=== PATIENT | female | born 1950 | race Caucasian/White ===

== ENCOUNTER 2020-05-15 13:24 | Outpatient (REF) | payer MEDICARE, BC, OTHER, SELFPAY ==
[2020-05-15 16:34] LABS: MANUAL DIFF FLAG NO
[2020-05-15 16:36] LABS: Basophils Percent Auto 0.5 % (0-2); Eosinophils Absolute Auto 0.1 X10*3/uL (0.0-0.4); Eosinophils Percent Auto 0.8 % (0-4); Hematocrit 42.1 % (37-47); Hemoglobin 13.6 g/dl (12.0-16.0); Imm Gran Abs Auto 0.03 X10*3/uL (0.00-0.03); Imm Gran Pct Auto 0.4 % (0.0-0.4); Lymphocytes Absolute Auto 1.6 X10*3/uL (1.2-4.9); Lymphocytes Percent Auto 18.3 % (20-40); Mean Corpuscular HGB Conc 32.3 g/dl (31.0-35.0); Mean Corpuscular Hemoglobin 30.3 pg (27.0-33.0); Mean Corpuscular Volume 93.8 fL (80-98); Mean Platelet Volume 9.3 fL (9.4-12.3); Monocytes Absolute Auto 0.9 X10*3/uL (0.1-1.2); Monocytes Percent Auto 10.7 % (2-11); Neutrophils Absolute Auto 5.9 X10*3/uL (2.0-8.3); Neutrophils Percent Auto 69.3 % (45-73); Platelet Count 247 X10*3/uL (160-400); Red Blood Count 4.49 X10*6/uL (4.20-5.50); Red Cell Distribution Width 15.4 % (11.0-16.0); White Blood Count 8.5 X10*3/uL (4.8-10.8)
[2020-05-15 17:17] LABS: Alanine Aminotransferase 16 U/L (0-31); Albumin Level 3.6 g/dL (3.5-5.0); Alkaline Phosphatase 119 U/L (39-117); Anion Gap 14 (12-20); Aspartate Amino Transferase 27 U/L (5-31); Bilirubin Total 0.9 mg/dL (0.0-1.0); Blood Urea Nitrogen 33 mg/dL (9-16); Calcium 8.9 mg/dL (8.4-10.2); Carbon Dioxide 36 mmol/L (22-29); Chloride 90 mmol/L (96-108); Estimated Glomerular Filt Rate 29; Magnesium 2.6 mg/dL (1.6-2.6); Phosphorus 4.4 mg/dL (2.7-4.5); Potassium 3.2 mmol/l (3.3-5.1); Sodium 137 mmol/L (135-145); Uric Acid 12.5 mg/dL (2.4-5.7)
[2020-05-15 17:19] LABS: Renal w Reflex Lab Use Only Order verified
[2020-05-15 17:24] LABS: B Type Natriuretic Peptide 603 pg/mL (<100)
[2020-05-15 17:39] LABS: Vitamin D 25-OH Total 35.5 ng/mL (>30)
[2020-05-15 18:01] LABS: Creatinine Urine 31.22 mg/dL; Sodium Urine Random < 20.0 mmol/L; Total Protein Urine Random < 7 mg/dL (<12)
[2020-05-15 18:02] LABS: Uric Acid Urine Random 18.6 mg/dL
[2020-05-17 16:37] LABS: Calcium (PTHI) 9.2 mg/dL (8.6-10.4); PTHI 122 pg/mL (14-64)
== END 2020-05-15 13:25 | disposition home or self-care (01) ==
LOC: HO.HMGCLDS 13:24
PROVIDERS: PCP Internal Medicine; Visit Provider Internal Medicine Nephrology
DX: E11.22 Type 2 diabetes mellitus with diabetic chronic kidney disease (principal); E11.21 Type 2 diabetes mellitus with diabetic nephropathy; I13.0 Hypertensive heart and chronic kidney disease with heart failure and stage 1 through stage 4 chronic kidney disease, or unspecified chronic kidney disease; N18.4 Chronic kidney disease, stage 4 (severe); I50.22 Chronic systolic (congestive) heart failure; E66.01 Morbid (severe) obesity due to excess calories; N28.9 Disorder of kidney and ureter, unspecified; E87.6 Hypokalemia; R31.9 Hematuria, unspecified; E55.9 Vitamin D deficiency, unspecified; N25.81 Secondary hyperparathyroidism of renal origin; R80.8 Other proteinuria
CPT/HCPCS: 36415; 80051; 82040; 82247; 82306; 82310; 82565; 83735; 83880; 83970; 84075; 84100; 84156; 84300; 84450; 84460; 84520; 84550; 84560; 85025

== ENCOUNTER → 2020-06-02 09:40 | Outpatient (BNVA) | payer MEDICARE, OTHER, SELFPAY | PROVIDERS: PCP Internal Medicine; Referring Provider Internal Medicine; Visit Provider Internal Medicine Pulmonary Disease | DX: J44.9 Chronic obstructive pulmonary disease, unspecified (principal); G47.33 Obstructive sleep apnea (adult) (pediatric); Z99.81 Dependence on supplemental oxygen | CPT/HCPCS: 99212 ==

== ENCOUNTER 2020-06-05 12:51 | Outpatient (REF) | payer MEDICARE, OTHER, SELFPAY ==
[2020-06-05 14:40] LABS: Anion Gap 11 (12-20); Blood Urea Nitrogen 34 mg/dL (9-16); Calcium 9.1 mg/dL (8.4-10.2); Carbon Dioxide 33 mmol/L (22-29); Chloride 96 mmol/L (96-108); Estimated Glomerular Filt Rate 36; Glucose Random 132 mg/dL (60-115); Potassium 3.8 mmol/l (3.3-5.1); Sodium 136 mmol/L (135-145)
[2020-06-05 14:57] LABS: B Type Natriuretic Peptide 736 pg/mL (<100)
== END 2020-06-05 12:52 | disposition home or self-care (01) ==
LOC: HO.HMGCLDS 12:51
PROVIDERS: PCP Internal Medicine; Visit Provider Nurse Practitioner Family
DX: I50.30 Unspecified diastolic (congestive) heart failure (principal)
CPT/HCPCS: 80048; 83880

== ENCOUNTER → 2020-06-13 09:26 | Outpatient (BNVA) | payer MEDICARE, OTHER, SELFPAY | PROVIDERS: PCP Internal Medicine; Referring Provider Internal Medicine; Visit Provider Internal Medicine Cardiovascular Disease | DX: I50.814 Right heart failure due to left heart failure (principal); I50.30 Unspecified diastolic (congestive) heart failure; I48.19 Other persistent atrial fibrillation; I27.20 Pulmonary hypertension, unspecified; G47.33 Obstructive sleep apnea (adult) (pediatric); J44.9 Chronic obstructive pulmonary disease, unspecified; Z79.01 Long term (current) use of anticoagulants; Z79.899 Other long term (current) drug therapy; Z99.81 Dependence on supplemental oxygen | CPT/HCPCS: Q3014 ==

== ENCOUNTER 2020-07-11 10:23 | Outpatient (REF) | payer MEDICARE, OTHER, SELFPAY ==
--- NOTE | 2020-07-11 | MM_ITS ---
EXAMINATION: MM SCREENING DIGITAL BREAST TOMOSYNTHESIS, BILATERAL CLINICAL INFORMATION: Screening. Asymptomatic. The lifetime risk of breast cancer based on the Tyrer-Cuzick Model is 3%. COMPARISON: Mammography: 07/06/2019, 06/30/2018, 05/03/2017 TECHNIQUE: Digital breast tomosynthesis is performed in both the craniocaudal and mediolateral oblique views along with computer-aided detection (CAD). Synthesized 2D images are generated from the tomosynthesis. Additional left exaggerated CC and left MLO views are provided. Technologist notes technically challenging exam, tailored to patient capabilities. FINDINGS: There are scattered areas of fibroglandular density (ACR BI-RADS breast composition Category b). Parenchymal pattern is similar to prior studies. There is no developing density or interval mass or architectural abnormality. Again, there are multiple mildly prominent draining veins, more numerous on right. Scattered bilateral round and vascular calcifications are present. The axilla are unremarkable. No significant changes. MM/MM tomosynthesis screening BI IMPRESSION: No significant changes from prior studies. ASSESSMENT: BI-RADS 2: Benign RECOMMENDATION: Routine annual mammography screening. This patient's information was entered into a reminder system with a target due date for their next mammogram.
== END 2020-07-11 10:24 | disposition home or self-care (01) ==
LOC: HO.MAMMO 10:23
PROVIDERS: PCP Internal Medicine; Visit Provider Internal Medicine
DX: Z12.31 Encounter for screening mammogram for malignant neoplasm of breast (principal)
CPT/HCPCS: 77063; 77067

== ENCOUNTER → 2020-07-24 10:09 | Outpatient (BNVA) | payer MEDICARE, OTHER, SELFPAY | PROVIDERS: PCP Internal Medicine; Referring Provider Internal Medicine; Visit Provider Internal Medicine Cardiovascular Disease | DX: I50.814 Right heart failure due to left heart failure (principal); I50.30 Unspecified diastolic (congestive) heart failure; I48.19 Other persistent atrial fibrillation | CPT/HCPCS: Q3014 ==

== ENCOUNTER → 2020-07-31 09:03 | Outpatient (BNVA) | payer MEDICARE, OTHER, SELFPAY | PROVIDERS: PCP Internal Medicine; Referring Provider Internal Medicine; Visit Provider Internal Medicine | DX: Z13.89 Encounter for screening for other disorder (principal) | CPT/HCPCS: Q3014 ==

== ENCOUNTER 2020-08-16 14:44 | Outpatient (REF) | payer MEDICARE, OTHER, SELFPAY ==
[2020-08-16 17:03] LABS: Alanine Aminotransferase 16 U/L (0-31); Albumin Level 3.9 g/dL (3.5-5.0); Alkaline Phosphatase 130 U/L (39-117); Anion Gap 16 (12-20); Aspartate Amino Transferase 25 U/L (5-31); Bilirubin Total 0.8 mg/dL (0.0-1.0); Blood Urea Nitrogen 50 mg/dL (9-16); Calcium 9.1 mg/dL (8.4-10.2); Carbon Dioxide 33 mmol/L (22-29); Chloride 91 mmol/L (96-108); Cholesterol 125 mg/dL; Estimated Glomerular Filt Rate 29; Glucose Random 185 mg/dL (60-115); HDL Cholesterol 46 mg/dL; LDL Cholesterol Calculated 62 mg/dl; Potassium 4.3 mmol/l (3.3-5.1); Sodium 136 mmol/L (135-145); Total Protein 7.3 g/dL (6.5-8.0); Triglycerides 89 mg/dL
[2020-08-16 17:07] LABS: B Type Natriuretic Peptide 549 pg/mL (<100)
[2020-08-16 17:11] LABS: Creatinine Urine 39.88 mg/dL; Microalbumin Urine < 5.0 mg/L
[2020-08-18 09:26] LABS: LDL Cholesterol Direct 65 mg/dL (<100)
[2020-08-19 21:12] LABS: Glutamic acid decarboxylase Ab <5 IU/mL (<5)
[2020-08-23 14:17] LABS: Insulinoma associated 2 aatb <5.4 U/mL (<5.4)
[2020-08-27 02:17] LABS: Islet Cell Antibody Screen NEGATIVE (NEGATIVE)
== END 2020-08-16 14:45 | disposition home or self-care (01) ==
LOC: HO.HMGCLDS 14:44
PROVIDERS: Absent Provider Internal Medicine; PCP Internal Medicine; Visit Provider Internal Medicine Cardiovascular Disease
DX: I13.0 Hypertensive heart and chronic kidney disease with heart failure and stage 1 through stage 4 chronic kidney disease, or unspecified chronic kidney disease (principal); E11.22 Type 2 diabetes mellitus with diabetic chronic kidney disease; I50.30 Unspecified diastolic (congestive) heart failure; I50.814 Right heart failure due to left heart failure; N18.9 Chronic kidney disease, unspecified
CPT/HCPCS: 36415; 80053; 80061; 82043; 83721; 83880; 86255; 86341

== ENCOUNTER → 2020-08-28 09:52 | Outpatient (BNVA) | payer MEDICARE, BC, OTHER, SELFPAY | PROVIDERS: PCP Internal Medicine; Visit Provider Internal Medicine | DX: Z13.89 Encounter for screening for other disorder (principal) | CPT/HCPCS: Q3014 ==

== ENCOUNTER → 2020-09-14 09:50 | Outpatient (BNVA) | payer MEDICARE, OTHER, SELFPAY | PROVIDERS: PCP Internal Medicine; Visit Provider Internal Medicine Cardiovascular Disease | DX: Z13.89 Encounter for screening for other disorder (principal) | CPT/HCPCS: Q3014 ==

== ENCOUNTER 2020-09-21 06:19 | Outpatient (REF) | payer MEDICARE, OTHER, SELFPAY ==
[2020-09-21 11:40] LABS: Hematocrit 41.2 % (37-47); Hemoglobin 14.2 g/dl (12.0-16.0); Mean Corpuscular HGB Conc 34.5 g/dl (31.0-35.0); Mean Corpuscular Hemoglobin 32.4 pg (27.0-33.0); Mean Corpuscular Volume 94.1 fL (80-98); Mean Platelet Volume 9.2 fL (9.4-12.3); Platelet Count 248 X10*3/uL (160-400); Red Blood Count 4.38 X10*6/uL (4.20-5.50); Red Cell Distribution Width 13.6 % (11.0-16.0); White Blood Count 10.2 X10*3/uL (4.8-10.8)
[2020-09-21 12:09] LABS: Anion Gap 14 (12-20); Blood Urea Nitrogen 40 mg/dL (9-16); Calcium 9.5 mg/dL (8.4-10.2); Carbon Dioxide 36 mmol/L (22-29); Chloride 86 mmol/L (96-108); Estimated Glomerular Filt Rate 30; Glucose Random 297 mg/dL (60-115); Potassium 3.3 mmol/L (3.3-5.1); Sodium 133 mmol/L (135-145)
[2020-09-21 12:12] LABS: B Type Natriuretic Peptide 267 pg/mL (<100)
== END 2020-09-21 06:20 | disposition home or self-care (01) ==
LOC: HO.LHD 06:19
PROVIDERS: Visit Provider Internal Medicine Cardiovascular Disease
DX: I50.30 Unspecified diastolic (congestive) heart failure (principal); J44.9 Chronic obstructive pulmonary disease, unspecified
CPT/HCPCS: 36415; 80048; 83880; 85027

== ENCOUNTER → 2020-09-28 09:07 | Outpatient (BNVA) | payer MEDICARE, BC, SELFPAY | PROVIDERS: PCP Internal Medicine; Visit Provider Internal Medicine Pulmonary Disease | DX: J44.9 Chronic obstructive pulmonary disease, unspecified (principal); G47.33 Obstructive sleep apnea (adult) (pediatric); Z99.81 Dependence on supplemental oxygen | CPT/HCPCS: 99212 ==

== ENCOUNTER → 2020-10-02 07:55 | Outpatient (BNVA) | payer MEDICARE, BC, SELFPAY | PROVIDERS: PCP Internal Medicine; Visit Provider Internal Medicine | DX: Z13.89 Encounter for screening for other disorder (principal) | CPT/HCPCS: Q3014 ==

== ENCOUNTER → 2020-10-23 09:10 | Outpatient (BNVA) | payer MEDICARE, BC, SELFPAY | PROVIDERS: PCP Internal Medicine; Visit Provider Internal Medicine | DX: Z13.89 Encounter for screening for other disorder (principal) | CPT/HCPCS: Q3014 ==

== ENCOUNTER → 2020-11-14 09:29 | Outpatient (BNVA) | payer MEDICARE, BC, SELFPAY | PROVIDERS: PCP Internal Medicine; Visit Provider Nurse Practitioner Family | DX: I50.30 Unspecified diastolic (congestive) heart failure (principal); I48.19 Other persistent atrial fibrillation; I10 Essential (primary) hypertension; E11.9 Type 2 diabetes mellitus without complications; G47.33 Obstructive sleep apnea (adult) (pediatric) | CPT/HCPCS: Q3014 ==

== ENCOUNTER → 2020-12-14 09:57 | Outpatient (BNVA) | payer MEDICARE, BC, SELFPAY | PROVIDERS: PCP Internal Medicine; Visit Provider Internal Medicine | DX: E11.22 Type 2 diabetes mellitus with diabetic chronic kidney disease (principal); I12.9 Hypertensive chronic kidney disease with stage 1 through stage 4 chronic kidney disease, or unspecified chronic kidney disease; N18.9 Chronic kidney disease, unspecified; E78.5 Hyperlipidemia, unspecified | CPT/HCPCS: 82947; 99212 ==

== ENCOUNTER 2021-01-01 01:03 | Outpatient (REF) | payer MEDICARE, BC, SELFPAY | END 2021-01-01 01:04 | disposition home or self-care (01) | LOC: HO.LHD 01:03 | PROVIDERS: Visit Provider Internal Medicine | DX: Z13.89 Encounter for screening for other disorder (principal) ==

== ENCOUNTER 2021-01-09 06:08 | Outpatient (REF) | payer MEDICARE, BC, SELFPAY ==
[2021-01-09 11:28] LABS: Alanine Aminotransferase 13 U/L (0-31); Albumin Level 3.8 g/dL (3.5-5.0); Alkaline Phosphatase 126 U/L (39-117); Anion Gap 16 (12-20); Aspartate Amino Transferase 28 U/L (5-31); Bilirubin Total 1.2 mg/dL (0.0-1.0); Blood Urea Nitrogen 34 mg/dL (9-16); Calcium 9.2 mg/dL (8.4-10.2); Carbon Dioxide 31 mmol/L (22-29); Chloride 94 mmol/L (96-108); Cholesterol 118 mg/dL; Estimated Glomerular Filt Rate 37; Glucose Random 78 mg/dL (60-115); HDL Cholesterol 45 mg/dL; LDL Cholesterol Calculated 62 mg/dl; Potassium 3.8 mmol/L (3.3-5.1); Sodium 137 mmol/L (135-145); Total Protein 7.1 g/dL (6.5-8.0); Triglycerides 55 mg/dL
[2021-01-09 12:18] LABS: Creatinine Urine 14.62 mg/dL; Microalbumin Urine < 5.0 mg/L
[2021-01-09 12:22] LABS: Vitamin B12 615 pg/mL (200-900)
[2021-01-10 19:11] LABS: LDL Cholesterol Direct 63 mg/dL (<100)
== END 2021-01-09 06:09 | disposition home or self-care (01) ==
LOC: HO.LHD 06:08
PROVIDERS: Visit Provider Internal Medicine
DX: E11.9 Type 2 diabetes mellitus without complications (principal); E55.9 Vitamin D deficiency, unspecified
CPT/HCPCS: 36415; 80053; 80061; 82043; 82306; 82607; 83721

== ENCOUNTER → 2021-01-30 09:06 | Outpatient (BNVA) | payer MEDICARE, BC, SELFPAY | PROVIDERS: PCP Internal Medicine; Visit Provider Internal Medicine Pulmonary Disease | CPT/HCPCS: Q3014 ==

== ENCOUNTER → 2021-02-08 09:01 | Outpatient (BNVA) | payer MEDICARE, BC, SELFPAY | PROVIDERS: PCP Internal Medicine; Visit Provider Internal Medicine Cardiovascular Disease | DX: Z13.89 Encounter for screening for other disorder (principal) | CPT/HCPCS: Q3014 ==

== ENCOUNTER 2021-02-08 14:06 | Inpatient (IN) | payer MEDICARE, BC, SELFPAY ==
--- NOTE | ~2021-02-08 | XR_ITS ---
EXAMINATION: XR CHEST CLINICAL INFORMATION: Lower extremity edema. COMPARISON: Chest 08/05/2019 TECHNIQUE: Frontal view of the chest was obtained. FINDINGS: The lungs are fairly well-expanded and clear of acute pneumonic process. Heart size is mildly enlarged with prominent pulmonary vascularity questioned mild congestion.. No gross bony abnormality seen except for mild degenerative changes bilateral AC joints and glenohumeral joints. XR/XR chest 1V IMPRESSION: Cardiomegaly with mild pulmonary vascular congestion.
[2021-02-08 14:21] VITALS: BP 108/66; BP 112/78; PULSE 80; PULSE 96; RESP 16; TEMP 36.9; O2SAT 94; O2SAT 96; BMI 38.1
--- NOTE | 2021-02-08 15:32 | ECG_ITS ---
Test Reason : SHORT OF BREATH Blood Pressure : / mmHG Vent. Rate : 092 BPM Atrial Rate : 096 BPM P-R Int : 000 ms QRS Dur : 098 ms QT Int : 404 ms P-R-T Axes : 000 010 -18 degrees QTc Int : 499 ms Atrial fibrillation with premature ventricular or aberrantly conducted complexes Low voltage QRS Incomplete right bundle branch block Abnormal ECG When compared with ECG of 29-JAN-2020 13:27, Vent. rate has decreased BY 55 BPM Referred By: Montse Alexandra Electronically Signed By:Dave Lau
[2021-02-08 16:18] LABS: MANUAL DIFF FLAG NO
[2021-02-08 16:19] LABS: Basophils Percent Auto 0.2 % (0-2); Eosinophils Absolute Auto 0.1 X10*3/uL (0.0-0.4); Eosinophils Percent Auto 1.4 % (0-4); Hematocrit 35.3 % (37-47); Hemoglobin 11.5 g/dl (12.0-16.0); Imm Gran Abs Auto 0.05 X10*3/uL (0.00-0.03); Imm Gran Pct Auto 0.5 % (0.0-0.4); Lymphocytes Absolute Auto 1.2 X10*3/uL (1.2-4.9); Lymphocytes Percent Auto 12.5 % (20-40); Mean Corpuscular HGB Conc 32.6 g/dl (31.0-35.0); Mean Corpuscular Hemoglobin 31.4 pg (27.0-33.0); Mean Corpuscular Volume 96.4 fL (80-98); Monocytes Absolute Auto 1.2 X10*3/uL (0.1-1.2); Monocytes Percent Auto 12.2 % (2-11); Neutrophils Absolute Auto 7.1 X10*3/uL (2.0-8.3); Neutrophils Percent Auto 73.2 % (45-73); Platelet Count 226 X10*3/uL (160-400); Red Blood Count 3.66 X10*6/uL (4.20-5.50); Red Cell Distribution Width 14.9 % (11.0-16.0); White Blood Count 9.7 X10*3/uL (4.8-10.8)
[2021-02-08 16:25] LABS: INTERNATIONAL NORM RATIO 1.5 (0.9-1.1); Prothrombin Time 17.1 SEC (9.9-13.0)
[2021-02-08 16:28] LABS: Partial Thromboplastin Time 38.3 SEC (24.1-38.0)
[2021-02-08] MEDS: Acetaminophen 325 MG TABLET 650 MG PO (16:42)
[2021-02-08] MEDS: Cyclobenzaprine HCl 5 MG TABLET PO (16:42)
[2021-02-08] MEDS: traMADoL HCL 50 MG TABLET PO (16:42)
[2021-02-08] MEDS: Lidocaine 4 % Patch ADH..PATCH 1 PATCH TRANSDERMA (16:43)
[2021-02-08 16:49] LABS: Alanine Aminotransferase 15 U/L (0-31); Albumin Level 3.4 g/dL (3.5-5.0); Alkaline Phosphatase 119 U/L (39-117); Anion Gap 13 (12-20); Aspartate Amino Transferase 30 U/L (5-31); Bilirubin Direct 0.5 mg/dL (0.0-0.5); Bilirubin Total 0.9 mg/dL (0.0-1.0); Blood Urea Nitrogen 40 mg/dL (9-16); Calcium 8.6 mg/dL (8.4-10.2); Carbon Dioxide 29 mmol/L (22-29); Chloride 101 mmol/L (96-108); Creatinine Clr Calc Pharmacy 39.5; Estimated Glomerular Filt Rate 33; Glucose Random 128 mg/dL (60-115); Magnesium 2.6 mg/dL (1.6-2.6); Sodium 139 mmol/L (135-145); Total Protein 6.4 g/dL (6.5-8.0)
--- NOTE | 2021-02-08 16:49 | ED_ITS ---
HPI - General Adult General Chief complaint: General Medical Stated complaint: BRIGIDO LL EDEMA X'S 2 WEEKS,LLE PAIN HX SCIATICA Time Seen by Provider: 02/08/21 15:15 Source: patient Mode of arrival: ambulatory History of Present Illness HPI narrative: 70-year-old female with a past medical history of heart failure with preserved EF, CKD, DM, HLD, HTN, obesity, AFib on Xarelto, tricuspid regurg, pulmonary hypertension, on chronic O2 2L NC, presenting to the ED complaining of bilateral lower extremity edema x1 week with 30 lb weight gain. Reports left-sided buttock/sciatic pain worsening over the past week radiating down left lower extremity which has been prevented her from getting up to use the bathroom this patient has been non compliant with her diuretics. Also reports exertional dyspnea. Denies CP, fever, chills, nausea/vomiting, urinary incontinence/retention, abdominal pain Related Data Home Medications Medication Instructions Recorded Confirmed cholecalciferol (vitamin D3) 25 25 mcg PO DAILY 04/24/20 02/08/21 mcg (1,000 unit) capsule potassium chloride 20 mEq 20 meq PO BID tab 04/24/20 02/08/21 tablet,extended release(part/cryst) vitamin B complex 1 tab PO DAILY 04/24/20 02/08/21 zinc acetate 50 mg (zinc) capsule 50 mg PO DAILY 04/24/20 02/08/21 docusate sodium 100 mg capsule 100 mg PO DAILY 06/13/20 02/08/21 multivitamin 1 tab PO DAILY 06/13/20 02/08/21 blood sugar diagnostic #10 ea 07/31/20 02/08/21 ferrous sulfate 325 mg (65 mg 325 mg PO DAILY 09/14/20 02/08/21 iron) tablet empagliflozin 25 mg tablet 25 mg PO DAILY 11/14/20 02/08/21 spironolactone 25 mg tablet 12.5 mg PO DAILY tab 12/22/20 02/08/21 bumetanide 6 mg PO DAILY 02/08/21 02/08/21 dulaglutide [Trulicity] 1.5 mg SUBCUT TH 02/08/21 02/08/21 insulin aspart U-100 [Novolog 18 unit SUBCUT TIDAC 02/08/21 02/08/21 Flexpen U-100 Insulin] Previous Rx's Medication Instructions Recorded blood sugar diagnostic #100 ea 08/16/20 pravastatin 20 mg tablet 20 mg PO BEDTIME #90 tab 10/02/20 pen needle, diabetic 32 gauge x 1 ea MISCELLANEOUS QID #100 ea 10/25/2012/10 metoprolol succinate 25 mg 25 mg PO BID 90 Days #180 tab 11/07/20 tablet,extended release 24 hr tiotropium bromide 18 mcg capsule 1 cap INHALATION DAILY #90 cap 11/20/20 with inhalation device gabapentin 300 mg capsule 300 mg PO TID 90 Days #270 cap 12/22/20 rivaroxaban 20 mg tablet 20 mg PO BEDTIME #90 tab 12/22/20 lancets 33 gauge #100 ea 01/01/21 insulin glargine 100 unit/mL (3 40 unit SUBCUT DAILY 90 Days #36 ml 01/28/21 mL) subcutaneous pen fluticasone 500 mcg-salmeterol 50 1 inh PO BID #180 g 01/31/21 mcg/dose blistr powdr for inhalation Allergies Allergy/AdvReac Type Severity Reaction Status Date / Time oxycodone [Percocet] Allergy Unknown nausea and Verified 01/30/21 09:07 vomiting Review of Systems Review of Systems: Constitutional: No Fever, No Chills, No Fatigue, No Malaise, +weight gain Cardiovascular: No Chest Pain, No SOB, + Dyspnea on Exertion, No Orthopnea, + Edema Respiratory: No Cough, No Dyspnea Gastrointestinal: No Nausea, No Vomiting, No Abdominal pain Genitourinary: No Dysuria, No Urinary Frequency, No Hematuria, No Urinary Incontinence/retention Musculoskeletal: + joint pain, No Myalgias, No Joint Swelling Skin: No Skin Lesions, No rash Neuro: No Weakness, No Numbness, No Headache Yes all other systems are reviewed and are negative Neurologic: Denies Sensory deficit (Neuro) [facility] Past Medical History Attestation statement: The following information was validated with the patient. Medical History (HFpEF) heart failure with preserved ejection fraction CKD (chronic kidney disease) Diabetes mellitus HLD (hyperlipidemia) HTN (hypertension) senior living (current) use of insulin Morbid obesity Paroxysmal atrial fibrillation Persistent atrial fibrillation Phlebitis of left leg Pulmonary hypertension Right heart failure (secondary to left heart failure) T2DM (type 2 diabetes mellitus) Tricuspid regurgitation Vitamin D deficiency Surgical History History of colectomy (~1983) History of colonoscopy History of hernia repair (~07/2011) History of hysteroscopy (~2007) History of left breast biopsy (~04/09/11) History of left inguinal hernia repair (~01/28/20) Family History Family History Father No problems noted. Mother No problems noted. Brother No problems noted. Son No problems noted. Social History Social History Alcohol intake: never Patient Tobacco Use Status: Former Tobacco user Advance Directives: Yes Advance Directives Information Provided: Yes Advance Directives on File: No Physical Exam Vital Signs: Vital Signs: Last Vital Signs Temp 98.6 F 02/08/21 16:56 Pulse 97 02/08/21 16:56 Resp 20 02/08/21 16:56 BP 111/86 02/08/21 16:56 Pulse Ox 98 02/08/21 16:56 Oxygen Flow Rate 3 02/08/21 14:21 Body Mass Index 38.1 Const: General: cooperative, healthy appearing and no acute distress Orientation/consciousness: patient oriented x3 Limitations: no limitations HENMT: Head: Yes normal to inspection Ears: hearing grossly normal bilaterally General nose exam: Normal external nose present Face and sinus: Yes normal facial exam Eyes: General: appearance normal, both eyes and all related structures EOM: EOMs intact bilaterally Neck: Neck: Yes normal visual inspection Resp: Effort & Inspection: normal respiratory effort Auscultation: clear to auscultation bilaterally and no wheezes Cardio: Rate: regular rate Heart sounds: S1 normal heart sound present and S2 normal heart sound present GI: Inspection: Yes normal to inspection Palpation (GI): Soft to palpation, nontender, no guarding and not rigid Back/Spine/Pelvis: Other: No midline thoracic/lumbar spinous tenderness. + left lower lumbar/left buttock MSK tenderness to palpation Skin: Rashes: no rashes Wounds: no wounds Neuro: Other: No saddle anesthesia General: patient oriented x3, tone normal and moves all extremities Sensory Exam: No Sensory deficit (Neuro) Extrem: Other: 4+ bilateral lower extremity pitting edema General: Yes normal to inspection Course Course Course Narrative: -no leukocytosis, H&H lower than baseline (has been low in the past), renal function at patient's baseline, BNP elevated at 637 -troponin 12.1 > will obtain 3 hour repeat XR chest 1V IMPRESSION: Cardiomegaly with mild pulmonary vascular congestion. >> plan to admit for CHF exacerbation -1730--Patient admitted to hospitalist service for further management. Hospitalist recommended 2mg of IV Bumex and 5 of p.o. Metolazone Medical Decision Making MDM Narrative Medical decision making narrative: 70-year-old female with a past medical history of heart failure with preserved EF, CKD, DM, HLD, HTN, obesity, AFib on Xarelto, tricuspid regurg, pulmonary hypertension, on chronic O2 2L NC, presenting to the ED complaining of bilateral lower extremity edema x1 week with 30 lb weight gain. Also reports exertional dyspnea. On exam VSS, NAD, brigido ateral lower extremity pitting edema noted. No midline spinous tenderness throughout or red flag symptoms. Concern for CHF/fluid overload and sciatic back pain. Low concern for DVT/ACS/PE or cauda equina/cord compression Plan: EKG, labs, UA, CXR. admission Lab Data Result diagrams: 02/08/21 16:13 02/08/21 16:13 Labs: Lab Results 02/08/21 02/08/21 02/08/21 Range/Units 16:13 16:13 16:13 WBC 9.7 (4.8-10.8) X10*3/uL RBC 3.66 L (4.20-5.50) X10*6/uL Hgb 11.5 L (12.0-16.0) g/dl Hct 35.3 L (37-47) % MCV 96.4 (80-98) fL MCH 31.4 (27.0-33.0) pg MCHC 32.6 (31.0-35.0) g/dl RDW 14.9 (11.0-16.0) % Plt Count 226 (160-400) X10*3/uL MPV 8.0 L (9.4-12.3) fL Immature Gran % (Auto) 0.5 H (0.0-0.4) % Neut % (Auto) 73.2 H (45-73) % Lymph % (Auto) 12.5 L (20-40) % [place] % (Auto) 12.2 H (2-11) % Eos % (Auto) 1.4 (0-4) % Baso % (Auto) 0.2 (0-2) % Lymph # (Auto) 1.2 (1.2-4.9) X10*3/uL [place] # (Auto) 1.2 (0.1-1.2) X10*3/uL Eos # (Auto) 0.1 (0.0-0.4) X10*3/uL Baso # (Auto) 0.0 (0.0-0.2) X10*3/uL Abs Immat Gran (auto) 0.05 H (0.00-0.03) X10*3/uL Absolute Neuts (auto) 7.1 (2.0-8.3) X10*3/uL Absolute Nucleated RBC 0.000 (0.0-0.012) X10*3/uL Nucleated RBC % (auto) 0.0 (0.0-0.2) /100WBC PT 17.1 H (9.9-13.0) SEC INR 1.5 H (0.9-1.1) APTT 38.3 H (24.1-38.0) SEC Sodium 139 (135-145) mmol/L Potassium 4.0 (3.3-5.1) mmol/L Chloride 101 (96-108) mmol/L Carbon Dioxide 29 (22-29) mmol/L Anion Gap 13 (12-20) BUN 40 H (9-16) mg/dL Creatinine 1.56 H (0.5-1.4) mg/dL Estim Creat Clear Calc 39.5 Estimated GFR 33 Random Glucose 128 H D (60-115) mg/dL Calcium 8.6 D (8.4-10.2) mg/dL Magnesium 2.6 (1.6-2.6) mg/dL Total Bilirubin 0.9 (0.0-1.0) mg/dL Direct Bilirubin 0.5 (0.0-0.5) mg/dL AST 30 (5-31) U/L ALT 15 (0-31) U/L Alkaline Phosphatase 119 H (39-117) U/L Troponin I High Sens (<3.5-17.0) ng/L B-Natriuretic Peptide (<100) pg/mL Total Protein 6.4 L (6.5-8.0) g/dL Albumin 3.4 L (3.5-5.0) g/dL Urine Color Urine Appearance Urine pH (5.0-8.0) Ur Specific [place] (1.005-1.025) Urine Protein (NEG-TRACE) MG/DL Urine Glucose (UA) (NEG) MG/DL Urine Ketones (NEG) MG/DL Urine Blood (NEG) Urine Nitrite (NEG) Ur Leukocyte Esterase (NEG) 02/08/21 02/08/21 Range/Units 16:13 16:55 WBC (4.8-10.8) X10*3/uL RBC (4.20-5.50) X10*6/uL Hgb (12.0-16.0) g/dl Hct (37-47) % MCV (80-98) fL MCH (27.0-33.0) pg MCHC (31.0-35.0) g/dl RDW (11.0-16.0) % Plt Count (160-400) X10*3/uL MPV (9.4-12.3) fL Immature Gran % (Auto) (0.0-0.4) % Neut % (Auto) (45-73) % Lymph % (Auto) (20-40) % [place] % (Auto) (2-11) % Eos % (Auto) (0-4) % Baso % (Auto) (0-2) % Lymph # (Auto) (1.2-4.9) X10*3/uL [place] # (Auto) (0.1-1.2) X10*3/uL Eos # (Auto) (0.0-0.4) X10*3/uL Baso # (Auto) (0.0-0.2) X10*3/uL Abs Immat Gran (auto) (0.00-0.03) X10*3/uL Absolute Neuts (auto) (2.0-8.3) X10*3/uL Absolute Nucleated RBC (0.0-0.012) X10*3/uL Nucleated RBC % (auto) (0.0-0.2) /100WBC PT (9.9-13.0) SEC INR (0.9-1.1) APTT (24.1-38.0) SEC Sodium (135-145) mmol/L Potassium (3.3-5.1) mmol/L Chloride (96-108) mmol/L Carbon Dioxide (22-29) mmol/L Anion Gap (12-20) BUN (9-16) mg/dL Creatinine (0.5-1.4) mg/dL Estim Creat Clear Calc Estimated GFR Random Glucose (60-115) mg/dL Calcium (8.4-10.2) mg/dL Magnesium (1.6-2.6) mg/dL Total Bilirubin (0.0-1.0) mg/dL Direct Bilirubin (0.0-0.5) mg/dL AST (5-31) U/L ALT (0-31) U/L Alkaline Phosphatase (39-117) U/L Troponin I High Sens 12.1 (<3.5-17.0) ng/L B-Natriuretic Peptide 637 H (<100) pg/mL Total Protein (6.5-8.0) g/dL Albumin (3.5-5.0) g/dL Urine Color YELLOW Urine Appearance CLEAR Urine pH 5.5 (5.0-8.0) Ur Specific [place] 1.010 (1.005-1.025) Urine Protein NEG (NEG-TRACE) MG/DL Urine Glucose (UA) >=1000 H (NEG) MG/DL Urine Ketones NEG (NEG) MG/DL Urine Blood NEG (NEG) Urine Nitrite NEG (NEG) Ur Leukocyte Esterase NEG (NEG) Discharge Plan Discharge Clinical Impression: Congestive heart failure (CHF) Patient Disposition: Admitted As Inpatient
[2021-02-08 16:52] LABS: COVID-19 Test Negative (Negative)
[2021-02-08 16:54] LABS: B Type Natriuretic Peptide 637 pg/mL (<100); Troponin-I High Sensitivity 12.1 ng/L (<3.5-17.0)
[2021-02-08 16:56] VITALS: BP 111/86; PULSE 97; RESP 20; TEMP 37; O2SAT 98
[2021-02-08 17:15] LABS: Glucose Urine UA >=1000 MG/DL (NEG); Leukocyte Esterase Urine NEG (NEG); Nitrite Urine NEG (NEG); PH 5.5 (5.0-8.0); Urine Blood NEG (NEG); Urine Ketones NEG (NEG); Urine Protein NEG (NEG-TRACE)
[2021-02-08 17:21] LABS: Appearance Urine CLEAR; Color Urine YELLOW
--- NOTE | 2021-02-08 17:57 | PM.IMHP ---
History of Present Illness Date of Service: 02/08/21 Chief Complaint: Edema, weight gain, dyspnea A 70 years old lady with PMH with CHF diastolic, diabetes, CKD, HTN, AFib on Xarelto, on home oxygen 2 L among others who presented to the hospital with worsening bilateral lower extremities edema and weight gain over the last few weeks. The patient reports she started to have sciatica pain more than week ago and was unable to run back and forth to the bathroom so she stopped taking the metolazone and noticed that she has been gaining more weight. 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 The patient denies any chest pain but reports having dyspnea on exertion and increased edema in lower extremities, abdomen. In the emergency she was found to have elevated BNP with picture of CHF exacerbation. Admitted further evaluation and treatment. Review of Systems Review of Systems: No fever, chills or weakness No chest pain, but reported edema in lower extremities Dyspnea on exertion with no reported coughing No abdominal pain, nausea or vomiting, increased abdominal cares No urinary symptoms No any rash or wounds [facility] Medical History (HFpEF) heart failure with preserved ejection fraction CKD (chronic kidney disease) Diabetes mellitus HLD (hyperlipidemia) HTN (hypertension) skilled nursing (current) use of insulin Morbid obesity Paroxysmal atrial fibrillation Persistent atrial fibrillation Phlebitis of left leg Pulmonary hypertension Right heart failure (secondary to left heart failure) T2DM (type 2 diabetes mellitus) Tricuspid regurgitation Vitamin D deficiency Family History Father No problems noted. Mother No problems noted. Brother No problems noted. Son No problems noted. Surgical History History of colectomy (~1983) History of colonoscopy History of hernia repair (~07/2011) History of hysteroscopy (~2007) History of left breast biopsy (~04/09/11) History of left inguinal hernia repair (~01/28/20) Social History Alcohol intake: never Patient Tobacco Use Status: Former Tobacco user Advance Directives: Yes Advance Directives Information Provided: Yes Advance Directives on File: No Meds Allergies Allergy/AdvReac Type Severity Reaction Status Date / Time oxycodone [Percocet] Allergy Unknown nausea and Verified 01/30/21 09:07 vomiting Active Medications: Current Medications Generic Name Dose Route Start Last Admin Trade Name Freryan PRN Reason Stop Dose Admin Pharmacy Consult 1 each 02/08/21 15:32 Consult Rx Perform Med Rec MISCELLANE ONCE PRN Consult order Home Medications Medication Instructions Recorded Confirmed Last Taken Type cholecalciferol (vitamin D3) 25 25 mcg PO DAILY 04/24/20 02/08/21 02/07/21 History mcg (1,000 unit) capsule potassium chloride 20 mEq 20 meq PO BID tab 04/24/20 02/08/21 02/07/21 History tablet,extended release(part/cryst) vitamin B complex 1 tab PO DAILY 04/24/20 02/08/21 02/07/21 History zinc acetate 50 mg (zinc) capsule 50 mg PO DAILY 04/24/20 02/08/21 02/07/21 History docusate sodium 100 mg capsule 100 mg PO DAILY 06/13/20 02/08/21 02/07/21 History multivitamin 1 tab PO DAILY 06/13/20 02/08/21 02/07/21 History blood sugar diagnostic #10 ea 07/31/20 02/08/21 Unknown History ferrous sulfate 325 mg (65 mg 325 mg PO DAILY 09/14/20 02/08/21 02/07/21 History iron) tablet empagliflozin 25 mg tablet 25 mg PO DAILY 11/14/20 02/08/21 02/07/21 History spironolactone 25 mg tablet 12.5 mg PO DAILY tab 12/22/20 02/08/21 02/08/21 History bumetanide 6 mg PO DAILY 02/08/21 02/08/21 02/08/21 History dulaglutide [Trulicity] 1.5 mg SUBCUT TH 02/08/21 02/08/21 02/08/21 History insulin aspart U-100 [Novolog 18 unit SUBCUT TIDAC 02/08/21 02/08/21 02/08/21 History Flexpen U-100 Insulin] Physical Exam Vital Signs and Narrative: Vital Signs: Last Vital Signs Temp 98.6 F 02/08/21 16:56 Pulse 97 02/08/21 16:56 Resp 20 02/08/21 16:56 BP 111/86 02/08/21 16:56 Pulse Ox 98 02/08/21 16:56 Oxygen Flow Rate 3 02/08/21 14:21 Body Mass Index 38.1 Const: Other: Constitutional : Alert, oriented, not in distress Neck : Normal inspection, Supple Cardiovascular : RRR, S1 S2, bilateral +3 pitting lower extremity edema Respiratory : Decrease bilateral air entry, bases bilateral crackles, wheezes or rhonchi Gastrointestinal: soft, lax, Normal bowel sounds, Non tender Skin : Warm/Dry, evidence of stasis dermatitis Neurological : Alert & oriented x3, No focal deficit S she is the from head patient Results Labs CBC and Chem 7: 02/08/21 16:13 02/08/21 16:13 Labs: Laboratory Results - last 24 hr 02/08/21 02/08/21 02/08/21 16:13 16:13 16:13 MCV 96.4 MCH 31.4 MCHC 32.6 RDW 14.9 Plt Count 226 MPV 8.0 L Immature Gran % (Auto) 0.5 H Neut % (Auto) 73.2 H Lymph % (Auto) 12.5 L [place] % (Auto) 12.2 H Eos % (Auto) 1.4 Baso % (Auto) 0.2 Lymph # (Auto) 1.2 [place] # (Auto) 1.2 Eos # (Auto) 0.1 Baso # (Auto) 0.0 Abs Immat Gran (auto) 0.05 H Absolute Neuts (auto) 7.1 Absolute Nucleated RBC 0.000 Nucleated RBC % (auto) 0.0 PT 17.1 H INR 1.5 H APTT 38.3 H Anion Gap 13 Estim Creat Clear Calc 39.5 Estimated GFR 33 Random Glucose 128 H D Calcium 8.6 D Magnesium 2.6 Total Bilirubin 0.9 Direct Bilirubin 0.5 AST 30 ALT 15 Alkaline Phosphatase 119 H Troponin I High Sens B-Natriuretic Peptide Total Protein 6.4 L Albumin 3.4 L Urine Color Urine Appearance Urine pH Ur Specific [place] Urine Protein Urine Glucose (UA) Urine Ketones Urine Blood Urine Nitrite Ur Leukocyte Esterase 02/08/21 02/08/21 16:13 16:55 MCV MCH MCHC RDW Plt Count MPV Immature Gran % (Auto) Neut % (Auto) Lymph % (Auto) [place] % (Auto) Eos % (Auto) Baso % (Auto) Lymph # (Auto) [place] # (Auto) Eos # (Auto) Baso # (Auto) Abs Immat Gran (auto) Absolute Neuts (auto) Absolute Nucleated RBC Nucleated RBC % (auto) PT INR APTT Anion Gap Estim Creat Clear Calc Estimated GFR Random Glucose Calcium Magnesium Total Bilirubin Direct Bilirubin AST ALT Alkaline Phosphatase Troponin I High Sens 12.1 B-Natriuretic Peptide 637 H Total Protein Albumin Urine Color YELLOW Urine Appearance CLEAR Urine pH 5.5 Ur Specific [place] 1.010 Urine Protein NEG Urine Glucose (UA) >=1000 H Urine Ketones NEG Urine Blood NEG Urine Nitrite NEG Ur Leukocyte Esterase NEG Imaging Radiologist's Impressions: Impressions Chest X-Ray 02/08/21 15:33 IMPRESSION: Cardiomegaly with mild pulmonary vascular congestion. Assessment and Plan (1) (HFpEF) heart failure with preserved ejection fraction: Status: Acute (2) Persistent atrial fibrillation: Status: Acute A 70 years old lady with PMH with CHF diastolic, diabetes, CKD, HTN, AFib on Xarelto, on home oxygen 2 L among others who presented to the hospital with worsening bilateral lower extremities edema and weight gain over the last few weeks. Congestive heart failure Elevated BNP with CXR suggestive of fluid overload Place Perez catheter Check an echo Start metolazone Start Bumex 2 mg IV b.i.d. Monitor intake and output Get cardiology evaluation in the morning Weight gain Lower extremity edema Secondary to CHF Treatment with diuresis Diabetes type 2 Start Lantus 30 units SSI next [place] diabetic diet Atrial fibrillation Continue metoprolol and Xarelto DVT PPX Xarelto Quality Stroke Does the patient have a stroke diagnosis?: No VTE Prior VTE?: No VTE Risk Level:: Medical - low VTE Device Contraindication: Treatment Not Indicated VTE Drug Contraindication: N/A - Med Ordered
[2021-02-08 18:18] LABS: RBC Urine 0 /HPF (0); Squamous Epithelial Cell Urine 2+ /LPF
--- NOTE | 2021-02-08 19:51 | PC.NURSE ---
Called [facility] to give RN to RN report, but [facility] RN is unavailable at this time. Awaiting call back.
[2021-02-08 20:13] VITALS: BP 100/61; PULSE 83; RESP 20; TEMP 36.8; O2SAT 94
[2021-02-08 20:13] LABS: Troponin-I High Sensitivity 13.9 ng/L (<3.5-17.0)
[2021-02-08] MEDS: Bumetanide 1 MG/4 ML VIAL 2 MG IVPUSH (20:21)
[2021-02-08] MEDS: metOLazone 5 MG TABLET PO (20:21)
--- NOTE | 2021-02-08 20:56 | MHC.CM.PN ---
Addendum entered by Chyna Hayes 02/08/21 21:06: No referrals placed Original Note: CM met with patient. A&Ox3. SOB with minimal exertion. IMM reviewed and signed per protocol 02/08/21@[id number]. HCP/son Tino Little ([phone]). HCP is on file. PCP is Dr. Teri Max. Pt uses O2@2L at home. Pt lives alone. Uses a walker and has diabetic supplies. Pt has DM supplies. Pt has been suffering from sciatica the past several weeks and has not been compliant with meds. 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 Pt evaluation has been ordered. D/C plan is home with VNA vs STR. Pt would rather have VNA services at home and has used [facility] in the past. Transportation home by son. CM to follow for d/c needs.
[2021-02-08 22:19] VITALS: BP 117/62; PULSE 69; RESP 18; TEMP 36.8; O2SAT 92
[2021-02-08 22:31] LABS: Glucose, Whole Blood 48 mg/dL (60-115)
[2021-02-08 23:02] LABS: Glucose, Whole Blood 78 mg/dL (60-115)
[2021-02-08] MEDS: Rivaroxaban 20 MG TABLET PO (23:43)
[2021-02-08] MEDS: Potassium Chloride ER 20 MEQ TAB.ER.PRT PO (23:43)
[2021-02-08 23:44] VITALS: BP 117/62; PULSE 69
[2021-02-08] MEDS: Pravastatin Sodium 20 MG TABLET PO (23:44)
[2021-02-08] MEDS: Gabapentin 300 MG CAPSULE PO (23:44)
[2021-02-08] MEDS: Metoprolol Succinate ER 25 MG TAB.ER.24H PO (23:44)
[2021-02-09] VITALS (10 sets, daily range): BP systolic 100–131; BP diastolic 54–78; PULSE 84–103; RESP 18–20; TEMP 36.7–36.8; O2SAT 94–97; BMI 39.4
[2021-02-09] MEDS: Acetaminophen 325 MG TABLET 650 MG PO ×3 (02:54→20:17)
[2021-02-09 06:28] LABS: Hematocrit 34.8 % (37-47); Hemoglobin 11.4 g/dl (12.0-16.0); Mean Corpuscular HGB Conc 32.8 g/dl (31.0-35.0); Mean Corpuscular Hemoglobin 32.1 pg (27.0-33.0); Mean Platelet Volume 8.5 fL (9.4-12.3); Platelet Count 243 X10*3/uL (160-400); Red Blood Count 3.55 X10*6/uL (4.20-5.50); Red Cell Distribution Width 14.9 % (11.0-16.0); White Blood Count 7.9 X10*3/uL (4.8-10.8)
[2021-02-09] MEDS: metOLazone 2.5 MG TABLET PO (06:40)
[2021-02-09 06:55] LABS: Anion Gap 14 (12-20); Blood Urea Nitrogen 36 mg/dL (9-16); Calcium 8.7 mg/dL (8.4-10.2); Carbon Dioxide 33 mmol/L (22-29); Chloride 100 mmol/L (96-108); Creatinine Clr Calc Pharmacy 43.7; Estimated Glomerular Filt Rate 36; Glucose Random 99 mg/dL (60-115); Potassium 4.1 mmol/L (3.3-5.1); Sodium 143 mmol/L (135-145)
[2021-02-09 06:59] LABS: B Type Natriuretic Peptide 845 pg/mL (<100)
[2021-02-09 07:27] LABS: Glucose, Whole Blood 78 mg/dL (60-115)
--- NOTE | 2021-02-09 07:30 | CA_ITS ---
Transthoracic Echocardiogram Patient (Last, First, Middle): Ragini Little, Gender: Female Date of : 1950 Age: 70 Procedure Date: 02/09/2021 Procedure Type: Transthoracic Echocardiogram Location: [facility] [place] Height: 165.1 cm Weight: 107.5 kg BSA: 2.13 m2 Heart Rate: bpm BP: 100 / 54 mmHg Coil Tier: PRICE Referring MD: Codey Haines MD Symptoms: CHF evaluation Study Quality: Technically Difficult Conclusions: - Normal left ventricular size and systolic function. - There is a flattened septum in diastole ( D shaped left ventricle) consistent with right ventricular volume overload. Diastolic function is indeterminate on the basis of available data. - Mildly increased right ventricular cavity size. There is normal right ventricular systolic function. - Severe biatrial enlargement. - There is moderate to severe tricuspid valve regurgitation. Significantly elevated right atrial pressure. Moderate pulmonary hypertension is present. - The inferior vena cava is severely dilated and does not collapse with inspiration. Findings Procedure Information Contrast agent, definity, is being given per protocol without apparent complications. Left Ventricle Normal left ventricular size and systolic function. There is mildly increased left ventricular wall thickness. The visually estimated ejection fraction is between 55-60%. There is no evidence of regional wall motion abnormalities. There is a flattened septum in diastole ( D shaped left ventricle) consistent with right ventricular volume overload. Diastolic function is indeterminate on the basis of available data. Right Ventricle Mildly increased right ventricular cavity size. There is normal right ventricular systolic function. Atria Severe biatrial enlargement. Aortic Valve There is a normal trileaflet aortic valve. There is mild calcification of the aortic valve. There is mild thickening of the aortic valve. There is no aortic valve stenosis. There is no aortic valve regurgitation. Mitral Valve Normal mitral valve structure and function. There is trace mitral valve regurgitation. There is no mitral valve stenosis. Pulmonic Valve Normal pulmonic valve structure and function. There is trace pulmonic valve regurgitation. Tricuspid Valve The tricuspid valve was not well visualized. There is moderate to severe tricuspid valve regurgitation. Significantly elevated right atrial pressure. Moderate pulmonary hypertension is present. Great Vessels There is mild dilatation of the ascending aorta measuring 3.50 cm. The visualized portions of the pulmonary artery and branches are normal. Venous The inferior vena cava is severely dilated and does not collapse with inspiration. Pericardium/Pleural There is no evidence of pericardial effusion. Prior Study Comparison No significant change compared to prior study dated: 01/09/2019. Measurements 2D Linear Measurements IVSd: 0.93 0.6-0.9/0.6-1.0 cm LVIDd: 5.13 3.9-5.3/4.2-5.9 cm LVIDd Index: 2.41 2.4-3.2/2.2-3.1 cm/m2 LVIDs: 3.53 2.0-3.6 cm LVPWd: 1.05 0.7-1.1 cm Ao Root: 3.70 2.1-3.5 cm LA Diam: 4.20 2.7-3.8/3.0-4.0 cm LAIDs Index: 1.97 1.5-2.3 cm/m2 LV Mass: 233.55 67-162/88-224 g LV Mass Index: 109.65 43-95/49-115 g/m2 LVOT Diam: 2.20 3.0+(-)1.3 cm Aortic Valve AoV Pk Felix: 1.06 AoV Mn Felix: 0.78 AoV VTI: 0.21 AoV Pk Grad: 4.00 Aov Mn Grad: 3.00 DAVID Cont.VTI: 3.09 LVOT LVOT Pk Felix: 0.75 LVOT Mn Felix: 0.51 LVOT VTI: 0.17 LVOT Pk Grad: 2.00 LVOT Mn Grad: 1.00 LVOT Diam: 2.20 LVOT Area: 3.80 Tricuspid Valve TR Pk Felix: 3.14 TR Pk Grad: 39.00 RA Press: 15.00 RVSP: 54.00 Great Vessels Aorta Ao Root-2D: 3.70 2.0-3.7 cm Ao Asc: 3.50 2.1-3.4 cm Ao Arch: 2.40 Updated in Other Vendor System with Status of Final Dave Lau MD electronically signed on 02/09/2021 10:55:49 PM with status of Final
[2021-02-09] MEDS: Potassium Chloride ER 20 MEQ TAB.ER.PRT PO ×2 (08:28→20:13)
[2021-02-09] MEDS: Metoprolol Succinate ER 25 MG TAB.ER.24H PO ×2 (08:28→20:14)
[2021-02-09] MEDS: Docusate Sodium 100 MG CAPSULE PO (08:28)
[2021-02-09] MEDS: Insulin Glargine,Hum.rec.anlog 100 UNIT/ML 10 ML VIAL 30 UNIT SUBCUT (08:29)
[2021-02-09] MEDS: Spironolactone 25 MG TABLET 12.5 MG PO (08:29)
[2021-02-09] MEDS: Bumetanide 1 MG/4 ML VIAL 2 MG IVPUSH ×2 (08:29→16:10)
[2021-02-09] MEDS: Gabapentin 300 MG CAPSULE PO ×3 (08:29→20:15)
[2021-02-09] MEDS: 0.9 % Sodium Chloride Flush 3 ML SYRINGE IVFLUSH ×4 (08:33→20:19)
--- NOTE | 2021-02-09 09:49 | P.CDIC_ITS ---
CDI Concurrent Query Service Date: 02/09/21 Documentation Clarification: Please clarify if you are treating a proba ble/suspected/likely or confirmed: CKD, please specify stage 1 - 5 Provider Response: CKD Stage 3 PLEASE DO NOT DELETE/MODIFY EXISTING CONTENT Additional information is needed in order to code to the highest accuracy and appropriate Severity of Illness (SOI). Please clarify the information noted below in your progress notes and discharge summary. Risk Factors/Clinical Indicators/Treatments PMH: CKD BUN 40 Creatinine 1.56 CDS: Luna Vázquez RN Contact Number: [phone] Please Review the information above and exercise your independent professional judgment in responding to the query. If you concur, pleas document in the PROGRESS NOTES and DISCHARGE SUMMARY. If you do not agree with the query, please document in the query above. THIS QUERY IS PART OF THE PERMANENT MEDICAL RECORD
--- NOTE | 2021-02-09 11:11 | P.CONCA_ITS ---
History of Present Illness History of Present Illness Date of Service: 02/09/21 Requesting physician: Codey Haines Chief complaint: Weight gain, Edema Narrative: 70-year-old female with background history of heart failure with preserved ejection fraction, right heart failure, diabetes and persistent atrial fibrillation who is here for congestive heart failure. She unfortunately had sciatica and was unable to walk and stopped using her metolazone because she had to urinate frequently. She has been taking Bumex 3 mg twice a day and was doing well with that and up to twice a week metolazone. Due to back issues she stopped using metolazone and started noticing edema in her legs and some shortness of breath. With these symptoms she called our office and was advised to go to the emergency department. She was admitted for IV diuretics. She is currently getting 2 mg IV b.i.d. Bumex and is improving. Clinically she is volume overloaded. Denies any other issues right now. 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 Mother No problems noted. Brother No problems noted. Son No problems noted. Surgical History Surgical History History of colectomy (~1983) History of colonoscopy History of hernia repair (~07/2011) History of hysteroscopy (~2007) History of left breast biopsy (~04/09/11) History of left inguinal hernia repair (~01/28/20) Social History Social History Household Members: None Housing: Apartment Do you presently have visiting nurse or other home services: No Alcohol intake: never Patient Tobacco Use Status: Former Tobacco user Use of substances other than those prescribed or required for medical reasons: No Currently Displaying Signs/Symptoms of Drug Intoxication Withdrawal: No Have you been hit, kicked, punched, or otherwise hurt by someone within the past year? If so, by whom?: No Do you feel safe in your current relationship?: No Current Relationship Is there a partner from a previous relationship who is making you feel unsafe now?: No Are you made to feel afraid or neglected: No Advance Directives: Yes Advance Directives Information Provided: Yes Advance Directives on File: No Advance Directives Date on File: 02/09/21 Do you have thoughts of harming others: None Do you have a plan to hurt others: No Plan Recently lost weight without trying: No Nutrition Risks: No Nutritional Risk Patient : No : No Poor oral hygiene: No service: No Current occupational status: retired [email or web address] Allergies Allergy/AdvReac Type Severity Reaction Status Date / Time oxycodone [Percocet] Allergy Unknown nausea and Verified 01/30/21 09:07 vomiting Active Medications: Current Medications Generic Name Dose Route Start Last Admin Trade Name Freq PRN Reason Stop Dose Admin Acetaminophen 650 mg 02/08/21 17:49 02/09/21 02:54 Acetaminophen 325 Mg Tablet PO 650 mg Q6H PRN Administration Pain, Mild (Pain Scale 1-3) Bumetanide 2 mg 02/09/21 08:00 02/09/21 08:29 Bumetanide 1 Mg/4 Ml Vial IVPUSH 2 mg BID@0800,1700 [facility] Administration Protocol Docusate Sodium 100 mg 02/09/21 09:00 02/09/21 08:28 Docusate Sodium 100 Mg Capsule PO 100 mg DAILY [facility] Administration Fluticasone/Vilanterol 1 puff 02/09/21 08:00 02/09/21 09:30 Fluticasone/Vilanterol 200/25 Blst.W.Dev INHALE Not Given RDAILY [facility] Gabapentin 300 mg 02/08/21 21:00 02/09/21 08:29 Gabapentin 300 Mg Capsule PO 300 mg TID [facility] Administration Insulin Glargine 30 unit 02/09/21 09:00 02/09/21 08:29 Insulin Glargine,Hum.Rec.Anlog 100 Unit/Ml 10 Ml Vial SUBCUT 30 unit DAILY [facility] Administration Insulin Human Lispro 0 unit 02/08/21 21:00 02/09/21 07:45 Insulin Lispro 100 Unit/Ml 3 Ml Vial SUBCUT Not Given QIDACHS [facility] Protocol Metolazone 2.5 mg 02/09/21 06:30 02/09/21 06:40 Metolazone 2.5 Mg Tablet PO 2.5 mg DAILY@0630 SHILPA Administration Metoprolol Succinate 25 mg 02/08/21 21:00 02/09/21 08:28 Metoprolol Succinate Er 25 Mg Tab.Er.24h PO 25 mg BID SHILPA Administration Protocol Ondansetron HCl 4 mg 02/08/21 17:49 Ondansetron Hcl 4 Mg/2 Ml Vial IVPUSH Q8H PRN Nausea and Vomiting Pharmacy Consult 1 each 02/08/21 15:32 Consult Rx Perform Med Rec MISCELLANE ONCE PRN Consult order Potassium Chloride 20 meq 02/08/21 21:00 02/09/21 08:28 Potassium Chloride Er 20 Meq Tab.Er.Prt PO 20 meq BID SHILPA Administration Pravastatin Sodium 20 mg 02/08/21 21:00 02/08/21 23:44 Pravastatin Sodium 20 Mg Tablet PO 20 mg BEDTIME SHILPA Administration Rivaroxaban 20 mg 02/08/21 21:00 02/08/21 23:43 Rivaroxaban 20 Mg Tablet PO 20 mg BEDTIME SHILPA Administration Sodium Chloride 3 ml 02/09/21 00:00 02/09/21 08:33 0.9 % Sodium Chloride Flush 3 Ml Syringe IVFLUSH 3 ml QSHIFT [facility] Administration Spironolactone 12.5 mg 02/09/21 09:00 02/09/21 08:29 Spironolactone 25 Mg Tablet PO 12.5 mg DAILY [facility] Administration Protocol Tiotropium [place] 1 puff 02/09/21 08:00 02/09/21 09:23 Tiotropium [place] 18 Mcg Cap.W.Dev INHALE 1 puff RDAILY [facility] Administration Home Medications Medication Instructions Recorded Confirmed Last Taken Type cholecalciferol (vitamin D3) 25 25 mcg PO DAILY 04/24/20 02/08/21 02/07/21 History mcg (1,000 unit) capsule potassium chloride 20 mEq 20 meq PO BID tab 04/24/20 02/08/21 02/07/21 History tablet,extended release(part/cryst) vitamin B complex 1 tab PO DAILY 04/24/20 02/08/21 02/07/21 History zinc acetate 50 mg (zinc) capsule 50 mg PO DAILY 04/24/20 02/08/21 02/07/21 History docusate sodium 100 mg capsule 100 mg PO DAILY 06/13/20 02/08/21 02/07/21 History multivitamin 1 tab PO DAILY 06/13/20 02/08/21 02/07/21 History blood sugar diagnostic #10 ea 07/31/20 02/08/21 Unknown History ferrous sulfate 325 mg (65 mg 325 mg PO DAILY 09/14/20 02/08/21 02/07/21 History iron) tablet empagliflozin 25 mg tablet 25 mg PO DAILY 11/14/20 02/08/21 02/07/21 History spironolactone 25 mg tablet 12.5 mg PO DAILY tab 12/22/20 02/08/21 02/08/21 History bumetanide 6 mg PO DAILY 02/08/21 02/08/21 02/08/21 History dulaglutide [Trulicity] 1.5 mg SUBCUT TH 02/08/21 02/08/21 02/08/21 History insulin aspart U-100 [Novolog 18 unit SUBCUT TIDAC 02/08/21 02/08/21 02/08/21 History Flexpen U-100 Insulin] Physical Exam Vital Signs: Vital Signs: Last Vital Signs Temp 98.2 F 02/09/21 07:46 Pulse 89 02/09/21 09:32 Resp 20 02/09/21 07:46 BP 100/54 L 02/09/21 08:29 Pulse Ox 94 02/09/21 07:47 Oxygen Flow Rate 3 02/08/21 14:21 Body Mass Index 39.4 GENERAL APPEARANCE: in no acute distress, pleasant. NECK: no carotid bruit, + jugular venous distention. SKIN: no suspicious lesions, warm and dry. HEART: no murmurs, irregular rate and rhythm. LUNGS: Few crackles at bases. ABDOMEN: soft, nontender. EXTREMITIES: 1-2+ edema PERIPHERAL PULSES: equal. NEUROLOGIC: No gross deficits, AAO X 3 Results Labs and Meds Result diagrams: 02/09/21 05:34 02/09/21 05:42 Lab results: Laboratory Results - last 24 hr 02/08/21 02/08/21 02/08/21 16:13 16:13 16:13 WBC 9.7 RBC 3.66 L Hgb 11.5 L Hct 35.3 L MCV 96.4 MCH 31.4 MCHC 32.6 RDW 14.9 Plt Count 226 MPV 8.0 L Immature Gran % (Auto) 0.5 H Neut % (Auto) 73.2 H Lymph % (Auto) 12.5 L Fountain % (Auto) 12.2 H Eos % (Auto) 1.4 Baso % (Auto) 0.2 Lymph # (Auto) 1.2 F[place] # (Auto) 1.2 Eos # (Auto) 0.1 Baso # (Auto) 0.0 Abs Immat Gran (auto) 0.05 H Absolute Neuts (auto) 7.1 Absolute Nucleated RBC 0.000 Nucleated RBC % (auto) 0.0 PT 17.1 H INR 1.5 H APTT 38.3 H Sodium 139 Potassium 4.0 Chloride 101 Carbon Dioxide 29 Anion Gap 13 BUN 40 H Creatinine 1.56 H Estim Creat Clear Calc 39.5 Estimated GFR 33 POC Glucose Random Glucose 128 H D Calcium 8.6 D Magnesium 2.6 Total Bilirubin 0.9 Direct Bilirubin 0.5 AST 30 ALT 15 Alkaline Phosphatase 119 H Troponin I High Sens B-Natriuretic Peptide Total Protein 6.4 L Albumin 3.4 L Urine Color Urine Appearance Urine pH Ur Specific [place] Urine Protein Urine Glucose (UA) Urine Ketones Urine Blood Urine Nitrite Ur Leukocyte Esterase Urine RBC Urine WBC Ur Squamous Epith Cells Urine Bacteria Urine Yeast COVID-19 ([facility]) COVID-19 Clin Com 02/08/21 02/08/21 02/08/21 16:13 16:13 16:55 WBC RBC Hgb Hct MCV MCH MCHC RDW Plt Count MPV Immature Gran % (Auto) Neut % (Auto) Lymph % (Auto) [place] % (Auto) Eos % (Auto) Baso % (Auto) Lymph # (Auto) [place] # (Auto) Eos # (Auto) Baso # (Auto) Abs Immat Gran (auto) Absolute Neuts (auto) Absolute Nucleated RBC Nucleated RBC % (auto) PT INR APTT Sodium Potassium Chloride Carbon Dioxide Anion Gap BUN Creatinine Estim Creat Clear Calc Estimated GFR POC Glucose Random Glucose Calcium Magnesium Total Bilirubin Direct Bilirubin AST ALT Alkaline Phosphatase Troponin I High Sens 12.1 B-Natriuretic Peptide 637 H Total Protein Albumin Urine Color YELLOW Urine Appearance CLEAR Urine pH 5.5 Ur Specific [place] 1.010 Urine Protein NEG Urine Glucose (UA) >=1000 H Urine Ketones NEG Urine Blood NEG Urine Nitrite NEG Ur Leukocyte Esterase NEG Urine RBC 0 Urine WBC 1-4 Ur Squamous Epith Cells 2+ Urine Bacteria NONE Urine Yeast TRACE COVID-19 ([facility]) Negative COVID-19 Clin Com See Note 02/08/21 02/08/21 02/08/21 19:31 22:24 22:54 WBC RBC Hgb Hct MCV MCH MCHC RDW Plt Count MPV Immature Gran % (Auto) Neut % (Auto) Lymph % (Auto) [place] % (Auto) Eos % (Auto) Baso % (Auto) Lymph # (Auto) [place] # (Auto) Eos # (Auto) Baso # (Auto) Abs Immat Gran (auto) Absolute Neuts (auto) Absolute Nucleated RBC Nucleated RBC % (auto) PT INR APTT Sodium Potassium Chloride Carbon Dioxide Anion Gap BUN Creatinine Estim Creat Clear Calc Estimated GFR POC Glucose 48 L* 78 Random Glucose Calcium Magnesium Total Bilirubin Direct Bilirubin AST ALT Alkaline Phosphatase Troponin I High Sens 13.9 B-Natriuretic Peptide Total Protein Albumin Urine Color Urine Appearance Urine pH Ur Specific [place] Urine Protein Urine Glucose (UA) Urine Ketones Urine Blood Urine Nitrite Ur Leukocyte Esterase Urine RBC Urine WBC Ur Squamous Epith Cells Urine Bacteria Urine Yeast COVID-19 ([facility]) COVID-19 Clin Com 02/09/21 02/09/21 02/09/21 05:34 05:34 05:42 WBC 7.9 RBC 3.55 L Hgb 11.4 L Hct 34.8 L MCV 98.0 MCH 32.1 MCHC 32.8 RDW 14.9 Plt Count 243 MPV 8.5 L Immature Gran % (Auto) Neut % (Auto) Lymph % (Auto) [place] % (Auto) Eos % (Auto) Baso % (Auto) Lymph # (Auto) [place] # (Auto) Eos # (Auto) Baso # (Auto) Abs Immat Gran (auto) Absolute Neuts (auto) Absolute Nucleated RBC 0.000 Nucleated RBC % (auto) 0.0 PT INR APTT Sodium 143 Potassium 4.1 Chloride 100 Carbon Dioxide 33 H Anion Gap 14 BUN 36 H Creatinine 1.44 H Estim Creat Clear Calc 43.7 Estimated GFR 36 POC Glucose Random Glucose 99 Calcium 8.7 Magnesium Total Bilirubin Direct Bilirubin AST ALT Alkaline Phosphatase Troponin I High Sens B-Natriuretic Peptide 845 H Total Protein Albumin Urine Color Urine Appearance Urine pH Ur Specific [place] Urine Protein Urine Glucose (UA) Urine Ketones Urine Blood Urine Nitrite Ur Leukocyte Esterase Urine RBC Urine WBC Ur Squamous Epith Cells Urine Bacteria Urine Yeast COVID-19 ([facility]) COVID-19 Clin Com 02/09/21 07:23 WBC RBC Hgb Hct MCV MCH MCHC RDW Plt Count MPV Immature Gran % (Auto) Neut % (Auto) Lymph % (Auto) [place] % (Auto) Eos % (Auto) Baso % (Auto) Lymph # (Auto) [place] # (Auto) Eos # (Auto) Baso # (Auto) Abs Immat Gran (auto) Absolute Neuts (auto) Absolute Nucleated RBC Nucleated RBC % (auto) PT INR APTT Sodium Potassium Chloride Carbon Dioxide Anion Gap BUN Creatinine Estim Creat Clear Calc Estimated GFR POC Glucose 78 Random Glucose Calcium Magnesium Total Bilirubin Direct Bilirubin AST ALT Alkaline Phosphatase Troponin I High Sens B-Natriuretic Peptide Total Protein Albumin Urine Color Urine Appearance Urine pH Ur Specific [place] Urine Protein Urine Glucose (UA) Urine Ketones Urine Blood Urine Nitrite Ur Leukocyte Esterase Urine RBC Urine WBC Ur Squamous Epith Cells Urine Bacteria Urine Yeast COVID-19 ([facility]) COVID-19 Clin Com Imaging Radiologist's impression: Impressions Chest X-Ray 02/08/21 15:33 IMPRESSION: Cardiomegaly with mild pulmonary vascular congestion. Assessment and Plan (1) Congestive heart failure (CHF): Status: Acute Pleasant 70-year-old female who is presenting for acute on chronic congestive heart failure. This is due to stopping the metolazone because she h ad sciatica and could not move and did not want to urinate frequently. Clinically she looks volume overloaded but compared to her previous admission she does not have significant volume overload. Agree with Bumex IV right now. I think we can reassess her tomorrow and potentially change her to p.o. Bumex if she is stable. I think we continue the same regimen as before with as needed metolazone for weight gain along with her Bumex. Continue beta-levi as before. Continue Xarelto for her atrial fibrillation. Thank you for allowing me to participate in the care of your patient. Please feel free to contact me if you have any questions. Procedures Date of Service Date of Service: 02/09/21
[2021-02-09 11:55] LABS: Glucose, Whole Blood 198 mg/dL (60-115)
[2021-02-09] MEDS: Insulin Lispro 100 UNIT/ML 3 ML VIAL SUBCUT ×2 (12:24→21:14)
--- NOTE | 2021-02-09 12:50 | HO.PM.IMPN ---
Subjective Subjective Date of Service: 02/09/21 Interval History: the patient was seen and evaluated this morning Laying in bed, feels little better today as she is -3 L overnight Lower extremity edema improving Denies any fever, chills or chest pain No reported other overnight events. Systemic review: No fever, chills or weakness No chest pain, palpitation but still have significant lower extremity edema No shortness of breath or coughing but dyspnea on exertion No abdominal pain, nausea or vomiting No urinary symptoms, Perez catheter in No any rash or wounds Physical Exam Vital Signs: Vital Signs: Last Vital Signs Temp 98.2 F 02/09/21 07:46 Pulse 89 02/09/21 09:32 Resp 20 02/09/21 07:46 BP 100/54 L 02/09/21 08:29 Pulse Ox 94 02/09/21 07:47 Oxygen Flow Rate 3 02/08/21 14:21 Body Mass Index 39.4 Const: Other: Constitutional : Alert, oriented, not in distress Neck : Normal inspection, Supple Cardiovascular : RRR, S1 S2, bilateral +3 pitting lower extremity edema Respiratory : Decrease bilateral air entry, bases bilateral crackles, wheezes or rhonchi Gastrointestinal: soft, lax, Normal bowel sounds, Non tender Skin : Warm/Dry, evidence of stasis dermatitis Neurological : Alert & oriented x3, No focal deficit Objective Data Current Medications Generic Name Dose Route Start Last Admin Trade Name Freq PRN Reason Stop Dose Admin Acetaminophen 650 mg 02/08/21 17:49 02/09/21 11:38 Acetaminophen 325 Mg Tablet PO 650 mg Q6H PRN Administration Pain, Mild (Pain Scale 1-3) Bumetanide 2 mg 02/09/21 08:00 02/09/21 08:29 Bumetanide 1 Mg/4 Ml Vial IVPUSH 2 mg BID@0800,1700 [facility] Administration Protocol Docusate Sodium 100 mg 02/09/21 09:00 02/09/21 08:28 Docusate Sodium 100 Mg Capsule PO 100 mg DAILY [facility] Administration Fluticasone/Vilanterol 1 puff 02/09/21 08:00 02/09/21 09:30 Fluticasone/Vilanterol 200/25 Blst.W.Dev INHALE Not Given RDAILY [facility] Gabapentin 300 mg 02/08/21 21:00 02/09/21 08:29 Gabapentin 300 Mg Capsule PO 300 mg TID [facility] Administration Insulin Glargine 30 unit 02/09/21 09:00 02/09/21 08:29 Insulin Glargine,Hum.Rec.Anlog 100 Unit/Ml 10 Ml Vial SUBCUT 30 unit DAILY [facility] Administration Insulin Human Lispro 0 unit 02/08/21 21:00 02/09/21 12:24 Insulin Lispro 100 Unit/Ml 3 Ml Vial SUBCUT 2 unit QIDACHS [facility] Administration Protocol Metolazone 2.5 mg 02/09/21 06:30 02/09/21 06:40 Metolazone 2.5 Mg Tablet PO 2.5 mg DAILY@0630 [facility] Administration Metoprolol Succinate 25 mg 02/08/21 21:00 02/09/21 08:28 Metoprolol Succinate Er 25 Mg Tab.Er.24h PO 25 mg BID [facility] Administration Protocol Ondansetron HCl 4 mg 02/08/21 17:49 Ondansetron Hcl 4 Mg/2 Ml Vial IVPUSH Q8H PRN Nausea and Vomiting Pharmacy Consult 1 each 02/08/21 15:32 Consult Rx Perform Med Rec MISCELLANE ONCE PRN Consult order Potassium Chloride 20 meq 02/08/21 21:00 02/09/21 08:28 Potassium Chloride Er 20 Meq Tab.Er.Prt PO 20 meq BID [facility] Administration Pravastatin Sodium 20 mg 02/08/21 21:00 02/08/21 23:44 Pravastatin Sodium 20 Mg Tablet PO 20 mg BEDTIME [facility] Administration Rivaroxaban 20 mg 02/08/21 21:00 02/08/21 23:43 Rivaroxaban 20 Mg Tablet PO 20 mg BEDTIME [facility] Administration Sodium Chloride 3 ml 02/09/21 00:00 02/09/21 08:33 0.9 % Sodium Chloride Flush 3 Ml Syringe IVFLUSH 3 ml QSHIFT [facility] Administration Spironolactone 12.5 mg 02/09/21 09:00 02/09/21 08:29 Spironolactone 25 Mg Tablet PO 12.5 mg DAILY [facility] Administration Protocol Tiotropium [place] 1 puff 02/09/21 08:00 02/09/21 09:23 Tiotropium [place] 18 Mcg Cap.W.Dev INHALE 1 puff RDAILY [facility] Administration Labs CBC & Chem 7: 02/09/21 05:34 02/09/21 05:42 Labs: Laboratory Results - last 24 hr 02/08/21 02/08/21 02/08/21 16:13 16:13 16:13 WBC 9.7 RBC 3.66 L Hgb 11.5 L Hct 35.3 L MCV 96.4 MCH 31.4 MCHC 32.6 RDW 14.9 Plt Count 226 MPV 8.0 L Immature Gran % (Auto) 0.5 H Neut % (Auto) 73.2 H Lymph % (Auto) 12.5 L [place] % (Auto) 12.2 H Eos % (Auto) 1.4 Baso % (Auto) 0.2 Lymph # (Auto) 1.2 [place] # (Auto) 1.2 Eos # (Auto) 0.1 Baso # (Auto) 0.0 Abs Immat Gran (auto) 0.05 H Absolute Neuts (auto) 7.1 Absolute Nucleated RBC 0.000 Nucleated RBC % (auto) 0.0 PT 17.1 H INR 1.5 H APTT 38.3 H Sodium 139 Potassium 4.0 Chloride 101 Carbon Dioxide 29 Anion Gap 13 BUN 40 H Creatinine 1.56 H Estim Creat Clear Calc 39.5 Estimated GFR 33 POC Glucose Random Glucose 128 H D Calcium 8.6 D Magnesium 2.6 Total Bilirubin 0.9 Direct Bilirubin 0.5 AST 30 ALT 15 Alkaline Phosphatase 119 H Troponin I High Sens B-Natriuretic Peptide Total Protein 6.4 L Albumin 3.4 L Urine Color Urine Appearance Urine pH Ur Specific [employer] Urine Protein Urine Glucose (UA) Urine Ketones Urine Blood Urine Nitrite Ur Leukocyte Esterase Urine RBC Urine WBC Ur Squamous Epith Cells Urine Bacteria Urine Yeast COVID-19 ([facility]) COVID-19 Clin Com 02/08/21 02/08/21 02/08/21 16:13 16:13 16:55 WBC RBC Hgb Hct MCV MCH MCHC RDW Plt Count MPV Immature Gran % (Auto) Neut % (Auto) Lymph % (Auto) [place] % (Auto) Eos % (Auto) Baso % (Auto) Lymph # (Auto) [place] # (Auto) Eos # (Auto) Baso # (Auto) Abs Immat Gran (auto) Absolute Neuts (auto) Absolute Nucleated RBC Nucleated RBC % (auto) PT INR APTT Sodium Potassium Chloride Carbon Dioxide Anion Gap BUN Creatinine Estim Creat Clear Calc Estimated GFR POC Glucose Random Glucose Calcium Magnesium Total Bilirubin Direct Bilirubin AST ALT Alkaline Phosphatase Troponin I High Sens 12.1 B-Natriuretic Peptide 637 H Total Protein Albumin Urine Color YELLOW Urine Appearance CLEAR Urine pH 5.5 Ur Specific [employer] 1.010 Urine Protein NEG Urine Glucose (UA) >=1000 H Urine Ketones NEG Urine Blood NEG Urine Nitrite NEG Ur Leukocyte Esterase NEG Urine RBC 0 Urine WBC 1-4 Ur Squamous Epith Cells 2+ Urine Bacteria NONE Urine Yeast TRACE COVID-19 ([facility]) Negative COVID-19 Clin Com See Note 02/08/21 02/08/21 02/08/21 19:31 22:24 22:54 WBC RBC Hgb Hct MCV MCH MCHC RDW Plt Count MPV Immature Gran % (Auto) Neut % (Auto) Lymph % (Auto) [place] % (Auto) Eos % (Auto) Baso % (Auto) Lymph # (Auto) [place] # (Auto) Eos # (Auto) Baso # (Auto) Abs Immat Gran (auto) Absolute Neuts (auto) Absolute Nucleated RBC Nucleated RBC % (auto) PT INR APTT Sodium Potassium Chloride Carbon Dioxide Anion Gap BUN Creatinine Estim Creat Clear Calc Estimated GFR POC Glucose 48 L* 78 Random Glucose Calcium Magnesium Total Bilirubin Direct Bilirubin AST ALT Alkaline Phosphatase Troponin I High Sens 13.9 B-Natriuretic Peptide Total Protein Albumin Urine Color Urine Appearance Urine pH Ur Specific [employer] Urine Protein Urine Glucose (UA) Urine Ketones Urine Blood Urine Nitrite Ur Leukocyte Esterase Urine RBC Urine WBC Ur Squamous Epith Cells Urine Bacteria Urine Yeast COVID-19 ([facility]) COVID-19 Clin Com 02/09/21 02/09/21 02/09/21 05:34 05:34 05:42 WBC 7.9 RBC 3.55 L Hgb 11.4 L Hct 34.8 L MCV 98.0 MCH 32.1 MCHC 32.8 RDW 14.9 Plt Count 243 MPV 8.5 L Immature Gran % (Auto) Neut % (Auto) Lymph % (Auto) [place] % (Auto) Eos % (Auto) Baso % (Auto) Lymph # (Auto) [place] # (Auto) Eos # (Auto) Baso # (Auto) Abs Immat Gran (auto) Absolute Neuts (auto) Absolute Nucleated RBC 0.000 Nucleated RBC % (auto) 0.0 PT INR APTT Sodium 143 Potassium 4.1 Chloride 100 Carbon Dioxide 33 H Anion Gap 14 BUN 36 H Creatinine 1.44 H Estim Creat Clear Calc 43.7 Estimated GFR 36 POC Glucose Random Glucose 99 Calcium 8.7 Magnesium Total Bilirubin Direct Bilirubin AST ALT Alkaline Phosphatase Troponin I High Sens B-Natriuretic Peptide 845 H Total Protein Albumin Urine Color Urine Appearance Urine pH Ur Specific [employer] Urine Protein Urine Glucose (UA) Urine Ketones Urine Blood Urine Nitrite Ur Leukocyte Esterase Urine RBC Urine WBC Ur Squamous Epith Cells Urine Bacteria Urine Yeast COVID-19 ([facility]) COVID-19 Buzz Referrals Com 02/09/21 02/09/21 07:23 10:57 WBC RBC Hgb Hct MCV MCH MCHC RDW Plt Count MPV Immature Gran % (Auto) Neut % (Auto) Lymph % (Auto) [place] % (Auto) Eos % (Auto) Baso % (Auto) Lymph # (Auto) [place] # (Auto) Eos # (Auto) Baso # (Auto) Abs Immat Gran (auto) Absolute Neuts (auto) Absolute Nucleated RBC Nucleated RBC % (auto) PT INR APTT Sodium Potassium Chloride Carbon Dioxide Anion Gap BUN Creatinine Estim Creat Clear Calc Estimated GFR POC Glucose 78 198 H Random Glucose Calcium Magnesium Total Bilirubin Direct Bilirubin AST ALT Alkaline Phosphatase Troponin I High Sens B-Natriuretic Peptide Total Protein Albumin Urine Color Urine Appearance Urine pH Ur Specific [employer] Urine Protein Urine Glucose (UA) Urine Ketones Urine Blood Urine Nitrite Ur Leukocyte Esterase Urine RBC Urine WBC Ur Squamous Epith Cells Urine Bacteria Urine Yeast COVID-19 ([facility]) COVID-19 Clin Com Quality Stroke Does the patient have a stroke diagnosis?: No VTE Prior VTE?: No VTE Risk Level:: Medical - low VTE Device Contraindication: Treatment Not Indicated VTE Drug Contraindication: N/A - Med Ordered Assessment and Plan (1) (HFpEF) heart failure with preserved ejection fraction: Status: Acute (2) Persistent atrial fibrillation: Status: Acute Assessment and Plan: A 70 years old lady with PMH with CHF diastolic, diabetes, CKD, HTN, AFib on Xarelto, on home oxygen 2 L among others who presented to the hospital with worsening bilateral lower extremities edema and weight gain over the last few weeks. Congestive heart failure BNP above 800 today CXR suggestive of fluid overload Keep Perez catheter for today Pending echo Continue daily metolazone Continue Bumex 2 mg IV b.i.d. Monitor intake and output, -3 L overnight Free water restriction Get cardiology evaluation in the morning Weight gain Lower extremity edema Secondary to CHF Treatment with diuresis Hypoglycemia 2/2 Diabetes type 2 Happened before she received her 1st dose of Lantus, from not eating in the emergency and receiving Lantus dose at home To give lower dose of Lantus 30 units SSI diabetic diet POC CKD stage 4 Creatinine stable around 1.4 Atrial fibrillation Continue metoprolol and Xarelto DVT PPX Xarelto
[2021-02-09 16:07] LABS: Glucose, Whole Blood 132 mg/dL (60-115)
[2021-02-09] MEDS: Cyclobenzaprine HCl 5 MG TABLET PO (16:10)
[2021-02-09] MEDS: Rivaroxaban 20 MG TABLET PO (20:14)
[2021-02-09] MEDS: Pravastatin Sodium 20 MG TABLET PO (20:15)
[2021-02-09 20:31] LABS: Glucose, Whole Blood 163 mg/dL (60-115)
[2021-02-09] MEDS: oxyCODONE HCl Immed Release 5 MG TABLET PO (23:02)
[2021-02-10] VITALS (7 sets, daily range): BP systolic 93–123; BP diastolic 59–69; PULSE 59–108; RESP 18; TEMP 36.3–37.1; O2SAT 93–96; BMI 37.8
[2021-02-10 05:08] LABS: Hemoglobin 11.9 g/dl (12.0-16.0); Mean Corpuscular HGB Conc 32.2 g/dl (31.0-35.0); Mean Corpuscular Hemoglobin 31.1 pg (27.0-33.0); Mean Corpuscular Volume 96.6 fL (80-98); Mean Platelet Volume 8.8 fL (9.4-12.3); Platelet Count 270 X10*3/uL (160-400); Red Blood Count 3.83 X10*6/uL (4.20-5.50); White Blood Count 8.7 X10*3/uL (4.8-10.8)
[2021-02-10 05:37] LABS: Anion Gap 13 (12-20); B Type Natriuretic Peptide 430 pg/mL (<100); Blood Urea Nitrogen 43 mg/dL (9-16); Calcium 9.3 mg/dL (8.4-10.2); Carbon Dioxide 39 mmol/L (22-29); Chloride 92 mmol/L (96-108); Creatinine Clr Calc Pharmacy 43.1; Estimated Glomerular Filt Rate 35; Glucose Random 118 mg/dL (60-115); Potassium 3.2 mmol/L (3.3-5.1); Sodium 141 mmol/L (135-145)
[2021-02-10] MEDS: metOLazone 2.5 MG TABLET PO (06:26)
[2021-02-10 07:33] LABS: Glucose, Whole Blood 107 mg/dL (60-115)
[2021-02-10] MEDS: Lidocaine 4 % Patch ADH..PATCH 1 PATCH TRANSDERMA (07:46)
[2021-02-10] MEDS: Acetaminophen 325 MG TABLET 650 MG PO ×2 (07:49→16:02)
[2021-02-10] MEDS: Docusate Sodium 100 MG CAPSULE PO (07:49)
[2021-02-10] MEDS: Potassium Chloride ER 20 MEQ TAB.ER.PRT PO ×2 (07:49→20:40)
[2021-02-10] MEDS: Metoprolol Succinate ER 25 MG TAB.ER.24H PO ×2 (07:49→20:41)
[2021-02-10] MEDS: Spironolactone 25 MG TABLET 12.5 MG PO (07:50)
[2021-02-10] MEDS: Cyclobenzaprine HCl 5 MG TABLET PO ×2 (07:50→16:02)
[2021-02-10] MEDS: Gabapentin 300 MG CAPSULE PO ×3 (07:51→20:41)
[2021-02-10] MEDS: Bumetanide 1 MG/4 ML VIAL 2 MG IVPUSH (07:51)
[2021-02-10] MEDS: 0.9 % Sodium Chloride Flush 3 ML SYRINGE IVFLUSH ×2 (07:54→15:59)
--- NOTE | 2021-02-10 08:55 | PM.PNCARD ---
Subjective Subjective Date of Service: 02/10/21 Interval history: Complaining that she is thirsty and wants to drink more. Review of Systems Review of Systems Edema is improving. No shortness of breath. Yes all other systems are reviewed and are negative Physical Exam Vital Signs: Last Vital Signs Temp 97.9 F 02/10/21 07:17 Pulse 108 H 02/10/21 07:37 Resp 18 02/10/21 07:17 BP 123/69 02/10/21 04:00 Pulse Ox 96 02/10/21 07:17 Oxygen Flow Rate 3 02/08/21 14:21 Body Mass Index 37.8 GENERAL APPEARANCE: in no acute distress, pleasant. NECK: no carotid bruit, no significant JVD. SKIN: no suspicious lesions, warm and dry. HEART: no murmurs, irregular rate and rhythm. LUNGS: Few crackles at bases. ABDOMEN: soft, nontender. EXTREMITIES: 1+ edema PERIPHERAL PULSES: equal. NEUROLOGIC: No gross deficits, AAO X 3 Results Labs and Meds Result diagrams: 02/10/21 04:01 02/10/21 04:01 Lab results: Laboratory Results - last 24 hr 02/09/21 02/09/21 02/09/21 10:57 16:01 20:27 WBC RBC Hgb Hct MCV MCH MCHC RDW Plt Count MPV Absolute Nucleated RBC Nucleated RBC % (auto) Sodium Potassium Chloride Carbon Dioxide Anion Gap BUN Creatinine Estim Creat Clear Calc Estimated GFR POC Glucose 198 H 132 H 163 H Random Glucose Calcium B-Natriuretic Peptide 02/10/21 02/10/21 02/10/21 04:01 04:01 04:01 WBC 8.7 RBC 3.83 L Hgb 11.9 L Hct 37.0 MCV 96.6 MCH 31.1 MCHC 32.2 RDW 15.0 Plt Count 270 MPV 8.8 L Absolute Nucleated RBC 0.000 Nucleated RBC % (auto) 0.0 Sodium 141 Potassium 3.2 L D Chloride 92 L Carbon Dioxide 39 H Anion Gap 13 BUN 43 H Creatinine 1.46 H Estim Creat Clear Calc 43.1 Estimated GFR 35 POC Glucose Random Glucose 118 H Calcium 9.3 D B-Natriuretic Peptide 430 H 02/10/21 07:25 WBC RBC Hgb Hct MCV MCH MCHC RDW Plt Count MPV Absolute Nucleated RBC Nucleated RBC % (auto) Sodium Potassium Chloride Carbon Dioxide Anion Gap BUN Creatinine Estim Creat Clear Calc Estimated GFR POC Glucose 107 Random Glucose Calcium B-Natriuretic Peptide Progress Note: A&P Assessment and plan (1) (HFpEF) heart failure with preserved ejection fraction: Status: Acute (2) Right heart failure (secondary to left heart failure): Status: Acute (3) Persistent atrial fibrillation: Status: Acute Assessment and Plan: 70-year-old female with acute on chronic congestive heart failure. Clinically she looks euvolemic. She can resume back to 3 mg twice a day of Bumex which is her home dose. I think she should be on twice a week metolazone along with this. Monitor electrolytes closely. Thank you for allowing me to participate in the care of your patient. Please feel free to contact me if you have any questions. Fall Risk Details Current Medications: Current Medications Generic Name Dose Route Start Last Admin Trade Name Freq PRN Reason Stop Dose Admin Acetaminophen 650 mg 02/08/21 17:49 02/10/21 07:49 Acetaminophen 325 Mg Tablet PO 650 mg Q6H PRN Administration Pain, Mild (Pain Scale 1-3) Bumetanide 6 mg 02/10/21 09:00 Bumetanide 1 Mg Tablet PO DAILY [facility] Protocol Cyclobenzaprine HCl 5 mg 02/09/21 15:28 02/10/21 07:50 Cyclobenzaprine Hcl 5 Mg Tablet PO 5 mg TID PRN Administration Muscle Spasm Docusate Sodium 100 mg 02/09/21 09:00 02/10/21 07:49 Docusate Sodium 100 Mg Capsule PO 100 mg DAILY [facility] Administration Fluticasone/Vilanterol 1 puff 02/09/21 08:00 02/10/21 07:37 Fluticasone/Vilanterol 200/25 Blst.W.Dev INHALE Not Given RDAILY [facility] Gabapentin 300 mg 02/08/21 21:00 02/10/21 07:51 Gabapentin 300 Mg Capsule PO 300 mg TID [facility] Administration Insulin Glargine 30 unit 02/09/21 09:00 02/09/21 08:29 Insulin Glargine,Hum.Rec.Anlog 100 Unit/Ml 10 Ml Vial SUBCUT 30 unit DAILY [facility] Administration Insulin Human Lispro 0 unit 02/08/21 21:00 02/10/21 07:38 Insulin Lispro 100 Unit/Ml 3 Ml Vial SUBCUT Not Given QIDACHS [facility] Protocol Lidocaine 1 patch 02/10/21 09:00 02/10/21 07:46 Lidocaine 4 % Patch Adh..Patch TRANSDERMA 1 patch DAILY [facility] Administration Protocol Metoprolol Succinate 25 mg 02/08/21 21:00 02/10/21 07:49 Metoprolol Succinate Er 25 Mg Tab.Er.24h PO 25 mg BID [facility] Administration Protocol Ondansetron HCl 4 mg 02/08/21 17:49 Ondansetron Hcl 4 Mg/2 Ml Vial IVPUSH Q8H PRN Nausea and Vomiting Pharmacy Consult 1 each 02/08/21 15:32 Consult Rx Perform Med Rec MISCELLANE ONCE PRN Consult order Potassium Chloride 20 meq 02/08/21 21:00 02/10/21 07:49 Potassium Chloride Er 20 Meq Tab.Er.Prt PO 20 meq BID [facility] Administration Potassium Chloride 40 meq 02/10/21 08:15 Potassium Chloride Packet 20 Meq Packet PO 02/10/21 12:16 Q4H [facility] Pravastatin Sodium 20 mg 02/08/21 21:00 02/09/21 20:15 Pravastatin Sodium 20 Mg Tablet PO 20 mg BEDTIME [facility] Administration Psyllium Hydrophilic Mucilloid 3.4 gm 02/09/21 15:30 02/09/21 16:08 Psyllium Seed 3.4 Gm Powd.Pack PO Not Given DAILY [facility] Rivaroxaban 20 mg 02/08/21 21:00 02/09/21 20:14 Rivaroxaban 20 Mg Tablet PO 20 mg BEDTIME [facility] Administration Sodium Chloride 3 ml 02/09/21 00:00 02/10/21 07:54 0.9 % Sodium Chloride Flush 3 Ml Syringe IVFLUSH 3 ml QSHIFT [facility] Administration Spironolactone 12.5 mg 02/09/21 09:00 02/10/21 07:50 Spironolactone 25 Mg Tablet PO 12.5 mg DAILY [facility] Administration Protocol Tiotropium [place] 1 puff 02/09/21 08:00 02/10/21 07:36 Tiotropium [place] 18 Mcg Cap.W.Dev INHALE 1 puff RDAILY [facility] Administration Time Spent With Patient Time: Total time spent is greater than 50% in coordination of care (as documented) at patient's floor/unit and/or counseling patient: Time with patient: 15 - 24 minutes Progress Note: Quality Stroke Does the patient have a stroke diagnosis?: No Procedures Date of Service Date of Service: 02/10/21
[2021-02-10] MEDS: Potassium Chloride Packet 20 MEQ PACKET 40 MEQ PO ×2 (09:17→11:41)
[2021-02-10] MEDS: Insulin Glargine,Hum.rec.anlog 100 UNIT/ML 10 ML VIAL 30 UNIT SUBCUT (09:20)
[2021-02-10] MEDS: Insulin Lispro 100 UNIT/ML 3 ML VIAL SUBCUT ×3 (11:37→20:49)
[2021-02-10 11:38] LABS: Glucose, Whole Blood 230 mg/dL (60-115)
--- NOTE | 2021-02-10 14:26 | HO.PM.IMPN ---
Subjective Subjective Date of Service: 02/10/21 Interval History: the patient was seen and evaluated this morning Laying in bed, feels better today as she is -5 L overnight Lower extremity edema improved significantly Denies any fever, chills or chest pain No reported other overnight events. Systemic review: No fever, chills or weakness No chest pain, palpitation but still have significant lower extremity edema No shortness of breath or coughing but she is finding difficulties moving around because of sciatica No abdominal pain, nausea or vomiting No urinary symptoms, Perez catheter in No any rash or wounds Physical Exam Vital Signs: Vital Signs: Last Vital Signs Temp 97.6 F 02/10/21 10:52 Pulse 59 02/10/21 10:52 Resp 18 02/10/21 10:52 BP 108/68 02/10/21 10:52 Pulse Ox 95 02/10/21 10:52 Oxygen Flow Rate 3 02/08/21 14:21 Body Mass Index 37.8 Const: Other: Constitutional : Alert, oriented, not in distress Neck : Normal inspection, Supple Cardiovascular : RRR, S1 S2, bilateral +1 pitting lower extremity edema Respiratory : Decrease bilateral air entry, no crackles, wheezes or rhonchi Gastrointestinal: soft, lax, Normal bowel sounds, Non tender Skin : Warm/Dry Neurological : Alert & oriented x3, No focal deficit Objective Data Current Medications Generic Name Dose Route Start Last Admin Trade Name Freq PRN Reason Stop Dose Admin Acetaminophen 650 mg 02/08/21 17:49 02/10/21 07:49 Acetaminophen 325 Mg Tablet PO 650 mg Q6H PRN Administration Pain, Mild (Pain Scale 1-3) Bumetanide 3 mg 02/10/21 17:00 Bumetanide 1 Mg Tablet PO BID@0800,1700 [facility] Protocol Cyclobenzaprine HCl 5 mg 02/09/21 15:28 02/10/21 07:50 Cyclobenzaprine Hcl 5 Mg Tablet PO 5 mg TID PRN Administration Muscle Spasm Docusate Sodium 100 mg 02/09/21 09:00 02/10/21 07:49 Docusate Sodium 100 Mg Capsule PO 100 mg DAILY [facility] Administration Fluticasone/Vilanterol 1 puff 02/09/21 08:00 02/10/21 07:37 Fluticasone/Vilanterol 200/25 Blst.W.Dev INHALE Not Given RDAILY [facility] Gabapentin 300 mg 02/08/21 21:00 02/10/21 07:51 Gabapentin 300 Mg Capsule PO 300 mg TID [facility] Administration Insulin Glargine 30 unit 02/09/21 09:00 02/10/21 09:20 Insulin Glargine,Hum.Rec.Anlog 100 Unit/Ml 10 Ml Vial SUBCUT 30 unit DAILY [facility] Administration Insulin Human Lispro 0 unit 02/08/21 21:00 02/10/21 11:37 Insulin Lispro 100 Unit/Ml 3 Ml Vial SUBCUT 4 unit QIDACHS [facility] Administration Protocol Lidocaine 1 patch 02/10/21 09:00 02/10/21 07:46 Lidocaine 4 % Patch Adh..Patch TRANSDERMA 1 patch DAILY [facility] Administration Protocol Metoprolol Succinate 25 mg 02/08/21 21:00 02/10/21 07:49 Metoprolol Succinate Er 25 Mg Tab.Er.24h PO 25 mg BID [facility] Administration Protocol Ondansetron HCl 4 mg 02/08/21 17:49 Ondansetron Hcl 4 Mg/2 Ml Vial IVPUSH Q8H PRN Nausea and Vomiting Pharmacy Consult 1 each 02/08/21 15:32 Consult Rx Perform Med Rec MISCELLANE ONCE PRN Consult order Potassium Chloride 20 meq 02/08/21 21:00 02/10/21 07:49 Potassium Chloride Er 20 Meq Tab.Er.Prt PO 20 meq BID [facility] Administration Pravastatin Sodium 20 mg 02/08/21 21:00 02/09/21 20:15 Pravastatin Sodium 20 Mg Tablet PO 20 mg BEDTIME [facility] Administration Psyllium Hydrophilic Mucilloid 3.4 gm 02/09/21 15:30 02/10/21 10:44 Psyllium Seed 3.4 Gm Powd.Pack PO 3.4 gm DAILY [facility] Administration Rivaroxaban 20 mg 02/08/21 21:00 02/09/21 20:14 Rivaroxaban 20 Mg Tablet PO 20 mg BEDTIME [facility] Administration Sodium Chloride 3 ml 02/09/21 00:00 02/10/21 07:54 0.9 % Sodium Chloride Flush 3 Ml Syringe IVFLUSH 3 ml QSHIFT [facility] Administration Spironolactone 12.5 mg 02/09/21 09:00 02/10/21 07:50 Spironolactone 25 Mg Tablet PO 12.5 mg DAILY [facility] Administration Protocol Tiotropium [place] 1 puff 02/09/21 08:00 02/10/21 07:36 Tiotropium [place] 18 Mcg Cap.W.Dev INHALE 1 puff RDAILY [facility] Administration Labs CBC & Chem 7: 02/10/21 04:01 02/10/21 04:01 Labs: Laboratory Results - last 24 hr 02/09/21 02/09/21 02/10/21 16:01 20:27 04:01 WBC 8.7 RBC 3.83 L Hgb 11.9 L Hct 37.0 MCV 96.6 MCH 31.1 MCHC 32.2 RDW 15.0 Plt Count 270 MPV 8.8 L Absolute Nucleated RBC 0.000 Nucleated RBC % (auto) 0.0 Sodium Potassium Chloride Carbon Dioxide Anion Gap BUN Creatinine Estim Creat Clear Calc Estimated GFR POC Glucose 132 H 163 H Random Glucose Calcium B-Natriuretic Peptide 02/10/21 02/10/21 02/10/21 04:01 04:01 07:25 WBC RBC Hgb Hct MCV MCH MCHC RDW Plt Count MPV Absolute Nucleated RBC Nucleated RBC % (auto) Sodium 141 Potassium 3.2 L D Chloride 92 L Carbon Dioxide 39 H Anion Gap 13 BUN 43 H Creatinine 1.46 H Estim Creat Clear Calc 43.1 Estimated GFR 35 POC Glucose 107 Random Glucose 118 H Calcium 9.3 D B-Natriuretic Peptide 430 H 02/10/21 11:28 WBC RBC Hgb Hct MCV MCH MCHC RDW Plt Count MPV Absolute Nucleated RBC Nucleated RBC % (auto) Sodium Potassium Chloride Carbon Dioxide Anion Gap BUN Creatinine Estim Creat Clear Calc Estimated GFR POC Glucose 230 H Random Glucose Calcium B-Natriuretic Peptide Quality Stroke Does the patient have a stroke diagnosis?: No VTE Prior VTE?: No VTE Risk Level:: Medical - low VTE Device Contraindication: Treatment Not Indicated VTE Drug Contraindication: N/A - Med Ordered Assessment and Plan (1) (HFpEF) heart failure with preserved ejection fraction: Status: Acute (2) Persistent atrial fibrillation: Status: Acute Assessment and Plan: A 70 years old lady with PMH with CHF diastolic, diabetes, CKD, HTN, AFib on Xarelto, on home oxygen 2 L among others who presented to the hospital with worsening bilateral lower extremities edema and weight gain over the last few weeks. Congestive heart failure BNP above 800 today CXR suggestive of fluid overload Keep Perez catheter for today and discontinue tomorrow morning Echo showed normal systolic function with bilateral atrial enlargement and CV tricuspid regurgitation with moderate pulmonary hypertension Twice weekly metolazone Change Bumex to 3 mg p.o. b.i.d. Monitor intake and output, -5 L overnight Free water restriction Cardiology input appreciated Hypokalemia Potassium 3.2 To give supplement and monitor BMP Diabetes type 2 Lantus 30 units SSI diabetic diet CKD stage 4 Creatinine stable around 1.4 Atrial fibrillation Continue metoprolol and Xarelto DVT PPX Xarelto
[2021-02-10] MEDS: Bumetanide 1 MG TABLET 3 MG PO (15:59)
[2021-02-10 16:13] LABS: Glucose, Whole Blood 206 mg/dL (60-115)
[2021-02-10 18:37] LABS: Glucose, Whole Blood 201 mg/dL (60-115)
[2021-02-10 20:11] LABS: Glucose, Whole Blood 201 mg/dL (60-115)
[2021-02-10] MEDS: Pravastatin Sodium 20 MG TABLET PO (20:40)
[2021-02-10] MEDS: Rivaroxaban 20 MG TABLET PO (20:40)
[2021-02-11] VITALS (9 sets, daily range): BP systolic 93–108; BP diastolic 55–70; PULSE 87–121; RESP 18–20; TEMP 36.6–37.2; O2SAT 92–97; BMI 35.0
[2021-02-11] MEDS: Cyclobenzaprine HCl 5 MG TABLET PO ×2 (00:22→15:29)
[2021-02-11] MEDS: 0.9 % Sodium Chloride Flush 3 ML SYRINGE IVFLUSH ×3 (00:23→23:59)
[2021-02-11 05:46] LABS: B Type Natriuretic Peptide 396 pg/mL (<100)
[2021-02-11 06:00] LABS: Anion Gap 14 (12-20); Blood Urea Nitrogen 49 mg/dL (9-16); Calcium 9.3 mg/dL (8.4-10.2); Carbon Dioxide 41 mmol/L (22-29); Chloride 92 mmol/L (96-108); Creatinine Clr Calc Pharmacy 39.9; Estimated Glomerular Filt Rate 33; Glucose Random 124 mg/dL (60-115); Potassium 2.7 mmol/L (3.3-5.1); Sodium 144 mmol/L (135-145)
[2021-02-11 07:29] LABS: Glucose, Whole Blood 126 mg/dL (60-115)
[2021-02-11] MEDS: Bumetanide 1 MG TABLET 3 MG PO ×2 (08:40→16:19)
[2021-02-11] MEDS: Potassium Chloride Packet 20 MEQ PACKET 40 MEQ PO ×3 (08:48→15:16)
[2021-02-11] MEDS: Gabapentin 300 MG CAPSULE PO ×3 (08:49→20:18)
[2021-02-11] MEDS: Docusate Sodium 100 MG CAPSULE PO (08:49)
[2021-02-11] MEDS: Potassium Chloride ER 20 MEQ TAB.ER.PRT PO ×2 (08:49→20:18)
[2021-02-11] MEDS: Insulin Glargine,Hum.rec.anlog 100 UNIT/ML 10 ML VIAL 30 UNIT SUBCUT (08:50)
[2021-02-11] MEDS: Lidocaine 4 % Patch ADH..PATCH 1 PATCH TRANSDERMA (08:50)
[2021-02-11] MEDS: Spironolactone 25 MG TABLET 12.5 MG PO (08:51)
[2021-02-11] MEDS: Metoprolol Succinate ER 25 MG TAB.ER.24H PO ×2 (08:52→20:18)
[2021-02-11 11:29] LABS: Glucose, Whole Blood 214 mg/dL (60-115)
[2021-02-11] MEDS: Insulin Lispro 100 UNIT/ML 3 ML VIAL SUBCUT ×3 (11:46→20:25)
--- NOTE | 2021-02-11 12:32 | PM.PNCARD ---
Subjective Subjective Date of Service: 02/11/21 Interval history: Feeling better. Still has some back issues ongoing. Clinically volume it. On oral diuretics. Physical Exam Vital Signs: Last Vital Signs Temp 98 F 02/11/21 11:25 Pulse 87 02/11/21 11:25 Resp 19 02/11/21 11:25 BP 102/64 02/11/21 11:25 Pulse Ox 96 02/11/21 11:25 Oxygen Flow Rate 3 02/08/21 14:21 Body Mass Index 35.0 GENERAL APPEARANCE: in no acute distress, pleasant. NECK: no carotid bruit, no significant JVD. SKIN: no suspicious lesions, warm and dry. HEART: no murmurs, irregular rate and rhythm. LUNGS: Few crackles at bases. ABDOMEN: soft, nontender. EXTREMITIES: Mild edema. PERIPHERAL PULSES: equal. NEUROLOGIC: No gross deficits, AAO X 3 Results Labs and Meds Result diagrams: 02/10/21 04:01 02/11/21 04:11 Lab results: Laboratory Results - last 24 hr 02/10/21 02/10/21 02/10/21 16:05 18:21 19:58 Sodium Potassium Chloride Carbon Dioxide Anion Gap BUN Creatinine Estim Creat Clear Calc Estimated GFR POC Glucose 206 H 201 H 201 H Random Glucose Calcium B-Natriuretic Peptide 02/11/21 02/11/21 02/11/21 04:11 04:11 07:25 Sodium 144 Potassium 2.7 L Chloride 92 L Carbon Dioxide 41 H* Anion Gap 14 BUN 49 H Creatinine 1.54 H Estim Creat Clear Calc 39.9 Estimated GFR 33 POC Glucose 126 H Random Glucose 124 H Calcium 9.3 B-Natriuretic Peptide 396 H 02/11/21 11:25 Sodium Potassium Chloride Carbon Dioxide Anion Gap BUN Creatinine Estim Creat Clear Calc Estimated GFR POC Glucose 214 H Random Glucose Calcium B-Natriuretic Peptide Progress Note: A&P Assessment and plan (1) (HFpEF) heart failure with preserved ejection fraction: Status: Acute (2) Right heart failure (secondary to left heart failure): Status: Acute (3) Persistent atrial fibrillation: Status: Acute Assessment and Plan: 70-year-old female with heart failure preserved ejection fraction and right-sided failure more than left-sided failure. Has been diuresed with IV Bumex and is on home dose of Bumex 3 mg twice a day. Has hypokalemia and elevated bicarb levels and has been started on acetazolamide by medicine team. I think she should get potassium chloride because that will improve her potassium and bicarb levels. Overall she looks much better. Her main issues now are sciatica. I think she can get Bumex and up to twice a week metolazone. Thank you for allowing me to participate in the care of your patient. Please feel free to contact me if you have any questions. Fall Risk Details Current Medications: Current Medications Generic Name Dose Route Start Last Admin Trade Name Freq PRN Reason Stop Dose Admin Acetaminophen 650 mg 02/08/21 17:49 02/10/21 16:02 Acetaminophen 325 Mg Tablet PO 650 mg Q6H PRN Administration Pain, Mild (Pain Scale 1-3) Acetazolamide 500 mg 02/11/21 09:00 02/11/21 10:23 Acetazolamide 250 Mg Tablet PO Not Given BID SHILPA Bumetanide 3 mg 02/10/21 17:00 02/11/21 08:40 Bumetanide 1 Mg Tablet PO 3 mg BID@0800,1700 [facility] Administration Protocol Cyclobenzaprine HCl 5 mg 02/09/21 15:28 02/11/21 00:22 Cyclobenzaprine Hcl 5 Mg Tablet PO 5 mg TID PRN Administration Muscle Spasm Docusate Sodium 100 mg 02/09/21 09:00 02/11/21 08:49 Docusate Sodium 100 Mg Capsule PO 100 mg DAILY SHILPA Administration Gabapentin 300 mg 02/08/21 21:00 02/11/21 08:49 Gabapentin 300 Mg Capsule PO 300 mg TID SHILPA Administration Insulin Glargine 30 unit 02/09/21 09:00 02/11/21 08:50 Insulin Glargine,Hum.Rec.Anlog 100 Unit/Ml 10 Ml Vial SUBCUT 30 unit DAILY SHILPA Administration Insulin Human Lispro 0 unit 02/08/21 21:00 02/11/21 11:46 Insulin Lispro 100 Unit/Ml 3 Ml Vial SUBCUT 4 unit QIDACHS [facility] Administration Protocol Lidocaine 1 patch 02/10/21 09:00 02/11/21 08:50 Lidocaine 4 % Patch Adh..Patch TRANSDERMA 1 patch DAILY SHILPA Administration Protocol Metoprolol Succinate 25 mg 02/08/21 21:00 02/11/21 08:52 Metoprolol Succinate Er 25 Mg Tab.Er.24h PO 25 mg BID SHILPA Administration Protocol Ondansetron HCl 4 mg 02/08/21 17:49 Ondansetron Hcl 4 Mg/2 Ml Vial IVPUSH Q8H PRN Nausea and Vomiting Pharmacy Consult 1 each 02/08/21 15:32 Consult Rx Perform Med Rec MISCELLANE ONCE PRN Consult order Potassium Chloride 20 meq 02/08/21 21:00 02/11/21 08:49 Potassium Chloride Er 20 Meq Tab.Er.Prt PO 20 meq BID SHILPA Administration Potassium Chloride 40 meq 02/11/21 07:00 02/11/21 11:47 Potassium Chloride Packet 20 Meq Packet PO 02/11/21 15:01 40 meq Q4H SHILPA Administration Pravastatin Sodium 20 mg 02/08/21 21:00 02/10/21 20:40 Pravastatin Sodium 20 Mg Tablet PO 20 mg BEDTIME SHILPA Administration Psyllium Hydrophilic Mucilloid 3.4 gm 02/09/21 15:30 02/11/21 10:13 Psyllium Seed 3.4 Gm Powd.Pack PO 3.4 gm DAILY SHILPA Administration Rivaroxaban 20 mg 02/08/21 21:00 02/10/21 20:40 Rivaroxaban 20 Mg Tablet PO 20 mg BEDTIME SHILPA Administration Sodium Chloride 3 ml 02/09/21 00:00 02/11/21 08:47 0.9 % Sodium Chloride Flush 3 Ml Syringe IVFLUSH 3 ml QSHIFT SHILPA Administration Spironolactone 12.5 mg 02/09/21 09:00 02/11/21 08:51 Spironolactone 25 Mg Tablet PO 12.5 mg DAILY SHILPA Administration Protocol Tiotropium [place] 1 puff 02/09/21 08:00 02/11/21 07:48 Tiotropium [place] 18 Mcg Cap.W.Dev INHALE 1 puff RDAILY SHILPA Administration Time Spent With Patient Time: Total time spent is greater than 50% in coordination of care (as documented) at patient's floor/unit and/or counseling patient: Time with patient: 15 - 24 minutes Progress Note: Quality Stroke Does the patient have a stroke diagnosis?: No Procedures Date of Service Date of Service: 02/11/21
--- NOTE | 2021-02-11 13:17 | P.PNIM_ITS ---
Subjective Subjective Date of Service: 02/11/21 Interval History: the patient was seen and evaluated this morning Laying in bed, feels better today as she is -4 L overnight Lower extremity edema improved significantly Denies any fever, chills or chest pain No reported other overnight events. Systemic review: No fever, chills or weakness No chest pain, palpitation but still have significant lower extremity edema No shortness of breath or coughing she is finding difficulties moving around because of sciatica No abdominal pain, nausea or vomiting No urinary symptoms, Perez catheter in No any rash or wounds Physical Exam Vital Signs: Vital Signs: Last Vital Signs Temp 98 F 02/11/21 11:25 Pulse 87 02/11/21 11:25 Resp 19 02/11/21 11:25 BP 102/64 02/11/21 11:25 Pulse Ox 96 02/11/21 11:25 Oxygen Flow Rate 3 02/08/21 14:21 Body Mass Index 35.0 Const: Other: Constitutional : Alert, oriented, not in distress Neck : Normal inspection, Supple Cardiovascular : RRR, S1 S2, bilateral trace pitting lower extremity edema Respiratory : Decrease bilateral air entry, no crackles, wheezes or rhonchi Gastrointestinal: soft, lax, Normal bowel sounds, Non tender Skin : Warm/Dry Neurological : Alert & oriented x3, No focal deficit Objective Data Current Medications Generic Name Dose Route Start Last Admin Trade Name Eyadq PRN Reason Stop Dose Admin Acetaminophen 650 mg 02/08/21 17:49 02/10/21 16:02 Acetaminophen 325 Mg Tablet PO 650 mg Q6H PRN Administration Pain, Mild (Pain Scale 1-3) Acetazolamide 500 mg 02/11/21 09:00 02/11/21 10:23 Acetazolamide 250 Mg Tablet PO Not Given BID SHILPA Bumetanide 3 mg 02/10/21 17:00 02/11/21 08:40 Bumetanide 1 Mg Tablet PO 3 mg BID@0800,1700 SHILPA Administration Protocol Cyclobenzaprine HCl 5 mg 02/09/21 15:28 02/11/21 00:22 Cyclobenzaprine Hcl 5 Mg Tablet PO 5 mg TID PRN Administration Muscle Spasm Docusate Sodium 100 mg 02/09/21 09:00 02/11/21 08:49 Docusate Sodium 100 Mg Capsule PO 100 mg DAILY SHILPA Administration Gabapentin 300 mg 02/08/21 21:00 02/11/21 08:49 Gabapentin 300 Mg Capsule PO 300 mg TID SHILPA Administration Insulin Glargine 30 unit 02/09/21 09:00 02/11/21 08:50 Insulin Glargine,Hum.Rec.Anlog 100 Unit/Ml 10 Ml Vial SUBCUT 30 unit DAILY SHILPA Administration Insulin Human Lispro 0 unit 02/08/21 21:00 02/11/21 11:46 Insulin Lispro 100 Unit/Ml 3 Ml Vial SUBCUT 4 unit QIDACHS SHILPA Administration Protocol Lidocaine 1 patch 02/10/21 09:00 02/11/21 08:50 Lidocaine 4 % Patch Adh..Patch TRANSDERMA 1 patch DAILY SHILPA Administration Protocol Metoprolol Succinate 25 mg 02/08/21 21:00 02/11/21 08:52 Metoprolol Succinate Er 25 Mg Tab.Er.24h PO 25 mg BID SHILPA Administration Protocol Ondansetron HCl 4 mg 02/08/21 17:49 Ondansetron Hcl 4 Mg/2 Ml Vial IVPUSH Q8H PRN Nausea and Vomiting Pharmacy Consult 1 each 02/08/21 15:32 Consult Rx Perform Med Rec MISCELLANE ONCE PRN Consult order Potassium Chloride 20 meq 02/08/21 21:00 02/11/21 08:49 Potassium Chloride Er 20 Meq Tab.Er.Prt PO 20 meq BID SHILPA Administration Potassium Chloride 40 meq 02/11/21 07:00 02/11/21 11:47 Potassium Chloride Packet 20 Meq Packet PO 02/11/21 15:01 40 meq Q4H SHILPA Administration Pravastatin Sodium 20 mg 02/08/21 21:00 02/10/21 20:40 Pravastatin Sodium 20 Mg Tablet PO 20 mg BEDTIME SHILPA Administration Psyllium Hydrophilic Mucilloid 3.4 gm 02/09/21 15:30 02/11/21 10:13 Psyllium Seed 3.4 Gm Powd.Pack PO 3.4 gm DAILY SHILPA Administration Rivaroxaban 20 mg 02/08/21 21:00 02/10/21 20:40 Rivaroxaban 20 Mg Tablet PO 20 mg BEDTIME SHILPA Administration Sodium Chloride 3 ml 02/09/21 00:00 02/11/21 08:47 0.9 % Sodium Chloride Flush 3 Ml Syringe IVFLUSH 3 ml QSHIFT SHILPA Administration Spironolactone 12.5 mg 02/09/21 09:00 02/11/21 08:51 Spironolactone 25 Mg Tablet PO 12.5 mg DAILY [facility] Administration Protocol Tiotropium [place] 1 puff 02/09/21 08:00 02/11/21 07:48 Tiotropium [place] 18 Mcg Cap.W.Dev INHALE 1 puff RDAILY [facility] Administration Labs CBC & Chem 7: 02/10/21 04:01 02/11/21 04:11 Labs: Laboratory Results - last 24 hr 02/10/21 02/10/21 02/10/21 16:05 18:21 19:58 Sodium Potassium Chloride Carbon Dioxide Anion Gap BUN Creatinine Estim Creat Clear Calc Estimated GFR POC Glucose 206 H 201 H 201 H Random Glucose Calcium B-Natriuretic Peptide 02/11/21 02/11/21 02/11/21 04:11 04:11 07:25 Sodium 144 Potassium 2.7 L Chloride 92 L Carbon Dioxide 41 H* Anion Gap 14 BUN 49 H Creatinine 1.54 H Estim Creat Clear Calc 39.9 Estimated GFR 33 POC Glucose 126 H Random Glucose 124 H Calcium 9.3 B-Natriuretic Peptide 396 H 02/11/21 11:25 Sodium Potassium Chloride Carbon Dioxide Anion Gap BUN Creatinine Estim Creat Clear Calc Estimated GFR POC Glucose 214 H Random Glucose Calcium B-Natriuretic Peptide Quality Stroke Does the patient have a stroke diagnosis?: No VTE Prior VTE?: No VTE Risk Level:: Medical - low VTE Device Contraindication: Treatment Not Indicated VTE Drug Contraindication: N/A - Med Ordered Assessment and Plan (1) (HFpEF) heart failure with preserved ejection fraction: Status: Acute (2) Persistent atrial fibrillation: Status: Acute Assessment and Plan: A 70 years old lady with PMH with CHF diastolic, diabetes, CKD, HTN, AFib on Xarelto, on home oxygen 2 L among others who presented to the hospital with worsening bilateral lower extremities edema and weight gain over the last few weeks. Congestive heart failure BNP around 400 today To discontinue Perez catheter, patient resistant to the idea Echo showed normal systolic function with bilateral atrial enlargement and CV tricuspid regurgitation with moderate pulmonary hypertension Twice weekly metolazone Continue Bumex to 3 mg p.o. b.i.d. Monitor intake and output, -4 L overnight Free water restriction Cardiology input appreciated Hypokalemia Potassium 2.7 To give supplement and monitor BMP Diabetes type 2 Lantus 30 units SSI diabetic diet CKD stage 4 Creatinine stable around 1.4 Atrial fibrillation Continue metoprolol and Xarelto DVT PPX Xarelto
[2021-02-11] MEDS: Potassium Chloride/H20 10 MEQ/100 ML PIGGYBACK 100 MEQ IV ×2 (14:07→15:15)
[2021-02-11 16:14] LABS: Glucose, Whole Blood 224 mg/dL (60-115)
[2021-02-11] MEDS: Acetaminophen 325 MG TABLET 650 MG PO (19:00)
[2021-02-11 20:12] LABS: Glucose, Whole Blood 216 mg/dL (60-115)
[2021-02-11] MEDS: acetaZOLAMIDE 250 MG TABLET 500 MG PO (20:18)
[2021-02-11] MEDS: Rivaroxaban 20 MG TABLET PO (20:18)
[2021-02-11] MEDS: Pravastatin Sodium 20 MG TABLET PO (20:18)
[2021-02-12] VITALS: BP 98/61; PULSE 85; RESP 20; TEMP 36.3; O2SAT 95
[2021-02-12 04:00] VITALS: BP 91/51; PULSE 81; RESP 20; TEMP 36.4; O2SAT 94
[2021-02-12 06:00] VITALS: BMI 34.6
[2021-02-12] MEDS: Cyclobenzaprine HCl 5 MG TABLET PO ×2 (06:43→15:13)
[2021-02-12 07:20] LABS: Glucose, Whole Blood 135 mg/dL (60-115)
[2021-02-12 07:42] LABS: Blood Urea Nitrogen 56 mg/dL (9-16); Calcium 9.2 mg/dL (8.4-10.2); Creatinine Clr Calc Pharmacy 35.4; Estimated Glomerular Filt Rate 31; Glucose Random 137 mg/dL (60-115)
[2021-02-12 07:52] VITALS: BP 99/64; PULSE 85; RESP 18; TEMP 36.6; O2SAT 96
[2021-02-12] MEDS: Docusate Sodium 100 MG CAPSULE PO (08:14)
[2021-02-12] MEDS: acetaZOLAMIDE 250 MG TABLET 500 MG PO (08:14)
[2021-02-12] MEDS: Gabapentin 300 MG CAPSULE PO ×2 (08:15→15:10)
[2021-02-12 08:16] LABS: Anion Gap 12 (12-20); Carbon Dioxide 41 mmol/L (22-29); Chloride 90 mmol/L (96-108); Potassium 3.1 mmol/L (3.3-5.1); Sodium 140 mmol/L (135-145)
[2021-02-12] MEDS: Lidocaine 4 % Patch ADH..PATCH 1 PATCH TRANSDERMA (08:17)
[2021-02-12] MEDS: Insulin Glargine,Hum.rec.anlog 100 UNIT/ML 10 ML VIAL 30 UNIT SUBCUT (08:18)
[2021-02-12] MEDS: 0.9 % Sodium Chloride Flush 3 ML SYRINGE IVFLUSH (08:19)
[2021-02-12 09:10] VITALS: BP 99/64; PULSE 85; O2SAT 96
[2021-02-12] MEDS: Potassium Chloride Packet 20 MEQ PACKET 40 MEQ PO (09:31)
[2021-02-12] MEDS: Metoprolol Succinate ER 25 MG TAB.ER.24H PO (09:32)
[2021-02-12 11:20] LABS: Glucose, Whole Blood 266 mg/dL (60-115)
[2021-02-12 11:34] VITALS: BP 100/49; PULSE 89; RESP 18; TEMP 36.4; O2SAT 95
[2021-02-12] MEDS: Insulin Lispro 100 UNIT/ML 3 ML VIAL SUBCUT (11:50)
--- NOTE | 2021-02-12 12:34 | PM.DS ---
DS: Providers Provider Date of Service: 02/12/21 Date of admission: 02/08/21 17:50 Primary care physician: Teri Max MD Consults: 02/09/21 08:17 Consult to Cardiology Routine Consulting Provider: Dave Lau Reason for consultation: Referred by dr Duran for CHF exacerbation. DS: Diagnosis Discharge Diagnosis (1) (HFpEF) heart failure with preserved ejection fraction: Status: Acute (2) Persistent atrial fibrillation: Status: Acute (3) Congestive heart failure (CHF): Status: Acute (4) Hypokalemia: Status: Acute DS: Medications Discharge Medications Home Medications: Home Medications Medication Instructions Recorded Confirmed cholecalciferol (vitamin D3) 25 25 mcg PO DAILY 04/24/20 02/08/21 mcg (1,000 unit) capsule potassium chloride 20 mEq 20 meq PO BID tab 04/24/20 02/08/21 tablet,extended release(part/cryst) vitamin B complex 1 tab PO DAILY 04/24/20 02/08/21 zinc acetate 50 mg (zinc) capsule 50 mg PO DAILY 04/24/20 02/08/21 docusate sodium 100 mg capsule 100 mg PO DAILY 06/13/20 02/08/21 multivitamin 1 tab PO DAILY 06/13/20 02/08/21 blood sugar diagnostic #10 ea 07/31/20 02/08/21 ferrous sulfate 325 mg (65 mg 325 mg PO DAILY 09/14/20 02/08/21 iron) tablet empagliflozin 25 mg tablet 25 mg PO DAILY 11/14/20 02/08/21 spironolactone 25 mg tablet 12.5 mg PO DAILY tab 12/22/20 02/08/21 Trulicity 1.5 mg SUBCUT TH 02/08/21 02/08/21 bumetanide 3 mg PO BID 02/08/21 02/10/21 insulin aspart U-100 [Novolog 18 unit SUBCUT TIDAC 02/08/21 02/08/21 Flexpen U-100 Insulin] Previous Rx's Medication Instructions Recorded blood sugar diagnostic #100 ea 08/16/20 pravastatin 20 mg tablet 20 mg PO BEDTIME #90 tab 10/02/20 pen needle, diabetic 32 gauge x 1 ea MISCELLANEOUS QID #100 ea 10/25/2012/10 metoprolol succinate 25 mg 25 mg PO BID 90 Days #180 tab 11/07/20 tablet,extended release 24 hr tiotropium bromide 18 mcg capsule 1 cap INHALATION DAILY #90 cap 11/20/20 with inhalation device gabapentin 300 mg capsule 300 mg PO TID 90 Days #270 cap 12/22/20 rivaroxaban 20 mg tablet 20 mg PO BEDTIME #90 tab 12/22/20 lancets 33 gauge #100 ea 01/01/21 insulin glargine 100 unit/mL (3 40 unit SUBCUT DAILY 90 Days #36 ml 01/28/21 mL) subcutaneous pen fluticasone 500 mcg-salmeterol 50 1 inh PO BID #180 g 01/31/21 mcg/dose blistr powdr for inhalation cyclobenzaprine 5 mg PO TID PRN 14 Days tab 02/12/21 metolazone See Rx Instructions .ROUTE 02/12/21 .COMPLEX 30 Days tab DS: Summary Hospital Course Hospital Course: Admission note HPI A 70 years old lady with PMH with CHF diastolic, diabetes, CKD, HTN, AFib on Xarelto, on home oxygen 2 L among others who presented to the hospital with worsening bilateral lower extremities edema and weight gain over the last few weeks. The patient reports she started to have sciatica pain more than week ago and was unable to run back and forth to the bathroom so she stopped taking the metolazone and noticed that she has been gaining more weight. She spoke with her title specialist who suggested to her to come to the hospital for further evaluation and treatment. The patient denies any chest pain but reports having dyspnea on exertion and increased edema in lower extremities, abdomen. In the emergency she was found to have elevated BNP with picture of CHF exacerbation. Admitted further evaluation and treatment. Hospital course Patient was admitted to the hospital with significant lower extremity edema and congestion her chest x-ray showing signs of acute congestive heart failure. Treated with IV Bumex and metolazone with good response as she made over 15 L of negative balance over the hospital stay. Evaluated by Cardiology team who suggested using metolazone twice weekly as outpatient and to continue her current home dose of Bumex. Noted to have hypokalemia which is likely result of diuresis. Received replacement with good response. To be discharged on oral potassium replacement. Time Spent with Patient Time attestation: Total time spent providing and/or coordinating discharge services: Discharge coordination time: Greater than 30 minutes Quality: Stroke Does the patient have a stroke diagnosis?: No Physical Exam Vital Signs: Vital Signs: Last Vital Signs Temp 97.5 F 02/12/21 11:34 Pulse 89 02/12/21 11:34 Resp 18 02/12/21 11:34 BP 100/49 L 02/12/21 11:34 Pulse Ox 95 02/12/21 11:34 Oxygen Flow Rate 3 02/08/21 14:21 Body Mass Index 34.6 Const: Other: Constitutional : Alert, oriented, not in distress Neck : Normal inspection, Supple Cardiovascular : RRR, S1 S2, bilateral trace pitting lower extremity edema Respiratory : Decrease bilateral air entry, no crackles, wheezes or rhonchi Gastrointestinal: soft, lax, Normal bowel sounds, Non tender Skin : Warm/Dry Neurological : Alert & oriented x3, No focal deficit DS: Data Data Completed and Pending Labs on day of discharge: Laboratory Results - last 24 hr 02/11/21 02/11/21 02/12/21 16:08 20:06 05:27 Sodium 140 Potassium 3.1 L Chloride 90 L Carbon Dioxide 41 H* Anion Gap 12 BUN 56 H Creatinine 1.65 H Estim Creat Clear Calc 35.4 Estimated GFR 31 POC Glucose 224 H 216 H Random Glucose 137 H Calcium 9.2 02/12/21 02/12/21 07:09 11:16 Sodium Potassium Chloride Carbon Dioxide Anion Gap BUN Creatinine Estim Creat Clear Calc Estimated GFR POC Glucose 135 H 266 H Random Glucose Calcium Discharge Plan Discharge Patient Disposition: er SNF Discharge Diagnosis: CHF exacerbation Referrals: Teri Max MD [Primary Care Provider] - 1 Week Discharge Medications: New cyclobenzaprine 5 mg Tablet 5 mg PO TID PRN (Reason: Muscle Spasm) 14 Days RF: 0 metolazone 2.5 mg tablet See Rx Instructions .ROUTE .COMPLEX 30 Days RF: 0 Continued (DME) OneTouch Ultra Blue Test Strip Strip See Rx Instructions .ROUTE .MEDSUPPLY Qty: 100 RF: 11 pravastatin 20 mg tablet 20 mg PO BEDTIME Qty: 90 RF: 0 Insupen 32 gauge x 5/16 needle 1 ea miscellaneous QID Qty: 100 RF: 11 metoprolol succinate 25 mg tablet extended release 24 hr 25 mg PO BID 90 Days Qty: 180 RF: 1 tiotropium bromide [Spiriva with HandiHaler] 18 mcg capsule, w/inhalation device 1 cap inhalation DAILY Qty: 90 RF: 3 rivaroxaban [Xarelto] 20 mg tablet 20 mg PO BEDTIME Qty: 90 RF: 3 (DME) lancets [OneTouch Delica Plus Lancet] 33 gauge misc See Rx Instructions .ROUTE .MEDSUPPLY Qty: 100 RF: 11 insulin glargine 100 unit/mL (3 mL) insulin pen 40 unit subcut DAILY 90 Days Qty: 36 RF: 11 fluticasone propion-salmeterol [Advair Diskus] 500-50 mcg/dose blister with device 1 inh PO BID Qty: 180 RF: 1 bumetanide 1 mg tablet 3 mg PO BID RF: 0 insulin aspart U-100 [Novolog Flexpen U-100 Insulin] 100 unit/mL (3 mL) insulin pen 18 unit subcut TIDAC RF: 0 Trulicity 1.5 mg/0.5 mL pen injector 1.5 mg subcut TH RF: 0 spironolactone 25 mg tablet 12.5 mg PO DAILY RF: 0 gabapentin 300 mg capsule 300 mg PO TID 90 Days Qty: 270 RF: 1 docusate sodium 100 mg capsule 100 mg PO DAILY RF: 0 multivitamin Tablet 1 tab PO DAILY RF: 0 (DME) blood sugar diagnostic Strip See Rx Instructions ea Not Applicable DAILY Qty: 10 RF: 0 potassium chloride 20 mEq tablet,ER particles/crystals 20 meq PO BID RF: 0 cholecalciferol (vitamin D3) 25 mcg (1,000 unit) capsule 25 mcg PO DAILY RF: 0 zinc acetate 50 mg (zinc) capsule 50 mg PO DAILY RF: 0 vitamin B complex Tablet 1 tab PO DAILY RF: 0 ferrous sulfate [Feosol] 325 mg (65 mg iron) tablet 325 mg PO DAILY RF: 0 Jardiance 25 mg tablet 25 mg PO DAILY RF: 0 Discharge Orders: Discharge Order (Routine); Ordered 02/12/21 Ordered By: Codey Haines Diet: advance to usual diet Activity on Discharge: As tolerated Stand Alone Forms: Patient Portal Discharge page Care Plan Goals: Read below Health Concerns: Read below Plan of Treatment: You were admitted to the hospital for treatment of lower extremity swelling and difficulty breathing. Found to be on heart failure exacerbation treated with diuretics with good response as you were evaluated by Cardiology team. Assessment: Continue Bumex 3 mg twice Daily To use metolazone 2.5 mg 2 times a week continue to monitor your weight To do physical therapy at nursing facility
--- NOTE | 2021-02-12 12:52 | MHC.CM.PN ---
pt to be [facility]red [facility] today at 3:00 with a request that pt to transferred [facility] when bed is avialiable
--- NOTE | 2021-02-12 13:05 | MHC.CM.PN ---
message left for pts son simone jimenez mo [phone]
[2021-02-12 13:24] LABS: COVID-19 Test Negative (Negative); IDNOW Serial# 08D9AD1C
== END 2021-02-12 15:21 | disposition skilled nursing facility (03) | DRG 291 ==
LOC: HO.ED 17:32 → HO.EDOVER 18:24 → HO.IMC 19:39
PROVIDERS: Physician Assistant; Admitting Provider Student in an Organized Health Care Education/Training Program; Emergency Provider Emergency Medicine; PCP Internal Medicine; Visit Provider Student in an Organized Health Care Education/Training Program
DX: I13.0 Hypertensive heart and chronic kidney disease with heart failure and stage 1 through stage 4 chronic kidney disease, or unspecified chronic kidney disease (principal); I50.33 Acute on chronic diastolic (congestive) heart failure; N17.9 Acute kidney failure, unspecified; I48.19 Other persistent atrial fibrillation; N18.4 Chronic kidney disease, stage 4 (severe); E11.22 Type 2 diabetes mellitus with diabetic chronic kidney disease; E78.5 Hyperlipidemia, unspecified; Z20.822 Contact with and (suspected) exposure to COVID-19; E11.649 Type 2 diabetes mellitus with hypoglycemia without coma; T50.2X6A Underdosing of carbonic-anhydrase inhibitors, benzothiadiazides and other diuretics, initial encounter; Z91.128 Patient's intentional underdosing of medication regimen for other reason; I50.810 Right heart failure, unspecified; Y92.9 Unspecified place or not applicable; M54.30 Sciatica, unspecified side; E87.6 Hypokalemia; Z99.81 Dependence on supplemental oxygen; Z87.891 Personal history of nicotine dependence; Z79.4 Long term (current) use of insulin; Z79.01 Long term (current) use of anticoagulants; Z79.52 Long term (current) use of systemic steroids; Z79.899 Other long term (current) drug therapy
CPT/HCPCS: 36415; 71045; 80048; 80076; 81001; 81003; 82947; 83735; 83880; 84484; 85025; 85027; 85610; 85730; 87635; 93005; 93306; 94640; 97110; 97116; 97162; 99285; C1758; Q3014; Q9957

== ENCOUNTER 2021-02-13 12:10 | Emergency (ER) | payer MEDICARE, BC, SELFPAY ==
--- NOTE | ~2021-02-13 | XR_ITS ---
EXAMINATION: XR CHEST CLINICAL INFORMATION: Elevated white count, SOB. COMPARISON: None TECHNIQUE: 2 views of the chest were obtained. FINDINGS: The lungs are well-expanded and clear of acute process. The heart size and pulmonary vascularity is normal. No gross bony abnormality seen. XR/XR chest 2V IMPRESSION: Mild cardiomegaly. No acute process seen.
--- NOTE | 2021-02-13 12:21 | ECG_ITS ---
Test Reason : ABNORMAL LABS Blood Pressure : / mmHG Vent. Rate : 107 BPM Atrial Rate : 104 BPM P-R Int : 000 ms QRS Dur : 104 ms QT Int : 368 ms P-R-T Axes : 000 -11 004 degrees QTc Int : 491 ms Atrial fibrillation with rapid ventricular response Low voltage QRS Incomplete right bundle branch block Nonspecific ST abnormality Abnormal ECG When compared with ECG of 08-FEB-2021 16:55, Criteria for Septal infarct are no longer Present Referred By: Yenifer Cartagena Electronically Signed By:DEISI ROBINS MD
[2021-02-13 12:24] VITALS: BP 112/67; PULSE 97; RESP 16; TEMP 36.6; O2SAT 98; BMI 38.9
--- NOTE | 2021-02-13 12:28 | ED_ITS ---
HPI - Recheck/Abnormal Lab/Rx General Chief Complaint: Recheck/Abnormal Lab/Rx Stated Complaint: abnormal labs Time Seen by Provider: 02/13/21 12:11 Source: patient and EMS Mode of arrival: EMS Limitations: no limitations History of Present Illness HPI narrative: 70-year-old female with a past medical history of heart failure with preserved EF, CKD, DM, HLD, HTN, obesity, AFib on Xarelto, tricuspid regurg, pulmonary hypertension, on chronic O2 2L NC here with complaints of abnormal labs. Patient is currently residing at [facility]. She had labs done today which showed a potassium of 3.1. The patient tells me that she does take supplements 40 mg daily. She was sent into the emergency department for evaluation of this hypokalemia. She does have shortness of breath which is chronic and unchanged. She denies any weakness or dizziness. She tells me this morning she was able to walk around with no issues. She is on multiple diuretics. No vomiting or diarrhea. Related Data Home Medications Medication Instructions Recorded Confirmed cholecalciferol (vitamin D3) 25 25 mcg PO DAILY 04/24/20 02/08/21 mcg (1,000 unit) capsule potassium chloride 20 mEq 20 meq PO BID tab 04/24/20 02/08/21 tablet,extended release(part/cryst) vitamin B complex 1 tab PO DAILY 04/24/20 02/08/21 zinc acetate 50 mg (zinc) capsule 50 mg PO DAILY 04/24/20 02/08/21 docusate sodium 100 mg capsule 100 mg PO DAILY 06/13/20 02/08/21 multivitamin 1 tab PO DAILY 06/13/20 02/08/21 blood sugar diagnostic #10 ea 07/31/20 02/08/21 ferrous sulfate 325 mg (65 mg 325 mg PO DAILY 09/14/20 02/08/21 iron) tablet empagliflozin 25 mg tablet 25 mg PO DAILY 11/14/20 02/08/21 spironolactone 25 mg tablet 12.5 mg PO DAILY tab 12/22/20 02/08/21 Trulicity 1.5 mg SUBCUT TH 02/08/21 02/08/21 bumetanide 3 mg PO BID 02/08/21 02/10/21 insulin aspart U-100 [Novolog 18 unit SUBCUT TIDAC 02/08/21 02/08/21 Flexpen U-100 Insulin] Previous Rx's Medication Instructions Recorded blood sugar diagnostic #100 ea 08/16/20 pravastatin 20 mg tablet 20 mg PO BEDTIME #90 tab 10/02/20 pen needle, diabetic 32 gauge x 1 ea MISCELLANEOUS QID #100 ea 10/25/20 5/ metoprolol succinate 25 mg 25 mg PO BID 90 Days #180 tab 11/07/20 tablet,extended release 24 hr tiotropium bromide 18 mcg capsule 1 cap INHALATION DAILY #90 cap 11/20/20 with inhalation device gabapentin 300 mg capsule 300 mg PO TID 90 Days #270 cap 12/22/20 rivaroxaban 20 mg tablet 20 mg PO BEDTIME #90 tab 12/22/20 lancets 33 gauge #100 ea 01/01/21 insulin glargine 100 unit/mL (3 40 unit SUBCUT DAILY 90 Days #36 ml 01/28/21 mL) subcutaneous pen fluticasone 500 mcg-salmeterol 50 1 inh PO BID #180 g 01/31/21 mcg/dose blistr powdr for inhalation cyclobenzaprine 5 mg PO TID PRN 14 Days tab 02/12/21 metolazone See Rx Instructions .ROUTE 02/12/21 .COMPLEX 30 Days tab Allergies Allergy/AdvReac Type Severity Reaction Status Date / Time oxycodone [Percocet] Allergy Unknown nausea and Verified 01/30/21 09:07 vomiting Review of Systems Review of Systems: Yes all other systems are reviewed and are negative Constitutional: Constitutional: Reports no additional constitutional c omplaints, Denies body ache(s), Denies chills, Denies fever(s), Denies headache(s) and Denies weakness Eyes: Eyes: Reports no additional eye complaints and Denies change in vision ENT: Reports system reviewed and no additional complaints, except as documented, Denies dizziness, Denies headache(s), Denies nasal congestion, Denies nasal discharge and Denies neck pain Cardiovascular: Cardiovascular: Reports no additional cardiovascular complaints, Denies chest pain, Denies leg edema and Reports dyspnea (Chronic) Respiratory: Respiratory: Reports no additional respiratory complaints, Denies cough and Reports dyspnea (Chronic) Gastrointestinal: Gastrointestinal: Reports no additional gastrointestinal complaints, Denies abdominal pain, Denies diarrhea, Denies nausea and Denies vomiting Genitourinary: Genitourinary: Reports no additional female genitourinary complaints and Denies urinary incontinence Musculoskeletal: Musculoskeletal: Reports no additional musculoskeletal complaints, Denies back pain, Denies arthralgias, Denies joint swelling, Denies neck pain, Denies numbness and Denies tingling Integumentary/Breasts: Skin/Breast: Reports system reviewed and no additional complaints, except as docu and Denies rash Neurologic: Reports system reviewed and no additional complaints, except as documented, Denies Abnormal speech present, Denies dizziness, Denies headache(s), Denies numbness, Denies tingling and Denies weakness [facility] Past Medical History Attestation statement: The following information was validated with the patient. 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 Mother No problems noted. Brother No problems noted. Son No problems noted. Social History Social History Household Members: None Housing: Apartment Do you presently have visiting nurse or other home services: No Alcohol intake: never Patient Tobacco Use Status: Former Tobacco user Advance Directives: Yes Advance Directives on File: Yes Advance Directives Date on File: 02/09/21 service: No Current occupational status: retired Physical Exam Vital Signs: Vital Signs: Last Vital Signs Temp 97.8 F 07/20/21 13:01 Pulse 97 02/13/21 12:24 Resp 16 02/13/21 12:24 BP 96/61 02/13/21 13:01 Pulse Ox 92 02/13/21 13:01 Body Mass Index 38.9 Const: General: cooperative, healthy appearing, comfortable and no acute distress Orientation/consciousness: patient oriented x3 Limitations: no limitations HENMT: Head: Yes normal to inspection Ears: hearing grossly normal bilaterally General nose exam: Normal external nose present Face and sinus: Yes normal facial exam Mouth: Normal oral and palatal mucosa present Throat: Yes posterior oropharynx normal Eyes: General: appearance normal, both eyes and all related structures Pupils: Equal, round and reactive pupils present Neck: Neck: Yes normal visual inspection Chest: Chest palpation & inspection: normal inspection of the chest Resp: Effort & Inspection: normal respiratory effort Auscultation: clear to auscultation bilaterally Cardio: Rate: tachycardic (Rate 107. Irregularly irregular) Peripheral pulses: Peripheral pulses 2+ throughout GI: Inspection: Yes normal to inspection Palpation (GI): Soft to palpation and nontender Auscultation: normal bowel sounds Back/Spine/Pelvis: Thoracic/Lumbar Spine: thoracic and lumbar spine normal to inspection Skin: General skin exam: no rashes or lesions noted Neuro: General: patient oriented x3, no focal motor deficits and normal sensation to monofilament Cranial nerves: Yes Equal, round and reactive pupils present Cognition (Neuro): normal cognition Speech: No Abnormal speech present Gait exam (Neuro): Normal gait present Motor exam (neuro): 5/5 motor strength present throughout Extrem: Other: Mild bilateral edema. Nonpitting. General: Yes normal to inspection Course Course Course Narrative: 70-year-old female here from a short-term rehab with reports of low potassium. On review of the chart the patient has a potassium of 3.1 which was drawn today. She denies any complaints from her baseline. She does have congestive heart failure and is on multiple diuretics. She is taking potassium replacement 40 mg daily. Denies GI losses. Will recheck labs, check EKG 1300-patient has a leukocytosis which is new from previous. Will check urine and chest x-ray to rule out underlying infection. Potassium is actually 3.3 today. No need for further replacement. Renal function at baseline. Mild hypochloremia unchanged from previous. 1415-x-ray and urine show no signs of infection. Likely reactive. Patient will be discharged back to her SNF MDM - Recheck/Abnormal Lab/Rx Medical Records Attestation: I reviewed the patient's medical records. Lab Data Attestation: I reviewed the patient's lab results. Result diagrams: 02/13/21 12:37 02/13/21 12:37 Labs: Lab Results 02/13/21 02/13/21 02/13/21 Range/Units 12:37 12:37 13:18 WBC 13.1 H (4.8-10.8) X10*3/uL RBC 4.72 D (4.20-5.50) X10*6/uL Hgb 14.7 D (12.0-16.0) g/dl Hct 44.9 D (37-47) % MCV 95.1 (80-98) fL MCH 31.1 (27.0-33.0) pg MCHC 32.7 (31.0-35.0) g/dl RDW 14.4 (11.0-16.0) % Plt Count 276 (160-400) X10*3/uL MPV 8.6 L (9.4-12.3) fL Immature Gran % (Auto) 0.6 H (0.0-0.4) % Neut % (Auto) 80.8 H (45-73) % Lymph % (Auto) 8.8 L (20-40) % [place] % (Auto) 9.0 (2-11) % Eos % (Auto) 0.6 (0-4) % Baso % (Auto) 0.2 (0-2) % Lymph # (Auto) 1.2 (1.2-4.9) X10*3/uL [place] # (Auto) 1.2 (0.1-1.2) X10*3/uL Eos # (Auto) 0.1 (0.0-0.4) X10*3/uL Baso # (Auto) 0.0 (0.0-0.2) X10*3/uL Abs Immat Gran (auto) 0.08 H (0.00-0.03) X10*3/uL Absolute Neuts (auto) 10.6 H (2.0-8.3) X10*3/uL Absolute Nucleated RBC 0.000 (0.0-0.012) X10*3/uL Nucleated RBC % (auto) 0.0 (0.0-0.2) /100WBC Sodium 136 (135-145) mmol/L Potassium 3.3 (3.3-5.1) mmol/L Chloride 89 L (96-108) mmol/L Carbon Dioxide 33 H (22-29) mmol/L Anion Gap 17 (12-20) BUN 54 H (9-16) mg/dL Creatinine 1.68 H (0.5-1.4) mg/dL Estim Creat Clear Calc 34.6 Estimated GFR 30 Random Glucose 235 H D (60-115) mg/dL Calcium 10.0 D (8.4-10.2) mg/dL Magnesium 2.7 H (1.6-2.6) mg/dL Urine Color YELLOW Urine Appearance CLEAR Urine pH 6.0 (5.0-8.0) Ur Specific [place] <= 1.005 (1.005-1.025) Urine Protein NEG (NEG-TRACE) MG/DL Urine Glucose (UA) 500 H (NEG) MG/DL Urine Ketones NEG (NEG) MG/DL Urine Blood TRACE (NEG) Urine Nitrite NEG (NEG) Ur Leukocyte Esterase NEG (NEG) Urine RBC 0-2 (0) /HPF Urine WBC 0-2 (0-4) /HPF Ur Squamous Epith Cells TRACE /LPF Urine Bacteria NONE /LPF Urine Yeast TRACE /HPF Imaging Data Chest x-ray: Attestation: I personally reviewed and interpreted this imaging study as follows: Radiologist's impression: [address] [id number] ReportSigned Patient: Anahy LittleR#: [id number]: 9Acct:[id number]/Sex: 70 / FADM Date: 02/13/21Loc: Jerica Sauceda: Ordering Physician: PAULINA ESPINOZA NP Date of Service: 02/13/21 Procedure(s): XR chest 2V Accession Number(s): [id number] cc: PAULINA ESPINOZA NP~ EXAMINATION: XR CHEST CLINICAL INFORMATION: Elevated white count, SOB. COMPARISON: None TECHNIQUE: 2 views of the chest were obtained. FINDINGS: The lungs are well-expanded and clear of acute process. The heart size and pulmonary vascularity is normal. No gross bony abnormality seen. XR/XR chest 2V IMPRESSION: Mild cardiomegaly. No acute process seen. ECG Data Attestation: I personally reviewed and interpreted this ECG as follows: ECG interpretation date: 02/13/21 ECG interpretation time: 12:27 Interpretation: AFib with RVR with rate of 107, normal QRS, normal QT Discharge Plan Discharge Clinical Impression: H/O hypokalemia, CKD (chronic kidney disease), Leukocytosis Patient Disposition: [facility] Transfer Details: [facility] Instructions: Chronic Kidney Disease (ED), Hypokalemia (ED), Leukocytosis (ED) Additional Instructions: Potassium was 3.3 The patient had elevated white blood cell count very mildly. Her x-ray and urine show no signs of infection Prescriptions: No Action (DME) OneTouch Ultra Blue Test Strip Strip See Rx Instructions .ROUTE .MEDSUPPLY Qty: 100 RF: 11 pravastatin 20 mg tablet 20 mg PO BEDTIME Qty: 90 RF: 0 Insupen 32 gauge x 5/16 needle 1 ea miscellaneous QID Qty: 100 RF: 11 metoprolol succinate 25 mg tablet extended release 24 hr 25 mg PO BID 90 Days Qty: 180 RF: 1 tiotropium bromide [Spiriva with HandiHaler] 18 mcg capsule, w/inhalation device 1 cap inhalation DAILY Qty: 90 RF: 3 rivaroxaban [Xarelto] 20 mg tablet 20 mg PO BEDTIME Qty: 90 RF: 3 (DME) lancets [OneTouch Delica Plus Lancet] 33 gauge misc See Rx Instructions .ROUTE .MEDSUPPLY Qty: 100 RF: 11 insulin glargine 100 unit/mL (3 mL) insulin pen 40 unit subcut DAILY 90 Days Qty: 36 RF: 11 fluticasone propion-salmeterol [Advair Diskus] 500-50 mcg/dose blister with device 1 inh PO BID Qty: 180 RF: 1 bumetanide 1 mg tablet 3 mg PO BID RF: 0 insulin aspart U-100 [Novolog Flexpen U-100 Insulin] 100 unit/mL (3 mL) insulin pen 18 unit subcut TIDAC RF: 0 Trulicity 1.5 mg/0.5 mL pen injector 1.5 mg subcut TH RF: 0 cyclobenzaprine 5 mg Tablet 5 mg PO TID PRN (Reason: Muscle Spasm) 14 Days RF: 0 metolazone 2.5 mg tablet See Rx Instructions .ROUTE .COMPLEX 30 Days RF: 0 spironolactone 25 mg tablet 12.5 mg PO DAILY RF: 0 gabapentin 300 mg capsule 300 mg PO TID 90 Days Qty: 270 RF: 1 docusate sodium 100 mg capsule 100 mg PO DAILY RF: 0 multivitamin Tablet 1 tab PO DAILY RF: 0 (DME) blood sugar diagnostic Strip See Rx Instructions ea Not Applicable DAILY Qty: 10 RF: 0 potassium chloride 20 mEq tablet,ER particles/crystals 20 meq PO BID RF: 0 cholecalciferol (vitamin D3) 25 mcg (1,000 unit) capsule 25 mcg PO DAILY RF: 0 zinc acetate 50 mg (zinc) capsule 50 mg PO DAILY RF: 0 vitamin B complex Tablet 1 tab PO DAILY RF: 0 ferrous sulfate [Feosol] 325 mg (65 mg iron) tablet 325 mg PO DAILY RF: 0 Jardiance 25 mg tablet 25 mg PO DAILY RF: 0 Interventions: ED Discharge Assessment Last Done: 02/13/21 15:34 Discharge Date/Time: 02/13/21 15:34
[2021-02-13 12:41] LABS: MANUAL DIFF FLAG NO
[2021-02-13 12:44] LABS: Basophils Percent Auto 0.2 % (0-2); Eosinophils Absolute Auto 0.1 X10*3/uL (0.0-0.4); Eosinophils Percent Auto 0.6 % (0-4); Hematocrit 44.9 % (37-47); Hemoglobin 14.7 g/dl (12.0-16.0); Imm Gran Abs Auto 0.08 X10*3/uL (0.00-0.03); Imm Gran Pct Auto 0.6 % (0.0-0.4); Lymphocytes Absolute Auto 1.2 X10*3/uL (1.2-4.9); Lymphocytes Percent Auto 8.8 % (20-40); Mean Corpuscular HGB Conc 32.7 g/dl (31.0-35.0); Mean Corpuscular Hemoglobin 31.1 pg (27.0-33.0); Mean Corpuscular Volume 95.1 fL (80-98); Mean Platelet Volume 8.6 fL (9.4-12.3); Monocytes Absolute Auto 1.2 X10*3/uL (0.1-1.2); Neutrophils Absolute Auto 10.6 X10*3/uL (2.0-8.3); Neutrophils Percent Auto 80.8 % (45-73); Platelet Count 276 X10*3/uL (160-400); Red Blood Count 4.72 X10*6/uL (4.20-5.50); Red Cell Distribution Width 14.4 % (11.0-16.0); White Blood Count 13.1 X10*3/uL (4.8-10.8)
[2021-02-13 13:01] VITALS: BP 96/61; TEMP 36.6; O2SAT 92
[2021-02-13 13:04] LABS: Anion Gap 17 (12-20); Blood Urea Nitrogen 54 mg/dL (9-16); Carbon Dioxide 33 mmol/L (22-29); Chloride 89 mmol/L (96-108); Creatinine Clr Calc Pharmacy 34.6; Estimated Glomerular Filt Rate 30; Glucose Random 235 mg/dL (60-115); Magnesium 2.7 mg/dL (1.6-2.6); Potassium 3.3 mmol/L (3.3-5.1); Sodium 136 mmol/L (135-145)
--- NOTE | 2021-02-13 13:23 | PC.NURSE ---
pts incontinence brief completely saturated in urine. this RN disposed of pts brief and put pt on a bed reveles to collect urine sample. pt voided appx 200ml clear yellow urine into bed reveles. Pt then placed on purewick connected to wall suction. pt sts she is comfortable. Will continue to monitor.
--- NOTE | 2021-02-13 13:26 | PC.NURSE ---
yasemin ordered for pt
[2021-02-13 13:53] LABS: Glucose Urine UA 500 MG/DL (NEG); Leukocyte Esterase Urine NEG (NEG); Nitrite Urine NEG (NEG); Specific Gravity - Urine <= 1.005 (1.005-1.025); Urine Blood TRACE (NEG); Urine Ketones NEG (NEG); Urine Protein NEG (NEG-TRACE)
[2021-02-13 13:59] LABS: Appearance Urine CLEAR; Color Urine YELLOW
[2021-02-13 14:13] LABS: RBC Urine 0-2 /HPF (0); Squamous Epithelial Cell Urine TRACE /LPF; WBC Urine 0-2 /HPF (0-4)
== END 2021-02-13 15:34 | disposition skilled nursing facility (03) ==
PROVIDERS: Nurse Practitioner Family; Emergency Provider Emergency Medicine; PCP Internal Medicine
DX: E87.6 Hypokalemia (principal); D72.829 Elevated white blood cell count, unspecified; E11.22 Type 2 diabetes mellitus with diabetic chronic kidney disease; I12.9 Hypertensive chronic kidney disease with stage 1 through stage 4 chronic kidney disease, or unspecified chronic kidney disease; N18.9 Chronic kidney disease, unspecified; J44.9 Chronic obstructive pulmonary disease, unspecified; Z99.81 Dependence on supplemental oxygen; Z79.4 Long term (current) use of insulin; Z79.899 Other long term (current) drug therapy
CPT/HCPCS: 36415; 71046; 80048; 81001; 83735; 85025; 93005; 99284

== ENCOUNTER 2021-03-23 10:16 | Outpatient (REF) | payer MEDICARE, BC, SELFPAY ==
[2021-03-23 12:22] LABS: Anion Gap 15 (12-20); Blood Urea Nitrogen 42 mg/dL (9-16); Carbon Dioxide 33 mmol/L (22-29); Chloride 92 mmol/L (96-108); Estimated Glomerular Filt Rate 31; Sodium 136 mmol/L (135-145)
== END 2021-03-23 10:17 | disposition home or self-care (01) ==
LOC: HO.HMGCLDS 10:16
PROVIDERS: PCP Internal Medicine; Visit Provider Internal Medicine
DX: E11.9 Type 2 diabetes mellitus without complications (principal); E87.6 Hypokalemia; I10 Essential (primary) hypertension; Z79.4 Long term (current) use of insulin
CPT/HCPCS: 36415; 80051; 82565; 84520

== ENCOUNTER → 2021-05-31 11:01 | Outpatient (BNVA) | payer MEDICARE, BC, SELFPAY | PROVIDERS: PCP Internal Medicine; Visit Provider Internal Medicine Pulmonary Disease | DX: J44.9 Chronic obstructive pulmonary disease, unspecified (principal); G47.33 Obstructive sleep apnea (adult) (pediatric); Z99.81 Dependence on supplemental oxygen | CPT/HCPCS: Q3014 ==

== ENCOUNTER → 2021-06-12 14:12 | Outpatient (BNVA) | payer MEDICARE, BC, SELFPAY | PROVIDERS: PCP Internal Medicine; Referring Provider Internal Medicine; Visit Provider Internal Medicine Cardiovascular Disease | DX: I50.30 Unspecified diastolic (congestive) heart failure (principal); I48.19 Other persistent atrial fibrillation; M10.9 Gout, unspecified | CPT/HCPCS: Q3014 ==

== ENCOUNTER 2021-07-19 12:34 | Outpatient (REF) | payer MEDICARE, BC, SELFPAY ==
--- NOTE | ~2021-07-19 | MM_ITS ---
EXAMINATION: MM SCREENING DIGITAL BREAST TOMOSYNTHESIS, BILATERAL CLINICAL INFORMATION: Screening. Asymptomatic. The lifetime risk of breast cancer based on the Tyrer-Cuzick Model is 2%. COMPARISON: Mammography: 07/11/2020, 07/06/2019, 06/30/2018 TECHNIQUE: Digital breast tomosynthesis is performed in both the craniocaudal and mediolateral oblique views along with computer-aided detection (CAD). Synthesized 2D images are generated from the tomosynthesis. FINDINGS: There are scattered areas of fibroglandular density (ACR BI-RADS breast composition Category b). Parenchymal pattern is similar to prior studies. Again, there is some asymmetry of the breasts, right slightly larger. There is no developing density or interval mass or architectural abnormality. Some prominent draining veins are again noted. There are bilateral vascular calcifications as well as some round and ductal secretory calcifications. The axilla are unremarkable. No significant changes from prior studies. MM/MM tomosynthesis screening BI IMPRESSION: No mammographic evidence of malignancy. ASSESSMENT: BI-RADS 2: Benign RECOMMENDATION: Routine annual mammography screening. This patient's information was entered into a reminder system with a target due date for their next mammogram.
== END 2021-07-19 12:35 | disposition home or self-care (01) ==
LOC: HO.MAMMO 12:34
PROVIDERS: Visit Provider Internal Medicine
DX: Z12.31 Encounter for screening mammogram for malignant neoplasm of breast (principal)
CPT/HCPCS: 77063; 77067

== ENCOUNTER → 2021-09-24 09:57 | Outpatient (BNVA) | payer MEDICARE, BC, SELFPAY | PROVIDERS: PCP Internal Medicine; Referring Provider Internal Medicine; Visit Provider Internal Medicine Cardiovascular Disease | DX: I50.30 Unspecified diastolic (congestive) heart failure (principal); I48.19 Other persistent atrial fibrillation | CPT/HCPCS: 99212 ==

== ENCOUNTER 2021-10-19 10:35 | Outpatient (REF) | payer MEDICARE, BC, SELFPAY ==
[2021-10-19 13:40] LABS: Hematocrit 37.3 % (37.0-47.0); Hemoglobin 12.3 g/dl (12.0-16.0); Mean Corpuscular Hemoglobin 31.1 pg (27.0-33.0); Mean Corpuscular Volume 94.4 fL (80.0-98.0); Mean Platelet Volume 9.2 fL (9.4-12.3); Platelet Count 296 X10*3/uL (160-400); Red Blood Count 3.95 X10*6/uL (4.20-5.50); Red Cell Distribution Width 14.4 % (11.0-16.0); White Blood Count 11.7 X10*3/uL (4.8-10.8)
[2021-10-19 14:11] LABS: Anion Gap 13 (12-20); Blood Urea Nitrogen 29 mg/dL (9-16); Calcium 9.4 mg/dL (8.4-10.2); Carbon Dioxide 36 mmol/L (22-29); Chloride 87 mmol/L (96-108); Estimated Glomerular Filt Rate 44; Glucose Random 230 mg/dL (60-115); Potassium 2.7 mmol/L (3.3-5.1); Sodium 133 mmol/L (135-145)
[2021-10-19 14:12] LABS: B Type Natriuretic Peptide 337 pg/mL (<100)
== END 2021-10-19 10:36 | disposition home or self-care (01) ==
LOC: HO.HMGCLDS 10:35
PROVIDERS: Visit Provider Internal Medicine Cardiovascular Disease
DX: I50.30 Unspecified diastolic (congestive) heart failure (principal)
CPT/HCPCS: 36415; 80048; 83880; 85027

== ENCOUNTER 2021-10-26 10:32 | Outpatient (REF) | payer MEDICARE, BC, SELFPAY ==
[2021-10-26 12:26] LABS: Anion Gap 14 (12-20); Blood Urea Nitrogen 36 mg/dL (9-16); Calcium 9.7 mg/dL (8.4-10.2); Carbon Dioxide 35 mmol/L (22-29); Chloride 89 mmol/L (96-108); Estimated Glomerular Filt Rate 43; Glucose Random 204 mg/dL (60-115); Potassium 3.5 mmol/L (3.3-5.1); Sodium 134 mmol/L (135-145)
== END 2021-10-26 10:33 | disposition home or self-care (01) ==
LOC: HO.LAB 10:32
PROVIDERS: Internal Medicine Cardiovascular Disease; PCP Internal Medicine; Visit Provider Internal Medicine Pulmonary Disease
DX: J44.9 Chronic obstructive pulmonary disease, unspecified (principal); G47.33 Obstructive sleep apnea (adult) (pediatric); I50.30 Unspecified diastolic (congestive) heart failure; Z99.81 Dependence on supplemental oxygen
CPT/HCPCS: 36415; 80048; 99212

== ENCOUNTER → 2021-11-27 15:06 | Outpatient (BNVA) | payer MEDICARE, BC, SELFPAY | PROVIDERS: PCP Internal Medicine; Visit Provider Registered Nurse Diabetes Educator | DX: E11.9 Type 2 diabetes mellitus without complications (principal) | CPT/HCPCS: 98968; 99211 ==

== ENCOUNTER → 2021-12-10 07:43 | Outpatient (BNVA) | payer MEDICARE, BC, SELFPAY | PROVIDERS: PCP Internal Medicine; Visit Provider Internal Medicine | DX: E11.22 Type 2 diabetes mellitus with diabetic chronic kidney disease (principal); I12.9 Hypertensive chronic kidney disease with stage 1 through stage 4 chronic kidney disease, or unspecified chronic kidney disease; N18.9 Chronic kidney disease, unspecified; E78.5 Hyperlipidemia, unspecified | CPT/HCPCS: Q3014 ==

== ENCOUNTER 2021-12-14 12:12 | Outpatient (REF) | payer MEDICARE, BC, SELFPAY ==
[2021-12-14 14:14] LABS: Estimated Average Glucose 220 mg/dL; Hemoglobin A1c % 9.3 %
[2021-12-14 14:22] LABS: Creatinine Urine 42.86 mg/dL; Microalbum/Creatinine Ratio Ur 11.6 ug/mg cr
[2021-12-14 14:23] LABS: Alanine Aminotransferase 16 U/L (0-31); Albumin Level 3.5 g/dL (3.5-5.0); Alkaline Phosphatase 128 U/L (39-117); Anion Gap 14 (12-20); Aspartate Amino Transferase 25 U/L (5-31); Bilirubin Total 1.2 mg/dL (0.0-1.0); Blood Urea Nitrogen 38 mg/dL (9-16); Calcium 9.3 mg/dL (8.4-10.2); Carbon Dioxide 36 mmol/L (22-29); Chloride 90 mmol/L (96-108); Cholesterol 113 mg/dL; Estimated Glomerular Filt Rate 36; Glucose Random 325 mg/dL (60-115); HDL Cholesterol 41 mg/dL; LDL Cholesterol Calculated 58 mg/dl; Sodium 136 mmol/L (135-145); Total Protein 6.9 g/dL (6.5-8.0); Triglycerides 72 mg/dL
[2021-12-15 12:11] LABS: LDL Cholesterol Direct 55 mg/dL (<100)
== END 2021-12-14 12:13 | disposition home or self-care (01) ==
LOC: HO.HMGCLDS 12:12
PROVIDERS: PCP Internal Medicine; Visit Provider Internal Medicine
DX: E11.9 Type 2 diabetes mellitus without complications (principal)
CPT/HCPCS: 36415; 80053; 80061; 82043; 83036; 83721

== ENCOUNTER → 2021-12-27 12:13 | Outpatient (BNVA) | payer MEDICARE, BC, SELFPAY | PROVIDERS: Visit Provider Registered Nurse Diabetes Educator | DX: E11.9 Type 2 diabetes mellitus without complications (principal) | CPT/HCPCS: 99211 ==

== ENCOUNTER 2022-01-29 14:33 | Inpatient (IN) | payer MEDICARE, BC, SELFPAY ==
--- NOTE | ~2022-01-29 | XR_ITS ---
EXAMINATION: XR CHEST CLINICAL INFORMATION: Dyspnea COMPARISON: 02/13/2021 TECHNIQUE: Frontal view of the chest was obtained. FINDINGS: Moderate cardiomegaly with mild distention of the pulmonary vessels. Lungs grossly clear. XR/XR chest 1V IMPRESSION: Mild congestive change.
--- NOTE | 2022-01-29 14:40 | ECG_ITS ---
Test Reason : SOB Blood Pressure : / mmHG Vent. Rate : 117 BPM Atrial Rate : 000 BPM P-R Int : 000 ms QRS Dur : 096 ms QT Int : 360 ms P-R-T Axes : 000 010 053 degrees QTc Int : 502 ms Atrial fibrillation with rapid ventricular response with premature ventricular or aberrantly conducted complexes Low voltage QRS Septal infarct , age undetermined Abnormal ECG When compared with ECG of 13-FEB-2021 12:27, Septal infarct is now Present Referred By: Darline Wesley Electronically Signed By:Dave Lau
--- NOTE | 2022-01-29 14:41 | ED.SOB ---
HPI - SOB/Dyspnea General Chief Complaint: Dyspnea Stated Complaint: SHORTNESS OF BREATH Time Seen by Provider: 01/29/22 14:41 Source: patient Mode of arrival: EMS Limitations: no limitations History of Present Illness HPI Narrative: 71 yo female with hx of PAF on xarelto, CHF, COPD on home O2, HLD, DM, obesity, HTN, MELANIE has had increased dyspnea x 5 days with 5lb weight gain. EMS states the patient was 93% on 2L NC but pursed lip breathing put on CPAP. Patient denies fevers or chest pain no sputum production. She reports compliance with all medications. MD elicited complaint: shortness of breath Pertinent past history: COPD and congestive heart failure Onset (ago): day(s) (5) Timing: progressively worsening Severity: moderate Exacerbating factors: exertion Relieving factors: oxygen and rest Known history of: COPD and congestive heart failure Associated symptoms: other (weight gain, LE edema) Treatment prior to arrival: oxygen and NIPPV Related Data Home oxygen amount: 2 liters Home Medications Medication Instructions Recorded Confirmed cholecalciferol (vitamin D3) 25 25 mcg PO DAILY 04/24/20 01/29/22 mcg (1,000 unit) capsule vitamin B complex 1 tab PO DAILY 04/24/20 01/29/22 zinc acetate 50 mg (zinc) capsule 50 mg PO DAILY 04/24/20 01/29/22 multivitamin 1 tab PO DAILY 06/13/20 01/29/22 ferrous sulfate 325 mg (65 mg 325 mg PO DAILY 09/14/20 01/29/22 iron) tablet (Feosol) potassium chloride 20 mEq 20 meq PO TID 03/23/21 01/29/22 tablet,extended release(part/cryst) docusate sodium 100 mg capsule 100 mg PO DAILY 05/31/21 01/29/22 (Colace) allopurinol 100 mg tablet 100 mg PO DAILY 09/24/21 01/29/22 insulin glargine 100 unit/mL (3 30 unit subcut DAILY 12/10/21 01/29/22 mL) subcutaneous pen insulin aspart U-100 100 unit/mL 20 unit subcut TID 01/29/22 01/29/22 (3 mL) subcutaneous pen (Novolog Flexpen U-100 Insulin aspart) Previous Rx's Medication Instructions Recorded blood sugar diagnostic ([employer] #100 ea 08/16/20 Ultra Blue Test Strip) lancets 33 gauge (OneTouch Delica #100 ea 01/01/21 Plus Lancet) flash glucose sensor (FreeStyle #2 ea 06/11/21 [place] 14 Day Sensor) rivaroxaban 15 mg tablet (Xarelto) 15 mg PO DAILY #90 tabs 06/12/21 tiotropium bromide 18 mcg capsule 1 cap inhalation DAILY 90 days #90 10/26/21 with inhalation device (Spiriva caps with HandiHaler) metolazone 5 mg tablet 5 mg PO DAILY #20 tabs 10/31/21 bumetanide 1 mg tablet 3 mg PO BID 90 days #540 tabs 11/05/21 gabapentin 300 mg capsule 300 mg PO TID 90 days #270 caps 11/15/21 spironolactone 25 mg tablet 25 mg PO DAILY 90 days #90 tabs 11/21/21 albuterol sulfate 90 mcg/actuation 2 puff inhalation Q6H PRN 12/17/21 aerosol inhaler shortness of breath or wheezing #1 ea pravastatin 20 mg tablet 20 mg PO BEDTIME #90 tabs 12/25/21 fluticasone 500 mcg-salmeterol 50 1 inh PO BID #180 grams 12/26/21 mcg/dose blistr powdr for inhalation (Advair Diskus) pen needle, diabetic 32 gauge x 1 ea miscellaneous QID #400 ea 12/27/2112/10 (Insupen) dulaglutide 4.5 mg/0.5 mL 4.5 mg (0.5 mL) subcut QWEEK 30 01/02/22 subcutaneous pen injector days #2.5 mL (Trulicity) Allergies Allergy/AdvReac Type Severity Reaction Status Date / Time oxycodone [Percocet] Allergy Unknown nausea and Verified 12/10/21 07:59 vomiting Review of Systems Review of Systems: Constitutional : No Fever, No Chills ENT/Mouth : No sore throat, No Rhinorrhea, No Swallowing Difficulty Eyes: No Eye Pain, No Swelling, No Redness Cardiovascular : No Chest Pain, positive SOB, pos Orthopnea, positive Edema Respiratory : No Cough, No Sputum, pos Wheezing, positive dyspnea Gastrointestinal : No Nausea, No Vomiting, No Diarrhea, No abdominal Pain, No Hematochezia, No Melena Genitourinary : No Dysuria, No Urinary Frequency, No Hematuria Musculoskeletal : No joint pain, No Myalgias Skin : No Skin Lesions, No rash Neuro : No Weakness, No Numbness, No Dizziness, No Headache Psych : No Anxiety/Panic, No Depression Heme/Lymph: No Bruising, No Lymphadenopathy Endocrine : No Polyuria, No Polydipsia All other systems reviewed and are negative [facility] Past Medical History Medical History (HFpEF) heart failure with preserved ejection fraction CKD (chronic kidney disease) Congestive heart failure (CHF) Diabetes mellitus HLD (hyperlipidemia) HTN (hypertension) custodial (current) use of insulin Morbid obesity Paroxysmal atrial fibrillation Persistent atrial fibrillation Phlebitis of left leg Pulmonary hypertension Right heart failure (secondary to left heart failure) T2DM (type 2 diabetes mellitus) Tricuspid regurgitation Vitamin D deficiency Surgical History History of colectomy (~1983) History of colonoscopy History of hernia repair (~07/2011) History of hysteroscopy (~2007) History of left breast biopsy (~04/09/11) History of left inguinal hernia repair (~01/28/20) Family History Family History Father No problems noted. Mother No problems noted. Brother No problems noted. Son No problems noted. Other Substance use disorder Social History Social History Household Members: None Housing: Apartment Do you presently have visiting nurse or other home services: No Alcohol intake: never Patient Tobacco Use Status: Former Tobacco user Use of substances other than those prescribed or required for medical reasons: No Advance Directives: Yes Advance Directives Information Provided: No Advance Directives on File: No Advance Directives Date on File: 02/09/21 service: No Current occupational status: retired Physical Exam Vital Signs: Vital Signs: Last Vital Signs Temp 98.2 F 01/29/22 15:24 Pulse 110 H 01/29/22 15:24 Resp 22 H 01/29/22 15:24 BP 122/65 01/29/22 15:24 Pulse Ox 90 L 01/29/22 15:24 O2 Del Method 01/29/22 15:24 O2 Flow Rate 4 07/05/22 15:24 Oxygen Flow Rate 4 01/29/22 15:18 BMI result Body Mass Index 47.2 Appearance: Alert. Oriented X3. No acute distress. Eyes: Pupils equal, round and reactive to light. ENT: Pharynx normal. Neck: Normal inspection. Neck supple. CVS: Normal heart rate and rhythm. Pulses normal. Respiratory: No respiratory distress. Breath sounds very diminished throughout patient on CPAP Abdomen: Soft and nontender. Obese Skin: Skin warm and dry. Normal skin color. Normal skin turgor. Extremities: pitting 2+ lower extremity edema. No calf ttp skin is shiny and erythematous Neuro: Oriented X 3. No motor deficit. No sensory deficit. Course Course Course Narrative: diuresing 93% on NC has not been on NIPPV during her ED stay empiric ceftriaxone for possible COPD MDM - SOB/Dyspnea MDM Narrative Medical decision making narrative: 71 yo female with hx of PAF on xarelto, CHF, COPD on home O2, HLD, DM, obesity, HTN, MELANIE increased dyspnea x 5 days with signs of fluid overload and reported 5lb weight gain at this time labs, EKG, IV lasix, given hx of COPD will also give duo neb, IV steroids. Taken off CPAP on arrival. Dispo per results and findings Lab Data Result diagrams: 01/29/22 15:30 01/29/22 15:30 Labs: Lab Results 01/29/22 01/29/22 01/29/22 Range/Units 15:30 15:30 15:30 WBC 10.9 H (4.8-10.8) X10*3/uL RBC 3.57 L (4.20-5.50) X10*6/uL Hgb 11.2 L (12.0-16.0) g/dl Hct 34.4 L (37.0-47.0) % MCV 96.4 (80.0-98.0) fL MCH 31.4 (27.0-33.0) pg MCHC 32.6 (31.0-35.0) g/dl RDW 15.9 (11.0-16.0) % Plt Count 208 D (160-400) X10*3/uL MPV 9.0 L (9.4-12.3) fL Immature Gran % (Auto) 1.3 H (0.0-0.4) % Neut % (Auto) 76.2 H (45-73) % Lymph % (Auto) 11.7 L (20-40) % [place] % (Auto) 9.5 (2-11) % Eos % (Auto) 0.9 (0-4) % Baso % (Auto) 0.4 (0-2) % Lymph # (Auto) 1.3 (1.2-4.9) X10*3/uL [place] # (Auto) 1.0 (0.1-1.2) X10*3/uL Eos # (Auto) 0.1 (0.0-0.4) X10*3/uL Baso # (Auto) 0.0 (0.0-0.2) X10*3/uL Abs Immat Gran (auto) 0.14 H (0.00-0.03) X10*3/uL Absolute Neuts (auto) 8.3 (2.0-8.3) x10*3/uL Absolute Nucleated RBC 0.000 (0.0-0.012) X10*3/uL Nucleated RBC % (auto) 0.0 (0.0-0.2) /100WBC APTT 34.5 (24.1-38.0) SEC VBG pH (7.32-7.43) VBG pCO2 mmHg VBG pO2 mmHg VBG HCO3 (22-26) mmol/L VBG O2 Saturation % VBG Base Excess mmol/L Sodium 136 (135-145) mmol/L Potassium 3.0 L D (3.3-5.1) mmol/L Chloride 94 L (96-108) mmol/L Carbon Dioxide 30 H (22-29) mmol/L Anion Gap 15 (12-20) BUN 44 H (9-16) mg/dL Creatinine 1.35 (0.5-1.4) mg/dL Estim Creat Clear Calc 49.1 Estimated GFR 39 Random Glucose 159 H (60-115) mg/dL Lactic Acid (0.5-2.0) mmol/L Calcium 8.6 D (8.4-10.2) mg/dL Magnesium 2.2 (1.6-2.6) mg/dL Total Bilirubin 0.9 (0.0-1.0) mg/dL Direct Bilirubin 0.5 (0.0-0.5) mg/dL AST 31 (5-31) U/L ALT 17 (0-31) U/L Alkaline Phosphatase 133 H (39-117) U/L Troponin I High Sens (<3.5-17.0) ng/L B-Natriuretic Peptide (<100) pg/mL Total Protein 6.9 (6.5-8.0) g/dL Albumin 3.5 (3.5-5.0) g/dL Procalcitonin ng/mL COVID-19 ([facility]) (Negative) COVID-19 Clin Com 01/29/22 01/29/22 01/29/22 Range/Units 15:30 15:30 15:34 WBC (4.8-10.8) X10*3/uL RBC (4.20-5.50) X10*6/uL Hgb (12.0-16.0) g/dl Hct (37.0-47.0) % MCV (80.0-98.0) fL MCH (27.0-33.0) pg MCHC (31.0-35.0) g/dl RDW (11.0-16.0) % Plt Count (160-400) X10*3/uL MPV (9.4-12.3) fL Immature Gran % (Auto) (0.0-0.4) % Neut % (Auto) (45-73) % Lymph % (Auto) (20-40) % [place] % (Auto) (2-11) % Eos % (Auto) (0-4) % Baso % (Auto) (0-2) % Lymph # (Auto) (1.2-4.9) X10*3/uL [place] # (Auto) (0.1-1.2) X10*3/uL Eos # (Auto) (0.0-0.4) X10*3/uL Baso # (Auto) (0.0-0.2) X10*3/uL Abs Immat Gran (auto) (0.00-0.03) X10*3/uL Absolute Neuts (auto) (2.0-8.3) x10*3/uL Absolute Nucleated RBC (0.0-0.012) X10*3/uL Nucleated RBC % (auto) (0.0-0.2) /100WBC APTT (24.1-38.0) SEC VBG pH 7.50 H (7.32-7.43) VBG pCO2 46 mmHg VBG pO2 62 mmHg VBG HCO3 36 H (22-26) mmol/L VBG O2 Saturation 89.0 % VBG Base Excess 11.8 mmol/L Sodium (135-145) mmol/L Potassium (3.3-5.1) mmol/L Chloride (96-108) mmol/L Carbon Dioxide (22-29) mmol/L Anion Gap (12-20) BUN (9-16) mg/dL Creatinine (0.5-1.4) mg/dL Estim Creat Clear Calc Estimated GFR Random Glucose (60-115) mg/dL Lactic Acid (0.5-2.0) mmol/L Calcium (8.4-10.2) mg/dL Magnesium (1.6-2.6) mg/dL Total Bilirubin (0.0-1.0) mg/dL Direct Bilirubin (0.0-0.5) mg/dL AST (5-31) U/L ALT (0-31) U/L Alkaline Phosphatase (39-117) U/L Troponin I High Sens 27.8 H (<3.5-17.0) ng/L B-Natriuretic Peptide 432 H (<100) pg/mL Total Protein (6.5-8.0) g/dL Albumin (3.5-5.0) g/dL Procalcitonin 0.13 ng/mL COVID-19 ([facility]) (Negative) COVID-19 Clin Com 01/29/22 01/29/22 Range/Units 15:43 15:43 WBC (4.8-10.8) X10*3/uL RBC (4.20-5.50) X10*6/uL Hgb (12.0-16.0) g/dl Hct (37.0-47.0) % MCV (80.0-98.0) fL MCH (27.0-33.0) pg MCHC (31.0-35.0) g/dl RDW (11.0-16.0) % Plt Count (160-400) X10*3/uL MPV (9.4-12.3) fL Immature Gran % (Auto) (0.0-0.4) % Neut % (Auto) (45-73) % Lymph % (Auto) (20-40) % [place] % (Auto) (2-11) % Eos % (Auto) (0-4) % Baso % (Auto) (0-2) % Lymph # (Auto) (1.2-4.9) X10*3/uL [place] # (Auto) (0.1-1.2) X10*3/uL Eos # (Auto) (0.0-0.4) X10*3/uL Baso # (Auto) (0.0-0.2) X10*3/uL Abs Immat Gran (auto) (0.00-0.03) X10*3/uL Absolute Neuts (auto) (2.0-8.3) x10*3/uL Absolute Nucleated RBC (0.0-0.012) X10*3/uL Nucleated RBC % (auto) (0.0-0.2) /100WBC APTT (24.1-38.0) SEC VBG pH (7.32-7.43) VBG pCO2 mmHg VBG pO2 mmHg VBG HCO3 (22-26) mmol/L VBG O2 Saturation % VBG Base Excess mmol/L Sodium (135-145) mmol/L Potassium (3.3-5.1) mmol/L Chloride (96-108) mmol/L Carbon Dioxide (22-29) mmol/L Anion Gap (12-20) BUN (9-16) mg/dL Creatinine (0.5-1.4) mg/dL Estim Creat Clear Calc Estimated GFR Random Glucose (60-115) mg/dL Lactic Acid 1.6 (0.5-2.0) mmol/L Calcium (8.4-10.2) mg/dL Magnesium (1.6-2.6) mg/dL Total Bilirubin (0.0-1.0) mg/dL Direct Bilirubin (0.0-0.5) mg/dL AST (5-31) U/L ALT (0-31) U/L Alkaline Phosphatase (39-117) U/L Troponin I High Sens (<3.5-17.0) ng/L B-Natriuretic Peptide (<100) pg/mL Total Protein (6.5-8.0) g/dL Albumin (3.5-5.0) g/dL Procalcitonin ng/mL COVID-19 ([facility]) Negative (Negative) COVID-19 Clin Com See Note ECG Data Attestation: I personally reviewed and interpreted this ECG as follows: ECG interpretation date: 01/29/22 ECG interpretation time: 15:24 Interpretation: Rate: 117 Rhythm: afib with RVR [place]: normal decreased QRS ST T wave : no ABBIE nonspecific qTC: normal prior studies: no acute ischemia The study has been interpreted contemporaneously by me. . Discharge Plan Discharge Clinical Impression: Acute hypokalemia COPD (chronic obstructive pulmonary disease) Qualifiers: COPD type: COPD with acute exacerbation Qualified Code(s): J44.1 - Chronic obstructive pulmonary disease with (acute) exacerbation Congestive heart failure Qualifiers: Heart failure type: unspecified Heart failure chronicity: acute on chronic Qualified Code(s): I50.9 - Heart failure, unspecified Patient Disposition: Admitted As Inpatient
[2022-01-29] MEDS: Albuterol Sulfate (0.083%) 2.5 MG/3 ML VIAL.NEB INHALE (14:52)
[2022-01-29] MEDS: Albuterol/Iprat 2.5/0.5MG 3 ML AMPUL.NEB INHALE (14:52)
[2022-01-29 14:53] VITALS: PULSE 119; RESP 16; O2SAT 88
[2022-01-29 15:18] VITALS: BP 133/80; BP 138/78; PULSE 108; PULSE 115; RESP 20; TEMP 37; O2SAT 93; O2SAT 97; BMI 47.2
[2022-01-29 15:24] VITALS: BP 122/65; PULSE 110; RESP 22; TEMP 36.8; O2SAT 90
[2022-01-29] MEDS: methylPREDNISolone Sod Succ 125 MG/2 ML VIAL IVPUSH (15:32)
[2022-01-29] MEDS: Furosemide 40 MG/4 ML VIAL IVPUSH (15:32)
[2022-01-29 15:34] LABS: MANUAL DIFF FLAG NO
[2022-01-29 15:37] LABS: Basophils Percent Auto 0.4 % (0-2); Eosinophils Absolute Auto 0.1 X10*3/uL (0.0-0.4); Eosinophils Percent Auto 0.9 % (0-4); Hematocrit 34.4 % (37.0-47.0); Hemoglobin 11.2 g/dl (12.0-16.0); Imm Gran Abs Auto 0.14 X10*3/uL (0.00-0.03); Imm Gran Pct Auto 1.3 % (0.0-0.4); Lymphocytes Absolute Auto 1.3 X10*3/uL (1.2-4.9); Lymphocytes Percent Auto 11.7 % (20-40); Mean Corpuscular HGB Conc 32.6 g/dl (31.0-35.0); Mean Corpuscular Hemoglobin 31.4 pg (27.0-33.0); Mean Corpuscular Volume 96.4 fL (80.0-98.0); Monocytes Percent Auto 9.5 % (2-11); Neutrophils Absolute Auto 8.3 x10*3/uL (2.0-8.3); Neutrophils Percent Auto 76.2 % (45-73); Platelet Count 208 X10*3/uL (160-400); Red Blood Count 3.57 X10*6/uL (4.20-5.50); Red Cell Distribution Width 15.9 % (11.0-16.0); White Blood Count 10.9 X10*3/uL (4.8-10.8)
[2022-01-29 15:39] LABS: Venous Blood Gas Refer to POC result
[2022-01-29 15:41] LABS: VBG Base Excess 11.8 mmol/L; VBG HCO3 36 mmol/L (22-26); VBG pCO2 46 mmHg; VBG pO2 62 mmHg
[2022-01-29 15:49] LABS: Partial Thromboplastin Time 34.5 SEC (24.1-38.0)
[2022-01-29 15:52] LABS: Alanine Aminotransferase 17 U/L (0-31); Albumin Level 3.5 g/dL (3.5-5.0); Alkaline Phosphatase 133 U/L (39-117); Anion Gap 15 (12-20); Aspartate Amino Transferase 31 U/L (5-31); Bilirubin Direct 0.5 mg/dL (0.0-0.5); Bilirubin Total 0.9 mg/dL (0.0-1.0); Blood Urea Nitrogen 44 mg/dL (9-16); Calcium 8.6 mg/dL (8.4-10.2); Carbon Dioxide 30 mmol/L (22-29); Chloride 94 mmol/L (96-108); Creatinine Clr Calc Pharmacy 49.1; Estimated Glomerular Filt Rate 39; Glucose Random 159 mg/dL (60-115); Magnesium 2.2 mg/dL (1.6-2.6); Sodium 136 mmol/L (135-145); Total Protein 6.9 g/dL (6.5-8.0)
[2022-01-29] MEDS: cefTRIAXone sodium 1 GM in 0.9 % Sodium Chloride 50 ML IV (15:52)
[2022-01-29 15:58] LABS: B Type Natriuretic Peptide 432 pg/mL (<100); Troponin-I High Sensitivity 27.8 ng/L (<3.5-17.0)
[2022-01-29 16:02] LABS: Lactic Acid 1.6 mmol/L (0.5-2.0)
--- NOTE | 2022-01-29 16:04 | PHA.MEDREC ---
Pharmacy Consult ? Medication Reconciliation Pharmacy has completed the medication reconciliation. Patient had a list with her of all her current medications. Patient said she took all her morning pills this morning but could not confirm which medications, but she did admit to not taking her insulin today. Patient has recently discontinued Jardiance.
[2022-01-29 16:05] LABS: COVID-19 Test Negative (Negative); IDNOW Serial# 16C4AD1C
[2022-01-29 16:10] LABS: Procalcitonin 0.13 ng/mL
[2022-01-29] MEDS: Potassium Chloride ER 20 MEQ TAB.ER.PRT 40 MEQ PO (16:35)
[2022-01-29] MEDS: Potassium Chloride/H20 10 MEQ/100 ML PIGGYBACK 100 MEQ IV (16:38)
--- NOTE | 2022-01-29 16:53 | PM.IMHP ---
History of Present Illness Date of Service: 01/29/22 Chief Complaint: Shortness of breath, lower extremities edema A 71 years old lady with PMH of CHF, AFib, diabetes, morbid obesity, chronic hypoxic failure on 2 L, COPD, MELANIE on CPAP who presents to the hospital with a complaint of worsening shortness of breath and lower extremity edema for the last 5 days. The patient reports that she has been noticing increase in her weight and worsening edema in her lower extremities for the last few weeks. She reports taking her medications as prescribed and making good amount of urine but notices that her movement became more difficult as she is feeling dyspneic and having difficulties standing up. Denies any chest pain, palpitation, nausea, vomiting, change in bowel habit or urinary symptoms. No fever or chills reported. In the emergency she was noted to have hypoxia requiring oxygen supplement to be increased 4 L. CXR showing evidence of fluid overload. Lobes potassium level of 3. Will be admitted for further evaluation and treatment. 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 Mother No problems noted. Brother No problems noted. Son No problems noted. Other Substance use disorder Surgical History History of colectomy (~1983) History of colonoscopy History of hernia repair (~07/2011) History of hysteroscopy (~2007) History of left breast biopsy (~04/09/11) History of left inguinal hernia repair (~01/28/20) Social History Household Members: None Housing: Apartment Do you presently have visiting nurse or other home services: No Alcohol intake: never Patient Tobacco Use Status: Former Tobacco user Use of substances other than those prescribed or required for medical reasons: No Advance Directives: Yes Advance Directives Information Provided: No Advance Directives on File: No Advance Directives Date on File: 02/09/21 service: No Current occupational status: retired Meds Allergies Allergy/AdvReac Type Severity Reaction Status Date / Time oxycodone [Percocet] Allergy Unknown nausea and Verified 12/10/21 07:59 vomiting Active Medications: Current Medications Insulin Human Lispro (Insulin Lispro 100 Unit/Ml 3 Ml Vial) [facility] Protocol Metolazone (Metolazone 5 Mg Tablet) 5 mg PO ONCE ONE Stop: 01/29/22 16:48 Pharmacy Consult (Consult Rx Perform Med Rec) 1 each MISCELLANE ONCE PRN PRN Reason: Consult order Home Medications Medication Instructions Recorded Confirmed Last Taken Type cholecalciferol (vitamin D3) 25 25 mcg PO DAILY 04/24/20 01/29/22 02/07/21 History mcg (1,000 unit) capsule vitamin B complex 1 tab PO DAILY 04/24/20 01/29/22 02/07/21 History zinc acetate 50 mg (zinc) capsule 50 mg PO DAILY 04/24/20 01/29/22 02/07/21 History multivitamin 1 tab PO DAILY 06/13/20 01/29/22 02/07/21 History ferrous sulfate 325 mg (65 mg 325 mg PO DAILY 09/14/20 01/29/22 02/07/21 History iron) tablet (Feosol) potassium chloride 20 mEq 20 meq PO TID 03/23/21 01/29/22 Unknown History tablet,extended release(part/cryst) docusate sodium 100 mg capsule 100 mg PO DAILY 05/31/21 01/29/22 Unknown History (Colace) allopurinol 100 mg tablet 100 mg PO DAILY 09/24/21 01/29/22 Unknown History insulin glargine 100 unit/mL (3 30 unit subcut DAILY 12/10/21 01/29/22 Unknown History mL) subcutaneous pen insulin aspart U-100 100 unit/mL 20 unit subcut TID 01/29/22 01/29/22 Unknown History (3 mL) subcutaneous pen (Novolog Flexpen U-100 Insulin aspart) Physical Exam Vital Signs and Narrative: Vital Signs: Last Vital Signs Temp 98.2 F 01/29/22 15:24 Pulse 110 H 01/29/22 15:24 Resp 22 H 01/29/22 15:24 BP 122/65 01/29/22 15:24 Pulse Ox 90 L 01/29/22 15:24 O2 Del Method 01/29/22 15:24 O2 Flow Rate 4 01/29/22 15:24 Oxygen Flow Rate 4 01/29/22 15:18 BMI result Body Mass Index 47.2 Const: Other: Constitutional : Alert, oriented, not in distress Neck : Normal inspection, Supple Cardiovascular : RRR, no JVP, +2 bilateral lower extremity edema Respiratory : fair bilateral air entry, no crackles, wheezes or rhonchi Gastrointestinal: soft, lax, Normal bowel sounds, Non tender Skin : Warm, Dry, lower extremities erythema with no warmth, small macules Neurological : Alert & oriented x3, No focal deficit , CN 2-12 within normal Results Labs CBC and Chem 7: 01/29/22 15:30 01/29/22 15:30 Labs: Laboratory Results - last 24 hr 01/29/22 01/29/22 01/29/22 15:30 15:30 15:30 MCV 96.4 MCH 31.4 MCHC 32.6 RDW 15.9 Plt Count 208 D MPV 9.0 L Immature Gran % (Auto) 1.3 H Neut % (Auto) 76.2 H Lymph % (Auto) 11.7 L [place] % (Auto) 9.5 Eos % (Auto) 0.9 Baso % (Auto) 0.4 Lymph # (Auto) 1.3 [place] # (Auto) 1.0 Eos # (Auto) 0.1 Baso # (Auto) 0.0 Abs Immat Gran (auto) 0.14 H Absolute Neuts (auto) 8.3 Absolute Nucleated RBC 0.000 Nucleated RBC % (auto) 0.0 APTT 34.5 VBG pH VBG pCO2 VBG pO2 VBG HCO3 VBG O2 Saturation VBG Base Excess Anion Gap 15 Estim Creat Clear Calc 49.1 Estimated GFR 39 Random Glucose 159 H Lactic Acid Calcium 8.6 D Magnesium 2.2 Total Bilirubin 0.9 Direct Bilirubin 0.5 AST 31 ALT 17 Alkaline Phosphatase 133 H Troponin I High Sens B-Natriuretic Peptide Total Protein 6.9 Albumin 3.5 Procalcitonin COVID-19 ([facility]) COVID-19 [employer] Com 01/29/22 01/29/22 01/29/22 15:30 15:30 15:34 MCV MCH MCHC RDW Plt Count MPV Immature Gran % (Auto) Neut % (Auto) Lymph % (Auto) [place] % (Auto) Eos % (Auto) Baso % (Auto) Lymph # (Auto) [place] # (Auto) Eos # (Auto) Baso # (Auto) Abs Immat Gran (auto) Absolute Neuts (auto) Absolute Nucleated RBC Nucleated RBC % (auto) APTT VBG pH 7.50 H VBG pCO2 46 VBG pO2 62 VBG HCO3 36 H VBG O2 Saturation 89.0 VBG Base Excess 11.8 Anion Gap Estim Creat Clear Calc Estimated GFR Random Glucose Lactic Acid Calcium Magnesium Total Bilirubin Direct Bilirubin AST ALT Alkaline Phosphatase Troponin I High Sens 27.8 H B-Natriuretic Peptide 432 H Total Protein Albumin Procalcitonin 0.13 COVID-19 ([facility]) COVID-19 [place] 01/29/22 01/29/22 15:43 15:43 MCV MCH MCHC RDW Plt Count MPV Immature Gran % (Auto) Neut % (Auto) Lymph % (Auto) [place] % (Auto) Eos % (Auto) Baso % (Auto) Lymph # (Auto) [place] # (Auto) Eos # (Auto) Baso # (Auto) Abs Immat Gran (auto) Absolute Neuts (auto) Absolute Nucleated RBC Nucleated RBC % (auto) APTT VBG pH VBG pCO2 VBG pO2 VBG HCO3 VBG O2 Saturation VBG Base Excess Anion Gap Estim Creat Clear Calc Estimated GFR Random Glucose Lactic Acid 1.6 Calcium Magnesium Total Bilirubin Direct Bilirubin AST ALT Alkaline Phosphatase Troponin I High Sens B-Natriuretic Peptide Total Protein Albumin Procalcitonin COVID-19 ([facility]) Negative COVID-19 [place] See Note Imaging Radiologist's Impressions: Impressions Chest X-Ray 01/29/22 15:53 IMPRESSION: Mild congestive change. Assessment and Plan (1) Congestive heart failure: Qualifiers: Heart failure chronicity: acute on chronic Heart failure type: unspecified Qualified Code(s): I50.9 - Heart failure, unspecified Status: Acute (2) Acute hypokalemia: Status: Acute (3) Persistent atrial fibrillation: Status: Acute Plan A 71 years old lady with PMH of CHF, AFib, diabetes, morbid obesity, chronic hypoxic failure on 2 L, COPD, MELANIE on CPAP who presents to the hospital with a complaint of worsening shortness of breath and lower extremity edema for the last 5 days. Acute on chronic hypoxic respiratory failure Secondary to diastolic CHF exacerbation Elevated BNP CXR showing fluid overload Start Bumex drip Metolazone Monitor intake and output next [place] get cardiology evaluation Atrial fibrillation with RVR Likely secondary to CHF exacerbation Not on any rate control medications Heart rate in 110s to 120s Avoid pb blockers with acute CHF Continue Xarelto To get cardiology evaluation Hypokalemia Potassium of 3 patient on daily potassium replacement to give extra doses was on Bumex drip Type 2 diabetes next [place] diabetic diet SSI, continue home dose Lantus DVT PPX Xarelto The patient will need to overnight hospital stay for evaluation and treatment of acute hypoxic failure, CHF exacerbation and AFib with RVR to prevent possible decompensation. Quality Stroke Does the patient have a stroke diagnosis?: No VTE Prior VTE?: No VTE Risk Level:: Medical - moderate - high VTE Device Contraindication: Treatment Not Indicated VTE Drug Contraindication: N/A - Med Ordered
[2022-01-29] MEDS: Potassium Chloride Packet 20 MEQ PACKET 40 MEQ PO ×2 (18:11→22:03)
[2022-01-29] MEDS: metOLazone 5 MG TABLET PO (18:21)
[2022-01-29 18:45] LABS: Glucose, Whole Blood 135 mg/dL (60-115)
[2022-01-29 21:32] LABS: Glucose, Whole Blood 481 mg/dL (60-115)
[2022-01-29] MEDS: Potassium Chloride ER 20 MEQ TAB.ER.PRT PO (22:01)
[2022-01-29] MEDS: Pravastatin Sodium 20 MG TABLET PO (22:01)
[2022-01-29] MEDS: Gabapentin 300 MG CAPSULE PO (22:01)
[2022-01-29] MEDS: Insulin Lispro 100 UNIT/ML 3 ML VIAL SUBCUT (22:03)
[2022-01-29 22:34] VITALS: BP 127/68; PULSE 103; RESP 22; TEMP 36.8; O2SAT 91
[2022-01-30] VITALS (10 sets, daily range): BP systolic 100–138; BP diastolic 51–83; PULSE 81–110; RESP 16–20; TEMP 36.6–37.2; O2SAT 87–96; BMI 31.1
--- NOTE | 2022-01-30 00:53 | PC.NURSE ---
I assumed nursing care of Ragini at 1900. She is being admitted to the hospital for SOB/LE edema. She has been alert, oriented x 3, calm and cooperative, makes eye contact with staff and is able to adequately verbalize her needs. Ragini has remaiend on 2L nasal cannula with sat's 88-91%, RR 22-26, noticeably short of breath when talking a lot. Patient was moved from ER stretcher to hospital bed, PM meds were given and pt was transported upstairs to inpatient bed assignment.
[2022-01-30] MEDS: 0.9 % Sodium Chloride Flush 3 ML SYRINGE IVFLUSH ×3 (01:07→22:52)
[2022-01-30 05:57] LABS: Hematocrit 34.4 % (37.0-47.0); Hemoglobin 11.2 g/dl (12.0-16.0); Mean Corpuscular HGB Conc 32.6 g/dl (31.0-35.0); Mean Corpuscular Volume 95.3 fL (80.0-98.0); Mean Platelet Volume 9.1 fL (9.4-12.3); Platelet Count 193 X10*3/uL (160-400); Red Blood Count 3.61 X10*6/uL (4.20-5.50); Red Cell Distribution Width 15.9 % (11.0-16.0); White Blood Count 8.2 X10*3/uL (4.8-10.8)
[2022-01-30 06:18] LABS: Anion Gap 12 (12-20); Blood Urea Nitrogen 45 mg/dL (9-16); Calcium 8.6 mg/dL (8.4-10.2); Carbon Dioxide 33 mmol/L (22-29); Chloride 94 mmol/L (96-108); Creatinine Clr Calc Pharmacy 37.7; Estimated Glomerular Filt Rate 37; Potassium 3.8 mmol/L (3.3-5.1); Sodium 135 mmol/L (135-145)
[2022-01-30 06:20] LABS: B Type Natriuretic Peptide 725 pg/mL (<100)
[2022-01-30 06:35] LABS: Glucose Random 416 mg/dL (60-115)
[2022-01-30] MEDS: Insulin Lispro 100 UNIT/ML 3 ML VIAL SUBCUT ×4 (06:48→22:51)
[2022-01-30 07:25] LABS: Glucose, Whole Blood 344 mg/dL (60-115)
--- NOTE | 2022-01-30 08:38 | MHC.CM.PN ---
CM met with Patient at bedside and addressed IMM with her, providing her with the original and placing a copy on the chart. 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 Home/resume said services is the plan and CM HAS INITIATED AND will follow for dc planning.Patient received [facility]/COVID VAX & [address] BOOSTER [address] Herber Lara.
[2022-01-30] MEDS: Gabapentin 300 MG CAPSULE PO ×3 (09:04→22:51)
[2022-01-30] MEDS: Docusate Sodium 100 MG CAPSULE PO (09:04)
[2022-01-30] MEDS: Cholecalciferol (Vitamin D3) 25 MCG TABLET PO (09:04)
[2022-01-30] MEDS: metOLazone 5 MG TABLET PO (09:04)
[2022-01-30] MEDS: allopurinoL 100 MG TABLET PO (09:04)
[2022-01-30] MEDS: Rivaroxaban 15 MG TABLET PO (09:04)
[2022-01-30] MEDS: Insulin Glargine,Hum.rec.anlog 100 UNIT/ML 10 ML VIAL 35 UNIT SUBCUT (09:04)
[2022-01-30] MEDS: Potassium Chloride ER 20 MEQ TAB.ER.PRT PO ×3 (09:04→22:51)
[2022-01-30] MEDS: Multivitamin TABLET 1 TAB PO (09:04)
[2022-01-30] MEDS: Bumetanide 25 MG in Container,Empty 0 ML IVCONT (11:12)
[2022-01-30 11:18] LABS: Glucose, Whole Blood 348 mg/dL (60-115)
--- NOTE | 2022-01-30 14:34 | P.PNIM_ITS ---
Subjective Subjective Date of Service: 01/30/22 Interval History: feels mild improvement since admission Still having significant lower extremities edema No reported other overnight events Review of Systems No fever, chills but reports generalized weakness No chest pain, palpitation , having lower extremities edema Increased dyspnea on exertion, PNDs No abdominal pain, nausea or vomiting No urinary symptoms Lower extremities erythema Physical Exam Vital Signs: Vital Signs: Last Vital Signs Temp 97.8 F 01/30/22 11:39 Pulse 103 H 01/30/22 11:39 Resp 19 01/30/22 11:39 BP 110/66 01/30/22 11:39 Pulse Ox 90 L 01/30/22 11:39 O2 Del Method 01/30/22 11:39 O2 Flow Rate 3 01/30/22 11:39 Oxygen Flow Rate 4 01/29/22 15:18 BMI result Body Mass Index 31.1 Const: Other: Constitutional : Alert, oriented, not in distress Neck : Normal inspection, Supple Cardiovascular : RRR, no JVP, +2 bilateral lower extremity edema Respiratory : fair bilateral air entry, no crackles, wheezes or rhonchi Gastrointestinal: soft, lax, Normal bowel sounds, Non tender Skin : Warm, Dry, lower extremities erythema with no warmth, small macules Neurological : Alert & oriented x3, No focal deficit , CN 2-12 within normal Objective Data Active Medications Acetaminophen (Acetaminophen 325 Mg Tablet) 650 mg PO Q6H PRN PRN Reason: Pain, Mild (Pain Scale 1-3) Albuterol Sulfate (Albuterol Sulfate 90 Mcg 8 Gm Inhaler) 2 puff INHALE Q6H PRN PRN Reason: shortness of breath or wheezing Allopurinol (Allopurinol 100 Mg Tablet) 100 mg PO DAILY [facility] Last Admin: 01/30/22 09:04 Dose: 100 mg Documented By: KATELYN Docusate Sodium (Docusate Sodium 100 Mg Capsule) 100 mg PO DAILY [facility] Last Admin: 01/30/22 09:04 Dose: 100 mg Documented By: KATELYN Gabapentin (Gabapentin 300 Mg Capsule) 300 mg PO TID [facility] Last Admin: 01/30/22 09:04 Dose: 300 mg Documented By: KATELYN Bumetanide 25 mg/ IV (Miscellaneous Supplies) 100 mls @ 1 mls/hr IVCONT .Q24H [facility] Last Admin: 01/30/22 11:12 Dose: 0.25 mg/hr, 1 mls/hr Documented By: KATELYN Insulin Glargine (Insulin Glargine,Hum.Rec.Anlog 100 Unit/Ml 10 Ml Vial) 35 unit SUBCUT DAILY [facility] Last Admin: 01/30/22 09:04 Dose: 35 unit Documented By: KATELYN Insulin Human Lispro (Insulin Lispro 100 Unit/Ml 3 Ml Vial) 0 unit SUBCUT QIDACHS [facility]; Protocol Last Admin: 01/30/22 11:18 Dose: 8 unit Documented By: KATELYN Metolazone (Metolazone 5 Mg Tablet) 5 mg PO DAILY [facility] Last Admin: 01/30/22 09:04 Dose: 5 mg Documented By: KATELYN Multivitamins/Vitamin C (Multivitamin Tablet) 1 tab PO DAILY [facility] Last Admin: 01/30/22 09:04 Dose: 1 tab Documented By: KATELYN Ondansetron HCl (Ondansetron Hcl 4 Mg/2 Ml Vial) 4 mg IVPUSH Q8H PRN PRN Reason: Nausea and Vomiting Pharmacy Consult (Consult Rx Perform Med Rec) 1 each MISCELLANE ONCE PRN PRN Reason: Consult order Potassium Chloride (Potassium Chloride Er 20 Meq Tab.Er.Prt) 20 meq PO TID [facility] Last Admin: 01/30/22 09:04 Dose: 20 meq Documented By: KATELYN Pravastatin Sodium (Pravastatin Sodium 20 Mg Tablet) 20 mg PO BEDTIME [facility] Last Admin: 01/29/22 22:01 Dose: 20 mg Documented By: TANA Psyllium Hydrophilic Mucilloid (Psyllium Seed 3.4 Gm Powd.Pack) 3.4 gm PO DAILY [facility] Last Admin: 01/30/22 12:28 Dose: 3.4 gm Documented By: NGENOAL Rivaroxaban (Rivaroxaban 15 Mg Tablet) 15 mg PO DAILY [facility] Last Admin: 01/30/22 09:04 Dose: 15 mg Documented By: KATELYN Sodium Chloride (0.9 % Sodium Chloride Flush 3 Ml Syringe) [facility] Last Admin: 01/30/22 09:05 Dose: 3 ml Documented By: KATELYN Spironolactone (Spironolactone 25 Mg Tablet) 25 mg PO DAILY [facility]; Protocol Last Admin: 01/30/22 09:05 Dose: Not Given Documented By: KATELYN Non-Admin Reason: Physician Held Med Tiotropium [place] (Tiotropium [place] 18 Mcg Cap.W.Dev) 1 puff INHALE RDAILY [facility] Last Admin: 01/30/22 11:40 Dose: 1 puff Documented By: NAHID Vitamin D (Cholecalciferol (Vitamin D3) 25 Mcg Tablet) 25 mcg PO DAILY [facility] Last Admin: 01/30/22 09:04 Dose: 25 mcg Documented By: KATELYN Labs CBC & Chem 7: 01/30/22 05:38 01/30/22 05:38 Labs: Laboratory Results - last 24 hr 01/29/22 01/29/22 01/29/22 15:30 15:30 15:30 MCV 96.4 MCH 31.4 MCHC 32.6 RDW 15.9 Plt Count 208 D MPV 9.0 L Immature Gran % (Auto) 1.3 H Neut % (Auto) 76.2 H Lymph % (Auto) 11.7 L [place] % (Auto) 9.5 Eos % (Auto) 0.9 Baso % (Auto) 0.4 Lymph # (Auto) 1.3 [place] # (Auto) 1.0 Eos # (Auto) 0.1 Baso # (Auto) 0.0 Abs Immat Gran (auto) 0.14 H Absolute Neuts (auto) 8.3 Absolute Nucleated RBC 0.000 Nucleated RBC % (auto) 0.0 APTT 34.5 VBG pH VBG pCO2 VBG pO2 VBG HCO3 VBG O2 Saturation VBG Base Excess Anion Gap 15 Estim Creat Clear Calc 49.1 Estimated GFR 39 POC Glucose Random Glucose 159 H Lactic Acid Calcium 8.6 D Magnesium 2.2 Total Bilirubin 0.9 Direct Bilirubin 0.5 AST 31 ALT 17 Alkaline Phosphatase 133 H Troponin I High Sens B-Natriuretic Peptide Total Protein 6.9 Albumin 3.5 Procalcitonin COVID-19 ([facility]) COVID-19 Clin Com 01/29/22 01/29/22 01/29/22 15:30 15:30 15:34 MCV MCH MCHC RDW Plt Count MPV Immature Gran % (Auto) Neut % (Auto) Lymph % (Auto) [place] % (Auto) Eos % (Auto) Baso % (Auto) Lymph # (Auto) [place] # (Auto) Eos # (Auto) Baso # (Auto) Abs Immat Gran (auto) Absolute Neuts (auto) Absolute Nucleated RBC Nucleated RBC % (auto) APTT VBG pH 7.50 H VBG pCO2 46 VBG pO2 62 VBG HCO3 36 H VBG O2 Saturation 89.0 VBG Base Excess 11.8 Anion Gap Estim Creat Clear Calc Estimated GFR POC Glucose Random Glucose Lactic Acid Calcium Magnesium Total Bilirubin Direct Bilirubin AST ALT Alkaline Phosphatase Troponin I High Sens 27.8 H B-Natriuretic Peptide 432 H Total Protein Albumin Procalcitonin 0.13 COVID-19 ([facility]) COVID-19 Clin Com 01/29/22 01/29/22 01/29/22 15:43 15:43 18:28 MCV MCH MCHC RDW Plt Count MPV Immature Gran % (Auto) Neut % (Auto) Lymph % (Auto) [place] % (Auto) Eos % (Auto) Baso % (Auto) Lymph # (Auto) [place] # (Auto) Eos # (Auto) Baso # (Auto) Abs Immat Gran (auto) Absolute Neuts (auto) Absolute Nucleated RBC Nucleated RBC % (auto) APTT VBG pH VBG pCO2 VBG pO2 VBG HCO3 VBG O2 Saturation VBG Base Excess Anion Gap Estim Creat Clear Calc Estimated GFR POC Glucose 135 H Random Glucose Lactic Acid 1.6 Calcium Magnesium Total Bilirubin Direct Bilirubin AST ALT Alkaline Phosphatase Troponin I High Sens B-Natriuretic Peptide Total Protein Albumin Procalcitonin COVID-19 ([facility]) Negative COVID-19 [facility] Com See Note 01/29/22 01/30/22 01/30/22 21:28 05:38 05:38 MCV 95.3 MCH 31.0 MCHC 32.6 RDW 15.9 Plt Count 193 MPV 9.1 L Immature Gran % (Auto) Neut % (Auto) Lymph % (Auto) [place] % (Auto) Eos % (Auto) Baso % (Auto) Lymph # (Auto) [place] # (Auto) Eos # (Auto) Baso # (Auto) Abs Immat Gran (auto) Absolute Neuts (auto) Absolute Nucleated RBC 0.000 Nucleated RBC % (auto) 0.0 APTT VBG pH VBG pCO2 VBG pO2 VBG HCO3 VBG O2 Saturation VBG Base Excess Anion Gap Estim Creat Clear Calc Estimated GFR POC Glucose 481 H* Random Glucose Lactic Acid Calcium Magnesium Total Bilirubin Direct Bilirubin AST ALT Alkaline Phosphatase Troponin I High Sens B-Natriuretic Peptide 725 H Total Protein Albumin Procalcitonin COVID-19 ([facility]) COVID-19 [employer] 01/30/22 01/30/22 01/30/22 05:38 07:21 11:14 MCV MCH MCHC RDW Plt Count MPV Immature Gran % (Auto) Neut % (Auto) Lymph % (Auto) [place] % (Auto) Eos % (Auto) Baso % (Auto) Lymph # (Auto) [place] # (Auto) Eos # (Auto) Baso # (Auto) Abs Immat Gran (auto) Absolute Neuts (auto) Absolute Nucleated RBC Nucleated RBC % (auto) APTT VBG pH VBG pCO2 VBG pO2 VBG HCO3 VBG O2 Saturation VBG Base Excess Anion Gap 12 Estim Creat Clear Calc 37.7 Estimated GFR 37 POC Glucose 344 H 348 H Random Glucose 416 H* Lactic Acid Calcium 8.6 Magnesium Total Bilirubin Direct Bilirubin AST ALT Alkaline Phosphatase Troponin I High Sens B-Natriuretic Peptide Total Protein Albumin Procalcitonin COVID-19 ([facility]) COVID-19 [employer] Assessment and Plan (1) Congestive heart failure: Status: Acute (2) Acute hypokalemia: Status: Acute (3) Supplemental oxygen dependent: Status: Acute Plan A 71 years old lady with PMH of CHF, AFib, diabetes, morbid obesity, chronic hypoxic failure on 2 L, COPD, MELANIE on CPAP who presents to the hospital with a complaint of worsening shortness of breath and lower extremity edema for the last 5 days. Acute on chronic hypoxic respiratory failure Secondary to diastolic CHF exacerbation Elevated BNP CXR showing fluid overload continue Bumex drip Metolazone 5 mg daily Monitor intake and output Atrial fibrillation with RVR Likely secondary to CHF exacerbation Not on any rate control medications Heart rate in 100s to 120s Avoid pb blockers with acute CHF Continue Xarelto pending cardiology evaluation Hypokalemia Potassium of 3 patient on daily potassium replacement to give extra doses was on Bumex drip Type 2 diabetes with hyperglycemia diabetic diet SSI, Increase home dose Lantus DVT PPX Xarelto The patient will need to overnight hospital stay for evaluation and treatment of acute hypoxic failure, CHF exacerbation and AFib with RVR to prevent possible decompensation. Quality Stroke Does the patient have a stroke diagnosis?: No VTE Prior VTE?: No VTE Risk Level:: Medical - moderate - high VTE Device Contraindication: Treatment Not Indicated VTE Drug Contraindication: N/A - Med Ordered
[2022-01-30 15:50] LABS: Glucose, Whole Blood 289 mg/dL (60-115)
--- NOTE | 2022-01-30 15:59 | PM.CNCAR ---
History of Present Illness History of Present Illness Date of Service: 01/30/22 Requesting physician: Codey Haines Chief complaint: SOB, edema Narrative: 71-year-old female who has known history of diastolic heart failure previously presenting with right more than left-sided heart failure, atrial fibrillation, diabetes, morbid obesity, chronic hypoxic respiratory failure with 2 L nasal cannula oxygen supplementation, COPD and obstructive sleep apnea on CPAP. She is presenting with lower extremity edema and shortness of breath progressive over many weeks to months. She said she continued to gain weight and decided to come to the emergency department. Reports that she was taking her medications and was taking extra doses but there was no urine output. Short of breath and quite distressed. No chest discomfort. In AFib with RVR. Has been started on Bumex drip. 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 Mother No problems noted. Brother No problems noted. Son No problems noted. Other Substance use disorder Surgical History Surgical History History of colectomy (~1983) History of colonoscopy History of hernia repair (~07/2011) History of hysteroscopy (~2007) History of left breast biopsy (~04/09/11) History of left inguinal hernia repair (~01/28/20) Social History Social History Household Members: None Housing: Apartment Do you presently have visiting nurse or other home services: Yes ([facility] - showers X2 weekly. Someone else does laundry and shopping.) Alcohol intake: never Patient Tobacco Use Status: Former Tobacco user Advance Directives Date on File: 02/09/21 service: No Current occupational status: retired Meds Allergies Allergy/AdvReac Type Severity Reaction Status Date / Time oxycodone [Percocet] Allergy Unknown nausea and Verified 12/10/21 07:59 vomiting Active Medications: Current Medications Acetaminophen (Acetaminophen 325 Mg Tablet) 650 mg PO Q6H PRN PRN Reason: Pain, Mild (Pain Scale 1-3) Albuterol Sulfate (Albuterol Sulfate 90 Mcg 8 Gm Inhaler) 2 puff INHALE Q6H PRN PRN Reason: shortness of breath or wheezing Allopurinol (Allopurinol 100 Mg Tablet) 100 mg PO DAILY [facility] Last Admin: 01/30/22 09:04 Dose: 100 mg Docusate Sodium (Docusate Sodium 100 Mg Capsule) 100 mg PO DAILY [facility] Last Admin: 01/30/22 09:04 Dose: 100 mg Gabapentin (Gabapentin 300 Mg Capsule) 300 mg PO TID [facility] Last Admin: 01/30/22 09:04 Dose: 300 mg Bumetanide 25 mg/ IV (Miscellaneous Supplies) 100 mls @ 1 mls/hr IVCONT .Q24H [facility] Last Admin: 01/30/22 11:12 Dose: 0.25 mg/hr, 1 mls/hr Insulin Glargine (Insulin Glargine,Hum.Rec.Anlog 100 Unit/Ml 10 Ml Vial) 35 unit SUBCUT DAILY [facility] Last Admin: 01/30/22 09:04 Dose: 35 unit Insulin Human Lispro (Insulin Lispro 100 Unit/Ml 3 Ml Vial) 0 unit SUBCUT QIDACHS [facility]; Protocol Last Admin: 01/30/22 11:18 Dose: 8 unit Metolazone (Metolazone 5 Mg Tablet) 5 mg PO DAILY [facility] Last Admin: 01/30/22 09:04 Dose: 5 mg Multivitamins/Vitamin C (Multivitamin Tablet) 1 tab PO DAILY [facility] Last Admin: 01/30/22 09:04 Dose: 1 tab Ondansetron HCl (Ondansetron Hcl 4 Mg/2 Ml Vial) 4 mg IVPUSH Q8H PRN PRN Reason: Nausea and Vomiting Pharmacy Consult (Consult Rx Perform Med Rec) 1 each MISCELLANE ONCE PRN PRN Reason: Consult order Potassium Chloride (Potassium Chloride Er 20 Meq Tab.Er.Prt) 20 meq PO TID [facility] Last Admin: 01/30/22 09:04 Dose: 20 meq Pravastatin Sodium (Pravastatin Sodium 20 Mg Tablet) 20 mg PO BEDTIME [facility] Last Admin: 01/29/22 22:01 Dose: 20 mg Psyllium Hydrophilic Mucilloid (Psyllium Seed 3.4 Gm Powd.Pack) 3.4 gm PO DAILY [facility] Last Admin: 01/30/22 12:28 Dose: 3.4 gm Rivaroxaban (Rivaroxaban 15 Mg Tablet) 15 mg PO DAILY [facility] Last Admin: 01/30/22 09:04 Dose: 15 mg Sodium Chloride (0.9 % Sodium Chloride Flush 3 Ml Syringe) 3 ml IVFLUSH QSHIFT [facility] Last Admin: 01/30/22 09:05 Dose: 3 ml Spironolactone (Spironolactone 25 Mg Tablet) 25 mg PO DAILY [facility]; Protocol Last Admin: 01/30/22 09:05 Dose: Not Given Tiotropium [place] (Tiotropium [place] 18 Mcg Cap.W.Dev) 1 puff INHALE RDAILY [facility] Last Admin: 01/30/22 11:40 Dose: 1 puff Vitamin D (Cholecalciferol (Vitamin D3) 25 Mcg Tablet) 25 mcg PO DAILY [facility] Last Admin: 01/30/22 09:04 Dose: 25 mcg Home Medications Medication Instructions Recorded Confirmed Last Taken Type cholecalciferol (vitamin D3) 25 25 mcg PO DAILY 04/24/20 01/29/22 02/07/21 History mcg (1,000 unit) capsule vitamin B complex 1 tab PO DAILY 04/24/20 01/29/22 02/07/21 History zinc acetate 50 mg (zinc) capsule 50 mg PO DAILY 04/24/20 01/29/22 02/07/21 History multivitamin 1 tab PO DAILY 06/13/20 01/29/22 02/07/21 History ferrous sulfate 325 mg (65 mg 325 mg PO DAILY 09/14/20 01/29/22 02/07/21 History iron) tablet (Feosol) potassium chloride 20 mEq 20 meq PO TID 03/23/21 01/29/22 Unknown History tablet,extended release(part/cryst) docusate sodium 100 mg capsule 100 mg PO DAILY 05/31/21 01/29/22 Unknown History (Colace) allopurinol 100 mg tablet 100 mg PO DAILY 09/24/21 01/29/22 Unknown History insulin glargine 100 unit/mL (3 30 unit subcut DAILY 12/10/21 01/29/22 Unknown History mL) subcutaneous pen insulin aspart U-100 100 unit/mL 20 unit subcut TID 01/29/22 01/29/22 Unknown History (3 mL) subcutaneous pen (Novolog Flexpen U-100 Insulin aspart) Physical Exam Vital Signs: Vital Signs: Last Vital Signs Temp 97.8 F 01/30/22 11:39 Pulse 103 H 01/30/22 11:39 Resp 19 01/30/22 11:39 BP 110/66 01/30/22 11:39 Pulse Ox 90 L 01/30/22 11:39 O2 Del Method 01/30/22 11:39 O2 Flow Rate 3 01/30/22 11:39 Oxygen Flow Rate 4 01/29/22 15:18 BMI result Body Mass Index 31.1 GENERAL APPEARANCE: Short of breath, on nasal cannula. NECK: no carotid bruit, elevated JVD. SKIN: no suspicious lesions, warm and dry. HEART: no murmurs, irregularly irregular rhythm. Tachycardic. LUNGS: Crackles at bases bilaterally. ABDOMEN: soft, nontender. EXTREMITIES: 1 to 2+ edema lower extremities. Currently legs also wrapped. PERIPHERAL PULSES: equal. NEUROLOGIC: No gross deficits, AAO X 3 Objective Labs and Meds Result diagrams: 01/30/22 05:38 01/30/22 05:38 Lab results: Laboratory Results - last 24 hr 01/29/22 01/29/22 01/29/22 15:30 15:43 15:43 WBC RBC Hgb Hct MCV MCH MCHC RDW Plt Count MPV Absolute Nucleated RBC Nucleated RBC % (auto) Sodium Potassium Chloride Carbon Dioxide Anion Gap BUN Creatinine Estim Creat Clear Calc Estimated GFR POC Glucose Random Glucose Lactic Acid 1.6 Calcium B-Natriuretic Peptide Procalcitonin 0.13 COVID-19 ([facility]) Negative COVID-19 Clin Com See Note 01/29/22 01/29/22 01/30/22 18:28 21:28 05:38 WBC RBC Hgb Hct MCV MCH MCHC RDW Plt Count MPV Absolute Nucleated RBC Nucleated RBC % (auto) Sodium Potassium Chloride Carbon Dioxide Anion Gap BUN Creatinine Estim Creat Clear Calc Estimated GFR POC Glucose 135 H 481 H* Random Glucose Lactic Acid Calcium B-Natriuretic Peptide 725 H Procalcitonin COVID-19 ([facility]) COVID-19 [facility] 01/30/22 01/30/22 01/30/22 05:38 05:38 07:21 WBC 8.2 RBC 3.61 L Hgb 11.2 L Hct 34.4 L MCV 95.3 MCH 31.0 MCHC 32.6 RDW 15.9 Plt Count 193 MPV 9.1 L Absolute Nucleated RBC 0.000 Nucleated RBC % (auto) 0.0 Sodium 135 Potassium 3.8 D Chloride 94 L Carbon Dioxide 33 H Anion Gap 12 BUN 45 H Creatinine 1.40 Estim Creat Clear Calc 37.7 Estimated GFR 37 POC Glucose 344 H Random Glucose 416 H* Lactic Acid Calcium 8.6 B-Natriuretic Peptide Procalcitonin COVID-19 ([facility]) COVID-19 Penneo 01/30/22 01/30/22 11:14 15:46 WBC RBC Hgb Hct MCV MCH MCHC RDW Plt Count MPV Absolute Nucleated RBC Nucleated RBC % (auto) Sodium Potassium Chloride Carbon Dioxide Anion Gap BUN Creatinine Estim Creat Clear Calc Estimated GFR POC Glucose 348 H 289 H Random Glucose Lactic Acid Calcium B-Natriuretic Peptide Procalcitonin COVID-19 ([facility]) COVID-19 Penneo Imaging Radiologist's impression: Impressions Chest X-Ray 01/29/22 15:53 IMPRESSION: Mild congestive change. Assessment and Plan (1) Congestive heart failure: Qualifiers: Heart failure chronicity: acute on chronic Heart failure type: unspecified Qualified Code(s): I50.9 - Heart failure, unspecified Status: Acute Plan 71-year-old female with complex cardiovascular issues presenting for acute on chronic diastolic heart failure. Clinically she is volume overloaded. She has chronic atrial fibrillation. She has AFib with RVR currently. I would not give her beta levi or Cardizem to try to slow her heart rates. If required will try digoxin. Currently I think our aim should be to diurese her. Agree with Bumex 0.25 milligram/hour. If she she does not respond well to this then give her a 2 mg IV bolus and increase the drip 2.5 milligram/hour. Monitor electrolytes closely. Continue spironolactone as before. Quite volume overloaded and as before may need few days of IV diuretics aggressively to improve her filling pressures and volume status. Thank you for allowing me to participate in the care of your patient. Please feel free to contact me if you have any questions. Procedures Date of Service Date of Service: 01/30/22
[2022-01-30 20:45] LABS: Glucose, Whole Blood 278 mg/dL (60-115)
[2022-01-30] MEDS: Pravastatin Sodium 20 MG TABLET PO (22:51)
[2022-01-31 03:03] VITALS: BP 119/77; PULSE 80; RESP 20; TEMP 36.4; O2SAT 99
[2022-01-31 07:09] LABS: B Type Natriuretic Peptide 771 pg/mL (<100)
[2022-01-31 07:16] VITALS: BP 115/73; PULSE 95; RESP 19; TEMP 36.5; O2SAT 99
[2022-01-31 07:16] LABS: Anion Gap 10 (12-20); Blood Urea Nitrogen 45 mg/dL (9-16); Calcium 9.4 mg/dL (8.4-10.2); Chloride 92 mmol/L (96-108); Creatinine Clr Calc Pharmacy 42.6; Estimated Glomerular Filt Rate 43; Glucose Random 195 mg/dL (60-115); Potassium 2.7 mmol/L (3.3-5.1); Sodium 141 mmol/L (135-145)
[2022-01-31 07:46] LABS: Carbon Dioxide 42 mmol/L (22-29)
[2022-01-31 07:56] LABS: Glucose, Whole Blood 173 mg/dL (60-115)
[2022-01-31] MEDS: Insulin Glargine,Hum.rec.anlog 100 UNIT/ML 10 ML VIAL 35 UNIT SUBCUT (08:07)
[2022-01-31] MEDS: Multivitamin TABLET 1 TAB PO (08:07)
[2022-01-31] MEDS: Cholecalciferol (Vitamin D3) 25 MCG TABLET PO (08:07)
[2022-01-31] MEDS: Potassium Chloride ER 20 MEQ TAB.ER.PRT PO ×4 (08:08→22:12)
[2022-01-31] MEDS: Docusate Sodium 100 MG CAPSULE PO (08:08)
[2022-01-31] MEDS: Spironolactone 25 MG TABLET PO ×2 (08:08→18:28)
[2022-01-31] MEDS: allopurinoL 100 MG TABLET PO (08:08)
[2022-01-31] MEDS: metOLazone 5 MG TABLET PO (08:08)
[2022-01-31] MEDS: Insulin Lispro 100 UNIT/ML 3 ML VIAL SUBCUT ×3 (08:08→22:12)
[2022-01-31] MEDS: Gabapentin 300 MG CAPSULE PO ×3 (08:08→22:12)
[2022-01-31 09:43] VITALS: BP 115/73; PULSE 95; O2SAT 99
[2022-01-31] MEDS: Potassium Chloride/H20 10 MEQ/100 ML PIGGYBACK 100 MEQ IV ×2 (10:03→10:17)
[2022-01-31] MEDS: Bumetanide 25 MG in Container,Empty 0 ML IVCONT (10:09)
[2022-01-31] MEDS: Rivaroxaban 15 MG TABLET PO (10:10)
[2022-01-31 10:52] VITALS: BP 104/77; PULSE 98; RESP 20; TEMP 36.7; O2SAT 92
[2022-01-31 11:00] LABS: Glucose, Whole Blood 265 mg/dL (60-115)
--- NOTE | 2022-01-31 13:53 | HO.PM.IMPN ---
Subjective Subjective Date of Service: 01/31/22 Interval History: Seen and examined this Follow-up for CHF Continues on Bumex drip Still with dyspnea on exertion and lower extremity edema Review of Systems Review of Systems: Yes all other systems are reviewed and are negative Constitutional Constitutional: Denies chills and Denies fever(s) Cardiovascular Cardiovascular: Denies chest pain and Denies palpitations Respiratory Respiratory: Denies cough Gastrointestinal Gastrointestinal: Denies abdominal pain, Denies nausea and Denies vomiting Endocrine Endocrine: Denies palpitations Physical Exam Vital Signs: Vital Signs: Last Vital Signs Temp 98.0 F 01/31/22 10:52 Pulse 98 01/31/22 10:52 Resp 20 01/31/22 10:52 BP 104/77 01/31/22 10:52 Pulse Ox 92 01/31/22 10:52 O2 Del Method 01/31/22 10:52 O2 Flow Rate 3.5 01/31/22 10:52 Oxygen Flow Rate 4 01/29/22 15:18 BMI result Body Mass Index 31.1 Const: General: cooperative, comfortable, alert and awake Nutritional Appearance: overweight Orientation/consciousness: patient oriented x3 Resp: Effort & Inspection: normal respiratory effort and able to speak in complete sentences Auscultation: diminished lung sounds Cardio: Rate: regular rate Heart sounds: S1 normal heart sound present and S2 normal heart sound present GI: Inspection: No distended Palpation (GI): Soft to palpation and nontender Neuro: General: patient oriented x3 Extrem: Other: Bilateral leg edema Objective Data Active Medications Acetaminophen (Acetaminophen 325 Mg Tablet) 650 mg PO Q6H PRN PRN Reason: Pain, Mild (Pain Scale 1-3) Albuterol Sulfate (Albuterol Sulfate 90 Mcg 8 Gm Inhaler) 2 puff INHALE Q6H PRN PRN Reason: shortness of breath or wheezing Allopurinol (Allopurinol 100 Mg Tablet) 100 mg PO DAILY [facility] Last Admin: 01/31/22 08:08 Dose: 100 mg Documented By: MAAME Docusate Sodium (Docusate Sodium 100 Mg Capsule) 100 mg PO DAILY [facility] Last Admin: 01/31/22 08:08 Dose: 100 mg Documented By: MAAME Gabapentin (Gabapentin 300 Mg Capsule) 300 mg PO TID [facility] Last Admin: 01/31/22 08:08 Dose: 300 mg Documented By: MAAME Bumetanide 25 mg/ IV (Miscellaneous Supplies) 100 mls @ 1 mls/hr IVCONT .Q24H [facility] Last Admin: 01/31/22 10:09 Dose: 0.25 mg/hr, 1 mls/hr Documented By: MAAME Insulin Glargine (Insulin Glargine,Hum.Rec.Anlog 100 Unit/Ml 10 Ml Vial) 35 unit SUBCUT DAILY [facility] Last Admin: 01/31/22 08:07 Dose: 35 unit Documented By: MAAME Insulin Human Lispro (Insulin Lispro 100 Unit/Ml 3 Ml Vial) 0 unit SUBCUT QIDACHS [facility]; Protocol Last Admin: 01/31/22 12:26 Dose: 6 unit Documented By: MAAME Metolazone (Metolazone 5 Mg Tablet) 5 mg PO DAILY [facility] Last Admin: 01/31/22 08:08 Dose: 5 mg Documented By: MAAME Multivitamins/Vitamin C (Multivitamin Tablet) 1 tab PO DAILY [facility] Last Admin: 01/31/22 08:07 Dose: 1 tab Documented By: MAAME Ondansetron HCl (Ondansetron Hcl 4 Mg/2 Ml Vial) 4 mg IVPUSH Q8H PRN PRN Reason: Nausea and Vomiting Pharmacy Consult (Consult Rx Perform Med Rec) 1 each MISCELLANE ONCE PRN PRN Reason: Consult order Potassium Chloride (Potassium Chloride Er 20 Meq Tab.Er.Prt) 20 meq PO TID [facility] Last Admin: 01/31/22 08:08 Dose: 20 meq Documented By: MAAME Pravastatin Sodium (Pravastatin Sodium 20 Mg Tablet) 20 mg PO BEDTIME [facility] Last Admin: 01/30/22 22:51 Dose: 20 mg Documented By: FELECIA Psyllium Hydrophilic Mucilloid (Psyllium Seed 3.4 Gm Powd.Pack) 3.4 gm PO DAILY [facility] Last Admin: 01/31/22 08:07 Dose: 3.4 gm Documented By: MAAME Rivaroxaban (Rivaroxaban 15 Mg Tablet) 15 mg PO DAILY [facility] Last Admin: 01/31/22 10:10 Dose: 15 mg Documented By: MAAME Sodium Chloride (0.9 % Sodium Chloride Flush 3 Ml Syringe) 3 ml IVFLUSH QSHIFT [facility] Last Admin: 01/31/22 08:11 Dose: Not Given Documented By: MAAME Non-Admin Reason: IV Running Spironolactone (Spironolactone 25 Mg Tablet) 25 mg PO BID@0900,1800 [facility]; Protocol Tiotropium [place] (Tiotropium [place] 18 Mcg Cap.W.Dev) 1 puff INHALE RDAILY [facility] Last Admin: 01/30/22 11:40 Dose: 1 puff Documented By: NAHID Vitamin D (Cholecalciferol (Vitamin D3) 25 Mcg Tablet) 25 mcg PO DAILY [facility] Last Admin: 01/31/22 08:07 Dose: 25 mcg Documented By: MAAME Labs CBC & Chem 7: 01/30/22 05:38 01/31/22 05:51 Labs: Laboratory Results - last 24 hr 01/30/22 01/30/22 01/31/22 15:46 20:39 05:51 Anion Gap 10 L Estim Creat Clear Calc 42.6 Estimated GFR 43 POC Glucose 289 H 278 H Random Glucose 195 H Calcium 9.4 D Magnesium 2.0 B-Natriuretic Peptide 01/31/22 01/31/22 01/31/22 05:51 07:52 10:56 Anion Gap Estim Creat Clear Calc Estimated GFR POC Glucose 173 H 265 H Random Glucose Calcium Magnesium B-Natriuretic Peptide 771 H Microbiology Microbiology Results: Microbiology 01/29/22 15:44 Blood Culture - Preliminary Blood - Venous No growth after 24 hours. 01/29/22 15:43 Blood Culture - Preliminary Blood - Venous No growth after 24 hours. Assessment and Plan (1) Congestive heart failure: Status: Acute (2) Acute hypokalemia: Status: Acute (3) Persistent atrial fibrillation: Status: Acute Plan A 71 years old lady with PMH of CHF, AFib, diabetes, morbid obesity, chronic hypoxic failure on 2 L, COPD, MELANIE on CPAP who presents to the hospital with a complaint of worsening shortness of breath and lower extremity edema for the last 5 days. Acute on chronic hypoxic respiratory failure Secondary to diastolic CHF exacerbation Uses 2L oxygen at baseline Acute on chronic diastolic CHF continue Bumex drip neg over 5 L thus far Metolazone 5 mg daily Monitor intake and output cardiology following Will add Diamox due to bicarb trending up, contraction alkalosis Atrial fibrillation with RVR Likely secondary to CHF exacerbation Not on any rate control medications HR better controlled Avoid pb blockers with acute CHF Continue Xarelto cardiology following Hypokalemia Potassium level trending down Mag within normal limits -will replace IV and continue home dose p.o. replacement -follow BMP closely Type 2 diabetes with hyperglycemia diabetic diet SSI, Increase home dose Lantus MELANIE continue cpap DVT PPX-Xarelto Attending-Dr. Ulloa The patient needs ongoing hospital stay for evaluation and treatment of acute hypoxic failure, CHF exacerbation and AFib with RVR to prevent possible decompensation. Quality Stroke Does the patient have a stroke diagnosis?: No VTE Prior VTE?: No VTE Risk Level:: Medical - moderate - high VTE Device Contraindication: Treatment Not Indicated VTE Drug Contraindication: N/A - Med Ordered
--- NOTE | 2022-01-31 14:18 | PM.PNCARD ---
Subjective Subjective Date of Service: 01/31/22 Interval history: Patient seen and examined at bedside. She is on Bumex drip. Feeling little better but still quite short of breath. Physical Exam Vital Signs: Last Vital Signs Temp 98.0 F 01/31/22 10:52 Pulse 98 01/31/22 10:52 Resp 20 01/31/22 10:52 BP 104/77 01/31/22 10:52 Pulse Ox 92 01/31/22 10:52 O2 Del Method 01/31/22 10:52 O2 Flow Rate 3.5 01/31/22 10:52 Oxygen Flow Rate 4 01/29/22 15:18 BMI result Body Mass Index 31.1 GENERAL APPEARANCE: Short of breath, on nasal cannula. NECK: no carotid bruit, elevated JVD. SKIN: no suspicious lesions, warm and dry. HEART: no murmurs, irregularly irregular rhythm. Tachycardic. LUNGS: Crackles at bases bilaterally. ABDOMEN: soft, nontender. EXTREMITIES: 1 to 2+ edema lower extremities. Currently legs also wrapped. PERIPHERAL PULSES: equal. NEUROLOGIC: No gross deficits, AAO X 3 Objective Labs and Meds Result diagrams: 01/30/22 05:38 01/31/22 05:51 Lab results: Laboratory Results - last 24 hr 01/30/22 01/30/22 01/31/22 15:46 20:39 05:51 Sodium 141 Potassium 2.7 L D Chloride 92 L Carbon Dioxide 42 H* D Anion Gap 10 L BUN 45 H Creatinine 1.24 Estim Creat Clear Calc 42.6 Estimated GFR 43 POC Glucose 289 H 278 H Random Glucose 195 H Calcium 9.4 D Magnesium 2.0 B-Natriuretic Peptide 01/31/22 01/31/22 01/31/22 05:51 07:52 10:56 Sodium Potassium Chloride Carbon Dioxide Anion Gap BUN Creatinine Estim Creat Clear Calc Estimated GFR POC Glucose 173 H 265 H Random Glucose Calcium Magnesium B-Natriuretic Peptide 771 H Progress Note: A&P Assessment and plan (1) (HFpEF) heart failure with preserved ejection fraction: Status: Acute (2) Right heart failure (secondary to left heart failure): Status: Resolved (3) Persistent atrial fibrillation: Status: Acute Plan 71-year-old female with chronic diastolic right heart failure with right more than left side heart failure. She is presenting with significant volume overload. She is on Bumex drip. Tolerating Bumex and proving. I think she will require Bumex for at least couple of days. Electrolytes are quite abnormal and she is hypokalemic. She also has low chloride levels and elevated bicarb. I think she will benefit from KCL. Increasing the spironolactone to 25 mg twice a day. We will follow along with you. Thank you for allowing me to participate in the care of your patient. Please feel free to contact me if you have any questions. Time Spent With Patient Time: Total time spent is greater than 50% in coordination of care (as documented) at patient's floor/unit and/or counseling patient: Progress Note: Quality Stroke Does the patient have a stroke diagnosis?: No Procedures Date of Service Date of Service: 01/31/22
[2022-01-31] MEDS: acetaZOLAMIDE 250 MG TABLET PO ×2 (15:11→22:12)
[2022-01-31 15:19] VITALS: BP 122/67; PULSE 76; RESP 19; TEMP 37.1; O2SAT 96
[2022-01-31 15:47] LABS: Glucose, Whole Blood 341 mg/dL (60-115)
--- NOTE | 2022-01-31 18:57 | PC.NURSE ---
Pt alert and oriented x3. Denies pain biut C/O discomfort to BLE. Pt has anasarca edema throughout hence the Bumex drip. 121.2kg with a standing scale. Pt continues on Bumex drip running at 1ml/hr. New bagt hang this am. Blood sugars in the 100s and 200s.
[2022-01-31 19:42] VITALS: PULSE 114; RESP 19; TEMP 37.1; O2SAT 97
[2022-01-31 20:29] LABS: Glucose, Whole Blood 434 mg/dL (60-115)
[2022-01-31] MEDS: Pravastatin Sodium 20 MG TABLET PO (22:12)
[2022-01-31] MEDS: 0.9 % Sodium Chloride Flush 3 ML SYRINGE IVFLUSH (22:13)
[2022-02-01] VITALS (10 sets, daily range): BP systolic 90–114; BP diastolic 59–75; PULSE 68–101; RESP 15–20; TEMP 36.1–37.2; O2SAT 91–98
--- NOTE | 2022-02-01 07:00 | CA_ITS ---
Transthoracic Echocardiogram Patient (Last, First, Middle): Ragini Little, Gender: Female Date of : 1950 Age: 71 Procedure Date: 02/01/2022 Procedure Type: Transthoracic Echocardiogram Location[place] [facility] [place] Height: 162.56 cm Weight: 82.1 kg BSA: 1.87 m2 Heart Rate: 109 bpm BP: 115 / 73 mmHg Wash Crew Person: SB Referring MD: Dave Lau MD Symptoms: CHF Study Quality: Technically Difficult/BSA/Contrast ECG Rhythm: Atrial Fibrillation Conclusions: - Normal left ventricular size and systolic function. There is mildly increased left ventricular wall thickness. The visually estimated ejection fraction is between 65-70%. - E/E prime ratio is >15, consistent with elevated filling pressures. - Moderately increased right ventricular cavity size. There is moderately decreased right ventricular systolic function. - The left atrium is moderately dilated. - There is mild dilatation of the sinuses of Valsalva measuring 3.40 cm and mild dilatation of the ascending aorta measuring 4.00 cm. Findings Procedure Information Contrast agent, definity, is being given per protocol without apparent complications. Left Ventricle Normal left ventricular size and systolic function. There is mildly increased left ventricular wall thickness. The visually estimated ejection fraction is between 65-70%. There is no evidence of regional wall motion abnormalities. Abnormal diastolic function is noted. Spectral Doppler is indicative of a pseudonormal filling pattern. E/E prime ratio is >15, consistent with elevated filling pressures. Right Ventricle Moderately increased right ventricular cavity size. There is moderately decreased right ventricular systolic function. Atria The left atrium is moderately dilated. Aortic Valve There is a normal trileaflet aortic valve. There is no aortic valve stenosis. There is no aortic valve regurgitation. Mitral Valve Normal mitral valve structure and function. There is trace mitral valve regurgitation. There is no mitral valve stenosis. Pulmonic Valve Normal pulmonic valve structure and function. There is trace pulmonic valve regurgitation. Tricuspid Valve Normal tricuspid valve structure and function. There is trace tricuspid valve regurgitation. Significantly elevated right atrial pressure. There is no evidence of pulmonary hypertension. Great Vessels There is mild dilatation of the sinuses of Valsalva measuring 3.40 cm and mild dilatation of the ascending aorta measuring 4.00 cm. The visualized portions of the pulmonary artery and branches are normal. Venous The inferior vena cava is dilated and does not collapse with inspiration. Pericardium/Pleural There is no evidence of pericardial effusion. Measurements 2D Linear Measurements IVSd: 0.96 0.6-0.9/0.6-1.0 cm LVIDd: 4.62 3.9-5.3/4.2-5.9 cm LVIDd Index: 2.47 2.4-3.2/2.2-3.1 cm/m2 LVIDs: 3.08 2.0-3.6 cm LVPWd: 0.91 0.7-1.1 cm LA Diam: 4.60 2.7-3.8/3.0-4.0 cm LAIDs Index: 2.46 1.5-2.3 cm/m2 LV Mass: 181.34 67-162/88-224 g LV Mass Index: 96.98 43-95/49-115 g/m2 LVOT Diam: 2.30 3.0+(-)1.3 cm 2D Systolic Function EF 4C: 53.20 >55% Aortic Valve AoV Pk Felix: 1.29 AoV Mn Felix: 0.88 AoV VTI: 0.19 AoV Pk Grad: 7.00 Aov Mn Grad: 4.00 DAVID Cont.VTI: 2.83 LVOT LVOT Pk Felix: 0.92 LVOT Mn Felix: 0.60 LVOT VTI: 0.13 LVOT Pk Grad: 3.00 LVOT Mn Grad: 2.00 LVOT Diam: 2.30 LVOT Area: 4.15 Right Ventricle TVS' Felix: 9.50 Tricuspid Valve TR Pk Felix: 2.22 TR Pk Grad: 20.00 RA Press: 15.00 RVSP: 35.00 Great Vessels Aorta Sinus of Valsalva: 3.40 2.0-3.5 cm Ao Asc: 4.00 2.1-3.4 cm Ao Arch: 3.10 Pulmonary Valve PV Pk Felix: 1.06 Peak PV Grad: 4.00 Updated in Other Vendor System with Status of Final Dave Lau MD electronically signed on 02/02/2022 1:35:58 AM with status of Final
[2022-02-01 08:00] LABS: Anion Gap 12 (12-20); Blood Urea Nitrogen 49 mg/dL (9-16); Carbon Dioxide 45 mmol/L (22-29); Chloride 86 mmol/L (96-108); Creatinine Clr Calc Pharmacy 37.4; Estimated Glomerular Filt Rate 37; Glucose Random 179 mg/dL (60-115); Magnesium 1.9 mg/dL (1.6-2.6); Potassium 3.1 mmol/L (3.3-5.1); Sodium 140 mmol/L (135-145)
[2022-02-01 08:27] LABS: Glucose, Whole Blood 180 mg/dL (60-115)
[2022-02-01] MEDS: acetaZOLAMIDE 250 MG TABLET PO ×2 (09:23→21:03)
[2022-02-01] MEDS: metOLazone 5 MG TABLET PO (09:23)
[2022-02-01] MEDS: Multivitamin TABLET 1 TAB PO (09:24)
[2022-02-01] MEDS: Docusate Sodium 100 MG CAPSULE PO (09:24)
[2022-02-01] MEDS: Cholecalciferol (Vitamin D3) 25 MCG TABLET PO (09:24)
[2022-02-01] MEDS: Gabapentin 300 MG CAPSULE PO ×3 (09:24→21:03)
[2022-02-01] MEDS: Potassium Chloride ER 20 MEQ TAB.ER.PRT PO ×3 (09:24→21:03)
[2022-02-01] MEDS: Spironolactone 25 MG TABLET PO (09:24)
[2022-02-01] MEDS: allopurinoL 100 MG TABLET PO (09:24)
[2022-02-01] MEDS: 0.9 % Sodium Chloride Flush 3 ML SYRINGE IVFLUSH ×3 (09:25→21:04)
[2022-02-01] MEDS: Insulin Lispro 100 UNIT/ML 3 ML VIAL SUBCUT ×4 (09:27→21:04)
[2022-02-01] MEDS: Insulin Glargine,Hum.rec.anlog 100 UNIT/ML 10 ML VIAL 35 UNIT SUBCUT (09:27)
[2022-02-01] MEDS: Bumetanide 25 MG in Container,Empty 0 ML IVCONT (09:28)
[2022-02-01] MEDS: Potassium Chloride ER 20 MEQ TAB.ER.PRT 40 MEQ PO ×2 (10:56→15:50)
[2022-02-01] MEDS: Rivaroxaban 15 MG TABLET PO (10:57)
--- NOTE | 2022-02-01 11:06 | MHC.CM.PN ---
Per ROUNDS discussion, Patient remains on IV Bumex and is not yet medically cleared for dc. PT is recommending STR but Patient is more interested in returning home at this point. CM will follow.
--- NOTE | 2022-02-01 11:24 | HO.PM.IMPN ---
Subjective Subjective Date of Service: 02/01/22 Interval History: Seen and examined this morning Follow-up for CHF Continues on Bumex drip, still with dyspnea on exertion Leg edema appears to be improving Review of Systems Review of Systems: Yes all other systems are reviewed and are negative Constitutional Constitutional: Denies chills and Denies fever(s) Cardiovascular Cardiovascular: Denies chest pain, Denies palpitations, Reports dyspnea and Reports dyspnea on exertion Respiratory Respiratory: Denies cough, Reports dyspnea and Reports dyspnea on exertion Gastrointestinal Gastrointestinal: Denies abdominal pain Endocrine Endocrine: Denies palpitations Physical Exam Vital Signs: Vital Signs: Last Vital Signs Temp 97.7 F 02/01/22 08:00 Pulse 90 02/01/22 10:50 Resp 19 02/01/22 08:00 BP 114/60 02/01/22 10:50 Pulse Ox 92 02/01/22 10:50 O2 Del Method 02/01/22 08:00 O2 Flow Rate 3.5 02/01/22 08:00 Oxygen Flow Rate 4 01/29/22 15:18 BMI result Body Mass Index 31.1 Const: General: cooperative, comfortable, alert and awake Nutritional Appearance: overweight Orientation/consciousness: patient oriented x3 Resp: Effort & Inspection: normal respiratory effort and able to speak in complete sentences Auscultation: diminished lung sounds Cardio: Rate: regular rate Heart sounds: S1 normal heart sound present and S2 normal heart sound present GI: Inspection: No distended Palpation (GI): Soft to palpation and nontender Neuro: General: patient oriented x3 Extrem: Other: Bilateral leg edema, improving b/l venous stasis changes Objective Data Active Medications Acetaminophen (Acetaminophen 325 Mg Tablet) 650 mg PO Q6H PRN PRN Reason: Pain, Mild (Pain Scale 1-3) Acetazolamide (Acetazolamide 250 Mg Tablet) 250 mg PO BID [facility] Stop: 02/02/22 21:01 Last Admin: 02/01/22 09:23 Dose: 250 mg Documented By: BHUMIKA Albuterol Sulfate (Albuterol Sulfate 90 Mcg 8 Gm Inhaler) 2 puff INHALE Q6H PRN PRN Reason: shortness of breath or wheezing Allopurinol (Allopurinol 100 Mg Tablet) 100 mg PO DAILY [facility] Last Admin: 02/01/22 09:24 Dose: 100 mg Documented By: BHUMIKA Docusate Sodium (Docusate Sodium 100 Mg Capsule) 100 mg PO DAILY [facility] Last Admin: 02/01/22 09:24 Dose: 100 mg Documented By: BHUMIKA Gabapentin (Gabapentin 300 Mg Capsule) 300 mg PO TID [facility] Last Admin: 02/01/22 09:24 Dose: 300 mg Documented By: BHUMIKA Bumetanide 25 mg/ IV (Miscellaneous Supplies) 100 mls @ 1 mls/hr IVCONT .Q24H [facility] Last Admin: 02/01/22 09:28 Dose: 0.25 mg/hr, 1 mls/hr Documented By: BHUMIKA Insulin Glargine (Insulin Glargine,Hum.Rec.Anlog 100 Unit/Ml 10 Ml Vial) 35 unit SUBCUT DAILY [facility] Last Admin: 02/01/22 09:27 Dose: 35 unit Documented By: BHUMIKA Insulin Human Lispro (Insulin Lispro 100 Unit/Ml 3 Ml Vial) 0 unit SUBCUT QIDACHS [facility]; Protocol Last Admin: 02/01/22 09:27 Dose: 2 unit Documented By: BHUMIKA Metolazone (Metolazone 5 Mg Tablet) 5 mg PO DAILY [facility] Last Admin: 02/01/22 09:23 Dose: 5 mg Documented By: BHUMIKA Multivitamins/Vitamin C (Multivitamin Tablet) 1 tab PO DAILY [facility] Last Admin: 02/01/22 09:24 Dose: 1 tab Documented By: BHUMIKA Ondansetron HCl (Ondansetron Hcl 4 Mg/2 Ml Vial) 4 mg IVPUSH Q8H PRN PRN Reason: Nausea and Vomiting Pharmacy Consult (Consult Rx Perform Med Rec) 1 each MISCELLANE ONCE PRN PRN Reason: Consult order Potassium Chloride (Potassium Chloride Er 20 Meq Tab.Er.Prt) 20 meq PO TID [facility] Last Admin: 02/01/22 09:24 Dose: 20 meq Documented By: BHUMIKA Pravastatin Sodium (Pravastatin Sodium 20 Mg Tablet) 20 mg PO BEDTIME [facility] Last Admin: 01/31/22 22:12 Dose: 20 mg Documented By: FELECIA Psyllium Hydrophilic Mucilloid (Psyllium Seed 3.4 Gm Powd.Pack) 3.4 gm PO DAILY [facility] Last Admin: 02/01/22 09:43 Dose: 3.4 gm Documented By: BHUMIKA Rivaroxaban (Rivaroxaban 15 Mg Tablet) 15 mg PO DAILY [facility] Last Admin: 02/01/22 10:57 Dose: 15 mg Documented By: BHUMIKA Sodium Chloride (0.9 % Sodium Chloride Flush 3 Ml Syringe) 3 ml IVFLUSH QSHIFT [facility] Last Admin: 02/01/22 09:25 Dose: 3 ml Documented By: BHUMIKA Spironolactone (Spironolactone 25 Mg Tablet) 25 mg PO BID@0900,1800 [facility]; Protocol Last Admin: 02/01/22 09:24 Dose: 25 mg Documented By: BHUMIKA Tiotropium [place] (Tiotropium [place] 18 Mcg Cap.W.Dev) 1 puff INHALE RDAILY [facility] Last Admin: 02/01/22 07:21 Dose: 1 puff Documented By: LALO Vitamin D (Cholecalciferol (Vitamin D3) 25 Mcg Tablet) 25 mcg PO DAILY [facility] Last Admin: 02/01/22 09:24 Dose: 25 mcg Documented By: BHUMIKA Labs CBC & Chem 7: 01/30/22 05:38 02/01/22 06:20 Labs: Laboratory Results - last 24 hr 01/31/22 01/31/22 02/01/22 15:18 19:39 06:20 Anion Gap 12 Estim Creat Clear Calc 37.4 Estimated GFR 37 POC Glucose 341 H 434 H* Random Glucose 179 H Calcium 10.0 D Magnesium 1.9 02/01/22 08:22 Anion Gap Estim Creat Clear Calc Estimated GFR POC Glucose 180 H Random Glucose Calcium Magnesium Microbiology Microbiology Results: Microbiology 01/29/22 15:44 Blood Culture - Preliminary Blood - Venous No growth after 48 hours. 01/29/22 15:43 Blood Culture - Preliminary Blood - Venous No growth after 48 hours. Assessment and Plan (1) Congestive heart failure: Status: Acute (2) Acute hypokalemia: Status: Acute (3) Persistent atrial fibrillation: Status: Acute Plan A 71 years old lady with PMH of CHF, AFib, diabetes, morbid obesity, chronic hypoxic failure on 2 L, COPD, MELANIE on CPAP who presents to the hospital with a complaint of worsening shortness of breath and lower extremity edema for the last 5 days. Acute on chronic hypoxic respiratory failure Secondary to diastolic CHF exacerbation Uses 2L oxygen at baseline Acute on chronic diastolic CHF still with leg edema neg nearly 8 L thus far. bicarb and creatinine starting to trend up Will DC Bumex drip - consider resuming IV bolus dosing in a.m. Continue Metolazone 5 mg daily Monitor intake and output cardiology following continue Diamox due to bicarb trending up, contraction alkalosis Atrial fibrillation with RVR Likely secondary to CHF exacerbation Not on any rate control medications HR better controlled Avoid pb blockers with acute CHF Continue Xarelto cardiology following Hypokalemia K 3.1, mag 1.9 -continue replacement -follow BMP closely CKD3 creatinine trending up slightly monitor renal function closely while diuresing Type 2 diabetes with hyperglycemia diabetic diet SSI, Increase home dose Lantus MELANIE continue cpap DVT PPX-Xabhavin Attending-Dr. Ulloa The patient needs ongoing hospital stay for evaluation and treatment of acute hypoxic failure, CHF exacerbation and AFib with RVR to prevent possible decompensation. Quality Stroke Does the patient have a stroke diagnosis?: No VTE Prior VTE?: No VTE Risk Level:: Medical - moderate - high VTE Device Contraindication: Treatment Not Indicated VTE Drug Contraindication: N/A - Med Ordered
--- NOTE | 2022-02-01 11:35 | PM.PNCARD ---
Subjective Subjective Date of Service: 02/01/22 Interval history: Saying breathing is little better. Creatinine is rising. She continues to volume overloaded. Physical Exam Vital Signs: Last Vital Signs Temp 97.7 F 02/01/22 08:00 Pulse 90 02/01/22 10:50 Resp 19 02/01/22 08:00 BP 114/60 02/01/22 10:50 Pulse Ox 92 02/01/22 10:50 O2 Del Method 02/01/22 08:00 O2 Flow Rate 3.5 02/01/22 08:00 Oxygen Flow Rate 4 01/29/22 15:18 BMI result Body Mass Index 31.1 GENERAL APPEARANCE: Short of breath, on nasal cannula. NECK: no carotid bruit, elevated JVD. SKIN: no suspicious lesions, warm and dry. HEART: no murmurs, irregularly irregular rhythm. LUNGS: Crackles at bases bilaterally. ABDOMEN: soft, nontender. EXTREMITIES: 1+ edema PERIPHERAL PULSES: equal. NEUROLOGIC: No gross deficits, AAO X 3 Objective Labs and Meds Result diagrams: 01/30/22 05:38 02/01/22 14:37 Lab results: Laboratory Results - last 24 hr 01/31/22 01/31/22 01/31/22 15:04 15:18 19:39 Sodium Potassium 3.0 L Chloride Carbon Dioxide Anion Gap BUN Creatinine Estim Creat Clear Calc Estimated GFR POC Glucose 341 H 434 H* Random Glucose Calcium Magnesium 02/01/22 02/01/22 06:20 08:22 Sodium 140 Potassium 3.1 L Chloride 86 L Carbon Dioxide 45 H* Anion Gap 12 BUN 49 H Creatinine 1.41 H Estim Creat Clear Calc 37.4 Estimated GFR 37 POC Glucose 180 H Random Glucose 179 H Calcium 10.0 D Magnesium 1.9 Progress Note: A&P Assessment and plan (1) Congestive heart failure: Status: Acute (2) Persistent atrial fibrillation: Status: Acute Plan 71-year-old female with acute on chronic congestive heart failure. Was significantly volume overloaded and was on Bumex drip. Creatinine has been worsening. We have repeated the creatinine in the afternoon and it is on the rise further. Stop the Bumex drip. Reassess creatinine tomorrow and start her on torsemide 40 mg twice a day p.o.. Continue rest of medications as before. Will review echocardiogram as it happens. Thank you for allowing me to participate in the care of your patient. Please feel free to contact me if you have any questions. Time Spent With Patient Time: Total time spent is greater than 50% in coordination of care (as documented) at patient's floor/unit and/or counseling patient: Progress Note: Quality Stroke Does the patient have a stroke diagnosis?: No Procedures Date of Service Date of Service: 02/01/22
[2022-02-01 11:55] LABS: Glucose, Whole Blood 346 mg/dL (60-115)
[2022-02-01 15:32] LABS: Anion Gap 15 (12-20); Blood Urea Nitrogen 52 mg/dL (9-16); Calcium 10.4 mg/dL (8.4-10.2); Carbon Dioxide 43 mmol/L (22-29); Chloride 85 mmol/L (96-108); Creatinine Clr Calc Pharmacy 34.3; Estimated Glomerular Filt Rate 33; Glucose Random 260 mg/dL (60-115); Sodium 140 mmol/L (135-145)
[2022-02-01 16:01] LABS: Glucose, Whole Blood 253 mg/dL (60-115)
--- NOTE | 2022-02-01 18:25 | PC.NURSE ---
BP was 90/70 manual, pt mention feeling lightheaded, Md notified. Spironolactone hold per MD order
[2022-02-01 20:00] LABS: Glucose, Whole Blood 236 mg/dL (60-115)
[2022-02-01] MEDS: Pravastatin Sodium 20 MG TABLET PO (21:03)
[2022-02-02] VITALS (10 sets, daily range): BP systolic 93–130; BP diastolic 52–78; PULSE 82–113; RESP 17–20; TEMP 36.1–36.6; O2SAT 94–99; BMI 42.7
[2022-02-02 06:42] LABS: Hematocrit 37.2 % (37.0-47.0); Hemoglobin 11.9 g/dl (12.0-16.0); Mean Corpuscular Hemoglobin 30.8 pg (27.0-33.0); Mean Corpuscular Volume 96.4 fL (80.0-98.0); Mean Platelet Volume 9.1 fL (9.4-12.3); Platelet Count 210 X10*3/uL (160-400); Red Blood Count 3.86 X10*6/uL (4.20-5.50); Red Cell Distribution Width 15.4 % (11.0-16.0); White Blood Count 9.4 X10*3/uL (4.8-10.8)
[2022-02-02 07:03] LABS: Anion Gap 12 (12-20); Blood Urea Nitrogen 51 mg/dL (9-16); Calcium 9.6 mg/dL (8.4-10.2); Chloride 89 mmol/L (96-108); Creatinine Clr Calc Pharmacy 37.1; Estimated Glomerular Filt Rate 36; Glucose Random 190 mg/dL (60-115); Potassium 3.4 mmol/L (3.3-5.1); Sodium 140 mmol/L (135-145)
[2022-02-02 07:17] LABS: Carbon Dioxide 42 mmol/L (22-29)
[2022-02-02] MEDS: Insulin Lispro 100 UNIT/ML 3 ML VIAL SUBCUT ×4 (07:30→22:09)
[2022-02-02 07:40] LABS: Glucose, Whole Blood 179 mg/dL (60-115)
[2022-02-02] MEDS: Insulin Glargine,Hum.rec.anlog 100 UNIT/ML 10 ML VIAL 35 UNIT SUBCUT (08:51)
[2022-02-02] MEDS: Docusate Sodium 100 MG CAPSULE PO (08:51)
[2022-02-02] MEDS: Potassium Chloride ER 20 MEQ TAB.ER.PRT PO ×3 (08:51→22:08)
[2022-02-02] MEDS: 0.9 % Sodium Chloride Flush 3 ML SYRINGE IVFLUSH ×3 (08:51→22:09)
[2022-02-02] MEDS: Rivaroxaban 15 MG TABLET PO (08:52)
[2022-02-02] MEDS: acetaZOLAMIDE 250 MG TABLET PO ×2 (08:52→22:09)
[2022-02-02] MEDS: metOLazone 5 MG TABLET PO (08:52)
[2022-02-02] MEDS: Cholecalciferol (Vitamin D3) 25 MCG TABLET PO (08:52)
[2022-02-02] MEDS: Multivitamin TABLET 1 TAB PO (08:52)
[2022-02-02] MEDS: Gabapentin 300 MG CAPSULE PO ×3 (08:52→22:09)
[2022-02-02] MEDS: allopurinoL 100 MG TABLET PO (08:52)
[2022-02-02] MEDS: Spironolactone 25 MG TABLET PO ×2 (08:52→17:29)
--- NOTE | 2022-02-02 09:53 | HO.PM.IMPN ---
Subjective Subjective Date of Service: 02/02/22 Review of Systems Follow up CHF Feeling better, less swollen denies chest pain, sob Physical Exam Vital Signs: Vital Signs: Last Vital Signs Temp 97.4 F 02/02/22 07:20 Pulse 98 02/02/22 07:32 Resp 20 02/02/22 07:32 BP 101/68 02/02/22 07:20 Pulse Ox 95 02/02/22 07:20 O2 Del Method 02/02/22 07:20 O2 Flow Rate 3 02/02/22 07:20 Oxygen Flow Rate 4 01/29/22 15:18 BMI result Body Mass Index 42.7 Appearing in no acute distress lung sounds are clear to auscultation heart regular rate rhythm, clear S1, S2, +1-2 LE edema positive bowel sounds, abdomen is soft, nontender neuro patient is alert x3, no focal deficits Objective Data Active Medications Acetaminophen (Acetaminophen 325 Mg Tablet) 650 mg PO Q6H PRN PRN Reason: Pain, Mild (Pain Scale 1-3) Acetazolamide (Acetazolamide 250 Mg Tablet) 250 mg PO BID [facility] [place] Stop: 02/02/22 21:01 Last Admin: 02/02/22 08:52 Dose: 250 mg Documented By: SANJUANITA Albuterol Sulfate (Albuterol Sulfate 90 Mcg 8 Gm Inhaler) 2 puff INHALE Q6H PRN PRN Reason: shortness of breath or wheezing Allopurinol (Allopurinol 100 Mg Tablet) 100 mg PO DAILY [facility] [place] Last Admin: 02/02/22 08:52 Dose: 100 mg Documented By: SANJUANITA Docusate Sodium (Docusate Sodium 100 Mg Capsule) 100 mg PO DAILY [facility] [place] Last Admin: 02/02/22 08:51 Dose: 100 mg Documented By: SANJUANITA Gabapentin (Gabapentin 300 Mg Capsule) 300 mg PO TID [facility] [place] Last Admin: 02/02/22 08:52 Dose: 300 mg Documented By: SANJUANITA Insulin Glargine (Insulin Glargine,Hum.Rec.Anlog 100 Unit/Ml 10 Ml Vial) 35 unit SUBCUT DAILY [facility] [place] Last Admin: 02/02/22 08:51 Dose: 35 unit Documented By: SANJUANITA Insulin Human Lispro (Insulin Lispro 100 Unit/Ml 3 Ml Vial) 0 unit SUBCUT QIDACHS [facility] [place]; Protocol Last Admin: 02/02/22 07:30 Dose: 2 unit Documented By: SANJUANITA Metolazone (Metolazone 5 Mg Tablet) 5 mg PO DAILY [facility] [place] Last Admin: 02/02/22 08:52 Dose: 5 mg Documented By: SANJUANITA Multivitamins/Vitamin C (Multivitamin Tablet) 1 tab PO DAILY [facility] [place] Last Admin: 02/02/22 08:52 Dose: 1 tab Documented By: SANJUANITA Ondansetron HCl (Ondansetron Hcl 4 Mg/2 Ml Vial) 4 mg IVPUSH Q8H PRN PRN Reason: Nausea and Vomiting Pharmacy Consult (Consult Rx Perform Med Rec) 1 each MISCELLANE ONCE PRN PRN Reason: Consult order Potassium Chloride (Potassium Chloride Er 20 Meq Tab.Er.Prt) 20 meq PO TID [facility] [place] Last Admin: 02/02/22 08:51 Dose: 20 meq Documented By: SANJUANITA Pravastatin Sodium (Pravastatin Sodium 20 Mg Tablet) 20 mg PO BEDTIME [facility] [place] Last Admin: 02/01/22 21:03 Dose: 20 mg Documented By: ADRIANA Psyllium Hydrophilic Mucilloid (Psyllium Seed 3.4 Gm Powd.Pack) 3.4 gm PO DAILY [facility] [place] Last Admin: 02/02/22 08:52 Dose: 3.4 gm Documented By: SANJUANITA Rivaroxaban (Rivaroxaban 15 Mg Tablet) 15 mg PO DAILY [facility] [place] Last Admin: 02/02/22 08:52 Dose: 15 mg Documented By: SANJUANITA Sodium Chloride (0.9 % Sodium Chloride Flush 3 Ml Syringe) 3 ml IVFLUSH QSHIFT [facility] [place] Last Admin: 02/02/22 08:51 Dose: 3 ml Documented By: SANJUANITA Spironolactone (Spironolactone 25 Mg Tablet) 25 mg PO BID@0900,1800 [facility] [place]; Protocol Last Admin: 02/02/22 08:52 Dose: 25 mg Documented By: SANJUANITA Tiotropium Roland (Tiotropium Roland 18 Mcg Cap.W.Dev) 1 puff INHALE RDAILY [facility] [place] Last Admin: 02/02/22 07:29 Dose: 1 puff Documented By: LALO Vitamin D (Cholecalciferol (Vitamin D3) 25 Mcg Tablet) 25 mcg PO DAILY [facility] [place] Last Admin: 02/02/22 08:52 Dose: 25 mcg Documented By: SANJUANITA Labs CBC & Chem 7: 02/02/22 05:51 02/02/22 05:51 Labs: Laboratory Results - last 24 hr 02/01/22 02/01/22 02/01/22 11:52 14:37 15:24 MCV MCH MCHC RDW Plt Count MPV Absolute Nucleated RBC Nucleated RBC % (auto) Anion Gap 15 Estim Creat Clear Calc 34.3 Estimated GFR 33 POC Glucose 346 H 253 H Random Glucose 260 H Calcium 10.4 H Magnesium 02/01/22 02/02/22 02/02/22 19:55 05:51 05:51 MCV 96.4 MCH 30.8 MCHC 32.0 RDW 15.4 Plt Count 210 MPV 9.1 L Absolute Nucleated RBC 0.000 Nucleated RBC % (auto) 0.0 Anion Gap 12 Estim Creat Clear Calc 37.1 Estimated GFR 36 POC Glucose 236 H Random Glucose 190 H Calcium 9.6 D Magnesium 2.0 02/02/22 07:23 MCV MCH MCHC RDW Plt Count MPV Absolute Nucleated RBC Nucleated RBC % (auto) Anion Gap Estim Creat Clear Calc Estimated GFR POC Glucose 179 H Random Glucose Calcium Magnesium Assessment and Plan (1) Congestive heart failure: Status: Acute (2) Acute hypokalemia: Status: Acute (3) Persistent atrial fibrillation: Status: Acute Plan A 71 years old lady with PMH of CHF, AFib, diabetes, morbid obesity, chronic hypoxic failure on 2 L, COPD, MELANIE on CPAP who presents to the hospital with a complaint of worsening shortness of breath and lower extremity edema for the last 5 days. Acute on chronic hypoxic respiratory failure Secondary to diastolic CHF exacerbation Uses 2L oxygen at baseline, continue Acute on chronic diastolic CHF neg nearly 12 L thus far. bicarb and creatinine starting to trend up Bumex drip stopped Continue Metolazone 5 mg daily, add torsemide 40mg BID Monitor intake and output cardiology following Contraction alkalosis over diuresis continue Diamox due to bicarb trending up Atrial fibrillation with RVR, HR better controled Likely secondary to CHF exacerbation Not on any rate control medications Avoid pb blockers with acute CHF Continue Xarelto cardiology following Hypokalemia. Resolved continue replacement follow BMP closely CKD3 likely secondary to contraction alkalosis creatinine trending up slightly monitor renal function closely Type 2 diabetes with hyperglycemia diabetic diet SSI, Increase home dose Lantus MELANIE continue cpap DVT PPX-Xarelto Attending-Dr. Walsh The patient needs ongoing hospital stay for evaluation and treatment of acute hypoxic failure, CHF exacerbation and AFib with RVR to prevent possible decompensation. Quality Stroke Does the patient have a stroke diagnosis?: No VTE Prior VTE?: No VTE Risk Level:: Medical - moderate - high VTE Device Contraindication: Treatment Not Indicated VTE Drug Contraindication: N/A - Med Ordered
--- NOTE | 2022-02-02 11:05 | PM.PNCARD ---
Subjective Subjective Date of Service: 02/02/22 Interval history: Feeling better. Creatinine went up to 1.5 and came down to 1.4 this morning. She was still significantly negative despite holding the Bumex drip yesterday. Physical Exam Vital Signs: Last Vital Signs Temp 97.4 F 02/02/22 07:20 Pulse 98 02/02/22 07:32 Resp 20 02/02/22 07:32 BP 101/68 02/02/22 07:20 Pulse Ox 95 02/02/22 07:20 O2 Del Method 02/02/22 07:20 O2 Flow Rate 3 02/02/22 07:20 Oxygen Flow Rate 4 01/29/22 15:18 BMI result Body Mass Index 42.7 GENERAL APPEARANCE: Short of breath, on nasal cannula. NECK: no carotid bruit, elevated JVD. SKIN: no suspicious lesions, warm and dry. HEART: no murmurs, irregularly irregular rhythm. LUNGS: Crackles at bases bilaterally. ABDOMEN: soft, nontender. EXTREMITIES: 1+ edema PERIPHERAL PULSES: equal. NEUROLOGIC: No gross deficits, AAO X 3 Objective Labs and Meds Result diagrams: 02/02/22 05:51 02/02/22 05:51 Lab results: Laboratory Results - last 24 hr 02/01/22 02/01/22 02/01/22 11:52 14:37 15:24 WBC RBC Hgb Hct MCV MCH MCHC RDW Plt Count MPV Absolute Nucleated RBC Nucleated RBC % (auto) Sodium 140 Potassium 3.0 L Chloride 85 L Carbon Dioxide 43 H* Anion Gap 15 BUN 52 H Creatinine 1.54 H Estim Creat Clear Calc 34.3 Estimated GFR 33 POC Glucose 346 H 253 H Random Glucose 260 H Calcium 10.4 H Magnesium 02/01/22 02/02/22 02/02/22 19:55 05:51 05:51 WBC 9.4 RBC 3.86 L Hgb 11.9 L Hct 37.2 MCV 96.4 MCH 30.8 MCHC 32.0 RDW 15.4 Plt Count 210 MPV 9.1 L Absolute Nucleated RBC 0.000 Nucleated RBC % (auto) 0.0 Sodium 140 Potassium 3.4 Chloride 89 L Carbon Dioxide 42 H* Anion Gap 12 BUN 51 H Creatinine 1.42 H Estim Creat Clear Calc 37.1 Estimated GFR 36 POC Glucose 236 H Random Glucose 190 H Calcium 9.6 D Magnesium 2.0 02/02/22 07:23 WBC RBC Hgb Hct MCV MCH MCHC RDW Plt Count MPV Absolute Nucleated RBC Nucleated RBC % (auto) Sodium Potassium Chloride Carbon Dioxide Anion Gap BUN Creatinine Estim Creat Clear Calc Estimated GFR POC Glucose 179 H Random Glucose Calcium Magnesium Progress Note: A&P Assessment and plan (1) Congestive heart failure: Status: Acute (2) Persistent atrial fibrillation: Status: Acute Plan 71-year-old female with diastolic heart failure presenting with significant volume overload. Echo showing moderately increased right ventricular cavity size with moderately decreased right ventricular function. Still volume overloaded. Her creatinine was fluctuating yesterday and we decided to hold the Bumex drip. Her creatinine has improved despite being significant negative balance. I think she needs IV diuretics going forward and I am starting her on bolus doses of Bumex 2 mg IV b.i.d.. Continue the metolazone as before. Will eventually change her to torsemide 40 mg twice a day. Chronic atrial fibrillation. Would avoid beta-levi and Cardizem currently. If her rates are difficult to control then we will consider digoxin. Thank you for allowing me to participate in the care of your patient. Please feel free to contact me if you have any questions. Time Spent With Patient Time: Total time spent is greater than 50% in coordination of care (as documented) at patient's floor/unit and/or counseling patient: Progress Note: Quality Stroke Does the patient have a stroke diagnosis?: No Procedures Date of Service Date of Service: 02/02/22
[2022-02-02 11:29] LABS: Glucose, Whole Blood 237 mg/dL (60-115)
[2022-02-02] MEDS: Bumetanide 1 MG/4 ML VIAL 2 MG IVPUSH ×2 (11:43→15:55)
[2022-02-02 16:29] LABS: Glucose, Whole Blood 215 mg/dL (60-115)
[2022-02-02 20:41] LABS: Glucose, Whole Blood 238 mg/dL (60-115)
[2022-02-02] MEDS: Pravastatin Sodium 20 MG TABLET PO (22:09)
[2022-02-03] VITALS (7 sets, daily range): BP systolic 95–124; BP diastolic 56–75; PULSE 84–98; RESP 14–20; TEMP 35.9–36.4; O2SAT 90–97
[2022-02-03 07:28] LABS: Glucose, Whole Blood 191 mg/dL (60-115)
[2022-02-03 07:32] LABS: Anion Gap 13 (12-20); Blood Urea Nitrogen 53 mg/dL (9-16); Calcium 9.6 mg/dL (8.4-10.2); Carbon Dioxide 41 mmol/L (22-29); Chloride 84 mmol/L (96-108); Creatinine Clr Calc Pharmacy 42.8; Estimated Glomerular Filt Rate 35; Glucose Random 250 mg/dL (60-115); Potassium 3.1 mmol/L (3.3-5.1); Sodium 135 mmol/L (135-145)
[2022-02-03 08:20] LABS: Magnesium 2.1 mg/dL (1.6-2.6)
[2022-02-03] MEDS: Insulin Glargine,Hum.rec.anlog 100 UNIT/ML 10 ML VIAL 35 UNIT SUBCUT (08:57)
[2022-02-03] MEDS: Insulin Lispro 100 UNIT/ML 3 ML VIAL SUBCUT ×4 (08:58→23:04)
[2022-02-03] MEDS: metOLazone 5 MG TABLET PO (09:00)
[2022-02-03] MEDS: Potassium Chloride ER 20 MEQ TAB.ER.PRT 40 MEQ PO (09:00)
[2022-02-03] MEDS: allopurinoL 100 MG TABLET PO (09:00)
[2022-02-03] MEDS: Cholecalciferol (Vitamin D3) 25 MCG TABLET PO (09:01)
[2022-02-03] MEDS: Docusate Sodium 100 MG CAPSULE PO (09:01)
[2022-02-03] MEDS: Gabapentin 300 MG CAPSULE PO ×3 (09:01→23:04)
[2022-02-03] MEDS: Rivaroxaban 15 MG TABLET PO (09:02)
[2022-02-03] MEDS: Multivitamin TABLET 1 TAB PO (09:02)
[2022-02-03] MEDS: 0.9 % Sodium Chloride Flush 3 ML SYRINGE IVFLUSH ×3 (09:03→23:04)
--- NOTE | 2022-02-03 11:03 | P.PNCA_ITS ---
Subjective Subjective Date of Service: 02/03/22 Interval history: Feeling better, Still volume overloaded. Physical Exam Vital Signs: Last Vital Signs Temp 97.5 F 02/03/22 10:57 Pulse 98 02/03/22 10:57 Resp 18 02/03/22 10:57 BP 109/63 02/03/22 10:57 Pulse Ox 95 02/03/22 10:57 O2 Del Method 02/03/22 10:57 O2 Flow Rate 2 02/03/22 10:57 Oxygen Flow Rate 4 01/29/22 15:18 BMI result Body Mass Index 42.7 GENERAL APPEARANCE: Short of breath, on nasal cannula. NECK: no carotid bruit, elevated JVD. SKIN: no suspicious lesions, warm and dry. HEART: no murmurs, irregularly irregular rhythm. LUNGS: CTABL. ABDOMEN: soft, nontender. EXTREMITIES: 1+ edema PERIPHERAL PULSES: equal. NEUROLOGIC: No gross deficits, AAO X 3 Objective Labs and Meds Result diagrams: 02/02/22 05:51 02/03/22 05:51 Lab results: Laboratory Results - last 24 hr 02/02/22 02/02/22 02/02/22 11:14 16:24 20:37 Sodium Potassium Chloride Carbon Dioxide Anion Gap BUN Creatinine Estim Creat Clear Calc Estimated GFR POC Glucose 237 H 215 H 238 H Random Glucose Calcium Magnesium 02/03/22 02/03/22 05:51 07:07 Sodium 135 Potassium 3.1 L Chloride 84 L Carbon Dioxide 41 H* Anion Gap 13 BUN 53 H Creatinine 1.46 H Estim Creat Clear Calc 42.8 Estimated GFR 35 POC Glucose 191 H Random Glucose 250 H Calcium 9.6 Magnesium 2.1 Progress Note: A&P Assessment and plan (1) (HFpEF) heart failure with preserved ejection fraction: Status: Acute (2) Congestive heart failure: Status: Acute Plan 71-year-old female with diastolic heart failure presenting with significant volume overload. Echo showing moderately increased right ventricular cavity size with moderately decreased right ventricular function. Still volume o verloaded. Was on Bumex drip and now on bolus doses of Bumex 2 mg IV b.i.d.. Diuresing well. Continue the metolazone as before. Will eventually change her to torsemide 40 mg twice a day. Chronic atrial fibrillation. Would avoid beta-levi and Cardizem currently. She is hypokalemic. Potassium should be replaced and monitored closely. Once her electrolytes are stable she is on oral regimen then 0.125 mcg of digoxin Friday can reconsider if she has fast heart rates. Currently I would not favor starting it because of low potassium levels. Thank you for allowing me to participate in the care of your patient. Please feel free to contact me if you have any questions. Time Spent With Patient Time: Total time spent is greater than 50% in coordination of care (as documented) at patient's floor/unit and/or counseling patient: Progress Note: Quality Stroke Does the patient have a stroke diagnosis?: No Procedures Date of Service Date of Service: 02/03/22
--- NOTE | 2022-02-03 11:28 | HO.PM.IMPN ---
Subjective Subjective Date of Service: 02/03/22 Review of Systems Follow up CHF Feeling better, less swollen denies chest pain, sob Physical Exam Vital Signs: Vital Signs: Last Vital Signs Temp 97.5 F 02/03/22 10:57 Pulse 98 02/03/22 10:57 Resp 18 02/03/22 10:57 BP 109/63 02/03/22 10:57 Pulse Ox 95 02/03/22 10:57 O2 Del Method 02/03/22 10:57 O2 Flow Rate 2 02/03/22 10:57 Oxygen Flow Rate 4 01/29/22 15:18 BMI result Body Mass Index 42.7 Appearing in no acute distress lung sounds are clear to auscultation heart regular rate rhythm, clear S1, S2, +1 LE edema positive bowel sounds, abdomen is soft, nontender, obese neuro patient is alert x3, no focal deficits Objective Data Active Medications Acetaminophen (Acetaminophen 325 Mg Tablet) 650 mg PO Q6H PRN PRN Reason: Pain, Mild (Pain Scale 1-3) Albuterol Sulfate (Albuterol Sulfate 90 Mcg 8 Gm Inhaler) 2 puff INHALE Q6H PRN PRN Reason: shortness of breath or wheezing Allopurinol (Allopurinol 100 Mg Tablet) 100 mg PO DAILY [facility] [place] Last Admin: 02/03/22 09:00 Dose: 100 mg Documented By: GUMARO Bumetanide (Bumetanide 1 Mg/4 Ml Vial) 2 mg IVPUSH BID@0900,1700 [facility] [place]; Protocol Last Admin: 02/03/22 09:20 Dose: Not Given Documented By: GUMARO Non-Admin Reason: Physician Held Med Docusate Sodium (Docusate Sodium 100 Mg Capsule) 100 mg PO DAILY [facility] [place] Last Admin: 02/03/22 09:01 Dose: 100 mg Documented By: GUMARO Gabapentin (Gabapentin 300 Mg Capsule) 300 mg PO TID [facility] [place] Last Admin: 02/03/22 09:01 Dose: 300 mg Documented By: GUMARO Insulin Glargine (Insulin Glargine,Hum.Rec.Anlog 100 Unit/Ml 10 Ml Vial) 35 unit SUBCUT DAILY [facility] [place] Last Admin: 02/03/22 08:57 Dose: 35 unit Documented By: GUMARO Insulin Human Lispro (Insulin Lispro 100 Unit/Ml 3 Ml Vial) 0 unit SUBCUT QIDACHS [facility] [place]; Protocol Last Admin: 02/03/22 08:58 Dose: 2 unit Documented By: GUMARO Metolazone (Metolazone 5 Mg Tablet) 5 mg PO DAILY [facility] [place] Last Admin: 02/03/22 09:00 Dose: 5 mg Documented By: GUMARO Multivitamins/Vitamin C (Multivitamin Tablet) 1 tab PO DAILY [facility] [place] Last Admin: 02/03/22 09:02 Dose: 1 tab Documented By: GUMARO Ondansetron HCl (Ondansetron Hcl 4 Mg/2 Ml Vial) 4 mg IVPUSH Q8H PRN PRN Reason: Nausea and Vomiting Pharmacy Consult (Consult Rx Perform Med Rec) 1 each MISCELLANE ONCE PRN PRN Reason: Consult order Potassium Chloride (Potassium Chloride Er 20 Meq Tab.Er.Prt) 40 meq PO DAILY [facility] [place] Last Admin: 02/03/22 09:00 Dose: 40 meq Documented By: GUMARO Pravastatin Sodium (Pravastatin Sodium 20 Mg Tablet) 20 mg PO BEDTIME [facility] [place] Last Admin: 02/02/22 22:09 Dose: 20 mg Documented By: ADRIANA Psyllium Hydrophilic Mucilloid (Psyllium Seed 3.4 Gm Powd.Pack) 3.4 gm PO DAILY [facility] [place] Last Admin: 02/03/22 09:02 Dose: 3.4 gm Documented By: GUMARO Rivaroxaban (Rivaroxaban 15 Mg Tablet) 15 mg PO DAILY [facility] [place] Last Admin: 02/03/22 09:02 Dose: 15 mg Documented By: GUMARO Sodium Chloride (0.9 % Sodium Chloride Flush 3 Ml Syringe) 3 ml IVFLUSH QSHIFT [facility] [place] Last Admin: 02/03/22 09:03 Dose: 3 ml Documented By: GUMARO Spironolactone (Spironolactone 25 Mg Tablet) 25 mg PO BID@0900,1800 [facility] [place]; Protocol Last Admin: 02/03/22 09:20 Dose: Not Given Documented By: GUMARO Non-Admin Reason: Physician Held Med Tiotropium Sebastian (Tiotropium Sebastian 18 Mcg Cap.W.Dev) 1 puff INHALE RDAILY [facility] [place] Last Admin: 02/03/22 07:34 Dose: 1 puff Documented By: LALO Vitamin D (Cholecalciferol (Vitamin D3) 25 Mcg Tablet) 25 mcg PO DAILY [facility] Last Admin: 02/03/22 09:01 Dose: 25 mcg Documented By: GUMARO Labs CBC & Chem 7: 02/02/22 05:51 02/03/22 05:51 Labs: Laboratory Results - last 24 hr 02/02/22 02/02/22 02/02/22 11:14 16:24 20:37 Anion Gap Estim Creat Clear Calc Estimated GFR POC Glucose 237 H 215 H 238 H Random Glucose Calcium Magnesium 02/03/22 02/03/22 05:51 07:07 Anion Gap 13 Estim Creat Clear Calc 42.8 Estimated GFR 35 POC Glucose 191 H Random Glucose 250 H Calcium 9.6 Magnesium 2.1 Assessment and Plan (1) Congestive heart failure: Status: Acute (2) Acute hypokalemia: Status: Acute (3) Persistent atrial fibrillation: Status: Acute Plan A 71 years old lady with PMH of CHF, AFib, diabetes, morbid obesity, chronic hypoxic failure on 2 L, COPD, MELANIE on CPAP who presents to the hospital with a complaint of worsening shortness of breath and lower extremity edema for the last 5 days. Acute on chronic hypoxic respiratory failure, Secondary to diastolic CHF exacerbation Uses 2L oxygen at baseline, continue neg nearly 12 L thus far. bicarb and creatinine starting to trend up Bumex drip stopped, IV bumex BID 2mg Continue Metolazone 5 mg daily, aldactone 25mg BID Monitor intake and output cardiology following Hypokalemia. 3.1 continue replacement follow BMP closely Contraction alkalosis over diuresis Diamox due to bicarb trending up, completed Atrial fibrillation with RVR, HR better controlled Likely secondary to CHF exacerbation Not on any rate control medications Avoid pb blockers with acute CHF Continue Xarelto cardiology following CKD3 likely secondary to contraction alkalosis creatinine trending up slightly monitor renal function closely Type 2 diabetes with hyperglycemia diabetic diet SSI, Increase home dose Lantus MELANIE continue cpap DVT PPX-Xarelto Attending-Dr. Walsh The patient needs ongoing hospital stay for evaluation and treatment of acute hypoxic failure, CHF exacerbation and AFib with RVR to prevent possible decompensation. Quality Stroke Does the patient have a stroke diagnosis?: No VTE Prior VTE?: No VTE Risk Level:: Medical - moderate - high VTE Device Contraindication: Treatment Not Indicated VTE Drug Contraindication: N/A - Med Ordered
[2022-02-03 11:32] LABS: Glucose, Whole Blood 247 mg/dL (60-115)
[2022-02-03 16:37] LABS: Glucose, Whole Blood 227 mg/dL (60-115)
[2022-02-03 20:49] LABS: Glucose, Whole Blood 300 mg/dL (60-115)
[2022-02-03] MEDS: Pravastatin Sodium 20 MG TABLET PO (23:04)
[2022-02-04] VITALS (8 sets, daily range): BP systolic 105–145; BP diastolic 57–82; PULSE 85–102; RESP 16–20; TEMP 36.4–37.1; O2SAT 94–95
[2022-02-04 06:40] LABS: Anion Gap 10 (12-20); Blood Urea Nitrogen 42 mg/dL (9-16); Calcium 9.1 mg/dL (8.4-10.2); Carbon Dioxide 38 mmol/L (22-29); Chloride 88 mmol/L (96-108); Estimated Glomerular Filt Rate 46; Glucose Random 235 mg/dL (60-115); Potassium 2.9 mmol/L (3.3-5.1); Sodium 133 mmol/L (135-145)
[2022-02-04 07:17] LABS: Glucose, Whole Blood 193 mg/dL (60-115)
[2022-02-04] MEDS: Insulin Glargine,Hum.rec.anlog 100 UNIT/ML 10 ML VIAL 35 UNIT SUBCUT (07:45)
[2022-02-04] MEDS: Insulin Lispro 100 UNIT/ML 3 ML VIAL SUBCUT ×4 (07:46→21:12)
[2022-02-04] MEDS: Potassium Chloride ER 20 MEQ TAB.ER.PRT PO (07:47)
[2022-02-04] MEDS: Potassium Chloride ER 20 MEQ TAB.ER.PRT 40 MEQ PO (07:47)
[2022-02-04] MEDS: Docusate Sodium 100 MG CAPSULE PO (07:47)
[2022-02-04] MEDS: Spironolactone 25 MG TABLET PO ×2 (07:48→17:47)
[2022-02-04] MEDS: Gabapentin 300 MG CAPSULE PO ×3 (07:49→21:11)
[2022-02-04] MEDS: metOLazone 5 MG TABLET PO (07:49)
[2022-02-04] MEDS: Rivaroxaban 15 MG TABLET PO (07:49)
[2022-02-04] MEDS: Multivitamin TABLET 1 TAB PO (07:49)
[2022-02-04] MEDS: Cholecalciferol (Vitamin D3) 25 MCG TABLET PO (07:49)
[2022-02-04] MEDS: allopurinoL 100 MG TABLET PO (07:49)
[2022-02-04] MEDS: 0.9 % Sodium Chloride Flush 3 ML SYRINGE IVFLUSH ×3 (08:00→21:12)
[2022-02-04] MEDS: Bumetanide 1 MG/4 ML VIAL 2 MG IVPUSH ×2 (08:12→17:47)
--- NOTE | 2022-02-04 09:18 | P.PNIM_ITS ---
Subjective Subjective Date of Service: 02/04/22 Review of Systems Follow up CHF Feeling better, less swollen denies chest pain, sob Physical Exam Vital Signs: Vital Signs: Last Vital Signs Temp 97.6 F 02/04/22 07:36 Pulse 95 02/04/22 08:00 Resp 20 02/04/22 08:00 BP 145/57 H 02/04/22 07:36 Pulse Ox 94 02/04/22 07:36 O2 Del Method 02/04/22 07:36 O2 Flow Rate 2 02/04/22 07:36 Oxygen Flow Rate 4 01/29/22 15:18 BMI result Body Mass Index 42.7 Appearing in no acute distress lung sounds are clear to auscultation heart regular rate rhythm, clear S1, S2 positive bowel sounds, abdomen is soft, nontender neuro patient is alert x3, no focal deficits LE edema, improving chronic skin changes from edema Objective Data Active Medications Acetaminophen (Acetaminophen 325 Mg Tablet) 650 mg PO Q6H PRN PRN Reason: Pain, Mild (Pain Scale 1-3) Albuterol Sulfate (Albuterol Sulfate 90 Mcg 8 Gm Inhaler) 2 puff INHALE Q6H PRN PRN Reason: shortness of breath or wheezing Allopurinol (Allopurinol 100 Mg Tablet) 100 mg PO DAILY [facility] Last Admin: 02/04/22 07:49 Dose: 100 mg Documented By: EARLE Bumetanide (Bumetanide 1 Mg/4 Ml Vial) 2 mg IVPUSH BID@0900,1700 [facility]; Protocol Last Admin: 02/04/22 08:12 Dose: 2 mg Documented By: EARLE Docusate Sodium (Docusate Sodium 100 Mg Capsule) 100 mg PO DAILY [facility] Last Admin: 02/04/22 07:47 Dose: 100 mg Documented By: EARLE Gabapentin (Gabapentin 300 Mg Capsule) 300 mg PO TID [facility] Last Admin: 02/04/22 07:49 Dose: 300 mg Documented By: EARLE Insulin Glargine (Insulin Glargine,Hum.Rec.Anlog 100 Unit/Ml 10 Ml Vial) 35 unit SUBCUT DAILY [facility] Last Admin: 02/04/22 07:45 Dose: 35 unit Documented By: EARLE Insulin Human Lispro (Insulin Lispro 100 Unit/Ml 3 Ml Vial) 0 unit SUBCUT QIDACHS [facility]; Protocol Last Admin: 02/04/22 07:46 Dose: 2 unit Documented By: EARLE Metolazone (Metolazone 5 Mg Tablet) 5 mg PO DAILY [facility] Last Admin: 02/04/22 07:49 Dose: 5 mg Documented By: EARLE Multivitamins/Vitamin C (Multivitamin Tablet) 1 tab PO DAILY [facility] Last Admin: 02/04/22 07:49 Dose: 1 tab Documented By: EARLE Ondansetron HCl (Ondansetron Hcl 4 Mg/2 Ml Vial) 4 mg IVPUSH Q8H PRN PRN Reason: Nausea and Vomiting Pharmacy Consult (Consult Rx Perform Med Rec) 1 each MISCELLANE ONCE PRN PRN Reason: Consult order Potassium Chloride (Potassium Chloride Er 20 Meq Tab.Er.Prt) 40 meq PO DAILY [facility] Last Admin: 02/04/22 07:47 Dose: 40 meq Documented By: EARLE Pravastatin Sodium (Pravastatin Sodium 20 Mg Tablet) 20 mg PO BEDTIME [facility] Last Admin: 02/03/22 23:04 Dose: 20 mg Documented By: CONCEPCIÓN Psyllium Hydrophilic Mucilloid (Psyllium Seed 3.4 Gm Powd.Pack) 3.4 gm PO DAILY [facility] Last Admin: 02/04/22 07:46 Dose: 3.4 gm Documented By: EARLE Rivaroxaban (Rivaroxaban 15 Mg Tablet) 15 mg PO DAILY [facility] Last Admin: 02/04/22 07:49 Dose: 15 mg Documented By: EARLE Sodium Chloride (0.9 % Sodium Chloride Flush 3 Ml Syringe) 3 ml IVFLUSH QSHIFT [facility] Last Admin: 02/04/22 08:00 Dose: 3 ml Documented By: EARLE Spironolactone (Spironolactone 25 Mg Tablet) 25 mg PO BID@0900,1800 [facility]; Protocol Last Admin: 02/04/22 07:48 Dose: 25 mg Documented By: EARLE Tiotropium [place] (Tiotropium [place] 18 Mcg Cap.W.Dev) 1 puff INHALE RDAILY [facility] Last Admin: 02/04/22 07:58 Dose: 1 puff Documented By: LALO Vitamin D (Cholecalciferol (Vitamin D3) 25 Mcg Tablet) 25 mcg PO DAILY [facility] Last Admin: 02/04/22 07:49 Dose: 25 mcg Documented By: EARLE Labs CBC & Chem 7: 02/02/22 05:51 02/04/22 05:36 Labs: Laboratory Results - last 24 hr 02/03/22 02/03/22 02/03/22 11:02 15:58 20:24 Anion Gap Estim Creat Clear Calc Estimated GFR POC Glucose 247 H 227 H 300 H Random Glucose Calcium 02/04/22 02/04/22 05:36 07:08 Anion Gap 10 L Estim Creat Clear Calc 54.0 Estimated GFR 46 POC Glucose 193 H Random Glucose 235 H Calcium 9.1 Microbiology Microbiology Results: Microbiology 01/29/22 15:44 Blood Culture - Final Blood - Venous No growth after 5 days. 01/29/22 15:43 Blood Culture - Final Blood - Venous No growth after 5 days. Assessment and Plan (1) Congestive heart failure: Status: Acute (2) Acute hypokalemia: Status: Acute (3) Persistent atrial fibrillation: Status: Acute Plan A 71 years old lady with PMH of CHF, AFib, diabetes, morbid obesity, chronic hypoxic failure on 2 L, COPD, MELANIE on CPAP who presents to the hospital with a complaint of worsening shortness of breath and lower extremity edema for the last 5 days. Acute on chronic hypoxic respiratory failure, Secondary to diastolic CHF exacerbation. Resolved Uses 2L oxygen at baseline, continue neg nearly 15 L thus far. bicarb and creatinine starting to trend up Bumex drip stopped, IV bumex BID 2mg Continue Metolazone 5 mg daily, aldactone 25mg BID Monitor intake and output cardiology following Hypokalemia. 2.9 continue replacement follow BMP closely Contraction alkalosis over diuresis Diamox due to bicarb trending up, completed Atrial fibrillation with RVR, HR better controlled Likely secondary to CHF exacerbation Not on any rate control medications Avoid pb blockers with acute CHF Continue Xarelto cardiology following CKD3. Trending down likely secondary to contraction alkalosis monitor renal function closely Type 2 diabetes with hyperglycemia diabetic diet SSI, Increase home dose Lantus MELANIE continue cpap DVT PPX-Xarelto Attending-Dr. Walsh The patient needs ongoing hospital stay for evaluation and treatment of acute hypoxic failure, CHF exacerbation and AFib with RVR to prevent possible decompensation. Still requiring IV diuresis Quality Stroke Does the patient have a stroke diagnosis?: No VTE Prior VTE?: No VTE Risk Level:: Medical - moderate - high VTE Device Contraindication: Treatment Not Indicated VTE Drug Contraindication: N/A - Med Ordered
--- NOTE | 2022-02-04 09:33 | PM.PNCARD ---
Subjective Subjective Date of Service: 02/04/22 Principal diagnosis: Congestive heart failure, atrial fibrillation Interval history: Ragini says that she has been doing well. She has overall negative balance of 16 L since admission. Noted to still have marked hypokalemia. However she says that she is breathing a lot better in the leg swelling is much improved. No lightheadedness, chest pain, palpitations. Atrial fibrillation rate has been adequately controlled. Review of Systems Constitutional: Reports lethargy and Reports weakness Cardiovascular: Denies chest pain, Reports leg edema, Denies lightheadedness, Denies Loss of Consciousness, Denies palpitations and Reports dyspnea on exertion Respiratory: Reports dyspnea on exertion Gastrointestinal: Reports no additional gastrointestinal complaints Genitourinary: Reports no additional female genitourinary complaints Musculoskeletal: Reports no additional musculoskeletal complaints Skin/Breast: Reports system reviewed and no additional complaints, except as docu Reports system reviewed and no additional complaints, except as documented and Reports weakness Psychiatric: Reports no additional psychiatric complaints Endocrine: Reports no additional endocrine complaints and Denies palpitations Hematologic/Lymphatic: Reports no additional hematologic/lymphatic complaints Allergic/Immunologic: Reports no additional allergic/immunologic complaints Physical Exam Vital Signs: Last Vital Signs Temp 97.6 F 02/04/22 07:36 Pulse 95 02/04/22 08:00 Resp 20 02/04/22 08:00 BP 145/57 H 02/04/22 07:36 Pulse Ox 94 02/04/22 07:36 O2 Del Method 02/04/22 07:36 O2 Flow Rate 2 02/04/22 07:36 Oxygen Flow Rate 4 01/29/22 15:18 BMI result Body Mass Index 42.7 GENERAL APPEARANCE: Short of breath, on nasal cannula. NECK: no carotid bruit, elevated JVD. SKIN: no suspicious lesions, warm and dry. HEART: no murmurs, irregularly irregular rhythm. LUNGS: CTABL. ABDOMEN: soft, nontender. EXTREMITIES: 1+ edema PERIPHERAL PULSES: equal. NEUROLOGIC: No gross deficits, AAO X 3 Const General: cooperative, alert, awake and in distress mild and respiratory Nutritional Appearance: obese morbidly obese Orientation/consciousness: patient oriented x3 Limitations: ambulation with walker Neck Neck: Yes JVD Resp Auscultation: clear to auscultation bilaterally and diminished lung sounds Cardio Rhythm: abnormal rhythm irregularly irregular Heart sounds: S1 normal heart sound present and S2 normal heart sound present Skin General skin exam: no rashes or lesions noted and ecchymosis Neuro General: patient oriented x3 and no focal motor deficits Extrem General: No clubbing, No cyanosis and Yes edema Objective Labs and Meds Result diagrams: 02/02/22 05:51 02/04/22 05:36 Lab results: Laboratory Results - last 24 hr 02/03/22 02/03/22 02/03/22 11:02 15:58 20:24 Sodium Potassium Chloride Carbon Dioxide Anion Gap BUN Creatinine Estim Creat Clear Calc Estimated GFR POC Glucose 247 H 227 H 300 H Random Glucose Calcium 02/04/22 02/04/22 05:36 07:08 Sodium 133 L Potassium 2.9 L Chloride 88 L Carbon Dioxide 38 H Anion Gap 10 L BUN 42 H Creatinine 1.16 Estim Creat Clear Calc 54.0 Estimated GFR 46 POC Glucose 193 H Random Glucose 235 H Calcium 9.1 Progress Note: A&P Assessment and plan (1) CHF exacerbation: Status: Acute Assessment and Plan: Advancing difficult to treat congestive heart failure as outpatient with predominant right heart failure related to advanced diastolic dysfunction chronic atrial fibrillation, cor pulmonale as well as sleep apnea and morbid obesity. Has done well since hospitalization has a negative balance of 16 L with still appears to be mildly fluid overloaded. Continue IV diuresis for 1 more day. Continue spironolactone therapy. Blood pressure is elevated this can be further increased to 50 mg. Also add Jardiance 10 mg to her regimen. Continue CPAP therapy. Continue oxygen supplementation. Overall prognosis is guarded. Heart failure management was discussed with her in details and advised to take p.r.n. metolazone at home when she develops weight gain and early signs of heart failure. She shows understanding. Low-salt diet was recommended as well. Aggressively replace potassium with IV potassium dosing and repeat potassium later today. Check BMP and BNP today. Increase activity and is currently undergoing physical therapy. (2) Persistent atrial fibrillation: Status: Acute Assessment and Plan: Persistent atrial fibrillation, currently rate controlled. Continue rate control strategy. Has failed rhythm control approach in the past. Continue monitor full disclosure cardiac telemetry. Continue oral anticoagulation with Xarelto but can be switched to 20 mg given that her GFR is improving. Will follow up with you. Time Spent With Patient Time: Total time spent is greater than 50% in coordination of care (as documented) at patient's floor/unit and/or counseling patient: Progress Note: Quality Stroke Does the patient have a stroke diagnosis?: No Procedures Date of Service Date of Service: 02/04/22
[2022-02-04 11:03] LABS: Glucose, Whole Blood 303 mg/dL (60-115)
[2022-02-04] MEDS: Empagliflozin 10 MG TABLET PO (11:46)
--- NOTE | 2022-02-04 13:27 | MHC.CM.NN ---
PER ROUNDS TODAY PT MAY BE READY FOR DC TOMORROW TO STR IF PT AGREEABLE
[2022-02-04 15:26] LABS: Glucose, Whole Blood 223 mg/dL (60-115)
[2022-02-04 19:26] LABS: Glucose, Whole Blood 284 mg/dL (60-115)
[2022-02-04] MEDS: Pravastatin Sodium 20 MG TABLET PO (21:11)
[2022-02-04] MEDS: Acetaminophen 325 MG TABLET 650 MG PO (21:21)
[2022-02-05] VITALS (8 sets, daily range): BP systolic 99–119; BP diastolic 53–69; PULSE 87–104; RESP 16–20; TEMP 36.4–36.6; O2SAT 93–98; BMI 40.3
[2022-02-05 07:05] LABS: B Type Natriuretic Peptide 332 pg/mL (<100)
[2022-02-05 07:19] LABS: Glucose, Whole Blood 230 mg/dL (60-115)
[2022-02-05 07:23] LABS: Anion Gap 13 (12-20); Blood Urea Nitrogen 46 mg/dL (9-16); Calcium 9.6 mg/dL (8.4-10.2); Carbon Dioxide 43 mmol/L (22-29); Chloride 84 mmol/L (96-108); Creatinine Clr Calc Pharmacy 45.1; Estimated Glomerular Filt Rate 37; Glucose Random 210 mg/dL (60-115); Potassium 2.8 mmol/L (3.3-5.1); Sodium 137 mmol/L (135-145)
[2022-02-05] MEDS: Empagliflozin 10 MG TABLET PO (08:06)
[2022-02-05] MEDS: Gabapentin 300 MG CAPSULE PO ×3 (08:06→20:48)
[2022-02-05] MEDS: metOLazone 5 MG TABLET PO (08:06)
[2022-02-05] MEDS: Cholecalciferol (Vitamin D3) 25 MCG TABLET PO (08:06)
[2022-02-05] MEDS: Bumetanide 1 MG/4 ML VIAL 2 MG IVPUSH (08:07)
[2022-02-05] MEDS: Insulin Glargine,Hum.rec.anlog 100 UNIT/ML 10 ML VIAL 35 UNIT SUBCUT (08:07)
[2022-02-05] MEDS: Insulin Lispro 100 UNIT/ML 3 ML VIAL SUBCUT ×5 (08:07→20:49)
[2022-02-05] MEDS: Potassium Chloride ER 20 MEQ TAB.ER.PRT 60 MEQ PO (08:07)
[2022-02-05] MEDS: Docusate Sodium 100 MG CAPSULE PO (08:07)
[2022-02-05] MEDS: Multivitamin TABLET 1 TAB PO (08:07)
[2022-02-05] MEDS: allopurinoL 100 MG TABLET PO (08:07)
[2022-02-05] MEDS: Spironolactone 25 MG TABLET PO ×2 (08:07→18:37)
--- NOTE | 2022-02-05 09:41 | P.PNCA_ITS ---
Subjective Subjective Date of Service: 02/05/22 Principal diagnosis: Congestive heart failure, atrial fibrillation Interval history: Patient has diuresed further. Overall diuresis about 20 L. creatinine is started rising today. Potassium is still significantly low. Remains in atrial fibrillation with controlled rate. Her shortness of breath has significantly improved. Review of Systems Review of Systems Yes all other systems are reviewed and are negative Physical Exam Vital Signs: Last Vital Signs Temp 97.8 F 02/05/22 07:01 Pulse 92 02/05/22 08:59 Resp 20 02/05/22 08:59 BP 119/67 02/05/22 07:01 Pulse Ox 95 02/05/22 07:01 O2 Del Method 02/05/22 07:01 O2 Flow Rate 2 02/05/22 07:01 Oxygen Flow Rate 4 01/29/22 15:18 BMI result Body Mass Index 60.6 GENERAL APPEARANCE: Short of breath, on nasal cannula. NECK: no carotid bruit, elevated JVD. SKIN: no suspicious lesions, warm and dry. HEART: no murmurs, irregularly irregular rhythm. LUNGS: CTABL. ABDOMEN: soft, nontender. EXTREMITIES: 1+ edema PERIPHERAL PULSES: equal. NEUROLOGIC: No gross deficits, AAO X 3 Const General: cooperative, alert, awake and in distress mild and respiratory Nutritional Appearance: obese morbidly obese Orientation/consciousness: patient oriented x3 Limitations: ambulation with walker Neck Neck: Yes no JVD Resp Auscultation: clear to auscultation bilaterally and diminished lung sounds Cardio Jugular venous distension: no JVD Rhythm: abnormal rhythm irregularly irregular Heart sounds: S1 normal heart sound present and S2 normal heart sound present Skin General skin exam: no rashes or lesions noted and ecchymosis Neuro General: patient oriented x3 and no focal motor deficits Extrem General: No clubbing, No cyanosis and Yes edema Objective Labs and Meds Result diagrams: 02/02/22 05:51 02/05/22 05:41 Lab results: Laboratory Results - last 24 hr 02/04/22 02/04/22 02/04/22 05:36 10:57 15:19 Sodium Potassium Chloride Carbon Dioxide Anion Gap BUN Creatinine Estim Creat Clear Calc Estimated GFR POC Glucose 303 H 223 H Random Glucose Calcium Magnesium 2.0 B-Natriuretic Peptide 02/04/22 02/05/22 02/05/22 19:21 05:41 05:41 Sodium 137 Potassium 2.8 L Chloride 84 L Carbon Dioxide 43 H* Anion Gap 13 BUN 46 H Creatinine 1.39 Estim Creat Clear Calc 45.1 Estimated GFR 37 POC Glucose 284 H Random Glucose 210 H Calcium 9.6 Magnesium B-Natriuretic Peptide 332 H 02/05/22 06:56 Sodium Potassium Chloride Carbon Dioxide Anion Gap BUN Creatinine Estim Creat Clear Calc Estimated GFR POC Glucose 230 H Random Glucose Calcium Magnesium B-Natriuretic Peptide Progress Note: A&P Assessment and plan (1) CHF exacerbation: Status: Acute Assessment and Plan: CHF exacerbation gradual increase in her volume status at home. This is difficult to manage. Clinically currently appears to be euvolemic and a creatinine is rising suggestive intravascular volume depletion. Will switch her to overall Bumex 2 mg b.i.d.. May need metolazone p.r.n. as needed. Heart failure management was discussed again. Daily weight monitoring at home is extremely important and take metolazone as soon as possible once she starts getting fluid. May consider CardioMEMS device for her which will help with man agement of her volume status. Continue Jardiance and Aldactone. Continue CPAP therapy. Continue oxygen supplementation. She remains significantly hypokalemic and requires aggressive repletion of potassium to prevent cardiac arrhythmias prior to discharge. Consider IV supplementation. (2) Persistent atrial fibrillation: Status: Acute Assessment and Plan: Persistent atrial fibrillation with adequate rate control. Continue rate control strategy. Has failed rhythm control approach. GFR is lower again. Reduce Xarelto to 15 mg. Will continue to follow Time Spent With Patient Time: Total time spent is greater than 50% in coordination of care (as documented) at patient's floor/unit and/or counseling patient: Progress Note: Quality Stroke Does the patient have a stroke diagnosis?: No Procedures Date of Service Date of Service: 02/05/22
--- NOTE | 2022-02-05 10:35 | HO.PM.IMPN ---
Subjective Subjective Date of Service: 02/05/22 Review of Systems Follow up CHF Feeling better, less swollen denies chest pain, sob Physical Exam Vital Signs: Vital Signs: Last Vital Signs Temp 97.8 F 02/05/22 07:01 Pulse 92 02/05/22 08:59 Resp 20 02/05/22 08:59 BP 119/67 02/05/22 07:01 Pulse Ox 95 02/05/22 07:01 O2 Del Method 02/05/22 07:01 O2 Flow Rate 2 02/05/22 07:01 Oxygen Flow Rate 4 01/29/22 15:18 BMI result Body Mass Index 60.6 Appearing in no acute distress lung sounds are clear to auscultation heart regular rate rhythm, clear S1, S2 positive bowel sounds, abdomen is soft, nontender neuro patient is alert x3, no focal deficits chronic LE edema Objective Data Active Medications Acetaminophen (Acetaminophen 325 Mg Tablet) 650 mg PO Q6H PRN PRN Reason: Pain, Mild (Pain Scale 1-3) Last Admin: 02/04/22 21:21 Dose: 650 mg Documented By: CONCEPCIÓN Albuterol Sulfate (Albuterol Sulfate 90 Mcg 8 Gm Inhaler) 2 puff INHALE Q6H PRN PRN Reason: shortness of breath or wheezing Allopurinol (Allopurinol 100 Mg Tablet) 100 mg PO DAILY [facility] Last Admin: 02/05/22 08:07 Dose: 100 mg Documented By: LAINEY-ALVARADO Bumetanide (Bumetanide 1 Mg/4 Ml Vial) 2 mg IVPUSH BID@0900,1700 [facility]; Protocol Last Admin: 02/05/22 08:07 Dose: 2 mg Documented By: LAINEY-ALVARADO Docusate Sodium (Docusate Sodium 100 Mg Capsule) 100 mg PO DAILY [facility] Last Admin: 02/05/22 08:07 Dose: 100 mg Documented By: LAINEY-ALVARADO Empagliflozin (Empagliflozin 10 Mg Tablet) 10 mg PO DAILY [facility] Last Admin: 02/05/22 08:06 Dose: 10 mg Documented By: LIANEY-ALVARADO Gabapentin (Gabapentin 300 Mg Capsule) 300 mg PO TID [facility] Last Admin: 02/05/22 08:06 Dose: 300 mg Documented By: LAINEY-ALVARADO Insulin Glargine (Insulin Glargine,Hum.Rec.Anlog 100 Unit/Ml 10 Ml Vial) 35 unit SUBCUT DAILY [facility] Last Admin: 02/05/22 08:07 Dose: 35 unit Documented By: JULIO Insulin Human Lispro (Insulin Lispro 100 Unit/Ml 3 Ml Vial) 0 unit SUBCUT QIDACHS [facility]; Protocol Last Admin: 02/05/22 08:07 Dose: 4 unit Documented By: JULIO Metolazone (Metolazone 5 Mg Tablet) 5 mg PO DAILY [facility] Last Admin: 02/05/22 08:06 Dose: 5 mg Documented By: JULIO Multivitamins/Vitamin C (Multivitamin Tablet) 1 tab PO DAILY [facility] Last Admin: 02/05/22 08:07 Dose: 1 tab Documented By: JULIO Ondansetron HCl (Ondansetron Hcl 4 Mg/2 Ml Vial) 4 mg IVPUSH Q8H PRN PRN Reason: Nausea and Vomiting Pharmacy Consult (Consult Rx Perform Med Rec) 1 each MISCELLANE ONCE PRN PRN Reason: Consult order Potassium Chloride (Potassium Chloride Er 20 Meq Tab.Er.Prt) 60 meq PO DAILY [facility] Last Admin: 02/05/22 08:07 Dose: 60 meq Documented By: JULIO Pravastatin Sodium (Pravastatin Sodium 20 Mg Tablet) 20 mg PO BEDTIME [facility] Last Admin: 02/04/22 21:11 Dose: 20 mg Documented By: CONCEPCIÓN Psyllium Hydrophilic Mucilloid (Psyllium Seed 3.4 Gm Powd.Pack) 3.4 gm PO DAILY [facility] Last Admin: 02/05/22 08:06 Dose: 3.4 gm Documented By: JULIO Rivaroxaban (Rivaroxaban 20 Mg Tablet) 20 mg PO DAILY@1700 [facility] Sodium Chloride (0.9 % Sodium Chloride Flush 3 Ml Syringe) 3 ml IVFLUSH QSHIFT [facility] Last Admin: 02/05/22 07:24 Dose: Not Given Documented By: JULIO Non-Admin Reason: assessed Spironolactone (Spironolactone 25 Mg Tablet) 25 mg PO BID@0900,1800 [facility]; Protocol Last Admin: 02/05/22 08:07 Dose: 25 mg Documented By: JULIO Tiotropium [place] (Tiotropium [place] 18 Mcg Cap.W.Dev) 1 puff INHALE RDAILY [facility] Last Admin: 02/05/22 08:59 Dose: 1 puff Documented By: DESMOND Vitamin D (Cholecalciferol (Vitamin D3) 25 Mcg Tablet) 25 mcg PO DAILY [facility] Last Admin: 02/05/22 08:06 Dose: 25 mcg Documented By: JULIO Labs CBC & Chem 7: 02/02/22 05:51 02/05/22 05:41 Labs: Laboratory Results - last 24 hr 02/04/22 02/04/22 02/04/22 10:57 15:19 19:21 Anion Gap Estim Creat Clear Calc Estimated GFR POC Glucose 303 H 223 H 284 H Random Glucose Calcium B-Natriuretic Peptide 02/05/22 02/05/22 02/05/22 05:41 05:41 06:56 Anion Gap 13 Estim Creat Clear Calc 45.1 Estimated GFR 37 POC Glucose 230 H Random Glucose 210 H Calcium 9.6 B-Natriuretic Peptide 332 H Assessment and Plan (1) Congestive heart failure: Status: Acute (2) Acute hypokalemia: Status: Acute (3) Persistent atrial fibrillation: Status: Acute Plan A 71 years old lady with PMH of CHF, AFib, diabetes, morbid obesity, chronic hypoxic failure on 2 L, COPD, MELANIE on CPAP who presents to the hospital with a complaint of worsening shortness of breath and lower extremity edema for the last 5 days. Acute on chronic hypoxic respiratory failure, Secondary to diastolic CHF exacerbation. Resolved Uses 2L oxygen at baseline, continue neg nearly 15 L thus far. bicarb and creatinine starting to trend up Bumex drip stopped, IV bumex completed will change to oral bumex 2mg BID Continue Metolazone 5 mg daily, aldactone 25mg BID Monitor intake and output cardiology following Hypokalemia. 2.9 needs more aggressive replacement, will give IV and po follow BMP closely Contraction alkalosis over diuresis Diamox due to bicarb trending up, completed Atrial fibrillation with RVR, HR better controlled Likely secondary to CHF exacerbation Not on any rate control medications Avoid pb blockers with acute CHF Continue Xarelto cardiology following CKD3. Trending down likely secondary to contraction alkalosis monitor renal function closely Type 2 diabetes with hyperglycemia diabetic diet SSI, Increase home dose Lantus MELANIE continue cpap DVT PPX-Xarelto Attending-Dr. Walsh The patient needs ongoing hospital stay for evaluation and treatment of acute hypoxic failure, CHF exacerbation and AFib with RVR to prevent possible decompensation. Now requiring aggressive potassium replacement Quality Stroke Does the patient have a stroke diagnosis?: No VTE Prior VTE?: No VTE Risk Level:: Medical - moderate - high VTE Device Contraindication: Treatment Not Indicated VTE Drug Contraindication: N/A - Med Ordered
--- NOTE | 2022-02-05 10:58 | HO.PM.IMPN ---
Subjective Subjective Date of Service: 02/05/22 Review of Systems Follow up CHF Feeling better, less swollen denies chest pain, sob Physical Exam Vital Signs: Vital Signs: Last Vital Signs Temp 97.8 F 02/05/22 07:01 Pulse 92 02/05/22 08:59 Resp 20 02/05/22 08:59 BP 119/67 02/05/22 07:01 Pulse Ox 95 02/05/22 07:01 O2 Del Method 02/05/22 07:01 O2 Flow Rate 2 02/05/22 07:01 Oxygen Flow Rate 4 01/29/22 15:18 BMI result Body Mass Index 60.6 Appearing in no acute distress lung sounds are clear to auscultation heart regular rate rhythm, clear S1, S2, chronic LE edema, some dry skin noted positive bowel sounds, abdomen is soft, nontender neuro patient is alert x3, no focal deficits Objective Data Active Medications Acetaminophen (Acetaminophen 325 Mg Tablet) 650 mg PO Q6H PRN PRN Reason: Pain, Mild (Pain Scale 1-3) Last Admin: 02/04/22 21:21 Dose: 650 mg Documented By: CONCEPCIÓN Albuterol Sulfate (Albuterol Sulfate 90 Mcg 8 Gm Inhaler) 2 puff INHALE Q6H PRN PRN Reason: shortness of breath or wheezing Allopurinol (Allopurinol 100 Mg Tablet) 100 mg PO DAILY [facility] Last Admin: 02/05/22 08:07 Dose: 100 mg Documented By: LAINEY-SOFFA Bumetanide (Bumetanide 1 Mg Tablet) 2 mg PO BID@0800,1700 [facility]; Protocol Docusate Sodium (Docusate Sodium 100 Mg Capsule) 100 mg PO DAILY [facility] Last Admin: 02/05/22 08:07 Dose: 100 mg Documented By: LAINEY-SOFFA Empagliflozin (Empagliflozin 10 Mg Tablet) 10 mg PO DAILY [facility] Last Admin: 02/05/22 08:06 Dose: 10 mg Documented By: LAINEY-SOFFA Gabapentin (Gabapentin 300 Mg Capsule) 300 mg PO TID [facility] Last Admin: 02/05/22 08:06 Dose: 300 mg Documented By: LAINEY-SOFFA Potassium Chloride () 10 meq in 100 mls @ 100 mls/hr IV Q1H [facility] Stop: 02/05/22 14:59 Insulin Glargine (Insulin Glargine,Hum.Rec.Anlog 100 Unit/Ml 10 Ml Vial) 35 unit SUBCUT DAILY [facility] Last Admin: 02/05/22 08:07 Dose: 35 unit Documented By: JULIO Insulin Human Lispro (Insulin Lispro 100 Unit/Ml 3 Ml Vial) 0 unit SUBCUT QIDACHS [facility]; Protocol Last Admin: 02/05/22 08:07 Dose: 4 unit Documented By: JULIO Metolazone (Metolazone 5 Mg Tablet) 5 mg PO DAILY [facility] Last Admin: 02/05/22 08:06 Dose: 5 mg Documented By: JULIO Multivitamins/Vitamin C (Multivitamin Tablet) 1 tab PO DAILY [facility] Last Admin: 02/05/22 08:07 Dose: 1 tab Documented By: JULIO Ondansetron HCl (Ondansetron Hcl 4 Mg/2 Ml Vial) 4 mg IVPUSH Q8H PRN PRN Reason: Nausea and Vomiting Pharmacy Consult (Consult Rx Perform Med Rec) 1 each MISCELLANE ONCE PRN PRN Reason: Consult order Potassium Chloride (Potassium Chloride Er 20 Meq Tab.Er.Prt) 60 meq PO DAILY [facility] Last Admin: 02/05/22 08:07 Dose: 60 meq Documented By: JULIO Pravastatin Sodium (Pravastatin Sodium 20 Mg Tablet) 20 mg PO BEDTIME [facility] Last Admin: 02/04/22 21:11 Dose: 20 mg Documented By: CONCEPCIÓN Psyllium Hydrophilic Mucilloid (Psyllium Seed 3.4 Gm Powd.Pack) 3.4 gm PO DAILY [facility] Last Admin: 02/05/22 08:06 Dose: 3.4 gm Documented By: JULIO Rivaroxaban (Rivaroxaban 20 Mg Tablet) 20 mg PO DAILY@1700 [facility] Sodium Chloride (0.9 % Sodium Chloride Flush 3 Ml Syringe) 3 ml IVFLUSH QSHIFT [facility] Last Admin: 02/05/22 07:24 Dose: Not Given Documented By: JULIO Non-Admin Reason: assessed Spironolactone (Spironolactone 25 Mg Tablet) 25 mg PO BID@0900,1800 [facility]; Protocol Last Admin: 02/05/22 08:07 Dose: 25 mg Documented By: JULIO Tiotropium [place] (Tiotropium [place] 18 Mcg Cap.W.Dev) 1 puff INHALE RDAILY [facility] Last Admin: 02/05/22 08:59 Dose: 1 puff Documented By: DESMOND Vitamin D (Cholecalciferol (Vitamin D3) 25 Mcg Tablet) 25 mcg PO DAILY [facility] Last Admin: 02/05/22 08:06 Dose: 25 mcg Documented By: JULIO Labs CBC & Chem 7: 02/02/22 05:51 02/05/22 05:41 Labs: Laboratory Results - last 24 hr 02/04/22 02/04/22 02/04/22 10:57 15:19 19:21 Anion Gap Estim Creat Clear Calc Estimated GFR POC Glucose 303 H 223 H 284 H Random Glucose Calcium B-Natriuretic Peptide 02/05/22 02/05/22 02/05/22 05:41 05:41 06:56 Anion Gap 13 Estim Creat Clear Calc 45.1 Estimated GFR 37 POC Glucose 230 H Random Glucose 210 H Calcium 9.6 B-Natriuretic Peptide 332 H Assessment and Plan (1) Congestive heart failure: Status: Acute (2) Acute hypokalemia: Status: Acute (3) Persistent atrial fibrillation: Status: Acute Plan A 71 years old lady with PMH of CHF, AFib, diabetes, morbid obesity, chronic hypoxic failure on 2 L, COPD, MELANIE on CPAP who presents to the hospital with a complaint of worsening shortness of breath and lower extremity edema for the last 5 days. Acute on chronic hypoxic respiratory failure, Secondary to diastolic CHF exacerbation. Resolved Uses 2L oxygen at baseline, continue neg nearly 15 L thus far. bicarb and creatinine starting to trend up Bumex drip stopped, IV bumex completed will change to oral bumex 2mg BID Continue Metolazone 5 mg daily, aldactone 25mg BID Monitor intake and output cardiology following Hypokalemia. 2.9 needs more aggressive replacement, will give IV and po follow BMP closely Contraction alkalosis over diuresis Diamox due to bicarb trending up, completed Atrial fibrillation with RVR, HR better controlled Likely secondary to CHF exacerbation Not on any rate control medications Avoid pb blockers with acute CHF Continue Xarelto cardiology following CKD3. Trending down likely secondary to contraction alkalosis monitor renal function closely Type 2 diabetes with hyperglycemia diabetic diet SSI, Increase home dose Lantus MELANIE continue cpap DVT PPX-Xarelto Attending-Dr. Walsh The patient needs ongoing hospital stay for evaluation and treatment of acute hypoxic failure, CHF exacerbation and AFib with RVR to prevent possible decompensation. Now requiring aggressive potassium replacement Quality Stroke Does the patient have a stroke diagnosis?: No VTE Prior VTE?: No VTE Risk Level:: Medical - moderate - high VTE Device Contraindication: Treatment Not Indicated VTE Drug Contraindication: N/A - Med Ordered
[2022-02-05 11:10] LABS: Glucose, Whole Blood 284 mg/dL (60-115)
[2022-02-05] MEDS: Potassium Chloride/H20 10 MEQ/100 ML PIGGYBACK 100 MEQ IV ×4 (12:10→12:11)
--- NOTE | 2022-02-05 14:22 | PC.NURSE ---
Addendum entered by Joce Jennings RN 02/05/22 18:44: pt bathed this shift Original Note: pt refused 3/4 bags of IV K replacement. informed. pt only received 1 bag of IV K. safety and fall precautions in place. call prince within reach.
[2022-02-05 15:36] LABS: Glucose, Whole Blood 235 mg/dL (60-115)
[2022-02-05] MEDS: Bumetanide 1 MG TABLET 2 MG PO (15:57)
[2022-02-05] MEDS: Rivaroxaban 20 MG TABLET PO (15:58)
[2022-02-05 17:14] LABS: Anion Gap 16 (12-20); Blood Urea Nitrogen 50 mg/dL (9-16); Calcium 10.2 mg/dL (8.4-10.2); Carbon Dioxide 38 mmol/L (22-29); Chloride 84 mmol/L (96-108); Creatinine Clr Calc Pharmacy 51.2; Estimated Glomerular Filt Rate 34; Glucose Random 238 mg/dL (60-115); Potassium 3.8 mmol/L (3.3-5.1); Sodium 134 mmol/L (135-145)
[2022-02-05 19:27] LABS: Glucose, Whole Blood 392 mg/dL (60-115)
[2022-02-05] MEDS: Potassium Chloride ER 20 MEQ TAB.ER.PRT 40 MEQ PO (20:47)
[2022-02-05] MEDS: Pravastatin Sodium 20 MG TABLET PO (20:48)
[2022-02-05] MEDS: 0.9 % Sodium Chloride Flush 3 ML SYRINGE IVFLUSH (20:50)
[2022-02-06 03:41] VITALS: BP 116/64; PULSE 81; RESP 18; TEMP 36.1; O2SAT 95
[2022-02-06 06:00] VITALS: BMI 40.4
[2022-02-06 07:20] LABS: Glucose, Whole Blood 233 mg/dL (60-115)
[2022-02-06 07:23] VITALS: PULSE 91; RESP 20; O2SAT 95
[2022-02-06 08:00] VITALS: BP 102/58; PULSE 95; RESP 20; TEMP 36.5; O2SAT 92
--- NOTE | 2022-02-06 08:00 | PM.DS ---
DS: Providers Provider Date of Service: 02/06/22 Date of admission: 01/29/22 16:51 Primary care physician: Teri Max MD Consults: 01/29/22 16:47 Consult to Cardiology Routine Consulting Provider: Dave Lau Reason for consultation: CHF exacerbation, Afib w RvR Attending physician on discharge: Ananth Ulloa Discharging clinician: Haley Izaguirre DS: Diagnosis Discharge Diagnosis (1) Congestive heart failure: Status: Acute (2) Acute hypokalemia: Status: Acute (3) Persistent atrial fibrillation: Status: Acute DS: Summary Hospital Course Hospital Course: HP as per admitting provider 71 years old lady with PMH of CHF, AFib, diabetes, morbid obesity, chronic hypoxic failure on 2 L, COPD, MELANIE on CPAP who presents to the hospital with a complaint of worsening shortness of breath and lower extremity edema for the last 5 days.? The patient reports that she has been noticing increase in her weight and worsening edema in her lower extremities for the last few weeks.? She reports taking her medications as prescribed and making good amount of urine but notices that her movement became more difficult as she is feeling dyspneic and having difficulties standing up.? Denies any chest pain, palpitation, nausea, vomiting, change in bowel habit or urinary symptoms.? No fever or chills reported.? In the emergency she was noted to have hypoxia requiring oxygen supplement to be increased 4 L. CXR showing evidence of fluid overload.? Lobes potassium level of 3.?Will be admitted for further evaluation and treatment . Acute on chronic hypoxic respiratory failure, Secondary to diastolic CHF exacerbation. Resolved Uses 2L oxygen at baseline, continue neg nearly 15+ L thus far. Bumex drip stopped, IV bumex completed changed to oral bumex 2mg BID Continue Metolazone 5 mg daily, aldactone 25mg BID Hypokalemia. 3.8 continue daily potassium dosing check BMP in 2 days Contraction alkalosis over diuresis Diamox due to bicarb trending up, completed Atrial fibrillation with RVR, HR better controlled Likely secondary to CHF exacerbation Not on any rate control medications Avoid pb blockers with acute CHF Continue Xarelto at 20mg daily cardiology following outpatient CKD3. Trending down likely secondary to contraction alkalosis Type 2 diabetes with hyperglycemia diabetic diet continue home medications MELANIE continue cpap Time Spent with Patient Time attestation: Total time spent providing and/or coordinating discharge services: Discharge coordination time: Greater than 30 minutes Quality: Safe Use of Opioids Does Pt have an Active Cancer Diagnosis on the Problem List?: No Quality: Stroke Does the patient have a stroke diagnosis?: No Physical Exam Vital Signs: Vital Signs: Last Vital Signs Temp 96.9 F 02/06/22 03:41 Pulse 91 02/06/22 07:23 Resp 20 02/06/22 07:23 BP 116/64 02/06/22 03:41 Pulse Ox 95 02/06/22 03:41 O2 Del Method 02/06/22 03:41 O2 Flow Rate 2 02/05/22 19:27 Oxygen Flow Rate 4 01/29/22 15:18 BMI result Body Mass Index 40.4 Appearing in no acute distress head is normocephalic atraumatic eyes pupils are PERRLA sclera is anicteric mouth throat mucous membranes are intact and moist neck is supple no lymphadenopathy, no JVD noted lung sounds are clear to auscultation heart regular rate rhythm, clear S1, S2 positive bowel sounds, abdomen is soft, nontender, obese neuro patient is alert x3, no focal deficits Chronic skin changes to LE due to edema DS: Data Data Completed and Pending Labs on day of discharge: Laboratory Results - last 24 hr 02/05/22 02/05/22 02/05/22 11:02 15:32 16:23 Sodium 134 L Potassium 3.8 D Chloride 84 L Carbon Dioxide 38 H Anion Gap 16 BUN 50 H Creatinine 1.52 H Estim Creat Clear Calc 51.2 Estimated GFR 34 POC Glucose 284 H 235 H Random Glucose 238 H Calcium 10.2 D 02/05/22 02/06/22 19:20 07:16 Sodium Potassium Chloride Carbon Dioxide Anion Gap BUN Creatinine Estim Creat Clear Calc Estimated GFR POC Glucose 392 H* 233 H Random Glucose Calcium Discharge Plan Discharge Anticipated Discharge Date/Time: 02/06/22 07:54 Patient Disposition: Home Health Service Discharge Diagnosis: Acute on chronic hypoxic respiratory failure secondary to diastolic CHF exacerbation Hypokalemia Contraction alkalosis Atrial fibrillation with rapid ventricular response CKD 3 Referrals: Teri Max MD [Primary Care Provider] - 1 Week Discharge Medications: New Xarelto 20 mg Tablet 20 mg PO DAILY@1700 Qty: 30 0RF bumetanide 1 mg Tablet 2 mg PO BID@0800,1700 Qty: 120 0RF Protocol: Hold for SBP< HOLD for SBP < : 90 Jardiance 10 mg Tablet 10 mg PO DAILY Qty: 30 0RF Continued (DME) OneTouch Ultra Blue Test Strip Strip See Rx Instructions .ROUTE .MEDSUPPLY Qty: 100 11RF Rx Instructions: 4x daily (DME) lancets [OneTouch Delica Plus Lancet] 33 gauge misc See Rx Instructions .ROUTE .MEDSUPPLY Qty: 100 11RF Rx Instructions: 4x daily (DME) FreeStyle [place] 14 Day Sensor Kit See Rx Instructions .Route Qty: 2 11RF Rx Instructions: As directed metolazone 5 mg tablet 5 mg PO DAILY Qty: 20 5RF gabapentin 300 mg capsule 300 mg PO TID 90 Days Qty: 270 1RF spironolactone 25 mg tablet 25 mg PO DAILY 90 Days Qty: 90 1RF albuterol sulfate 90 mcg/actuation HFA aerosol inhaler 2 puff inhalation Q6H PRN (Reason: shortness of breath or wheezing) Qty: 1 0RF pravastatin 20 mg tablet 20 mg PO BEDTIME Qty: 90 0RF fluticasone propion-salmeterol [Advair Diskus] 500-50 mcg/dose blister with device 1 inh PO BID Qty: 180 1RF Insupen 32 gauge x 5/16 needle 1 ea miscellaneous QID Qty: 400 3RF insulin aspart U-100 [Novolog Flexpen U-100 Insulin] 100 unit/mL (3 mL) insulin pen 20 unit subcut TID Label Comments: 15 minutes before a meal potassium chloride 20 mEq tablet,ER particles/crystals 20 meq PO TID multivitamin Tablet 1 tab PO DAILY docusate sodium [Colace] 100 mg capsule 100 mg PO DAILY cholecalciferol (vitamin D3) 25 mcg (1,000 unit) capsule 25 mcg PO DAILY zinc acetate 50 mg (zinc) capsule 50 mg PO DAILY Rx Instructions: swallow whole; do not chew/break/dissolve/open vitamin B complex Tablet 1 tab PO DAILY ferrous sulfate [Feosol] 325 mg (65 mg iron) tablet 325 mg PO DAILY insulin glargine 100 unit/mL (3 mL) insulin pen 30 unit subcut DAILY Spiriva with HandiHaler 18 mcg capsule, w/inhalation device 1 cap inhalation DAILY 90 Days Qty: 90 3RF allopurinol 100 mg tablet 100 mg PO DAILY Trulicity 4.5 mg/0.5 mL pen injector 4.5 mg subcut QWEEK 30 Days Qty: 2.5 11RF Discontinued bumetanide 1 mg tablet 3 mg PO BID 90 Days Qty: 540 0RF Xarelto 15 mg tablet 15 mg PO DAILY Qty: 90 3RF Rx Instructions: must administer with evening meal Discharge Orders: Discharge Order (Routine); Ordered 02/06/22 Ordered By: Haley Izaguirre Diet: Advance to usual diet Activity on Discharge: As tolerated Stand Alone Forms: Patient Portal Discharge page Other Ambulatory Orders: Basic Metabolic Panel (Routine) Timeframe: 2 Days Facility: [facility] - Location: Laboratory Ordered By: Haley Izaguirre Care Plan Goals: Daily weights Take all medications as prescribed Health Concerns: Acute on chronic hypoxic respiratory failure secondary to diastolic CHF exacerbation Hypokalemia Contraction alkalosis Atrial fibrillation with rapid ventricular response CKD 3 Plan of Treatment: Follow-up via primary care provider as needed Follow-up with your radiology scheduler as needed Take all medications as prescribed Check your labs listed Assessment: See discharge summary
[2022-02-06] MEDS: Insulin Lispro 100 UNIT/ML 3 ML VIAL SUBCUT ×2 (08:08→11:54)
[2022-02-06] MEDS: 0.9 % Sodium Chloride Flush 3 ML SYRINGE IVFLUSH (08:09)
[2022-02-06] MEDS: Spironolactone 25 MG TABLET PO (08:09)
[2022-02-06] MEDS: Cholecalciferol (Vitamin D3) 25 MCG TABLET PO (08:10)
[2022-02-06] MEDS: Bumetanide 1 MG TABLET 2 MG PO (08:10)
[2022-02-06] MEDS: Potassium Chloride ER 20 MEQ TAB.ER.PRT 60 MEQ PO (08:10)
[2022-02-06] MEDS: metOLazone 5 MG TABLET PO (08:10)
[2022-02-06] MEDS: Gabapentin 300 MG CAPSULE PO ×2 (08:10→13:57)
[2022-02-06] MEDS: Empagliflozin 10 MG TABLET PO (08:11)
[2022-02-06] MEDS: allopurinoL 100 MG TABLET PO (08:11)
[2022-02-06] MEDS: Multivitamin TABLET 1 TAB PO (08:11)
[2022-02-06] MEDS: Docusate Sodium 100 MG CAPSULE PO (08:11)
--- NOTE | 2022-02-06 08:40 | MHC.CM.PN ---
pt dcd today home with care tenders son to transport
[2022-02-06 10:22] VITALS: BP 102/58; PULSE 95; O2SAT 92
[2022-02-06 11:01] LABS: Glucose, Whole Blood 345 mg/dL (60-115)
[2022-02-06 11:36] VITALS: BP 116/74; PULSE 84; RESP 20; TEMP 36.6; O2SAT 97
[2022-02-06] MEDS: Insulin Glargine,Hum.rec.anlog 100 UNIT/ML 10 ML VIAL 35 UNIT SUBCUT (11:53)
--- NOTE | 2022-02-06 12:07 | PM.PNCARD ---
Subjective Subjective Date of Service: 02/06/22 Principal diagnosis: Congestive heart failure, atrial fibrillation Interval history: Patient feeling well. No shortness of breath. Says feels a lot better. Overall negative balance since admission of 22 L. potassium has improved Review of Systems Review of Systems Yes all other systems are reviewed and are negative Physical Exam Vital Signs: Last Vital Signs Temp 97.8 F 02/06/22 11:36 Pulse 84 02/06/22 11:36 Resp 20 02/06/22 11:36 BP 116/74 02/06/22 11:36 Pulse Ox 97 02/06/22 11:36 O2 Del Method 02/06/22 11:36 O2 Flow Rate 2 02/06/22 11:36 Oxygen Flow Rate 4 01/29/22 15:18 BMI result Body Mass Index 40.4 Const General: cooperative, alert, awake and in distress mild and respiratory Nutritional Appearance: obese morbidly obese Orientation/consciousness: patient oriented x3 Limitations: ambulation with walker Neck Neck: Yes no JVD Resp Auscultation: clear to auscultation bilaterally and diminished lung sounds Cardio Jugular venous distension: no JVD Rhythm: abnormal rhythm irregularly irregular Heart sounds: S1 normal heart sound present and S2 normal heart sound present Skin General skin exam: no rashes or lesions noted and ecchymosis Neuro General: patient oriented x3 and no focal motor deficits Extrem General: No clubbing, No cyanosis and Yes edema Objective Labs and Meds Result diagrams: 02/02/22 05:51 02/05/22 16:23 Lab results: Laboratory Results - last 24 hr 02/05/22 02/05/22 02/05/22 15:32 16:23 19:20 Sodium 134 L Potassium 3.8 D Chloride 84 L Carbon Dioxide 38 H Anion Gap 16 BUN 50 H Creatinine 1.52 H Estim Creat Clear Calc 51.2 Estimated GFR 34 POC Glucose 235 H 392 H* Random Glucose 238 H Calcium 10.2 D 02/06/22 02/06/22 07:16 10:57 Sodium Potassium Chloride Carbon Dioxide Anion Gap BUN Creatinine Estim Creat Clear Calc Estimated GFR POC Glucose 233 H 345 H Random Glucose Calcium Progress Note: A&P Assessment and plan (1) CHF exacerbation: Status: Acute Assessment and Plan: Recurrent hospitalization related to heart failure in a patient with advanced diastolic heart failure as well as cor pulmonale with significant fluid overload, difficult to assess and manage clinically as outpatient. Will benefit with CardioMEMS device. Discussed with the patient. She is agreeable. Will schedule for this as outpatient in the near future. Continue oral diuretics with Bumex 2 mg b.i.d. and metolazone 5 mg at least 3 times a week and more as needed. Continue spironolactone therapy. Continue Jardiance 10 mg. Heart failure management was discussed with her in details. She shows understanding. She understands management as well. Continue CPAP therapy. Continue chronic oxygen therapy. Overall prognosis is guarded (2) Persistent atrial fibrillation: Status: Acute Assessment and Plan: Persistent atrial fibrillation, currently rate controlled. Continue current rate control. Continue full oral anticoagulation, switch to Xarelto 15 mg on discharge. Time Spent With Patient Time: Total time spent is greater than 50% in coordination of care (as documented) at patient's floor/unit and/or counseling patient: Progress Note: Quality Stroke Does the patient have a stroke diagnosis?: No Procedures Date of Service Date of Service: 02/06/22
== END 2022-02-06 16:00 | disposition home health service (06) | DRG 291 ==
LOC: HO.ED 16:31 → HO.EDOVER 16:57 → HO.IMC 21:15
PROVIDERS: Physician Assistant Medical; Admitting Provider Student in an Organized Health Care Education/Training Program; Emergency Provider Emergency Medicine; PCP Internal Medicine; Visit Provider Nurse Practitioner Acute Care
DX: I13.0 Hypertensive heart and chronic kidney disease with heart failure and stage 1 through stage 4 chronic kidney disease, or unspecified chronic kidney disease (principal); I50.33 Acute on chronic diastolic (congestive) heart failure; J96.21 Acute and chronic respiratory failure with hypoxia; J44.1 Chronic obstructive pulmonary disease with (acute) exacerbation; I48.19 Other persistent atrial fibrillation; Z68.42 Body mass index [BMI] 45.0-49.9, adult; E87.3 Alkalosis; E87.6 Hypokalemia; E66.01 Morbid (severe) obesity due to excess calories; E11.65 Type 2 diabetes mellitus with hyperglycemia; N18.30 Chronic kidney disease, stage 3 unspecified; G47.33 Obstructive sleep apnea (adult) (pediatric); E11.22 Type 2 diabetes mellitus with diabetic chronic kidney disease; I50.814 Right heart failure due to left heart failure; E78.5 Hyperlipidemia, unspecified; Z99.81 Dependence on supplemental oxygen; Z20.822 Contact with and (suspected) exposure to COVID-19; Z87.891 Personal history of nicotine dependence; Z79.4 Long term (current) use of insulin; Z79.01 Long term (current) use of anticoagulants; Z79.51 Long term (current) use of inhaled steroids; Z79.899 Other long term (current) drug therapy
CPT/HCPCS: 36415; 71045; 80048; 80076; 82803; 82947; 83605; 83735; 83880; 84132; 84145; 84484; 85025; 85027; 85730; 87040; 87635; 93005; 93306; 94640; 94660; 94664; 96365; 96375; 97116; 97162; 99285; J0696; J1940; J2930; Q9957

== ENCOUNTER 2022-02-19 09:04 | Outpatient (REF) | payer MEDICARE, BC, SELFPAY ==
[2022-02-19 12:38] LABS: Anion Gap 21 (12-20); Blood Urea Nitrogen 69 mg/dL (9-16); Carbon Dioxide 35 mmol/L (22-29); Chloride 78 mmol/L (96-108); Estimated Glomerular Filt Rate 31; Glucose Random 367 mg/dL (60-115); Potassium 3.5 mmol/L (3.3-5.1); Sodium 130 mmol/L (135-145)
== END 2022-02-19 09:05 | disposition home or self-care (01) ==
LOC: HO.HMGCLNP 09:04
PROVIDERS: Visit Provider Nurse Practitioner Acute Care
DX: E87.6 Hypokalemia (principal)
CPT/HCPCS: 80048

== ENCOUNTER → 2022-03-11 07:48 | Outpatient (BNVA) | payer MEDICARE, BC, SELFPAY | PROVIDERS: PCP Internal Medicine; Visit Provider Internal Medicine | DX: E11.9 Type 2 diabetes mellitus without complications (principal); I10 Essential (primary) hypertension; E78.5 Hyperlipidemia, unspecified; N18.9 Chronic kidney disease, unspecified | CPT/HCPCS: Q3014 ==

== ENCOUNTER 2022-03-19 09:03 | Outpatient (REF) | payer MEDICARE, BC, SELFPAY ==
[2022-03-19 11:48] LABS: Estimated Average Glucose 249 mg/dL; Hemoglobin A1c % 10.3 %
[2022-03-19 12:03] LABS: Alanine Aminotransferase 17 U/L (0-31); Albumin Level 3.4 g/dL (3.5-5.0); Alkaline Phosphatase 125 U/L (39-117); Anion Gap 17 (12-20); Aspartate Amino Transferase 30 U/L (5-31); Bilirubin Total 1.2 mg/dL (0.0-1.0); Blood Urea Nitrogen 63 mg/dL (9-16); Calcium 8.8 mg/dL (8.4-10.2); Carbon Dioxide 34 mmol/L (22-29); Chloride 82 mmol/L (96-108); Estimated Glomerular Filt Rate 32; Glucose Random 130 mg/dL (60-115); Potassium 2.6 mmol/L (3.3-5.1); Sodium 130 mmol/L (135-145); Total Protein 6.4 g/dL (6.5-8.0)
== END 2022-03-19 09:04 | disposition home or self-care (01) ==
LOC: HO.HMGCLNP 09:03
PROVIDERS: Visit Provider Internal Medicine
DX: E11.9 Type 2 diabetes mellitus without complications (principal)
CPT/HCPCS: 80053; 83036

== ENCOUNTER → 2022-03-22 10:28 | Outpatient (BNVA) | payer MEDICARE, BC, SELFPAY | PROVIDERS: PCP Internal Medicine; Visit Provider Internal Medicine Pulmonary Disease | DX: J44.1 Chronic obstructive pulmonary disease with (acute) exacerbation (principal); G47.33 Obstructive sleep apnea (adult) (pediatric); Z99.81 Dependence on supplemental oxygen | CPT/HCPCS: 99212 ==

== ENCOUNTER 2022-03-28 09:08 | Outpatient (REF) | payer MEDICARE, BC, SELFPAY ==
[2022-03-28 12:02] LABS: Anion Gap 18 (12-20); Blood Urea Nitrogen 57 mg/dL (9-16); Calcium 8.7 mg/dL (8.4-10.2); Carbon Dioxide 30 mmol/L (22-29); Chloride 87 mmol/L (96-108); Estimated Glomerular Filt Rate 32; Glucose Random 194 mg/dL (60-115); Magnesium 2.3 mg/dL (1.6-2.6); Potassium 3.2 mmol/L (3.3-5.1); Sodium 132 mmol/L (135-145)
== END 2022-03-28 09:09 | disposition home or self-care (01) ==
LOC: HO.HMGCLNP 09:08
PROVIDERS: Visit Provider Internal Medicine Cardiovascular Disease
DX: E87.6 Hypokalemia (principal); I50.9 Heart failure, unspecified; E16.2 Hypoglycemia, unspecified
CPT/HCPCS: 80048; 83735

== ENCOUNTER → 2022-04-04 07:02 | Day surgery (SDC) | payer MEDICARE, BC, SELFPAY ==
--- NOTE | 2022-04-03 12:32 | HO.ANESPROP2 ---
HPI - Anesthesia Eval Consult details Narrative: Rescheduled d/t pt admit with CHF exac 72yo F for CARDIOMEMS 01/2022 C admit with acute CHF. Diuresed 22 liters during admission. Xarelto for afib O2 @ 2L Bipap QHS PMFSH Active Problems Active Problems: All Active Problems (Updated 03/22/22 @ 10:56 by Gwyn Tran MD) Supplemental oxygen dependent (Acute) COPD (chronic obstructive pulmonary disease) (Acute) Lumbar pain (Acute) Hospital discharge follow-up (Acute) Hypokalemia (Acute) Hip pain, right (Acute) Diabetic neuropathy (Acute) Vitamin D deficiency (Acute) HLD (hyperlipidemia) (Acute) T2DM (type 2 diabetes mellitus) (Acute) correction (current) use of insulin (Acute) Phlebitis of left leg (Acute) Pulmonary hypertension (Acute) Tricuspid regurgitation (Acute) HTN (hypertension) (Acute) Diabetes mellitus (Acute) Morbid obesity (Acute) CKD (chronic kidney disease) (Acute) MELANIE (obstructive sleep apnea) (Acute) Past Medical History Medical History (HFpEF) heart failure with preserved ejection fraction CHF exacerbation CKD (chronic kidney disease) Congestive heart failure Congestive heart failure (CHF) COPD (chronic obstructive pulmonary disease) Diabetes mellitus HLD (hyperlipidemia) HTN (hypertension) 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 Mother No problems noted. Brother No problems noted. Son No problems noted. Other Substance use disorder Surgical History Surgical History History of colectomy (~1983) History of colonoscopy History of hernia repair (~07/2011) History of hysteroscopy (~2007) History of left breast biopsy (~04/09/11) History of left inguinal hernia repair (~01/28/20) Social History Social History Household Members: None Housing: House Do you presently have visiting nurse or other home services: Yes Unable to assess alcohol history related to: Unknown Alcohol intake: former Patient Tobacco Use Status: Former Tobacco user Advance Directives Date on File: 02/09/21 service: No Current occupational status: retired Meds Allergies Allergy/AdvReac Type Severity Reaction Status Date / Time oxycodone [Percocet] Allergy Unknown nausea and Verified 04/04/22 10:27 vomiting Home Medications Medication Instructions Recorded Confirmed Last Taken Type cholecalciferol (vitamin D3) 25 25 mcg PO DAILY 04/24/20 04/04/22 04/03/22 History mcg (1,000 unit) capsule vitamin B complex 1 tab PO DAILY 04/24/20 04/04/22 04/03/22 History zinc acetate 50 mg (zinc) capsule 50 mg PO DAILY 04/24/20 04/04/22 04/03/22 History multivitamin 1 tab PO DAILY 06/13/20 04/04/22 04/03/22 History ferrous sulfate 325 mg (65 mg 325 mg PO DAILY 09/14/20 04/04/22 04/03/22 History iron) tablet (Feosol) docusate sodium 100 mg capsule 100 mg PO DAILY 05/31/21 04/04/22 04/03/22 History (Colace) allopurinol 100 mg tablet 100 mg PO DAILY 09/24/21 04/04/22 04/03/22 History bumetanide 1 mg tablet 4 mg PO BID@0800,1700 04/04/22 04/04/22 04/03/22 History dulaglutide 4.5 mg/0.5 mL 4.5 mg subcut TH@0900 04/04/22 04/04/22 04/03/22 History subcutaneous pen injector (Trulicity) fluticasone 500 mcg-salmeterol 50 1 inh inhalation BID 04/04/22 04/04/22 04/04/22 History mcg/dose blistr powdr for inhalation (Advair Diskus) insulin aspart U-100 100 unit/mL 25 unit subcut TIDAC 04/04/22 04/04/22 04/03/22 History (3 mL) subcutaneous pen (Novolog Flexpen U-100 Insulin aspart) insulin glargine 100 unit/mL (3 10 unit subcut DAILY@1200 04/04/22 04/04/22 04/03/22 History mL) subcutaneous pen (Basaglar KwikPen U-100 Insulin) insulin glargine 100 unit/mL (3 35 unit subcut DAILY@0700 04/04/22 04/04/22 04/03/22 History mL) subcutaneous pen (Basaglar KwikPen U-100 Insulin) rivaroxaban 20 mg tablet (Xarelto) 20 mg PO DAILY@1500 04/04/22 04/04/22 04/03/22 History Exam Exam Date and Time: April 03, 2022 1232 Pertinent Lab Results Pertinent Lab Results: Laboratory Tests 02/02/22 03/28/22 05:51 08:40 WBC 9.4 Hgb 11.9 L Hct 37.2 Plt Count 210 Sodium 132 L Potassium 3.2 L D Chloride 87 L Carbon Dioxide 30 H BUN 57 H Creatinine 1.57 H Narrative Narrative: ECHO 01/2022 Conclusions: - Normal left ventricular size and systolic function. There is ? mildly increased left ventricular wall thickness.? The visually? estimated ejection fraction is between 65-70%. ? - E/E prime ratio is >15, consistent with elevated filling ? ? ? pressures. ? - Moderately increased right ventricular cavity size.? There is? moderately decreased right ventricular systolic function.? - The left atrium is moderately dilated. ? - There is mild dilatation of the sinuses of Valsalva measuring? 3.40 cm and mild dilatation of the ascending aorta measuring 4.00 cm.? ? EKG 01/2022 Vent. Rate : 117 BPM ? ? Atrial Rate : 000 BPM ?? P-R Int : 000 ms? QRS Dur : 096 ms ? ? QT Int : 360 ms ? ? ? P-R-T Axes : 000 010 053 degrees ?? QTc Int : 502 ms ? Atrial fibrillation with rapid ventricular response with premature ventricular or aberrantly conducted complexes Low voltage QRS Septal infarct , age undetermined Abnormal ECG When compared with ECG of 13-FEB-2021 12:27, Septal infarct is now Present Assessment and Plan Assessment Anesthesia Assessment: Chart Reviewed
[2022-04-04] MEDS: Lactated Ringers 1,000 ML 0.01 ML IVCONT (07:48)
[2022-04-04 08:15] VITALS: BP 119/69; PULSE 100; RESP 20; TEMP 36.6; O2SAT 96
--- NOTE | 2022-04-04 08:15 | PC.NURSE ---
IV is hep locked only. LR fluids hanging for anesthesia when needed.
[2022-04-04 08:16] VITALS: BMI 42.2
[2022-04-04 08:31] LABS: Glucose, Whole Blood 150 mg/dL (60-115)
--- NOTE | 2022-04-04 09:37 | PC.NURSE ---
Patient procedure was cancelled. Dr. Galeana evaluated bilateral lower leg edema, redness and leg blisters. patient sob at baseline. 96% on @L via NC. pt unable to lie flat for a period of time per doctor. pt stated to doctor not author that she has recently gained [address] pounds[address] Galeana spoke with ER physician for patient to be brought to the ER and admitted to floor to remove fluids. author gave report to ame ritter in ER. at this time. Patient's friend, Christen, updated that patient would not be going home today.
--- NOTE | 2022-04-12 11:06 | P.CONAN_ITS ---
HPI - Anesthesia Eval Consult details Narrative: 72yo F for CARDIOMEMS Reschedule from 04/04/22 d/t CHF exac. Presented to [facility] for [facility] with SOB, 10lb weight gain. Procedure canceled and pt to ED. Was admitted, diruesed 10L. [place] [facility] [place]. Diuresed 22 liters during admission. Xarelto for afib O2 @ 2L Bipap QHS PMFSH Active Problems Active Problems: All Active Problems (Updated 04/09/22 @ 12:29 by Isabel Adames, BUDGET CONSULTANT-C) Hypotension (Acute) Chronic atrial fibrillation (Acute) Acute exacerbation of congestive heart failure (Acute) CHF exacerbation (Acute) Supplemental oxygen dependent (Acute) COPD (chronic obstructive pulmonary disease) (Acute) Lumbar pain (Acute) Hospital discharge follow-up (Acute) Hypokalemia (Acute) Hip pain, right (Acute) Diabetic neuropathy (Acute) Vitamin D deficiency (Acute) HLD (hyperlipidemia) (Acute) T2DM (type 2 diabetes mellitus) (Acute) long-term (current) use of insulin (Acute) Phlebitis of left leg (Acute) Pulmonary hypertension (Acute) Tricuspid regurgitation (Acute) HTN (hypertension) (Acute) Diabetes mellitus (Acute) Morbid obesity (Acute) CKD (chronic kidney disease) (Acute) MELANIE (obstructive sleep apnea) (Acute) Past Medical History Medical History (HFpEF) heart failure with preserved ejection fraction CHF exacerbation CKD (chronic kidney disease) Congestive heart failure Congestive heart failure (CHF) COPD (chronic obstructive pulmonary disease) Diabetes mellitus HLD (hyperlipidemia) HTN (hypertension) 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 Mother No problems noted. Brother No problems noted. Son No problems noted. Other Substance use disorder Surgical History Surgical History History of colectomy (~1983) History of colonoscopy History of hernia repair (~07/2011) History of hysteroscopy (~2007) History of left breast biopsy (~04/09/11) History of left inguinal hernia repair (~01/28/20) Social History Social History Household Members: None Housing: House Do you presently have visiting nurse or other home services: Yes Unable to assess alcohol history related to: Unknown Alcohol intake: former Patient Tobacco Use Status: Former Tobacco user Advance Directives Date on File: 02/09/21 service: No Current occupational status: retired Meds Allergies Allergy/AdvReac Type Severity Reaction Status Date / Time oxycodone [Percocet] Allergy Unknown nausea and Verified 04/04/22 10:27 vomiting Active Medications: Current Medications Sodium Chloride (0.9 % Sodium Chloride Flush 3 Ml Syringe) [facility] Medication Instructions Recorded Confirmed Last Taken Type cholecalciferol (vitamin D3) 25 25 mcg PO DAILY 04/24/20 04/04/22 04/03/22 History mcg (1,000 unit) capsule vitamin B complex 1 tab PO DAILY 04/24/20 04/04/22 04/03/22 History zinc acetate 50 mg (zinc) capsule 50 mg PO DAILY 04/24/20 04/04/22 04/03/22 History multivitamin 1 tab PO DAILY 06/13/20 04/04/22 04/03/22 History ferrous sulfate 325 mg (65 mg 325 mg PO DAILY 09/14/20 04/04/22 04/03/22 History iron) tablet (Feosol) docusate sodium 100 mg capsule 100 mg PO DAILY 05/31/21 04/04/22 04/03/22 History (Colace) allopurinol 100 mg tablet 100 mg PO DAILY 09/24/21 04/04/22 04/03/22 History bumetanide 1 mg tablet 4 mg PO BID@0800,1700 04/04/22 04/04/22 04/03/22 History dulaglutide 4.5 mg/0.5 mL 4.5 mg subcut TH@0900 04/04/22 04/04/22 04/03/22 History subcutaneous pen injector (Trulicity) fluticasone 500 mcg-salmeterol 50 1 inh inhalation BID 04/04/22 04/04/2222 History mcg/dose blistr powdr for inhalation (Advair Diskus) insulin aspart U-100 100 unit/mL 25 unit subcut TIDAC 04/04/22 04/04/22 04/03/22 History (3 mL) subcutaneous pen (Novolog Flexpen U-100 Insulin aspart) insulin glargine 100 unit/mL (3 10 unit subcut DAILY@1200 04/04/22 04/04/22 04/03/22 History mL) subcutaneous pen (Basaglar KwikPen U-100 Insulin) insulin glargine 100 unit/mL (3 35 unit subcut DAILY@0700 04/04/22 04/04/22 04/03/22 History mL) subcutaneous pen (Basaglar KwikPen U-100 Insulin) rivaroxaban 20 mg tablet (Xarelto) 20 mg PO DAILY@1500 04/04/22 04/04/22 04/03/22 History Exam Exam Date and Time: April 12, 2022 1106 Height,Weight and Vital Signs: Height 5 ft 4 in Weight 111.584 kg Last Vital Signs Temp 97.9 F 04/04/22 08:15 Pulse 100 04/04/22 08:15 Resp 20 04/04/22 08:15 BP 119/69 04/04/22 08:15 Pulse Ox 96 04/04/22 08:15 O2 Del Method 04/04/22 08:15 O2 Flow Rate 2 04/04/22 08:15 Pertinent Lab Results Pertinent Lab Results: Laboratory Tests 04/10/22 10:09 B-Natriuretic Peptide 399 H Laboratory Tests 04/07/22 04/11/22 05:48 06:05 WBC 10.9 H Hgb 12.5 Hct 38.0 Plt Count 272 Sodium 136 Potassium 3.6 Chloride 94 L Carbon Dioxide 30 H BUN 47 H Creatinine 1.22 Narrative Narrative: ECHO 01/2022 Conclusions: - Normal left ventricular size and systolic function. There is ? mildly increased left ventricular wall thickness.? The visually? estimated ejection fraction is between 65-70%. ? - E/E prime ratio is >15, consistent with elevated filling ? ? ? pressures. ? - Moderately increased right ventricular cavity size.? There is? moderately decreased right ventricular systolic function.? - The left atrium is moderately dilated. ? - There is mild dilatation of the sinuses of Valsalva measuring? 3.40 cm and mild dilatation of the ascending aorta measuring 4.00 cm.? ? EKG 03/2022 Vent. Rate : 102 BPM ? ? Atrial Rate : 000 BPM ?? P-R Int : 000 ms? QRS Dur : 092 ms ? ? QT Int : 370 ms ? ? ? P-R-T Axes : 000 006 012 degrees ?? QTc Int : 482 ms ? Atrial fibrillation with rapid ventricular response with premature ventricular or aberrantly conducted complexes Low voltage QRS Abnormal ECG When compared with ECG of 04-APR-2022 10:29, QRS duration has increased Criteria for Septal infarct are no longer Present Nonspecific T wave abnormality no longer evident in Anterolateral leads XR chest 2V 04/04/22 IMPRESSION: No acute cardiopulmonary process. Assessment and Plan Assessment Anesthesia Assessment: Chart Reviewed
== END ==
PROVIDERS: PCP Internal Medicine; Visit Provider Internal Medicine Cardiovascular Disease
DX: I50.30 Unspecified diastolic (congestive) heart failure (principal); Z53.09 Procedure and treatment not carried out because of other contraindication; R60.0 Localized edema; E11.9 Type 2 diabetes mellitus without complications
CPT/HCPCS: 82947; Q9967

== ENCOUNTER 2022-04-04 09:27 | Inpatient (IN) | payer MEDICARE, BC, SELFPAY ==
[2022-04-04] VITALS (8 sets, daily range): BP systolic 90–112; BP diastolic 49–78; PULSE 76–95; RESP 18–22; TEMP 36.4–37.4; O2SAT 94–100; BMI 40.9
--- NOTE | ~2022-04-04 | XR_ITS ---
EXAMINATION: XR CHEST CLINICAL INFORMATION: Shortness of breath. COMPARISON: 01/29/2022 chest radiograph. TECHNIQUE: 2 views of the chest were obtained. FINDINGS: No significant abnormality is noted involving the heart, lungs, mediastinum, bony thorax or soft tissues. XR/XR chest 2V IMPRESSION: No acute cardiopulmonary process.
--- NOTE | 2022-04-04 09:51 | ED_ITS ---
HPI - General Adult General Chief complaint: General Medical Stated complaint: Sent from short stay Time Seen by Provider: 04/04/22 09:41 Source: patient Mode of arrival: wheelchair Limitations: no limitations History of Present Illness HPI narrative: Patient is a 72 year old female presenting to the emergency department today with weight gain and worsening lower leg edema. Patient states that she was supposed to have a cardiomems device placed today but when she was seen by those doctors, they recommended she come down to the ER. Spoke to Dr. Lau who recommended the patient be diuresed and admitted. Patient denies any dizziness, lightheadedness, abdominal pain, nausea, vomiting, fever, chills, blurry vision, double vision, loss of vision, chest pain, back pain, night sweats, pain with urination, increased urinary frequency, increased urinary urgency, blood in her urine or stool, syncope or a near syncopal episode, recent trauma or falls, bowel incontinence, bladder incontinence, bowel retention, bladder retention, or any other complaints at this time. Patient states that she is compliant with all of her medications, including her xarelto. Onset (ago): day(s) Severity: moderate Severity scale (1-10): 4 Relieving factors: none Exacerbating factors: none Associated symptoms: shortness of breath Treatments prior to arrival: none Related Data Home Medications Medication Instructions Recorded Confirmed cholecalciferol (vitamin D3) 25 25 mcg PO DAILY 04/24/20 04/04/22 mcg (1,000 unit) capsule vitamin B complex 1 tab PO DAILY 04/24/20 04/04/22 zinc acetate 50 mg (zinc) capsule 50 mg PO DAILY 04/24/20 04/04/22 multivitamin 1 tab PO DAILY 06/13/20 04/04/22 ferrous sulfate 325 mg (65 mg 325 mg PO DAILY 09/14/20 04/04/22 iron) tablet (Feosol) docusate sodium 100 mg capsule 100 mg PO DAILY 05/31/21 04/04/22 (Colace) allopurinol 100 mg tablet 100 mg PO DAILY 09/24/21 04/04/22 bumetanide 1 mg tablet 4 mg PO BID@0800,1700 04/04/22 04/04/22 dulaglutide 4.5 mg/0.5 mL 4.5 mg subcut TH@0900 04/04/22 04/04/22 subcutaneous pen injector (Trulicity) fluticasone 500 mcg-salmeterol 50 1 inh inhalation BID 04/04/22 04/04/22 mcg/dose blistr powdr for inhalation (Advair Diskus) insulin aspart U-100 100 unit/mL 25 unit subcut TIDAC 04/04/22 04/04/22 (3 mL) subcutaneous pen (Novolog Flexpen U-100 Insulin aspart) insulin glargine 100 unit/mL (3 10 unit subcut DAILY@1200 04/04/22 04/04/22 mL) subcutaneous pen (Basaglar KwikPen U-100 Insulin) insulin glargine 100 unit/mL (3 35 unit subcut DAILY@0700 04/04/22 04/04/22 mL) subcutaneous pen (Basaglar KwikPen U-100 Insulin) metolazone 5 mg tablet 5 mg PO DAILY 04/04/22 04/04/22 rivaroxaban 20 mg tablet (Xarelto) 20 mg PO DAILY@1500 04/04/22 04/04/22 Previous Rx's Medication Instructions Recorded blood sugar diagnostic (OneTouch #100 ea 08/16/20 Ultra Blue Test Strip) lancets 33 gauge (OneTouch Delica #100 ea 01/01/21 Plus Lancet) flash glucose sensor (FreeStyle #2 ea 06/11/21 Santiago 14 Day Sensor kit) tiotropium bromide 18 mcg capsule 1 cap inhalation DAILY 90 days #90 10/26/21 with inhalation device (Spiriva caps with HandiHaler) gabapentin 300 mg capsule 300 mg PO TID 90 days #270 caps 11/15/21 spironolactone 25 mg tablet 25 mg PO DAILY 90 days #90 tabs 11/21/21 albuterol sulfate 90 mcg/actuation 2 puff inhalation Q6H PRN 12/17/21 aerosol inhaler shortness of breath or wheezing #1 ea pravastatin 20 mg tablet 20 mg PO BEDTIME #90 tabs 12/25/21 pen needle, diabetic 32 gauge x 1 ea miscellaneous QID #400 ea 12/27/21 5/16 (Insupen) empagliflozin 10 mg tablet 10 mg PO DAILY #90 tabs 02/22/22 (Jardiance) potassium chloride 20 mEq 80 meq PO BID 30 days #240 tabs 04/02/22 tablet,extended release(part/cryst) Allergies Allergy/AdvReac Type Severity Reaction Status Date / Time oxycodone [Percocet] Allergy Unknown nausea and Verified 04/04/22 10:27 vomiting Review of Systems Constitutional: Constitutional: Reports no additional constitutional complaints, Denies chills, Denies fever(s), Denies night sweats and Reports weight gain Eyes: Eyes: Reports no additional eye complaints, Denies blurry vision, Denies change in vision, Denies diplopia, Denies eye discharge, Denies loss of vision and Denies eye pain ENT: Denies dizziness Cardiovascular: Cardiovascular: Reports no additional cardiovascular complaints, Denies chest pain, Reports leg edema, Denies lightheadedness, Denies Loss of Consciousness and Reports dyspnea Respiratory: Respiratory: Reports no additional respiratory complaints and Reports dyspnea Gastrointestinal: Gastrointestinal: Reports no additional gastrointestinal complaints, Denies abdominal pain, Denies melena, Denies hematochezia, Denies change in bowel habits and Denies change in stool character Genitourinary: Genitourinary: Denies hematuria, Denies urinary frequency, Denies dysuria, Denies urinary incontinence, Denies urinary hesitancy and Denies urinary urgency Musculoskeletal: Musculoskeletal: Reports no additional musculoskeletal complaints, Denies numbness and Denies tingling Neurologic: Denies dizziness, Denies loss of vision, Denies numbness and Denies tingling Psychiatric: Psychiatric: Reports no additional psychiatric complaints Endocrine: Endocrine: Reports no additional endocrine complaints Hematologic/Lymphatic: Hematologic/Lymphatic: Reports no additional hematologic/lymphatic complaints Allergic/Immunologic: Allergic/Immunologic: Reports no additional allergic/immunologic complaints [facility] Past Medical History Attestation statement: The following information was validated with the patient. Source: old records reviewed Medical History (HFpEF) heart failure with preserved ejection fraction CHF exacerbation CKD (chronic kidney disease) Congestive heart failure Congestive heart failure (CHF) COPD (chronic obstructive pulmonary disease) Diabetes mellitus HLD (hyperlipidemia) HTN (hypertension) jail (current) use of insulin Morbid obesity Paroxysmal atrial fibrillation Persistent atrial fibrillation Phlebitis of left leg Pulmonary hypertension Right heart failure (secondary to left heart failure) Supplemental oxygen dependent T2DM (type 2 diabetes mellitus) Tricuspid regurgitation Vitamin D deficiency Surgical History History of colectomy (~1983) History of colonoscopy History of hernia repair (~07/2011) History of hysteroscopy (~2007) History of left breast biopsy (~04/09/11) History of left inguinal hernia repair (~01/28/20) Family History Family History Father No problems noted. Mother No problems noted. Brother No problems noted. Son No problems noted. Other Substance use disorder Social History Social History Household Members: None Housing: Apartment Do you presently have visiting nurse or other home services: Yes ([employer] - showers X2 weekly. Someone else does laundry and shopping.) Alcohol intake: former Patient Tobacco Use Status: Former Tobacco user Use of substances other than those prescribed or required for medical reasons: No Advance Directives: Yes Advance Directives on File: Yes Advance Directives Date on File: 02/09/21 service: No Current occupational status: retired Physical Exam ED Vital Signs: Vital Signs - 24 hr 04/04/22 09:31 04/04/22 10:33 04/04/22 11:37 Temperature 97.6 F 99.3 F Pulse Rate 84 94 76 Respiratory Rate 22 H 20 20 Blood Pressure 104/78 103/67 102/58 L Pulse Oximetry 96 95 100 Oxygen Delivery Method Nasal Cannula Nasal Cannula Nasal Cannula Oxygen Flow Rate 2 2 04/04/22 12:29 Temperature Pulse Rate 90 Respiratory Rate 20 Blood Pressure 104/49 L Pulse Oximetry 94 Oxygen Delivery Method Nasal Cannula Oxygen Flow Rate 2 BMI result Body Mass Index 40.9 Const General: cooperative, no acute distress, alert and awake Nutritional Appearance: well nourished and obese Orientation/consciousness: patient oriented x3 Limitations: no limitations HENMT Head: Yes normal to inspection and Yes atraumatic Ears: hearing grossly normal bilaterally and external ears normal General nose exam: Normal external nose present, no nasal discharge noted and no epistaxis Face and sinus: Yes normal facial exam, No abrasion and No laceration Mouth: Normal oral and palatal mucosa present, no drooling and no muffled voice Eyes General: appearance normal, both eyes and all related structures Periorbital: periorbital findings normal Eyelids: Yes eyelids normal Conjunctivae: conjunctivae normal Pupils: Equal, round and reactive pupils present EOM: EOMs intact bilaterally Neck Neck: Yes normal visual inspection, Yes full ROM and Yes no lymphadenopathy Chest Chest palpation & inspection: normal inspection of the chest Resp Effort & Inspection: able to speak in complete sentences and labored Cardio Rate: regular rate Rhythm: regular rhythm Peripheral pulses: Peripheral pulses 2+ throughout GI Inspection: Yes normal to inspection Neuro General: patient oriented x3 and moves all extremities Cranial nerves: Yes Equal, round and reactive pupils present Cognition (Neuro): normal cognition Motor exam (neuro): 5/5 motor strength present throughout Sensory Exam: Normal double simultaneous stimulation for sensation Coordination: [id number] test normal Extrem General: Yes normal to inspection, Yes full ROM and Yes capillary refill normal Right lower extremity: edema Left lower extremity: edema Psych Appearance: grossly normal Mental Status: mental status grossly normal Affect: normal affect Attitude: cooperative Thought process: Normal thought process present Thought content: Normal thought content present Insight: Good insight present (Psych) Medical Decision Making [facility] Narrative Medical decision making narrative: Patient is a 72 year old female presenting to the emergency department today with a CHF exacerbation. Patient's physical exam showed bilateral lower leg edema with minimal erythema and no warmth. Patient's breathing was some what labored. Patient's blood work showed a decreased potassium of 2.8, BUN of 45, CR of 1.44, BNP of 402, initial troponin of 23.9 and a repeat of 22.9. Patient's EKG was unremarkable. Patient's chest x-ray showed no acute process. I explained my physical exam findings as well as all test results to the patient. I answered all questions asked by the patient. Patient was given IV and PO Potassium. I spoke to Dr. Landers, who agreed to admission. Patient verbalized agreement and understanding with this treatment plan and admission. Differential Diagnosis Differential Diagnosis: CHF exacerbation Medical Records Medical records reviewed: Yes I reviewed the patient's medical records. Lab Data Lab results reviewed: Yes I reviewed the patient's lab results. Result diagrams: 04/04/22 12:06 04/04/22 12:06 Labs: Lab Results 04/04/22 04/04/22 04/04/22 Range/Units 10:34 12:06 12:06 WBC 10.6 (4.8-10.8) X10*3/uL RBC 3.99 L (4.20-5.50) X10*6/uL Hgb 12.7 (12.0-16.0) g/dl Hct 38.5 (37.0-47.0) % MCV 96.5 (80.0-98.0) fL MCH 31.8 (27.0-33.0) pg MCHC 33.0 (31.0-35.0) g/dl RDW 17.3 H (11.0-16.0) % Plt Count 252 (160-400) X10*3/uL MPV 9.2 L (9.4-12.3) fL Immature Gran % (Auto) 0.7 H (0.0-0.4) % Neut % (Auto) 79.0 H (45-73) % Lymph % (Auto) 10.7 L (20-40) % Stephenson % (Auto) 8.5 (2-11) % Eos % (Auto) 0.6 (0-4) % Baso % (Auto) 0.5 (0-2) % Lymph # (Auto) 1.1 L (1.2-4.9) X10*3/uL Stephenson # (Auto) 0.9 (0.1-1.2) X10*3/uL Eos # (Auto) 0.1 (0.0-0.4) X10*3/uL Baso # (Auto) 0.1 (0.0-0.2) X10*3/uL Abs Immat Gran (auto) 0.07 H (0.00-0.03) X10*3/uL Absolute Neuts (auto) 8.4 H (2.0-8.3) x10*3/uL Absolute Nucleated RBC 0.000 (0.0-0.012) X10*3/uL Nucleated RBC % (auto) 0.0 (0.0-0.2) /100WBC Smear Tech's Comments VERIFIED O2 Saturation 96.0 % ABG pH at Pt Temp 7.52 H (7.35-7.45) ABG pCO2 at Pt Temp 32 (32-45) mmHg ABG pO2 at Pt Temp 94 (83-108) mmHg ABG HCO3 26 (22-26) mmol/L ABG Base Excess (Actual) 4.3 mmol/L Sodium 139 (135-145) mmol/L Potassium 2.8 L (3.3-5.1) mmol/L Chloride 89 L (96-108) mmol/L Carbon Dioxide 31 H (22-29) mmol/L Anion Gap 22 H (12-20) BUN 45 H (9-16) mg/dL Creatinine 1.44 H (0.5-1.4) mg/dL Estim Creat Clear Calc 43.3 Estimated GFR 36 Random Glucose 162 H (60-115) mg/dL Calcium 9.2 (8.4-10.2) mg/dL Magnesium 2.2 (1.6-2.6) mg/dL Total Bilirubin 1.5 H (0.0-1.0) mg/dL AST 26 (5-31) U/L ALT 15 (0-31) U/L Alkaline Phosphatase 111 (39-117) U/L Troponin I High Sens (<3.5-17.0) ng/L B-Natriuretic Peptide (<100) pg/mL Total Protein 6.7 (6.5-8.0) g/dL Albumin 3.5 (3.5-5.0) g/dL COVID-19 ([facility]) (Negative) COVID-19 Clin Com 04/04/22 04/04/22 Range/Units 12:13 12:13 WBC (4.8-10.8) X10*3/uL RBC (4.20-5.50) X10*6/uL Hgb (12.0-16.0) g/dl Hct (37.0-47.0) % MCV (80.0-98.0) fL MCH (27.0-33.0) pg MCHC (31.0-35.0) g/dl RDW (11.0-16.0) % Plt Count (160-400) X10*3/uL MPV (9.4-12.3) fL Immature Gran % (Auto) (0.0-0.4) % Neut % (Auto) (45-73) % Lymph % (Auto) (20-40) % Stephenson % (Auto) (2-11) % Eos % (Auto) (0-4) % Baso % (Auto) (0-2) % Lymph # (Auto) (1.2-4.9) X10*3/uL Stephenson # (Auto) (0.1-1.2) X10*3/uL Eos # (Auto) (0.0-0.4) X10*3/uL Baso # (Auto) (0.0-0.2) X10*3/uL Abs Immat Gran (auto) (0.00-0.03) X10*3/uL Absolute Neuts (auto) (2.0-8.3) x10*3/uL Absolute Nucleated RBC (0.0-0.012) X10*3/uL Nucleated RBC % (auto) (0.0-0.2) /100WBC Smear Tech's Comments O2 Saturation % ABG pH at Pt Temp (7.35-7.45) ABG pCO2 at Pt Temp (32-45) mmHg ABG pO2 at Pt Temp (83-108) mmHg ABG HCO3 (22-26) mmol/L ABG Base Excess (Actual) mmol/L Sodium (135-145) mmol/L Potassium (3.3-5.1) mmol/L Chloride (96-108) mmol/L Carbon Dioxide (22-29) mmol/L Anion Gap (12-20) BUN (9-16) mg/dL Creatinine (0.5-1.4) mg/dL Estim Creat Clear Calc Estimated GFR Random Glucose (60-115) mg/dL Calcium (8.4-10.2) mg/dL Magnesium (1.6-2.6) mg/dL Total Bilirubin (0.0-1.0) mg/dL AST (5-31) U/L ALT (0-31) U/L Alkaline Phosphatase (39-117) U/L Troponin I High Sens 23.9 H (<3.5-17.0) ng/L B-Natriuretic Peptide 402 H (<100) pg/mL Total Protein (6.5-8.0) g/dL Albumin (3.5-5.0) g/dL COVID-19 ([facility]) Negative (Negative) COVID-19 Clin Com See Note Imaging Data Chest x-ray: Attestation: I personally reviewed and interpreted this imaging study as follows: My impression: No acute process. Radiologist's impression: EXAMINATION: XR CHEST CLINICAL INFORMATION: Shortness of breath. COMPARISON: 01/29/2022 chest radiograph. TECHNIQUE: 2 views of the chest were obtained. FINDINGS: No significant abnormality is noted involving the heart, lungs, mediastinum, bony thorax or soft tissues. XR/XR chest 2V IMPRESSION: No acute cardiopulmonary process. Dictated By: Steve Rehman MD Signed By: Electronically signed by Steve Rehman MD 04/04/22 1316 ECG Data Attestation: I personally reviewed and interpreted this ECG as follows: Prior ECG tracings: available for review Interpretation: Vent. Rate: 095 BPM ? ? Atrial Rate: 000 BPM P-R Int: 000 ms? QRS Dur: 070 ms QT Int: 414 ms ? ? ? P-R-T Axes: 000 006 -36 degrees QTc Int: 520 ms ? Atrial fibrillation with premature ventricular or aberrantly conducted complexes Low voltage QRS Septal infarct (cited on or before 29-JAN-2022) Abnormal ECG When compared with ECG of 29-JAN-2022 15:21, Questionable change in QRS duration Heart rate has decreased ? ? Electronically Signed By:HARSHAD PALMER DOFACP Dictated By: Harshad Palmer DO Signed By: Electronically signed by Harshad Palmer DO 04/04/22 1137 Critical Care Time Critical Care Time Critical Care Time: Yes Total Critical Care Time: 30 Attestation: I spent 30 minutes of Critical Care Time with this patient. This does not include time spent on separately reported billable procedures. Discharge Plan Discharge Clinical Impression: Acute exacerbation of congestive heart failure Patient Disposition: Admitted As Inpatient
--- NOTE | 2022-04-04 09:55 | ECG_ITS ---
Test Reason : sob Blood Pressure : / mmHG Vent. Rate : 095 BPM Atrial Rate : 000 BPM P-R Int : 000 ms QRS Dur : 070 ms QT Int : 414 ms P-R-T Axes : 000 006 -36 degrees QTc Int : 520 ms Atrial fibrillation with premature ventricular or aberrantly conducted complexes Low voltage QRS Septal infarct (cited on or before 29-JAN-2022) Abnormal ECG When compared with ECG of 29-JAN-2022 15:21, Questionable change in QRS duration Heart rate has decreased Referred By: Shelia Benitez Electronically Signed By:HARSHAD BARNETT
[2022-04-04 10:39] LABS: ABG Base Excess 4.3 mmol/L; ABG HCO3 26 mmol/L (22-26); ABG pCO2 32 mmHg (32-45); ABG pH 7.52 (7.35-7.45); ABG pO2 94 mmHg (83-108)
[2022-04-04] MEDS: Bumetanide 1 MG/4 ML VIAL 2 MG IVPUSH ×2 (10:42→19:17)
--- NOTE | 2022-04-04 10:42 | PM.CNCAR ---
History of Present Illness History of Present Illness Date of Service: 04/04/22 Requesting physician: Chinmay Robertson Chief complaint: CHF Narrative: 72-year-old female with known history of diastolic heart failure, COPD, morbid obesity, diabetic neuropathy, hypertension, hyperlipidemia, tricuspid regurgitation, kidney disease and pulmonary hypertension. She was referred for CardioMEMS device and came for the procedure today. She was short of breath even with talking and reported approximately 10-12 lb weight gain. She has significant peripheral edema with significant erythema on both lower extremities. We decided to cancel the procedure and admit her for diuretic therapy. She has been taking medications regularly. She was off Xarelto since Friday. She is saying her weight has been fluctuating up and down and it is hard for her to keep track of that. [facility] Past Medical History Medical History (Updated 04/04/22 @ 15:18 by Dave Lau MD) (HFpEF) heart failure with preserved ejection fraction CHF exacerbation CKD (chronic kidney disease) Congestive heart failure Congestive heart failure (CHF) COPD (chronic obstructive pulmonary disease) Diabetes mellitus HLD (hyperlipidemia) HTN (hypertension) [facility] (current) use of insulin Morbid obesity Paroxysmal atrial fibrillation Persistent atrial fibrillation Phlebitis of left leg Pulmonary hypertension Right heart failure (secondary to left heart failure) Supplemental oxygen dependent T2DM (type 2 diabetes mellitus) Tricuspid regurgitation Vitamin D deficiency Family History Family History Father No problems noted. Mother No problems noted. Brother No problems noted. Son No problems noted. Other Substance use disorder Surgical History Surgical History History of colectomy (~1983) History of colonoscopy History of hernia repair (~07/2011) History of hysteroscopy (~2007) History of left breast biopsy (~04/09/11) History of left inguinal hernia repair (~01/28/20) Social History Social History Household Members: None Housing: Apartment Do you presently have visiting nurse or other home services: Yes ([employer] - showers X2 weekly. Someone else does laundry and shopping.) Alcohol intake: former Patient Tobacco Use Status: Former Tobacco user Use of substances other than those prescribed or required for medical reasons: No Advance Directives: Yes Advance Directives on File: Yes Advance Directives Date on File: 02/09/21 service: No Current occupational status: retired Meds Allergies Allergy/AdvReac Type Severity Reaction Status Date / Time oxycodone [Percocet] Allergy Unknown nausea and Verified 04/04/22 10:27 vomiting Active Medications: Current Medications Pharmacy Consult (Consult Rx Perform Med Rec) 1 each MISCELLANE ONCE PRN PRN Reason: Consult order Home Medications Medication Instructions Recorded Confirmed Last Taken Type cholecalciferol (vitamin D3) 25 25 mcg PO DAILY 04/24/20 04/04/22 04/03/22 History mcg (1,000 unit) capsule vitamin B complex 1 tab PO DAILY 04/24/20 04/04/22 04/03/22 History zinc acetate 50 mg (zinc) capsule 50 mg PO DAILY 04/24/20 04/04/22 04/03/22 History multivitamin 1 tab PO DAILY 06/13/20 04/04/22 04/03/22 History ferrous sulfate 325 mg (65 mg 325 mg PO DAILY 09/14/20 04/04/22 04/03/22 History iron) tablet (Feosol) docusate sodium 100 mg capsule 100 mg PO DAILY 05/31/21 04/04/22 04/03/22 History (Colace) allopurinol 100 mg tablet 100 mg PO DAILY 09/24/21 04/04/22 04/03/22 History bumetanide 1 mg tablet 4 mg PO BID@0800,1700 04/04/22 04/04/22 04/03/22 History dulaglutide 4.5 mg/0.5 mL 4.5 mg subcut TH@0900 04/04/22 04/04/22 04/03/22 History subcutaneous pen injector (Trulicity) fluticasone 500 mcg-salmeterol 50 1 inh inhalation BID 04/04/22 04/04/22 04/04/22 History mcg/dose blistr powdr for inhalation (Advair Diskus) insulin aspart U-100 100 unit/mL 25 unit subcut TIDAC 04/04/22 04/04/22 04/03/22 History (3 mL) subcutaneous pen (Novolog Flexpen U-100 Insulin aspart) insulin glargine 100 unit/mL (3 10 unit subcut DAILY@1200 04/04/22 04/04/22 04/03/22 History mL) subcutaneous pen (Basaglar KwikPen U-100 Insulin) insulin glargine 100 unit/mL (3 35 unit subcut DAILY@0700 04/04/22 04/04/22 04/03/22 History mL) subcutaneous pen (Basaglar KwikPen U-100 Insulin) metolazone 5 mg tablet 5 mg PO DAILY 04/04/22 04/04/22 04/03/22 History rivaroxaban 20 mg tablet (Xarelto) 20 mg PO DAILY@1500 04/04/22 04/04/22 04/03/22 History Physical Exam Vital Signs: Vital Signs: Last Vital Signs Temp 99.3 F 04/04/22 10:33 Pulse 94 04/04/22 10:33 Resp 20 04/04/22 10:33 BP 103/67 04/04/22 10:33 Pulse Ox 95 04/04/22 10:33 O2 Del Method 04/04/22 10:33 O2 Flow Rate 2 04/04/22 10:33 BMI result Body Mass Index 40.9 GENERAL APPEARANCE: Short of breath, on nasal cannula. NECK: no carotid bruit, elevated JVD. SKIN: no suspicious lesions, warm and dry. HEART: no murmurs, irregularly irregular rhythm. LUNGS: CTABL. ABDOMEN: soft, nontender. EXTREMITIES: 2+ edema. Significant erythema. PERIPHERAL PULSES: equal. NEUROLOGIC: No gross deficits, AAO X 3 Objective Labs and Meds Result diagrams: 04/04/22 12:06 04/04/22 12:06 Lab results: Laboratory Results - last 24 hr 04/04/22 10:34 O2 Saturation 96.0 ABG pH at Pt Temp 7.52 H ABG pCO2 at Pt Temp 32 ABG pO2 at Pt Temp 94 ABG HCO3 26 ABG Base Excess (Actual) 4.3 Assessment and Plan (1) CHF exacerbation: Status: Acute Plan 72-year-old female who has background of diastolic heart failure, pulmonary hypertension tricuspid valve regurgitation who presented for CardioMEMS device implantation today but was noted to be volume overloaded. We decided to cancel the procedure and admit her for IV diuretics. She has been noted to have significant hypokalemia on her blood workup. Please replete potassium. Increase the spironolactone to 25 mg twice a day. Start IV diuretics with Bumex 2 mg IV b.i.d.. Monitor electrolytes and I's and O's closely. I will start diuretics after repeating potassium potassium. We will plan for her to have CardioMEMS placed soon after current discharge. Thank you for allowing me to participate in the care of your patient. Please feel free to contact me if you have any questions. Procedures Date of Service Date of Service: 04/04/22
--- NOTE | 2022-04-04 11:50 | PC.NURSE ---
perwick in place and darning about 500ml of yellow urine
[2022-04-04 12:25] LABS: Basophils Absolute Auto 0.1 X10*3/uL (0.0-0.2); Basophils Percent Auto 0.5 % (0-2); Eosinophils Absolute Auto 0.1 X10*3/uL (0.0-0.4); Eosinophils Percent Auto 0.6 % (0-4); Hematocrit 38.5 % (37.0-47.0); Hemoglobin 12.7 g/dl (12.0-16.0); Imm Gran Abs Auto 0.07 X10*3/uL (0.00-0.03); Imm Gran Pct Auto 0.7 % (0.0-0.4); Lymphocytes Absolute Auto 1.1 X10*3/uL (1.2-4.9); Lymphocytes Percent Auto 10.7 % (20-40); MANUAL DIFF FLAG SCAN; Mean Corpuscular Hemoglobin 31.8 pg (27.0-33.0); Mean Corpuscular Volume 96.5 fL (80.0-98.0); Mean Platelet Volume 9.2 fL (9.4-12.3); Monocytes Absolute Auto 0.9 X10*3/uL (0.1-1.2); Monocytes Percent Auto 8.5 % (2-11); Neutrophils Absolute Auto 8.4 x10*3/uL (2.0-8.3); PLT CLUMP 1; Red Blood Count 3.99 X10*6/uL (4.20-5.50); Red Cell Distribution Width 17.3 % (11.0-16.0); SCAN SMEAR FLAG 1
[2022-04-04 12:38] LABS: COVID-19 Test Negative (Negative)
[2022-04-04 12:43] LABS: B Type Natriuretic Peptide 402 pg/mL (<100); Troponin-I High Sensitivity 23.9 ng/L (<3.5-17.0)
--- NOTE | 2022-04-04 12:49 | PHA.MEDREC ---
Addendum entered by Roxann Campos [facility] 04/04/22 13:01: patient states potassium chloride increased to 80 meq bid, bumex increased to 4 mg bid, xarelto changed to 20 mg daily, metolazone increased to 1 tab per day. Original Note: Pharmacy Consult ? Medication Reconciliation Pharmacy has completed the medication reconciliation.Spoke with patient in the ED who had a list of medications and knew all medications and doses.
[2022-04-04 12:50] LABS: Alanine Aminotransferase 15 U/L (0-31); Albumin Level 3.5 g/dL (3.5-5.0); Alkaline Phosphatase 111 U/L (39-117); Aspartate Amino Transferase 26 U/L (5-31); Bilirubin Total 1.5 mg/dL (0.0-1.0); Blood Urea Nitrogen 45 mg/dL (9-16); Calcium 9.2 mg/dL (8.4-10.2); Creatinine Clr Calc Pharmacy 43.3; Estimated Glomerular Filt Rate 36; Glucose Random 162 mg/dL (60-115); Magnesium 2.2 mg/dL (1.6-2.6); Total Protein 6.7 g/dL (6.5-8.0)
[2022-04-04 13:24] LABS: Anion Gap 22 (12-20); Carbon Dioxide 31 mmol/L (22-29); Chloride 89 mmol/L (96-108); Potassium 2.8 mmol/L (3.3-5.1); Sodium 139 mmol/L (135-145)
[2022-04-04] MEDS: Potassium Chloride ER 20 MEQ TAB.ER.PRT 40 MEQ PO (14:13)
[2022-04-04 14:20] LABS: ABG Refer to POC result
[2022-04-04 14:26] LABS: Platelet Count 252 X10*3/uL (160-400); SLIDE REVIEW VERIFIED; White Blood Count 10.6 X10*3/uL (4.8-10.8)
[2022-04-04 14:54] LABS: Glucose, Whole Blood 146 mg/dL (60-115)
[2022-04-04] MEDS: Gabapentin 300 MG CAPSULE PO ×2 (15:13→21:38)
[2022-04-04] MEDS: Rivaroxaban 20 MG TABLET PO (15:13)
--- NOTE | 2022-04-04 15:23 | P.HPHOSP_ITS ---
History of Present Illness Date of Service: 04/04/22 Chief Complaint: leg swelling 72-year-old female with known history of diastolic heart failure, COPD, morbid obesity, diabetic neuropathy, hypertension, hyperlipidemia, tricuspid regurgitation, kidney disease and pulmonary hypertension.? She was referred for CardioMEMS device and came for the procedure today.? She was short of breath even with talking and reported approximately 10-12 lb weight gain.? She has significant peripheral edema with significant erythema on both lower extremities.She will be admitted for aggressive diuresis Review of Systems Review of Systems: ?Patient denies any dizziness, lightheadedness, abdominal pain, nausea, vomiting, fever, chills, blurry vision, double vision, loss of vision, chest pain, back pain, night sweats, pain with urination, increased urinary frequency, increased urinary urgency, blood in her urine or stool, syncope or a near syncopal episode, recent trauma or falls, bowel incontinence, bladder incontinence, bowel retention, bladder retention, or any other complaints at this time. Patient states that she is compliant with all of her medications, including her xarelto. 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 Mother No problems noted. Brother No problems noted. Son No problems noted. Other Substance use disorder Surgical History History of colectomy (~1983) History of colonoscopy History of hernia repair (~07/2011) History of hysteroscopy (~2007) History of left breast biopsy (~04/09/11) History of left inguinal hernia repair (~01/28/20) Social History Household Members: None Housing: Apartment Do you presently have visiting nurse or other home services: Yes ([facility] - showers X2 weekly. Someone else does laundry and shopping.) Alcohol intake: former Patient Tobacco Use Status: Former Tobacco user Use of substances other than those prescribed or required for medical reasons: No Advance Directives: Yes Advance Directives on File: Yes Advance Directives Date on File: 02/09/21 service: No Current occupational status: retired Meds Allergies Allergy/AdvReac Type Severity Reaction Status Date / Time oxycodone [Percocet] Allergy Unknown nausea and Verified 04/04/22 10:27 vomiting Active Medications: Current Medications Albuterol Sulfate (Albuterol Sulfate 90 Mcg 8 Gm Inhaler) 2 puff INHALE Q6H PRN PRN Reason: shortness of breath or wheezing Allopurinol (Allopurinol 100 Mg Tablet) 100 mg PO DAILY [facility] Bumetanide (Bumetanide 1 Mg/4 Ml Vial) 2 mg IVPUSH BID@0900,1700 [facility]; Protocol Docusate Sodium (Docusate Sodium 100 Mg Capsule) 100 mg PO DAILY [facility] Empagliflozin (Empagliflozin 10 Mg Tablet) 10 mg PO DAILY [facility] Ferrous Sulfate (Ferrous Sulfate 324 Mg Tablet.Dr) 324 mg PO DAILY [facility] Fluticasone/Vilanterol (Fluticasone/Vilanterol 200/25 Blst.W.Dev) 1 puff INHALE RDAILY [facility] Gabapentin (Gabapentin 300 Mg Capsule) 300 mg PO TID [facility] Last Admin: 04/04/22 15:13 Dose: 300 mg Piperacillin Sod/Tazobactam (Sod 2.25 gm/ Sodium Chloride) 50 mls @ 100 mls/hr IV Q6H [facility] Insulin Glargine (Insulin Glargine,Hum.Rec.Anlog 100 Unit/Ml 10 Ml Vial) 35 unit SUBCUT DAILY@0700 [facility] Insulin Human Lispro (Insulin Lispro 100 Unit/Ml 3 Ml Vial) 0 unit SUBCUT QIDACHS [facility]; Protocol Multivitamins/Vitamin C (Multivitamin Tablet) 1 tab PO DAILY [facility] Pharmacy Consult (Consult Rx Perform Med Rec) 1 each MISCELLANE ONCE PRN PRN Reason: Consult order Potassium Chloride (Potassium Chloride Packet 20 Meq Packet) 40 meq PO BID [facility] Pravastatin Sodium (Pravastatin Sodium 20 Mg Tablet) 20 mg PO BEDTIME [facility] Rivaroxaban (Rivaroxaban 20 Mg Tablet) 20 mg PO DAILY@1500 [facility] Last Admin: 04/04/22 15:13 Dose: 20 mg Sodium Chloride (0.9 % Sodium Chloride Flush 3 Ml Syringe) 3 ml IVFLUSH QSHIFT [facility] Spironolactone (Spironolactone 25 Mg Tablet) 25 mg PO DAILY [facility]; Protocol Tiotropium [place] (Tiotropium [place] 18 Mcg Cap.W.Dev) 1 puff INHALE RDAILY [facility] Vitamin D (Cholecalciferol (Vitamin D3) 25 Mcg Tablet) 25 mcg PO DAILY [facility] Zinc Sulfate (Zinc Sulfate 220 Mg Capsule) 220 mg PO DAILY [facility] Home Medications Medication Instructions Recorded Confirmed Last Taken Type cholecalciferol (vitamin D3) 25 25 mcg PO DAILY 04/24/20 04/04/22 04/03/22 History mcg (1,000 unit) capsule vitamin B complex 1 tab PO DAILY 04/24/20 04/04/22 04/03/22 History zinc acetate 50 mg (zinc) capsule 50 mg PO DAILY 04/24/20 04/04/22 04/03/22 History multivitamin 1 tab PO DAILY 06/13/20 04/04/22 04/03/22 History ferrous sulfate 325 mg (65 mg 325 mg PO DAILY 09/14/20 04/04/22 04/03/22 History iron) tablet (Feosol) docusate sodium 100 mg capsule 100 mg PO DAILY 05/31/21 04/04/22 04/03/22 History (Colace) allopurinol 100 mg tablet 100 mg PO DAILY 09/24/21 04/04/22 04/03/22 History bumetanide 1 mg tablet 4 mg PO BID@0800,1700 04/04/22 04/04/22 04/03/22 History dulaglutide 4.5 mg/0.5 mL 4.5 mg subcut TH@0900 04/04/22 04/04/22 04/03/22 History subcutaneous pen injector (Trulicity) fluticasone 500 mcg-salmeterol 50 1 inh inhalation BID 04/04/22 04/04/22 04/04/22 History mcg/dose blistr powdr for inhalation (Advair Diskus) insulin aspart U-100 100 unit/mL 25 unit subcut TIDAC 04/04/22 04/04/22 04/03/22 History (3 mL) subcutaneous pen (Novolog Flexpen U-100 Insulin aspart) insulin glargine 100 unit/mL (3 10 unit subcut DAILY@1200 04/04/22 04/04/22 04/03/22 History mL) subcutaneous pen (Basaglar KwikPen U-100 Insulin) insulin glargine 100 unit/mL (3 35 unit subcut DAILY@0700 04/04/22 04/04/22 04/03/22 History mL) subcutaneous pen (Basaglar KwikPen U-100 Insulin) metolazone 5 mg tablet 5 mg PO DAILY 04/04/22 04/04/22 04/03/22 History rivaroxaban 20 mg tablet (Xarelto) 20 mg PO DAILY@1500 04/04/22 04/04/22 04/03/22 History Physical Exam Vital Signs and Narrative: Vital Signs: Last Vital Signs Temp 99.3 F 04/04/22 10:33 Pulse 93 04/04/22 15:17 Resp 18 04/04/22 15:17 BP 105/62 04/04/22 15:17 Pulse Ox 98 04/04/22 15:17 O2 Del Method 04/04/22 15:17 O2 Flow Rate 2 04/04/22 15:17 BMI result Body Mass Index 40.9 Const: Other: Resting quietly in bed no respiratory distress Resp: Other: Clear to auscultation bilaterally no rales rhonchi or wheezes Cardio: Other: No S4; positive S1-S2; no S3 murmurs rubs gallops GI: Other: Soft nontender nondistended with normoactive bowel sounds Extrem: Other: A 2+ edema bilaterally Results Labs CBC and Chem 7: 04/04/22 12:06 04/04/22 12:06 Labs: Laboratory Results - last 24 hr 04/04/22 04/04/22 04/04/22 10:34 12:06 12:06 MCV 96.5 MCH 31.8 MCHC 33.0 RDW 17.3 H Plt Count 252 MPV 9.2 L Immature Gran % (Auto) 0.7 H Neut % (Auto) 79.0 H Lymph % (Auto) 10.7 L [place] % (Auto) 8.5 Eos % (Auto) 0.6 Baso % (Auto) 0.5 Lymph # (Auto) 1.1 L [place] # (Auto) 0.9 Eos # (Auto) 0.1 Baso # (Auto) 0.1 Abs Immat Gran (auto) 0.07 H Absolute Neuts (auto) 8.4 H Absolute Nucleated RBC 0.000 Nucleated RBC % (auto) 0.0 Smear Tech's Comments VERIFIED O2 Saturation 96.0 ABG pH at Pt Temp 7.52 H ABG pCO2 at Pt Temp 32 ABG pO2 at Pt Temp 94 ABG HCO3 26 ABG Base Excess (Actual) 4.3 Anion Gap 22 H Estim Creat Clear Calc 43.3 Estimated GFR 36 POC Glucose Random Glucose 162 H Calcium 9.2 Magnesium 2.2 Total Bilirubin 1.5 H AST 26 ALT 15 Alkaline Phosphatase 111 B-Natriuretic Peptide Total Protein 6.7 Albumin 3.5 COVID-19 ([facility]) COVID-Unified Office 04/04/22 04/04/22 04/04/22 12:13 12:13 14:49 MCV MCH MCHC RDW Plt Count MPV Immature Gran % (Auto) Neut % (Auto) Lymph % (Auto) [place] % (Auto) Eos % (Auto) Baso % (Auto) Lymph # (Auto) [place] # (Auto) Eos # (Auto) Baso # (Auto) Abs Immat Gran (auto) Absolute Neuts (auto) Absolute Nucleated RBC Nucleated RBC % (auto) Smear Tech's Comments O2 Saturation ABG pH at Pt Temp ABG pCO2 at Pt Temp ABG pO2 at Pt Temp ABG HCO3 ABG Base Excess (Actual) Anion Gap Estim Creat Clear Calc Estimated GFR POC Glucose 146 H Random Glucose Calcium Magnesium Total Bilirubin AST ALT Alkaline Phosphatase B-Natriuretic Peptide 402 H Total Protein Albumin COVID-19 ([facility]) Negative COVID-19 Clin [facility] See Note Imaging Radiologist's Impressions: Impressions Chest X-Ray 04/04/22 11:50 IMPRESSION: No acute cardiopulmonary process. Assessment and Plan (1) CHF exacerbation: Status: Acute (2) T2DM (type 2 diabetes mellitus): Status: Acute (3) CKD (chronic kidney disease): Status: Acute (4) HTN (hypertension): Status: Acute Plan 72-year-old female who has background of diastolic heart failure, pulmonary hypertension tricuspid valve regurgitation who presented for CardioMEMS device implantation today but was noted to be volume overloaded. 1. Systolic CHF exacerbation -will switch Bumex to IV -aggressive potassium repletion -cardiology consult -titrate O2 to maintain sats greater than or equal to 90% 2.DMII -acceptable control currently on outpatient therapies -add lispro sliding scale -adjust as indicated 3. CKD 3 -at baseline -follow renals/divalents 4.HTN -acceptable control on current therapies -adjust as indicated Full code Xarelto Will require at least 2 nights going forward for IV diuresis related to exacerbation of systolic CHF. This cannot be achieved in a lesser acute setting Quality Stroke Does the patient have a stroke diagnosis?: No VTE Prior VTE?: No VTE Risk Level:: Medical - moderate - high VTE Device Contraindication: Treatment Not Indicated VTE Drug Contraindication: N/A - Med Ordered
[2022-04-04 15:30] LABS: Troponin-I High Sensitivity 22.9 ng/L (<3.5-17.0)
[2022-04-04] MEDS: Piperacillin Sodium/Tazobactam 3.375 GM in 0.9 % Sodium Chloride 50 ML IV ×2 (15:45→21:37)
[2022-04-04] MEDS: 0.9 % Sodium Chloride Flush 3 ML SYRINGE IVFLUSH (15:49)
[2022-04-04] MEDS: Insulin Lispro 100 UNIT/ML 3 ML VIAL SUBCUT ×2 (19:31→21:37)
[2022-04-04 19:32] LABS: Glucose, Whole Blood 179 mg/dL (60-115)
--- NOTE | 2022-04-04 19:36 | PC.NURSE ---
report received from hoda RN - pt eating dinner. vital signs updated. 2 units insulin lispro given per [facility] orders for BS of 179. resting comfortably. purewick in place, 1300 ml urine emptied, cannister replaced. no apparent distress. will continue to monitor
[2022-04-04 21:35] LABS: Glucose, Whole Blood 258 mg/dL (60-115)
[2022-04-04] MEDS: Potassium Chloride Packet 20 MEQ PACKET 40 MEQ PO (21:38)
[2022-04-04] MEDS: Pravastatin Sodium 20 MG TABLET PO (21:38)
--- NOTE | 2022-04-04 23:05 | PC.NURSE ---
pt cleaned up, sheets changed, and repositioned in bed - on electronic device monitor. call prince within reach. wearing 2L O2 via nasal cannula. no apparent distress.
[2022-04-05] VITALS (7 sets, daily range): BP systolic 98–113; BP diastolic 55–78; PULSE 68–106; RESP 16–22; TEMP 36.3–36.6; O2SAT 94–98
[2022-04-05] MEDS: Piperacillin Sodium/Tazobactam 3.375 GM in 0.9 % Sodium Chloride 50 ML IV ×4 (04:35→22:01)
[2022-04-05 07:01] LABS: MANUAL DIFF FLAG NO
[2022-04-05 07:06] LABS: Basophils Absolute Auto 0.1 X10*3/uL (0.0-0.2); Basophils Percent Auto 0.5 % (0-2); Eosinophils Absolute Auto 0.1 X10*3/uL (0.0-0.4); Eosinophils Percent Auto 1.3 % (0-4); Hematocrit 36.1 % (37.0-47.0); Hemoglobin 11.8 g/dl (12.0-16.0); Imm Gran Abs Auto 0.07 X10*3/uL (0.00-0.03); Imm Gran Pct Auto 0.7 % (0.0-0.4); Lymphocytes Absolute Auto 1.1 X10*3/uL (1.2-4.9); Lymphocytes Percent Auto 11.7 % (20-40); Mean Corpuscular HGB Conc 32.7 g/dl (31.0-35.0); Mean Corpuscular Hemoglobin 31.4 pg (27.0-33.0); Mean Platelet Volume 8.7 fL (9.4-12.3); Monocytes Absolute Auto 0.9 X10*3/uL (0.1-1.2); Monocytes Percent Auto 8.9 % (2-11); Neutrophils Absolute Auto 7.4 x10*3/uL (2.0-8.3); Neutrophils Percent Auto 76.9 % (45-73); Platelet Count 263 X10*3/uL (160-400); Red Blood Count 3.76 X10*6/uL (4.20-5.50); Red Cell Distribution Width 17.2 % (11.0-16.0); White Blood Count 9.6 X10*3/uL (4.8-10.8)
[2022-04-05 07:18] LABS: Glucose, Whole Blood 167 mg/dL (60-115)
[2022-04-05 07:44] LABS: Alanine Aminotransferase 14 U/L (0-31); Albumin Level 3.2 g/dL (3.5-5.0); Alkaline Phosphatase 95 U/L (39-117); Anion Gap 16 (12-20); Aspartate Amino Transferase 21 U/L (5-31); Blood Urea Nitrogen 43 mg/dL (9-16); Calcium 9.1 mg/dL (8.4-10.2); Carbon Dioxide 38 mmol/L (22-29); Chloride 91 mmol/L (96-108); Creatinine Clr Calc Pharmacy 33.2; Estimated Glomerular Filt Rate 26; Glucose Fasting 177 mg/dL (60-99); Magnesium 1.9 mg/dL (1.6-2.6); Potassium 2.6 mmol/L (3.3-5.1); Sodium 142 mmol/L (135-145); Total Protein 6.1 g/dL (6.5-8.0)
[2022-04-05] MEDS: Albuterol Sulfate 90 MCG 8 GM INHALER 2 PUFF INHALE (08:13)
[2022-04-05] MEDS: Zinc Sulfate 220 MG CAPSULE PO (08:35)
[2022-04-05] MEDS: allopurinoL 100 MG TABLET PO (08:36)
[2022-04-05] MEDS: Gabapentin 300 MG CAPSULE PO ×3 (08:36→22:01)
[2022-04-05] MEDS: Cholecalciferol (Vitamin D3) 25 MCG TABLET PO (08:36)
[2022-04-05] MEDS: Ferrous Sulfate 324 MG TABLET.DR PO (08:36)
[2022-04-05] MEDS: Docusate Sodium 100 MG CAPSULE PO (08:36)
[2022-04-05] MEDS: Multivitamin TABLET 1 TAB PO (08:36)
[2022-04-05] MEDS: Spironolactone 25 MG TABLET PO ×2 (08:36→18:44)
[2022-04-05] MEDS: Bumetanide 1 MG/4 ML VIAL 2 MG IVPUSH ×2 (08:37→18:44)
[2022-04-05] MEDS: Potassium Chloride Packet 20 MEQ PACKET 40 MEQ PO ×2 (08:37→09:53)
[2022-04-05] MEDS: Insulin Glargine,Hum.rec.anlog 100 UNIT/ML 10 ML VIAL 35 UNIT SUBCUT (08:39)
[2022-04-05] MEDS: Insulin Lispro 100 UNIT/ML 3 ML VIAL SUBCUT ×4 (08:39→22:01)
[2022-04-05] MEDS: 0.9 % Sodium Chloride Flush 3 ML SYRINGE IVFLUSH ×3 (08:54→22:01)
--- NOTE | 2022-04-05 09:43 | PC.NURSE ---
pt friend taking keys home from belongings bag
[2022-04-05] MEDS: Empagliflozin 10 MG TABLET PO (09:53)
[2022-04-05] MEDS: Magnesium Sulfate/D5W 1 GM/100 ML PIGGYBACK IV (10:51)
--- NOTE | 2022-04-05 11:58 | PC.NURSE ---
Pt refused Potassium IV stating it hannon too much . notified.
[2022-04-05 12:21] LABS: Glucose, Whole Blood 196 mg/dL (60-115)
--- NOTE | 2022-04-05 12:49 | MHC.CM.PN ---
Met with patient in regards to discharge planning. Patient lives alone, ambulates with a walker, has VNA through [facility] and oxygen through [facility] [place]. PCP verified. Copy of HCP verified to be on file. Patient received 2 [employer] Covid vaccines. IMM explained and signed. Patient's friend Leyda will transport patient home when medically stable. Continue to monitor for d/c needs.
--- NOTE | 2022-04-05 14:40 | HO.PM.IMPN ---
Subjective Subjective Date of Service: 04/05/22 Interval History: No acute issues overnight. Tolerating diuresis. Notes improvement overall Review of Systems ?Patient denies any dizziness, lightheadedness, abdominal pain, nausea, vomiting, fever, chills, blurry vision, double vision, loss of vision, chest pain, back pain, night sweats, pain with urination, increased urinary frequency, increased urinary urgency, blood in her urine or stool, syncope or a near syncopal episode, recent trauma or falls, bowel incontinence, bladder incontinence, bowel retention, bladder retention, or any other complaints at this time. Patient states that she is compliant with all of her medications, including her xarelto. Physical Exam Vital Signs: Vital Signs: Last Vital Signs Temp 97.6 F 04/05/22 08:29 Pulse 102 H 04/05/22 09:19 Resp 22 H 04/05/22 09:19 BP 108/63 04/05/22 08:29 Pulse Ox 95 04/05/22 08:29 O2 Del Method 04/05/22 08:29 O2 Flow Rate 2 04/05/22 08:29 BMI result Body Mass Index 40.9 Const: Other: Resting quietly in bed no respiratory distress Resp: Other: Clear to auscultation bilaterally no rales rhonchi or wheezes Cardio: Other: No S4; positive S1-S2; no S3 murmurs rubs gallops GI: Other: Soft nontender nondistended with normoactive bowel sounds Extrem: Other: A 2+ edema bilaterally Objective Data Active Medications Albuterol Sulfate (Albuterol Sulfate 90 Mcg 8 Gm Inhaler) 2 puff INHALE Q6H PRN PRN Reason: shortness of breath or wheezing Last Admin: 04/05/22 08:13 Dose: 2 puff Documented By: CHELITA Allopurinol (Allopurinol 100 Mg Tablet) 100 mg PO DAILY [facility] Last Admin: 04/05/22 08:36 Dose: 100 mg Documented By: ROSALIE Bumetanide (Bumetanide 1 Mg/4 Ml Vial) 2 mg IVPUSH BID@0900,1700 [facility]; Protocol Last Admin: 04/05/22 08:37 Dose: 2 mg Documented By: ROSALIE Docusate Sodium (Docusate Sodium 100 Mg Capsule) 100 mg PO DAILY [facility] Last Admin: 04/05/22 08:36 Dose: 100 mg Documented By: ROSALIE Empagliflozin (Empagliflozin 10 Mg Tablet) 10 mg PO DAILY [facility] Last Admin: 04/05/22 09:53 Dose: 10 mg Documented By: ROSALIE Ferrous Sulfate (Ferrous Sulfate 324 Mg Tablet.) 324 mg PO DAILY [facility] Last Admin: 04/05/22 08:36 Dose: 324 mg Documented By: ROSALIE Gabapentin (Gabapentin 300 Mg Capsule) 300 mg PO TID [facility] Last Admin: 04/05/22 08:36 Dose: 300 mg Documented By: ROSALIE Piperacillin Sod/Tazobactam (Sod 3.375 gm/ Sodium Chloride) 50 mls @ 100 mls/hr IV Q6H [facility] Last Infusion: 04/05/22 10:26 Dose: 0 mls/hr Documented By: THOR Insulin Glargine (Insulin Glargine,Hum.Rec.Anlog 100 Unit/Ml 10 Ml Vial) 35 unit SUBCUT DAILY@0700 [facility] Last Admin: 04/05/22 08:39 Dose: 35 unit Documented By: ROSALIE Insulin Human Lispro (Insulin Lispro 100 Unit/Ml 3 Ml Vial) 0 unit SUBCUT QIDACHS [facility]; Protocol Last Admin: 04/05/22 12:39 Dose: 2 unit Documented By: ROSALIE Multivitamins/Vitamin C (Multivitamin Tablet) 1 tab PO DAILY [facility] Last Admin: 04/05/22 08:36 Dose: 1 tab Documented By: ROSALIE Pharmacy Consult (Consult Rx Perform Med Rec) 1 each MISCELLANE ONCE PRN PRN Reason: Consult order Pravastatin Sodium (Pravastatin Sodium 20 Mg Tablet) 20 mg PO BEDTIME [facility] Last Admin: 04/04/22 21:38 Dose: 20 mg Documented By: GEOVANY Rivaroxaban (Rivaroxaban 20 Mg Tablet) 20 mg PO DAILY@1500 [facility] Last Admin: 04/04/22 15:13 Dose: 20 mg Documented By: STEVE Sodium Chloride (0.9 % Sodium Chloride Flush 3 Ml Syringe) 3 ml IVFLUSH QSHIFT [facility] Last Admin: 04/05/22 08:54 Dose: 3 ml Documented By: ROSALIE Spironolactone (Spironolactone 25 Mg Tablet) 25 mg PO BID@0900,1800 [facility]; Protocol Last Admin: 04/05/22 08:36 Dose: 25 mg Documented By: ROSALIE Tiotropium [place] (Tiotropium [place] 18 Mcg Cap.W.Dev) 1 puff INHALE RDAILY [facility] Last Admin: 04/05/22 08:12 Dose: 1 puff Documented By: CHELITA Vitamin D (Cholecalciferol (Vitamin D3) 25 Mcg Tablet) 25 mcg PO DAILY [facility] Last Admin: 04/05/22 08:36 Dose: 25 mcg Documented By: ROSALIE Zinc Sulfate (Zinc Sulfate 220 Mg Capsule) 220 mg PO DAILY [facility] Last Admin: 04/05/22 08:35 Dose: 220 mg Documented By: ROSALIE Labs CBC & Chem 7: 04/05/22 06:29 04/05/22 06:29 Labs: Laboratory Results - last 24 hr 04/04/22 04/04/22 04/04/22 14:49 19:20 21:31 MCV MCH MCHC RDW Plt Count MPV Immature Gran % (Auto) Neut % (Auto) Lymph % (Auto) [place] % (Auto) Eos % (Auto) Baso % (Auto) Lymph # (Auto) [place] # (Auto) Eos # (Auto) Baso # (Auto) Abs Immat Gran (auto) Absolute Neuts (auto) Absolute Nucleated RBC Nucleated RBC % (auto) Anion Gap Estim Creat Clear Calc Estimated GFR POC Glucose 146 H 179 H 258 H Fasting Glucose Calcium Magnesium Total Bilirubin AST ALT Alkaline Phosphatase Total Protein Albumin 04/05/22 04/05/22 04/05/22 06:29 06:29 07:09 MCV 96.0 MCH 31.4 MCHC 32.7 RDW 17.2 H Plt Count 263 MPV 8.7 L Immature Gran % (Auto) 0.7 H Neut % (Auto) 76.9 H Lymph % (Auto) 11.7 L [place] % (Auto) 8.9 Eos % (Auto) 1.3 Baso % (Auto) 0.5 Lymph # (Auto) 1.1 L [place] # (Auto) 0.9 Eos # (Auto) 0.1 Baso # (Auto) 0.1 Abs Immat Gran (auto) 0.07 H Absolute Neuts (auto) 7.4 Absolute Nucleated RBC 0.000 Nucleated RBC % (auto) 0.0 Anion Gap 16 Estim Creat Clear Calc 33.2 Estimated GFR 26 POC Glucose 167 H Fasting Glucose 177 H Calcium 9.1 Magnesium 1.9 Total Bilirubin 1.0 AST 21 ALT 14 Alkaline Phosphatase 95 Total Protein 6.1 L Albumin 3.2 L 04/05/22 12:14 MCV MCH MCHC RDW Plt Count MPV Immature Gran % (Auto) Neut % (Auto) Lymph % (Auto) [place] % (Auto) Eos % (Auto) Baso % (Auto) Lymph # (Auto) [place] # (Auto) Eos # (Auto) Baso # (Auto) Abs Immat Gran (auto) Absolute Neuts (auto) Absolute Nucleated RBC Nucleated RBC % (auto) Anion Gap Estim Creat Clear Calc Estimated GFR POC Glucose 196 H Fasting Glucose Calcium Magnesium Total Bilirubin AST ALT Alkaline Phosphatase Total Protein Albumin Microbiology Microbiology Results: Microbiology 04/04/22 12:06 Blood Culture - Preliminary Blood - Venous No growth after 24 hours. 04/04/22 12:13 Blood Culture - Preliminary Blood - Venous No growth after 24 hours. Assessment and Plan (1) Acute exacerbation of congestive heart failure: Status: Acute (2) T2DM (type 2 diabetes mellitus): Status: Acute (3) CKD (chronic kidney disease): Status: Acute (4) HTN (hypertension): Status: Acute Plan 72-year-old female who has background of diastolic heart failure, pulmonary hypertension tricuspid valve regurgitation who presented for CardioMEMS device implantation today but was noted to be volume overloaded. 1. Systolic CHF exacerbation -good response to diuresis -aggressive potassium repletion -titrate O2 to maintain sats greater than or equal to 90% 2.DMII -acceptable control currently on outpatient therapies -add lispro sliding scale -adjust as indicated 3. CKD 3 -at baseline -follow renals/divalents 4.HTN -acceptable control on current therapies -adjust as indicated Full code Xarelto Will require at least 2 nights going forward for IV diuresis related to exacerbation of systolic CHF. This cannot be achieved in a lesser acute setting Quality Stroke Does the patient have a stroke diagnosis?: No VTE Prior VTE?: No VTE Risk Level:: Medical - moderate - high VTE Device Contraindication: Treatment Not Indicated VTE Drug Contraindication: N/A - Med Ordered
[2022-04-05] MEDS: Rivaroxaban 20 MG TABLET PO (15:46)
[2022-04-05 16:29] LABS: Glucose, Whole Blood 303 mg/dL (60-115)
--- NOTE | 2022-04-05 20:07 | PM.PNCARD ---
Subjective Subjective Date of Service: 04/05/22 Interval history: See examined at bedside. Feeling better. Negative balance of 2.5 L. Significantly hypokalemic. Leg redness is improving with antibiotics. Physical Exam Vital Signs: Last Vital Signs Temp 97.6 F 04/05/22 08:29 Pulse 102 H 04/05/22 09:19 Resp 22 H 04/05/22 09:19 BP 108/63 04/05/22 08:29 Pulse Ox 95 04/05/22 08:29 O2 Del Method 04/05/22 08:29 O2 Flow Rate 2 04/05/22 08:29 BMI result Body Mass Index 40.9 GENERAL APPEARANCE: Short of breath, on nasal cannula. NECK: no carotid bruit, elevated JVD. SKIN: no suspicious lesions, warm and dry. HEART: no murmurs, irregularly irregular rhythm. LUNGS: CTABL. ABDOMEN: soft, nontender. EXTREMITIES: 1-2+ edema. Leg erythema improving PERIPHERAL PULSES: equal. NEUROLOGIC: No gross deficits, AAO X 3 Objective Labs and Meds Result diagrams: 04/05/22 06:29 04/05/22 06:29 Lab results: Laboratory Results - last 24 hr 04/04/22 04/05/22 04/05/22 21:31 06:29 06:29 WBC 9.6 RBC 3.76 L Hgb 11.8 L Hct 36.1 L MCV 96.0 MCH 31.4 MCHC 32.7 RDW 17.2 H Plt Count 263 MPV 8.7 L Immature Gran % (Auto) 0.7 H Neut % (Auto) 76.9 H Lymph % (Auto) 11.7 L [place] % (Auto) 8.9 Eos % (Auto) 1.3 Baso % (Auto) 0.5 Lymph # (Auto) 1.1 L [place] # (Auto) 0.9 Eos # (Auto) 0.1 Baso # (Auto) 0.1 Abs Immat Gran (auto) 0.07 H Absolute Neuts (auto) 7.4 Absolute Nucleated RBC 0.000 Nucleated RBC % (auto) 0.0 Sodium 142 Potassium 2.6 L Chloride 91 L Carbon Dioxide 38 H Anion Gap 16 BUN 43 H Creatinine 1.88 H Estim Creat Clear Calc 33.2 Estimated GFR 26 POC Glucose 258 H Fasting Glucose 177 H Calcium 9.1 Magnesium 1.9 Total Bilirubin 1.0 AST 21 ALT 14 Alkaline Phosphatase 95 Total Protein 6.1 L Albumin 3.2 L 04/05/22 04/05/22 04/05/22 07:09 12:14 16:20 WBC RBC Hgb Hct MCV MCH MCHC RDW Plt Count MPV Immature Gran % (Auto) Neut % (Auto) Lymph % (Auto) [place] % (Auto) Eos % (Auto) Baso % (Auto) Lymph # (Auto) [place] # (Auto) Eos # (Auto) Baso # (Auto) Abs Immat Gran (auto) Absolute Neuts (auto) Absolute Nucleated RBC Nucleated RBC % (auto) Sodium Potassium Chloride Carbon Dioxide Anion Gap BUN Creatinine Estim Creat Clear Calc Estimated GFR POC Glucose 167 H 196 H 303 H Fasting Glucose Calcium Magnesium Total Bilirubin AST ALT Alkaline Phosphatase Total Protein Albumin Progress Note: A&P Assessment and plan (1) Acute exacerbation of congestive heart failure: Status: Acute Plan Pleasant 72 year female with right more than left-sided heart failure and tricuspid regurgitation presenting volume overload and congestive heart failure. She was originally brought in for short-stay surgery and placement of CardioMEMS was noted to be significantly volume overloaded and admitted. Continue IV diuretics. I will not start metolazone given her significant hypokalemia. Increasing the spironolactone to 50 mg as. Continue to replete and monitor potassium closely. Monitor magnesium closely. Thank you for allowing me to participate in the care of your patient. Please feel free to contact me if you have any questions. Time Spent With Patient Time: Total time spent is greater than 50% in coordination of care (as documented) at patient's floor/unit and/or counseling patient: Progress Note: Quality Stroke Does the patient have a stroke diagnosis?: No Procedures Date of Service Date of Service: 04/05/22
[2022-04-05 21:51] LABS: Glucose, Whole Blood 244 mg/dL (60-115)
[2022-04-05] MEDS: Spironolactone 25 MG TABLET 50 MG PO (22:00)
[2022-04-06] VITALS (7 sets, daily range): BP systolic 104–124; BP diastolic 52–77; PULSE 80–116; RESP 16–26; TEMP 37–37.1; O2SAT 91–97; BMI 38.3
[2022-04-06] MEDS: Piperacillin Sodium/Tazobactam 3.375 GM in 0.9 % Sodium Chloride 50 ML IV ×2 (04:21→11:14)
[2022-04-06 07:10] LABS: MANUAL DIFF FLAG NO
[2022-04-06 07:20] LABS: Basophils Absolute Auto 0.1 X10*3/uL (0.0-0.2); Basophils Percent Auto 0.5 % (0-2); Eosinophils Absolute Auto 0.2 X10*3/uL (0.0-0.4); Eosinophils Percent Auto 1.6 % (0-4); Hematocrit 38.2 % (37.0-47.0); Hemoglobin 12.5 g/dl (12.0-16.0); Imm Gran Abs Auto 0.08 X10*3/uL (0.00-0.03); Imm Gran Pct Auto 0.8 % (0.0-0.4); Lymphocytes Absolute Auto 1.2 X10*3/uL (1.2-4.9); Lymphocytes Percent Auto 11.5 % (20-40); Mean Corpuscular HGB Conc 32.7 g/dl (31.0-35.0); Mean Corpuscular Hemoglobin 31.4 pg (27.0-33.0); Mean Platelet Volume 8.6 fL (9.4-12.3); Monocytes Percent Auto 10.1 % (2-11); Neutrophils Absolute Auto 7.7 x10*3/uL (2.0-8.3); Neutrophils Percent Auto 75.5 % (45-73); Platelet Count 257 X10*3/uL (160-400); Red Blood Count 3.98 X10*6/uL (4.20-5.50); Red Cell Distribution Width 17.2 % (11.0-16.0); White Blood Count 10.2 X10*3/uL (4.8-10.8)
[2022-04-06 07:27] LABS: Glucose, Whole Blood 161 mg/dL (60-115)
[2022-04-06 07:54] LABS: Alanine Aminotransferase 16 U/L (0-31); Albumin Level 3.2 g/dL (3.5-5.0); Alkaline Phosphatase 97 U/L (39-117); Anion Gap 19 (12-20); Aspartate Amino Transferase 29 U/L (5-31); Bilirubin Total 1.2 mg/dL (0.0-1.0); Blood Urea Nitrogen 40 mg/dL (9-16); Calcium 9.6 mg/dL (8.4-10.2); Carbon Dioxide 38 mmol/L (22-29); Chloride 87 mmol/L (96-108); Creatinine Clr Calc Pharmacy 42.4; Estimated Glomerular Filt Rate 35; Glucose Fasting 161 mg/dL (60-99); Magnesium 1.8 mg/dL (1.6-2.6); Potassium 3.3 mmol/L (3.3-5.1); Sodium 141 mmol/L (135-145); Total Protein 6.3 g/dL (6.5-8.0)
[2022-04-06] MEDS: Insulin Lispro 100 UNIT/ML 3 ML VIAL SUBCUT ×4 (08:03→20:56)
[2022-04-06] MEDS: Docusate Sodium 100 MG CAPSULE PO (08:03)
[2022-04-06] MEDS: Insulin Glargine,Hum.rec.anlog 100 UNIT/ML 10 ML VIAL 35 UNIT SUBCUT (08:03)
[2022-04-06] MEDS: Spironolactone 25 MG TABLET 50 MG PO ×2 (08:04→18:00)
[2022-04-06] MEDS: Zinc Sulfate 220 MG CAPSULE PO (08:05)
[2022-04-06] MEDS: Cholecalciferol (Vitamin D3) 25 MCG TABLET PO (08:05)
[2022-04-06] MEDS: Gabapentin 300 MG CAPSULE PO ×3 (08:05→20:57)
[2022-04-06] MEDS: Ferrous Sulfate 324 MG TABLET.DR PO (08:05)
[2022-04-06] MEDS: Multivitamin TABLET 1 TAB PO (08:05)
[2022-04-06] MEDS: allopurinoL 100 MG TABLET PO (08:05)
[2022-04-06] MEDS: Empagliflozin 10 MG TABLET PO (08:45)
[2022-04-06] MEDS: Bumetanide 1 MG/4 ML VIAL 2 MG IVPUSH ×2 (08:46→16:49)
--- NOTE | 2022-04-06 11:11 | HO.PM.IMPN ---
Subjective Subjective Date of Service: 04/06/22 Interval History: dyspnea improved though still has it with any exertion edema improved negative 2.7L cumulatively Review of Systems Review of Systems: Yes all other systems are reviewed and are negative Physical Exam Vital Signs: Vital Signs: Last Vital Signs Temp 97.9 F 04/05/22 21:49 Pulse 93 04/06/22 09:38 Resp 16 04/06/22 09:38 BP 104/52 L 04/06/22 08:20 Pulse Ox 96 04/06/22 08:20 O2 Del Method 04/06/22 08:20 O2 Flow Rate 3 04/06/22 08:20 BMI result Body Mass Index 40.9 Gen: in no acute distress HEENT: sclera anicteric, moist mucus membranes Neck: supple Lungs: clear to auscultation bilaterally Heart: irregularly irregular Abd: soft, non-tender, non-distended Ext: 1+ BLE edema Skin: warm/well-perfused Neuro: alert and oriented x3, no focal findings Psych: appropriate affect Objective Data Active Medications Albuterol Sulfate (Albuterol Sulfate 90 Mcg 8 Gm Inhaler) 2 puff INHALE Q6H PRN PRN Reason: shortness of breath or wheezing Last Admin: 04/05/22 08:13 Dose: 2 puff Documented By: CHELITA Allopurinol (Allopurinol 100 Mg Tablet) 100 mg PO DAILY [facility] Last Admin: 04/06/22 08:05 Dose: 100 mg Documented By: JAY JAY Bumetanide (Bumetanide 1 Mg/4 Ml Vial) 2 mg IVPUSH BID@0900,1700 [facility]; Protocol Last Admin: 04/06/22 08:46 Dose: 2 mg Documented By: JAY JAY Docusate Sodium (Docusate Sodium 100 Mg Capsule) 100 mg PO DAILY [facility] Last Admin: 04/06/22 08:03 Dose: 100 mg Documented By: JAY JAY Empagliflozin (Empagliflozin 10 Mg Tablet) 10 mg PO DAILY [facility] Last Admin: 04/06/22 08:45 Dose: 10 mg Documented By: JAY JAY Ferrous Sulfate (Ferrous Sulfate 324 Mg Tablet.) 324 mg PO DAILY [facility] Last Admin: 04/06/22 08:05 Dose: 324 mg Documented By: JAY JAY Gabapentin (Gabapentin 300 Mg Capsule) 300 mg PO TID [facility] Last Admin: 04/06/22 08:05 Dose: 300 mg Documented By: JAY JAY Piperacillin Sod/Tazobactam (Sod 3.375 gm/ Sodium Chloride) 50 mls @ 100 mls/hr IV Q6H [facility] Last Infusion: 04/06/22 04:51 Dose: 0 mls/hr Documented By: DONNA Insulin Glargine (Insulin Glargine,Hum.Rec.Anlog 100 Unit/Ml 10 Ml Vial) 35 unit SUBCUT DAILY@0700 [facility] Last Admin: 04/06/22 08:03 Dose: 35 unit Documented By: JAY JAY Insulin Human Lispro (Insulin Lispro 100 Unit/Ml 3 Ml Vial) 0 unit SUBCUT QIDACHS [facility]; Protocol Last Admin: 04/06/22 08:03 Dose: 2 unit Documented By: JAY JAY Multivitamins/Vitamin C (Multivitamin Tablet) 1 tab PO DAILY [facility] Last Admin: 04/06/22 08:05 Dose: 1 tab Documented By: JAY JAY Pharmacy Consult (Consult Rx Perform Med Rec) 1 each MISCELLANE ONCE PRN PRN Reason: Consult order Pravastatin Sodium (Pravastatin Sodium 20 Mg Tablet) 20 mg PO BEDTIME [facility] Last Admin: 04/05/22 22:01 Dose: Not Given Documented By: DONNA Non-Admin Reason: Med Not Available Rivaroxaban (Rivaroxaban 20 Mg Tablet) 20 mg PO DAILY@1500 [facility] Last Admin: 04/05/22 15:46 Dose: 20 mg Documented By: ROSALIE Sodium Chloride (0.9 % Sodium Chloride Flush 3 Ml Syringe) 3 ml IVFLUSH QSHIFT [facility] Last Admin: 04/06/22 08:54 Dose: Not Given Documented By: JAY JAY Non-Admin Reason: IV Running Spironolactone (Spironolactone 25 Mg Tablet) 50 mg PO BID@0900,1800 [facility]; Protocol Last Admin: 04/06/22 08:04 Dose: 50 mg Documented By: JAY JAY Tiotropium [place] (Tiotropium [place] 18 Mcg Cap.W.Dev) 1 puff INHALE RDAILY [facility] Last Admin: 04/06/22 09:35 Dose: 1 puff Documented By: NAHID Vitamin D (Cholecalciferol (Vitamin D3) 25 Mcg Tablet) 25 mcg PO DAILY [facility] Last Admin: 04/06/22 08:05 Dose: 25 mcg Documented By: JAY JAY Zinc Sulfate (Zinc Sulfate 220 Mg Capsule) 220 mg PO DAILY [facility] Last Admin: 04/06/22 08:05 Dose: 220 mg Documented By: JAY JAY Labs CBC & Chem 7: 04/06/22 06:01 04/06/22 06:01 Labs: Laboratory Results - last 24 hr 04/05/22 04/05/22 04/05/22 12:14 16:20 21:48 MCV MCH MCHC RDW Plt Count MPV Immature Gran % (Auto) Neut % (Auto) Lymph % (Auto) [place] % (Auto) Eos % (Auto) Baso % (Auto) Lymph # (Auto) [place] # (Auto) Eos # (Auto) Baso # (Auto) Abs Immat Gran (auto) Absolute Neuts (auto) Absolute Nucleated RBC Nucleated RBC % (auto) Anion Gap Estim Creat Clear Calc Estimated GFR POC Glucose 196 H 303 H 244 H Fasting Glucose Calcium Magnesium Total Bilirubin AST ALT Alkaline Phosphatase Total Protein Albumin 04/06/22 04/06/22 04/06/22 06:01 06:01 07:04 MCV 96.0 MCH 31.4 MCHC 32.7 RDW 17.2 H Plt Count 257 MPV 8.6 L Immature Gran % (Auto) 0.8 H Neut % (Auto) 75.5 H Lymph % (Auto) 11.5 L [place] % (Auto) 10.1 Eos % (Auto) 1.6 Baso % (Auto) 0.5 Lymph # (Auto) 1.2 [place] # (Auto) 1.0 Eos # (Auto) 0.2 Baso # (Auto) 0.1 Abs Immat Gran (auto) 0.08 H Absolute Neuts (auto) 7.7 Absolute Nucleated RBC 0.000 Nucleated RBC % (auto) 0.0 Anion Gap 19 Estim Creat Clear Calc 42.4 Estimated GFR 35 POC Glucose 161 H Fasting Glucose 161 H Calcium 9.6 Magnesium 1.8 Total Bilirubin 1.2 H AST 29 ALT 16 Alkaline Phosphatase 97 Total Protein 6.3 L Albumin 3.2 L Microbiology Microbiology Results: Microbiology 04/04/22 12:06 Blood Culture - Preliminary Blood - Venous No growth after 24 hours. 04/04/22 12:13 Blood Culture - Preliminary Blood - Venous No growth after 24 hours. Assessment and Plan (1) Acute exacerbation of congestive heart failure: Status: Acute (2) T2DM (type 2 diabetes mellitus): Status: Acute (3) CKD (chronic kidney disease): Status: Acute (4) HTN (hypertension): Status: Acute Plan hospital d#3 72yo F wtih R-sided HF, diastolic HF, pHTN presented for implantation of CardioMEMS but admitted for volume overload # CHF exacerbation - continue IV bumetanide and spironolactone + empagliflozin - monitor electrolytes, I+O - reschedcule CardioMEMS # AF, persistent - continue rivaroxaban # chronic hypoxic resp failure - on home O2, 2L via NC # CKD3 - SCr at baseline; avoid nephrotoxins # COPD, not acute exac - continue tiotropium, prn albuterol # DM2 - continue empagliflozin, Lantus, Humalog # VTE ppx: rivaroxaban In my clinical judgment, the patient requires continued hospitalization for the following reasons: IV diuresis Quality Stroke Does the patient have a stroke diagnosis?: No VTE Prior VTE?: No VTE Risk Level:: Medical - moderate - high VTE Device Contraindication: Treatment Not Indicated VTE Drug Contraindication: N/A - Med Ordered
[2022-04-06 12:21] LABS: Glucose, Whole Blood 273 mg/dL (60-115)
--- NOTE | 2022-04-06 12:27 | PC.NURSE ---
Addendum entered by Jennie Peres RN 04/06/22 14:40: Afib, NSR w/ PVC's on tele monitor. Original Note: Pt alert and oriented to self, time, place, and situation. Denies pain, some breathy or winded sounds when speaking, otherwise is not SOB at rest. On 02 2LMP via NC. lung sounds dim throught, clear upper lobes, slight crackle noted to bilateral bases. Periodically has slightly productive cough. ON purewick to suction. As of this note, output via canister for urine is 1500 ML. Per pt report, bilateral lower extremity edema much better , trace noted on assessment. Skin appears to be intact, slight rednes noted to lower shins.
--- NOTE | 2022-04-06 14:19 | PM.PNCARD ---
Subjective Subjective Date of Service: 04/06/22 Interval history: Seen examined at bedside. Cellulitis improving. Feeling better. Potassium improving also with increasing the dose of spironolactone Physical Exam Vital Signs: Last Vital Signs Temp 97.9 F 04/05/22 21:49 Pulse 97 04/06/22 12:20 Resp 22 H 04/06/22 12:20 BP 119/76 04/06/22 12:20 Pulse Ox 94 04/06/22 12:20 O2 Del Method 04/06/22 12:20 O2 Flow Rate 3 04/06/22 12:20 BMI result Body Mass Index 40.9 GENERAL APPEARANCE: In no acute distress. SKIN: no suspicious lesions, warm and dry. HEART: no murmurs, irregularly irregular rhythm. Prominent V-waves on JVD. Overall improving volume status. LUNGS: CTABL. ABDOMEN: soft, nontender. EXTREMITIES: 1 + edema. Leg erythema improving PERIPHERAL PULSES: equal. NEUROLOGIC: No gross deficits, AAO X 3 Objective Labs and Meds Result diagrams: 04/06/22 06:01 04/06/22 06:01 Lab results: Laboratory Results - last 24 hr 04/05/22 04/05/22 04/06/22 16:20 21:48 06:01 WBC 10.2 RBC 3.98 L Hgb 12.5 Hct 38.2 MCV 96.0 MCH 31.4 MCHC 32.7 RDW 17.2 H Plt Count 257 MPV 8.6 L Immature Gran % (Auto) 0.8 H Neut % (Auto) 75.5 H Lymph % (Auto) 11.5 L [place] % (Auto) 10.1 Eos % (Auto) 1.6 Baso % (Auto) 0.5 Lymph # (Auto) 1.2 [place] # (Auto) 1.0 Eos # (Auto) 0.2 Baso # (Auto) 0.1 Abs Immat Gran (auto) 0.08 H Absolute Neuts (auto) 7.7 Absolute Nucleated RBC 0.000 Nucleated RBC % (auto) 0.0 Sodium Potassium Chloride Carbon Dioxide Anion Gap BUN Creatinine Estim Creat Clear Calc Estimated GFR POC Glucose 303 H 244 H Fasting Glucose Calcium Magnesium Total Bilirubin AST ALT Alkaline Phosphatase Total Protein Albumin 04/06/22 04/06/22 04/06/22 06:01 07:04 12:02 WBC RBC Hgb Hct MCV MCH MCHC RDW Plt Count MPV Immature Gran % (Auto) Neut % (Auto) Lymph % (Auto) [place] % (Auto) Eos % (Auto) Baso % (Auto) Lymph # (Auto) [place] # (Auto) Eos # (Auto) Baso # (Auto) Abs Immat Gran (auto) Absolute Neuts (auto) Absolute Nucleated RBC Nucleated RBC % (auto) Sodium 141 Potassium 3.3 D Chloride 87 L Carbon Dioxide 38 H Anion Gap 19 BUN 40 H Creatinine 1.47 H Estim Creat Clear Calc 42.4 Estimated GFR 35 POC Glucose 161 H 273 H Fasting Glucose 161 H Calcium 9.6 Magnesium 1.8 Total Bilirubin 1.2 H AST 29 ALT 16 Alkaline Phosphatase 97 Total Protein 6.3 L Albumin 3.2 L Progress Note: A&P Assessment and plan (1) Acute exacerbation of congestive heart failure: Status: Acute Plan 72-year-old female with diastolic heart failure and tricuspid valve regurgitation. Clinically improving. Continue diuretics at the same dose. Monitor electrolytes closely and replete potassium. Spironolactone dose was increased to 50 mg twice a day. Overall she is feeling better. The leg erythema has improved with antibiotics and I think there was some cellulitis present. Would favor changing her to torsemide on discharge. Start her on torsemide 60 mg twice a day. Will continue to hold metolazone for now. She has significant electrolyte issues and they were present on admission and are due to her home med regimen. Doing better tomorrow then can be changed to torsemide and potentially can go home. Thank you for allowing me to participate in the care of your patient. Please feel free to contact me if you have any questions. Time Spent With Patient Time: Total time spent is greater than 50% in coordination of care (as documented) at patient's floor/unit and/or counseling patient: Progress Note: Quality Stroke Does the patient have a stroke diagnosis?: No Procedures Date of Service Date of Service: 04/06/22
[2022-04-06] MEDS: Rivaroxaban 20 MG TABLET PO (15:53)
[2022-04-06 16:45] LABS: Glucose, Whole Blood 333 mg/dL (60-115)
[2022-04-06] MEDS: 0.9 % Sodium Chloride Flush 3 ML SYRINGE IVFLUSH ×2 (16:49→20:58)
[2022-04-06 20:05] LABS: Glucose, Whole Blood 300 mg/dL (60-115)
[2022-04-06] MEDS: Pravastatin Sodium 20 MG TABLET PO (20:57)
[2022-04-07 04:00] VITALS: BP 116/60; PULSE 96; RESP 20; TEMP 36.9; O2SAT 93
[2022-04-07 06:22] LABS: MANUAL DIFF FLAG NO
[2022-04-07 06:28] LABS: Basophils Percent Auto 0.3 % (0-2); Eosinophils Absolute Auto 0.2 X10*3/uL (0.0-0.4); Eosinophils Percent Auto 1.7 % (0-4); Hemoglobin 12.5 g/dl (12.0-16.0); Imm Gran Abs Auto 0.08 X10*3/uL (0.00-0.03); Imm Gran Pct Auto 0.7 % (0.0-0.4); Lymphocytes Absolute Auto 1.1 X10*3/uL (1.2-4.9); Lymphocytes Percent Auto 10.5 % (20-40); Mean Corpuscular HGB Conc 32.9 g/dl (31.0-35.0); Mean Corpuscular Hemoglobin 31.3 pg (27.0-33.0); Mean Platelet Volume 8.8 fL (9.4-12.3); Monocytes Absolute Auto 1.1 X10*3/uL (0.1-1.2); Neutrophils Absolute Auto 8.3 x10*3/uL (2.0-8.3); Neutrophils Percent Auto 76.8 % (45-73); Platelet Count 272 X10*3/uL (160-400); Red Cell Distribution Width 16.8 % (11.0-16.0); White Blood Count 10.9 X10*3/uL (4.8-10.8)
[2022-04-07 07:02] LABS: B Type Natriuretic Peptide 411 pg/mL (<100)
[2022-04-07 07:11] LABS: Alanine Aminotransferase 15 U/L (0-31); Albumin Level 3.2 g/dL (3.5-5.0); Alkaline Phosphatase 93 U/L (39-117); Aspartate Amino Transferase 19 U/L (5-31); Bilirubin Total 1.2 mg/dL (0.0-1.0); Blood Urea Nitrogen 48 mg/dL (9-16); Calcium 9.5 mg/dL (8.4-10.2); Creatinine Clr Calc Pharmacy 40.5; Estimated Glomerular Filt Rate 35; Glucose Fasting 256 mg/dL (60-99); Magnesium 1.9 mg/dL (1.6-2.6); Total Protein 6.2 g/dL (6.5-8.0)
[2022-04-07 07:41] LABS: Anion Gap 17 (12-20); Carbon Dioxide 41 mmol/L (22-29); Chloride 83 mmol/L (96-108); Potassium 3.2 mmol/L (3.3-5.1); Sodium 138 mmol/L (135-145)
[2022-04-07 08:00] VITALS: BP 152/76; PULSE 122; RESP 20; TEMP 36.6; O2SAT 92
[2022-04-07 08:02] VITALS: PULSE 94; RESP 18; O2SAT 95
[2022-04-07] MEDS: Insulin Glargine,Hum.rec.anlog 100 UNIT/ML 10 ML VIAL 35 UNIT SUBCUT (08:02)
[2022-04-07] MEDS: Bumetanide 1 MG/4 ML VIAL 2 MG IVPUSH (08:02)
[2022-04-07] MEDS: 0.9 % Sodium Chloride Flush 3 ML SYRINGE IVFLUSH ×3 (08:03→20:13)
[2022-04-07] MEDS: Spironolactone 25 MG TABLET 50 MG PO ×2 (08:19→16:36)
[2022-04-07] MEDS: Docusate Sodium 100 MG CAPSULE PO (08:19)
[2022-04-07] MEDS: allopurinoL 100 MG TABLET PO (08:20)
[2022-04-07] MEDS: Gabapentin 300 MG CAPSULE PO ×3 (08:21→20:13)
[2022-04-07] MEDS: Cholecalciferol (Vitamin D3) 25 MCG TABLET PO (08:21)
[2022-04-07] MEDS: Multivitamin TABLET 1 TAB PO (08:21)
[2022-04-07] MEDS: Ferrous Sulfate 324 MG TABLET.DR PO (08:21)
[2022-04-07] MEDS: Zinc Sulfate 220 MG CAPSULE PO (08:22)
[2022-04-07] MEDS: Empagliflozin 10 MG TABLET PO (08:22)
[2022-04-07 08:46] LABS: Glucose, Whole Blood 214 mg/dL (60-115)
[2022-04-07] MEDS: Insulin Lispro 100 UNIT/ML 3 ML VIAL SUBCUT ×4 (08:58→20:13)
[2022-04-07] MEDS: Torsemide 20 MG TABLET 60 MG PO ×2 (08:59→16:36)
[2022-04-07] MEDS: Potassium Chloride ER 20 MEQ TAB.ER.PRT PO (08:59)
[2022-04-07 09:25] LABS: C Reactive Protein 5.84 mg/dL (< or = 0.50)
[2022-04-07 11:05] VITALS: BP 148/69; PULSE 119; RESP 20; TEMP 36.8
--- NOTE | 2022-04-07 11:20 | PM.PNCARD ---
Subjective Subjective Date of Service: 04/07/22 Interval history: Seen and examined at bedside. feeling better. Hypokalemic. Physical Exam Vital Signs: Last Vital Signs Temp 98.2 F 04/07/22 11:05 Pulse 119 H 04/07/22 11:05 Resp 20 04/07/22 11:05 BP 148/69 H 04/07/22 11:05 Pulse Ox 92 04/07/22 08:00 O2 Del Method 04/07/22 08:00 O2 Flow Rate 2 04/07/22 08:00 BMI result Body Mass Index 38.3 Objective Labs and Meds Result diagrams: 04/07/22 05:48 04/07/22 05:49 Lab results: Laboratory Results - last 24 hr 04/06/22 04/06/22 04/06/22 12:02 16:42 19:33 WBC RBC Hgb Hct MCV MCH MCHC RDW Plt Count MPV Immature Gran % (Auto) Neut % (Auto) Lymph % (Auto) [place] % (Auto) Eos % (Auto) Baso % (Auto) Lymph # (Auto) [place] # (Auto) Eos # (Auto) Baso # (Auto) Abs Immat Gran (auto) Absolute Neuts (auto) Absolute Nucleated RBC Nucleated RBC % (auto) Sodium Potassium Chloride Carbon Dioxide Anion Gap BUN Creatinine Estim Creat Clear Calc Estimated GFR POC Glucose 273 H 333 H 300 H Random Glucose Fasting Glucose Calcium Magnesium Total Bilirubin AST ALT Alkaline Phosphatase C-Reactive Protein B-Natriuretic Peptide Total Protein Albumin 04/07/22 04/07/22 04/07/22 05:48 05:49 05:49 WBC 10.9 H RBC 4.00 L Hgb 12.5 Hct 38.0 MCV 95.0 MCH 31.3 MCHC 32.9 RDW 16.8 H Plt Count 272 MPV 8.8 L Immature Gran % (Auto) 0.7 H Neut % (Auto) 76.8 H Lymph % (Auto) 10.5 L [place] % (Auto) 10.0 Eos % (Auto) 1.7 Baso % (Auto) 0.3 Lymph # (Auto) 1.1 L [place] # (Auto) 1.1 Eos # (Auto) 0.2 Baso # (Auto) 0.0 Abs Immat Gran (auto) 0.08 H Absolute Neuts (auto) 8.3 Absolute Nucleated RBC 0.000 Nucleated RBC % (auto) 0.0 Sodium 138 Potassium 3.2 L Chloride 83 L Carbon Dioxide 41 H* Anion Gap 17 BUN 48 H Creatinine 1.48 H Estim Creat Clear Calc 40.5 Estimated GFR 35 POC Glucose Random Glucose TNP Fasting Glucose 256 H Calcium 9.5 Magnesium 1.9 Total Bilirubin 1.2 H AST 19 ALT 15 Alkaline Phosphatase 93 C-Reactive Protein 5.84 H B-Natriuretic Peptide 411 H Total Protein 6.2 L Albumin 3.2 L 04/07/22 08:43 WBC RBC Hgb Hct MCV MCH MCHC RDW Plt Count MPV Immature Gran % (Auto) Neut % (Auto) Lymph % (Auto) [place] % (Auto) Eos % (Auto) Baso % (Auto) Lymph # (Auto) [place] # (Auto) Eos # (Auto) Baso # (Auto) Abs Immat Gran (auto) Absolute Neuts (auto) Absolute Nucleated RBC Nucleated RBC % (auto) Sodium Potassium Chloride Carbon Dioxide Anion Gap BUN Creatinine Estim Creat Clear Calc Estimated GFR POC Glucose 214 H Random Glucose Fasting Glucose Calcium Magnesium Total Bilirubin AST ALT Alkaline Phosphatase C-Reactive Protein B-Natriuretic Peptide Total Protein Albumin Progress Note: A&P Assessment and plan (1) Acute exacerbation of congestive heart failure: Status: Acute Plan 72-year-old female with diastolic heart failure and tricuspid valve regurgitation. Clinically improving. Monitor electrolytes closely and replete potassium. Spironolactone dose was increased to 50 mg twice a day. Overall she is feeling better. The leg erythema has improved with antibiotics and I think there was some cellulitis present. On torsemide 60 mg twice a day. Will continue to hold metolazone for now. She has significant electrolyte issues and they were present on admission and are due to her home med regimen. Thank you for allowing me to participate in the care of your patient. Please feel free to contact me if you have any questions. Time Spent With Patient Time: Total time spent is greater than 50% in coordination of care (as documented) at patient's floor/unit and/or counseling patient: Progress Note: Quality Stroke Does the patient have a stroke diagnosis?: No Procedures Date of Service Date of Service: 04/07/22
[2022-04-07 11:34] LABS: Glucose, Whole Blood 301 mg/dL (60-115)
--- NOTE | 2022-04-07 11:40 | P.PNIM_ITS ---
Subjective Subjective Date of Service: 04/07/22 Interval History: Negative 4.7L as of now Legs are much less swollen Dyspnea improved Review of Systems Review of Systems: Yes all other systems are reviewed and are negative Physical Exam Vital Signs: Vital Signs: Last Vital Signs Temp 98.2 F 04/07/22 11:05 Pulse 119 H 04/07/22 11:05 Resp 20 04/07/22 11:05 BP 148/69 H 04/07/22 11:05 Pulse Ox 92 04/07/22 08:00 O2 Del Method 04/07/22 08:00 O2 Flow Rate 2 04/07/22 08:00 BMI result Body Mass Index 38.3 Gen: in no acute distress HEENT: sclera anicteric, moist mucus membranes Neck: supple Lungs: clear to auscultation bilaterally Heart: irregularly irregular Abd: soft, non-tender, non-distended Ext: no LE edema Skin: warm/well-perfused Neuro: alert and oriented x3, no focal findings Psych: appropriate affect ? Objective Data Active Medications Albuterol Sulfate (Albuterol Sulfate 90 Mcg 8 Gm Inhaler) 2 puff INHALE Q6H PRN PRN Reason: shortness of breath or wheezing Last Admin: 04/05/22 08:13 Dose: 2 puff Documented By: CHELITA Allopurinol (Allopurinol 100 Mg Tablet) 100 mg PO DAILY [facility] Last Admin: 04/07/22 08:20 Dose: 100 mg Documented By: SANJUANITA Docusate Sodium (Docusate Sodium 100 Mg Capsule) 100 mg PO DAILY [facility] Last Admin: 04/07/22 08:19 Dose: 100 mg Documented By: SANJUANITA Empagliflozin (Empagliflozin 10 Mg Tablet) 10 mg PO DAILY [facility] Last Admin: 04/07/22 08:22 Dose: 10 mg Documented By: SANJUANITA Ferrous Sulfate (Ferrous Sulfate 324 Mg Tablet.) 324 mg PO DAILY [facility] Last Admin: 04/07/22 08:21 Dose: 324 mg Documented By: SANJUANITA Gabapentin (Gabapentin 300 Mg Capsule) 300 mg PO TID [facility] Last Admin: 04/07/22 08:21 Dose: 300 mg Documented By: SANJUANITA Insulin Glargine (Insulin Glargine,Hum.Rec.Anlog 100 Unit/Ml 10 Ml Vial) 35 unit SUBCUT DAILY@0700 [facility] Last Admin: 04/07/22 08:02 Dose: 35 unit Documented By: SANJUANITA Insulin Human Lispro (Insulin Lispro 100 Unit/Ml 3 Ml Vial) [address] [facility]; Protocol Last Admin: 04/07/22 08:58 Dose: 4 unit Documented By: SANJUANITA Multivitamins/Vitamin C (Multivitamin Tablet) 1 tab PO DAILY [facility] Last Admin: 04/07/22 08:21 Dose: 1 tab Documented By: SANJUANITA Pharmacy Consult (Consult Rx Perform Med Rec) 1 each MISCELLANE ONCE PRN PRN Reason: Consult order Pravastatin Sodium (Pravastatin Sodium 20 Mg Tablet) 20 mg PO BEDTIME [facility] Last Admin: 04/06/22 20:57 Dose: 20 mg Documented By: KALINA Psyllium Hydrophilic Mucilloid (Psyllium Seed 3.4 Gm Powd.Pack) 3.4 gm PO DAILY [facility] Last Admin: 04/07/22 08:03 Dose: 3.4 gm Documented By: SANJUANITA Rivaroxaban (Rivaroxaban 20 Mg Tablet) 20 mg PO DAILY@1500 [facility] Last Admin: 04/06/22 15:53 Dose: 20 mg Documented By: JAY JAY Senna/Docusate Sodium (Sennosides/Docusate Sodium Tablet) 2 tab PO BID PRN PRN Reason: constipation Sodium Chloride (0.9 % Sodium Chloride Flush 3 Ml Syringe) 3 ml IVFLUSH QSHIFT [facility] Last Admin: 04/07/22 08:03 Dose: 3 ml Documented By: SANJUANITA Spironolactone (Spironolactone 25 Mg Tablet) 50 mg PO BID@0900,1800 [facility]; Protocol Last Admin: 04/07/22 08:19 Dose: 50 mg Documented By: SANJUANITA Tiotropium [place] (Tiotropium [place] 18 Mcg Cap.W.Dev) 1 puff INHALE RDAILY [facility] Last Admin: 04/07/22 08:01 Dose: 1 puff Documented By: DESMOND Torsemide (Torsemide 20 Mg Tablet) 60 mg PO BID@0800,1700 [facility]; Protocol Last Admin: 04/07/22 08:59 Dose: 60 mg Documented By: SANJUANITA Vitamin D (Cholecalciferol (Vitamin D3) 25 Mcg Tablet) 25 mcg PO DAILY [facility] Last Admin: 04/07/22 08:21 Dose: 25 mcg Documented By: SANJUANITA Zinc Sulfate (Zinc Sulfate 220 Mg Capsule) 220 mg PO DAILY [facility] Last Admin: 04/07/22 08:22 Dose: 220 mg Documented By: SANJUANITA Labs CBC & Chem 7: 04/07/22 05:48 04/07/22 05:49 Labs: Laboratory Results - last 24 hr 04/06/22 04/06/22 04/06/22 12:02 16:42 19:33 MCV MCH MCHC RDW Plt Count MPV Immature Gran % (Auto) Neut % (Auto) Lymph % (Auto) [place] % (Auto) Eos % (Auto) Baso % (Auto) Lymph # (Auto) [place] # (Auto) Eos # (Auto) Baso # (Auto) Abs Immat Gran (auto) Absolute Neuts (auto) Absolute Nucleated RBC Nucleated RBC % (auto) Anion Gap Estim Creat Clear Calc Estimated GFR POC Glucose 273 H 333 H 300 H Random Glucose Fasting Glucose Calcium Magnesium Total Bilirubin AST ALT Alkaline Phosphatase C-Reactive Protein B-Natriuretic Peptide Total Protein Albumin 04/07/22 04/07/22 04/07/22 05:48 05:49 05:49 MCV 95.0 MCH 31.3 MCHC 32.9 RDW 16.8 H Plt Count 272 MPV 8.8 L Immature Gran % (Auto) 0.7 H Neut % (Auto) 76.8 H Lymph % (Auto) 10.5 L [place] % (Auto) 10.0 Eos % (Auto) 1.7 Baso % (Auto) 0.3 Lymph # (Auto) 1.1 L [place] # (Auto) 1.1 Eos # (Auto) 0.2 Baso # (Auto) 0.0 Abs Immat Gran (auto) 0.08 H Absolute Neuts (auto) 8.3 Absolute Nucleated RBC 0.000 Nucleated RBC % (auto) 0.0 Anion Gap 17 Estim Creat Clear Calc 40.5 Estimated GFR 35 POC Glucose Random Glucose TNP Fasting Glucose 256 H Calcium 9.5 Magnesium 1.9 Total Bilirubin 1.2 H AST 19 ALT 15 Alkaline Phosphatase 93 C-Reactive Protein 5.84 H B-Natriuretic Peptide 411 H Total Protein 6.2 L Albumin 3.2 L 04/07/22 04/07/22 08:43 11:07 MCV MCH MCHC RDW Plt Count MPV Immature Gran % (Auto) Neut % (Auto) Lymph % (Auto) [place] % (Auto) Eos % (Auto) Baso % (Auto) Lymph # (Auto) [place] # (Auto) Eos # (Auto) Baso # (Auto) Abs Immat Gran (auto) Absolute Neuts (auto) Absolute Nucleated RBC Nucleated RBC % (auto) Anion Gap Estim Creat Clear Calc Estimated GFR POC Glucose 214 H 301 H Random Glucose Fasting Glucose Calcium Magnesium Total Bilirubin AST ALT Alkaline Phosphatase C-Reactive Protein B-Natriuretic Peptide Total Protein Albumin Microbiology Microbiology Results: Microbiology 04/04/22 12:06 Blood Culture - Preliminary Blood - Venous No growth after 48 hours. 04/04/22 12:13 Blood Culture - Preliminary Blood - Venous No growth after 48 hours. Assessment and Plan (1) Acute exacerbation of congestive heart failure: Status: Acute (2) T2DM (type 2 diabetes mellitus): Status: Acute (3) CKD (chronic kidney disease): Status: Acute (4) HTN (hypertension): Status: Acute Plan hospital d#4 72yo F wtih R-sided HF, diastolic HF, pHTN presented for implantation of CardioMEMS but admitted for volume overload + cellulitis # CHF exacerbation - change IV bumetanide to PO torsemide, continue spironolactone + empagliflozin - monitor electrolytes, I+O - reschedule CardioMEMS # hypoK - replete # contraction alkalosis - stop IV diuresis as above # cellulitis - stopped IV pip/roseann, change to PO amox/clav # AF, persistent - continue rivaroxaban # chronic hypoxic resp failure - on home O2, 2L via [place] # CKD3 - SCr at baseline; avoid nephrotoxins # COPD, not acute exac - continue tiotropium, prn albuterol # DM2 - continue empagliflozin, Lantus, Humalog # VTE ppx: rivaroxaban In my clinical judgment, the patient requires continued hospitalization for the following reasons: electrolyte monitoring Quality Stroke Does the patient have a stroke diagnosis?: No VTE Prior VTE?: No VTE Risk Level:: Medical - moderate - high VTE Device Contraindication: Treatment Not Indicated VTE Drug Contraindication: N/A - Med Ordered
[2022-04-07] MEDS: Amoxicillin/Potassium Clav 875 MG TABLET PO ×2 (12:02→23:31)
[2022-04-07 15:04] VITALS: BP 91/62; PULSE 78; RESP 18; TEMP 36.2; O2SAT 98
[2022-04-07] MEDS: Rivaroxaban 20 MG TABLET PO (15:56)
[2022-04-07 16:29] LABS: Glucose, Whole Blood 320 mg/dL (60-115)
[2022-04-07 19:21] VITALS: BP 114/56; PULSE 119; RESP 18; TEMP 36.9; O2SAT 92
[2022-04-07 19:59] LABS: Glucose, Whole Blood 294 mg/dL (60-115)
[2022-04-07] MEDS: Pravastatin Sodium 20 MG TABLET PO (20:13)
[2022-04-08] VITALS (9 sets, daily range): BP systolic 69–134; BP diastolic 50–59; PULSE 84–99; RESP 16–19; TEMP 36.2–36.8; O2SAT 92–96
--- NOTE | 2022-04-08 | ECG_ITS ---
Test Reason : CHF Blood Pressure : / mmHG Vent. Rate : 102 BPM Atrial Rate : 000 BPM P-R Int : 000 ms QRS Dur : 092 ms QT Int : 370 ms P-R-T Axes : 000 006 012 degrees QTc Int : 482 ms Atrial fibrillation with rapid ventricular response with premature ventricular or aberrantly conducted complexes Low voltage QRS Abnormal ECG When compared with ECG of 04-APR-2022 10:29, QRS duration has increased Criteria for Septal infarct are no longer Present Nonspecific T wave abnormality no longer evident in Anterolateral leads Referred By: Tina Colin Electronically Signed By:HARSHAD BARNETT
[2022-04-08 06:42] LABS: VBG Base Excess 25.8 mmol/L; VBG HCO3 53 mmol/L (22-26); VBG pCO2 66 mmHg; VBG pH 7.51 (7.32-7.43); VBG pO2 39 mmHg
[2022-04-08 06:43] LABS: Venous Blood Gas Refer to POC result
[2022-04-08 07:41] LABS: Anion Gap 16 (12-20); Blood Urea Nitrogen 51 mg/dL (9-16); Calcium 9.1 mg/dL (8.4-10.2); Carbon Dioxide 42 mmol/L (22-29); Chloride 83 mmol/L (96-108); Creatinine Clr Calc Pharmacy 41.1; Estimated Glomerular Filt Rate 35; Glucose Random 218 mg/dL (60-115); Magnesium 1.8 mg/dL (1.6-2.6); Potassium 3.3 mmol/L (3.3-5.1); Sodium 138 mmol/L (135-145)
[2022-04-08 08:38] LABS: Glucose, Whole Blood 194 mg/dL (60-115)
[2022-04-08] MEDS: Insulin Lispro 100 UNIT/ML 3 ML VIAL SUBCUT ×4 (09:19→21:22)
[2022-04-08] MEDS: Insulin Glargine,Hum.rec.anlog 100 UNIT/ML 10 ML VIAL 35 UNIT SUBCUT (09:19)
[2022-04-08] MEDS: Gabapentin 300 MG CAPSULE PO ×3 (09:20→21:18)
[2022-04-08] MEDS: Docusate Sodium 100 MG CAPSULE PO (09:20)
[2022-04-08] MEDS: 0.9 % Sodium Chloride Flush 3 ML SYRINGE IVFLUSH ×3 (09:20→21:24)
[2022-04-08] MEDS: Zinc Sulfate 220 MG CAPSULE PO (09:20)
[2022-04-08] MEDS: Ferrous Sulfate 324 MG TABLET.DR PO (09:20)
[2022-04-08] MEDS: Empagliflozin 10 MG TABLET PO (09:20)
[2022-04-08] MEDS: Multivitamin TABLET 1 TAB PO (09:20)
[2022-04-08] MEDS: allopurinoL 100 MG TABLET PO (09:21)
[2022-04-08] MEDS: Cholecalciferol (Vitamin D3) 25 MCG TABLET PO (09:21)
--- NOTE | 2022-04-08 09:25 | P.CDIC_ITS ---
CDI Concurrent Query Documentation Clarification: PHYSICIAN'S DOCUMENTATION REQUEST Date of Query: 04/08/22925 Patient Name: Ragini Little Admit Date: 04/04/22 Dear Doctor, A review of the medical record indicates additional documentation may be needed. Please review below and update the documentation accordingly. Clinical Indicators: Is there a diagnosis that correlates with the findings below: Risk Factors/Clinical Indicators/Treatments POCs: 04/07 320 04/08 Based on the above, could you clarify in the Progress Notes the appropriate diagnosis, if significant, that supports the above abnormalities and additional evaluation, monitoring, and/or treatment rendered: * Hyperglycemia * Other (please specify) * Unable to determine Use of terms such as suspected, likely, concern for, or probable (associated with a specific diagnosis that is being evaluated, monitored, or treated as if it exists) are acceptable and can be coded in the inpatient setting, when documented at the time of discharge. Thank you, Teodora Shah MS, RN, CCRN Extension: [phone] Please use your independent medical judgment in providing your response. THIS QUERY IS PART OF THE PERMANENT MEDICAL RECORD Provider Response: Other Other Diagnosis: DM hyperglycem
--- NOTE | 2022-04-08 09:31 | P.CDIC_ITS ---
CDI Concurrent Query Documentation Clarification: PHYSICIAN'S DOCUMENTATION REQUEST Date of Query: 04/08/22 0933 Patient Name: Ragini Little Admit Date: 04/04/22 Dear Doctor, A review of the medical record indicates additional documentation may be needed. Please review below and update the documentation accordingly. Clinical Indicators: Documentation includes the diagnosis of cellulitis on 04/08/22. Additional clinical indicators from the record include: Risk Factors/Clinical Indicators/Treatments Per provider note on 04/08: +Cellulitis - stopped IV pip/roseann, change to PO amox/clav Based on the above, could you clarify in the Progress Notes the appropriate diagnosis, if significant, that supports the above abnormalities and additional evaluation, monitoring, and/or treatment rendered: * Cellulitis of (please specify location) * Other (please specify) * Unable to determine Use of terms such as suspected, likely, concern for, or probable (associated with a specific diagnosis that is being evaluated, monitored, or treated as if it exists) are acceptable and can be coded in the inpatient setting, when documented at the time of discharge. Thank you, Teodora Shah MS, RN, CCRN Extension: [phone] Please use your independent medical judgment in providing your response. THIS QUERY IS PART OF THE PERMANENT MEDICAL RECORD Provider Response: Other Other Diagnosis: cellulitis of legs
[2022-04-08] MEDS: acetaZOLAMIDE 250 MG TABLET PO ×2 (09:39→21:18)
--- NOTE | 2022-04-08 10:09 | PM.PNCARD ---
Subjective Subjective Date of Service: 04/08/22 Principal diagnosis: decompensated heart failure Interval history: patient noted to have low blood pressures today. Complains of some lightheadedness. No significant shortness of breath. Has diuresed about 7.2 L since admission. Her home diuretic regimen was changed her bumetanide to torsemide which is fine. Diamox is added. She is on Jardiance. Her spironolactone was rapidly increased to 50 mg b.i.d.. She denies any palpitations. Noted her atrial fibrillation rate to be slightly elevated. Her creatinine has improved marginally Review of Systems Constitutional: Reports no additional constitutional complaints Cardiovascular: Denies chest pain, Denies leg edema, Reports lightheadedness, Denies Loss of Consciousness, Denies palpitations and Reports dyspnea on exertion Respiratory: Reports dyspnea on exertion Gastrointestinal: Reports no additional gastrointestinal complaints Musculoskeletal: Reports no additional musculoskeletal complaints Reports system reviewed and no additional complaints, except as documented Endocrine: Denies palpitations Physical Exam Vital Signs: Last Vital Signs Temp 98.2 F 04/08/22 08:00 Pulse 93 04/08/22 08:00 Resp 16 04/08/22 08:00 BP 88/50 L 04/08/22 08:00 Pulse Ox 94 04/08/22 08:00 O2 Del Method 04/08/22 08:00 O2 Flow Rate 2 04/08/22 08:00 BMI result Body Mass Index 38.3 Const General: cooperative, comfortable, no acute distress, alert and awake Nutritional Appearance: obese morbidly obese Orientation/consciousness: patient oriented x3 Neck Neck: Yes trachea midline, Yes supple and Yes no JVD Resp Effort & Inspection: normal respiratory effort Auscultation: clear to auscultation bilaterally and diminished lung sounds Cardio Rate: tachycardic Rhythm: abnormal rhythm irregularly irregular Heart sounds: S1 normal heart sound present, S2 normal heart sound present, no click, no gallops, no murmurs and no rubs GI Inspection: Yes obesity Auscultation: normal bowel sounds Neuro General: patient oriented x3 and no focal motor deficits Extrem General: No clubbing, No cyanosis and Yes edema Objective Labs and Meds Result diagrams: 04/07/22 05:48 04/08/22 06:32 Lab results: Laboratory Results - last 24 hr 04/07/22 04/07/22 04/07/22 11:07 16:24 19:42 VBG pH VBG pCO2 VBG pO2 VBG HCO3 VBG O2 Saturation VBG Base Excess Sodium Potassium Chloride Carbon Dioxide Anion Gap BUN Creatinine Estim Creat Clear Calc Estimated GFR POC Glucose 301 H 320 H 294 H Random Glucose Calcium Magnesium 04/08/22 04/08/22 04/08/22 06:32 06:37 08:32 VBG pH 7.51 H VBG pCO2 66 VBG pO2 39 VBG HCO3 53 H VBG O2 Saturation 57.0 VBG Base Excess 25.8 Sodium 138 Potassium 3.3 Chloride 83 L Carbon Dioxide 42 H* Anion Gap 16 BUN 51 H Creatinine 1.46 H Estim Creat Clear Calc 41.1 Estimated GFR 35 POC Glucose 194 H Random Glucose 218 H Calcium 9.1 Magnesium 1.8 Progress Note: A&P Assessment and plan (1) CHF exacerbation: Status: Acute Assessment and Plan: patient admitted with CHF exacerbation. Despite multiple discussion hospitalization the past she still does not understand management of fluid overload at home. I am okay with her currently being switched from bumetanide to torsemide as an alternative diuretic for better hopefully GI absorption. However he still will need p.r.n. metolazone at home if she has sudden weight gain on current torsemide dose. This was discussed with her. Agree with acetazolamide therapy as well. Continue Jardiance. I think a low blood pressures most likely due to rapid up titration of spironolactone. Will reduce spironolactone to 25 mg b.i.d.. Continue p.o. torsemide and hold morning spironolactone and switch to 25 mg b.i.d. starting tonight. Her overall prognosis is guarded. She was scheduled for CardioMEMS device his, but ended up being hospitalized due to fluid overload. This should be schedule as soon as possible as outpatient To help with management of heart failure and avoid hospitalization. She understands and is agreeable for the same. Continue monitor renal function and electrolytes closely. She should get standing dose of potassium chloride 40 meq b.i.d.. (2) Chronic atrial fibrillation: Status: Acute Assessment and Plan: chronic atrial fibrillation with elevated heart rate most likely due to lower blood pressure. Will continue to monitor by cardiac telemetry. Hold off on any rate lowering medication, may require digoxin therapy given her low blood pressure. Will monitor. Continue full oral anticoagulation with Xarelto. This should be renally dosed directed. Will continue to follow with you Time Spent With Patient Time: Total time spent is greater than 50% in coordination of care (as documented) at patient's floor/unit and/or counseling patient: Progress Note: Quality Stroke Does the patient have a stroke diagnosis?: No Procedures Date of Service Date of Service: 04/08/22
[2022-04-08] MEDS: Torsemide 20 MG TABLET 60 MG PO ×2 (10:28→17:19)
[2022-04-08] MEDS: Potassium Chloride Packet 20 MEQ PACKET 40 MEQ PO ×2 (10:29→21:18)
--- NOTE | 2022-04-08 11:14 | P.PNIM_ITS ---
Subjective Subjective Date of Service: 04/08/22 Interval History: Chronic dyspnea from COPD. On home BiPAP. AF 120s->100s this AM. Edema improved. Review of Systems Review of Systems: Yes all other systems are reviewed and are negative Physical Exam Vital Signs: Vital Signs: Last Vital Signs Temp 98.2 F 04/08/22 08:00 Pulse 93 04/08/22 08:00 Resp 16 04/08/22 08:00 BP 88/50 L 04/08/22 08:00 Pulse Ox 94 04/08/22 08:00 O2 Del Method 04/08/22 08:00 O2 Flow Rate 2 04/08/22 08:00 BMI result Body Mass Index 38.3 Gen: in no acute distress HEENT: sclera anicteric, moist mucus membranes Neck: supple Lungs: clear to auscultation bilaterally Heart: irregularly irregular Abd: soft, non-tender, non-distended Ext: no LE edema Skin: warm/well-perfused Neuro: alert and oriented x3, no focal findings Psych: appropriate affect ? Objective Data Active Medications Acetazolamide (Acetazolamide 250 Mg Tablet) 250 mg PO BID [facility] Stop: 04/08/22 21:01 Last Admin: 04/08/22 09:39 Dose: 250 mg Documented By: LATIA Albuterol Sulfate (Albuterol Sulfate 90 Mcg 8 Gm Inhaler) 2 puff INHALE Q6H PRN PRN Reason: shortness of breath or wheezing Last Admin: 04/05/22 08:13 Dose: 2 puff Documented By: CHELITA Allopurinol (Allopurinol 100 Mg Tablet) 100 mg PO DAILY [facility] Last Admin: 04/08/22 09:21 Dose: 100 mg Documented By: LATIA Amoxicillin/Clavulanate Potassium (Amoxicillin/Potassium Clav 875 Mg Tablet) 875 mg PO Q12H [facility] Last Admin: 04/07/22 23:31 Dose: 875 mg Documented By: LON Docusate Sodium (Docusate Sodium 100 Mg Capsule) 100 mg PO DAILY [facility] Last Admin: 04/08/22 09:20 Dose: 100 mg Documented By: LATIA Empagliflozin (Empagliflozin 10 Mg Tablet) 10 mg PO DAILY [facility] Last Admin: 04/08/22 09:20 Dose: 10 mg Documented By: LATIA Ferrous Sulfate (Ferrous Sulfate 324 Mg Tablet.) 324 mg PO DAILY [facility] Last Admin: 04/08/22 09:20 Dose: 324 mg Documented By: LATIA Gabapentin (Gabapentin 300 Mg Capsule) 300 mg PO TID [facility] Last Admin: 04/08/22 09:20 Dose: 300 mg Documented By: LATIA Insulin Glargine (Insulin Glargine,Hum.Rec.Anlog 100 Unit/Ml 10 Ml Vial) 35 unit SUBCUT DAILY@0700 [facility] Last Admin: 04/08/22 09:19 Dose: 35 unit Documented By: LATIA Insulin Human Lispro (Insulin Lispro 100 Unit/Ml 3 Ml Vial) 0 unit SUBCUT QIDACHS [facility]; Protocol Last Admin: 04/08/22 09:19 Dose: 2 unit Documented By: LATIA Multivitamins/Vitamin C (Multivitamin Tablet) 1 tab PO DAILY [facility] Last Admin: 04/08/22 09:20 Dose: 1 tab Documented By: LATIA Pharmacy Consult (Consult Rx Perform Med Rec) 1 each MISCELLANE ONCE PRN PRN Reason: Consult order Potassium Chloride (Potassium Chloride Packet 20 Meq Packet) 40 meq PO BID [facility] Last Admin: 04/08/22 10:29 Dose: 40 meq Documented By: LATIA Pravastatin Sodium (Pravastatin Sodium 20 Mg Tablet) 20 mg PO BEDTIME [facility] Last Admin: 04/07/22 20:13 Dose: 20 mg Documented By: LON Psyllium Hydrophilic Mucilloid (Psyllium Seed 3.4 Gm Powd.Pack) 3.4 gm PO DAILY [facility] Last Admin: 04/08/22 09:31 Dose: 3.4 gm Documented By: LATIA Rivaroxaban (Rivaroxaban 20 Mg Tablet) 20 mg PO DAILY@1500 [facility] Last Admin: 04/07/22 15:56 Dose: 20 mg Documented By: SANJUANITA Senna/Docusate Sodium (Sennosides/Docusate Sodium Tablet) 2 tab PO BID PRN PRN Reason: constipation Sodium Chloride (0.9 % Sodium Chloride Flush 3 Ml Syringe) 3 ml IVFLUSH QSHIFT [facility] Last Admin: 04/08/22 09:20 Dose: 3 ml Documented By: LATIA Spironolactone (Spironolactone 25 Mg Tablet) 25 mg PO BID@0900,1800 [facility]; Protocol Tiotropium Mcdowell (Tiotropium Mcdowell 18 Mcg Cap.W.Dev) 1 puff INHALE RDAILY [facility] Last Admin: 04/08/22 07:54 Dose: Not Given Documented By: KAYLAH Non-Admin Reason: med not avail Torsemide (Torsemide 20 Mg Tablet) 60 mg PO BID@0800,1700 [facility]; Protocol Last Admin: 04/08/22 10:28 Dose: 60 mg Documented By: LATIA Vitamin D (Cholecalciferol (Vitamin D3) 25 Mcg Tablet) 25 mcg PO DAILY [facility] Last Admin: 04/08/22 09:21 Dose: 25 mcg Documented By: LATIA Zinc Sulfate (Zinc Sulfate 220 Mg Capsule) 220 mg PO DAILY [facility] Last Admin: 04/08/22 09:20 Dose: 220 mg Documented By: LATIA Labs CBC & Chem 7: 04/07/22 05:48 04/08/22 06:32 Labs: Laboratory Results - last 24 hr 04/07/22 04/07/22 04/07/22 11:07 16:24 19:42 VBG pH VBG pCO2 VBG pO2 VBG HCO3 VBG O2 Saturation VBG Base Excess Anion Gap Estim Creat Clear Calc Estimated GFR POC Glucose 301 H 320 H 294 H Random Glucose Calcium Magnesium 04/08/22 04/08/22 04/08/22 06:32 06:37 08:32 VBG pH 7.51 H VBG pCO2 66 VBG pO2 39 VBG HCO3 53 H VBG O2 Saturation 57.0 VBG Base Excess 25.8 Anion Gap 16 Estim Creat Clear Calc 41.1 Estimated GFR 35 POC Glucose 194 H Random Glucose 218 H Calcium 9.1 Magnesium 1.8 Assessment and Plan (1) Acute exacerbation of congestive heart failure: Status: Acute (2) T2DM (type 2 diabetes mellitus): Status: Acute (3) CKD (chronic kidney disease): Status: Acute (4) HTN (hypertension): Status: Acute Plan hospital d#4 72yo F wtih R-sided HF, diastolic HF, pHTN presented for implantation of CardioM EMS but admitted for volume overload + cellulitis # CHF exacerbation - changed IV bumetanide to PO torsemide, continue spironolactone (reduce dose from 50 to 25 mg bid)+ empagliflozin; 5 mg metolazone prn at home for weight gain - monitor electrolytes, I+O - reschedule CardioMEMS # hypoK - repleted; start maintenance therapy # metabolic alkalosis - stop IV diuresis as above, give 2 doses acetazolamide, place back on BiPAP during day # cellulitis of legs - stopped IV pip/roseann, changed to PO amox/clav # AF, persistent - continue rivaroxaban- renally dose (15 mg daily) - may require digoxin for rate control # chronic hypoxic resp failure - on home O2, 2L via NC # CKD3 - SCr at baseline; avoid nephrotoxins # COPD, not acute exac - continue tiotropium, prn albuterol # DM2 with hyperglycemia - continue empagliflozin, Lantus, Humalog # VTE ppx: rivaroxaban In my clinical judgment, the patient requires continued hospitalization for the following reasons: electrolyte monitoring Quality Stroke Does the patient have a stroke diagnosis?: No VTE Prior VTE?: No VTE Risk Level:: Medical - moderate - high VTE Device Contraindication: Treatment Not Indicated VTE Drug Contraindication: N/A - Med Ordered
[2022-04-08 11:33] LABS: Glucose, Whole Blood 330 mg/dL (60-115)
[2022-04-08] MEDS: Amoxicillin/Potassium Clav 875 MG TABLET PO ×2 (12:28→23:38)
[2022-04-08] MEDS: Rivaroxaban 15 MG TABLET PO (14:51)
[2022-04-08 16:26] LABS: Glucose, Whole Blood 253 mg/dL (60-115)
[2022-04-08] MEDS: Spironolactone 25 MG TABLET PO (17:19)
[2022-04-08] MEDS: Pravastatin Sodium 20 MG TABLET PO (21:17)
[2022-04-08 21:21] LABS: Glucose, Whole Blood 290 mg/dL (60-115)
[2022-04-09] VITALS (10 sets, daily range): BP systolic 85–130; BP diastolic 47–72; PULSE 84–109; RESP 16–20; TEMP 36.3–37; O2SAT 92–97
[2022-04-09 06:33] LABS: VBG Base Excess 13.4 mmol/L; VBG HCO3 38 mmol/L (22-26); VBG pCO2 47 mmHg; VBG pH 7.51 (7.32-7.43); VBG pO2 61 mmHg
[2022-04-09 06:33] LABS: Venous Blood Gas Refer to POC result
[2022-04-09 06:48] LABS: Anion Gap 17 (12-20); Blood Urea Nitrogen 55 mg/dL (9-16); Carbon Dioxide 35 mmol/L (22-29); Chloride 83 mmol/L (96-108); Creatinine Clr Calc Pharmacy 41.4; Estimated Glomerular Filt Rate 35; Glucose Random 248 mg/dL (60-115); Potassium 3.8 mmol/L (3.3-5.1); Sodium 131 mmol/L (135-145)
[2022-04-09 07:16] LABS: Glucose, Whole Blood 207 mg/dL (60-115)
--- NOTE | 2022-04-09 07:26 | MHC.PIE ---
LOW BP - while reviewing vital signs at approx 0255, this RN noted low BP 69/56 from midnight vitals (not reported to this RN by [employer]IC). Had been in with patient after midnight to assess patient & assess bipap tolerance, patient was asymptomatic during that time. This RN immediately went to assess patient at 3am, took vitals. Initially BP 85 systolic. Mental status still at baseline.?Dr Pepe made aware of issue with BP & patient mental status. Hadn't received any BP meds during the evening med pass. Dr Pepe ordered to take BP while supine, which was done & BP improved to 99/55. Patient Tolerated bipap from approx midnight to almost 6am. MD ordered to hold any morning BP meds and ask for the day shift RN to question any further medications that would effect the patient's BP. Reported BP med request to Ruth ANDRADE.
[2022-04-09] MEDS: Insulin Lispro 100 UNIT/ML 3 ML VIAL SUBCUT ×4 (08:30→22:34)
[2022-04-09] MEDS: Insulin Glargine,Hum.rec.anlog 100 UNIT/ML 10 ML VIAL 35 UNIT SUBCUT (08:31)
[2022-04-09] MEDS: Cholecalciferol (Vitamin D3) 25 MCG TABLET PO (08:32)
[2022-04-09] MEDS: Zinc Sulfate 220 MG CAPSULE PO (08:32)
[2022-04-09] MEDS: Multivitamin TABLET 1 TAB PO (08:32)
[2022-04-09] MEDS: Potassium Chloride Packet 20 MEQ PACKET 40 MEQ PO ×2 (08:32→22:36)
[2022-04-09] MEDS: Gabapentin 300 MG CAPSULE PO ×3 (08:32→22:34)
[2022-04-09] MEDS: Docusate Sodium 100 MG CAPSULE PO (08:32)
[2022-04-09] MEDS: Empagliflozin 10 MG TABLET PO (08:33)
[2022-04-09] MEDS: allopurinoL 100 MG TABLET PO (08:33)
[2022-04-09] MEDS: Ferrous Sulfate 324 MG TABLET.DR PO (08:33)
[2022-04-09] MEDS: 0.9 % Sodium Chloride Flush 3 ML SYRINGE IVFLUSH (08:39)
--- NOTE | 2022-04-09 10:58 | HO.PM.IMPN ---
Subjective Subjective Date of Service: 04/09/22 Interval History: BP low overnight, dropped to 69/56 a little lightheaded used BiPAP overnight no leg edema chronic dyspnea Review of Systems Review of Systems: Yes all other systems are reviewed and are negative Physical Exam Vital Signs: Vital Signs: Last Vital Signs Temp 98.6 F 04/09/22 07:08 Pulse 93 04/09/22 08:06 Resp 18 04/09/22 08:06 BP 90/57 L 04/09/22 07:08 Pulse Ox 96 04/09/22 07:08 O2 Del Method 04/09/22 07:08 O2 Flow Rate 2 04/09/22 07:08 FiO2 28 04/09/22 03:35 BMI result Body Mass Index 38.3 Gen: in no acute distress HEENT: sclera anicteric, moist mucus membranes Neck: supple Lungs: clear to auscultation bilaterally Heart: irregularly irregular Abd: soft, non-tender, non-distended Ext: no LE edema Skin: warm/well-perfused Neuro: alert and oriented x3, no focal findings Psych: appropriate affect Objective Data Active Medications Albuterol Sulfate (Albuterol Sulfate 90 Mcg 8 Gm Inhaler) 2 puff INHALE Q6H PRN PRN Reason: shortness of breath or wheezing Last Admin: 04/05/22 08:13 Dose: 2 puff Documented By: CHELITA Allopurinol (Allopurinol 100 Mg Tablet) 100 mg PO DAILY [facility] Last Admin: 04/09/22 08:33 Dose: 100 mg Documented By: LATIA Amoxicillin/Clavulanate Potassium (Amoxicillin/Potassium Clav 875 Mg Tablet) 875 mg PO Q12H [facility] Last Admin: 04/08/22 23:38 Dose: 875 mg Documented By: JAKUB Docusate Sodium (Docusate Sodium 100 Mg Capsule) 100 mg PO DAILY [facility] Last Admin: 04/09/22 08:32 Dose: 100 mg Documented By: LATIA Empagliflozin (Empagliflozin 10 Mg Tablet) 10 mg PO DAILY [facility] Last Admin: 04/09/22 08:33 Dose: 10 mg Documented By: LATIA Ferrous Sulfate (Ferrous Sulfate 324 Mg Tablet.) 324 mg PO DAILY [facility] Last Admin: 04/09/22 08:33 Dose: 324 mg Documented By: LATIA Gabapentin (Gabapentin 300 Mg Capsule) 300 mg PO TID [facility] Last Admin: 04/09/22 08:32 Dose: 300 mg Documented By: LATIA Sodium Chloride (Ns) 500 mls @ 50 mls/hr IVCONT .Q10H [facility] Insulin Glargine (Insulin Glargine,Hum.Rec.Anlog 100 Unit/Ml 10 Ml Vial) 35 unit SUBCUT DAILY@0700 [facility] Last Admin: 04/09/22 08:31 Dose: 35 unit Documented By: LATIA Insulin Human Lispro (Insulin Lispro 100 Unit/Ml 3 Ml Vial) 0 unit SUBCUT QIDACHS [facility]; Protocol Last Admin: 04/09/22 08:30 Dose: 4 unit Documented By: LATIA Multivitamins/Vitamin C (Multivitamin Tablet) 1 tab PO DAILY [facility] Last Admin: 04/09/22 08:32 Dose: 1 tab Documented By: LATIA Pharmacy Consult (Consult Rx Perform Med Rec) 1 each MISCELLANE ONCE PRN PRN Reason: Consult order Potassium Chloride (Potassium Chloride Packet 20 Meq Packet) 40 meq PO BID [facility] Last Admin: 04/09/22 08:32 Dose: 40 meq Documented By: LATIA Pravastatin Sodium (Pravastatin Sodium 20 Mg Tablet) 20 mg PO BEDTIME [facility] Last Admin: 04/08/22 21:17 Dose: 20 mg Documented By: JAKUB Psyllium Hydrophilic Mucilloid (Psyllium Seed 3.4 Gm Powd.Pack) 3.4 gm PO DAILY [facility] Last Admin: 04/09/22 08:32 Dose: 3.4 gm Documented By: LATIA Rivaroxaban (Rivaroxaban 15 Mg Tablet) 15 mg PO DAILY@1500 [facility] Last Admin: 04/08/22 14:51 Dose: 15 mg Documented By: LATIA Senna/Docusate Sodium (Sennosides/Docusate Sodium Tablet) 2 tab PO BID PRN PRN Reason: constipation Sodium Chloride (0.9 % Sodium Chloride Flush 3 Ml Syringe) 3 ml IVFLUSH QSHIFT [facility] Last Admin: 04/09/22 08:39 Dose: 3 ml Documented By: LATIA Spironolactone (Spironolactone 25 Mg Tablet) 25 mg PO BID@0900,1800 [facility]; Protocol Last Admin: 04/09/22 08:46 Dose: Not Given Documented By: LATIA Non-Admin Reason: Physician Held Med Tiotropium Joes (Tiotropium Joes 18 Mcg Cap.W.Dev) 1 puff INHALE RDAILY [facility] Last Admin: 04/09/22 08:03 Dose: 1 puff Documented By: DESMOND Torsemide (Torsemide 20 Mg Tablet) 60 mg PO BID@0800,1700 [facility]; Protocol Last Admin: 04/09/22 08:46 Dose: Not Given Documented By: LATIA Non-Admin Reason: Physician Held Med Vitamin D (Cholecalciferol (Vitamin D3) 25 Mcg Tablet) 25 mcg PO DAILY [facility] Last Admin: 04/09/22 08:32 Dose: 25 mcg Documented By: LATIA Zinc Sulfate (Zinc Sulfate 220 Mg Capsule) 220 mg PO DAILY [facility] Last Admin: 04/09/22 08:32 Dose: 220 mg Documented By: LATIA Labs CBC & Chem 7: 04/07/22 05:48 04/09/22 06:17 Labs: Laboratory Results - last 24 hr 04/08/22 04/08/22 04/08/22 11:25 16:21 21:15 VBG pH VBG pCO2 VBG pO2 VBG HCO3 VBG O2 Saturation VBG Base Excess Anion Gap Estim Creat Clear Calc Estimated GFR POC Glucose 330 H 253 H 290 H Random Glucose Calcium 04/09/22 04/09/22 04/09/22 06:17 06:27 07:11 VBG pH 7.51 H VBG pCO2 47 VBG pO2 61 VBG HCO3 38 H VBG O2 Saturation 90.0 VBG Base Excess 13.4 Anion Gap 17 Estim Creat Clear Calc 41.4 Estimated GFR 35 POC Glucose 207 H Random Glucose 248 H Calcium 9.0 Assessment and Plan (1) Acute exacerbation of congestive heart failure: Status: Acute (2) T2DM (type 2 diabetes mellitus): Status: Acute (3) CKD (chronic kidney disease): Status: Acute (4) HTN (hypertension): Status: Acute Plan hospital d#5 72yo F wtih R-sided HF, diastolic HF, pHTN presented for implantation of CardioMEMS but admitted for volume overload + cellulitis now hypotensive # hypotension # exacerbation of HFpEF - pt has very narrow therapeutic window between volume overload and volume depletion. will hold diuretic [torsemide + spironolactone] for now and give 500 mL NS. will probably restart torsemide at lower dose tomorrow. continue empaglifozin. pt also has 5 mg metolazone prn at home for weight gain and will need the CardioMEMS rescheduled # hypoK - repleted; on maintenance therapy # metabolic alkalosis - due to diuresis + hypercapnea; improved after acetazolamide # cellulitis of legs - stopped IV pip/roseann, changed to PO amox/clav # AF, persistent - continue rivaroxaban- changed to renally dose (15 mg daily) - may require digoxin for rate control # chronic hypoxic + hypercapneic resp failure - on home O2, 2L via [place] - continue BiPAP at night and with all naps # CKD3 - SCr at baseline; avoid nephrotoxins # COPD, not acute exac - continue tiotropium, prn albuterol # DM2 with hyperglycemia - continue empagliflozin, Lantus, Humalog # VTE ppx: rivaroxaban In my clinical judgment, the patient requires continued hospitalization for the following reasons: BP monitoring Quality Stroke Does the patient have a stroke diagnosis?: No VTE Prior VTE?: No VTE Risk Level:: Medical - moderate - high VTE Device Contraindication: Treatment Not Indicated VTE Drug Contraindication: N/A - Med Ordered
[2022-04-09 11:28] LABS: Glucose, Whole Blood 295 mg/dL (60-115)
[2022-04-09] MEDS: Amoxicillin/Potassium Clav 875 MG TABLET PO ×2 (12:08→22:34)
--- NOTE | 2022-04-09 12:24 | P.PNCA_ITS ---
Subjective Subjective Date of Service: 04/09/22 <MOHIT Linton - Last Filed: 04/09/22 12:38> 04/09/22 <Richi Duran MD - Last Filed: 04/09/22 15:28> Principal diagnosis: decompensated heart failure <MOHIT Linton - Last Filed: 04/09/22 12:38> Interval history: Seen at 1000. Today she reports issues with low BPs which is causing her frustration. She reports breathing is comfortable at rest. She feels it has improved since admit. She did wear Bipap during the night. At home she wears mask during sleep as well. No chest pains, palpitations, dizziness. Leg edema much improved. <MOHIT Linton - Last Filed: 04/09/22 12:38> Review of Systems Review of Systems as above <MOHIT Linton - Last Filed: 04/09/22 12:38> Physical Exam Vital Signs: Last Vital Signs Temp 97.5 F 04/09/22 11:26 Pulse 89 04/09/22 11:26 Resp 18 04/09/22 11:26 BP 88/47 L 04/09/22 11:26 Pulse Ox 95 04/09/22 11:26 O2 Del Method 04/09/22 11:26 O2 Flow Rate 2 04/09/22 11:26 FiO2 28 04/09/22 03:35 BMI result Body Mass Index 38.3 <MOHIT Linton - Last Filed: 04/09/22 12:38> Const General: cooperative, comfortable and no acute distress <MOHIT Linton - Last Filed: 04/09/22 12:38> Orientation/consciousness: patient oriented x3 <MOHIT Linton - Last Filed: 04/09/22 12:38> Neck Neck: Yes normal visual inspection and Yes no JVD <MOHIT Linton Last Filed: 04/09/22 12:38> Resp Effort & Inspection: normal respiratory effort <MOHIT Linton - Last Filed: 04/09/22 12:38> Auscultation: clear to auscultation bilaterally, no crackles, no rales, no rhonchi and no wheezes <FARIDEH LintonC - Last Filed: 04/09/22 12:38> Cardio Rate: regular rate <FARIDEH LintonC - Last Filed: 04/09/22 12:38> Rhythm: abnormal rhythm <MOHIT Linton Last Filed: 04/09/22 12:38> Heart sounds: S1 normal heart sound present, S2 normal heart sound present, no gallops, no murmurs and no rubs <FARIDEH LintonC - Last Filed: 04/09/22 12:38> Neuro General: patient oriented x3 <FARIDEH LintonC - Last Filed: 04/09/22 12:38> Extrem General: Yes normal to inspection <FARIDEH LintonC - Last Filed: 04/09/22 12:38> Psych Appearance: grossly normal <MOHIT Linton Last Filed: 04/09/22 12:38> Mental Status: mental status grossly normal <FARIDEH LintonC Yung Last Filed: 04/09/22 12:38> Objective Labs and Meds Result diagrams: : 04/07/22 05:48 04/09/22 06:17 <MOHIT Linton - Last Filed: 04/09/22 12:38> Lab results: Laboratory Results - last 24 hr 04/08/22 04/08/22 04/09/22 16:21 21:15 06:17 VBG pH VBG pCO2 VBG pO2 VBG HCO3 VBG O2 Saturation VBG Base Excess Sodium 131 L Potassium 3.8 Chloride 83 L Carbon Dioxide 35 H Anion Gap 17 BUN 55 H Creatinine 1.45 H Estim Creat Clear Calc 41.4 Estimated GFR 35 POC Glucose 253 H 290 H Random Glucose 248 H Calcium 9.0 04/09/22 04/09/22 04/09/22 06:27 07:11 11:24 VBG pH 7.51 H VBG pCO2 47 VBG pO2 61 VBG HCO3 38 H VBG O2 Saturation 90.0 VBG Base Excess 13.4 Sodium Potassium Chloride Carbon Dioxide Anion Gap BUN Creatinine Estim Creat Clear Calc Estimated GFR POC Glucose 207 H 295 H Random Glucose Calcium <Isabel M MOHIT Adames - Last Filed: 04/09/22 12:38> Progress Note: A&P Assessment and plan (1) Acute exacerbation of congestive heart failure: Status: Acute <Isabel Hakeem MOHIT Adames - Last Filed: 04/09/22 12:38> Assessment and Plan: History of diastolic heart failure, pulmonary hypertension, tricuspid regu rgitation who was admitted with decompensated heart failure and treated for volume overload. Last echo done 02/01/2022 showed EF 65-70%, moderate increase in the RV cavity size, moderate decrease in the RV systolic function, left atrium moderately dilated. She was initially given IV Bumex then changed over to p.o. torsemide. She was having hypokalemia and given potassium supplement. Her Aldactone dose had been increased. Her blood pressures were low yesterday and her Aldactone dose was reduced. Current fluid balance is negative 9 L since admission, 1700 in the last 24 hours. Her blood pressure is still on the low side at 90/57 with a low of 69/56 during the night. Hypotension likely in the setting of quick diuresis and titration of Aldactone. Will place her torsemide and Aldactone on hold. Will give 500 cc of normal saline over the next 10 hours. Continue close blood pressure monitoring, strict I&O. Close monitoring of electrolytes and kidney function. We will follow. <MOHIT Linton - Last Filed: 04/09/22 12:38> History of diastolic heart failure, pulmonary hypertension, tricuspid regurgitation who was admitted with decompensated heart failure and treated for volume overload. Last echo done 02/01/2022 showed EF 65-70%, moderate increase in the RV cavity size, moderate decrease in the RV systolic function, left atrium moderately dilated. She was initially given IV Bumex then changed over to p.o. torsemide. She was having hypokalemia and given potassium supplement. Her Aldactone dose had been increased. Her blood pressures were low yesterday and her Aldactone dose was reduced. Current fluid balance is negative 9 L since admission, 1700 in the last 24 hours. Her blood pressure is still on the low side at 90/57 with a low of 69/56 during the night. Hypotension likely in the setting of quick diuresis and titration of Aldactone. Will place her torsemide and Aldactone on hold. Will give 500 cc of normal saline over the next 10 hours. Continue close blood pressure monitoring, strict I&O. Close monitoring of electrolytes and kidney function. We will follow. Patient seen and examined. Case discussed with Isabel Adames. Patient has been running low blood pressure. Her course has been complicated with initially fluid overload and now with low blood pressure. May be due to over-diuresis as well as aggressive titration of her medications. For now will hold her diuretics as well as spironolactone therapy. Will give her gentle fluid hydration, 500 cc over 10 hours. Continue monitor blood pressure. If her blood pressure stabilizes will resume her oral diuretic torsemide 40 mg b.i.d. and spironolactone at maybe 25 mg daily. Overall her prognosis is limited in the long run. She would definitely benefit with CardioMEMS device. Will continue to follow with you <Richi Duran MD - Last Filed: 04/09/22 15:28> (2) Hypotension: Status: Acute <MOHIT Linton - Last Filed: 04/09/22 12:38> (3) Chronic atrial fibrillation: Status: Acute <MOHIT Linton - Last Filed: 04/09/22 12:38> Assessment and Plan: History of chronic AFib. Not on rate slowing medications. cardiac monitor currently showing AFib with rates ranging 80s up to a high of 116. Blood pressure is low. If rate slowing agent is needed then digoxin would be considered. She does have known chronic kidney disease with creatinine today 1.45. Ongoing telemetry monitoring. She is on Xarelto for anticoagulation. No bleeding issues noted <MOHIT Linton - Last Filed: 04/09/22 12:38> (4) Morbid obesity: Status: Acute <MOHIT Linton - Last Filed: 04/09/22 12:38> (5) CKD (chronic kidney disease): Status: Acute <MOHIT Linton - Last Filed: 04/09/22 12:38> (6) MELANIE (obstructive sleep apnea): Status: Acute <MOHIT Linton - Last Filed: 04/09/22 12:38> Assessment and Plan: Wore mask during the night and reports compliance with mask at home <MOHIT Linton - Last Filed: 04/09/22 12:38> Time Spent With Patient Time: Total time spent is greater than 50% in coordination of care (as documented) at patient's floor/unit and/or counseling patient: 20 <MOHIT Linton - Last Filed: 04/09/22 12:38> Progress Note: Quality Stroke Does the patient have a stroke diagnosis?: No <MOHIT Linton - Last Filed: 04/09/22 12:38> Procedures Date of Service Date of Service: 04/09/22 <MOHIT Linton - Last Filed: 04/09/22 12:38>
[2022-04-09] MEDS: 0.9 % Sodium Chloride 500 ML 50 ML IVCONT ×2 (12:57→22:35)
[2022-04-09] MEDS: Rivaroxaban 15 MG TABLET PO (16:59)
[2022-04-09 22:30] LABS: Glucose, Whole Blood 336 mg/dL (60-115)
[2022-04-09] MEDS: Pravastatin Sodium 20 MG TABLET PO (22:34)
[2022-04-10 02:58] VITALS: BP 111/61; PULSE 85; RESP 20; TEMP 37.1; O2SAT 93
[2022-04-10] MEDS: 0.9 % Sodium Chloride 500 ML 50 ML IVCONT (06:32)
[2022-04-10 07:47] VITALS: PULSE 97; RESP 18; O2SAT 95
[2022-04-10 08:00] VITALS: BP 96/52; PULSE 96; RESP 20; TEMP 36.6; O2SAT 97
[2022-04-10 08:18] LABS: Glucose, Whole Blood 191 mg/dL (60-115)
[2022-04-10] MEDS: Insulin Lispro 100 UNIT/ML 3 ML VIAL SUBCUT ×4 (08:23→22:01)
[2022-04-10] MEDS: Potassium Chloride Packet 20 MEQ PACKET 40 MEQ PO ×2 (08:23→22:00)
[2022-04-10] MEDS: Insulin Glargine,Hum.rec.anlog 100 UNIT/ML 10 ML VIAL 35 UNIT SUBCUT (08:24)
[2022-04-10] MEDS: Gabapentin 300 MG CAPSULE PO ×3 (08:24→22:00)
[2022-04-10] MEDS: allopurinoL 100 MG TABLET PO (08:25)
[2022-04-10] MEDS: Empagliflozin 10 MG TABLET PO (08:25)
[2022-04-10] MEDS: Docusate Sodium 100 MG CAPSULE PO (08:25)
[2022-04-10] MEDS: Multivitamin TABLET 1 TAB PO (08:25)
[2022-04-10] MEDS: Ferrous Sulfate 324 MG TABLET.DR PO (08:25)
[2022-04-10] MEDS: Zinc Sulfate 220 MG CAPSULE PO (08:25)
[2022-04-10] MEDS: Cholecalciferol (Vitamin D3) 25 MCG TABLET PO (08:25)
[2022-04-10] MEDS: 0.9 % Sodium Chloride Flush 3 ML SYRINGE IVFLUSH ×2 (08:26→15:51)
[2022-04-10] MEDS: Torsemide 20 MG TABLET 40 MG PO ×2 (08:26→15:51)
--- NOTE | 2022-04-10 09:19 | PM.PNCARD ---
Subjective Subjective Date of Service: 04/10/22 <MOHIT Linton - Last Filed: 04/10/22 11:54> 04/10/22 <Richi Duran MD - Last Filed: 04/10/22 16:12> Principal diagnosis: decompensated heart failure <MOHIT Linton - Last Filed: 04/10/22 11:54> Interval history: Seen at 1045. Today she reports feeling well and wants to go home. Had issues with urinary incontinence during night and did not sleep well. Reports some weakness when getting out of bed this am. Frustrated over not being allowed to walk around. Breathing is comfortable at rest. Reports having some sob with activity but adds that that is her usual. Denies chest pains, palpitations, dizziness, leg edema. Receiving IV fluids this am. Am labs still pending. Tele showing Afib rate range 80-116, PVCs noted. <MOHIT Linton - Last Filed: 04/10/22 11:54> Review of Systems Review of Systems as above <MOHIT Linton - Last Filed: 04/10/22 11:54> Yes all other systems are reviewed and are negative <MOHIT Linton - Last Filed: 04/10/22 11:54> Physical Exam Vital Signs: Last Vital Signs Temp 97.8 F 04/10/22 08:00 Pulse 96 04/10/22 08:00 Resp 20 04/10/22 08:00 BP 96/52 L 04/10/22 08:00 Pulse Ox 97 04/10/22 08:00 O2 Del Method 04/10/22 08:00 O2 Flow Rate 2 04/10/22 08:00 FiO2 28 04/10/22 03:34 BMI result Body Mass Index 38.3 <MOHIT Linton Last Filed: 04/10/22 11:54> Const General: cooperative, comfortable and no acute distress <MOHIT Linton Last Filed: 04/10/22 11:54> Neck Neck: Yes normal visual inspection and Yes no JVD <MOHIT Linton - Last Filed: 04/10/22 11:54> Resp Effort & Inspection: normal respiratory effort <FARIDEH LintonC - Last Filed: 04/10/22 11:54> Auscultation: clear to auscultation bilaterally, no crackles, no rales, no rhonchi and no wheezes <FARIDEH LintonC - Last Filed: 04/10/22 11:54> Cardio Rate: regular rate <FARIDEH LintonC - Last Filed: 04/10/22 11:54> Heart sounds: S1 normal heart sound present, S2 normal heart sound present, no gallops, no murmurs and no rubs <FARIDEH LintonC - Last Filed: 04/10/22 11:54> Peripheral pulses: Peripheral pulses 2+ throughout <FARIDEH Linton - Last Filed: 04/10/22 11:54> GI Inspection: Yes normal to inspection <FARIDEH Linton - Last Filed: 04/10/22 11:54> Extrem General: No no pedal edema <FARIDEH Linton - Last Filed: 04/10/22 11:54> Psych Appearance: grossly normal <FARIDEH LintonC - Last Filed: 04/10/22 11:54> Mental Status: mental status grossly normal <FARIDEH Linton - Last Filed: 04/10/22 11:54> Objective Labs and Meds Result diagrams: : 04/07/22 05:48 04/10/22 10:09 <Isabel Adames FARIDEH - Last Filed: 04/10/22 11:54> Lab results: Laboratory Results - last 24 hr 04/09/22 04/09/22 04/10/22 11:24 22:26 08:06 POC Glucose 295 H 336 H 191 H <FARIDEH LintonC - Last Filed: 04/10/22 11:54> Progress Note: A&P Assessment and plan (1) Acute exacerbation of congestive heart failure: Status: Acute <Isabel Adames FARIDEHC - Last Filed: 04/10/22 11:54> Assessment and Plan: History of diastolic heart failure, pulmonary hypertension, tricuspid regurgitation who was admitted with decompensated heart failure and treated for volume overload. Last echo done 02/01/2022 showed EF 65-70%, moderate increase in the RV cavity size, moderate decrease in the RV systolic function, left atrium moderately dilated. She was initially given IV Bumex then changed over to p.o. torsemide. She was having hypokalemia and given potassium supplement. Her Aldactone dose had been increased. Her blood pressures were low yesterday and her Aldactone dose was reduced then held. Fluid balance is negative 9 L since admission. Diuretics have been on hold since yesterday. Her BP was running low and yesterday she was treated with 500cc normal saline over 10 hrs. BP this am 96/62 and again is receiving 500 cc fluid. NA 131 yesterday and 133 today, K 4.1, Cr 1.45 yesterday and 1.39 today. BNP 402 on admit and 399 today. Case reviewed with Dr Duran. Continue to follow another day. Close BP, I+O monitoring. Increase physical activity as tolerated. Recheck of BMP in am. We will follow. <MOHIT Linton - Last Filed: 04/10/22 11:54> History of diastolic heart failure, pulmonary hypertension, tricuspid regurgitation who was admitted with decompensated heart failure and treated for volume overload. Last echo done 02/01/2022 showed EF 65-70%, moderate increase in the RV cavity size, moderate decrease in the RV systolic function, left atrium moderately dilated. She was initially given IV Bumex then changed over to p.o. torsemide. She was having hypokalemia and given potassium supplement. Her Aldactone dose had been increased. Her blood pressures were low yesterday and her Aldactone dose was reduced then held. Fluid balance is negative 9 L since admission. Diuretics have been on hold since yesterday. Her BP was running low and yesterday she was treated with 500cc normal saline over 10 hrs. BP this am 96/62 and again is receiving 500 cc fluid. NA 131 yesterday and 133 today, K 4.1, Cr 1.45 yesterday and 1.39 today. BNP 402 on admit and 399 today. Case reviewed with Dr Duran. Continue to follow another day. Close BP, I+O monitoring. Increase physical activity as tolerated. Recheck of BMP in am. We will follow. Patient seen and examined. Case discussed with Isabel Adames. Patient appears somewhat more short of breath when I saw her. Worsening leg edema at this point time. Has been getting IV fluids and her diuretics have been withheld except for this morning she did get torsemide 40 mg. No Aldactone. Blood pressures improved. Will continue to hold Aldactone therapy. Stand Up Comedian dose of torsemide 40 mg now. Strict intake and output chart to assess fluid balance. Continue monitor renal function closely. Will continue follow with her clinically. She does require CardioMEMS device at some point in time overall prognosis is guarded. <Richi Duran MD - Last Filed: 04/10/22 16:12> (2) Hypotension: Status: Acute <MOHIT Linton - Last Filed: 04/10/22 11:54> Assessment and Plan: Improving <MOHIT Linton - Last Filed: 04/10/22 11:54> (3) Chronic atrial fibrillation: Status: Acute <MOHIT Linton - Last Filed: 04/10/22 11:54> Assessment and Plan: History of chronic AFib. 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 Blood pressure is still on low side low. If rate slowing agent is needed then digoxin would be considered. She does have known chronic kidney disease with creatinine today 1.39. Ongoing telemetry monitoring. She is on Xarelto for anticoagulation. No bleeding issues noted <MOHIT Linton - Last Filed: 04/10/22 11:54> History of chronic AFib. 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 Blood pressure is still on low side low. If rate slowing agent is needed then digoxin would be considered. She does have known chronic kidney disease with creatinine today 1.39. Ongoing telemetry monitoring. She is on Xarelto for anticoagulation. No bleeding issues noted Rates are borderline but not significantly elevated. Will continue to monitor them. Continue full oral anticoagulation Xarelto. Will follow with you <Richi Duran MD - Last Filed: 04/10/22 16:12> (4) Morbid obesity: Status: Acute <MOHIT Linton - Last Filed: 04/10/22 11:54> (5) CKD (chronic kidney disease): Status: Acute <MOHIT Linton - Last Filed: 04/10/22 11:54> (6) MELANIE (obstructive sleep apnea): Status: Acute <MOHIT Linton - Last Filed: 04/10/22 11:54> Assessment and Plan: Wore mask during the night and reports compliance with mask at home <MOHIT Linton - Last Filed: 04/10/22 11:54> Time Spent With Patient Time: Total time spent is greater than 50% in coordination of care (as documented) at patient's floor/unit and/or counseling patient: 20 <MOHIT Linton - Last Filed: 04/10/22 11:54> Progress Note: Quality Stroke Does the patient have a stroke diagnosis?: No <MOIHT Linton - Last Filed: 04/10/22 11:54> Procedures Date of Service Date of Service: 04/10/22 <MOHIT Linton - Last Filed: 04/10/22 11:54>
[2022-04-10 10:38] LABS: B Type Natriuretic Peptide 399 pg/mL (<100)
[2022-04-10 10:45] LABS: Anion Gap 15 (12-20); Blood Urea Nitrogen 48 mg/dL (9-16); Calcium 9.4 mg/dL (8.4-10.2); Carbon Dioxide 32 mmol/L (22-29); Chloride 90 mmol/L (96-108); Creatinine Clr Calc Pharmacy 43.2; Estimated Glomerular Filt Rate 37; Glucose Random 366 mg/dL (60-115); Potassium 4.1 mmol/L (3.3-5.1); Sodium 133 mmol/L (135-145)
[2022-04-10 11:16] VITALS: BP 97/55; PULSE 83; RESP 16; TEMP 36.7; O2SAT 96
[2022-04-10 11:21] LABS: Glucose, Whole Blood 328 mg/dL (60-115)
[2022-04-10] MEDS: Amoxicillin/Potassium Clav 875 MG TABLET PO ×2 (11:35→22:00)
--- NOTE | 2022-04-10 12:13 | HO.PM.IMPN ---
Subjective Subjective Date of Service: 04/10/22 Interval History: BP improved not lightheaded or dizzy chronic dyspnea from lung disease adherent with BiPAP Review of Systems Review of Systems: Yes all other systems are reviewed and are negative Physical Exam Vital Signs: Vital Signs: Last Vital Signs Temp 98.1 F 04/10/22 11:16 Pulse 83 04/10/22 11:16 Resp 16 04/10/22 11:16 BP 97/55 L 04/10/22 11:16 Pulse Ox 96 04/10/22 11:16 O2 Del Method 04/10/22 11:16 O2 Flow Rate 2 04/10/22 11:16 FiO2 28 04/10/22 03:34 BMI result Body Mass Index 38.3 Gen: in no acute distress HEENT: sclera anicteric, moist mucus membranes Neck: supple Lungs: clear to auscultation bilaterally, chronic pursed-lip breathing Heart: irregularly irregular Abd: soft, non-tender, non-distended Ext: no LE edema Skin: warm/well-perfused Neuro: alert and oriented x3, no focal findings Psych: appropriate affect Objective Data Active Medications Albuterol Sulfate (Albuterol Sulfate 90 Mcg 8 Gm Inhaler) 2 puff INHALE Q6H PRN PRN Reason: shortness of breath or wheezing Last Admin: 04/05/22 08:13 Dose: 2 puff Documented By: CHELITA Allopurinol (Allopurinol 100 Mg Tablet) 100 mg PO DAILY [facility] Last Admin: 04/10/22 08:25 Dose: 100 mg Documented By: DILIP Amoxicillin/Clavulanate Potassium (Amoxicillin/Potassium Clav 875 Mg Tablet) 875 mg PO Q12H [facility] Last Admin: 04/10/22 11:35 Dose: 875 mg Documented By: DILIP Docusate Sodium (Docusate Sodium 100 Mg Capsule) 100 mg PO DAILY [facility] Last Admin: 04/10/22 08:25 Dose: 100 mg Documented By: DILIP Empagliflozin (Empagliflozin 10 Mg Tablet) 10 mg PO DAILY [facility] Last Admin: 04/10/22 08:25 Dose: 10 mg Documented By: DILIP Ferrous Sulfate (Ferrous Sulfate 324 Mg Tablet.) 324 mg PO DAILY [facility] Last Admin: 04/10/22 08:25 Dose: 324 mg Documented By: DILIP Gabapentin (Gabapentin 300 Mg Capsule) 300 mg PO TID [facility] Last Admin: 04/10/22 08:24 Dose: 300 mg Documented By: DILIP Insulin Glargine (Insulin Glargine,Hum.Rec.Anlog 100 Unit/Ml 10 Ml Vial) 35 unit SUBCUT DAILY@0700 [facility] Last Admin: 04/10/22 08:24 Dose: 35 unit Documented By: DILIP Insulin Human Lispro (Insulin Lispro 100 Unit/Ml 3 Ml Vial) 0 unit SUBCUT QIDACHS [facility]; Protocol Last Admin: 04/10/22 11:35 Dose: 8 unit Documented By: DILIP Multivitamins/Vitamin C (Multivitamin Tablet) 1 tab PO DAILY [facility] Last Admin: 04/10/22 08:25 Dose: 1 tab Documented By: DILIP Pharmacy Consult (Consult Rx Perform Med Rec) 1 each MISCELLANE ONCE PRN PRN Reason: Consult order Potassium Chloride (Potassium Chloride Packet 20 Meq Packet) 40 meq PO BID [facility] Last Admin: 04/10/22 08:23 Dose: 40 meq Documented By: DILIP Pravastatin Sodium (Pravastatin Sodium 20 Mg Tablet) 20 mg PO BEDTIME [facility] Last Admin: 04/09/22 22:34 Dose: 20 mg Documented By: NAZANIN Psyllium Hydrophilic Mucilloid (Psyllium Seed 3.4 Gm Powd.Pack) 3.4 gm PO DAILY [facility] Last Admin: 04/10/22 08:22 Dose: 3.4 gm Documented By: DILIP Rivaroxaban (Rivaroxaban 15 Mg Tablet) 15 mg PO DAILY@1500 [facility] Last Admin: 04/09/22 16:59 Dose: 15 mg Documented By: LATIA Senna/Docusate Sodium (Sennosides/Docusate Sodium Tablet) 2 tab PO BID PRN PRN Reason: constipation Sodium Chloride (0.9 % Sodium Chloride Flush 3 Ml Syringe) 3 ml IVFLUSH QSHIFT [facility] Last Admin: 04/10/22 08:26 Dose: 3 ml Documented By: DILIP Tiotropium Crosby (Tiotropium Crosby 18 Mcg Cap.W.Dev) 1 puff INHALE RDAILY [facility] Last Admin: 04/10/22 07:46 Dose: 1 puff Documented By: HO.BLASCL Torsemide (Torsemide 20 Mg Tablet) 40 mg PO BID@0800,1700 [facility]; Protocol Last Admin: 04/10/22 08:26 Dose: 40 mg Documented By: DILIP Vitamin D (Cholecalciferol (Vitamin D3) 25 Mcg Tablet) 25 mcg PO DAILY [facility] Last Admin: 04/10/22 08:25 Dose: 25 mcg Documented By: DILIP Zinc Sulfate (Zinc Sulfate 220 Mg Capsule) 220 mg PO DAILY [facility] Last Admin: 04/10/22 08:25 Dose: 220 mg Documented By: DILIP Labs CBC & Chem 7: 04/07/22 05:48 04/10/22 10:09 Labs: Laboratory Results - last 24 hr 04/09/22 04/10/22 04/10/22 22:26 08:06 10:09 Anion Gap 15 Estim Creat Clear Calc 43.2 Estimated GFR 37 POC Glucose 336 H 191 H Random Glucose 366 H* Calcium 9.4 B-Natriuretic Peptide 04/10/22 04/10/22 10:09 11:15 Anion Gap Estim Creat Clear Calc Estimated GFR POC Glucose 328 H Random Glucose Calcium B-Natriuretic Peptide 399 H Microbiology Microbiology Results: Microbiology 04/04/22 12:13 Blood Culture - Final Blood - Venous No growth after 5 days. 04/04/22 12:06 Blood Culture - Final Blood - Venous No growth after 5 days. Assessment and Plan (1) Chronic atrial fibrillation: Status: Acute (2) Acute exacerbation of congestive heart failure: Status: Acute Plan hospital d#6 72yo F wtih R-sided HF, diastolic HF, pHTN presented for implantation of CardioMEMS but admitted for volume overload + cellulitis now hypotensive # hypotension # acute exacerbation of chronic HFpEF - pt has very narrow therapeutic window between volume overload and volume depletion.? diuretics [torsemide + spironolactone] held yesterday and she was given IV fluid. restart torsemide at lower dose, d/c spironolactone for now.? continue empaglifozin.? pt also has 5 mg metolazone prn at home for weight gain and will need the CardioMEMS rescheduled urgently. # hypoK - repleted; on maintenance therapy; recheck electrolytes tomorrow # metabolic alkalosis - due to diuresis + hypercapnea; improved after acetazolamide; recheck electrolytes tomorrow # cellulitis of legs - stopped IV pip/roseann, changed to PO amox/clav, end date 04/13/22 # AF, persistent - continue rivaroxaban- changed to renal dosing (15 mg daily) - currently rate-contrlled at 83; if develops RVR, will require renally-dosed digoxin for rate control # chronic hypoxic + hypercapneic resp failure - on home O2, 2L via NC - continue BiPAP at night and with all naps # CKD3 - SCr at baseline; avoid nephrotoxins; recheck electrolytes tomorrow # COPD, not acute exac - continue tiotropium, prn albuterol # DM2 with hyperglycemia - continue empagliflozin, Lantus, Humalog ? # VTE ppx: rivaroxaban In my clinical judgment, the patient requires continued hospitalization for the following reasons: BP monitoring, hypotension Quality Stroke Does the patient have a stroke diagnosis?: No VTE Prior VTE?: No VTE Risk Level:: Medical - moderate - high VTE Device Contraindication: Treatment Not Indicated VTE Drug Contraindication: N/A - Med Ordered
--- NOTE | 2022-04-10 12:36 | P.F2F_ITS ---
Service Date Service Date: 04/10/22 Encounter Date of encounter: 04/10/22 Reasons for Services Signs and symptoms assessed: CHF Hypotension Reason for [facility]: CV/CP assess and/or care, medication management, medication treatment and teach disease management Reason for physical therapy: home safety and mobility, therapeutic exercises, gait/transfer training, assess need for DME, ADL training and energy conservation Overseeing Care: Teri Max Homebound: Leaving the home is medically contraindicated at this time without the asist of a device and/or another person due th the listed conditions above and below. Reason homebound: unsteady gait / fall risk, shortness of breath with minimal effort and weakness related to hospital stay Certification: Based on the above findings, I certify that this patient is confined to the home and needs intermittent [facility] care, physical therapy and/or speech therapy, or continues to need occupational therapy. The patient is under my care, and I have initiated the establishment of the plan of care. The patient will be followed by a physician who will periodically review the plan of care.
[2022-04-10 15:45] VITALS: BP 98/61; PULSE 80; RESP 18; TEMP 37.1; O2SAT 90
[2022-04-10] MEDS: Rivaroxaban 15 MG TABLET PO (15:51)
--- NOTE | 2022-04-10 15:51 | MHC.CM.PN ---
updated imm 04/[address] norris contact her froiend vielka hightower about her conditioin t/w called office with pts ramos with tomy number [phone]
[2022-04-10 16:09] LABS: Glucose, Whole Blood 274 mg/dL (60-115)
[2022-04-10 19:40] VITALS: BP 106/61; PULSE 76; RESP 18; TEMP 36.8; O2SAT 94
[2022-04-10 19:55] LABS: Glucose, Whole Blood 288 mg/dL (60-115)
[2022-04-10] MEDS: Pravastatin Sodium 20 MG TABLET PO (22:00)
[2022-04-11] VITALS: BP 134/75; PULSE 97; RESP 18; TEMP 35.9; O2SAT 94
[2022-04-11 01:00] VITALS: RESP 25
[2022-04-11] MEDS: 0.9 % Sodium Chloride Flush 3 ML SYRINGE IVFLUSH (01:37)
[2022-04-11 03:43] VITALS: BP 115/75; PULSE 91; RESP 17; TEMP 36.4; O2SAT 96
[2022-04-11 06:21] LABS: VBG Base Excess 8.6 mmol/L; VBG HCO3 35 mmol/L (22-26); VBG pCO2 57 mmHg; VBG pH 7.39 (7.32-7.43); VBG pO2 46 mmHg
[2022-04-11 06:23] LABS: Venous Blood Gas Refer to POC result
[2022-04-11 06:43] LABS: Anion Gap 16 (12-20); Blood Urea Nitrogen 47 mg/dL (9-16); Calcium 8.6 mg/dL (8.4-10.2); Carbon Dioxide 30 mmol/L (22-29); Chloride 94 mmol/L (96-108); Creatinine Clr Calc Pharmacy 49.2; Estimated Glomerular Filt Rate 43; Glucose Random 187 mg/dL (60-115); Potassium 3.6 mmol/L (3.3-5.1); Sodium 136 mmol/L (135-145)
[2022-04-11 07:37] VITALS: BP 113/64; PULSE 87; RESP 20; TEMP 36.6; O2SAT 97
[2022-04-11 07:52] LABS: Glucose, Whole Blood 165 mg/dL (60-115)
[2022-04-11 07:56] VITALS: PULSE 96; RESP 18; O2SAT 94
[2022-04-11] MEDS: Insulin Lispro 100 UNIT/ML 3 ML VIAL SUBCUT ×2 (08:18→11:32)
[2022-04-11] MEDS: Insulin Glargine,Hum.rec.anlog 100 UNIT/ML 10 ML VIAL 35 UNIT SUBCUT (08:19)
[2022-04-11] MEDS: Cholecalciferol (Vitamin D3) 25 MCG TABLET PO (08:20)
[2022-04-11] MEDS: Ferrous Sulfate 324 MG TABLET.DR PO (08:20)
[2022-04-11] MEDS: Multivitamin TABLET 1 TAB PO (08:21)
[2022-04-11] MEDS: Empagliflozin 10 MG TABLET PO (08:22)
[2022-04-11] MEDS: allopurinoL 100 MG TABLET PO (08:22)
[2022-04-11] MEDS: Zinc Sulfate 220 MG CAPSULE PO (08:22)
[2022-04-11] MEDS: Gabapentin 300 MG CAPSULE PO ×2 (08:22→14:32)
[2022-04-11] MEDS: Torsemide 20 MG TABLET 40 MG PO (08:22)
[2022-04-11] MEDS: Potassium Chloride Packet 20 MEQ PACKET 40 MEQ PO (08:23)
[2022-04-11 11:09] LABS: Glucose, Whole Blood 302 mg/dL (60-115)
[2022-04-11 11:14] VITALS: BP 109/55; PULSE 86; RESP 20; TEMP 36.4; O2SAT 96
--- NOTE | 2022-04-11 11:21 | PM.PNCARD ---
Subjective Subjective Date of Service: 04/11/22 <MOHIT Linton - Last Filed: 04/11/22 12:43> 04/11/22 <Richi Duran MD - Last Filed: 04/11/22 12:50> Principal diagnosis: decompensated heart failure <MOHIT Linton - Last Filed: 04/11/22 12:43> Interval history: Seen at 1000. Today she reports feeling good. Her breathing is at baseline. Denies having sob when she got up to recliner today. No chest pains, palpitations, dizziness, swelling. Feels ready to go home. Tele showing afib rates 80-116. <MOHIT Linton Last Filed: 04/11/22 12:43> Review of Systems Review of Systems as above <MOHIT Linton Last Filed: 04/11/22 12:43> Physical Exam Vital Signs: Last Vital Signs Temp 97.8 F 04/11/22 07:37 Pulse 96 04/11/22 07:56 Resp 18 04/11/22 07:56 BP 113/64 04/11/22 07:37 Pulse Ox 97 04/11/22 07:37 O2 Del Method 04/11/22 07:37 O2 Flow Rate 2 04/11/22 07:37 FiO2 28 04/11/22 03:12 BMI result Body Mass Index 38.3 <MOHIT Linton Last Filed: 04/11/22 12:43> Const General: cooperative, comfortable and no acute distress <MOHIT Linton - Last Filed: 04/11/22 12:43> Neck Neck: Yes normal visual inspection and Yes no JVD <MOHIT Linton - Last Filed: 04/11/22 12:43> Resp Effort & Inspection: normal respiratory effort <MOHIT Linton Last Filed: 04/11/22 12:43> Auscultation: clear to auscultation bilaterally, no crackles, no rales, no rhonchi and no wheezes <MOHIT Linton Last Filed: 04/11/22 12:43> Cardio Rate: regular rate <MOHIT Linton Last Filed: 04/11/22 12:43> Heart sounds: S1 normal heart sound present, S2 normal heart sound present, no gallops, no murmurs and no rubs <MOHIT Linton Last Filed: 04/11/22 12:43> Peripheral pulses: Peripheral pulses 2+ throughout <MOHIT Linton Last Filed: 04/11/22 12:43> GI Inspection: Yes normal to inspection <FARIDEH LintonC Yung Last Filed: 04/11/22 12:43> Extrem General: No no pedal edema <FARIDEH LintonC - Last Filed: 04/11/22 12:43> Psych Appearance: grossly normal <MOHIT Linton Last Filed: 04/11/22 12:43> Mental Status: mental status grossly normal <MOHIT Linton Last Filed: 04/11/22 12:43> Objective Labs and Meds Result diagrams: : 04/07/22 05:48 04/11/22 06:05 <MOHIT Linton Last Filed: 04/11/22 12:43> Lab results: Laboratory Results - last 24 hr 04/10/22 04/10/22 04/10/22 11:15 16:00 19:50 VBG pH VBG pCO2 VBG pO2 VBG HCO3 VBG O2 Saturation VBG Base Excess Sodium Potassium Chloride Carbon Dioxide Anion Gap BUN Creatinine Estim Creat Clear Calc Estimated GFR POC Glucose 328 H 274 H 288 H Random Glucose Calcium 04/11/22 04/11/22 04/11/22 06:05 06:15 07:42 VBG pH 7.39 VBG pCO2 57 VBG pO2 46 VBG HCO3 35 H VBG O2 Saturation 65.0 VBG Base Excess 8.6 Sodium 136 Potassium 3.6 Chloride 94 L Carbon Dioxide 30 H Anion Gap 16 BUN 47 H Creatinine 1.22 Estim Creat Clear Calc 49.2 Estimated GFR 43 POC Glucose 165 H Random Glucose 187 H Calcium 8.6 D 04/11/22 11:02 VBG pH VBG pCO2 VBG pO2 VBG HCO3 VBG O2 Saturation VBG Base Excess Sodium Potassium Chloride Carbon Dioxide Anion Gap BUN Creatinine Estim Creat Clear Calc Estimated GFR POC Glucose 302 H Random Glucose Calcium <MOHIT Linton - Last Filed: 04/11/22 12:43> Progress Note: A&P Assessment and plan (1) Acute exacerbation of congestive heart failure: Status: Acute <MOHIT Linton - Last Filed: 04/11/22 12:43> Assessment and Plan: History of diastolic heart failure, pulmonary hypertension, tricuspid regurgitation who was admitted with decompensated heart failure and treated for volume overload. Last echo done 02/01/2022 showed EF 65-70%, moderate increase in the RV cavity size, moderate decrease in the RV systolic function, left atrium moderately dilated. This admit with was diuresed and initially had quick titration of aldactone dose. She then had hypotension requiring hold of diuretics and aldactone and IV NS infusion. At this time her condition has improved. Sodium up to 136, Cr 1.22. Fluid balance for this admission neg 11 liters. She reports breathing is at her baseline normal and she would like to be discharged. She does not appear fluid overloaded on exam. Tells me she was able to walk in [place] with nurse/ walker and did well. Pt may be discharged from a cardiology perspective. Will continue her on Torsemide 40mg bid. Will start on Aldactone 12.5mg daily. She needs to have CardioMems device placed as outpt in near future to assist with HF monitoring and management. We will arrange this and outpt cardiology follow up. Reviewed s/s HF, low salt diet, med complaince with her. . <MOHIT Linton - Last Filed: 04/11/22 12:43> History of diastolic heart failure, pulmonary hypertension, tricuspid regurgitation who was admitted with decompensated heart failure and treated for volume overload. Last echo done 02/01/2022 showed EF 65-70%, moderate increase in the RV cavity size, moderate decrease in the RV systolic function, left atrium moderately dilated. This admit with was diuresed and initially had quick titration of aldactone dose. She then had hypotension requiring hold of diuretics and aldactone and IV NS infusion. At this time her condition has improved. Sodium up to 136, Cr 1.22. Fluid balance for this admission neg 11 liters. She reports breathing is at her baseline normal and she would like to be discharged. She does not appear fluid overloaded on exam. Tells me she was able to walk [place] with nurse/ walker and did well. Pt may be discharged from a cardiology perspective. Will continue her on Torsemide 40mg bid. Will start on Aldactone 12.5mg daily. She needs to have CardioMems device placed as outpt in near future to assist with HF monitoring and management. We will arrange this and outpt cardiology follow up. Reviewed s/s HF, low salt diet, med complaince with her. . Patient seen and examined. Case discussed with Isabel Adames. Patient much more comfortable today for shortness of breath. Blood pressures been stable. I think patient can be discharged home with services and will try to schedule her soon for CardioMEMS procedure as outpatient. Can be discharged home on 12.5 mg of spironolactone, Jardiance as well as torsemide 40 mg b.i.d.. Additional diuretics at home as she is already aware of. Overall prognosis is limited due to recurrent hospitalization. Goal of therapy is to avoid hospitalization. <Richi Duran MD - Last Filed: 04/11/22 12:50> (2) Hypotension: Status: Acute <MOHIT Linton - Last Filed: 04/11/22 12:43> Assessment and Plan: Resolved <MOHIT Linton - Last Filed: 04/11/22 12:43> (3) Chronic atrial fibrillation: Status: Acute <MOHIT Linton - Last Filed: 04/11/22 12:43> Assessment and Plan: History of chronic AFib. Not on rate slowing medications. front desk monitor currently showing AFib with rates ranging 80s up to a high of 115 ( mostly 80-90s). She is on Xarelto for anticoagulation. No bleeding issues noted. Continue current tx. <MOHIT Linton - Last Filed: 04/11/22 12:43> (4) Morbid obesity: Status: Acute <MOHIT Linton - Last Filed: 04/11/22 12:43> (5) CKD (chronic kidney disease): Status: Acute <MOHIT Linton - Last Filed: 04/11/22 12:43> Assessment and Plan: CORINNA improved. <MOHIT Linton - Last Filed: 04/11/22 12:43> (6) MELANIE (obstructive sleep apnea): Status: Acute <MOHIT Linton Last Filed: 04/11/22 12:43> Assessment and Plan: Wearing mask during the night in hospital and reports compliance with mask at home <MOHIT Linton - Last Filed: 04/11/22 12:43> Time Spent With Patient Time: Total time spent is greater than 50% in coordination of care (as documented) at patient's floor/unit and/or counseling patient: 22 <MOHIT Linton - Last Filed: 04/11/22 12:43> Progress Note: Quality Stroke Does the patient have a stroke diagnosis?: No <MOHIT Linton - Last Filed: 04/11/22 12:43> Procedures Date of Service Date of Service: 04/11/22 <MOHIT Linton - Last Filed: 04/11/22 12:43>
[2022-04-11] MEDS: Spironolactone 25 MG TABLET 12.5 MG PO (11:31)
[2022-04-11] MEDS: Amoxicillin/Potassium Clav 875 MG TABLET PO (11:32)
--- NOTE | 2022-04-11 11:57 | PM.DS ---
DS: Providers Provider Date of Service: 04/11/22 Date of admission: 04/04/22 14:26 Date of discharge: 04/11/22 Primary care physician: Teri Max MD Consults: 04/05/22 09:09 Consult to Cardiology Routine Consulting Provider: Dave Lau Reason for consultation: CHF Has provider been notified: Yes DS: Diagnosis Discharge Diagnosis (1) Acute exacerbation of congestive heart failure: Status: Acute (2) Hypotension: Status: Acute (3) Chronic atrial fibrillation: Status: Acute (4) Morbid obesity: Status: Acute (5) CKD (chronic kidney disease): Status: Acute (6) MELANIE (obstructive sleep apnea): Status: Acute DS: Summary Hospital Course Hospital Course: 72-year-old female with known history of diastolic heart failure, COPD, morbid obesity, diabetic neuropathy, hypertension, hyperlipidemia, tricuspid regurgitation, kidney disease and pulmonary hypertension.? She was referred for CardioMEMS device and came for the procedure today.? She was short of breath even with talking and reported approximately 10-12 lb weight gain.? She has significant peripheral edema with significant erythema on both lower extremities.She will be admitted for aggressive diuresis Hospital course Patient was admitted and seen in consultation by Cardiology. Her diuretics were adjusted and she had a total diuresis of approximately 10 L.Last echo done 02/01/2022 showed EF 65-70%, moderate increase in the RV cavity size, moderate decrease in the RV systolic function, left atrium moderately dilated.? She was initially given IV Bumex then changed over to p.o. torsemide.? She was having hypokalemia and given potassium supplement. Her Aldactone dose had been increased.? Her blood pressures were low yesterday and her Aldactone dose was reduced then held.??She did refuse C5 100 of normal saline over 10 hours in response to her hypotension. On the day of discharge she has no acute distress she is hemodynamically stable and acceptable for discharge per Cardiology. She will be discharged home on Demadex 40 mg b.i.d. and Aldactone 12.5 mg daily. Cardiology will schedule a follow-up insertion date for her CardioMEMS device early next week. She should follow-up with her PCP in 2-4 weeks; Cardiology at their discretion Time Spent with Patient Time attestation: Total time spent providing and/or coordinating discharge services: Discharge coordination time: Greater than 30 minutes Quality: Safe Use of Opioids Does Pt have an Active Cancer Diagnosis on the Problem List?: No Quality: Stroke Does the patient have a stroke diagnosis?: No Physical Exam Vital Signs: Vital Signs: Last Vital Signs Temp 97.5 F 04/11/22 11:14 Pulse 86 04/11/22 11:14 Resp 20 04/11/22 11:14 BP 109/55 L 04/11/22 11:14 Pulse Ox 96 04/11/22 11:14 O2 Del Method 04/11/22 11:14 O2 Flow Rate 2 04/11/22 11:14 FiO2 28 04/11/22 03:12 BMI result Body Mass Index 38.3 Const: Other: Resting quietly in bed no respiratory distress Resp: Other: Clear to auscultation bilaterally no rales rhonchi or wheezes Cardio: Other: No S4; positive S1-S2; no S3 murmurs rubs gallops GI: Other: Soft nontender nondistended with normoactive bowel sounds Extrem: Other: A 2+ edema bilaterally DS: Data Data Completed and Pending Completed studies during hospitalization [Text1]: Procedures Assistance with Respiratory Ventilation, Less than 24 Consecutive Hours, Continuous Positive Airway Pressure (01/29/22) Labs on day of discharge: Laboratory Results - last 24 hr 04/10/22 04/10/22 04/11/22 16:00 19:50 06:05 VBG pH VBG pCO2 VBG pO2 VBG HCO3 VBG O2 Saturation VBG Base Excess Sodium 136 Potassium 3.6 Chloride 94 L Carbon Dioxide 30 H Anion Gap 16 BUN 47 H Creatinine 1.22 Estim Creat Clear Calc 49.2 Estimated GFR 43 POC Glucose 274 H 288 H Random Glucose 187 H Calcium 8.6 D 04/11/22 04/11/22 04/11/22 06:15 07:42 11:02 VBG pH 7.39 VBG pCO2 57 VBG pO2 46 VBG HCO3 35 H VBG O2 Saturation 65.0 VBG Base Excess 8.6 Sodium Potassium Chloride Carbon Dioxide Anion Gap BUN Creatinine Estim Creat Clear Calc Estimated GFR POC Glucose 165 H 302 H Random Glucose Calcium Discharge Plan Discharge Patient Disposition: Home Health Service Discharge Diagnosis: Acute exacerbation of systolic congestive heart failure Referrals: Teri Max MD [Primary Care Provider] - 1 Week Discharge Medications: New torsemide 20 mg Tablet 40 mg PO BID@0800,1700 Qty: 120 0RF Protocol: Hold for SBP< HOLD for SBP < : 90 spironolactone [Aldactone] 25 mg tablet 12.5 mg PO DAILY Qty: 30 0RF Continued (DME) OneTouch Ultra Blue Test Strip Strip See Rx Instructions .ROUTE .MEDSUPPLY Qty: 100 11RF Rx Instructions: 4x daily (DME) lancets [OneTouch Delica Plus Lancet] 33 gauge misc See Rx Instructions .ROUTE .MEDSUPPLY Qty: 100 11RF Rx Instructions: 4x daily (DME) FreeStyle [place] 14 Day Sensor Kit See Rx Instructions .Route Qty: 2 11RF Rx Instructions: As directed gabapentin 300 mg capsule 300 mg PO TID 90 Days Qty: 270 1RF albuterol sulfate 90 mcg/actuation HFA aerosol inhaler 2 puff inhalation Q6H PRN (Reason: shortness of breath or wheezing) Qty: 1 0RF pravastatin 20 mg tablet 20 mg PO BEDTIME Qty: 90 0RF Insupen 32 gauge x 5/16 needle 1 ea miscellaneous QID Qty: 400 3RF Jardiance 10 mg tablet 10 mg PO DAILY Qty: 90 3RF potassium chloride 20 mEq tablet,ER particles/crystals 80 meq PO BID 30 Days Qty: 240 2RF insulin glargine [Basaglar KwikPen U-100 Insulin] 100 unit/mL (3 mL) insulin pen 35 unit SUBCUT DAILY@0700 insulin glargine [Basaglar KwikPen U-100 Insulin] 100 unit/mL (3 mL) insulin pen 10 unit SUBCUT DAILY@1200 Trulicity 4.5 mg/0.5 mL pen injector 4.5 mg SUBCUT TH@0900 bumetanide 1 mg tablet 4 mg PO BID@0800,1700 Protocol: Hold for SBP< HOLD for SBP < : 90 insulin aspart U-100 [Novolog Flexpen U-100 Insulin] 100 unit/mL (3 mL) insulin pen 25 unit subcut TIDAC Xarelto 20 mg tablet 20 mg PO DAILY@1500 fluticasone propion-salmeterol [Advair Diskus] 500-50 mcg/dose blister with device 1 inh INHALATION BID multivitamin Tablet 1 tab PO DAILY docusate sodium [Colace] 100 mg capsule 100 mg PO DAILY cholecalciferol (vitamin D3) 25 mcg (1,000 unit) capsule 25 mcg PO DAILY zinc acetate 50 mg (zinc) capsule 50 mg PO DAILY Rx Instructions: swallow whole; do not chew/break/dissolve/open vitamin B complex Tablet 1 tab PO DAILY ferrous sulfate [Feosol] 325 mg (65 mg iron) tablet 325 mg PO DAILY Spiriva with HandiHaler 18 mcg capsule, w/inhalation device 1 cap inhalation DAILY 90 Days Qty: 90 3RF allopurinol 100 mg tablet 100 mg PO DAILY Discontinued spironolactone 25 mg tablet 25 mg PO DAILY 90 Days Qty: 90 1RF metolazone 5 mg tablet 5 mg PO DAILY Discharge Orders: Discharge Order (Routine); Ordered 04/11/22 Ordered By: Markus Landers Diet: Advance to usual diet Activity on Discharge: As tolerated Stand Alone Forms: Patient Portal Discharge page Care Plan Goals: Stop metolazone at this time. Start Demadex 40 mg twice a day along with Aldactone 12.5 mg daily Health Concerns: Continue all other pre-hospital medication Plan of Treatment: Cardiology will call you to set up a time for your CardioMEMS device insertion Assessment: See discharge summary
[2022-04-11] MEDS: Rivaroxaban 15 MG TABLET PO (14:32)
== END 2022-04-11 15:25 | disposition home health service (06) | DRG 291 ==
LOC: HO.ED 11:32 → HO.EDOVER 14:31 → HO.IMC 04-06 17:17
PROVIDERS: Family Medicine; Nurse Practitioner Family; Physician Assistant Medical; Admitting Provider Hospitalist; Emergency Provider Emergency Medicine Emergency Medical Services; PCP Internal Medicine; Visit Provider Hospitalist
DX: I13.0 Hypertensive heart and chronic kidney disease with heart failure and stage 1 through stage 4 chronic kidney disease, or unspecified chronic kidney disease (principal); I50.33 Acute on chronic diastolic (congestive) heart failure; J96.11 Chronic respiratory failure with hypoxia; J96.12 Chronic respiratory failure with hypercapnia; L03.116 Cellulitis of left lower limb; L03.115 Cellulitis of right lower limb; I48.20 Chronic atrial fibrillation, unspecified; E87.3 Alkalosis; E11.22 Type 2 diabetes mellitus with diabetic chronic kidney disease; N18.30 Chronic kidney disease, stage 3 unspecified; I48.0 Paroxysmal atrial fibrillation; E11.40 Type 2 diabetes mellitus with diabetic neuropathy, unspecified; I07.1 Rheumatic tricuspid insufficiency; E11.65 Type 2 diabetes mellitus with hyperglycemia; I95.9 Hypotension, unspecified; E87.6 Hypokalemia; Z99.81 Dependence on supplemental oxygen; E78.5 Hyperlipidemia, unspecified; J44.9 Chronic obstructive pulmonary disease, unspecified; Z20.822 Contact with and (suspected) exposure to COVID-19; E66.01 Morbid (severe) obesity due to excess calories; Z68.38 Body mass index [BMI] 38.0-38.9, adult; Z87.891 Personal history of nicotine dependence; Z88.5 Allergy status to narcotic agent; Z79.4 Long term (current) use of insulin; Z79.01 Long term (current) use of anticoagulants; Z79.51 Long term (current) use of inhaled steroids; Z79.899 Other long term (current) drug therapy
CPT/HCPCS: 36415; 71046; 80048; 80053; 82803; 82947; 83735; 83880; 84484; 85025; 86140; 87040; 87635; 93005; 94660; 96374; 99285; J2543; J3475

== ENCOUNTER 2022-04-15 09:41 | Day surgery (SDC) | payer MEDICARE, BC, SELFPAY ==
[2022-04-15] VITALS (16 sets, daily range): BP systolic 83–134; BP diastolic 41–83; PULSE 92–110; RESP 16–29; TEMP 36.6–36.8; O2SAT 92–96; BMI 41.3
[2022-04-15 10:36] LABS: Glucose, Whole Blood 161 mg/dL (60-115)
[2022-04-15] MEDS: Lactated Ringers 1,000 ML 50 ML IVCONT (11:12)
[2022-04-15] MEDS: Albuterol Sulfate (0.083%) 2.5 MG/3 ML VIAL.NEB INHALE (11:22)
--- NOTE | 2022-04-15 11:30 | PC.NURSE ---
b/l lower leg swelling and redness pt sts better than when was admitted. resp given by resp ls diminished 0n 2 ln/c
--- NOTE | 2022-04-15 17:08 | W.PM.OPN ---
Operative Note Operative Note Date of Service: 04/15/22 Narrative: Procedure: CardioMEMS implantation. Indication: Congestive heart failure. We identified the patient and performed time-out. After this patient was given 0.5 mg of Versed and 25 mcg of fentanyl. We accessed the right common femoral vein using ultrasound guidance and placed a 5 [place] micropuncture sheath. We dilated with a 7 [place] dilator followed by a 10 [place] dilator and then placed 12 [place] sheath in the right femoral vein. We then advanced a 7 [place] [employer] [place] Марина catheter and measured pressures going up in right atrium, right ventricle, left pulmonary artery and pulmonary capillary wedge position. At this stage we performed left pulmonary angiogram to choose an appropriate site for CardioMEMS implantation. We wired with an 018 wire into 1 of the branches of left pulmonary artery. We walked back the [place]-Марина catheter and advanced the CardioMEMS delivery catheter over the 018 wire. When we were in appropriate position we deployed the CardioMEMS and confirmed that it was free from the delivery catheter and removed the delivery catheter. After this we advanced a [place] catheter over the 018 wire to the main pulmonary artery and removed the 018 wire. We measured pulmonary artery pressures and calibrated the device. Once we were satisfied with appropriate calibration of the device we removed the [place] scans catheter. The right femoral vein sheath was removed with manual compression with good hemostasis. Patient will be transferred to PACU for recovery. She will stay flat in bed for 2 hours and then the head and the bed will be raised to 30 degrees for 4 hours. Once she is stable and can get out of bed she will be sent back home. She was advised to resume her Xarelto tonight. Complications: None
[2022-04-15 21:02] LABS: Glucose, Whole Blood 200 mg/dL (60-115)
== END 2022-04-15 22:00 | disposition home or self-care (01) ==
PROVIDERS: PCP Internal Medicine; Visit Provider Internal Medicine Cardiovascular Disease
DX: I50.30 Unspecified diastolic (congestive) heart failure (principal); I11.0 Hypertensive heart disease with heart failure; E11.9 Type 2 diabetes mellitus without complications; I48.19 Other persistent atrial fibrillation; Z79.01 Long term (current) use of anticoagulants; Z79.4 Long term (current) use of insulin
CPT/HCPCS: 33289; 76937; 82947; 94640; 99152; 99153; C1769; C1887; C1894; C2624; J2250; J3010

== ENCOUNTER → 2022-04-22 09:37 | Outpatient (BNVA) | payer MEDICARE, BC, SELFPAY | PROVIDERS: PCP Internal Medicine; Referring Provider Internal Medicine; Visit Provider Internal Medicine Cardiovascular Disease | DX: I50.30 Unspecified diastolic (congestive) heart failure (principal); I48.20 Chronic atrial fibrillation, unspecified | CPT/HCPCS: 99212 ==

== ENCOUNTER → 2022-05-16 12:37 | Outpatient (BNVA) | payer MEDICARE, BC, SELFPAY | PROVIDERS: PCP Internal Medicine; Visit Provider Internal Medicine | DX: R00.1 Bradycardia, unspecified (principal); E78.5 Hyperlipidemia, unspecified; E11.22 Type 2 diabetes mellitus with diabetic chronic kidney disease; I12.9 Hypertensive chronic kidney disease with stage 1 through stage 4 chronic kidney disease, or unspecified chronic kidney disease; N18.9 Chronic kidney disease, unspecified | CPT/HCPCS: 82947; 99212 ==

== ENCOUNTER → 2022-06-27 09:38 | Outpatient (BNVA) | payer MEDICARE, BC, SELFPAY | PROVIDERS: PCP Internal Medicine; Referring Provider Internal Medicine; Visit Provider Internal Medicine Cardiovascular Disease | DX: I50.9 Heart failure, unspecified (principal); I48.20 Chronic atrial fibrillation, unspecified | CPT/HCPCS: 99212 ==

== ENCOUNTER 2022-07-04 09:52 | Inpatient (IN) | payer MEDICARE, BC, SELFPAY ==
--- NOTE | ~2022-07-04 | XR_ITS ---
EXAMINATION: XR CHEST CLINICAL INFORMATION: Shortness of breath. COMPARISON: 04/04/2022 chest radiographs. TECHNIQUE: Frontal view of the chest was obtained. FINDINGS: The lungs are clear. The heart is mildly enlarged. The mediastinal structures are unremarkable. XR/XR chest 1V IMPRESSION: Mild cardiomegaly. No acute cardiopulmonary process.
--- NOTE | ~2022-07-04 | XR_ITS ---
EXAMINATION: XR CHEST CLINICAL INFORMATION: Rolled lung bases. Evaluate for fluid or atelectasis. COMPARISON: Previous chest x-ray most recent 07/04/2022 TECHNIQUE: Frontal view of the chest was obtained. FINDINGS: The cardiac silhouette is enlarged but stable. Device projects over the left pulmonary hilum. Hilar and mediastinal contours are otherwise unremarkable. There is minimal subsegmental atelectasis at the left lung base. The lungs are otherwise clear. There is no pleural effusion or pneumothorax. There are degenerative changes of the spine. XR/XR chest 1V IMPRESSION: Stable enlargement of the cardiac silhouette. Subsegmental atelectasis at the left lung base.
--- NOTE | 2022-07-04 09:58 | ED_ITS ---
HPI - General Adult General Chief complaint: Dyspnea Stated complaint: diff breathing, water retention per EMS Time Seen by Provider: 07/04/22 09:58 Source: patient and EMS Mode of arrival: EMS Limitations: no limitations History of Present Illness HPI narrative: Patient is a 72 year old assigned female at with a history of DM, CHF, a- fib, and COPD presenting to the emergency department today with increased shortness of breath. Patient states that she has been having increased difficulty breathing even with her home o2 on. Patient denies any dizziness, lightheadedness, abdominal pain, nausea, vomiting, fever, chills, blurry vision, double vision, loss of vision, chest pain, back pain, night sweats, pain with urination, increased urinary frequency, increased urinary urgency, blood in her urine or stool, syncope or a near syncopal episode, recent trauma or falls, bowel incontinence, bladder incontinence, bowel retention, bladder retention, or any other complaints at this time. Onset (ago): day(s) Severity: moderate Severity scale (1-10): 4 Relieving factors: none Exacerbating factors: none Associated symptoms: shortness of breath Treatments prior to arrival: none Related Data Home Medications Medication Instructions Recorded Confirmed cholecalciferol (vitamin D3) 25 25 mcg PO DAILY 04/24/20 07/04/22 mcg (1,000 unit) capsule vitamin B complex 1 tab PO DAILY 04/24/20 07/04/22 zinc acetate 50 mg (zinc) capsule 50 mg PO DAILY 04/24/20 07/04/22 multivitamin 1 tab PO DAILY 06/13/20 07/04/22 ferrous sulfate 325 mg (65 mg 325 mg PO DAILY 09/14/20 07/04/22 iron) tablet (Feosol) docusate sodium 100 mg capsule 100 mg PO DAILY 05/31/21 07/04/22 (Colace) allopurinol 100 mg tablet 100 mg PO DAILY 09/24/21 07/04/22 dulaglutide 4.5 mg/0.5 mL 4.5 mg subcut TH@0900 04/04/22 07/04/22 subcutaneous pen injector (Trulicity) insulin aspart U-100 100 unit/mL 4 - 12 unit subcut TIDAC 06/05/22 07/04/22 (3 mL) subcutaneous pen (Novolog Flexpen U-100 Insulin aspart) bumetanide 1 mg tablet 2 tab PO BID 07/04/22 07/04/22 metolazone 2.5 mg tablet 5 mg PO MOTHSA 07/04/22 07/04/22 rivaroxaban 15 mg tablet (Xarelto) 1 tab PO DAILY 07/04/22 07/04/22 Previous Rx's Medication Instructions Recorded blood sugar diagnostic (OneTouch #100 ea 08/16/20 Ultra Blue Test Strip) lancets 33 gauge (OneTouch Delica #100 ea 01/01/21 Plus Lancet) flash glucose sensor (FreeStyle #2 ea 06/11/21 Santiago 14 Day Sensor kit) tiotropium bromide 18 mcg capsule 1 cap inhalation DAILY 90 days #90 10/26/21 with inhalation device (Spiriva caps with HandiHaler) albuterol sulfate 90 mcg/actuation 2 puff inhalation Q6H PRN 12/17/21 aerosol inhaler shortness of breath or wheezing #1 ea empagliflozin 10 mg tablet 10 mg PO DAILY #90 tabs 02/22/22 (Jardiance) potassium chloride 20 mEq 80 meq PO BID 30 days #240 tabs 04/02/22 tablet,extended release(part/cryst) spironolactone 25 mg tablet 12.5 mg PO DAILY #30 tabs 04/11/22 (Aldactone) pravastatin 20 mg tablet 20 mg PO BEDTIME #90 tabs 04/15/22 gabapentin 300 mg capsule 300 mg PO TID 90 days #270 caps 05/10/22 metoprolol tartrate 25 mg tablet 12.5 mg PO BID #30 tabs 05/31/22 Jonasaglsamantha Rojas U-100 Insulin 100 35 unit (0.35 mL) subcut DAILY 90 06/17/22 unit/mL (3 mL) subcutaneous days #31.5 mL (insulin glargine) pen needle, diabetic 32 gauge x #100 ea 06/24/22 (BD Ultra-Fine Linda Pen Needle) fluticasone 500 mcg-salmeterol 50 1 inh PO BID #180 grams 07/01/22 mcg/dose blistr powdr for inhalation (Advair Diskus) Allergies Allergy/AdvReac Type Severity Reaction Status Date / Time oxycodone [Percocet] Allergy Unknown nausea and Verified 07/04/22 10:02 vomiting Review of Systems Constitutional: Constitutional: Reports no additional constitutional complaints, Denies chills, Denies fever(s) and Denies night sweats Eyes: Eyes: Reports no additional eye complaints, Denies blurry vision, Denies change in vision, Denies diplopia, Denies eye discharge, Denies loss of vision and Denies eye pain ENT: Denies dizziness Cardiovascular: Cardiovascular: Reports no additional cardiovascular complaints, Denies chest pain, Denies lightheadedness, Denies Loss of Consciousness and Reports dyspnea Respiratory: Respiratory: Reports no additional respiratory complaints and Reports dyspnea Gastrointestinal: Gastrointestinal: Reports no additional gastrointestinal complaints, Denies abdominal pain, Denies melena, Denies hematochezia, Denies change in bowel habits and Denies change in stool character Genitourinary: Genitourinary: Denies hematuria, Denies urinary frequency, Denies dysuria, Denies urinary incontinence, Denies urinary hesitancy and Denies urinary urgency Musculoskeletal: Musculoskeletal: Reports no additional musculoskeletal complaints, Denies numbness and Denies tingling Neurologic: Denies dizziness, Denies loss of vision, Denies numbness and Denies tingling Psychiatric: Psychiatric: Reports no additional psychiatric complaints Endocrine: Endocrine: Reports no additional endocrine complaints Hematologic/Lymphatic: Hematologic/Lymphatic: Reports no additional hematologic/lymphatic complaints Allergic/Immunologic: Allergic/Immunologic: Reports no additional allergic/immunologic complaints [facility] Past Medical History Attestation statement: The following information was validated with the patient. 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 Mother No problems noted. Brother No problems noted. Son No problems noted. Other Substance use disorder Social History Social History Household Members: None Housing: House Do you presently have visiting nurse or other home services: Yes Unable to assess alcohol history related to: Unknown Alcohol intake: never Patient Tobacco Use Status: Former Tobacco user Smoked in Last 30 Days: No e-Cigarette/Vaping Use: Never Used Use of substances other than those prescribed or required for medical reasons: No Advance Directives: Yes Advance Directives Information Provided: Yes Advance Directives on File: No Advance Directives Date on File: 02/09/21 service: No Current occupational status: retired Cognitive needs: No Hearing needs: No Vision needs: Yes Physical Exam ED Vital Signs: Vital Signs - 24 hr 07/04/22 10:02 07/04/22 10:50 Temperature 97.7 F Pulse Rate 100 Respiratory Rate 22 H 20 Blood Pressure 123/68 Pulse Oximetry 83 L Oxygen Delivery Method Nasal Cannula BMI result Body Mass Index 47.7 Const General: cooperative, no acute distress, alert and awake Nutritional Appearance: well nourished Orientation/consciousness: patient oriented x3 Limitations: no limitations HENMT Head: Yes normal to inspection and Yes atraumatic Ears: hearing grossly normal bilaterally and external ears normal General nose exam: Normal external nose present, no nasal discharge noted and no epistaxis Face and sinus: Yes normal facial exam, No abrasion and No laceration Mouth: Normal oral and palatal mucosa present, no drooling and no muffled voice Eyes General: appearance normal, both eyes and all related structures Periorbital: periorbital findings normal Eyelids: Yes eyelids normal Conjunctivae: conjunctivae normal Pupils: Equal, round and reactive pupils present EOM: EOMs intact bilaterally Neck Neck: Yes normal visual inspection, Yes full ROM and Yes no lymphadenopathy Chest Chest palpation & inspection: normal inspection of the chest Resp Effort & Inspection: able to speak in complete sentences, labored and tachypneic Auscultation: crackles bilateral in the lower lung [place] Cardio Rate: regular rate Rhythm: abnormal rhythm irregularly irregular Heart sounds: S1 normal heart sound present and S2 normal heart sound present GI Inspection: Yes normal to inspection Palpation (GI): Soft to palpation, not firm, nontender and no guarding Neuro General: patient oriented x3 and moves all extremities Cranial nerves: Yes Equal, round and reactive pupils present Cognition (Neuro): normal cognition Motor exam (neuro): 5/5 motor strength present throughout Sensory Exam: Normal double simultaneous stimulation for sensation Coordination: [id number] test normal Extrem General: Yes full ROM and Yes capillary refill normal Right lower extremity: edema Details: 2+ Left lower extremity: edema Details: 2+ Psych Appearance: grossly normal Mental Status: mental status grossly normal Affect: normal affect Attitude: cooperative Thought process: Normal thought process present Thought content: Normal thought content present Insight: Good insight present (Psych) Medications Administered Generic Name Dose Route Start Last Admin Trade Name Freq PRN Reason Stop Dose Admin Gabapentin 300 mg 07/04/22 15:00 07/04/22 15:45 Gabapentin 300 Mg Capsule PO 300 mg TID SHILPA Administration Furosemide 200 mg/ Sodium 100 mls @ 2.5 mls/hr 07/04/22 15:00 07/04/22 15:45 Chloride IVCONT 5 mg/hr .Q24H SHILPA 2.5 mls/hr Administration 5 MG/HR Sodium Chloride 3 ml 07/04/22 16:00 07/04/22 15:46 0.9 % Sodium Chloride Flush 3 Ml Syringe IVFLUSH 3 ml QSHIFT SHILPA Administration Discontinued Medications Generic Name Dose Route Start Last Admin Trade Name Freq PRN Reason Stop Dose Admin Furosemide 40 mg 07/04/22 10:05 07/04/22 11:09 Furosemide 40 Mg/4 Ml Vial IVPUSH 07/04/22 10:06 40 mg ONCE ONE Administration Protocol Influenza Virus Vaccine 0.5 ml 07/04/22 14:38 07/04/22 15:44 Flu Vacc [id number](6mos Up)/Pf 0.5 Ml Syringe IM 07/04/22 14:39 0.5 ml .ONCE ONE Administration Medical Decision Making Medical Decision Making MDM Narrative: Patient is a 72 year old assigned female at with a history of DM, CHF, a- fib, and COPD on 2LPM of Oxygen at home at all times, presenting to the emergency department today with increased shortness of breath. Patient's physical exam showed a tachypnic individual with crackles in both lung bases. Patient's blood work showed an elevated BNP of 488 with an initially elevated Trop of 29.2. Patient's EKG showed a-fib. Patient's chest x-ray showed no acute process. Patient was initially placed on bipap at 12/6 for 1 hour and her work of breathing improved greatly. Patient was given 40mg of lasix. I spoke to the hospitalist team who agreed to admission. I explained my physical exam findings as well as all test results to the patient. I answered all questions asked by the patient. Patient verbalized agreement and understanding with this treatment plan and admission. Differential Diagnoses: Differential diagnosis Differential Diagnosis: CHF exacerbation, shortness of breath Discussion of management with other physician/healthcare provider/other source (e.g., hospitalist, system sales consultant, behavioral health): Discussion w/other physician/healthcare provider Management of the patient was discussed with: Hospitalist Agreed to admission. Lab Attestation: I reviewed the patient's lab results. Independent interpretation of EKG, rhythm strip, radiology study: Independent interp EKG,rhythm strip, radiology study I performed an independent interpretation of the: EKG Vent. Rate: 090 BPM ? ? Atrial Rate: 000 BPM P-R Int: 000 ms? QRS Dur: 094 ms QT Int: 414 ms ? ? ? P-R-T Axes: 000 007 020 degrees QTc Int: 506 ms ? Atrial fibrillation with premature ventricular or aberrantly conducted complexes Low voltage QRS Septal infarct , age undetermined Abnormal ECG When compared with ECG of 08-APR-2022 10:52, Septal infarct is now Present DD/ 1104 Discussion of test interpretation with radiology: Discussion of test interpretation with radiology This test interpretation was not discussed with radiology however, this is the radiologists interpretation per their written report. EXAMINATION: XR CHEST CLINICAL INFORMATION: Shortness of breath. COMPARISON: 04/04/2022 chest radiographs. TECHNIQUE: Frontal view of the chest was obtained. FINDINGS: The lungs are clear. The heart is mildly enlarged. The mediastinal structures are unremarkable. XR/XR chest 1V IMPRESSION: Mild cardiomegaly. No acute cardiopulmonary process. Dictated By: Steve Rehman MD Signed By: Electronically signed by Steve Rehman MD 07/04/22 [id number] Chronic conditions affecting care (e.g., diabetes, HTN): Chronic conditions affecting care (e.g., diabetes, HTN) Patient?s care impacted by: Diabetes Additional Comments: CHF Critical Care Time Critical Care Time Critical Care Time: Yes Total Critical Care Time: 30 Attestation: I spent 30 minutes of Critical Care Time with this patient. This does not include time spent on separately reported billable procedures. Discharge Plan Discharge Clinical Impression: CHF (congestive heart failure), Shortness of breath Patient Disposition: Admitted As Inpatient
[2022-07-04 10:02] VITALS: BP 123/68; BP 140/88; PULSE 100; PULSE 99; RESP 22; TEMP 36.5; O2SAT 83; O2SAT 89; BMI 47.7
--- NOTE | 2022-07-04 10:05 | ECG_ITS ---
Test Reason : shortness of breath Blood Pressure : / mmHG Vent. Rate : 090 BPM Atrial Rate : 000 BPM P-R Int : 000 ms QRS Dur : 094 ms QT Int : 414 ms P-R-T Axes : 000 007 020 degrees QTc Int : 506 ms Poor data quality Atrial fibrillation Low voltage QRS Septal infarct , age undetermined Abnormal ECG When compared with ECG of 08-APR-2022 10:52, Poor data quality in current ECG precludes serial comparison Referred By: Shelia Benitez Electronically Signed By:DEISI ROBINS MD
[2022-07-04 10:33] LABS: Venous Blood Gas Refer to POC result
[2022-07-04 10:33] LABS: VBG Base Excess 5.8 mmol/L; VBG HCO3 28 mmol/L (22-26); VBG pCO2 33 mmHg; VBG pH 7.52 (7.32-7.43); VBG pO2 56 mmHg
[2022-07-04 10:34] LABS: MANUAL DIFF FLAG NO
--- NOTE | 2022-07-04 10:39 | PHA.MEDREC ---
Pharmacy Consult ? Medication Reconciliation Pharmacy has completed the medication reconciliation. Patient had a med list at bedside.
[2022-07-04 10:43] LABS: Basophils Percent Auto 0.5 % (0-2); Eosinophils Absolute Auto 0.1 X10*3/uL (0.0-0.4); Eosinophils Percent Auto 1.3 % (0-4); Hematocrit 38.2 % (37.0-47.0); Hemoglobin 12.2 g/dl (12.0-16.0); Imm Gran Abs Auto 0.07 X10*3/uL (0.00-0.03); Imm Gran Pct Auto 0.8 % (0.0-0.4); Lymphocytes Absolute Auto 0.9 X10*3/uL (1.2-4.9); Lymphocytes Percent Auto 10.7 % (20-40); Mean Corpuscular HGB Conc 31.9 g/dl (31.0-35.0); Mean Corpuscular Volume 97.2 fL (80.0-98.0); Mean Platelet Volume 9.1 fL (9.4-12.3); Monocytes Absolute Auto 1.1 X10*3/uL (0.1-1.2); Monocytes Percent Auto 13.1 % (2-11); Neutrophils Absolute Auto 6.2 x10*3/uL (2.0-8.3); Neutrophils Percent Auto 73.6 % (45-73); Platelet Count 244 X10*3/uL (160-400); Red Blood Count 3.93 X10*6/uL (4.20-5.50); Red Cell Distribution Width 16.8 % (11.0-16.0); White Blood Count 8.5 X10*3/uL (4.8-10.8)
--- NOTE | 2022-07-04 10:47 | PC.NURSE ---
iv inserted, some labs drawn, shelter monitor applied, pure wick placed, pt moved to hospital bed, rt at bedside, tech attempting blood cultures, will medicate and continue to monitor
[2022-07-04 10:50] VITALS: RESP 20
[2022-07-04 10:51] LABS: Lactic Acid 1.6 mmol/L (0.5-2.0)
[2022-07-04 11:00] LABS: B Type Natriuretic Peptide 488 pg/mL (<100); Troponin-I High Sensitivity 29.2 ng/L (<3.5-17.0)
--- NOTE | 2022-07-04 11:08 | PC.NURSE ---
pt placed on bipap by rt earlier, 07/02- 40%
[2022-07-04] MEDS: Furosemide 40 MG/4 ML VIAL IVPUSH (11:09)
--- NOTE | 2022-07-04 11:10 | PC.NURSE ---
pt medicated with lasix per order
[2022-07-04 11:37] LABS: Influenza A PCR NEGATIVE (Negative); Influenza B PCR NEGATIVE (Negative); Resp Syncy Virus RNA Qual PCR NEGATIVE (Negative); SARS COV2 PCR INHOUSE NEGATIVE (Negative)
--- NOTE | 2022-07-04 11:46 | PC.NURSE ---
pt taken off bipap per her demand, rt notified will notify provider
[2022-07-04 12:41] LABS: Alanine Aminotransferase 17 U/L (0-31); Albumin Level 3.2 g/dL (3.5-5.0); Alkaline Phosphatase 119 U/L (39-117); Anion Gap 12 (12-20); Aspartate Amino Transferase 34 U/L (5-31); Bilirubin Total 1.1 mg/dL (0.0-1.0); Blood Urea Nitrogen 44 mg/dL (9-16); Calcium 8.6 mg/dL (8.4-10.2); Carbon Dioxide 33 mmol/L (22-29); Chloride 96 mmol/L (96-108); Creatinine Clr Calc Pharmacy 49.8; Estimated Glomerular Filt Rate 38; Glucose Random 117 mg/dL (60-115); Magnesium 2.6 mg/dL (1.6-2.6); Sodium 137 mmol/L (135-145); Total Protein 6.5 g/dL (6.5-8.0)
[2022-07-04 14:20] VITALS: BP 112/48; PULSE 92; RESP 18; TEMP 36.6; O2SAT 90
--- NOTE | 2022-07-04 14:55 | PM.IMHP ---
History of Present Illness Date of Service: 07/04/22 Attending physician on admission: Darrno [facility] Chief Complaint: Increasing peripheal edema Patient is a 72-year-old female with past medical history significant for diastolic heart failure, pulmonary hypertension, tricuspid valve regurgitation, AFib, COPD, HLD, and DM2 who presents to the ED with worsening edema over the past 2 weeks. Patient states that she has had worsening edema for the past 2 weeks despite increasing her home diuretics. She feels like her legs and abdomen feels ?heavy? and notes that she has gained over 40 lb since her last discharge from the hospital. Patient also has been experiencing increased shortness of breath with exertion. As of today she could hardly walk or move around. Patient denies dizziness, lightheadedness, chest pain/pressure, or palpitations. No abdominal pain or difficulty with bowel or bladder habits. Patient also requests a flu shot. Of note patient is well-known to the hospital and was last hospitalized on 04/04/2022 for similar complaints. In the ED patient was given furosemide 40 mg IV. Labs were significant for elevated BNP of 488 and slightly elevated troponin of 29.2. Chest x-ray showed mild cardiomegaly but no acute cardiopulmonary process. Patient will be admitted for management of acute heart failure with aggressive diuresing. 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 Mother No problems noted. Brother No problems noted. Son No problems noted. Other Substance use disorder Surgical History History of colectomy (~1983) History of colonoscopy History of hernia repair (~07/2011) History of hysteroscopy (~2007) History of left breast biopsy (~04/09/11) History of left inguinal hernia repair (~01/28/20) Social History Household Members: None Housing: House Do you presently have visiting nurse or other home services: Yes Unable to assess alcohol history related to: Unknown Alcohol intake: never Patient Tobacco Use Status: Former Tobacco user e-Cigarette/Vaping Use: Never Used Advance Directives Date on File: 02/09/21 service: No Current occupational status: retired Cognitive needs: No Hearing needs: No Vision needs: Yes Meds Allergies Allergy/AdvReac Type Severity Reaction Status Date / Time oxycodone [Percocet] Allergy Unknown nausea and Verified 07/04/22 10:02 vomiting Active Medications: Current Medications Acetaminophen (Acetaminophen 325 Mg Tablet) 650 mg PO Q6H PRN PRN Reason: Pain, Mild (Pain Scale 1-3) Docusate Sodium (Docusate Sodium 100 Mg Capsule) 100 mg PO DAILY PRN PRN Reason: Constipation Furosemide 200 mg/ Sodium (Chloride) 100 mls @ 2.5 mls/hr IVCONT .Q24H [facility] Metolazone (Metolazone 5 Mg Tablet) 5 mg PO DAILY [facility] Ondansetron HCl (Ondansetron Hcl 4 Mg/2 Ml Vial) 4 mg IVPUSH Q8H PRN PRN Reason: Nausea and Vomiting Pharmacy Consult (Consult Rx Perform Med Rec) 1 each MISCELLANE ONCE PRN PRN Reason: Consult order Sodium Chloride (0.9 % Sodium Chloride Flush 3 Ml Syringe) 3 ml IVFLUSH QSHIFT [facility] Home Medications Medication Instructions Recorded Confirmed Last Taken Type cholecalciferol (vitamin D3) 25 25 mcg PO DAILY 04/24/20 07/04/22 04/03/22 History mcg (1,000 unit) capsule vitamin B complex 1 tab PO DAILY 04/24/20 07/04/22 04/03/22 History zinc acetate 50 mg (zinc) capsule 50 mg PO DAILY 04/24/20 07/04/22 04/03/22 History multivitamin 1 tab PO DAILY 06/13/20 07/04/22 04/03/22 History ferrous sulfate 325 mg (65 mg 325 mg PO DAILY 09/14/20 07/04/22 04/03/22 History iron) tablet (Feosol) docusate sodium 100 mg capsule 100 mg PO DAILY 05/31/21 07/04/22 04/03/22 History (Colace) allopurinol 100 mg tablet 100 mg PO DAILY 09/24/21 07/04/22 04/03/22 History dulaglutide 4.5 mg/0.5 mL 4.5 mg subcut TH@0900 04/04/22 07/04/22 04/03/22 History subcutaneous pen injector (Trulicity) insulin aspart U-100 100 unit/mL 4 - 12 unit subcut TIDAC 06/05/22 07/04/22 Unknown History (3 mL) subcutaneous pen (Novolog Flexpen U-100 Insulin aspart) bumetanide 1 mg tablet 2 tab PO BID 07/04/22 07/04/22 Unknown History metolazone 2.5 mg tablet 5 mg PO MOTHSA 07/04/22 07/04/22 Unknown History rivaroxaban 15 mg tablet (Xarelto) 1 tab PO DAILY 07/04/22 07/04/22 Unknown History Physical Exam Vital Signs and Narrative: Vital Signs: Last Vital Signs Temp 97.7 F 07/04/22 10:02 Pulse 100 07/04/22 10:02 Resp 20 07/04/22 10:50 BP 123/68 07/04/22 10:02 Pulse Ox 83 L 07/04/22 10:02 O2 Del Method 07/04/22 10:02 Oxygen Flow Rate 2 07/04/22 10:02 BMI result Body Mass Index 47.7 Constitutional: Alert, in no acute distress. Speaking in full sentences Mental Status: Oriented to person, place and time. Eyes: Pupils are equal, round, and reactive to light. Ear, Nose, and Throat: Oropharynx clear, mucous membranes moist. Ears and nose without deformities. Trachea midline. Respiratory: Diffuse crackles bilaterally, especially in lower lung [place]. Cardiovascular: S1, S2 regular. No murmurs, rubs, or gallops. Gastrointestinal: Abdomen soft, non-tender, non-distended. Normal bowel sounds. Neurologic: Cranial nerves II-XI are grossly intact. No focal neurological deficits. Moves all extremities spontaneously. Musculoskeletal: No cyanosis or clubbing. Extremities: 3+ pitting edema in lower legs bilaterally. Symetrical bilateral lower leg erythema. Psychiatric: Normal mood and affect. Results Labs CBC and Chem 7: 07/04/22 10:23 07/05/22 06:19 Labs: Laboratory Results - last 24 hr 07/04/22 07/04/22 07/04/22 10:23 10:23 10:23 MCV 97.2 MCH 31.0 MCHC 31.9 RDW 16.8 H Plt Count 244 MPV 9.1 L Immature Gran % (Auto) 0.8 H Neut % (Auto) 73.6 H Lymph % (Auto) 10.7 L [place] % (Auto) 13.1 H Eos % (Auto) 1.3 Baso % (Auto) 0.5 Lymph # (Auto) 0.9 L [place] # (Auto) 1.1 Eos # (Auto) 0.1 Baso # (Auto) 0.0 Abs Immat Gran (auto) 0.07 H Absolute Neuts (auto) 6.2 Absolute Nucleated RBC 0.000 Nucleated RBC % (auto) 0.0 VBG pH VBG pCO2 VBG pO2 VBG HCO3 VBG O2 Saturation VBG Base Excess Anion Gap Estim Creat Clear Calc Estimated GFR Random Glucose Lactic Acid 1.6 Calcium Magnesium Total Bilirubin AST ALT Alkaline Phosphatase Troponin I High Sens 29.2 H B-Natriuretic Peptide Total Protein Albumin Influenza Type A (PCR) Influenza Type B (PCR) RSV RNA Qual (PCR) SARS-CoV-2 RNA (RT-PCR) 07/04/22 07/04/22 07/04/22 10:23 10:28 10:43 MCV MCH MCHC RDW Plt Count MPV Immature Gran % (Auto) Neut % (Auto) Lymph % (Auto) [place] % (Auto) Eos % (Auto) Baso % (Auto) Lymph # (Auto) [place] # (Auto) Eos # (Auto) Baso # (Auto) Abs Immat Gran (auto) Absolute Neuts (auto) Absolute Nucleated RBC Nucleated RBC % (auto) VBG pH 7.52 H VBG pCO2 33 VBG pO2 56 VBG HCO3 28 H VBG O2 Saturation 87.0 VBG Base Excess 5.8 Anion Gap Estim Creat Clear Calc Estimated GFR Random Glucose Lactic Acid Calcium Magnesium Total Bilirubin AST ALT Alkaline Phosphatase Troponin I High Sens B-Natriuretic Peptide 488 H Total Protein Albumin Influenza Type A (PCR) NEGATIVE Influenza Type B (PCR) NEGATIVE RSV RNA Qual (PCR) NEGATIVE SARS-CoV-2 RNA (RT-PCR) NEGATIVE 07/04/22 12:10 MCV MCH MCHC RDW Plt Count MPV Immature Gran % (Auto) Neut % (Auto) Lymph % (Auto) [place] % (Auto) Eos % (Auto) Baso % (Auto) Lymph # (Auto) [place] # (Auto) Eos # (Auto) Baso # (Auto) Abs Immat Gran (auto) Absolute Neuts (auto) Absolute Nucleated RBC Nucleated RBC % (auto) VBG pH VBG pCO2 VBG pO2 VBG HCO3 VBG O2 Saturation VBG Base Excess Anion Gap 12 Estim Creat Clear Calc 49.8 Estimated GFR 38 Random Glucose 117 H Lactic Acid Calcium 8.6 Magnesium 2.6 Total Bilirubin 1.1 H AST 34 H ALT 17 Alkaline Phosphatase 119 H Troponin I High Sens B-Natriuretic Peptide Total Protein 6.5 Albumin 3.2 L Influenza Type A (PCR) Influenza Type B (PCR) RSV RNA Qual (PCR) SARS-CoV-2 RNA (RT-PCR) Imaging Radiologist's Impressions: Impressions Chest X-Ray 07/04/22 10:55 IMPRESSION: Mild cardiomegaly. No acute cardiopulmonary process. Assessment and Plan (1) Decompensated heart failure: Status: Acute (2) Chronic atrial fibrillation: Status: Acute Plan Patient is a 72-year-old female with past medical history significant for diastolic heart failure, pulmonary hypertension, tricuspid valve regurgitation, AFib, COPD, HLD, and DM2 who presents to the ED with worsening edema over the past 2 weeks. She will be admitted for acute exacerbation of heart failure and be treated with aggressive diuresising. # acute CHF exacerbation -- patient has gained 40+ lb in the past few weeks -- aggressive diuresing: Furosemide IV 5/hr, metolazone 5 mg p.o. daily, continue spironolactone -- continue Jardiance -- continue potassium chloride supplementation -- follow lytes, mg -- cardiology consult # DM2 -- hold home meds except for Jardiance -- ssi, lantus # HTN -- continue home meds # CKD3 -- at baseline, 1.37 -- follow creatinine Full code Attending: Dr. Walsh DVT prophylaxis: Lovenox Due to patient's need for aggressive IV diuretics for acute CHF, patient will require a hospital stay of at least 2 nights. Quality Stroke Does the patient have a stroke diagnosis?: No VTE Prior VTE?: No VTE Risk Level:: Medical - moderate - high VTE Device Contraindication: Treatment Not Indicated VTE Drug Contraindication: N/A - Med Ordered
[2022-07-04] MEDS: Gabapentin 300 MG CAPSULE PO ×2 (15:45→22:26)
[2022-07-04] MEDS: Furosemide 200 MG in 0.9 % Sodium Chloride 80 ML IVCONT (15:45)
[2022-07-04] MEDS: 0.9 % Sodium Chloride Flush 3 ML SYRINGE IVFLUSH (15:46)
--- NOTE | 2022-07-04 15:55 | PC.NURSE ---
pt medicated per order, pharmacy will be called for missing meds
--- NOTE | 2022-07-04 15:59 | PC.NURSE ---
patient a&ox3, telemetry monitor afib, vitals stable, pure wick intact/draining, call prince within reach, will continue to monitor
--- NOTE | 2022-07-04 16:04 | PC.NURSE ---
pharmacy called for missing medication and to change xarelto order
[2022-07-04 16:06] LABS: Troponin-I High Sensitivity 24.3 ng/L (<3.5-17.0)
--- NOTE | 2022-07-04 16:21 | PC.NURSE ---
per provider katja dang, pt is allowed to check her own blood sugar with her monitor- tech notified as well
--- NOTE | 2022-07-04 16:51 | PC.NURSE ---
THIS PCT ASSUMED CARE OF PT AT 1500 ,PT WAS CHECK DURING ROUNDING ,AND WAS INCONTINENT OF URINE ,BED BATH GIVEN AND COMPLETE BED CHANGE DONE ,NEW PUREWICK IN PLACE AND WARM BLANKET GIVEN .
[2022-07-04 16:54] VITALS: BP 112/48; PULSE 88; RESP 20; TEMP 36.6; O2SAT 90
[2022-07-04 17:10] LABS: Appearance Urine Clear; Color Urine Yellow; Glucose Urine UA 250 mg/dL (Negative); Leukocyte Esterase Urine Negative (Negative); Nitrite Urine Negative (Negative); Urine Blood Negative (Negative); Urine Ketones Negative (Negative); Urine Protein Negative (Neg-Trace)
[2022-07-04] MEDS: metOLazone 5 MG TABLET PO (17:38)
[2022-07-04] MEDS: Rivaroxaban 15 MG TABLET PO (17:38)
--- NOTE | 2022-07-04 22:02 | MHC.CM.PN ---
IMM 07/04. Lives alone. Has [facility] and [facility]. 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 Uses a walker. Has Home Oxygen @2L and has a BiPap. Received J&J and Booster x1. HCP on file. HCP/son Tino Little ([phone]). D/C plan: Home with existing services. Referral to [facility] to follow. CM will follow for d/c planning.
[2022-07-04] MEDS: Potassium Chloride ER 20 MEQ TAB.ER.PRT 80 MEQ PO (22:25)
[2022-07-04] MEDS: Pravastatin Sodium 20 MG TABLET PO (22:26)
[2022-07-04] MEDS: Metoprolol Tartrate 12.5 MG HALFTAB PO (22:27)
[2022-07-04 22:28] VITALS: BP 143/70; PULSE 103; RESP 20; O2SAT 96
--- NOTE | 2022-07-04 23:42 | PC.NURSE ---
Pt placed on BiPAP by respiratory to sleep per request as pt does this at home.
[2022-07-04 23:50] VITALS: RESP 20
[2022-07-05] VITALS (7 sets, daily range): BP systolic 117–127; BP diastolic 60–92; PULSE 78–127; RESP 17–20; TEMP 36.5–36.8; O2SAT 90–97
--- NOTE | 2022-07-05 03:14 | PC.NURSE ---
Patient sleeping. No apparent distress.
--- NOTE | 2022-07-05 06:05 | PC.NURSE ---
Pt cleaned and changed, linen changed. Pt taken off BiPAP per request
[2022-07-05 07:25] LABS: Glucose, Whole Blood 139 mg/dL (60-115)
[2022-07-05 07:41] LABS: Magnesium 2.5 mg/dL (1.6-2.6)
[2022-07-05] MEDS: Ferrous Sulfate 324 MG TABLET.DR PO (08:23)
[2022-07-05] MEDS: Empagliflozin 10 MG TABLET PO (08:23)
[2022-07-05] MEDS: allopurinoL 100 MG TABLET PO (08:23)
[2022-07-05 08:24] LABS: Anion Gap 13 (12-20); Blood Urea Nitrogen 41 mg/dL (9-16); Calcium 8.9 mg/dL (8.4-10.2); Carbon Dioxide 37 mmol/L (22-29); Chloride 93 mmol/L (96-108); Estimated Glomerular Filt Rate 35; Glucose Random 147 mg/dL (60-115); Potassium 3.1 mmol/L (3.3-5.1); Sodium 140 mmol/L (135-145)
[2022-07-05] MEDS: Spironolactone 25 MG TABLET 12.5 MG PO (08:24)
[2022-07-05] MEDS: Gabapentin 300 MG CAPSULE PO ×3 (08:25→20:45)
[2022-07-05] MEDS: Metoprolol Tartrate 12.5 MG HALFTAB PO ×2 (08:25→20:45)
[2022-07-05] MEDS: Cholecalciferol (Vitamin D3) 25 MCG TABLET PO (08:25)
[2022-07-05] MEDS: Multivitamin TABLET 1 TAB PO (08:25)
[2022-07-05] MEDS: Fluticasone/Vilanterol 200/25 BLST.W.DEV 1 PUFF INHALE (08:26)
[2022-07-05] MEDS: Insulin Glargine,Hum.rec.anlog 100 UNIT/ML 10 ML VIAL 25 UNIT SUBCUT (08:26)
[2022-07-05] MEDS: Docusate Sodium 100 MG CAPSULE PO (08:26)
--- NOTE | 2022-07-05 10:05 | HO.PM.IMPN ---
Subjective Subjective Date of Service: 07/05/22 Interval History: Pt seen for f/u for worsening edema secondary to CHF exacerbation. Interval history: Pt reports no acute concerns over night. Feeling better than yesterday, can feel the weight coming off. No chest pain/pressure, no palpitations. Chronic SOB that has improved and almost feels like baseline. Occasional non-productive cough, especially in the morning. Review of Systems SOB, improved Occasional non-productive cough No chest pain/pressure, palpitaitons. Physical Exam Vital Signs: Vital Signs: Last Vital Signs Temp 98.2 F 07/05/22 07:46 Pulse 127 H 07/05/22 07:46 Resp 18 07/05/22 07:46 BP 125/60 07/05/22 07:46 Pulse Ox 92 07/05/22 07:46 O2 Del Method 07/05/22 07:46 O2 Flow Rate 4 07/05/22 07:46 Oxygen Flow Rate 2 07/04/22 10:02 BMI result Body Mass Index 47.7 General: AOx3, no acute distress Resp: Diffuse crackles in lower lung [place] CVS: S1, S2, RRR GI: +BS, NT, no distention Neuro: Motor grossly intact Extremities: 2+ pitting edema in lower legs bilaterally. Symmetrical lower leg erythema Psych: Appropriate affect Objective Data Active Medications Acetaminophen (Acetaminophen 325 Mg Tablet) 650 mg PO Q6H PRN PRN Reason: Pain, Mild (Pain Scale 1-3) Albuterol Sulfate (Albuterol Sulfate 90 Mcg 8 Gm Inhaler) 2 puff INHALE Q6H PRN PRN Reason: shortness of breath or wheezing Allopurinol (Allopurinol 100 Mg Tablet) 100 mg PO DAILY [facility] Last Admin: 07/05/22 08:23 Dose: 100 mg Documented By: SYMONE Docusate Sodium (Docusate Sodium 100 Mg Capsule) 100 mg PO DAILY PRN PRN Reason: Constipation Docusate Sodium (Docusate Sodium 100 Mg Capsule) 100 mg PO DAILY [facility] Last Admin: 07/05/22 08:26 Dose: 100 mg Documented By: SYMONE Empagliflozin (Empagliflozin 10 Mg Tablet) 10 mg PO DAILY [facility] Last Admin: 07/05/22 08:23 Dose: 10 mg Documented By: SYMONE Ferrous Sulfate (Ferrous Sulfate 324 Mg Tablet.) 324 mg PO DAILY [facility] Last Admin: 07/05/22 08:23 Dose: 324 mg Documented By: SYMONE Fluticasone/Vilanterol (Fluticasone/Vilanterol 200/25 Blst.W.Dev) 1 puff INHALE RDAILY [facility] Last Admin: 07/05/22 08:26 Dose: 1 puff Documented By: SYMONE Gabapentin (Gabapentin 300 Mg Capsule) 300 mg PO TID [facility] Last Admin: 07/05/22 08:25 Dose: 300 mg Documented By: SYMONE Furosemide 200 mg/ Sodium (Chloride) 100 mls @ 2.5 mls/hr IVCONT .Q24H [facility] Last Admin: 07/04/22 15:45 Dose: 5 mg/hr, 2.5 mls/hr Documented By: NAIN Insulin Glargine (Insulin Glargine,Hum.Rec.Anlog 100 Unit/Ml 10 Ml Vial) 25 unit SUBCUT DAILY [facility] Last Admin: 07/05/22 08:26 Dose: 25 unit Documented By: SYMONE Metoprolol Tartrate (Metoprolol Tartrate 12.5 Mg Halftab) 12.5 mg PO BID [facility]; Protocol Last Admin: 07/05/22 08:25 Dose: 12.5 mg Documented By: SYMONE Multivitamins/Vitamin C (Multivitamin Tablet) 1 tab PO DAILY [facility] Last Admin: 07/05/22 08:25 Dose: 1 tab Documented By: SYMONE Ondansetron HCl (Ondansetron Hcl 4 Mg/2 Ml Vial) 4 mg IVPUSH Q8H PRN PRN Reason: Nausea and Vomiting Pharmacy Consult (Consult Rx Perform Med Rec) 1 each MISCELLANE ONCE PRN PRN Reason: Consult order Potassium Chloride (Potassium Chloride Er 20 Meq Tab.Er.Prt) 80 meq PO BID [facility] Last Admin: 07/04/22 22:25 Dose: 80 meq Documented By: OMAIRA Pravastatin Sodium (Pravastatin Sodium 20 Mg Tablet) 20 mg PO BEDTIME [facility] Last Admin: 07/04/22 22:26 Dose: 20 mg Documented By: OMAIRA Psyllium Hydrophilic Mucilloid (Psyllium Seed 3.4 Gm Powd.Pack) 3.4 gm PO DAILY [facility] Rivaroxaban (Rivaroxaban 15 Mg Tablet) 15 mg PO DAILY@1700 [facility] Last Admin: 07/04/22 17:38 Dose: 15 mg Documented By: NAIN Sodium Chloride (0.9 % Sodium Chloride Flush 3 Ml Syringe) 3 ml IVFLUSH QSHIFT [facility] Last Admin: 07/05/22 07:10 Dose: Not Given Documented By: SYMONE Non-Admin Reason: IV Running Spironolactone (Spironolactone 25 Mg Tablet) 12.5 mg PO DAILY [facility]; Protocol Last Admin: 07/05/22 08:24 Dose: 12.5 mg Documented By: SYMONE Tiotropium [place] (Tiotropium [place] 18 Mcg Cap.W.Dev) 1 puff INHALE RDAILY [facility] Last Admin: 07/05/22 08:32 Dose: 1 puff Documented By: SYMONE Vitamin D (Cholecalciferol (Vitamin D3) 25 Mcg Tablet) 25 mcg PO DAILY [facility] Last Admin: 07/05/22 08:25 Dose: 25 mcg Documented By: SYMONE Zinc Sulfate (Zinc Sulfate 220 Mg Capsule) 220 mg PO DAILY [facility] Labs CBC & Chem 7: 07/04/22 10:23 07/05/22 06:19 Labs: Laboratory Results - last 24 hr 07/04/22 07/04/22 07/04/22 10:23 10:23 10:23 MCV 97.2 MCH 31.0 MCHC 31.9 RDW 16.8 H Plt Count 244 MPV 9.1 L Immature Gran % (Auto) 0.8 H Neut % (Auto) 73.6 H Lymph % (Auto) 10.7 L [place] % (Auto) 13.1 H Eos % (Auto) 1.3 Baso % (Auto) 0.5 Lymph # (Auto) 0.9 L [place] # (Auto) 1.1 Eos # (Auto) 0.1 Baso # (Auto) 0.0 Abs Immat Gran (auto) 0.07 H Absolute Neuts (auto) 6.2 Absolute Nucleated RBC 0.000 Nucleated RBC % (auto) 0.0 VBG pH VBG pCO2 VBG pO2 VBG HCO3 VBG O2 Saturation VBG Base Excess Anion Gap Estim Creat Clear Calc Estimated GFR POC Glucose Random Glucose Lactic Acid 1.6 Calcium Magnesium Total Bilirubin AST ALT Alkaline Phosphatase Troponin I High Sens 29.2 H B-Natriuretic Peptide Total Protein Albumin Urine Color Urine Appearance Urine pH Ur Specific [place] Urine Protein Urine Glucose (UA) Urine Ketones Urine Blood Urine Nitrite Ur Leukocyte Esterase Influenza Type A (PCR) Influenza Type B (PCR) RSV RNA Qual (PCR) SARS-CoV-2 RNA (RT-PCR) 07/04/22 07/04/22 07/04/22 10:23 10:28 10:43 MCV MCH MCHC RDW Plt Count MPV Immature Gran % (Auto) Neut % (Auto) Lymph % (Auto) [place] % (Auto) Eos % (Auto) Baso % (Auto) Lymph # (Auto) [place] # (Auto) Eos # (Auto) Baso # (Auto) Abs Immat Gran (auto) Absolute Neuts (auto) Absolute Nucleated RBC Nucleated RBC % (auto) VBG pH 7.52 H VBG pCO2 33 VBG pO2 56 VBG HCO3 28 H VBG O2 Saturation 87.0 VBG Base Excess 5.8 Anion Gap Estim Creat Clear Calc Estimated GFR POC Glucose Random Glucose Lactic Acid Calcium Magnesium Total Bilirubin AST ALT Alkaline Phosphatase Troponin I High Sens B-Natriuretic Peptide 488 H Total Protein Albumin Urine Color Urine Appearance Urine pH Ur Specific [place] Urine Protein Urine Glucose (UA) Urine Ketones Urine Blood Urine Nitrite Ur Leukocyte Esterase Influenza Type A (PCR) NEGATIVE Influenza Type B (PCR) NEGATIVE RSV RNA Qual (PCR) NEGATIVE SARS-CoV-2 RNA (RT-PCR) NEGATIVE 07/04/22 07/04/22 07/04/22 12:10 15:32 16:55 MCV MCH MCHC RDW Plt Count MPV Immature Gran % (Auto) Neut % (Auto) Lymph % (Auto) [place] % (Auto) Eos % (Auto) Baso % (Auto) Lymph # (Auto) [place] # (Auto) Eos # (Auto) Baso # (Auto) Abs Immat Gran (auto) Absolute Neuts (auto) Absolute Nucleated RBC Nucleated RBC % (auto) VBG pH VBG pCO2 VBG pO2 VBG HCO3 VBG O2 Saturation VBG Base Excess Anion Gap 12 Estim Creat Clear Calc 49.8 Estimated GFR 38 POC Glucose Random Glucose 117 H Lactic Acid Calcium 8.6 Magnesium 2.6 Total Bilirubin 1.1 H AST 34 H ALT 17 Alkaline Phosphatase 119 H Troponin I High Sens 24.3 H B-Natriuretic Peptide Total Protein 6.5 Albumin 3.2 L Urine Color Yellow Urine Appearance Clear Urine pH 6.0 Ur Specific [place] 1.010 Urine Protein Negative Urine Glucose (UA) 250 H Urine Ketones Negative Urine Blood Negative Urine Nitrite Negative Ur Leukocyte Esterase Negative Influenza Type A (PCR) Influenza Type B (PCR) RSV RNA Qual (PCR) SARS-CoV-2 RNA (RT-PCR) 07/05/22 07/05/22 07/05/22 06:19 06:19 07:10 MCV MCH MCHC RDW Plt Count MPV Immature Gran % (Auto) Neut % (Auto) Lymph % (Auto) [place] % (Auto) Eos % (Auto) Baso % (Auto) Lymph # (Auto) [place] # (Auto) Eos # (Auto) Baso # (Auto) Abs Immat Gran (auto) Absolute Neuts (auto) Absolute Nucleated RBC Nucleated RBC % (auto) VBG pH VBG pCO2 VBG pO2 VBG HCO3 VBG O2 Saturation VBG Base Excess Anion Gap 13 Estim Creat Clear Calc 47.0 Estimated GFR 35 POC Glucose 139 H Random Glucose 147 H Lactic Acid Calcium 8.9 Magnesium 2.5 Total Bilirubin AST ALT Alkaline Phosphatase Troponin I High Sens B-Natriuretic Peptide Total Protein Albumin Urine Color Urine Appearance Urine pH Ur Specific [place] Urine Protein Urine Glucose (UA) Urine Ketones Urine Blood Urine Nitrite Ur Leukocyte Esterase Influenza Type A (PCR) Influenza Type B (PCR) RSV RNA Qual (PCR) SARS-CoV-2 RNA (RT-PCR) Assessment and Plan (1) CHF (congestive heart failure): Status: Acute (2) Shortness of breath: Status: Acute (3) Edema: Status: Acute Plan Patient is a 72-year-old female with past medical history significant for diastolic heart failure, pulmonary hypertension, tricuspid valve regurgitation, AFib, COPD, HLD, and DM2 who presents to the ED with worsening edema over the past 2 weeks.?She was admitted for acute exacerbation of heart failure and treated with aggressive diuresising. # acute CHF exacerbation -- patient has gained 40+ lb in the past few weeks -- net output overnight: -2,353 mL -- potassium decreased to 3.1 from 4.0. -- stop continuous diuretics and change to furosemide IV 40mg bid, hold metolazone -- continue spironolactone, Jardiance -- continue home potassium chloride supplementation, add 40 meq x1 and recheck lytes -- follow lytes, mg, I/O -- cardiology consult # DM2 -- hold home meds except for Jardiance -- pt has a continuous glucose monitor which is good until next Friday. Please use instead of finger sticks -- ssi, lantus # HTN -- continue home meds # CKD3 -- at baseline, 1.37 -- follow creatinine Full code Attending:? Dr. Walsh DVT prophylaxis: Lovenox Due to patient's need for aggressive IV diuretics for acute CHF, patient will require continued hospitalization. Quality Stroke Does the patient have a stroke diagnosis?: No VTE Prior VTE?: No VTE Risk Level:: Medical - moderate - high VTE Device Contraindication: Treatment Not Indicated VTE Drug Contraindication: N/A - Med Ordered
--- NOTE | 2022-07-05 10:24 | P.CONCA_ITS ---
History of Present Illness History of Present Illness Date of Service: 07/05/22 Requesting physician: [facility] Consult reason: congestive heart failure Chief complaint: Increasing Edema Narrative: I was consulted to see Ragini in cardiology consultation today with advanced congestive heart failure, diastolic with predominant right heart failure features. I had seen her in the office about a week ago where she had about 30 lb weight gain and was having trouble breathing and had significant leg edema not responding to oral diuretics. I recommended her to get admitted at that time but she said she could not get admitted because she had to take care of some business at home. She comes to the hospital with increasing leg edema and poor diuretic response increasing shortness of breath and abdominal distension. Her baseline dry weight is about 235 lb. She since yesterday has been diuresed on Lasix drip and has had a good diuretic response with about negative balance listed at about 2400 cc. She says she feels much better with her abdominal distension and leg edema is improving. She continues to be short of breath. Patient had a CardioMEMS device installed however she is not able to monitor herself on a daily bases because she does not have help at home and she cannot do it by herself. This is a big issue. We had discussed this in the office visit and consideration for placement in halfway facility was discussed. She is not ready to discuss that at this point in time. Her last measured pulmonary mean pressures were 29 mmHg that was on 07/02 which is significantly elevated compared to her goal of 22. On admission a BNP is only marginally further elevated. Her creatinine is up at 1.45. She still does not understand the management of heart failure well. Remains in atrial fibrillation which is chronic rate is slightly elevated. She denies any palpitations or lightheadedness. She is overall very frustrated with her advancing heart failure syndrome. Review of Systems Constitutional: Constitutional: Reports no additional constitutional complaints Cardiovascular: Cardiovascular: Reports Abdominal Distension, Denies chest pain, Denies rapid heart rate, Reports leg edema, Denies lightheadedness, Denies Loss of Consciousness, Denies palpitations and Reports dyspnea Respiratory: Respiratory: Denies no additional respiratory complaints and Reports dyspnea Gastrointestinal: Gastrointestinal: Denies no additional gastrointestinal complaints Genitourinary: Genitourinary: Denies no additional female genitourinary complaints Musculoskeletal: Musculoskeletal: Reports no additional musculoskeletal complaints Integumentary/Breasts: Skin/Breast: Reports system reviewed and no additional complaints, except as docu Neurologic: Reports system reviewed and no additional complaints, except as documented Psychiatric: Psychiatric: Reports no additional psychiatric complaints Endocrine: Endocrine: Denies palpitations PMFSH Past Medical History Medical History (HFpEF) heart failure with preserved ejection fraction Bradycardia CHF exacerbation CKD (chronic kidney disease) Congestive heart failure Congestive heart failure (CHF) COPD (chronic obstructive pulmonary disease) Diabetes mellitus HLD (hyperlipidemia) HTN (hypertension) 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 Mother No problems noted. Brother No problems noted. Son No problems noted. Other Substance use disorder Surgical History Surgical History History of colectomy (~1983) History of colonoscopy History of hernia repair (~07/2011) History of hysteroscopy (~2007) History of left breast biopsy (~04/09/11) History of left inguinal hernia repair (~01/28/20) Social History Social History Household Members: None Housing: House Do you presently have visiting nurse or other home services: Yes Unable to assess alcohol history related to: Unknown Alcohol intake: never Patient Tobacco Use Status: Former Tobacco user Smoked in Last 30 Days: No e-Cigarette/Vaping Use: Never Used Use of substances other than those prescribed or required for medical reasons: No Advance Directives: Yes Advance Directives Information Provided: Yes Advance Directives on File: No Advance Directives Date on File: 02/09/21 service: No Current occupational status: retired Cognitive needs: No Hearing needs: No Vision needs: Yes Meds Allergies Allergy/AdvReac Type Severity Reaction Status Date / Time oxycodone [Percocet] Allergy Unknown nausea and Verified 07/04/22 10:02 vomiting Active Medications: Current Medications Acetaminophen (Acetaminophen 325 Mg Tablet) 650 mg PO Q6H PRN PRN Reason: Pain, Mild (Pain Scale 1-3) Albuterol Sulfate (Albuterol Sulfate 90 Mcg 8 Gm Inhaler) 2 puff INHALE Q6H PRN PRN Reason: shortness of breath or wheezing Allopurinol (Allopurinol 100 Mg Tablet) 100 mg PO DAILY [facility] Last Admin: 07/05/22 08:23 Dose: 100 mg Docusate Sodium (Docusate Sodium 100 Mg Capsule) 100 mg PO DAILY PRN PRN Reason: Constipation Docusate Sodium (Docusate Sodium 100 Mg Capsule) 100 mg PO DAILY [facility] Last Admin: 07/05/22 08:26 Dose: 100 mg Empagliflozin (Empagliflozin 10 Mg Tablet) 10 mg PO DAILY [facility] Last Admin: 07/05/22 08:23 Dose: 10 mg Ferrous Sulfate (Ferrous Sulfate 324 Mg Tablet.Dr) 324 mg PO DAILY [facility] Last Admin: 07/05/22 08:23 Dose: 324 mg Fluticasone/Vilanterol (Fluticasone/Vilanterol 200/25 Blst.W.Dev) 1 puff INHALE RDAILY [facility] Last Admin: 07/05/22 08:26 Dose: 1 puff Gabapentin (Gabapentin 300 Mg Capsule) 300 mg PO TID [facility] Last Admin: 07/05/22 08:25 Dose: 300 mg Insulin Glargine (Insulin Glargine,Hum.Rec.Anlog 100 Unit/Ml 10 Ml Vial) 25 unit SUBCUT DAILY [facility] Last Admin: 07/05/22 08:26 Dose: 25 unit Metoprolol Tartrate (Metoprolol Tartrate 12.5 Mg Halftab) 12.5 mg PO BID [facility]; Protocol Last Admin: 07/05/22 08:25 Dose: 12.5 mg Multivitamins/Vitamin C (Multivitamin Tablet) 1 tab PO DAILY [facility] Last Admin: 07/05/22 08:25 Dose: 1 tab Ondansetron HCl (Ondansetron Hcl 4 Mg/2 Ml Vial) 4 mg IVPUSH Q8H PRN PRN Reason: Nausea and Vomiting Pharmacy Consult (Consult Rx Perform Med Rec) 1 each MISCELLANE ONCE PRN PRN Reason: Consult order Potassium Chloride (Potassium Chloride Er 20 Meq Tab.Er.Prt) 80 meq PO BID [facility] Last Admin: 07/04/22 22:25 Dose: 80 meq Pravastatin Sodium (Pravastatin Sodium 20 Mg Tablet) 20 mg PO BEDTIME [facility] Last Admin: 07/04/22 22:26 Dose: 20 mg Psyllium Hydrophilic Mucilloid (Psyllium Seed 3.4 Gm Powd.Pack) 3.4 gm PO DAILY [facility] Rivaroxaban (Rivaroxaban 15 Mg Tablet) 15 mg PO DAILY@1700 [facility] Last Admin: 07/04/22 17:38 Dose: 15 mg Sodium Chloride (0.9 % Sodium Chloride Flush 3 Ml Syringe) 3 ml IVFLUSH QSHIFT [facility] Last Admin: 07/05/22 07:10 Dose: Not Given Spironolactone (Spironolactone 25 Mg Tablet) 12.5 mg PO DAILY [facility]; Protocol Last Admin: 07/05/22 08:24 Dose: 12.5 mg Tiotropium [place] (Tiotropium [place] 18 Mcg Cap.W.Dev) 1 puff INHALE RDAILY [facility] Last Admin: 07/05/22 08:32 Dose: 1 puff Vitamin D (Cholecalciferol (Vitamin D3) 25 Mcg Tablet) 25 mcg PO DAILY [facility] Last Admin: 07/05/22 08:25 Dose: 25 mcg Zinc Sulfate (Zinc Sulfate 220 Mg Capsule) 220 mg PO DAILY [facility] Home Medications Medication Instructions Recorded Confirmed Last Taken Type cholecalciferol (vitamin D3) 25 25 mcg PO DAILY 04/24/20 07/04/22 04/03/22 History mcg (1,000 unit) capsule vitamin B complex 1 tab PO DAILY 04/24/20 07/04/22 04/03/22 History zinc acetate 50 mg (zinc) capsule 50 mg PO DAILY 04/24/20 07/04/22 04/03/22 History multivitamin 1 tab PO DAILY 06/13/20 07/04/22 04/03/22 History ferrous sulfate 325 mg (65 mg 325 mg PO DAILY 09/14/20 07/04/22 04/03/22 History iron) tablet (Feosol) docusate sodium 100 mg capsule 100 mg PO DAILY 05/31/21 07/04/22 04/03/22 History (Colace) allopurinol 100 mg tablet 100 mg PO DAILY 09/24/21 07/04/22 04/03/22 History dulaglutide 4.5 mg/0.5 mL 4.5 mg subcut TH@0900 04/04/22 07/04/22 04/03/22 History subcutaneous pen injector (Trulicity) insulin aspart U-100 100 unit/mL 4 - 12 unit subcut TIDAC 06/05/22 07/04/22 Unknown History (3 mL) subcutaneous pen (Novolog Flexpen U-100 Insulin aspart) bumetanide 1 mg tablet 2 tab PO BID 07/04/22 07/04/22 Unknown History metolazone 2.5 mg tablet 5 mg PO MOTHSA 07/04/22 07/04/22 Unknown History rivaroxaban 15 mg tablet (Xarelto) 1 tab PO DAILY 07/04/22 07/04/22 Unknown History Physical Exam Vital Signs: Vital Signs: Last Vital Signs Temp 98.2 F 07/05/22 07:46 Pulse 127 H 07/05/22 07:46 Resp 18 07/05/22 07:46 BP 125/60 07/05/22 07:46 Pulse Ox 92 07/05/22 07:46 O2 Del Method 07/05/22 07:46 O2 Flow Rate 4 07/05/22 07:46 Oxygen Flow Rate 2 07/04/22 10:02 BMI result Body Mass Index 47.7 Const: General: cooperative and in distress moderate and respiratory Nutritional Appearance: obese Orientation/consciousness: patient oriented x3 Limitations: no limitations HEENT: Head: Yes normocephalic and Yes atraumatic Neck: Neck: Yes trachea midline, Yes supple and Yes JVD Resp: Effort & Inspection: normal respiratory effort Auscultation: rales bi lateral 1/[address] up and diminished lung sounds Cardio: Jugular venous distension: JVD Rate: tachycardic Rhythm: abnormal rhythm irregularly irregular Heart sounds: S1 normal heart sound present, S2 normal heart sound present, no click, no gallops, no murmurs and no rubs GI: Inspection: Yes distended and Yes obesity Auscultation: normal bowel sounds Skin: General skin exam: no rashes or lesions noted and ecchymosis Neuro: General: patient oriented x3 and no focal motor deficits Extrem: General: No clubbing, No cyanosis and Yes edema Psych: Appearance: grossly normal Affect: Sad affect present Objective Labs and Meds Result diagrams: 07/04/22 10:23 07/05/22 06:19 Lab results: Laboratory Results - last 24 hr 07/04/22 07/04/22 07/04/22 10:23 10:23 10:23 WBC 8.5 RBC 3.93 L Hgb 12.2 Hct 38.2 MCV 97.2 MCH 31.0 MCHC 31.9 RDW 16.8 H Plt Count 244 MPV 9.1 L Immature Gran % (Auto) 0.8 H Neut % (Auto) 73.6 H Lymph % (Auto) 10.7 L [place] % (Auto) 13.1 H Eos % (Auto) 1.3 Baso % (Auto) 0.5 Lymph # (Auto) 0.9 L [place] # (Auto) 1.1 Eos # (Auto) 0.1 Baso # (Auto) 0.0 Abs Immat Gran (auto) 0.07 H Absolute Neuts (auto) 6.2 Absolute Nucleated RBC 0.000 Nucleated RBC % (auto) 0.0 VBG pH VBG pCO2 VBG pO2 VBG HCO3 VBG O2 Saturation VBG Base Excess Sodium Potassium Chloride Carbon Dioxide Anion Gap BUN Creatinine Estim Creat Clear Calc Estimated GFR POC Glucose Random Glucose Lactic Acid 1.6 Calcium Magnesium Total Bilirubin AST ALT Alkaline Phosphatase Troponin I High Sens 29.2 H B-Natriuretic Peptide Total Protein Albumin Urine Color Urine Appearance Urine pH Ur Specific [place] Urine Protein Urine Glucose (UA) Urine Ketones Urine Blood Urine Nitrite Ur Leukocyte Esterase Influenza Type A (PCR) Influenza Type B (PCR) RSV RNA Qual (PCR) SARS-CoV-2 RNA (RT-PCR) 07/04/22 07/04/22 07/04/22 10:23 10:28 10:43 WBC RBC Hgb Hct MCV MCH MCHC RDW Plt Count MPV Immature Gran % (Auto) Neut % (Auto) Lymph % (Auto) [place] % (Auto) Eos % (Auto) Baso % (Auto) Lymph # (Auto) [place] # (Auto) Eos # (Auto) Baso # (Auto) Abs Immat Gran (auto) Absolute Neuts (auto) Absolute Nucleated RBC Nucleated RBC % (auto) VBG pH 7.52 H VBG pCO2 33 VBG pO2 56 VBG HCO3 28 H VBG O2 Saturation 87.0 VBG Base Excess 5.8 Sodium Potassium Chloride Carbon Dioxide Anion Gap BUN Creatinine Estim Creat Clear Calc Estimated GFR POC Glucose Random Glucose Lactic Acid Calcium Magnesium Total Bilirubin AST ALT Alkaline Phosphatase Troponin I High Sens B-Natriuretic Peptide 488 H Total Protein Albumin Urine Color Urine Appearance Urine pH Ur Specific [place] Urine Protein Urine Glucose (UA) Urine Ketones Urine Blood Urine Nitrite Ur Leukocyte Esterase Influenza Type A (PCR) NEGATIVE Influenza Type B (PCR) NEGATIVE RSV RNA Qual (PCR) NEGATIVE SARS-CoV-2 RNA (RT-PCR) NEGATIVE 07/04/22 07/04/22 07/04/22 12:10 15:32 16:55 WBC RBC Hgb Hct MCV MCH MCHC RDW Plt Count MPV Immature Gran % (Auto) Neut % (Auto) Lymph % (Auto) [place] % (Auto) Eos % (Auto) Baso % (Auto) Lymph # (Auto) [place] # (Auto) Eos # (Auto) Baso # (Auto) Abs Immat Gran (auto) Absolute Neuts (auto) Absolute Nucleated RBC Nucleated RBC % (auto) VBG pH VBG pCO2 VBG pO2 VBG HCO3 VBG O2 Saturation VBG Base Excess Sodium 137 Potassium 4.0 Chloride 96 Carbon Dioxide 33 H Anion Gap 12 BUN 44 H Creatinine 1.37 Estim Creat Clear Calc 49.8 Estimated GFR 38 POC Glucose Random Glucose 117 H Lactic Acid Calcium 8.6 Magnesium 2.6 Total Bilirubin 1.1 H AST 34 H ALT 17 Alkaline Phosphatase 119 H Troponin I High Sens 24.3 H B-Natriuretic Peptide Total Protein 6.5 Albumin 3.2 L Urine Color Yellow Urine Appearance Clear Urine pH 6.0 Ur Specific [place] 1.010 Urine Protein Negative Urine Glucose (UA) 250 H Urine Ketones Negative Urine Blood Negative Urine Nitrite Negative Ur Leukocyte Esterase Negative Influenza Type A (PCR) Influenza Type B (PCR) RSV RNA Qual (PCR) SARS-CoV-2 RNA (RT-PCR) 07/05/22 07/05/22 07/05/22 06:19 06:19 07:10 WBC RBC Hgb Hct MCV MCH MCHC RDW Plt Count MPV Immature Gran % (Auto) Neut % (Auto) Lymph % (Auto) [place] % (Auto) Eos % (Auto) Baso % (Auto) Lymph # (Auto) [place] # (Auto) Eos # (Auto) Baso # (Auto) Abs Immat Gran (auto) Absolute Neuts (auto) Absolute Nucleated RBC Nucleated RBC % (auto) VBG pH VBG pCO2 VBG pO2 VBG HCO3 VBG O2 Saturation VBG Base Excess Sodium 140 Potassium 3.1 L D Chloride 93 L Carbon Dioxide 37 H Anion Gap 13 BUN 41 H Creatinine 1.45 H Estim Creat Clear Calc 47.0 Estimated GFR 35 POC Glucose 139 H Random Glucose 147 H Lactic Acid Calcium 8.9 Magnesium 2.5 Total Bilirubin AST ALT Alkaline Phosphatase Troponin I High Sens B-Natriuretic Peptide Total Protein Albumin Urine Color Urine Appearance Urine pH Ur Specific [place] Urine Protein Urine Glucose (UA) Urine Ketones Urine Blood Urine Nitrite Ur Leukocyte Esterase Influenza Type A (PCR) Influenza Type B (PCR) RSV RNA Qual (PCR) SARS-CoV-2 RNA (RT-PCR) Imaging Radiologist's impression: Impressions Chest X-Ray 07/04/22 10:55 IMPRESSION: Mild cardiomegaly. No acute cardiopulmonary process. Assessment and Plan (1) Decompensated heart failure: Status: Acute Decompensated congestive heart failure despite having cardio Mems device because this is not being able to monitor on a regular basis. Had again a very long discussion about heart failure management. We discussed to go back to weight base management and if she has any weight gain in the initial phase 2 aggressively treated to avoid negative wishes cycle and hospitalization. Goals of therapy were discussed to avoid hospitalizations as well as improved symptomatology. She is responding to IV Lasix drip at this point time. Continue the same. Continue strict intake and output chart. Continue monitor electrolytes and replace as needed. Continue spironolactone and may up titrate if tolerated. Continue Jardiance. Continue rate control approach. Target goal dry weight around 235 lb. Her renal insufficiency appears to be due to venous congestion rather than reduce renal perfusion but could be possible with her decompensated heart failure. Continue to monitor renal function on a daily basis. Continue CPAP therapy. Overall prognosis is guarded. (2) Chronic atrial fibrillation: Status: Acute Chronic atrial fibrillation with slightly elevated heart rate. Resume her oral rate control medications. P.r.n. IV metoprolol can be use. Continue full oral anticoagulation. Will continue to follow with you. Procedures Date of Service Date of Service: 07/05/22
[2022-07-05] MEDS: Furosemide 40 MG/4 ML VIAL IVPUSH ×2 (11:53→21:56)
[2022-07-05] MEDS: Potassium Chloride Packet 20 MEQ PACKET 40 MEQ PO (11:54)
[2022-07-05] MEDS: Zinc Sulfate 220 MG CAPSULE PO (11:54)
[2022-07-05] MEDS: Potassium Chloride ER 20 MEQ TAB.ER.PRT 80 MEQ PO ×2 (11:54→20:45)
[2022-07-05 15:35] LABS: Anion Gap 14 (12-20); Blood Urea Nitrogen 40 mg/dL (9-16); Carbon Dioxide 38 mmol/L (22-29); Chloride 90 mmol/L (96-108); Creatinine Clr Calc Pharmacy 45.5; Estimated Glomerular Filt Rate 34; Glucose Random 281 mg/dL (60-115); Potassium 3.3 mmol/L (3.3-5.1); Sodium 139 mmol/L (135-145)
[2022-07-05] MEDS: 0.9 % Sodium Chloride Flush 3 ML SYRINGE IVFLUSH ×3 (15:54→21:57)
[2022-07-05 16:12] LABS: Glucose, Whole Blood 276 mg/dL (60-115)
[2022-07-05] MEDS: Rivaroxaban 15 MG TABLET PO (17:14)
[2022-07-05] MEDS: Pravastatin Sodium 20 MG TABLET PO (20:45)
[2022-07-05] MEDS: Insulin Lispro 100 UNIT/ML 3 ML VIAL SUBCUT (22:19)
[2022-07-06] VITALS (7 sets, daily range): BP systolic 92–127; BP diastolic 54–74; PULSE 85–112; RESP 16–20; TEMP 36.2–36.9; O2SAT 90–95; BMI 44.0
--- NOTE | 2022-07-06 01:47 | PC.NURSE ---
07/05/22 2200 poc-283 by pts own glucose monitoring,no sliding scale notified ordered sliding scale.6 units of lispro insulin given per sliding scale.
[2022-07-06 07:00] LABS: Anion Gap 16 (12-20); Blood Urea Nitrogen 38 mg/dL (9-16); Calcium 9.4 mg/dL (8.4-10.2); Carbon Dioxide 38 mmol/L (22-29); Chloride 92 mmol/L (96-108); Estimated Glomerular Filt Rate 40; Glucose Random 162 mg/dL (60-115); Sodium 143 mmol/L (135-145)
--- NOTE | 2022-07-06 07:31 | PC.NURSE ---
patient prefers checking own blood glucose. 165 this morning
[2022-07-06] MEDS: Fluticasone/Vilanterol 200/25 BLST.W.DEV 1 PUFF INHALE (07:33)
[2022-07-06] MEDS: Spironolactone 25 MG TABLET 12.5 MG PO (09:17)
[2022-07-06] MEDS: Ferrous Sulfate 324 MG TABLET.DR PO (09:19)
[2022-07-06] MEDS: Potassium Chloride ER 20 MEQ TAB.ER.PRT 80 MEQ PO ×2 (09:20→20:00)
[2022-07-06] MEDS: Metoprolol Tartrate 12.5 MG HALFTAB PO (09:20)
[2022-07-06] MEDS: Zinc Sulfate 220 MG CAPSULE PO (09:21)
[2022-07-06] MEDS: Docusate Sodium 100 MG CAPSULE PO (09:21)
[2022-07-06] MEDS: Multivitamin TABLET 1 TAB PO (09:21)
[2022-07-06] MEDS: Cholecalciferol (Vitamin D3) 25 MCG TABLET PO (09:22)
[2022-07-06] MEDS: Gabapentin 300 MG CAPSULE PO ×3 (09:22→20:00)
[2022-07-06] MEDS: allopurinoL 100 MG TABLET PO (09:22)
[2022-07-06] MEDS: Empagliflozin 10 MG TABLET PO (09:23)
[2022-07-06] MEDS: Insulin Glargine,Hum.rec.anlog 100 UNIT/ML 10 ML VIAL 25 UNIT SUBCUT (09:23)
[2022-07-06] MEDS: Furosemide 40 MG/4 ML VIAL IVPUSH (09:23)
[2022-07-06] MEDS: Insulin Lispro 100 UNIT/ML 3 ML VIAL SUBCUT ×4 (09:24→21:00)
--- NOTE | 2022-07-06 09:31 | P.PNIM_ITS ---
Subjective Subjective Date of Service: 07/06/22 Interval History: Pt seen for f/u for worsening edema secondary to CHF exacerbation. Interval history: Overall feels better, less swelling in the legs, breathing better. Review of Systems SOB, improved Occasional non-productive cough No chest pain/pressure, palpitaitons. Physical Exam Vital Signs: Vital Signs: Last Vital Signs Temp 98.4 F 07/06/22 07:55 Pulse 112 H 07/06/22 07:55 Resp 16 07/06/22 07:55 BP 127/58 L 07/06/22 07:55 Pulse Ox 94 07/06/22 04:00 O2 Del Method 07/06/22 04:00 O2 Flow Rate 5.0 07/05/22 20:00 Oxygen Flow Rate 2 07/04/22 10:02 BMI result Body Mass Index 44.0 Const: Other: General: AO X 3, no acute distress Resp: rales at bases CVS: S1,S2,RRR, 2 +pedal edema GI: +BS, NT, no distention Skin: bilateral stasis dermatitis Neuro: motor grossly intact Psych: appropriate affect Objective Data Active Medications Acetaminophen (Acetaminophen 325 Mg Tablet) 650 mg PO Q6H PRN PRN Reason: Pain, Mild (Pain Scale 1-3) Albuterol Sulfate (Albuterol Sulfate 90 Mcg 8 Gm Inhaler) 2 puff INHALE Q6H PRN PRN Reason: shortness of breath or wheezing Allopurinol (Allopurinol 100 Mg Tablet) 100 mg PO DAILY [facility] Last Admin: 07/06/22 09:22 Dose: 100 mg Documented By: SAMIRA Dextrose (Dextrose 50 % 25 Gm/50 Ml Syringe) 25 gm IVPUSH Q15M PRN; Protocol PRN Reason: per Hypoglycemia Standing Ord. Docusate Sodium (Docusate Sodium 100 Mg Capsule) 100 mg PO DAILY PRN PRN Reason: Constipation Docusate Sodium (Docusate Sodium 100 Mg Capsule) 100 mg PO DAILY [facility] Last Admin: 07/06/22 09:21 Dose: 100 mg Documented By: SAMIRA Empagliflozin (Empagliflozin 10 Mg Tablet) 10 mg PO DAILY [facility] Last Admin: 07/06/22 09:23 Dose: 10 mg Documented By: SAMIRA Ferrous Sulfate (Ferrous Sulfate 324 Mg Tablet.) 324 mg PO DAILY [facility] Last Admin: 07/06/22 09:19 Dose: 324 mg Documented By: SAMIRA Fluticasone/Vilanterol (Fluticasone/Vilanterol 200/25 Blst.W.Dev) 1 puff INHALE RDAILY [facility] Last Admin: 07/06/22 07:33 Dose: 1 puff Documented By: ONEIL Furosemide (Furosemide 40 Mg/4 Ml Vial) 40 mg IVPUSH Q12H [facility]; Protocol Last Admin: 07/06/22 09:23 Dose: 40 mg Documented By: SAMIRA Gabapentin (Gabapentin 300 Mg Capsule) 300 mg PO TID [facility] Last Admin: 07/06/22 09:22 Dose: 300 mg Documented By: SAMIRA Glucose (Glucose Gel 15 Gm Gel..Gram.) 15 gm PO Q15M PRN; Protocol PRN Reason: per Hypoglycemia Standing Ord. Furosemide 200 mg/ Sodium (Chloride) 100 mls @ 2.5 mls/hr IVCONT .Q24H [facility] Insulin Glargine (Insulin Glargine,Hum.Rec.Anlog 100 Unit/Ml 10 Ml Vial) 25 unit SUBCUT DAILY [facility] Last Admin: 07/06/22 09:23 Dose: 25 unit Documented By: SAMIRA Insulin Human Lispro (Insulin Lispro 100 Unit/Ml 3 Ml Vial) 0 unit SUBCUT QIDACHS [facility]; Protocol Last Admin: 07/06/22 09:24 Dose: 2 unit Documented By: SAMIRA Metoprolol Tartrate (Metoprolol Tartrate 12.5 Mg Halftab) 12.5 mg PO BID [facility]; Protocol Last Admin: 07/06/22 09:20 Dose: 12.5 mg Documented By: SAMIRA Multivitamins/Vitamin C (Multivitamin Tablet) 1 tab PO DAILY [facility] Last Admin: 07/06/22 09:21 Dose: 1 tab Documented By: SAMIRA Ondansetron HCl (Ondansetron Hcl 4 Mg/2 Ml Vial) 4 mg IVPUSH Q8H PRN PRN Reason: Nausea and Vomiting Pharmacy Consult (Consult Rx Perform Med Rec) 1 each MISCELLANE ONCE PRN PRN Reason: Consult order Potassium Chloride (Potassium Chloride Er 20 Meq Tab.Er.Prt) 80 meq PO BID [facility] Last Admin: 07/06/22 09:20 Dose: 80 meq Documented By: SAMIRA Pravastatin Sodium (Pravastatin Sodium 20 Mg Tablet) 20 mg PO BEDTIME [facility] Last Admin: 07/05/22 20:45 Dose: 20 mg Documented By: LON Psyllium Hydrophilic Mucilloid (Psyllium Seed 3.4 Gm Powd.Pack) 3.4 gm PO DAILY [facility] Last Admin: 07/06/22 09:20 Dose: 3.4 gm Documented By: SAMIRA Rivaroxaban (Rivaroxaban 15 Mg Tablet) 15 mg PO DAILY@1700 [facility] Last Admin: 07/05/22 17:14 Dose: 15 mg Documented By: SAMIRA Sodium Chloride (0.9 % Sodium Chloride Flush 3 Ml Syringe) 3 ml IVFLUSH QSHIFT [facility] Last Admin: 07/05/22 21:57 Dose: 3 ml Documented By: LON Spironolactone (Spironolactone 25 Mg Tablet) 12.5 mg PO DAILY [facility]; Protocol Last Admin: 07/06/22 09:17 Dose: 12.5 mg Documented By: SAMIRA Tiotropium [place] (Tiotropium [place] 18 Mcg Cap.W.Dev) 1 puff INHALE RDAILY [facility] Last Admin: 07/06/22 07:33 Dose: 1 puff Documented By: ONEIL Vitamin D (Cholecalciferol (Vitamin D3) 25 Mcg Tablet) 25 mcg PO DAILY [facility] Last Admin: 07/06/22 09:22 Dose: 25 mcg Documented By: SAMIRA Zinc Sulfate (Zinc Sulfate 220 Mg Capsule) 220 mg PO DAILY [facility] Last Admin: 07/06/22 09:21 Dose: 220 mg Documented By: SAMIRA Labs CBC & Chem 7: 07/04/22 10:23 07/06/22 05:57 Labs: Laboratory Results - last 24 hr 07/05/22 07/05/22 07/06/22 15:02 15:42 05:57 Anion Gap 14 16 Estim Creat Clear Calc 45.5 50.0 Estimated GFR 34 40 POC Glucose 276 H Random Glucose 281 H 162 H Calcium 9.0 9.4 Microbiology Microbiology Results: Microbiology 07/04/22 12:16 Blood Culture - Preliminary Blood - Venous No growth after 24 hours. 07/04/22 12:10 Blood Culture - Preliminary Blood - Venous No growth after 24 hours. Assessment and Plan (1) CHF (congestive heart failure): Status: Acute (2) Shortness of breath: Status: Acute (3) Edema: Status: Acute Plan 72-year-old female with past medical history significant for diastolic heart failure, pulmonary hypertension, tricuspid valve regurgitation, AFib, COPD, HLD, and DM2 who presents to the ED with worsening edema over the past 2 weeks.?She was admitted for acute exacerbation of heart failure and treated with aggressive diuresising. # acute on chronic diastolic CHF exacerbation with excess of 40 Ib weight gain - negative 5.5 L fluid balanc -continue IV lasis drip -replace K -Continue Aldactone, Jardiance, metoprolol -follow I/O, weight, limit salt # DM2--continue Jardianc, SSI, Lantus # HTN -- continue home meds # CKD3-- Cr 1.3 (baseline) #HypOkaelmia-- d/t diuretics, replace with oral, check mag Full code Attending:? Dr. Walsh DVT prophylaxis: Lovenox Due to patient's need for aggressive IV diuretics for acute CHF, patient will require continued hospitalization. Time Spent With Patient Time: Total time managing care of this patient today ____ minutes. Quality Stroke Does the patient have a stroke diagnosis?: No VTE Prior VTE?: No VTE Risk Level:: Medical - moderate - high VTE Device Contraindication: Treatment Not Indicated VTE Drug Contraindication: N/A - Med Ordered
[2022-07-06] MEDS: Furosemide 200 MG in 0.9 % Sodium Chloride 80 ML IVCONT (10:27)
[2022-07-06 10:46] LABS: Magnesium 2.4 mg/dL (1.6-2.6)
--- NOTE | 2022-07-06 11:01 | PM.PNCARD ---
Subjective Subjective Date of Service: 07/06/22 Principal diagnosis: Heart failure Interval history: Patient has diuresed about 5500 cc since yesterday. Has lost 12 lb. Waiting at 265 lb sedentary dry weight is on 235 lb. Renal function is improved. Atrial fibrillation rapid ventricular response. Continues to be short of breath. Complains of cramping. Potassium is 3. Review of Systems Constitutional: Reports no additional constitutional complaints Cardiovascular: Denies chest pain, Reports leg edema, Denies palpitations and Reports dyspnea Respiratory: Reports dyspnea Gastrointestinal: Reports no additional gastrointestinal complaints Reports system reviewed and no additional complaints, except as documented Psychiatric: Reports no additional psychiatric complaints Endocrine: Reports no additional endocrine complaints and Denies palpitations Physical Exam Vital Signs: Last Vital Signs Temp 98.4 F 07/06/22 07:55 Pulse 112 H 07/06/22 07:55 Resp 16 07/06/22 07:55 BP 127/58 L 07/06/22 07:55 Pulse Ox 94 07/06/22 04:00 O2 Del Method 07/06/22 04:00 O2 Flow Rate 5.0 07/05/22 20:00 Oxygen Flow Rate 2 07/04/22 10:02 BMI result Body Mass Index 44.0 Const General: cooperative and in distress moderate and respiratory Nutritional Appearance: obese Orientation/consciousness: patient oriented x3 Limitations: no limitations HEENT Head: Yes normocephalic and Yes atraumatic Neck Neck: Yes trachea midline, Yes supple and Yes JVD Resp Effort & Inspection: normal respiratory effort Auscultation: rales bilateral 1/[address] way up and diminished lung sounds Cardio Jugular venous distension: JVD Rate: tachycardic Rhythm: abnormal rhythm irregularly irregular Heart sounds: S1 normal heart sound present, S2 normal heart sound present, no click, no gallops, no murmurs and no rubs GI Inspection: Yes distended and Yes obesity Auscultation: normal bowel sounds Skin General skin exam: no rashes or lesions noted and ecchymosis Neuro General: patient oriented x3 and no focal motor deficits Extrem General: No clubbing, No cyanosis and Yes edema Psych Appearance: grossly normal Affect: Sad affect present Objective Labs and Meds Result diagrams: 07/04/22 10:23 07/06/22 05:57 Lab results: Laboratory Results - last 24 hr 07/05/22 07/05/22 07/06/22 15:02 15:42 05:57 Sodium 139 143 Potassium 3.3 3.0 L Chloride 90 L 92 L Carbon Dioxide 38 H 38 H Anion Gap 14 16 BUN 40 H 38 H Creatinine 1.50 H 1.30 Estim Creat Clear Calc 45.5 50.0 Estimated GFR 34 40 POC Glucose 276 H Random Glucose 281 H 162 H Calcium 9.0 9.4 Magnesium 2.4 Progress Note: A&P Assessment and plan (1) Decompensated heart failure: Status: Acute Assessment and Plan: Decompensated congestive heart failure predominant right heart failure findings with persistently still significant weight gain. Diuresing well currently on Lasix drip. Continue the same. Continue strict intake and output chart. Continue Jardiance. Renal function is improving as expected. If remains stable add Aldactone to her regimen. Continue to replace potassium aggressively, she has complained of cramping. Also check magnesium. Overall prognosis guarded. Continue CPAP therapy. Better rate control for atrial fibrillation. (2) Chronic atrial fibrillation: Status: Acute Assessment and Plan: Chronic atrial fibrillation with borderline rate control. Increase metoprolol to 12.5 mg q.6 hours. Continue monitor blood pressure. If blood pressure becomes an issue can add digoxin to her regimen. Continue monitor renal function. Renal function improves and GFR status about 50 increase Xarelto to 20 mg daily. Will continue to follow with you Time Spent With Patient Time: Total time managing care of this patient today ____ minutes. Progress Note: Quality Stroke Does the patient have a stroke diagnosis?: No Procedures Date of Service Date of Service: 07/06/22
--- NOTE | 2022-07-06 16:05 | PC.NURSE ---
evening blood glucose is 224 , done by patient .
[2022-07-06] MEDS: Rivaroxaban 15 MG TABLET PO (16:40)
[2022-07-06] MEDS: Metoprolol Tartrate 50 MG TABLET PO (20:00)
[2022-07-06] MEDS: Pravastatin Sodium 20 MG TABLET PO (20:00)
[2022-07-07] VITALS (7 sets, daily range): BP systolic 100–116; BP diastolic 52–73; PULSE 89–97; RESP 15–20; TEMP 36.2–36.5; O2SAT 90–93; BMI 43.9
[2022-07-07] MEDS: Insulin Glargine,Hum.rec.anlog 100 UNIT/ML 10 ML VIAL 25 UNIT SUBCUT (08:28)
[2022-07-07] MEDS: Ferrous Sulfate 324 MG TABLET.DR PO (08:29)
[2022-07-07] MEDS: Metoprolol Tartrate 50 MG TABLET PO (08:29)
[2022-07-07] MEDS: Gabapentin 300 MG CAPSULE PO ×3 (08:29→20:27)
[2022-07-07] MEDS: Insulin Lispro 100 UNIT/ML 3 ML VIAL SUBCUT ×4 (08:29→20:26)
[2022-07-07] MEDS: Empagliflozin 10 MG TABLET PO (08:29)
[2022-07-07] MEDS: Cholecalciferol (Vitamin D3) 25 MCG TABLET PO (08:29)
[2022-07-07] MEDS: allopurinoL 100 MG TABLET PO (08:30)
[2022-07-07] MEDS: Docusate Sodium 100 MG CAPSULE PO (08:30)
[2022-07-07] MEDS: Zinc Sulfate 220 MG CAPSULE PO (08:30)
[2022-07-07] MEDS: Spironolactone 25 MG TABLET 12.5 MG PO (08:30)
[2022-07-07] MEDS: Potassium Chloride ER 20 MEQ TAB.ER.PRT 80 MEQ PO ×2 (08:30→20:27)
[2022-07-07] MEDS: Multivitamin TABLET 1 TAB PO (08:30)
--- NOTE | 2022-07-07 09:14 | HO.PM.IMPN ---
Subjective Subjective Date of Service: 07/07/22 Interval History: Pt seen for f/u for worsening edema secondary to CHF exacerbation. Interval history: Feels better, slept well, weight unchanged but more fluid negative Review of Systems SOB, improved Occasional non-productive cough No chest pain/pressure, palpitaitons. Physical Exam Vital Signs: Vital Signs: Last Vital Signs Temp 97.7 F 07/07/22 08:00 Pulse 97 07/07/22 08:00 Resp 19 07/07/22 08:00 BP 100/52 L 07/07/22 08:00 Pulse Ox 91 L 07/07/22 08:00 O2 Del Method 07/07/22 08:00 O2 Flow Rate 4.0 07/07/22 08:00 Oxygen Flow Rate 2 07/04/22 10:02 BMI result Body Mass Index 43.9 Objective Data Active Medications Acetaminophen (Acetaminophen 325 Mg Tablet) 650 mg PO Q6H PRN PRN Reason: Pain, Mild (Pain Scale 1-3) Albuterol Sulfate (Albuterol Sulfate 90 Mcg 8 Gm Inhaler) 2 puff INHALE Q6H PRN PRN Reason: shortness of breath or wheezing Allopurinol (Allopurinol 100 Mg Tablet) 100 mg PO DAILY [facility] Last Admin: 07/07/22 08:30 Dose: 100 mg Documented By: SAMIRA Dextrose (Dextrose 50 % 25 Gm/50 Ml Syringe) 25 gm IVPUSH Q15M PRN; Protocol PRN Reason: per Hypoglycemia Standing Ord. Docusate Sodium (Docusate Sodium 100 Mg Capsule) 100 mg PO DAILY PRN PRN Reason: Constipation Docusate Sodium (Docusate Sodium 100 Mg Capsule) 100 mg PO DAILY [facility] Last Admin: 07/07/22 08:30 Dose: 100 mg Documented By: SAMIRA Empagliflozin (Empagliflozin 10 Mg Tablet) 10 mg PO DAILY [facility] Last Admin: 07/07/22 08:29 Dose: 10 mg Documented By: SAMIRA Ferrous Sulfate (Ferrous Sulfate 324 Mg Tablet.Dr) 324 mg PO DAILY [facility] Last Admin: 07/07/22 08:29 Dose: 324 mg Documented By: SAMIRA Fluticasone/Vilanterol (Fluticasone/Vilanterol 200/25 Blst.W.Dev) 1 puff INHALE RDAILY [facility] Last Admin: 07/06/22 07:33 Dose: 1 puff Documented By: ONEIL Gabapentin (Gabapentin 300 Mg Capsule) 300 mg PO TID [facility] Last Admin: 07/07/22 08:29 Dose: 300 mg Documented By: SAMIRA Glucose (Glucose Gel 15 Gm Gel..Gram.) 15 gm PO Q15M PRN; Protocol PRN Reason: per Hypoglycemia Standing Ord. Furosemide 200 mg/ Sodium (Chloride) 100 mls @ 2.5 mls/hr IVCONT .Q24H [facility] Last Admin: 07/06/22 10:27 Dose: 5 mg/hr, 2.5 mls/hr Documented By: SAMIRA Insulin Glargine (Insulin Glargine,Hum.Rec.Anlog 100 Unit/Ml 10 Ml Vial) 25 unit SUBCUT DAILY [facility] Last Admin: 07/07/22 08:28 Dose: 25 unit Documented By: SAMIRA Insulin Human Lispro (Insulin Lispro 100 Unit/Ml 3 Ml Vial) 0 unit SUBCUT QIDACHS [facility]; Protocol Last Admin: 07/07/22 08:29 Dose: 2 unit Documented By: SAMIRA Metoprolol Tartrate (Metoprolol Tartrate 50 Mg Tablet) 50 mg PO BID [facility]; Protocol Last Admin: 07/07/22 08:29 Dose: 50 mg Documented By: SAMIRA Multivitamins/Vitamin C (Multivitamin Tablet) 1 tab PO DAILY [facility] Last Admin: 07/07/22 08:30 Dose: 1 tab Documented By: SAMIRA Ondansetron HCl (Ondansetron Hcl 4 Mg/2 Ml Vial) 4 mg IVPUSH Q8H PRN PRN Reason: Nausea and Vomiting Pharmacy Consult (Consult Rx Perform Med Rec) 1 each MISCELLANE ONCE PRN PRN Reason: Consult order Potassium Chloride (Potassium Chloride Er 20 Meq Tab.Er.Prt) 80 meq PO BID [facility] Last Admin: 07/07/22 08:30 Dose: 80 meq Documented By: SAMIRA Pravastatin Sodium (Pravastatin Sodium 20 Mg Tablet) 20 mg PO BEDTIME [facility] Last Admin: 07/06/22 20:00 Dose: 20 mg Documented By: LON Psyllium Hydrophilic Mucilloid (Psyllium Seed 3.4 Gm Powd.Pack) 3.4 gm PO DAILY [facility] Last Admin: 07/07/22 08:31 Dose: 3.4 gm Documented By: SAMIRA Rivaroxaban (Rivaroxaban 15 Mg Tablet) 15 mg PO DAILY@1700 [facility] Last Admin: 07/06/22 16:40 Dose: 15 mg Documented By: SAMIRA Sodium Chloride (0.9 % Sodium Chloride Flush 3 Ml Syringe) 3 ml IVFLUSH QSHIFT [facility] Last Admin: 07/07/22 08:34 Dose: Not Given Documented By: SAMIRA Non-Admin Reason: IV Running Spironolactone (Spironolactone 25 Mg Tablet) 12.5 mg PO DAILY [facility]; Protocol Last Admin: 07/07/22 08:30 Dose: 12.5 mg Documented By: SAMIRA Tiotropium [place] (Tiotropium [place] 18 Mcg Cap.W.Dev) 1 puff INHALE RDAILY [facility] Last Admin: 07/07/22 07:31 Dose: 1 puff Documented By: ONEIL Vitamin D (Cholecalciferol (Vitamin D3) 25 Mcg Tablet) 25 mcg PO DAILY [facility] Last Admin: 07/07/22 08:29 Dose: 25 mcg Documented By: SAMIRA Zinc Sulfate (Zinc Sulfate 220 Mg Capsule) 220 mg PO DAILY [facility] Last Admin: 07/07/22 08:30 Dose: 220 mg Documented By: SAMIRA Labs CBC & Chem 7: 07/04/22 10:23 07/06/22 05:57 Labs: Laboratory Results - last 24 hr 07/06/22 05:57 Magnesium 2.4 Microbiology Microbiology Results: Microbiology 07/04/22 12:16 Blood Culture - Preliminary Blood - Venous No growth after 48 hours. 07/04/22 12:10 Blood Culture - Preliminary Blood - Venous No growth after 48 hours. Assessment and Plan (1) CHF (congestive heart failure): Status: Acute (2) Shortness of breath: Status: Acute (3) Edema: Status: Acute Plan 72-year-old female with past medical history significant for diastolic heart failure, pulmonary hypertension, tricuspid valve regurgitation, AFib, COPD, HLD, and DM2 who presents to the ED with worsening edema over the past 2 weeks.?She was admitted for acute exacerbation of heart failure and treated with aggressive diuresising. # acute on chronic diastolic CHF exacerbation with excess of 40 Ib weight gain - negative 7.9 L fluid balanc -continue IV lasis drip -replace K as needed, doesn't want IV K -Continue Aldactone, Jardiance, metoprolol -follow I/O, weight, limit salt # DM2--continue Jardianc, SSI, Lantus # HTN--BP on low side, monitor closely #Permanent AFIB--metoprolol for rate, Xarelto for stroke prevention # CKD3-- Cr 1.3 (baseline) #HypOkaelmia-- d/t diuretics, replace with oral, she doesn't want IV K, mag is normal Full code Attending:? Dr. Walsh DVT prophylaxis:Xarelto Due to patient's need for aggressive IV diuretics for acute CHF, patient will require continued hospitalization. Time Spent With Patient Time: Total time managing care of this patient today ____ minutes. Quality Stroke Does the patient have a stroke diagnosis?: No VTE Prior VTE?: No VTE Risk Level:: Medical - moderate - high VTE Device Contraindication: Treatment Not Indicated VTE Drug Contraindication: N/A - Med Ordered
[2022-07-07 09:19] LABS: Anion Gap 17 (12-20); Blood Urea Nitrogen 41 mg/dL (9-16); Calcium 9.1 mg/dL (8.4-10.2); Carbon Dioxide 39 mmol/L (22-29); Chloride 88 mmol/L (96-108); Creatinine Clr Calc Pharmacy 48.5; Estimated Glomerular Filt Rate 39; Glucose Random 305 mg/dL (60-115); Potassium 3.1 mmol/L (3.3-5.1); Sodium 141 mmol/L (135-145)
--- NOTE | 2022-07-07 11:11 | PM.PNCARD ---
Subjective Subjective Date of Service: 07/07/22 Principal diagnosis: Heart failure Interval history: Patient diuresing well. Overall has diuresed about 8 L. Still appears to be short of breath requiring 4 L of nasal cannula. Blood pressure is 100 systolic borderline. Denies any palpitations. Heart rate has improved with additional metoprolol. Review of Systems Cardiovascular: Denies chest pain, Denies syncope, Denies rapid heart rate, Reports leg edema, Denies palpitations and Reports dyspnea Respiratory: Denies no additional respiratory complaints and Reports dyspnea Gastrointestinal: Denies no additional gastrointestinal complaints Musculoskeletal: Reports muscle cramps Denies syncope Endocrine: Denies palpitations Physical Exam Vital Signs: Last Vital Signs Temp 97.7 F 07/07/22 08:00 Pulse 97 07/07/22 08:00 Resp 19 07/07/22 08:00 BP 100/52 L 07/07/22 08:00 Pulse Ox 91 L 07/07/22 08:00 O2 Del Method 07/07/22 08:00 O2 Flow Rate 4.0 07/07/22 08:00 Oxygen Flow Rate 2 07/04/22 10:02 BMI result Body Mass Index 43.9 Const General: cooperative and in distress moderate and respiratory Nutritional Appearance: obese Orientation/consciousness: patient oriented x3 Limitations: no limitations HEENT Head: Yes normocephalic and Yes atraumatic Neck Neck: Yes trachea midline, Yes supple and Yes JVD Resp Effort & Inspection: normal respiratory effort Auscultation: rales bilateral 1/[address] up and diminished lung sounds Cardio Jugular venous distension: JVD Rate: tachycardic Rhythm: abnormal rhythm irregularly irregular Heart sounds: S1 normal heart sound present, S2 normal heart sound present, no click, no gallops, no murmurs and no rubs GI Inspection: Yes distended and Yes obesity Auscultation: normal bowel sounds Skin General skin exam: no rashes or lesions noted and ecchymosis Neuro General: patient oriented x3 and no focal motor deficits Extrem General: No clubbing, No cyanosis and Yes edema Psych Appearance: grossly normal Affect: Sad affect present Objective Labs and Meds Result diagrams: 07/04/22 10:23 07/07/22 08:41 Lab results: Laboratory Results - last 24 hr 07/07/22 08:41 Sodium 141 Potassium 3.1 L Chloride 88 L Carbon Dioxide 39 H Anion Gap 17 BUN 41 H Creatinine 1.34 Estim Creat Clear Calc 48.5 Estimated GFR 39 Random Glucose 305 H Calcium 9.1 Progress Note: A&P Assessment and plan (1) Decompensated heart failure: Status: Acute Assessment and Plan: Decompensated congestive heart failure diuresing well. Continue IV Lasix drip. Continue strict intake and output chart. Continue monitor electrolytes and replace potassium aggressively. She does not want intravenous replacement. Increase her p.o. intake. Also min measure magnesium levels. Continue Jardiance as well as spironolactone. Cannot further maximize spironolactone due to lower blood pressure. Will continue monitor. Patient's target dry weight is around 235 lb. Will measure CardioMEMS reading tomorrow (2) Chronic atrial fibrillation: Status: Acute Assessment and Plan: Chronic atrial fibrillation, currently better rate controlled. Continue full oral anticoagulation. Continue metoprolol therapy at current dose. Continue monitor heart rate. Maximize metoprolol as needed. Can add digoxin if renal function appears stable. Will continue to follow. Time Spent With Patient Time: Total time managing care of this patient today ____ minutes. Progress Note: Quality Stroke Does the patient have a stroke diagnosis?: No Procedures Date of Service Date of Service: 07/07/22
[2022-07-07] MEDS: Furosemide 200 MG in 0.9 % Sodium Chloride 80 ML IVCONT (12:01)
[2022-07-07] MEDS: Metoprolol Tartrate 12.5 MG HALFTAB PO ×2 (15:38→20:27)
--- NOTE | 2022-07-07 16:44 | PC.NURSE ---
evening blood glucose 235
[2022-07-07] MEDS: Rivaroxaban 15 MG TABLET PO (16:46)
[2022-07-07] MEDS: Pravastatin Sodium 20 MG TABLET PO (20:27)
[2022-07-08 03:02] VITALS: BP 99/53; PULSE 103; RESP 20; O2SAT 97
--- NOTE | 2022-07-08 04:14 | PC.NURSE ---
Pt had BP=99/50 RM=256, Dr. Julio was updated and held the scheduled Metoprolol po and continued her Lasix drip.
[2022-07-08 04:19] VITALS: BP 116/68; PULSE 87; RESP 14; TEMP 36.2; O2SAT 93
[2022-07-08 06:00] VITALS: BMI 44.6
[2022-07-08 07:08] VITALS: BP 117/56; PULSE 104; RESP 18; TEMP 36.7; O2SAT 93
[2022-07-08 07:24] LABS: Anion Gap 15 (12-20); Blood Urea Nitrogen 39 mg/dL (9-16); Calcium 8.7 mg/dL (8.4-10.2); Carbon Dioxide 37 mmol/L (22-29); Chloride 92 mmol/L (96-108); Creatinine Clr Calc Pharmacy 53.2; Estimated Glomerular Filt Rate 43; Glucose Random 188 mg/dL (60-115); Potassium 3.6 mmol/L (3.3-5.1); Sodium 140 mmol/L (135-145)
[2022-07-08 07:29] LABS: Glucose, Whole Blood 172 mg/dL (60-115)
[2022-07-08] MEDS: Insulin Lispro 100 UNIT/ML 3 ML VIAL SUBCUT ×4 (08:23→21:38)
[2022-07-08] MEDS: Insulin Glargine,Hum.rec.anlog 100 UNIT/ML 10 ML VIAL 25 UNIT SUBCUT (08:23)
[2022-07-08] MEDS: Spironolactone 25 MG TABLET 12.5 MG PO (08:24)
[2022-07-08] MEDS: Potassium Chloride ER 20 MEQ TAB.ER.PRT 40 MEQ PO ×2 (08:24→21:28)
[2022-07-08] MEDS: Multivitamin TABLET 1 TAB PO (08:24)
[2022-07-08] MEDS: Docusate Sodium 100 MG CAPSULE PO (08:24)
[2022-07-08] MEDS: Empagliflozin 10 MG TABLET PO (08:24)
[2022-07-08] MEDS: Cholecalciferol (Vitamin D3) 25 MCG TABLET PO (08:24)
[2022-07-08] MEDS: allopurinoL 100 MG TABLET PO (08:24)
[2022-07-08] MEDS: Metoprolol Tartrate 12.5 MG HALFTAB PO ×2 (08:24→16:05)
[2022-07-08] MEDS: Gabapentin 300 MG CAPSULE PO ×3 (08:25→21:28)
[2022-07-08] MEDS: Zinc Sulfate 220 MG CAPSULE PO (08:25)
[2022-07-08] MEDS: Ferrous Sulfate 324 MG TABLET.DR PO (08:25)
[2022-07-08] MEDS: Furosemide 200 MG in 0.9 % Sodium Chloride 80 ML IVCONT (10:40)
--- NOTE | 2022-07-08 11:00 | PM.PNCARD ---
Subjective Subjective Date of Service: 07/08/22 Principal diagnosis: Heart failure Interval history: Patient states she still has leg swelling but not as bad as before. Some improvement in shortness of breath. Resting in recliner. Review of Systems Review of Systems Yes all other systems are reviewed and are negative Constitutional: Reports as per HPI Eyes: Reports as per HPI Reports as per HPI Cardiovascular: Reports as per HPI, Denies acrocyanosis, Denies cool extremities, Denies chest pain, Reports leg edema, Denies lightheadedness, Denies palpitations, Reports dyspnea and Reports dyspnea on exertion Respiratory: Reports as per HPI, Reports no additional respiratory complaints, Reports dyspnea and Reports dyspnea on exertion Gastrointestinal: Reports as per HPI and Reports no additional gastrointestinal complaints Genitourinary: Reports as per HPI Musculoskeletal: Reports no additional musculoskeletal complaints and Reports as per HPI Skin/Breast: Reports system reviewed and no additional complaints, except as docu Reports system reviewed and no additional complaints, except as documented and Reports as per HPI Psychiatric: Reports no additional psychiatric complaints and Reports as per HPI Endocrine: Reports no additional endocrine complaints, Reports as per HPI and Denies palpitations Hematologic/Lymphatic: Reports no additional hematologic/lymphatic complaints and Reports as per HPI Allergic/Immunologic: Reports no additional allergic/immunologic complaints and Reports as per HPI Physical Exam Vital Signs: Last Vital Signs Temp 98.0 F 07/08/22 07:08 Pulse 104 H 07/08/22 07:08 Resp 18 07/08/22 07:08 BP 117/56 L 07/08/22 07:08 Pulse Ox 93 07/08/22 07:08 O2 Del Method 07/08/22 07:08 O2 Flow Rate 3 07/08/22 07:08 Oxygen Flow Rate 2 07/04/22 10:02 BMI result Body Mass Index 44.6 Const General: comfortable and no acute distress Orientation/consciousness: patient oriented x3 HEENT Other: Unremarkable Head: Yes normal to inspection Neck Neck: Yes normal visual inspection Chest Chest palpation & inspection: normal inspection of the chest Resp Other: Difficult to auscultate due to body habitus. Auscultation: diminished lung sounds Cardio Palpation: normal PMI Heart sounds: S1 normal heart sound present, S2 normal heart sound present, no gallops, no murmurs and no rubs GI Palpation (GI): Soft to palpation Back/Spine/Pelvis Other: unremarkable Skin General skin exam: no rashes or lesions noted Neuro General: patient oriented x3 Extrem Other: 3+ leg swelling bilaterally. General: Yes normal to inspection Psych Mental Status: mental status grossly normal Objective Labs and Meds Result diagrams: 07/04/22 10:23 07/08/22 05:44 Lab results: Laboratory Results - last 24 hr 07/08/22 07/08/22 05:44 07:14 Sodium 140 Potassium 3.6 Chloride 92 L Carbon Dioxide 37 H Anion Gap 15 BUN 39 H Creatinine 1.23 Estim Creat Clear Calc 53.2 Estimated GFR 43 POC Glucose 172 H Random Glucose 188 H Calcium 8.7 Progress Note: A&P Assessment and plan (1) Acute on chronic right-sided heart failure: Status: Acute (2) Acute on chronic diastolic (congestive) heart failure: Status: Acute (3) Chronic atrial fibrillation: Status: Acute Plan Based on input output data, she is -8.3 L. BUN is 39. Creatinine 1.23. Continue IV Lasix drip. Can increase the dose to 10 mg per hour. Metolazone 5 mg. Will follow up with you. Discussed with Dr. Walsh. Time Spent With Patient Time: Total time managing care of this patient today 35 minutes. Progress Note: Quality Stroke Does the patient have a stroke diagnosis?: No Procedures Date of Service Date of Service: 07/08/22
[2022-07-08 12:03] LABS: Glucose, Whole Blood 216 mg/dL (60-115)
--- NOTE | 2022-07-08 12:08 | P.PNIM_ITS ---
Subjective Subjective Date of Service: 07/08/22 Interval History: Pt seen for f/u for worsening edema secondary to CHF exacerbation. Interval history: continue have high urine output, legs still swollen Review of Systems SOB, improved Occasional non-productive cough No chest pain/pressure, palpitaitons. Physical Exam Vital Signs: Vital Signs: Last Vital Signs Temp 98.0 F 07/08/22 07:08 Pulse 104 H 07/08/22 07:08 Resp 18 07/08/22 07:08 BP 117/56 L 07/08/22 07:08 Pulse Ox 93 07/08/22 07:08 O2 Del Method 07/08/22 07:08 O2 Flow Rate 3 07/08/22 07:08 Oxygen Flow Rate 2 07/04/22 10:02 BMI result Body Mass Index 44.6 Const: Other: General: AO X 3, no acute distress Resp: rales at bases CVS: S1,S2,RRR, 3 +pedal edema GI: +BS, NT, no distention Skin: bilateral stasis dermatitis Neuro: motor grossly intact Psych: appropriate affect Objective Data Active Medications Acetaminophen (Acetaminophen 325 Mg Tablet) 650 mg PO Q6H PRN PRN Reason: Pain, Mild (Pain Scale 1-3) Albuterol Sulfate (Albuterol Sulfate 90 Mcg 8 Gm Inhaler) 2 puff INHALE Q6H PRN PRN Reason: shortness of breath or wheezing Allopurinol (Allopurinol 100 Mg Tablet) 100 mg PO DAILY [facility] Last Admin: 07/08/22 08:24 Dose: 100 mg Documented By: ANTHONY Dextrose (Dextrose 50 % 25 Gm/50 Ml Syringe) 25 gm IVPUSH Q15M PRN; Protocol PRN Reason: per Hypoglycemia Standing Ord. Docusate Sodium (Docusate Sodium 100 Mg Capsule) 100 mg PO DAILY PRN PRN Reason: Constipation Docusate Sodium (Docusate Sodium 100 Mg Capsule) 100 mg PO DAILY [facility] Last Admin: 07/08/22 08:24 Dose: 100 mg Documented By: ANTHONY Empagliflozin (Empagliflozin 10 Mg Tablet) 10 mg PO DAILY [facility] Last Admin: 07/08/22 08:24 Dose: 10 mg Documented By: ANTHONY Ferrous Sulfate (Ferrous Sulfate 324 Mg Tablet.) 324 mg PO DAILY [facility] Last Admin: 07/08/22 08:25 Dose: 324 mg Documented By: ANTHONY Fluticasone/Vilanterol (Fluticasone/Vilanterol 200/25 Blst.W.Dev) 1 puff INHALE RDAILY [facility] Last Admin: 07/08/22 07:59 Dose: Not Given Documented By: DESMOND Non-Admin Reason: pt refused wants to use advair Gabapentin (Gabapentin 300 Mg Capsule) 300 mg PO TID [facility] Last Admin: 07/08/22 08:25 Dose: 300 mg Documented By: ANTHONY Glucose (Glucose Gel 15 Gm Gel..Gram.) 15 gm PO Q15M PRN; Protocol PRN Reason: per Hypoglycemia Standing Ord. Furosemide 200 mg/ Sodium (Chloride) 100 mls @ 5 mls/hr IVCONT .Q20H [facility] Insulin Glargine (Insulin Glargine,Hum.Rec.Anlog 100 Unit/Ml 10 Ml Vial) 25 unit SUBCUT DAILY [facility] Last Admin: 07/08/22 08:23 Dose: 25 unit Documented By: ANTHONY Insulin Human Lispro (Insulin Lispro 100 Unit/Ml 3 Ml Vial) 0 unit SUBCUT QIDACHS [facility]; Protocol Last Admin: 07/08/22 08:23 Dose: 2 unit Documented By: ANTHONY Metoprolol Tartrate (Metoprolol Tartrate 12.5 Mg Halftab) 12.5 mg PO Q6H [facility]; Protocol Last Admin: 07/08/22 08:24 Dose: 12.5 mg Documented By: ANTHONY Multivitamins/Vitamin C (Multivitamin Tablet) 1 tab PO DAILY [facility] Last Admin: 07/08/22 08:24 Dose: 1 tab Documented By: ANTHONY Ondansetron HCl (Ondansetron Hcl 4 Mg/2 Ml Vial) 4 mg IVPUSH Q8H PRN PRN Reason: Nausea and Vomiting Pharmacy Consult (Consult Rx Perform Med Rec) 1 each MISCELLANE ONCE PRN PRN Reason: Consult order Potassium Chloride (Potassium Chloride Er 20 Meq Tab.Er.Prt) 40 meq PO BID [facility] Last Admin: 07/08/22 08:24 Dose: 40 meq Documented By: ANTHONY Pravastatin Sodium (Pravastatin Sodium 20 Mg Tablet) 20 mg PO BEDTIME [facility] Last Admin: 07/07/22 20:27 Dose: 20 mg Documented By: HO.CASTILM Psyllium Hydrophilic Mucilloid (Psyllium Seed 3.4 Gm Powd.Pack) 3.4 gm PO DAILY [facility] Last Admin: 07/08/22 08:25 Dose: 3.4 gm Documented By: ANTHONY Rivaroxaban (Rivaroxaban 15 Mg Tablet) 15 mg PO DAILY@1700 [facility] Last Admin: 07/07/22 16:46 Dose: 15 mg Documented By: SAMIRA Sodium Chloride (0.9 % Sodium Chloride Flush 3 Ml Syringe) 3 ml IVFLUSH QSHIFT [facility] Last Admin: 07/08/22 08:25 Dose: Not Given Documented By: ANTHONY Non-Admin Reason: IV Running Spironolactone (Spironolactone 25 Mg Tablet) 12.5 mg PO DAILY [facility]; Protocol Last Admin: 07/08/22 08:24 Dose: 12.5 mg Documented By: ANTHONY Tiotropium Waves (Tiotropium Waves 18 Mcg Cap.W.Dev) 1 puff INHALE RDAILY [facility] Last Admin: 07/08/22 07:56 Dose: 1 puff Documented By: DESMOND Vitamin D (Cholecalciferol (Vitamin D3) 25 Mcg Tablet) 25 mcg PO DAILY [facility] Last Admin: 07/08/22 08:24 Dose: 25 mcg Documented By: ANTHONY Zinc Sulfate (Zinc Sulfate 220 Mg Capsule) 220 mg PO DAILY [facility] Last Admin: 07/08/22 08:25 Dose: 220 mg Documented By: ANTHONY Labs CBC & Chem 7: 07/04/22 10:23 07/08/22 05:44 Labs: Laboratory Results - last 24 hr 07/08/22 07/08/22 07/08/22 05:44 07:14 11:07 Anion Gap 15 Estim Creat Clear Calc 53.2 Estimated GFR 43 POC Glucose 172 H 216 H Random Glucose 188 H Calcium 8.7 Assessment and Plan (1) CHF (congestive heart failure): Status: Acute (2) Shortness of breath: Status: Acute (3) Edema: Status: Acute Plan 72-year-old female with past medical history significant for diastolic heart failure, pulmonary hypertension, tricuspid valve regurgitation, AFib, COPD, HLD, and DM2 who presents to the ED with worsening edema over the past 2 weeks.?She was admitted for acute exacerbation of heart failure and treated with aggressive diuresising. # acute on chronic diastolic CHF exacerbation with excess of 40 Ib weight gain - negative 8.3 L fluid balanc -continue IV lasis drip, increase to 10/hr, adding Metolazone 5 today -replace K as needed, doesn't want IV K -Continue Aldactone, Jardiance, metoprolol -follow I/O, weight, limit salt # DM2--continue Jardiance, SSI, Lantus # HTN--BP on low side, monitor closely #Permanent AFIB--metoprolol for rate, Xarelto for stroke prevention # CKD3-- Cr 1.2 (baseline) #HypOkaelmia-- d/t diuretics, replace with oral, she doesn't want IV K, mag is normal Full code Attending:? Dr. Walsh DVT prophylaxis:Xarelto Due to patient's need for aggressive IV diuretics for acute CHF, patient will require continued hospitalization. Time Spent With Patient Time: Total time managing care of this patient today ____ minutes. Quality Stroke Does the patient have a stroke diagnosis?: No VTE Prior VTE?: No VTE Risk Level:: Medical - moderate - high VTE Device Contraindication: Treatment Not Indicated VTE Drug Contraindication: N/A - Med Ordered
[2022-07-08] MEDS: Furosemide 200 MG in 0.9 % Sodium Chloride 80 ML 10 MG IVCONT (12:15)
[2022-07-08] MEDS: metOLazone 5 MG TABLET PO (12:17)
[2022-07-08 16:00] VITALS: BP 100/65; PULSE 100; RESP 17; TEMP 36.5; O2SAT 97
[2022-07-08 16:26] LABS: Glucose, Whole Blood 275 mg/dL (60-115)
[2022-07-08] MEDS: Rivaroxaban 15 MG TABLET PO (16:49)
[2022-07-08 21:22] VITALS: BP 91/53; PULSE 107; RESP 20; TEMP 36.9; O2SAT 92
[2022-07-08] MEDS: Pravastatin Sodium 20 MG TABLET PO (21:28)
[2022-07-08 21:44] LABS: Glucose, Whole Blood 189 mg/dL (60-115)
[2022-07-08 22:54] VITALS: RESP 20
[2022-07-09] MEDS: Furosemide 200 MG in 0.9 % Sodium Chloride 80 ML 10 MG IVCONT (02:10)
[2022-07-09 03:57] VITALS: BP 125/69; PULSE 95; RESP 20; TEMP 36.7; O2SAT 92
[2022-07-09] MEDS: Metoprolol Tartrate 12.5 MG HALFTAB PO ×4 (04:04→20:24)
[2022-07-09 06:00] VITALS: BMI 43.9
[2022-07-09] MEDS: Oxymetazoline HCl 0.05 % Nasal 15 ML SPRAY 2 SPRAY NOSTRIL-B (06:09)
[2022-07-09 07:20] VITALS: BP 105/59; PULSE 93; RESP 20; TEMP 36.2; O2SAT 92
[2022-07-09 07:22] LABS: Glucose, Whole Blood 191 mg/dL (60-115)
[2022-07-09] MEDS: Multivitamin TABLET 1 TAB PO (07:31)
[2022-07-09] MEDS: Spironolactone 25 MG TABLET 12.5 MG PO (07:31)
[2022-07-09] MEDS: Cholecalciferol (Vitamin D3) 25 MCG TABLET PO (07:31)
[2022-07-09] MEDS: Ferrous Sulfate 324 MG TABLET.DR PO (07:32)
[2022-07-09] MEDS: Gabapentin 300 MG CAPSULE PO ×3 (07:32→20:24)
[2022-07-09] MEDS: Potassium Chloride ER 20 MEQ TAB.ER.PRT 40 MEQ PO ×2 (07:32→20:24)
[2022-07-09] MEDS: allopurinoL 100 MG TABLET PO (07:32)
[2022-07-09] MEDS: Docusate Sodium 100 MG CAPSULE PO (07:32)
[2022-07-09] MEDS: Empagliflozin 10 MG TABLET PO (07:32)
[2022-07-09] MEDS: Zinc Sulfate 220 MG CAPSULE PO (07:33)
[2022-07-09] MEDS: Insulin Glargine,Hum.rec.anlog 100 UNIT/ML 10 ML VIAL 25 UNIT SUBCUT (07:33)
[2022-07-09] MEDS: Insulin Lispro 100 UNIT/ML 3 ML VIAL SUBCUT ×4 (07:33→20:23)
[2022-07-09 07:34] LABS: Blood Urea Nitrogen 42 mg/dL (9-16); Creatinine Clr Calc Pharmacy 53.1; Estimated Glomerular Filt Rate 43; Glucose Random 172 mg/dL (60-115)
[2022-07-09 07:46] VITALS: PULSE 91; RESP 16; O2SAT 94
[2022-07-09 08:13] LABS: Anion Gap 15 (12-20); Carbon Dioxide 38 mmol/L (22-29); Chloride 88 mmol/L (96-108); Potassium 2.8 mmol/L (3.3-5.1); Sodium 138 mmol/L (135-145)
[2022-07-09] MEDS: Potassium Chloride Packet 20 MEQ PACKET 40 MEQ PO (09:19)
--- NOTE | 2022-07-09 10:01 | PM.PNCARD ---
Subjective Subjective Date of Service: 07/09/22 Principal diagnosis: Heart failure Interval history: Patient states that her nose is stuffy but otherwise generally okay. She did diurese a lot yesterday. Review of Systems Review of Systems Yes all other systems are reviewed and are negative Constitutional: Reports as per HPI Eyes: Reports as per HPI Reports as per HPI Cardiovascular: Reports as per HPI, Denies acrocyanosis, Denies cool extremities, Denies chest pain, Reports leg edema, Denies lightheadedness, Denies palpitations, Reports dyspnea and Reports dyspnea on exertion Respiratory: Reports as per HPI, Reports no additional respiratory complaints, Reports dyspnea and Reports dyspnea on exertion Gastrointestinal: Reports as per HPI and Reports no additional gastrointestinal complaints Genitourinary: Reports as per HPI Musculoskeletal: Reports no additional musculoskeletal complaints and Reports as per HPI Skin/Breast: Reports system reviewed and no additional complaints, except as docu Reports system reviewed and no additional complaints, except as documented and Reports as per HPI Psychiatric: Reports no additional psychiatric complaints and Reports as per HPI Endocrine: Reports no additional endocrine complaints, Reports as per HPI and Denies palpitations Hematologic/Lymphatic: Reports no additional hematologic/lymphatic complaints and Reports as per HPI Allergic/Immunologic: Reports no additional allergic/immunologic complaints and Reports as per HPI Physical Exam Vital Signs: Last Vital Signs Temp 97.2 F 07/09/22 07:20 Pulse 91 07/09/22 07:46 Resp 16 07/09/22 07:46 BP 105/59 L 07/09/22 07:20 Pulse Ox 92 07/09/22 07:20 O2 Del Method 07/09/22 07:20 O2 Flow Rate 3.5 07/09/22 07:20 Oxygen Flow Rate 2 07/04/22 10:02 BMI result Body Mass Index 43.9 Const General: comfortable and no acute distress Orientation/consciousness: patient oriented x3 HEENT Other: Unremarkable Head: Yes normal to inspection Neck Neck: Yes normal visual inspection Chest Chest palpation & inspection: normal inspection of the chest Resp Other: Difficult to auscultate due to body habitus. Auscultation: diminished lung sounds Cardio Palpation: normal PMI Heart sounds: S1 normal heart sound present, S2 normal heart sound present, no gallops, no murmurs and no rubs GI Palpation (GI): Soft to palpation Back/Spine/Pelvis Other: unremarkable Skin General skin exam: no rashes or lesions noted Neuro General: patient oriented x3 Extrem Other: 3+ leg swelling bilaterally. General: Yes normal to inspection Psych Mental Status: mental status grossly normal Objective Labs and Meds Result diagrams: 07/04/22 10:23 07/09/22 05:49 Lab results: Laboratory Results - last 24 hr 07/08/22 07/08/22 07/08/22 11:07 16:04 21:26 Sodium Potassium Chloride Carbon Dioxide Anion Gap BUN Creatinine Estim Creat Clear Calc Estimated GFR POC Glucose 216 H 275 H 189 H Random Glucose Calcium 07/09/22 07/09/22 05:49 07:18 Sodium 138 Potassium 2.8 L D Chloride 88 L Carbon Dioxide 38 H Anion Gap 15 BUN 42 H Creatinine 1.22 Estim Creat Clear Calc 53.1 Estimated GFR 43 POC Glucose 191 H Random Glucose 172 H Calcium 9.0 Progress Note: A&P Assessment and plan (1) Acute on chronic right-sided heart failure: Status: Acute (2) Acute on chronic diastolic (congestive) heart failure: Status: Acute (3) Chronic atrial fibrillation: Status: Acute Plan Based on input output data, she is -12.7L. BUN is 42. Creatinine 1.22. Potassium is diminished at 2.8. Currently on IV Lasix drip. Probably continue for another day. Aggressively correct lytes. She has diuresed a fair amount but still volume overloaded. Discussed with Dr. Yip. Time Spent With Patient Time: Total time managing care of this patient today 37 minutes. Progress Note: Quality Stroke Does the patient have a stroke diagnosis?: No Procedures Date of Service Date of Service: 07/09/22
[2022-07-09 11:21] LABS: Glucose, Whole Blood 255 mg/dL (60-115)
--- NOTE | 2022-07-09 13:19 | HO.PM.IMPN ---
Subjective Subjective Date of Service: 07/09/22 Interval History: f/u for worsening edema secondary to CHF exacerbation. Review of Systems continue have high urine output, legs still swollen no fevers or chills Physical Exam Vital Signs: Vital Signs: Last Vital Signs Temp 97.2 F 07/09/22 07:20 Pulse 91 07/09/22 07:46 Resp 16 07/09/22 07:46 BP 105/59 L 07/09/22 07:20 Pulse Ox 92 07/09/22 07:20 O2 Del Method 07/09/22 07:20 O2 Flow Rate 3.5 07/09/22 07:20 Oxygen Flow Rate 2 07/04/22 10:02 BMI result Body Mass Index 43.9 General: AO X 3, no acute distress Resp: rales at bases CVS: S1,S2,RRR, 3 +pedal edema GI: +BS, NT, no distention Skin:? bilateral stasis dermatitis Neuro:? motor grossly intact Psych: appropriate affect Objective Data Active Medications Acetaminophen (Acetaminophen 325 Mg Tablet) 650 mg PO Q6H PRN PRN Reason: Pain, Mild (Pain Scale 1-3) Albuterol Sulfate (Albuterol Sulfate 90 Mcg 8 Gm Inhaler) 2 puff INHALE Q6H PRN PRN Reason: shortness of breath or wheezing Allopurinol (Allopurinol 100 Mg Tablet) 100 mg PO DAILY [facility] Last Admin: 07/09/22 07:32 Dose: 100 mg Documented By: PORTER Dextrose (Dextrose 50 % 25 Gm/50 Ml Syringe) 25 gm IVPUSH Q15M PRN; Protocol PRN Reason: per Hypoglycemia Standing Ord. Docusate Sodium (Docusate Sodium 100 Mg Capsule) 100 mg PO DAILY PRN PRN Reason: Constipation Docusate Sodium (Docusate Sodium 100 Mg Capsule) 100 mg PO DAILY [facility] Last Admin: 07/09/22 07:32 Dose: 100 mg Documented By: PORTER Empagliflozin (Empagliflozin 10 Mg Tablet) 10 mg PO DAILY [facility] Last Admin: 07/09/22 07:32 Dose: 10 mg Documented By: PORTER Ferrous Sulfate (Ferrous Sulfate 324 Mg Tablet.) 324 mg PO DAILY [facility] Last Admin: 07/09/22 07:32 Dose: 324 mg Documented By: PORTER Fluticasone/Vilanterol (Fluticasone/Vilanterol 200/25 Blst.W.Dev) 1 puff INHALE RDAILY [facility] Last Admin: 07/09/22 11:43 Dose: Not Given Documented By: PORTER Non-Admin Reason: Patient Refused Gabapentin (Gabapentin 300 Mg Capsule) 300 mg PO TID [facility] Last Admin: 07/09/22 07:32 Dose: 300 mg Documented By: PORTER Glucose (Glucose Gel 15 Gm Gel..Gram.) 15 gm PO Q15M PRN; Protocol PRN Reason: per Hypoglycemia Standing Ord. Furosemide 200 mg/ Sodium (Chloride) 100 mls @ 5 mls/hr IVCONT .Q20H [facility] Last Infusion: 07/09/22 12:24 Dose: 0 mg/hr, 0 mls/hr Documented By: PORTER Insulin Glargine (Insulin Glargine,Hum.Rec.Anlog 100 Unit/Ml 10 Ml Vial) 25 unit SUBCUT DAILY [facility] Last Admin: 07/09/22 07:33 Dose: 25 unit Documented By: PORTER Insulin Human Lispro (Insulin Lispro 100 Unit/Ml 3 Ml Vial) 0 unit SUBCUT QIDACHS [facility]; Protocol Last Admin: 07/09/22 11:41 Dose: 6 unit Documented By: PORTER Metoprolol Tartrate (Metoprolol Tartrate 12.5 Mg Halftab) 12.5 mg PO Q6H [facility]; Protocol Last Admin: 07/09/22 07:31 Dose: 12.5 mg Documented By: PORTER Multivitamins/Vitamin C (Multivitamin Tablet) 1 tab PO DAILY [facility] Last Admin: 07/09/22 07:31 Dose: 1 tab Documented By: PORTER Ondansetron HCl (Ondansetron Hcl 4 Mg/2 Ml Vial) 4 mg IVPUSH Q8H PRN PRN Reason: Nausea and Vomiting Oxymetazoline HCl (Oxymetazoline Hcl 0.05 % Nasal 15 Ml [place]) 2 spray NOSTRIL-B BID PRN PRN Reason: Congestion Stop: 07/11/22 12:48 Last Admin: 07/09/22 06:09 Dose: 2 spray Documented By: CARLOS Pharmacy Consult (Consult Rx Perform Med Rec) 1 each MISCELLANE ONCE PRN PRN Reason: Consult order Potassium Chloride (Potassium Chloride Er 20 Meq Tab.Er.Prt) 40 meq PO BID [facility] Last Admin: 07/09/22 07:32 Dose: 40 meq Documented By: PORTER Pravastatin Sodium (Pravastatin Sodium 20 Mg Tablet) 20 mg PO BEDTIME [facility] Last Admin: 07/08/22 21:28 Dose: 20 mg Documented By: CASTILM Psyllium Hydrophilic Mucilloid (Psyllium Seed 3.4 Gm Powd.Pack) 3.4 gm PO DAILY [facility] Last Admin: 07/09/22 07:31 Dose: 3.4 gm Documented By: PORTER Rivaroxaban (Rivaroxaban 15 Mg Tablet) 15 mg PO DAILY@1700 [facility] Last Admin: 07/08/22 16:49 Dose: 15 mg Documented By: ANTHONY Sodium Chloride (0.9 % Sodium Chloride Flush 3 Ml Syringe) 3 ml IVFLUSH QSHIFT [facility] Last Admin: 07/09/22 07:39 Dose: Not Given Documented By: PORTER Non-Admin Reason: IV Running Spironolactone (Spironolactone 25 Mg Tablet) 12.5 mg PO DAILY [facility]; Protocol Last Admin: 07/09/22 07:31 Dose: 12.5 mg Documented By: PORTER Tiotropium [place] (Tiotropium [place] 18 Mcg Cap.W.Dev) 1 puff INHALE RDAILY [facility] Last Admin: 07/09/22 07:45 Dose: 1 puff Documented By: DESMOND Vitamin D (Cholecalciferol (Vitamin D3) 25 Mcg Tablet) 25 mcg PO DAILY [facility] Last Admin: 07/09/22 07:31 Dose: 25 mcg Documented By: PORTER Zinc Sulfate (Zinc Sulfate 220 Mg Capsule) 220 mg PO DAILY [facility] Last Admin: 07/09/22 07:33 Dose: 220 mg Documented By: PORTER Labs CBC & Chem 7: 07/04/22 10:23 07/09/22 05:49 Labs: Laboratory Results - last 24 hr 07/08/22 07/08/22 07/09/22 16:04 21:26 05:49 Anion Gap 15 Estim Creat Clear Calc 53.1 Estimated GFR 43 POC Glucose 275 H 189 H Random Glucose 172 H Calcium 9.0 07/09/22 07/09/22 07:18 11:17 Anion Gap Estim Creat Clear Calc Estimated GFR POC Glucose 191 H 255 H Random Glucose Calcium Assessment and Plan (1) Acute on chronic diastolic (congestive) heart failure: Status: Acute (2) CHF (congestive heart failure): Status: Acute (3) Hypokalemia: Status: Acute Plan 72-year-old female with past medical history significant for diastolic heart failure, pulmonary hypertension, tricuspid valve regurgitation, AFib, COPD, HLD, and DM2 who presents to the ED with worsening edema over the past 2 weeks.?She was admitted for acute exacerbation of heart failure and treated with aggressive diuresising. # acute? on chronic diastolic CHF exacerbation with excess of 40 Ib weight gain - negative 12 L fluid balanc -continue IV lasis drip, increase to 10/hr, adding Metolazone 5 today -replace K as needed, doesn't want IV K -Continue Aldactone, Jardiance, metoprolol -follow I/O, weight, limit salt # DM2--continue Jardiance, SSI, Lantus # HTN--BP on low side, monitor closely #Permanent AFIB--metoprolol for rate, Xarelto for stroke prevention # CKD3-- Cr 1.2 (baseline) #HypOkaelmia-- d/t? diuretics, replace with oral, she doesn't want IV K, mag is normal Full code Attending:? Dr. Walsh DVT prophylaxis:Xarelto Due to patient's need for aggressive IV diuretics for acute CHF, patient will require continued hospitalization. Time Spent With Patient Time: Total time managing care of this patient today ____ minutes. Quality Stroke Does the patient have a stroke diagnosis?: No VTE Prior VTE?: No VTE Risk Level:: Medical - moderate - high VTE Device Contraindication: Treatment Not Indicated VTE Drug Contraindication: N/A - Med Ordered
[2022-07-09 13:53] LABS: Magnesium 2.4 mg/dL (1.6-2.6)
[2022-07-09 15:22] VITALS: BP 99/51; PULSE 97; RESP 18; TEMP 37.1; O2SAT 94
[2022-07-09 15:35] LABS: Glucose, Whole Blood 255 mg/dL (60-115)
[2022-07-09] MEDS: Rivaroxaban 15 MG TABLET PO (17:05)
[2022-07-09] MEDS: Loratadine 10 MG TABLET PO (19:13)
[2022-07-09 19:22] LABS: Glucose, Whole Blood 241 mg/dL (60-115)
[2022-07-09 19:36] VITALS: BP 97/62; PULSE 96; RESP 18; TEMP 36.9; O2SAT 92
[2022-07-09] MEDS: Pravastatin Sodium 20 MG TABLET PO (20:24)
[2022-07-10] MEDS: Furosemide 200 MG in 0.9 % Sodium Chloride 80 ML IVCONT (03:53)
[2022-07-10 03:55] VITALS: BP 96/56; PULSE 106; RESP 18; TEMP 36.9; O2SAT 92
[2022-07-10] MEDS: Metoprolol Tartrate 12.5 MG HALFTAB PO ×4 (03:56→21:10)
[2022-07-10 05:12] VITALS: BMI 43.4
[2022-07-10] MEDS: Oxymetazoline HCl 0.05 % Nasal 15 ML SPRAY 2 SPRAY NOSTRIL-B (05:42)
[2022-07-10 07:20] LABS: Anion Gap 17 (12-20); Blood Urea Nitrogen 45 mg/dL (9-16); Calcium 8.9 mg/dL (8.4-10.2); Carbon Dioxide 39 mmol/L (22-29); Chloride 86 mmol/L (96-108); Creatinine Clr Calc Pharmacy 46.4; Estimated Glomerular Filt Rate 37; Glucose Random 172 mg/dL (60-115); Sodium 139 mmol/L (135-145)
[2022-07-10 07:24] LABS: Glucose, Whole Blood 204 mg/dL (60-115)
[2022-07-10 07:45] VITALS: BP 124/58; PULSE 99; RESP 19; TEMP 36.2; O2SAT 92
[2022-07-10] MEDS: Insulin Lispro 100 UNIT/ML 3 ML VIAL SUBCUT ×4 (08:14→21:03)
[2022-07-10] MEDS: Multivitamin TABLET 1 TAB PO (08:53)
[2022-07-10] MEDS: Gabapentin 300 MG CAPSULE PO ×3 (08:53→21:14)
[2022-07-10] MEDS: Zinc Sulfate 220 MG CAPSULE PO (08:53)
[2022-07-10] MEDS: Spironolactone 25 MG TABLET 12.5 MG PO (08:53)
[2022-07-10] MEDS: Loratadine 10 MG TABLET PO (08:53)
[2022-07-10] MEDS: Potassium Chloride Packet 20 MEQ PACKET 40 MEQ PO (08:55)
[2022-07-10] MEDS: Cholecalciferol (Vitamin D3) 25 MCG TABLET PO (08:55)
[2022-07-10] MEDS: Empagliflozin 10 MG TABLET PO (08:55)
[2022-07-10] MEDS: Docusate Sodium 100 MG CAPSULE PO (08:55)
[2022-07-10] MEDS: Ferrous Sulfate 324 MG TABLET.DR PO (08:55)
[2022-07-10] MEDS: allopurinoL 100 MG TABLET PO (08:56)
[2022-07-10] MEDS: Insulin Glargine,Hum.rec.anlog 100 UNIT/ML 10 ML VIAL 25 UNIT SUBCUT (08:56)
--- NOTE | 2022-07-10 09:17 | MHC.CM.PN ---
EMR REVIEWED, PT REMAINS ON LASIX DRIP AND POTASSIUM REMAINS LOW AFTER ORAL SUPPLEMENT, ANTIC D/C IN 1-2 DAYS, CM WILL CONT TO FOLLOW.
[2022-07-10 11:29] LABS: Glucose, Whole Blood 265 mg/dL (60-115)
--- NOTE | 2022-07-10 12:31 | PM.PNCARD ---
Subjective Subjective Date of Service: 07/10/22 Principal diagnosis: Heart failure Interval history: Seen at 1130. Today she reports frustration over not being able to have ice chips. This is her primary concern today. She says her breathing is comfortable at rest. She has ongoing shortness of breath with activity and is requiring 4 L of nasal cannula O2 supplement. She normally wears 2 L. She has been sleeping with the head of the bed elevated some. Intermittent coughing episodes which she states is from postnasal drip. No chest pains, heart palpitations, dizziness. She states swelling in her abdomen and legs are much improved. She has redness to the skin of the lower legs however no weeping skin areas noted. Reports only being able to walk a short distance due to her shortness of breath. Frustrated over the length of the time she has been in the hospital. Continues on Lasix drip at 10 milligrams/hour. Review of Systems Review of Systems as above Yes all other systems are reviewed and are negative Physical Exam Vital Signs: Last Vital Signs Temp 97.2 F 07/10/22 07:45 Pulse 99 07/10/22 07:45 Resp 19 07/10/22 07:45 BP 124/58 L 07/10/22 07:45 Pulse Ox 92 07/10/22 07:45 O2 Del Method 07/10/22 07:45 O2 Flow Rate 4.0 07/10/22 07:45 Oxygen Flow Rate 4 07/10/22 00:00 BMI result Body Mass Index 43.4 Const Other: morbidly obese General: cooperative, comfortable and no acute distress Orientation/consciousness: patient oriented x3 Neck Neck: Yes normal visual inspection Resp Other: Lung sounds diminished, airflow difficulty to hear in lower lung [place], wearing O2 4 liters with nasal cannula Effort & Inspection: normal respiratory effort Auscultation: no rhonchi and no wheezes Cardio Rate: regular rate Heart sounds: S1 normal heart sound present, S2 normal heart sound present, no gallops, no murmurs and no rubs GI Other: obese, soft, no pitting edema Neuro General: patient oriented x3 Extrem Other: nonpitting edema in leg with pinkness to skin of lower extremeties - she reports much improved Psych Appearance: grossly normal Mental Status: mental status grossly normal Speech and movement: Normal speech and movement present Objective Labs and Meds Result diagrams: 07/04/22 10:23 07/10/22 05:42 Lab results: Laboratory Results - last 24 hr 07/09/22 07/09/22 07/09/22 05:49 15:31 19:12 Sodium Potassium Chloride Carbon Dioxide Anion Gap BUN Creatinine Estim Creat Clear Calc Estimated GFR POC Glucose 255 H 241 H Random Glucose Calcium Magnesium 2.4 07/10/22 07/10/22 07/10/22 05:42 07:21 11:23 Sodium 139 Potassium 3.0 L Chloride 86 L Carbon Dioxide 39 H Anion Gap 17 BUN 45 H Creatinine 1.39 Estim Creat Clear Calc 46.4 Estimated GFR 37 POC Glucose 204 H 265 H Random Glucose 172 H Calcium 8.9 Magnesium Progress Note: A&P Assessment and plan (1) Acute on chronic diastolic (congestive) heart failure: Status: Acute Assessment and Plan: History of diastolic and right-sided heart failure. Admit with decompensated heart failure and has been diuresing with IV Lasix drip. Fluid balance negative 16.7 L since admission. Weight down approximately 30 lb based on fluid balance and actual weight measurements. Continues to require increased O2 supplement from her baseline. She is on 4 L with sats 92%. She reports shortness of breath with activity such as walking out to the nurse's station and back. On examination her lungs are dim and edema is nonpitting. No clear JVD however her obesity makes this more challenging to assess. Labs being followed. Creatinine 1.39, K 3.0. Receiving K supplement PO. Reviewed with Dr Mckeon. Will continue on Lasix drip for another day. BMP, BNP in am. She can have ice chips if they fall within her fluid restriction. Strict I+O monitoring. Daily weights. Wean O2 as able down to her usual home 2 liters, as able, keeping Sat > 90%. Continue Aldactone, Jardiance, Metoprolol. We will follow. (2) Acute on chronic right-sided heart failure: Status: Acute (3) Hypokalemia: Status: Acute Assessment and Plan: O2 supplement with goal potassium 4. On 40meq BID currently. (4) Chronic atrial fibrillation: Status: Acute Assessment and Plan: Hx afib, chronic, asymptomatic. Rates have been borderline elevated. Recently started on Metoprolol. Hx of lexi in past with higher dose Metoprolol. Watch for bradycardia. On Xarelto, renal dose for anticoagulation. No bleeding issues noted. (5) COPD (chronic obstructive pulmonary disease): Status: Acute Assessment and Plan: Followed by hospitalist. On O2 supplement. Wearing CPAP at night. (6) Supplemental oxygen dependent: Status: Acute (7) MELANIE (obstructive sleep apnea): Status: Acute Time Spent With Patient Time: Total time managing care of this patient today __20__ minutes. Progress Note: Quality Stroke Does the patient have a stroke diagnosis?: No Procedures Date of Service Date of Service: 07/10/22
[2022-07-10 15:08] VITALS: BP 102/56; PULSE 92; RESP 18; TEMP 36.6; O2SAT 90
[2022-07-10 15:27] LABS: Glucose, Whole Blood 260 mg/dL (60-115)
--- NOTE | 2022-07-10 15:54 | P.PNIM_ITS ---
Subjective Subjective Date of Service: 07/10/22 Interval History: f/u for worsening edema secondary to CHF exacerbation Review of Systems continue have high urine output, legs still swollen no fevers or chills Physical Exam Vital Signs: Vital Signs: Last Vital Signs Temp 98 F 07/10/22 15:08 Pulse 92 07/10/22 15:08 Resp 18 07/10/22 15:08 BP 102/56 L 07/10/22 15:08 Pulse Ox 90 L 07/10/22 15:08 O2 Del Method 07/10/22 15:08 O2 Flow Rate 4 07/10/22 15:08 Oxygen Flow Rate 4 07/10/22 00:00 BMI result Body Mass Index 43.4 General: AO X 3, no acute distress Resp: rales at bases CVS: S1,S2,RRR, 3 +pedal edema GI: +BS, NT, no distention Skin:? bilateral stasis dermatitis Neuro:? motor grossly intact Psych: appropriate affect Objective Data Active Medications Acetaminophen (Acetaminophen 325 Mg Tablet) 650 mg PO Q6H PRN PRN Reason: Pain, Mild (Pain Scale 1-3) Albuterol Sulfate (Albuterol Sulfate 90 Mcg 8 Gm Inhaler) 2 puff INHALE Q6H PRN PRN Reason: shortness of breath or wheezing Allopurinol (Allopurinol 100 Mg Tablet) 100 mg PO DAILY [facility] Last Admin: 07/10/22 08:56 Dose: 100 mg Documented By: THELMA Dextrose (Dextrose 50 % 25 Gm/50 Ml Syringe) 25 gm IVPUSH Q15M PRN; Protocol PRN Reason: per Hypoglycemia Standing Ord. Docusate Sodium (Docusate Sodium 100 Mg Capsule) 100 mg PO DAILY PRN PRN Reason: Constipation Docusate Sodium (Docusate Sodium 100 Mg Capsule) 100 mg PO DAILY [facility] Last Admin: 07/10/22 08:55 Dose: 100 mg Documented By: THELMA Empagliflozin (Empagliflozin 10 Mg Tablet) 10 mg PO DAILY [facility] Last Admin: 07/10/22 08:55 Dose: 10 mg Documented By: THELMA Ferrous Sulfate (Ferrous Sulfate 324 Mg Tablet.) 324 mg PO DAILY [facility] Last Admin: 07/10/22 08:55 Dose: 324 mg Documented By: THELMA Fluticasone/Vilanterol (Fluticasone/Vilanterol 200/25 Blst.W.Dev) 1 puff INHALE RDAILY [facility] Last Admin: 07/09/22 11:43 Dose: Not Given Documented By: PORTER Non-Admin Reason: Patient Refused Gabapentin (Gabapentin 300 Mg Capsule) 300 mg PO TID [facility] Last Admin: 07/10/22 14:14 Dose: 300 mg Documented By: THELMA Glucose (Glucose Gel 15 Gm Gel..Gram.) 15 gm PO Q15M PRN; Protocol PRN Reason: per Hypoglycemia Standing Ord. Furosemide 200 mg/ Sodium (Chloride) 100 mls @ 5 mls/hr IVCONT .Q20H [facility] Last Admin: 07/10/22 03:53 Dose: 10 mg/hr, 5 mls/hr Documented By: ROSEANN Insulin Glargine (Insulin Glargine,Hum.Rec.Anlog 100 Unit/Ml 10 Ml Vial) 25 unit SUBCUT DAILY [facility] Last Admin: 07/10/22 08:56 Dose: 25 unit Documented By: THELMA Insulin Human Lispro (Insulin Lispro 100 Unit/Ml 3 Ml Vial) 0 unit SUBCUT QIDACHS [facility]; Protocol Last Admin: 07/10/22 11:48 Dose: 6 unit Documented By: THELMA Loratadine (Loratadine 10 Mg Tablet) 10 mg PO DAILY [facility] Last Admin: 07/10/22 08:53 Dose: 10 mg Documented By: THELMA Metoprolol Tartrate (Metoprolol Tartrate 12.5 Mg Halftab) 12.5 mg PO Q6H [facility]; Protocol Last Admin: 07/10/22 14:14 Dose: 12.5 mg Documented By: THELMA Multivitamins/Vitamin C (Multivitamin Tablet) 1 tab PO DAILY [facility] Last Admin: 07/10/22 08:53 Dose: 1 tab Documented By: THELMA Ondansetron HCl (Ondansetron Hcl 4 Mg/2 Ml Vial) 4 mg IVPUSH Q8H PRN PRN Reason: Nausea and Vomiting Oxymetazoline HCl (Oxymetazoline Hcl 0.05 % Nasal 15 Ml [place]) 2 spray NOSTRIL- B BID PRN PRN Reason: Congestion Stop: 07/11/22 12:48 Last Admin: 07/10/22 05:42 Dose: 2 spray Documented By: ROSEANN Pharmacy Consult (Consult Rx Perform Med Rec) 1 each MISCELLANE ONCE PRN PRN Reason: Consult order Potassium Chloride (Potassium Chloride Er 20 Meq Tab.Er.Prt) 40 meq PO BID [facility] Last Admin: 07/10/22 09:43 Dose: Not Given Documented By: THELMA Non-Admin Reason: per d loreta Pravastatin Sodium (Pravastatin Sodium 20 Mg Tablet) 20 mg PO BEDTIME [facility] Last Admin: 07/09/22 20:24 Dose: 20 mg Documented By: SAMIRA Psyllium Hydrophilic Mucilloid (Psyllium Seed 3.4 Gm Powd.Pack) 3.4 gm PO DAILY [facility] Last Admin: 07/10/22 08:55 Dose: 3.4 gm Documented By: THELMA Rivaroxaban (Rivaroxaban 15 Mg Tablet) 15 mg PO DAILY@1700 [facility] Last Admin: 07/09/22 17:05 Dose: 15 mg Documented By: SAMIRA Sodium Chloride (0.9 % Sodium Chloride Flush 3 Ml Syringe) 3 ml IVFLUSH QSHIFT [facility] Last Admin: 07/10/22 15:32 Dose: Not Given Documented By: ROSEANN Non-Admin Reason: IV Running Spironolactone (Spironolactone 25 Mg Tablet) 12.5 mg PO DAILY [facility]; Protocol Last Admin: 07/10/22 08:53 Dose: 12.5 mg Documented By: THELMA Tiotropium [place] (Tiotropium [place] 18 Mcg Cap.W.Dev) 1 puff INHALE RDAILY [facility] Last Admin: 07/10/22 11:27 Dose: 1 puff Documented By: JORDI Vitamin D (Cholecalciferol (Vitamin D3) 25 Mcg Tablet) 25 mcg PO DAILY [facility] Last Admin: 07/10/22 08:55 Dose: 25 mcg Documented By: THELMA Zinc Sulfate (Zinc Sulfate 220 Mg Capsule) 220 mg PO DAILY [facility] Last Admin: 07/10/22 08:53 Dose: 220 mg Documented By: THELMA Labs CBC & Chem 7: 07/04/22 10:23 07/10/22 05:42 Labs: Laboratory Results - last 24 hr 07/09/22 07/10/22 07/10/22 19:12 05:42 07:21 Anion Gap 17 Estim Creat Clear Calc 46.4 Estimated GFR 37 POC Glucose 241 H 204 H Random Glucose 172 H Calcium 8.9 07/10/22 07/10/22 11:23 15:12 Anion Gap Estim Creat Clear Calc Estimated GFR POC Glucose 265 H 260 H Random Glucose Calcium Microbiology Microbiology Results: Microbiology 07/04/22 12:16 Blood Culture - Final Blood - Venous No growth after 5 days. 07/04/22 12:10 Blood Culture - Final Blood - Venous No growth after 5 days. Assessment and Plan (1) Acute on chronic diastolic (congestive) heart failure: Status: Acute (2) CHF (congestive heart failure): Status: Acute (3) Hypokalemia: Status: Acute Plan 72-year-old female with past medical history significant for diastolic heart failure, pulmonary hypertension, tricuspid valve regurgitation, AFib, COPD, HLD, and DM2 who presents to the ED with worsening edema over the past 2 weeks.?She was admitted for acute exacerbation of heart failure and treated with aggressive diuresising. # acute? on chronic diastolic CHF exacerbation with excess of 40 Ib weight gain - negative 16 L fluid balanc,weight lost appox 30 lbs -continue IV lasis drip, increase to 10/hr, adding Metolazone 5 today -replace K as needed, doesn't want IV K -Continue Aldactone, Jardiance, metoprolol -follow I/O, weight, limit salt # DM2--continue Jardiance, SSI, Lantus # HTN--BP on low side, monitor closely #Permanent AFIB--metoprolol for rate, Xarelto for stroke prevention # CKD3-- Cr 1.2 (baseline) #HypOkaelmia-- d/t? diuretics, replace with oral, she doesn't want IV K, mag is normal Full code Attending:? Dr. Walsh DVT prophylaxis:Xarelto Due to patient's need for aggressive IV diuretics for acute CHF, patient will require continued hospitalization. Time Spent With Patient Time: Total time managing care of this patient today ____ minutes. Quality Stroke Does the patient have a stroke diagnosis?: No VTE Prior VTE?: No VTE Risk Level:: Medical - moderate - high VTE Device Contraindication: Treatment Not Indicated VTE Drug Contraindication: N/A - Med Ordered
[2022-07-10] MEDS: Rivaroxaban 15 MG TABLET PO (16:32)
[2022-07-10 20:00] VITALS: BP 102/59; PULSE 118; RESP 17; TEMP 36.5; O2SAT 90
[2022-07-10 20:00] LABS: Glucose, Whole Blood 242 mg/dL (60-115)
[2022-07-10] MEDS: Potassium Chloride ER 20 MEQ TAB.ER.PRT 40 MEQ PO (21:01)
[2022-07-10] MEDS: Pravastatin Sodium 20 MG TABLET PO (21:02)
[2022-07-10 22:15] VITALS: RESP 17
[2022-07-11] VITALS (9 sets, daily range): BP systolic 96–114; BP diastolic 57–66; PULSE 82–110; RESP 18–20; TEMP 36.1–36.7; O2SAT 91–95; BMI 43.2
[2022-07-11] MEDS: Furosemide 200 MG in 0.9 % Sodium Chloride 80 ML IVCONT ×2 (00:37→20:54)
[2022-07-11] MEDS: Metoprolol Tartrate 12.5 MG HALFTAB PO ×4 (04:23→20:53)
[2022-07-11 07:23] LABS: Blood Urea Nitrogen 45 mg/dL (9-16); Calcium 8.8 mg/dL (8.4-10.2); Creatinine Clr Calc Pharmacy 50.2; Estimated Glomerular Filt Rate 41; Glucose Random 201 mg/dL (60-115)
[2022-07-11 07:47] LABS: Glucose, Whole Blood 237 mg/dL (60-115)
[2022-07-11 07:56] LABS: Anion Gap 15 (12-20); Carbon Dioxide 41 mmol/L (22-29); Chloride 87 mmol/L (96-108); Potassium 2.7 mmol/L (3.3-5.1); Sodium 140 mmol/L (135-145)
[2022-07-11] MEDS: Gabapentin 300 MG CAPSULE PO ×3 (07:57→20:47)
[2022-07-11] MEDS: Cholecalciferol (Vitamin D3) 25 MCG TABLET PO (07:57)
[2022-07-11] MEDS: Docusate Sodium 100 MG CAPSULE PO (07:57)
[2022-07-11] MEDS: Ferrous Sulfate 324 MG TABLET.DR PO (07:58)
[2022-07-11] MEDS: Zinc Sulfate 220 MG CAPSULE PO (07:58)
[2022-07-11] MEDS: Spironolactone 25 MG TABLET 12.5 MG PO ×2 (07:58→16:27)
[2022-07-11] MEDS: allopurinoL 100 MG TABLET PO (07:58)
[2022-07-11] MEDS: Multivitamin TABLET 1 TAB PO (07:58)
[2022-07-11] MEDS: Empagliflozin 10 MG TABLET PO (07:59)
[2022-07-11] MEDS: Insulin Lispro 100 UNIT/ML 3 ML VIAL SUBCUT ×4 (07:59→20:53)
[2022-07-11] MEDS: Potassium Chloride ER 20 MEQ TAB.ER.PRT 40 MEQ PO ×2 (07:59→20:54)
[2022-07-11] MEDS: Insulin Glargine,Hum.rec.anlog 100 UNIT/ML 10 ML VIAL 25 UNIT SUBCUT (07:59)
[2022-07-11 08:40] LABS: Magnesium 2.4 mg/dL (1.6-2.6)
[2022-07-11 09:00] LABS: B Type Natriuretic Peptide 508 pg/mL (<100)
[2022-07-11] MEDS: 0.9 % Sodium Chloride Flush 3 ML SYRINGE IVFLUSH ×2 (09:28→20:48)
[2022-07-11] MEDS: Potassium Chloride Packet 20 MEQ PACKET 40 MEQ PO ×2 (09:28→11:31)
[2022-07-11] MEDS: Loratadine 10 MG TABLET PO (09:40)
--- NOTE | 2022-07-11 11:29 | P.PNCA_ITS ---
Subjective Subjective Date of Service: 07/11/22 Principal diagnosis: Heart failure Interval history: See at 1130. Today she report breathing comfortable at rest. Still has sob with activity but states she always does. Wearing O2 at 3-4 liters. No chest pains, palpitations, dizziness. Says her abdominal swelling is gone. Legs much smaller, not weeping. Frustrated and wants to go home. Does not want to go to rehab. Tells me she has VNA once weekly at home. Review of Systems Review of Systems as above Yes all other systems are reviewed and are negative Physical Exam Vital Signs: Last Vital Signs Temp 97.8 F 07/11/22 07:39 Pulse 93 07/11/22 08:14 Resp 18 07/11/22 08:14 BP 103/57 L 07/11/22 07:39 Pulse Ox 92 07/11/22 07:39 O2 Del Method 07/11/22 07:39 O2 Flow Rate 3.0 07/11/22 07:39 Oxygen Flow Rate 4 07/10/22 00:00 BMI result Body Mass Index 43.2 Const Other: morbidly obese General: cooperative, comfortable and no acute distress Orientation/consciousness: patient oriented x3 Neck Neck: Yes normal visual inspection Resp Other: Lung sounds diminished, airflow difficulty to hear in lower lung [place], wearing O2 3 liters with nasal cannula Effort & Inspection: normal respiratory effort Auscultation: rales (each lower lobe), no rhonchi and no wheezes Cardio Rate: regular rate Heart sounds: S1 normal heart sound present, S2 normal heart sound present, no gallops, no murmurs and no rubs GI Other: obese, soft, no pitting edema Neuro General: patient oriented x3 Extrem Other: nonpitting edema in leg with pinkness to skin of lower extremeties - she reports much improved Psych Appearance: grossly normal Mental Status: mental status grossly normal Speech and movement: Normal speech and movement present Objective Labs and Meds Result diagrams: 07/04/22 10:23 07/11/22 05:37 Lab results: Laboratory Results - last 24 hr 07/10/22 07/10/22 07/10/22 11:23 15:12 19:55 Sodium Potassium Chloride Carbon Dioxide Anion Gap BUN Creatinine Estim Creat Clear Calc Estimated GFR POC Glucose 265 H 260 H 242 H Random Glucose Calcium Magnesium B-Natriuretic Peptide 07/11/22 07/11/22 07/11/22 05:37 05:37 07:37 Sodium 140 Potassium 2.7 L Chloride 87 L Carbon Dioxide 41 H* Anion Gap 15 BUN 45 H Creatinine 1.28 Estim Creat Clear Calc 50.2 Estimated GFR 41 POC Glucose 237 H Random Glucose 201 H Calcium 8.8 Magnesium 2.4 B-Natriuretic Peptide 508 H Progress Note: A&P Assessment and plan (1) Acute on chronic diastolic (congestive) heart failure: Status: Acute Assessment and Plan: History of diastolic and right-sided heart failure. Admit with decompensated heart failure and has been diuresing with IV Lasix drip. Fluid balance negative 19.7 L since admission. Weight down approximately 30 lb based on fluid balance and actual weight measurements. Continues to require increased O2 supplement from her baseline. She is on 4 L with sats 92%. She reports shortness of breath with activity such as walking out to the nurse's station and back. On examination her lungs are dim, rales in bases and leg edema is nonpitting. No clear JVD however her obesity makes this more challenging to assess. Labs being followed. Creatinine 1.28, K 2.7. Receiving K supplement PO hospitalist aware and will give more. BNP 505 today, was 488 on admit. Will check CXR today: rales are audible. Will work on obtaining a PA reading from [employer] device. Cont inue IV Lasix at present. BMP, BNP in am. She can have ice chips if they fall within her fluid restriction. Strict I+O monitoring. Daily weights. Increase physical activity as tolerated. Wean O2 as able down to her usual home 2 liters, as able, keeping Sat > 90%. Continue Aldactone, Jardiance, Metoprolol. We will follow. (2) Acute on chronic right-sided heart failure: Status: Acute (3) Hypokalemia: Status: Acute Assessment and Plan: O2 supplement with goal potassium 4. On 40meq BID currently. Additional potassium given to her by hospitalist today. (4) Chronic atrial fibrillation: Status: Acute Assessment and Plan: Hx afib, chronic, asymptomatic. Rates have been borderline elevated. Recently started on Metoprolol. Hx of lexi in past with higher dose Metoprolol. Watch for bradycardia. On Xarelto, renal dose for anticoagulation. No bleeding issues noted. (5) COPD (chronic obstructive pulmonary disease): Status: Acute Assessment and Plan: Followed by hospitalist. On O2 supplement. Wearing CPAP at night. (6) Supplemental oxygen dependent: Status: Acute (7) MELANIE (obstructive sleep apnea): Status: Acute Time Spent With Patient Time: Total time managing care of this patient today _24___ minutes. Progress Note: Quality Stroke Does the patient have a stroke diagnosis?: No Procedures Date of Service Date of Service: 07/11/22
[2022-07-11 11:36] LABS: Glucose, Whole Blood 308 mg/dL (60-115)
--- NOTE | 2022-07-11 14:21 | HO.PM.IMPN ---
Subjective Subjective Date of Service: 07/11/22 Interval History: f/u for worsening edema secondary to CHF exacerbation Review of Systems continue have high urine output, legs still swollen no fevers or chills Physical Exam Vital Signs: Vital Signs: Last Vital Signs Temp 97.8 F 07/11/22 07:39 Pulse 93 07/11/22 08:14 Resp 18 07/11/22 08:14 BP 103/57 L 07/11/22 07:39 Pulse Ox 92 07/11/22 07:39 O2 Del Method 07/11/22 07:39 O2 Flow Rate 3.0 07/11/22 07:39 Oxygen Flow Rate 4 07/10/22 00:00 BMI result Body Mass Index 43.2 ?General: AO X 3, no acute distress Resp: rales at bases CVS: S1,S2,RRR, 3 +pedal edema GI: +BS, NT, no distention Skin:? bilateral stasis dermatitis Neuro:? motor grossly intact Psych: appropriate affect Objective Data Active Medications Acetaminophen (Acetaminophen 325 Mg Tablet) 650 mg PO Q6H PRN PRN Reason: Pain, Mild (Pain Scale 1-3) Albuterol Sulfate (Albuterol Sulfate 90 Mcg 8 Gm Inhaler) 2 puff INHALE Q6H PRN PRN Reason: shortness of breath or wheezing Allopurinol (Allopurinol 100 Mg Tablet) 100 mg PO DAILY [facility] Last Admin: 07/11/22 07:58 Dose: 100 mg Documented By: GRAEME Dextrose (Dextrose 50 % 25 Gm/50 Ml Syringe) 25 gm IVPUSH Q15M PRN; Protocol PRN Reason: per Hypoglycemia Standing Ord. Docusate Sodium (Docusate Sodium 100 Mg Capsule) 100 mg PO DAILY PRN PRN Reason: Constipation Docusate Sodium (Docusate Sodium 100 Mg Capsule) 100 mg PO DAILY [facility] Last Admin: 07/11/22 07:57 Dose: 100 mg Documented By: GRAEME Empagliflozin (Empagliflozin 10 Mg Tablet) 10 mg PO DAILY [facility] Last Admin: 07/11/22 07:59 Dose: 10 mg Documented By: GRAEME Ferrous Sulfate (Ferrous Sulfate 324 Mg Tablet.) 324 mg PO DAILY [facility] Last Admin: 07/11/22 07:58 Dose: 324 mg Documented By: GRAEME Fluticasone Propionate (Fluticasone Propionate Nasal 16 Gm [place]) 1 spray NOSTRIL-B BID [facility] Last Admin: 07/11/22 11:36 Dose: Not Given Documented By: GRAEME Non-Admin Reason: Med Not Available Fluticasone/Vilanterol (Fluticasone/Vilanterol 200/25 Blst.W.Dev) 1 puff INHALE RDAILY [facility] Last Admin: 07/11/22 08:13 Dose: Not Given Documented By: LALO Non-Admin Reason: Patient Refused Gabapentin (Gabapentin 300 Mg Capsule) 300 mg PO TID [facility] Last Admin: 07/11/22 07:57 Dose: 300 mg Documented By: GRAEME Glucose (Glucose Gel 15 Gm Gel..Gram.) 15 gm PO Q15M PRN; Protocol PRN Reason: per Hypoglycemia Standing Ord. Furosemide 200 mg/ Sodium (Chloride) 100 mls @ 5 mls/hr IVCONT .Q20H [facility] Last Admin: 07/11/22 00:37 Dose: 10 mg/hr, 5 mls/hr Documented By: NAZANIN Insulin Glargine (Insulin Glargine,Hum.Rec.Anlog 100 Unit/Ml 10 Ml Vial) 25 unit SUBCUT DAILY [facility] Last Admin: 07/11/22 07:59 Dose: 25 unit Documented By: GRAEME Insulin Human Lispro (Insulin Lispro 100 Unit/Ml 3 Ml Vial) 0 unit SUBCUT QIDACHS [facility]; Protocol Last Admin: 07/11/22 11:31 Dose: 8 unit Documented By: GRAEME Loratadine (Loratadine 10 Mg Tablet) 10 mg PO DAILY [facility] Last Admin: 07/11/22 09:40 Dose: 10 mg Documented By: GRAEME Metoprolol Tartrate (Metoprolol Tartrate 12.5 Mg Halftab) 12.5 mg PO Q6H [facility]; Protocol Last Admin: 07/11/22 07:57 Dose: 12.5 mg Documented By: GRAEME Multivitamins/Vitamin C (Multivitamin Tablet) 1 tab PO DAILY [facility] Last Admin: 07/11/22 07:58 Dose: 1 tab Documented By: GRAEME Ondansetron HCl (Ondansetron Hcl 4 Mg/2 Ml Vial) 4 mg IVPUSH Q8H PRN PRN Reason: Nausea and Vomiting Pharmacy Consult (Consult Rx Perform Med Rec) 1 each MISCELLANE ONCE PRN PRN Reason: Consult order Potassium Chloride (Potassium Chloride Er 20 Meq Tab.Er.Prt) 40 meq PO BID [facility] Last Admin: 07/11/22 07:59 Dose: 40 meq Documented By: GRAEME Pravastatin Sodium (Pravastatin Sodium 20 Mg Tablet) 20 mg PO BEDTIME [facility] Last Admin: 07/10/22 21:02 Dose: 20 mg Documented By: ROSEANN Psyllium Hydrophilic Mucilloid (Psyllium Seed 3.4 Gm Powd.Pack) 3.4 gm PO DAILY [facility] Last Admin: 07/11/22 08:04 Dose: 3.4 gm Documented By: GRAEME Rivaroxaban (Rivaroxaban 15 Mg Tablet) 15 mg PO DAILY@1700 [facility] Last Admin: 07/10/22 16:32 Dose: 15 mg Documented By: ROSEANN Sodium Chloride (0.9 % Sodium Chloride Flush 3 Ml Syringe) 3 ml IVFLUSH QSHIFT [facility] Last Admin: 07/11/22 09:28 Dose: 3 ml Documented By: GRAEME Spironolactone (Spironolactone 25 Mg Tablet) 12.5 mg PO DAILY [facility]; Protocol Last Admin: 07/11/22 07:58 Dose: 12.5 mg Documented By: GRAEME Tiotropium [place] (Tiotropium [place] 18 Mcg Cap.W.Dev) 1 puff INHALE RDAILY [facility] Last Admin: 07/11/22 08:07 Dose: 1 puff Documented By: LALO Vitamin D (Cholecalciferol (Vitamin D3) 25 Mcg Tablet) 25 mcg PO DAILY [facility] Last Admin: 07/11/22 07:57 Dose: 25 mcg Documented By: GRAEME Zinc Sulfate (Zinc Sulfate 220 Mg Capsule) 220 mg PO DAILY [facility] Last Admin: 07/11/22 07:58 Dose: 220 mg Documented By: GRAEME Labs CBC & Chem 7: 07/04/22 10:23 07/11/22 05:37 Labs: Laboratory Results - last 24 hr 07/10/22 07/10/22 07/11/22 15:12 19:55 05:37 Anion Gap Estim Creat Clear Calc Estimated GFR POC Glucose 260 H 242 H Random Glucose Calcium Magnesium B-Natriuretic Peptide 508 H 07/11/22 07/11/22 07/11/22 05:37 07:37 11:13 Anion Gap 15 Estim Creat Clear Calc 50.2 Estimated GFR 41 POC Glucose 237 H 308 H Random Glucose 201 H Calcium 8.8 Magnesium 2.4 B-Natriuretic Peptide Assessment and Plan (1) Acute on chronic diastolic (congestive) heart failure: Status: Acute (2) CHF (congestive heart failure): Status: Acute (3) Hypokalemia: Status: Acute Plan 72-year-old female with past medical history significant for diastolic heart failure, pulmonary hypertension, tricuspid valve regurgitation, AFib, COPD, HLD, and DM2 who presents to the ED with worsening edema over the past 2 weeks.?She was admitted for acute exacerbation of heart failure and treated with aggressive diuresising. # acute? on chronic diastolic CHF exacerbation with excess of 40 Ib weight gain - negative 19liter fluid balanc,weight lost appox 30 lbs -continue IV lasis drip,also has alkalosis-added dimox. -replace K as needed, doesn't want IV K -Continue Aldactone, Jardiance, metoprolol,added potassium .mag normal -follow I/O, weight, limit salt # DM2--continue Jardiance, SSI, Lantus # HTN--BP on low side, monitor closely #Permanent AFIB--metoprolol for rate, Xarelto for stroke prevention # CKD3-- Cr 1.2 (baseline) #HypOkaelmia-- d/t? diuretics, replace with oral, she doesn't want IV K, mag is normal Full code Attending:? Dr. Walsh DVT prophylaxis:Xarelto Due to patient's need for aggressive IV diuretics for acute CHF, patient will require continued hospitalization. Time Spent With Patient Time: Total time managing care of this patient today ____ minutes. Quality Stroke Does the patient have a stroke diagnosis?: No VTE Prior VTE?: No VTE Risk Level:: Medical - moderate - high VTE Device Contraindication: Treatment Not Indicated VTE Drug Contraindication: N/A - Med Ordered
[2022-07-11] MEDS: Albuterol/Iprat 2.5/0.5MG 3 ML AMPUL.NEB INHALE ×2 (15:55→19:46)
[2022-07-11 16:17] LABS: Glucose, Whole Blood 293 mg/dL (60-115)
[2022-07-11] MEDS: acetaZOLAMIDE 250 MG TABLET PO (16:28)
[2022-07-11] MEDS: Rivaroxaban 15 MG TABLET PO (16:28)
[2022-07-11 20:23] LABS: Glucose, Whole Blood 228 mg/dL (60-115)
[2022-07-11] MEDS: Pravastatin Sodium 20 MG TABLET PO (20:48)
[2022-07-12] VITALS (8 sets, daily range): BP systolic 101–155; BP diastolic 54–65; PULSE 88–103; RESP 18–21; TEMP 36–36.9; O2SAT 91–95; BMI 43.7
[2022-07-12 07:30] LABS: Anion Gap 15 (12-20); Blood Urea Nitrogen 42 mg/dL (9-16); Calcium 8.9 mg/dL (8.4-10.2); Carbon Dioxide 39 mmol/L (22-29); Chloride 89 mmol/L (96-108); Creatinine Clr Calc Pharmacy 50.9; Estimated Glomerular Filt Rate 41; Glucose Random 227 mg/dL (60-115); Potassium 3.6 mmol/L (3.3-5.1); Sodium 139 mmol/L (135-145)
[2022-07-12 07:34] LABS: B Type Natriuretic Peptide 540 pg/mL (<100)
[2022-07-12 07:35] LABS: Glucose, Whole Blood 232 mg/dL (60-115)
[2022-07-12] MEDS: Albuterol/Iprat 2.5/0.5MG 3 ML AMPUL.NEB INHALE ×4 (07:48→19:43)
[2022-07-12] MEDS: Zinc Sulfate 220 MG CAPSULE PO (08:12)
[2022-07-12] MEDS: Gabapentin 300 MG CAPSULE PO ×3 (08:13→20:47)
[2022-07-12] MEDS: Loratadine 10 MG TABLET PO (08:13)
[2022-07-12] MEDS: Cholecalciferol (Vitamin D3) 25 MCG TABLET PO (08:13)
[2022-07-12] MEDS: Empagliflozin 10 MG TABLET PO (08:13)
[2022-07-12] MEDS: Multivitamin TABLET 1 TAB PO (08:13)
[2022-07-12] MEDS: Ferrous Sulfate 324 MG TABLET.DR PO (08:13)
[2022-07-12] MEDS: Spironolactone 25 MG TABLET PO (08:13)
[2022-07-12] MEDS: Potassium Chloride Packet 20 MEQ PACKET 40 MEQ PO ×3 (08:14→20:47)
[2022-07-12] MEDS: allopurinoL 100 MG TABLET PO (08:14)
[2022-07-12] MEDS: Potassium Chloride ER 20 MEQ TAB.ER.PRT 40 MEQ PO ×2 (08:14→20:47)
[2022-07-12] MEDS: Docusate Sodium 100 MG CAPSULE PO (08:14)
[2022-07-12] MEDS: Metoprolol Tartrate 12.5 MG HALFTAB PO ×3 (08:15→20:46)
[2022-07-12] MEDS: Insulin Glargine,Hum.rec.anlog 100 UNIT/ML 10 ML VIAL 25 UNIT SUBCUT (08:15)
[2022-07-12] MEDS: Insulin Lispro 100 UNIT/ML 3 ML VIAL SUBCUT ×4 (08:17→20:47)
[2022-07-12] MEDS: Fluticasone Propionate Nasal 16 GM SPRAY 1 SPRAY NOSTRIL-B ×2 (10:57→20:53)
--- NOTE | 2022-07-12 10:57 | P.CDIC_ITS ---
CDI Concurrent Query Documentation Clarification: PHYSICIAN'S DOCUMENTATION REQUEST Date of Query: 07/12/22 1058 Patient Name: Ragini Little Admit Date: 07/04/22 Dear Doctor, A review of the medical record indicates additional documentation may be needed. Please review below and update the documentation accordingly. Clinical Indicators: Is there a diagnosis that correlates with the findings below: Risk Factors/Clinical Indicators/Treatments Labs: POC on 07/11: 308 POC on 07/12: 232 Home medications: Dulaglutide 4.5mg insulin aspart 4-12 units Please clarify the following regarding Diabetes Mellitus (DM): * Hyperglycemia * No complications of DM * Other complication ? please specify * Unable to determine Use of terms such as suspected, likely, concern for, or probable (associated with a specific diagnosis that is being evaluated, monitored, or treated as if it exists) are acceptable and can be coded in the inpatient setting, when documented at the time of discharge. Thank you, Teodora Shah MS, RN, CCRN Extension: [phone] Please use your independent medical judgment in providing your response. THIS QUERY IS PART OF THE PERMANENT MEDICAL RECORD Provider Response: Other Other Diagnosis: dm with hyperglycemia
--- NOTE | 2022-07-12 10:59 | P.PNCA_ITS ---
Subjective Subjective Date of Service: 07/12/22 Principal diagnosis: Heart failure Interval history: Seen at 1030. Today she reports still having shortness of breath with activity which is chronic for her but not to her baseline yet. Wearing O2 still at 4 liters when home dose is 2 liters. Still has orthopnea, intermittent coughing. Abdomen obese. No chest pains, palpitations, dizziness. Leg without pitting edema or weeping. Still has Lasix drip infusing. Perez inplace. She states urine leaks around it at times. Did get up to the bathroom twice this am with a ssistance. Using walker. Review of Systems Review of Systems as above Yes all other systems are reviewed and are negative Physical Exam Vital Signs: Last Vital Signs Temp 96.8 F 07/12/22 08:00 Pulse 100 07/12/22 08:00 Resp 19 07/12/22 08:00 BP 155/65 H 07/12/22 08:00 Pulse Ox 91 L 07/12/22 08:00 O2 Del Method 07/12/22 08:00 O2 Flow Rate 4.0 07/12/22 08:00 Oxygen Flow Rate 4 07/10/22 00:00 BMI result Body Mass Index 43.7 Const Other: morbidly obese General: cooperative, comfortable and no acute distress Orientation/consciousness: patient oriented x3 Neck Neck: Yes normal visual inspection Resp Other: Lung sounds diminished, rales in bases, wearing O2 4 liters with nasal cannula Effort & Inspection: normal respiratory effort Auscultation: rales (each lower lobe), no rhonchi and no wheezes Cardio Rate: regular rate Heart sounds: S1 normal heart sound present, S2 normal heart sound present, no gallops, no murmurs and no rubs GI Other: obese, soft, no pitting edema Neuro General: patient oriented x3 Extrem Other: nonpitting edema in legs with pinkness to skin of lower extremeties Psych Appearance: grossly normal Mental Status: mental status grossly normal Speech and movement: Normal speech and movement present Objective Labs and Meds Result diagrams: 07/04/22 10:23 07/12/22 06:08 Lab results: Laboratory Results - last 24 hr 07/11/22 07/11/22 07/11/22 11:13 16:04 20:13 Sodium Potassium Chloride Carbon Dioxide Anion Gap BUN Creatinine Estim Creat Clear Calc Estimated GFR POC Glucose 308 H 293 H 228 H Random Glucose Calcium B-Natriuretic Peptide 07/12/22 07/12/22 07/12/22 06:08 06:08 07:26 Sodium 139 Potassium 3.6 D Chloride 89 L Carbon Dioxide 39 H Anion Gap 15 BUN 42 H Creatinine 1.27 Estim Creat Clear Calc 50.9 Estimated GFR 41 POC Glucose 232 H Random Glucose 227 H Calcium 8.9 B-Natriuretic Peptide 540 H Imaging Radiologist's impression: Impressions Chest X-Ray 07/11/22 13:48 IMPRESSION: Stable enlargement of the cardiac silhouette. Subsegmental atelectasis at the left lung base. Progress Note: A&P Assessment and plan (1) Acute on chronic diastolic (congestive) heart failure: Status: Acute Assessment and Plan: History of diastolic and right-sided heart failure. Last echo with EF 65-70%, mod increase in RV size and decreased in RVSF, LA mod dilated. Fluid balance negative 19.7 L since admission. Weight down approximately 30 lb based on fluid balance and actual weight measurements. Admit 07/04/22 with decompensated heart failure and has been diuresing with IV Lasix drip. Continues to require increased O2 supplement from her baseline. She is on 4 L with sats 91%. She reports shortness of breath with activity such as walking short distances, orthopnea, intermittent cough. On examination her lungs are dim, rales in bases and leg edema is nonpitting. No clear JVD however her obesity m akes this more challenging to assess. Labs being followed. Creatinine 1.27, K 3.6. Receiving K supplement. BNP 540 today, was 508 yesterday and 488 on admit. CXR done yesterday shows Lungs clear, no effusions, atelectasis Left base. She has Incentive spirometer at bedside and has been encouraged to use it. Cardiomems reading done yesterday shows ongoing elevation of PA readings: . Will Continue IV Lasix drip. Will give Metolazone 5 mg po today along with an extra 40meq KCL po. BMP, BNP in am. She can have ice chips in a quantity that falls within her fluid restriction. Strict I+O monitoring. Daily weights. Increase physical activity: ambulate at least 2-3 times daily. Wean O2 as able down to her usual home 2 liters, as able, keeping Sat > 90%. Continue Aldactone, Jardiance, Metoprolol. We will follow. (2) Acute on chronic right-sided heart failure: Status: Acute (3) Hypokalemia: Status: Acute Assessment and Plan: O2 supplement with goal potassium 4. On 40meq BID currently. Additional potassium given to today with her metolazone. (4) Chronic atrial fibrillation: Status: Acute Assessment and Plan: Hx afib, chronic, asymptomatic. Rates have been borderline elevated. Recently started on Metoprolol. Hx of lexi in past with higher dose Metoprolol. Watch for bradycardia. On Xarelto, renal dose for anticoagulation. No bleeding issues noted. (5) COPD (chronic obstructive pulmonary disease): Status: Acute Assessment and Plan: Followed by hospitalist. On O2 supplement. Wearing CPAP at night. (6) Supplemental oxygen dependent: Status: Acute (7) MELANIE (obstructive sleep apnea): Status: Acute Time Spent With Patient Time: Total time managing care of this patient today 24____ minutes. Progress Note: Quality Stroke Does the patient have a stroke diagnosis?: No Procedures Date of Service Date of Service: 07/12/22
--- NOTE | 2022-07-12 11:04 | P.CDIC_ITS ---
CDI Concurrent Query Documentation Clarification: PHYSICIAN'S DOCUMENTATION REQUEST Date of Query: 07/12/22 9860 Patient Name: Ragini Little Admit Date: 07/04/22 Dear Doctor, A review of the medical record indicates additional documentation may be needed. Please review below and update the documentation accordingly. Clinical Indicators: Is there a diagnosis that correlates with the findings below: Risk Factors/Clinical Indicators/Treatments Labs: Blood gas on 07/04: pH - 7.52 pCO2 - 33 pO2 - 56 HCO3 - 28 Other indicators: Patient requiring supplemental O2 with CPAP Patient being treated for acute on chronic CHF with 40lbs weight gain Clarify which of the following accurately represents the patient's respiratory status: * Alkalosis (please specify type: metabolic, respiratory, etc.) * Other (please specify) * Unable to determine Use of terms such as suspected, likely, concern for, or probable (associated with a specific diagnosis that is being evaluated, monitored, or treated as if it exists) are acceptable and can be coded in the inpatient setting, when documented at the time of discharge. Thank you, Teodora Shah MS, RN, CCRN Extension: [phone] Please use your independent medical judgment in providing your response. THIS QUERY IS PART OF THE PERMANENT MEDICAL RECORD Provider Response: Other Other Diagnosis: alkalosis -possible .
[2022-07-12 11:38] LABS: Glucose, Whole Blood 303 mg/dL (60-115)
--- NOTE | 2022-07-12 11:56 | MHC.CM.PN ---
Per MD rounds no discharge today. Patient continues on a lasix gtt. She is requiring increased rate of supplemental oxygen. Currently 4lO2 via [place]. Home o2 2L via [place] baseline. DP home with resumption of [facility]. Pt will arrange for transportation home @ discharge.
[2022-07-12] MEDS: metOLazone 5 MG TABLET PO (12:10)
--- NOTE | 2022-07-12 13:15 | P.PNIM_ITS ---
Subjective Subjective Date of Service: 07/12/22 Interval History: f/u for worsening edema secondary to CHF exacerbation Review of Systems continue have high urine output, legs still swollen no fevers or chills Physical Exam Vital Signs: Vital Signs: Last Vital Signs Temp 96.8 F 07/12/22 08:00 Pulse 92 07/12/22 11:39 Resp 18 07/12/22 11:39 BP 155/65 H 07/12/22 08:00 Pulse Ox 91 L 07/12/22 08:00 O2 Del Method 07/12/22 08:00 O2 Flow Rate 4.0 07/12/22 08:00 Oxygen Flow Rate 4 07/10/22 00:00 BMI result Body Mass Index 43.7 ?General: AO X 3, no acute distress Resp: rales at bases CVS: S1,S2,RRR, 3 +pedal edema GI: +BS, NT, no distention Skin:? bilateral stasis dermatitis Neuro:? motor grossly intact Psych: appropriate affect Objective Data Active Medications Acetaminophen (Acetaminophen 325 Mg Tablet) 650 mg PO Q6H PRN PRN Reason: Pain, Mild (Pain Scale 1-3) Albuterol Sulfate (Albuterol Sulfate 90 Mcg 8 Gm Inhaler) 2 puff INHALE Q6H PRN PRN Reason: shortness of breath or wheezing Albuterol/Ipratropium (Albuterol/Iprat 2.5/0.5mg 3 Ml Ampul.Neb) 3 ml INHALE RQ4H WHILE AWAKE ON LICENSE OF [facility] Last Admin: 07/12/22 11:38 Dose: 3 ml Documented By: JORDI Allopurinol (Allopurinol 100 Mg Tablet) 100 mg PO DAILY ON LICENSE OF [facility] Last Admin: 07/12/22 08:14 Dose: 100 mg Documented By: JOANIE Dextrose (Dextrose 50 % 25 Gm/50 Ml Syringe) 25 gm IVPUSH Q15M PRN; Protocol PRN Reason: per Hypoglycemia Standing Ord. Docusate Sodium (Docusate Sodium 100 Mg Capsule) 100 mg PO DAILY PRN PRN Reason: Constipation Docusate Sodium (Docusate Sodium 100 Mg Capsule) 100 mg PO DAILY ON LICENSE OF [facility] Last Admin: 07/12/22 08:14 Dose: 100 mg Documented By: JOANIE Empagliflozin (Empagliflozin 10 Mg Tablet) 10 mg PO DAILY ON LICENSE OF [facility] Last Admin: 07/12/22 08:13 Dose: 10 mg Documented By: JOANIE Ferrous Sulfate (Ferrous Sulfate 324 Mg Tablet.Dr) 324 mg PO DAILY ON LICENSE OF [facility] Last Admin: 07/12/22 08:13 Dose: 324 mg Documented By: JOANIE Fluticasone Propionate (Fluticasone Propionate Nasal 16 Gm [place]) 1 spray NOSTRIL-B BID ON LICENSE OF [facility] Last Admin: 07/12/22 10:57 Dose: 1 spray Documented By: JOANIE Fluticasone/Vilanterol (Fluticasone/Vilanterol 200/25 Blst.W.Dev) 1 puff INHALE RDAILY ON LICENSE OF [facility] Last Admin: 07/12/22 07:49 Dose: Not Given Documented By: JORDI Non-Admin Reason: Patient Refused Gabapentin (Gabapentin 300 Mg Capsule) 300 mg PO TID ON LICENSE OF [facility] Last Admin: 07/12/22 08:13 Dose: 300 mg Documented By: JOANIE Glucose (Glucose Gel 15 Gm Gel..Gram.) 15 gm PO Q15M PRN; Protocol PRN Reason: per Hypoglycemia Standing Ord. Furosemide 200 mg/ Sodium (Chloride) 100 mls @ 5 mls/hr IVCONT .Q20H ON LICENSE OF [facility] Last Admin: 07/11/22 20:54 Dose: 10 mg/hr, 5 mls/hr Documented By: SHIVANI Insulin Glargine (Insulin Glargine,Hum.Rec.Anlog 100 Unit/Ml 10 Ml Vial) 25 unit SUBCUT DAILY ON LICENSE OF [facility] Last Admin: 07/12/22 08:15 Dose: 25 unit Documented By: JOANIE Insulin Human Lispro (Insulin Lispro 100 Unit/Ml 3 Ml Vial) 0 unit SUBCUT QIDACHS ON LICENSE OF [facility]; Protocol Last Admin: 07/12/22 12:02 Dose: 8 unit Documented By: JOANIE Loratadine (Loratadine 10 Mg Tablet) 10 mg PO DAILY ON LICENSE OF [facility] Last Admin: 07/12/22 08:13 Dose: 10 mg Documented By: JOANIE Metoprolol Tartrate (Metoprolol Tartrate 12.5 Mg Halftab) 12.5 mg PO Q6H ON LICENSE OF [facility]; Protocol Last Admin: 07/12/22 08:15 Dose: 12.5 mg Documented By: JOANIE Multivitamins/Vitamin C (Multivitamin Tablet) 1 tab PO DAILY ON LICENSE OF [facility] Last Admin: 07/12/22 08:13 Dose: 1 tab Documented By: JOANIE Ondansetron HCl (Ondansetron Hcl 4 Mg/2 Ml Vial) 4 mg IVPUSH Q8H PRN PRN Reason: Nausea and Vomiting Pharmacy Consult (Consult Rx Perform Med Rec) 1 each MISCELLANE ONCE PRN PRN Reason: Consult order Potassium Chloride (Potassium Chloride Er 20 Meq Tab.Er.Prt) 40 meq PO BID ON LICENSE OF [facility] Last Admin: 07/12/22 08:14 Dose: 40 meq Documented By: JOANIE Potassium Chloride (Potassium Chloride Packet 20 Meq Packet) 40 meq PO BID ON LICENSE OF [facility] Last Admin: 07/12/22 08:14 Dose: 40 meq Documented By: JOANIE Pravastatin Sodium (Pravastatin Sodium 20 Mg Tablet) 20 mg PO BEDTIME ON LICENSE OF [facility] Last Admin: 07/11/22 20:48 Dose: 20 mg Documented By: SHIVANI Psyllium Hydrophilic Mucilloid (Psyllium Seed 3.4 Gm Powd.Pack) 3.4 gm PO DAILY ON LICENSE OF [facility] Last Admin: 07/12/22 08:15 Dose: 3.4 gm Documented By: JOANIE Rivaroxaban (Rivaroxaban 15 Mg Tablet) 15 mg PO DAILY@1700 ON LICENSE OF [facility] Last Admin: 07/11/22 16:28 Dose: 15 mg Documented By: GRAEME Sodium Chloride (0.9 % Sodium Chloride Flush 3 Ml Syringe) 3 ml IVFLUSH QSHIFT ON LICENSE OF [facility] Last Admin: 07/12/22 08:17 Dose: Not Given Documented By: JOANIE Non-Admin Reason: IV Running Spironolactone (Spironolactone 25 Mg Tablet) 25 mg PO DAILY ON LICENSE OF [facility]; Protocol Last Admin: 07/12/22 08:13 Dose: 25 mg Documented By: JOANIE Tiotropium [place] (Tiotropium [place] 18 Mcg Cap.W.Dev) 1 puff INHALE RDAILY ON LICENSE OF [facility] Last Admin: 07/12/22 07:48 Dose: 1 puff Documented By: JORDI Vitamin D (Cholecalciferol (Vitamin D3) 25 Mcg Tablet) 25 mcg PO DAILY ON LICENSE OF [facility] Last Admin: 07/12/22 08:13 Dose: 25 mcg Documented By: JOANIE Zinc Sulfate (Zinc Sulfate 220 Mg Capsule) 220 mg PO DAILY [facility] Last Admin: 07/12/22 08:12 Dose: 220 mg Documented By: JOANIE Labs CBC & Chem 7: 07/04/22 10:23 07/12/22 06:08 Labs: Laboratory Results - last 24 hr 07/11/22 07/11/22 07/12/22 16:04 20:13 06:08 Anion Gap Estim Creat Clear Calc Estimated GFR POC Glucose 293 H 228 H Random Glucose Calcium B-Natriuretic Peptide 540 H 07/12/22 07/12/22 07/12/22 06:08 07:26 11:21 Anion Gap 15 Estim Creat Clear Calc 50.9 Estimated GFR 41 POC Glucose 232 H 303 H Random Glucose 227 H Calcium 8.9 B-Natriuretic Peptide Assessment and Plan (1) Acute on chronic diastolic (congestive) heart failure: Status: Acute (2) CHF (congestive heart failure): Status: Acute (3) Hypokalemia: Status: Acute Plan 72-year-old female with past medical history significant for diastolic heart failure, pulmonary hypertension, tricuspid valve regurgitation, AFib, COPD, HLD, and DM2 who presents to the ED with worsening edema over the past 2 weeks.?She was admitted for acute exacerbation of heart failure and treated with aggressive diuresising. # acute? on chronic diastolic CHF exacerbation with excess of 40 Ib weight gain - negative 19liter fluid balanc,weight lost appox 30 lbs -continue IV lasis drip,also has alkalosis -replace K as needed, doesn't want IV K -Continue Aldactone, Jardiance, metoprolol,added potassium .mag normal,will add metolazone. -follow I/O, weight, limit salt # DM2--continue Jardiance, SSI, Lantus # HTN--BP on low side, monitor closely #Permanent AFIB--metoprolol for rate, Xarelto for stroke prevention # CKD3-- Cr 1.2 (baseline) #HypOkaelmia-- d/t? diuretics, replace with oral, she doesn't want IV K, mag is normal Full code Attending:? Dr. Walsh DVT prophylaxis:Xarelto Due to patient's need for aggressive IV diuretics for acute CHF, patient will require continued hospitalization. Time Spent With Patient Time: Total time managing care of this patient today ____ minutes. Quality Stroke Does the patient have a stroke diagnosis?: No VTE Prior VTE?: No VTE Risk Level:: Medical - moderate - high VTE Device Contraindication: Treatment Not Indicated VTE Drug Contraindication: N/A - Med Ordered
[2022-07-12 15:42] LABS: Glucose, Whole Blood 319 mg/dL (60-115)
[2022-07-12] MEDS: Rivaroxaban 15 MG TABLET PO (15:51)
[2022-07-12 20:02] LABS: Glucose, Whole Blood 329 mg/dL (60-115)
[2022-07-12] MEDS: Pravastatin Sodium 20 MG TABLET PO (20:46)
[2022-07-12] MEDS: Furosemide 200 MG in 0.9 % Sodium Chloride 80 ML IVCONT (20:53)
[2022-07-13] VITALS (10 sets, daily range): BP systolic 101–137; BP diastolic 55–72; PULSE 65–126; RESP 16–20; TEMP 36.3–36.9; O2SAT 92–95
[2022-07-13 07:00] LABS: B Type Natriuretic Peptide 563 pg/mL (<100)
[2022-07-13 07:34] LABS: Glucose, Whole Blood 244 mg/dL (60-115)
[2022-07-13] MEDS: Fluticasone Propionate Nasal 16 GM SPRAY 1 SPRAY NOSTRIL-B ×2 (07:53→20:56)
[2022-07-13] MEDS: Loratadine 10 MG TABLET PO (07:53)
[2022-07-13] MEDS: Insulin Lispro 100 UNIT/ML 3 ML VIAL SUBCUT ×4 (07:53→20:55)
[2022-07-13] MEDS: Multivitamin TABLET 1 TAB PO (07:54)
[2022-07-13] MEDS: Potassium Chloride ER 20 MEQ TAB.ER.PRT 40 MEQ PO ×2 (07:54→20:56)
[2022-07-13] MEDS: Spironolactone 25 MG TABLET PO ×2 (07:54→15:32)
[2022-07-13] MEDS: Ferrous Sulfate 324 MG TABLET.DR PO (07:55)
[2022-07-13] MEDS: allopurinoL 100 MG TABLET PO (07:55)
[2022-07-13] MEDS: Empagliflozin 10 MG TABLET PO (07:55)
[2022-07-13] MEDS: Metoprolol Tartrate 12.5 MG HALFTAB PO ×3 (07:55→20:56)
[2022-07-13] MEDS: Gabapentin 300 MG CAPSULE PO ×3 (07:56→20:55)
[2022-07-13] MEDS: Zinc Sulfate 220 MG CAPSULE PO (07:56)
[2022-07-13] MEDS: Cholecalciferol (Vitamin D3) 25 MCG TABLET PO (07:56)
[2022-07-13] MEDS: Potassium Chloride Packet 20 MEQ PACKET 40 MEQ PO ×3 (07:56→20:56)
[2022-07-13] MEDS: Albuterol/Iprat 2.5/0.5MG 3 ML AMPUL.NEB INHALE ×4 (07:59→19:48)
[2022-07-13 09:13] LABS: Blood Urea Nitrogen 45 mg/dL (9-16); Calcium 9.2 mg/dL (8.4-10.2); Creatinine Clr Calc Pharmacy 48.3; Estimated Glomerular Filt Rate 39; Glucose Random 221 mg/dL (60-115)
[2022-07-13 09:20] LABS: Anion Gap 19 (12-20); Carbon Dioxide 36 mmol/L (22-29); Chloride 87 mmol/L (96-108); Potassium 3.2 mmol/L (3.3-5.1); Sodium 139 mmol/L (135-145)
[2022-07-13 09:22] LABS: B Type Natriuretic Peptide 457 pg/mL (<100)
[2022-07-13] MEDS: Insulin Glargine,Hum.rec.anlog 100 UNIT/ML 10 ML VIAL 35 UNIT SUBCUT (09:38)
[2022-07-13] MEDS: Docusate Sodium 100 MG CAPSULE PO (09:40)
--- NOTE | 2022-07-13 10:58 | HO.PM.IMPN ---
Subjective Subjective Date of Service: 07/13/22 Interval History: f/u for worsening edema secondary to CHF exacerbation Review of Systems still leg swellin last 24 hx 1.6 liter neg says has nasal congestion no fevers or chills Physical Exam Vital Signs: Vital Signs: Last Vital Signs Temp 97.6 F 07/13/22 07:16 Pulse 112 H 07/13/22 08:00 Resp 18 07/13/22 08:00 BP 105/55 L 07/13/22 07:16 Pulse Ox 92 07/13/22 07:16 O2 Del Method 07/13/22 07:16 O2 Flow Rate 4 07/13/22 07:16 Oxygen Flow Rate 4 07/10/22 00:00 BMI result Body Mass Index 43.7 ?General: AO X 3, no acute distress Resp: rales at bases CVS: S1,S2,RRR, 3 +pedal edema GI: +BS, NT, no distention Skin:? bilateral stasis dermatitis,leg swellin Neuro:? motor grossly intact Psych: appropriate affect Objective Data Active Medications Acetaminophen (Acetaminophen 325 Mg Tablet) 650 mg PO Q6H PRN PRN Reason: Pain, Mild (Pain Scale 1-3) Albuterol Sulfate (Albuterol Sulfate 90 Mcg 8 Gm Inhaler) 2 puff INHALE Q6H PRN PRN Reason: shortness of breath or wheezing Albuterol/Ipratropium (Albuterol/Iprat 2.5/0.5mg 3 Ml Ampul.Neb) 3 ml INHALE RQ4H WHILE AWAKE [facility] Last Admin: 07/13/22 07:59 Dose: 3 ml Documented By: DESMOND Allopurinol (Allopurinol 100 Mg Tablet) 100 mg PO DAILY [facility] Last Admin: 07/13/22 07:55 Dose: 100 mg Documented By: ANTHONY Dextrose (Dextrose 50 % 25 Gm/50 Ml Syringe) 25 gm IVPUSH Q15M PRN; Protocol PRN Reason: per Hypoglycemia Standing Ord. Docusate Sodium (Docusate Sodium 100 Mg Capsule) 100 mg PO DAILY PRN PRN Reason: Constipation Docusate Sodium (Docusate Sodium 100 Mg Capsule) 100 mg PO DAILY [facility] Last Admin: 07/13/22 09:40 Dose: 100 mg Documented By: ANTHONY Empagliflozin (Empagliflozin 10 Mg Tablet) 10 mg PO DAILY [facility] Last Admin: 07/13/22 07:55 Dose: 10 mg Documented By: ANTHONY Ferrous Sulfate (Ferrous Sulfate 324 Mg Tablet.Dr) 324 mg PO DAILY [facility] Last Admin: 07/13/22 07:55 Dose: 324 mg Documented By: ANTHONY Fluticasone Propionate (Fluticasone Propionate Nasal 16 Gm [place]) 1 spray NOSTRIL-B BID [facility] Last Admin: 07/13/22 07:53 Dose: 1 spray Documented By: ANTHONY Fluticasone/Vilanterol (Fluticasone/Vilanterol 200/25 Blst.W.Dev) 1 puff INHALE RDAILY [facility] Last Admin: 07/13/22 08:00 Dose: Not Given Documented By: DESMOND Non-Admin Reason: Patient Refused Gabapentin (Gabapentin 300 Mg Capsule) 300 mg PO TID [facility] Last Admin: 07/13/22 07:56 Dose: 300 mg Documented By: ANTHONY Glucose (Glucose Gel 15 Gm Gel..Gram.) 15 gm PO Q15M PRN; Protocol PRN Reason: per Hypoglycemia Standing Ord. Furosemide 200 mg/ Sodium (Chloride) 100 mls @ 5 mls/hr IVCONT .Q20H [facility] Last Admin: 07/12/22 20:53 Dose: 10 mg/hr, 5 mls/hr Documented By: SHIVANI Insulin Glargine (Insulin Glargine,Hum.Rec.Anlog 100 Unit/Ml 10 Ml Vial) 35 unit SUBCUT DAILY [facility] Last Admin: 07/13/22 09:38 Dose: 35 unit Documented By: ANTHONY Insulin Human Lispro (Insulin Lispro 100 Unit/Ml 3 Ml Vial) 0 unit SUBCUT QIDACHS [facility]; Protocol Last Admin: 07/13/22 07:53 Dose: 4 unit Documented By: ANTHONY Loratadine (Loratadine 10 Mg Tablet) 10 mg PO DAILY [facility] Last Admin: 07/13/22 07:53 Dose: 10 mg Documented By: ANTHONY Metoprolol Tartrate (Metoprolol Tartrate 12.5 Mg Halftab) 12.5 mg PO Q6H [facility]; Protocol Last Admin: 07/13/22 07:55 Dose: 12.5 mg Documented By: ANTHONY Multivitamins/Vitamin C (Multivitamin Tablet) 1 tab PO DAILY [facility] Last Admin: 07/13/22 07:54 Dose: 1 tab Documented By: ANTHONY Ondansetron HCl (Ondansetron Hcl 4 Mg/2 Ml Vial) 4 mg IVPUSH Q8H PRN PRN Reason: Nausea and Vomiting Pharmacy Consult (Consult Rx Perform Med Rec) 1 each MISCELLANE ONCE PRN PRN Reason: Consult order Potassium Chloride (Potassium Chloride Er 20 Meq Tab.Er.Prt) 40 meq PO BID [facility] Last Admin: 07/13/22 07:54 Dose: 40 meq Documented By: ANTHONY Potassium Chloride (Potassium Chloride Packet 20 Meq Packet) 40 meq PO BID [facility] Last Admin: 07/13/22 07:56 Dose: 40 meq Documented By: ANTHONY Pravastatin Sodium (Pravastatin Sodium 20 Mg Tablet) 20 mg PO BEDTIME [facility] Last Admin: 07/12/22 20:46 Dose: 20 mg Documented By: SHIVANI Psyllium Hydrophilic Mucilloid (Psyllium Seed 3.4 Gm Powd.Pack) 3.4 gm PO DAILY [facility] Last Admin: 07/13/22 07:57 Dose: 3.4 gm Documented By: ANTHONY Rivaroxaban (Rivaroxaban 15 Mg Tablet) 15 mg PO DAILY@1700 [facility] Last Admin: 07/12/22 15:51 Dose: 15 mg Documented By: JOANIE Sodium Chloride (0.9 % Sodium Chloride Flush 3 Ml Syringe) 3 ml IVFLUSH QSHIFT [facility] Last Admin: 07/13/22 07:53 Dose: Not Given Documented By: ANTHONY Non-Admin Reason: IV Running Spironolactone (Spironolactone 25 Mg Tablet) 25 mg PO DAILY [facility]; Protocol Last Admin: 07/13/22 07:54 Dose: 25 mg Documented By: ANTHONY Tiotropium [place] (Tiotropium [place] 18 Mcg Cap.W.Dev) 1 puff INHALE RDAILY [facility] Last Admin: 07/13/22 08:00 Dose: Not Given Documented By: DESMOND Non-Admin Reason: Med Not Available Vitamin D (Cholecalciferol (Vitamin D3) 25 Mcg Tablet) 25 mcg PO DAILY [facility] Last Admin: 07/13/22 07:56 Dose: 25 mcg Documented By: ANTHONY Zinc Sulfate (Zinc Sulfate 220 Mg Capsule) 220 mg PO DAILY [facility] Last Admin: 07/13/22 07:56 Dose: 220 mg Documented By: ANTHONY Labs CBC & Chem 7: 07/04/22 10:23 07/13/22 08:07 Labs: Laboratory Results - last 24 hr 07/12/22 07/12/22 07/12/22 11:21 15:38 19:58 Anion Gap Estim Creat Clear Calc Estimated GFR POC Glucose 303 H 319 H 329 H Random Glucose Calcium B-Natriuretic Peptide 07/13/22 07/13/22 07/13/22 05:44 07:15 08:07 Anion Gap 19 Estim Creat Clear Calc 48.3 Estimated GFR 39 POC Glucose 244 H Random Glucose 221 H Calcium 9.2 B-Natriuretic Peptide 563 H 07/13/22 08:07 Anion Gap Estim Creat Clear Calc Estimated GFR POC Glucose Random Glucose Calcium B-Natriuretic Peptide 457 H Assessment and Plan (1) Hypokalemia: Status: Acute (2) Acute on chronic diastolic (congestive) heart failure: Status: Acute (3) Edema: Status: Acute Plan 72-year-old female with past medical history significant for diastolic heart failure, pulmonary hypertension, tricuspid valve regurgitation, AFib, COPD, HLD, and DM2 who presents to the ED with worsening edema over the past 2 weeks.?She was admitted for acute exacerbation of heart failure and treated with aggressive diuresising. # acute? on chronic diastolic CHF exacerbation with excess of 40 Ib weight gain - negative 21liter? fluid balanc,weight lost appox 30 lbs -continue IV lasis drip,also has alkalosis -replace K as needed, doesn't want IV K -Continue Aldactone, Jardiance, metoprolol,added potassium .mag normal,given metolazone yesterday. -follow I/O, weight, limit salt she refuses to see cardiology today # DM2--continue Jardiance, SSI, Lantus # HTN--BP on low side, monitor closely #Permanent AFIB--metoprolol for rate, Xarelto for stroke prevention # CKD3-- Cr 1.2 (baseline) #HypOkaelmia-- d/t? diuretics, replace with oral, she doesn't want IV K, mag is normal. morbid obesity-encouraged to lose weight. nasal congestion-cotninue loratidine,fluticasone nasal spray,will add azlastine. Full code Attending:? Dr. Walsh DVT prophylaxis:Xarelto Due to patient's need for aggressive IV diuretics for acute CHF, patient will require continued hospitalization. Time Spent With Patient Time: Total time managing care of this patient today ____ minutes. Quality Stroke Does the patient have a stroke diagnosis?: No VTE Prior VTE?: No VTE Risk Level:: Medical - moderate - high VTE Device Contraindication: Treatment Not Indicated VTE Drug Contraindication: N/A - Med Ordered
[2022-07-13 11:16] LABS: Glucose, Whole Blood 320 mg/dL (60-115)
[2022-07-13] MEDS: Furosemide 200 MG in 0.9 % Sodium Chloride 80 ML IVCONT (13:01)
[2022-07-13] MEDS: metOLazone 5 MG TABLET PO (15:32)
[2022-07-13] MEDS: 0.9 % Sodium Chloride Flush 3 ML SYRINGE IVFLUSH ×2 (15:33→22:51)
[2022-07-13 16:28] LABS: Glucose, Whole Blood 289 mg/dL (60-115)
[2022-07-13] MEDS: Rivaroxaban 15 MG TABLET PO (16:34)
[2022-07-13 20:41] LABS: Glucose, Whole Blood 242 mg/dL (60-115)
[2022-07-13] MEDS: Pravastatin Sodium 20 MG TABLET PO (20:56)
[2022-07-13] MEDS: Azelastine HCl Nasal 137 MCG/Spray 30 ML 1 SPRAY NOSTRIL-B (20:56)
[2022-07-14] VITALS (7 sets, daily range): BP systolic 101–114; BP diastolic 55–69; PULSE 87–102; RESP 16–20; TEMP 36.4–36.8; O2SAT 9–97
[2022-07-14] MEDS: Metoprolol Tartrate 12.5 MG HALFTAB PO ×4 (04:04→20:32)
[2022-07-14 06:49] LABS: Anion Gap 14 (12-20); Blood Urea Nitrogen 45 mg/dL (9-16); Carbon Dioxide 41 mmol/L (22-29); Chloride 86 mmol/L (96-108); Creatinine Clr Calc Pharmacy 43.7; Estimated Glomerular Filt Rate 35; Glucose Random 231 mg/dL (60-115); Potassium 3.1 mmol/L (3.3-5.1); Sodium 138 mmol/L (135-145)
[2022-07-14] MEDS: Albuterol/Iprat 2.5/0.5MG 3 ML AMPUL.NEB INHALE ×3 (07:58→19:30)
[2022-07-14 08:12] LABS: Glucose, Whole Blood 207 mg/dL (60-115)
[2022-07-14 08:21] LABS: Magnesium 2.6 mg/dL (1.6-2.6)
[2022-07-14] MEDS: Gabapentin 300 MG CAPSULE PO ×3 (08:23→20:32)
[2022-07-14] MEDS: Spironolactone 25 MG TABLET 50 MG PO (08:23)
[2022-07-14] MEDS: allopurinoL 100 MG TABLET PO (08:23)
[2022-07-14] MEDS: Zinc Sulfate 220 MG CAPSULE PO (08:23)
[2022-07-14] MEDS: Ferrous Sulfate 324 MG TABLET.DR PO (08:23)
[2022-07-14] MEDS: Potassium Chloride ER 20 MEQ TAB.ER.PRT 40 MEQ PO ×2 (08:24→20:32)
[2022-07-14] MEDS: Multivitamin TABLET 1 TAB PO (08:24)
[2022-07-14] MEDS: Empagliflozin 10 MG TABLET PO (08:24)
[2022-07-14] MEDS: Loratadine 10 MG TABLET PO (08:24)
[2022-07-14] MEDS: Docusate Sodium 100 MG CAPSULE PO (08:24)
[2022-07-14] MEDS: Insulin Lispro 100 UNIT/ML 3 ML VIAL SUBCUT ×7 (08:24→20:33)
[2022-07-14] MEDS: Cholecalciferol (Vitamin D3) 25 MCG TABLET PO (08:24)
[2022-07-14] MEDS: 0.9 % Sodium Chloride Flush 3 ML SYRINGE IVFLUSH ×3 (08:25→20:34)
[2022-07-14] MEDS: Insulin Glargine,Hum.rec.anlog 100 UNIT/ML 10 ML VIAL 40 UNIT SUBCUT (08:29)
[2022-07-14 08:39] LABS: Estimated Average Glucose 203 mg/dL; Hemoglobin A1c % 8.7 %
[2022-07-14] MEDS: Potassium Chloride Packet 20 MEQ PACKET 40 MEQ PO ×3 (10:24→20:33)
--- NOTE | 2022-07-14 10:24 | P.PNCA_ITS ---
Subjective Subjective Date of Service: 07/14/22 Principal diagnosis: Heart failure Interval history: Leg swelling is improved from before. Shortness of breath improved. Still does not feel like back to her baseline. Review of Systems Review of Systems Yes all other systems are reviewed and are negative Constitutional: Reports as per HPI Eyes: Reports as per HPI Reports as per HPI Cardiovascular: Reports as per HPI, Denies acrocyanosis, Denies cool extremities, Denies chest pain, Reports leg edema, Denies lightheadedness, D enies palpitations, Reports dyspnea and Reports dyspnea on exertion Respiratory: Reports as per HPI, Reports no additional respiratory complaints, Reports dyspnea and Reports dyspnea on exertion Gastrointestinal: Reports as per HPI and Reports no additional gastrointestinal complaints Genitourinary: Reports as per HPI Musculoskeletal: Reports no additional musculoskeletal complaints and Reports as per HPI Skin/Breast: Reports system reviewed and no additional complaints, except as docu Reports system reviewed and no additional complaints, except as documented and Reports as per HPI Psychiatric: Reports no additional psychiatric complaints and Reports as per HPI Endocrine: Reports no additional endocrine complaints, Reports as per HPI and Denies palpitations Hematologic/Lymphatic: Reports no additional hematologic/lymphatic complaints and Reports as per HPI Allergic/Immunologic: Reports no additional allergic/immunologic complaints and Reports as per HPI Physical Exam Vital Signs: Last Vital Signs Temp 97.6 F 07/14/22 07:48 Pulse 102 H 07/14/22 07:48 Resp 18 07/14/22 08:00 BP 101/69 07/14/22 07:48 Pulse Ox 9 L 07/14/22 07:48 O2 Del Method 07/14/22 07:48 O2 Flow Rate 4 07/14/22 07:48 Oxygen Flow Rate 4 07/10/22 00:00 BMI result Body Mass Index 43.7 Const General: comfortable and no acute distress Orientation/consciousness: patient oriented x3 HEENT Other: Unremarkable Head: Yes normal to inspection Neck Neck: Yes normal visual inspection Chest Chest palpation & inspection: normal inspection of the chest Resp Auscultation: diminished lung sounds (few inspiratory crackles) Cardio Palpation: normal PMI Heart sounds: S1 normal heart sound present, S2 normal heart sound present, no gallops, no murmurs and no rubs GI Palpation (GI): Soft to palpation Back/Spine/Pelvis Other: unremarkable Skin General skin exam: no rashes or lesions noted Neuro General: patient oriented x3 Extrem Other: 1-2+ leg swelling bilaterally, but likely has large legs to start with. General: Yes normal to inspection Psych Mental Status: mental status grossly normal Objective Labs and Meds Result diagrams: 07/04/22 10:23 07/14/22 05:36 Lab results: Laboratory Results - last 24 hr 07/13/22 07/13/22 07/13/22 11:07 15:46 20:13 Sodium Potassium Chloride Carbon Dioxide Anion Gap BUN Creatinine Estim Creat Clear Calc Estimated GFR POC Glucose 320 H 289 H 242 H Random Glucose Estimat Average Glucose Hemoglobin A1c % Calcium Magnesium 07/14/22 07/14/22 07/14/22 05:32 05:36 07:49 Sodium 138 Potassium 3.1 L Chloride 86 L Carbon Dioxide 41 H* Anion Gap 14 BUN 45 H Creatinine 1.48 H Estim Creat Clear Calc 43.7 Estimated GFR 35 POC Glucose 207 H Random Glucose 231 H Estimat Average Glucose 203 Hemoglobin A1c % 8.7 Calcium 9.0 Magnesium 2.6 Progress Note: A&P Assessment and plan (1) Acute on chronic right-sided heart failure: Status: Acute (2) Acute on chronic diastolic (congestive) heart failure: Status: Acute (3) Chronic atrial fibrillation: Status: Acute Plan Based on input output data, she is -27L since admission. BUN is 45. Creatinine 1.48. Potassium is diminished at 3.1. Chloride 86. Carbon dioxide 41. She has diuresed significantly since the time of admission. Some volume overload still present but difficult to assess as she is also overweight to start with and likely has large legs at baseline. Also not clear how much CardioMEMS helping as her heart failure is more right- sided than left-sided. Could hold IV Lasix drip today and see how she does with regard to renal function and electrolytes. No metolazone either. To be reassessed tomorrow for further diuretic management. For atrial fibrillation, she is on beta-blockers and Xarelto. Discussed with Dr. Yip. Time Spent With Patient Time: Total time managing care of this patient today 35 minutes. Progress Note: Quality Stroke Does the patient have a stroke diagnosis?: No Procedures Date of Service Date of Service: 07/14/22
[2022-07-14] MEDS: guaiFENesin LA 600 MG TAB.ER.12H PO (10:27)
[2022-07-14 12:07] LABS: Glucose, Whole Blood 401 mg/dL (60-115)
--- NOTE | 2022-07-14 12:16 | P.PNIM_ITS ---
Subjective Subjective Date of Service: 07/14/22 Interval History: f/u for worsening edema secondary to CHF exacerbation Review of Systems still leg swellin around 26liter neg says has nasal congestion no fevers or chills Physical Exam Vital Signs: Vital Signs: Last Vital Signs Temp 97.6 F 07/14/22 07:48 Pulse 102 H 07/14/22 07:48 Resp 18 07/14/22 08:00 BP 101/69 07/14/22 07:48 Pulse Ox 9 L 07/14/22 07:48 O2 Del Method 07/14/22 07:48 O2 Flow Rate 4 07/14/22 07:48 Oxygen Flow Rate 4 07/10/22 00:00 BMI result Body Mass Index 43.7 General: AO X 3, no acute distress Resp: rales at bases CVS: S1,S2,RRR, 3 +pedal edema GI: +BS, NT, no distention Skin:? bilateral stasis dermatitis,leg swellin Neuro:? motor grossly intact Psych: appropriate affect Objective Data Active Medications Acetaminophen (Acetaminophen 325 Mg Tablet) 650 mg PO Q6H PRN PRN Reason: Pain, Mild (Pain Scale 1-3) Albuterol Sulfate (Albuterol Sulfate 90 Mcg 8 Gm Inhaler) 2 puff INHALE Q6H PRN PRN Reason: shortness of breath or wheezing Albuterol/Ipratropium (Albuterol/Iprat 2.5/0.5mg 3 Ml Ampul.Neb) 3 ml INHALE RQ4H WHILE AWAKE [facility] Last Admin: 07/14/22 11:57 Dose: Not Given Documented By: DESMOND Non-Admin Reason: pt eating lunch at this time pt will call Allopurinol (Allopurinol 100 Mg Tablet) 100 mg PO DAILY [facility] Last Admin: 07/14/22 08:23 Dose: 100 mg Documented By: ANTHONY Azelastine HCl (Azelastine Hcl Nasal 137 Mcg/[place] 30 Ml) 1 spray NOSTRIL-B BID [facility] Last Admin: 07/14/22 08:28 Dose: Not Given Documented By: ANTHONY Non-Admin Reason: Patient Refused Dextrose (Dextrose 50 % 25 Gm/50 Ml Syringe) 25 gm IVPUSH Q15M PRN; Protocol PRN Reason: per Hypoglycemia Standing Ord. Docusate Sodium (Docusate Sodium 100 Mg Capsule) 100 mg PO DAILY PRN PRN Reason: Constipation Docusate Sodium (Docusate Sodium 100 Mg Capsule) 100 mg PO DAILY [facility] Last Admin: 07/14/22 08:24 Dose: 100 mg Documented By: ANTHONY Empagliflozin (Empagliflozin 10 Mg Tablet) 10 mg PO DAILY [facility] Last Admin: 07/14/22 08:24 Dose: 10 mg Documented By: ANTHONY Ferrous Sulfate (Ferrous Sulfate 324 Mg Tablet.Dr) 324 mg PO DAILY [facility] Last Admin: 07/14/22 08:23 Dose: 324 mg Documented By: ANTHONY Fluticasone Propionate (Fluticasone Propionate Nasal 16 Gm [place]) 1 spray NOSTRIL-B BID [facility] Last Admin: 07/14/22 08:28 Dose: Not Given Documented By: ANTHONY Non-Admin Reason: Patient Refused Fluticasone/Vilanterol (Fluticasone/Vilanterol 200/25 Blst.W.Dev) 1 puff INHALE RDAILY [facility] Last Admin: 07/14/22 11:56 Dose: Not Given Documented By: DESMOND Non-Admin Reason: Patient Refused Gabapentin (Gabapentin 300 Mg Capsule) 300 mg PO TID [facility] Last Admin: 07/14/22 08:23 Dose: 300 mg Documented By: ANTHONY Glucose (Glucose Gel 15 Gm Gel..Gram.) 15 gm PO Q15M PRN; Protocol PRN Reason: per Hypoglycemia Standing Ord. Furosemide 200 mg/ Sodium (Chloride) 100 mls @ 5 mls/hr IVCONT .Q20H [facility] Last Infusion: 07/14/22 11:34 Dose: 0 mg/hr, 0 mls/hr Documented By: ANTHONY Insulin Glargine (Insulin Glargine,Hum.Rec.Anlog 100 Unit/Ml 10 Ml Vial) 40 unit SUBCUT DAILY [facility] Last Admin: 07/14/22 08:29 Dose: 40 unit Documented By: ANTHONY Insulin Human Lispro (Insulin Lispro 100 Unit/Ml 3 Ml Vial) 0 unit SUBCUT QIDACHS [facility]; Protocol Last Admin: 07/14/22 11:34 Dose: 14 unit Documented By: ANTHONY Insulin Human Lispro (Insulin Lispro 100 Unit/Ml 3 Ml Vial) 3 unit SUBCUT QIDACHS [facility] Last Admin: 07/14/22 11:34 Dose: 3 unit Documented By: ANTHONY Loratadine (Loratadine 10 Mg Tablet) 10 mg PO DAILY [facility] Last Admin: 07/14/22 08:24 Dose: 10 mg Documented By: ANTHONY Metoprolol Tartrate (Metoprolol Tartrate 12.5 Mg Halftab) 12.5 mg PO Q6H [facility]; Protocol Last Admin: 07/14/22 08:24 Dose: 12.5 mg Documented By: ANTHONY Multivitamins/Vitamin C (Multivitamin Tablet) 1 tab PO DAILY [facility] Last Admin: 07/14/22 08:24 Dose: 1 tab Documented By: ANTHONY Ondansetron HCl (Ondansetron Hcl 4 Mg/2 Ml Vial) 4 mg IVPUSH Q8H PRN PRN Reason: Nausea and Vomiting Pharmacy Consult (Consult Rx Perform Med Rec) 1 each MISCELLANE ONCE PRN PRN Reason: Consult order Potassium Chloride (Potassium Chloride Er 20 Meq Tab.Er.Prt) 40 meq PO BID [facility] Last Admin: 07/14/22 08:24 Dose: 40 meq Documented By: ANTHONY Potassium Chloride (Potassium Chloride Packet 20 Meq Packet) 40 meq PO BID [facility] Last Admin: 07/14/22 10:25 Dose: 40 meq Documented By: ANTHONY Pravastatin Sodium (Pravastatin Sodium 20 Mg Tablet) 20 mg PO BEDTIME [facility] Last Admin: 07/13/22 20:56 Dose: 20 mg Documented By: LAINEY-DRAKJ Psyllium Hydrophilic Mucilloid (Psyllium Seed 3.4 Gm Powd.Pack) 3.4 gm PO DAILY [facility] Last Admin: 07/14/22 08:24 Dose: 3.4 gm Documented By: ANTHONY Rivaroxaban (Rivaroxaban 15 Mg Tablet) 15 mg PO DAILY@1700 [facility] Last Admin: 07/13/22 16:34 Dose: 15 mg Documented By: ANTHONY Sodium Chloride (0.9 % Sodium Chloride Flush 3 Ml Syringe) 3 ml IVFLUSH QSHIFT [facility] Last Admin: 07/14/22 08:25 Dose: 3 ml Documented By: ANTHONY Spironolactone (Spironolactone 25 Mg Tablet) 50 mg PO DAILY [facility]; Protocol Last Admin: 07/14/22 08:23 Dose: 50 mg Documented By: ANTHONY Tiotropium [place] (Tiotropium [place] 18 Mcg Cap.W.Dev) 1 puff INHALE RDAILY [facility] Last Admin: 07/14/22 07:59 Dose: 1 puff Documented By: DESMOND Vitamin D (Cholecalciferol (Vitamin D3) 25 Mcg Tablet) 25 mcg PO DAILY [facility] Last Admin: 07/14/22 08:24 Dose: 25 mcg Documented By: ANTHONY Zinc Sulfate (Zinc Sulfate 220 Mg Capsule) 220 mg PO DAILY [facility] Last Admin: 07/14/22 08:23 Dose: 220 mg Documented By: ANTHONY Labs CBC & Chem 7: 07/04/22 10:23 07/14/22 05:36 Labs: Laboratory Results - last 24 hr 07/13/22 07/13/22 07/14/22 15:46 20:13 05:32 Anion Gap Estim Creat Clear Calc Estimated GFR POC Glucose 289 H 242 H Random Glucose Estimat Average Glucose 203 Hemoglobin A1c % 8.7 Calcium Magnesium 07/14/22 07/14/22 07/14/22 05:36 07:49 11:18 Anion Gap 14 Estim Creat Clear Calc 43.7 Estimated GFR 35 POC Glucose 207 H 401 H* Random Glucose 231 H Estimat Average Glucose Hemoglobin A1c % Calcium 9.0 Magnesium 2.6 Assessment and Plan (1) Hypokalemia: Status: Acute (2) Acute on chronic diastolic (congestive) heart failure: Status: Acute (3) Edema: Status: Acute Plan 72-year-old female with past medical history significant for diastolic heart failure, pulmonary hypertension, tricuspid valve regurgitation, AFib, COPD, HLD, and DM2 who presents to the ED with worsening edema over the past 2 weeks.?She was admitted for acute exacerbation of heart failure and treated with aggressive diuresising. # acute? on chronic diastolic CHF exacerbation with excess of 40 Ib weight gain - negative 26liter? fluid balanc,weight lost around 11kg hold IV lasix drip- has alkalosis/mild prerenal -replace K as needed, doesn't want IV K -give trial off lasix -since 26liter neg ,Continue Aldactone, Jardiance, metoprolol,added potassium .mag normal. -follow I/O, weight, limit salt # DM2--continue Jardiance, SSI, Lantus # HTN--BP on low side, monitor closely #Permanent AFIB--metoprolol for rate, Xarelto for stroke prevention # CKD3-- Cr 1.2 (baseline) #HypOkaelmia-- d/t? diuretics, replace with oral, she doesn't want IV K, mag is normal. morbid obesity-encouraged to lose weight. nasal congestion-cotninue loratidine,does not want fluticasone nasal spray and azlastine. added mucinex. Full code DVT prophylaxis:Xarelto inpatient need: for aggressive IV diuretics for acute CHF, patient will require continued hospitalization. Time Spent With Patient Time: Total time managing care of this patient today ____ minutes. Quality Stroke Does the patient have a stroke diagnosis?: No VTE Prior VTE?: No VTE Risk Level:: Medical - moderate - high VTE Device Contraindication: Treatment Not Indicated VTE Drug Contraindication: N/A - Med Ordered
[2022-07-14 15:52] LABS: Glucose, Whole Blood 429 mg/dL (60-115)
[2022-07-14] MEDS: Rivaroxaban 15 MG TABLET PO (15:54)
[2022-07-14 20:19] LABS: Glucose, Whole Blood 323 mg/dL (60-115)
[2022-07-14] MEDS: Pravastatin Sodium 20 MG TABLET PO (20:31)
[2022-07-15] VITALS (10 sets, daily range): BP systolic 88–128; BP diastolic 53–78; PULSE 76–99; RESP 15–20; TEMP 36.6–37; O2SAT 88–95; BMI 43.1
[2022-07-15] MEDS: Acetaminophen 325 MG TABLET 650 MG PO (02:32)
[2022-07-15] MEDS: Metoprolol Tartrate 12.5 MG HALFTAB PO ×3 (02:32→21:39)
[2022-07-15 06:44] LABS: Anion Gap 15 (12-20); Blood Urea Nitrogen 48 mg/dL (9-16); Carbon Dioxide 37 mmol/L (22-29); Chloride 89 mmol/L (96-108); Creatinine Clr Calc Pharmacy 46.8; Estimated Glomerular Filt Rate 38; Glucose Random 166 mg/dL (60-115); Potassium 4.8 mmol/L (3.3-5.1); Sodium 136 mmol/L (135-145)
[2022-07-15] MEDS: Zinc Sulfate 220 MG CAPSULE PO (07:59)
[2022-07-15] MEDS: Ferrous Sulfate 324 MG TABLET.DR PO (08:00)
[2022-07-15] MEDS: Loratadine 10 MG TABLET PO (08:00)
[2022-07-15] MEDS: Cholecalciferol (Vitamin D3) 25 MCG TABLET PO (08:00)
[2022-07-15] MEDS: Gabapentin 300 MG CAPSULE PO ×3 (08:00→21:40)
[2022-07-15] MEDS: Empagliflozin 10 MG TABLET PO (08:00)
[2022-07-15] MEDS: Insulin Glargine,Hum.rec.anlog 100 UNIT/ML 10 ML VIAL 40 UNIT SUBCUT (08:00)
[2022-07-15] MEDS: Multivitamin TABLET 1 TAB PO (08:00)
[2022-07-15] MEDS: Docusate Sodium 100 MG CAPSULE PO (08:00)
[2022-07-15] MEDS: allopurinoL 100 MG TABLET PO (08:00)
[2022-07-15] MEDS: Insulin Lispro 100 UNIT/ML 3 ML VIAL SUBCUT ×8 (08:01→21:39)
[2022-07-15] MEDS: 0.9 % Sodium Chloride Flush 3 ML SYRINGE IVFLUSH ×2 (08:08→15:18)
[2022-07-15] MEDS: Albuterol/Iprat 2.5/0.5MG 3 ML AMPUL.NEB INHALE ×4 (08:12→19:44)
[2022-07-15 08:53] LABS: Glucose, Whole Blood 214 mg/dL (60-115)
[2022-07-15] MEDS: guaiFENesin LA 600 MG TAB.ER.12H PO ×2 (10:20→21:40)
[2022-07-15] MEDS: Lidocaine 4 % Patch ADH..PATCH 1 PATCH TRANSDERMA (10:20)
--- NOTE | 2022-07-15 11:22 | HO.PM.IMPN ---
Subjective Subjective Date of Service: 07/15/22 Interval History: f/u for worsening edema secondary to CHF exacerbation Review of Systems sob seems similar to yesterday denies any chest pain or fever or chills says some back soarness from lying in bed. Physical Exam Vital Signs: Vital Signs: Last Vital Signs Temp 97.8 F 07/15/22 07:37 Pulse 78 07/15/22 08:45 Resp 18 07/15/22 08:45 BP 88/53 L 07/15/22 07:37 Pulse Ox 92 07/15/22 07:37 O2 Del Method 07/15/22 07:37 O2 Flow Rate 3 07/15/22 07:37 Oxygen Flow Rate 4 07/10/22 00:00 BMI result Body Mass Index 43.1 General: AO X 3, no acute distress Resp: rales at bases CVS: S1,S2,RRR, 3 +pedal edema GI: +BS, NT, no distention Skin:? bilateral stasis dermatitis,leg swellin Neuro:? motor grossly intact Psych: appropriate affect Objective Data Active Medications Acetaminophen (Acetaminophen 325 Mg Tablet) 650 mg PO Q6H PRN PRN Reason: Pain, Mild (Pain Scale 1-3) Last Admin: 07/15/22 02:32 Dose: 650 mg Documented By: EDILIA Albuterol Sulfate (Albuterol Sulfate 90 Mcg 8 Gm Inhaler) 2 puff INHALE Q6H PRN PRN Reason: shortness of breath or wheezing Albuterol/Ipratropium (Albuterol/Iprat 2.5/0.5mg 3 Ml Ampul.Neb) 3 ml INHALE RQ4H WHILE AWAKE [facility] Last Admin: 07/15/22 08:12 Dose: 3 ml Documented By: ONEIL Allopurinol (Allopurinol 100 Mg Tablet) 100 mg PO DAILY [facility] Last Admin: 07/15/22 08:00 Dose: 100 mg Documented By: GRAEME Dextrose (Dextrose 50 % 25 Gm/50 Ml Syringe) 25 gm IVPUSH Q15M PRN; Protocol PRN Reason: per Hypoglycemia Standing Ord. Docusate Sodium (Docusate Sodium 100 Mg Capsule) 100 mg PO DAILY PRN PRN Reason: Constipation Docusate Sodium (Docusate Sodium 100 Mg Capsule) 100 mg PO DAILY [facility] Last Admin: 07/15/22 08:00 Dose: 100 mg Documented By: GRAEME Empagliflozin (Empagliflozin 10 Mg Tablet) 10 mg PO DAILY [facility] Last Admin: 07/15/22 08:00 Dose: 10 mg Documented By: GRAEME Ferrous Sulfate (Ferrous Sulfate 324 Mg Tablet.Dr) 324 mg PO DAILY [facility] Last Admin: 07/15/22 08:00 Dose: 324 mg Documented By: GRAEME Fluticasone/Vilanterol (Fluticasone/Vilanterol 200/25 Blst.W.Dev) 1 puff INHALE RDAILY [facility] Last Admin: 07/15/22 08:13 Dose: Not Given Documented By: ONEIL Non-Admin Reason: Patient Refused Gabapentin (Gabapentin 300 Mg Capsule) 300 mg PO TID [facility] Last Admin: 07/15/22 08:00 Dose: 300 mg Documented By: GRAEME Glucose (Glucose Gel 15 Gm Gel..Gram.) 15 gm PO Q15M PRN; Protocol PRN Reason: per Hypoglycemia Standing Ord. Guaifenesin (Guaifenesin [place] 600 Mg Tab.Er.12h) 600 mg PO BID [facility] Last Admin: 07/15/22 10:20 Dose: 600 mg Documented By: GRAEME Furosemide 200 mg/ Sodium (Chloride) 100 mls @ 5 mls/hr IVCONT .Q20H [facility] Last Infusion: 07/14/22 11:34 Dose: 0 mg/hr, 0 mls/hr Documented By: ANTHONY Insulin Glargine (Insulin Glargine,Hum.Rec.Anlog 100 Unit/Ml 10 Ml Vial) 40 unit SUBCUT DAILY [facility] Last Admin: 07/15/22 08:00 Dose: 40 unit Documented By: GRAEME Insulin Human Lispro (Insulin Lispro 100 Unit/Ml 3 Ml Vial) 0 unit SUBCUT QIDACHS [facility]; Protocol Last Admin: 07/15/22 08:01 Dose: 4 unit Documented By: GRAEME Insulin Human Lispro (Insulin Lispro 100 Unit/Ml 3 Ml Vial) 5 unit SUBCUT QIDACHS [facility] Last Admin: 07/15/22 08:01 Dose: 5 unit Documented By: GRAEME Lidocaine (Lidocaine 4 % Patch Adh..Patch) 1 patch TRANSDERMA DAILY [facility]; Protocol Last Admin: 07/15/22 10:20 Dose: 1 patch Documented By: GRAEME Loratadine (Loratadine 10 Mg Tablet) 10 mg PO DAILY [facility] Last Admin: 07/15/22 08:00 Dose: 10 mg Documented By: GRAEME Metoprolol Tartrate (Metoprolol Tartrate 12.5 Mg Halftab) 12.5 mg PO Q6H [facility]; Protocol Last Admin: 07/15/22 09:05 Dose: Not Given Documented By: GRAEME Non-Admin Reason: Decreased Blood Pressure Multivitamins/Vitamin C (Multivitamin Tablet) 1 tab PO DAILY [facility] Last Admin: 07/15/22 08:00 Dose: 1 tab Documented By: GRAEME Ondansetron HCl (Ondansetron Hcl 4 Mg/2 Ml Vial) 4 mg IVPUSH Q8H PRN PRN Reason: Nausea and Vomiting Pharmacy Consult (Consult Rx Perform Med Rec) 1 each MISCELLANE ONCE PRN PRN Reason: Consult order Potassium Chloride (Potassium Chloride Er 20 Meq Tab.Er.Prt) 40 meq PO BID [facility] Last Admin: 07/15/22 09:06 Dose: Not Given Documented By: GRAEME Non-Admin Reason: K+ WNL Potassium Chloride (Potassium Chloride Packet 20 Meq Packet) 40 meq PO BID [facility] Last Admin: 07/15/22 09:06 Dose: Not Given Documented By: GRAEME Non-Admin Reason: K+ WNL Pravastatin Sodium (Pravastatin Sodium 20 Mg Tablet) 20 mg PO BEDTIME [facility] Last Admin: 07/14/22 20:31 Dose: 20 mg Documented By: EDILIA Psyllium Hydrophilic Mucilloid (Psyllium Seed 3.4 Gm Powd.Pack) 3.4 gm PO DAILY [facility] Last Admin: 07/15/22 07:59 Dose: 3.4 gm Documented By: GRAEME Rivaroxaban (Rivaroxaban 15 Mg Tablet) 15 mg PO DAILY@1700 [facility] Last Admin: 07/14/22 15:54 Dose: 15 mg Documented By: ANTHONY Sodium Chloride (0.9 % Sodium Chloride Flush 3 Ml Syringe) 3 ml IVFLUSH QSHIFT [facility] Last Admin: 07/15/22 08:08 Dose: 3 ml Documented By: GRAEME Spironolactone (Spironolactone 25 Mg Tablet) 50 mg PO DAILY [facility]; Protocol Last Admin: 07/15/22 09:06 Dose: Not Given Documented By: GRAEME Non-Admin Reason: Decreased Blood Pressure Tiotropium [place] (Tiotropium [place] 18 Mcg Cap.W.Dev) 1 puff INHALE RDAILY [facility] Last Admin: 07/15/22 08:20 Dose: 1 puff Documented By: ONEIL Vitamin D (Cholecalciferol (Vitamin D3) 25 Mcg Tablet) 25 mcg PO DAILY [facility] Last Admin: 07/15/22 08:00 Dose: 25 mcg Documented By: GRAEME Zinc Sulfate (Zinc Sulfate 220 Mg Capsule) 220 mg PO DAILY [facility] Last Admin: 07/15/22 07:59 Dose: 220 mg Documented By: GRAEME Labs CBC & Chem 7: 07/04/22 10:23 07/15/22 05:34 Labs: Laboratory Results - last 24 hr 07/14/22 07/14/22 07/14/22 11:18 15:45 19:23 Anion Gap Estim Creat Clear Calc Estimated GFR POC Glucose 401 H* 429 H* 323 H Random Glucose Calcium 07/15/22 07/15/22 05:34 07:42 Anion Gap 15 Estim Creat Clear Calc 46.8 Estimated GFR 38 POC Glucose 214 H Random Glucose 166 H Calcium 9.0 Assessment and Plan (1) Hypokalemia: Status: Acute (2) Acute on chronic diastolic (congestive) heart failure: Status: Acute (3) Edema: Status: Acute Plan 72-year-old female with past medical history significant for diastolic heart failure, pulmonary hypertension, tricuspid valve regurgitation, AFib, COPD, HLD, and DM2 who presents to the ED with worsening edema over the past 2 weeks.?She was admitted for acute exacerbation of heart failure and treated with aggressive diuresising. # acute? on chronic diastolic CHF exacerbation with excess of 40 Ib weight gain - negative 28liter? fluid balance,weight lost around ? 12kg(from chart review) hold IV lasix drip- has alkalosis/mild prerenal,boderline blood pressure. -replace K as needed, doesn't want IV K -give trial off lasix -since 28liter neg ,Continue Aldactone, Jardiance, metoprolol -follow I/O, weight, limit salt d/w cardio-hold diuresis # DM2--continue Jardiance, SSI, Lantus # HTN--BP on low side, monitor closely #Permanent AFIB--metoprolol for rate, Xarelto for stroke prevention # CKD3-- Cr 1.2 (baseline) #HypOkaelmia-- d/t? diuretics, replace with oral, she doesn't want IV K, mag is normal. morbid obesity-encouraged to lose weight. nasal congestion-cotninue loratidine,does not want fluticasone nasal spray and azlastine. added mucinex. Full code DVT prophylaxis:Xarelto inpatient need: chf ,boderline blood pressure trail off iv diuretics ,waitin cardimems and cardiology followup . Time Spent With Patient Time: Total time managing care of this patient today ____ minutes. Quality Stroke Does the patient have a stroke diagnosis?: No VTE Prior VTE?: No VTE Risk Level:: Medical - moderate - high VTE Device Contraindication: Treatment Not Indicated VTE Drug Contraindication: N/A - Med Ordered
[2022-07-15 11:29] LABS: Glucose, Whole Blood 284 mg/dL (60-115)
[2022-07-15] MEDS: Midodrine HCl 5 MG TABLET PO (12:12)
[2022-07-15] MEDS: Albumin Human 25 % 100 ML IV (12:13)
--- NOTE | 2022-07-15 14:42 | PM.PNCARD ---
Subjective Subjective Date of Service: 07/15/22 Principal diagnosis: Heart failure Interval history: Seen and examined at bedside. Still volume overloaded. She had low blood pressures today and has been of her p.o. medications. Her diuretics were held yesterday because her creatinine was rising. She is 1 L negative and readmit actually improved despite negative fluid balance. Physical Exam Vital Signs: Last Vital Signs Temp 97.8 F 07/15/22 07:37 Pulse 99 07/15/22 14:18 Resp 18 07/15/22 11:42 BP 112/61 07/15/22 14:18 Pulse Ox 92 07/15/22 07:37 O2 Del Method 07/15/22 07:37 O2 Flow Rate 3 07/15/22 07:37 Oxygen Flow Rate 4 07/10/22 00:00 BMI result Body Mass Index 43.1 GENERAL APPEARANCE: Short of breath. NECK: no carotid bruit, positive jugular venous distention. SKIN: no suspicious lesions, warm and dry. HEART: no murmurs, irregular rate and rhythm. LUNGS: clear to auscultation bilaterally. ABDOMEN: soft, nontender. EXTREMITIES: 1 to 2+ edema. PERIPHERAL PULSES: equal. NEUROLOGIC: No gross deficits, AAO X 3 Objective Labs and Meds Result diagrams: 07/04/22 10:23 07/15/22 05:34 Lab results: Laboratory Results - last 24 hr 07/14/22 07/14/22 07/15/22 15:45 19:23 05:34 Sodium 136 Potassium 4.8 D Chloride 89 L Carbon Dioxide 37 H Anion Gap 15 BUN 48 H Creatinine 1.37 Estim Creat Clear Calc 46.8 Estimated GFR 38 POC Glucose 429 H* 323 H Random Glucose 166 H Calcium 9.0 07/15/22 07/15/22 07:42 11:24 Sodium Potassium Chloride Carbon Dioxide Anion Gap BUN Creatinine Estim Creat Clear Calc Estimated GFR POC Glucose 214 H 284 H Random Glucose Calcium Progress Note: A&P Assessment and plan (1) Acute on chronic diastolic (congestive) heart failure: Status: Acute Plan 72-year-old female with acute on chronic diastolic heart failure. She has chronic atrial fibrillation and has been on Xarelto and metoprolol 12.5 mg b.i.d. as outpatient. Admitted with significant volume overload and has been-30 L. by exam she still appears volume overloaded but her blood pressure has been soft today and she is currently of her medications as well as diuretics. She had a CardioMEMS placed previously. We will interrogate that tomorrow and decide about further diuretics. Would hold off on diuretics for now. Monitor electrolytes closely. Thank you for allowing me to participate in the care of your patient. Please feel free to contact me if you have any questions. Time Spent With Patient Time: Total time managing care of this patient today ____ minutes. Progress Note: Quality Stroke Does the patient have a stroke diagnosis?: No Procedures Date of Service Date of Service: 07/15/22
[2022-07-15 16:00] LABS: Glucose, Whole Blood 221 mg/dL (60-115)
[2022-07-15] MEDS: Rivaroxaban 15 MG TABLET PO (16:16)
[2022-07-15 19:52] LABS: Glucose, Whole Blood 260 mg/dL (60-115)
[2022-07-15] MEDS: Pravastatin Sodium 20 MG TABLET PO (21:40)
[2022-07-15] MEDS: Potassium Chloride ER 20 MEQ TAB.ER.PRT 40 MEQ PO (21:40)
[2022-07-16] VITALS (11 sets, daily range): BP systolic 86–129; BP diastolic 51–69; PULSE 69–109; RESP 18–20; TEMP 36.4–36.7; O2SAT 90–95; BMI 43.8
[2022-07-16] MEDS: Metoprolol Tartrate 12.5 MG HALFTAB PO (04:00)
--- NOTE | 2022-07-16 07:30 | PC.NURSE ---
Assumed care of patient at this time.
[2022-07-16 07:41] LABS: Glucose, Whole Blood 184 mg/dL (60-115)
[2022-07-16] MEDS: Albuterol/Iprat 2.5/0.5MG 3 ML AMPUL.NEB INHALE ×4 (08:38→20:50)
[2022-07-16] MEDS: Empagliflozin 10 MG TABLET PO (08:42)
[2022-07-16] MEDS: Zinc Sulfate 220 MG CAPSULE PO (08:42)
[2022-07-16] MEDS: guaiFENesin LA 600 MG TAB.ER.12H PO ×2 (08:43→20:41)
[2022-07-16] MEDS: Ferrous Sulfate 324 MG TABLET.DR PO (08:43)
[2022-07-16] MEDS: Lidocaine 4 % Patch ADH..PATCH 1 PATCH TRANSDERMA (08:43)
[2022-07-16] MEDS: Docusate Sodium 100 MG CAPSULE PO (08:43)
[2022-07-16] MEDS: Loratadine 10 MG TABLET PO (08:43)
[2022-07-16] MEDS: allopurinoL 100 MG TABLET PO (08:43)
[2022-07-16] MEDS: Cholecalciferol (Vitamin D3) 25 MCG TABLET PO (08:43)
[2022-07-16] MEDS: Multivitamin TABLET 1 TAB PO (08:43)
[2022-07-16] MEDS: Gabapentin 300 MG CAPSULE PO ×3 (08:43→20:41)
[2022-07-16] MEDS: Insulin Lispro 100 UNIT/ML 3 ML VIAL SUBCUT ×8 (08:44→20:43)
[2022-07-16] MEDS: Insulin Glargine,Hum.rec.anlog 100 UNIT/ML 10 ML VIAL 40 UNIT SUBCUT (08:44)
[2022-07-16] MEDS: 0.9 % Sodium Chloride Flush 3 ML SYRINGE IVFLUSH ×4 (08:45→19:32)
[2022-07-16 10:46] LABS: B Type Natriuretic Peptide 471 pg/mL (<100)
[2022-07-16 11:34] LABS: Alanine Aminotransferase 19 U/L (0-31); Albumin Level 3.4 g/dL (3.5-5.0); Alkaline Phosphatase 115 U/L (39-117); Anion Gap 14 (12-20); Aspartate Amino Transferase 34 U/L (5-31); Blood Urea Nitrogen 45 mg/dL (9-16); Calcium 8.9 mg/dL (8.4-10.2); Carbon Dioxide 34 mmol/L (22-29); Chloride 88 mmol/L (96-108); Creatinine Clr Calc Pharmacy 47.3; Estimated Glomerular Filt Rate 38; Glucose Random 224 mg/dL (60-115); Potassium 4.9 mmol/L (3.3-5.1); Sodium 131 mmol/L (135-145); Total Protein 7.1 g/dL (6.5-8.0)
[2022-07-16 11:36] LABS: Basophils Absolute Auto 0.1 X10*3/uL (0.0-0.2); Basophils Percent Auto 0.6 % (0-2); Eosinophils Absolute Auto 0.2 X10*3/uL (0.0-0.4); Eosinophils Percent Auto 1.9 % (0-4); Hematocrit 35.8 % (37.0-47.0); Hemoglobin 11.5 g/dl (12.0-16.0); Imm Gran Abs Auto 0.06 X10*3/uL (0.00-0.03); Imm Gran Pct Auto 0.6 % (0.0-0.4); Lymphocytes Absolute Auto 0.8 X10*3/uL (1.2-4.9); Lymphocytes Percent Auto 8.8 % (20-40); Mean Corpuscular HGB Conc 32.1 g/dl (31.0-35.0); Mean Corpuscular Hemoglobin 30.3 pg (27.0-33.0); Mean Corpuscular Volume 94.2 fL (80.0-98.0); Mean Platelet Volume 8.8 fL (9.4-12.3); Monocytes Absolute Auto 0.9 X10*3/uL (0.1-1.2); Neutrophils Absolute Auto 7.5 x10*3/uL (2.0-8.3); Neutrophils Percent Auto 79.1 % (45-73); Platelet Count 224 X10*3/uL (160-400); Red Cell Distribution Width 16.3 % (11.0-16.0); White Blood Count 9.5 X10*3/uL (4.8-10.8)
[2022-07-16 11:43] LABS: MANUAL DIFF FLAG NO
[2022-07-16 11:59] LABS: Glucose, Whole Blood 304 mg/dL (60-115)
--- NOTE | 2022-07-16 12:44 | PM.PNCARD ---
Subjective Subjective Date of Service: 07/16/22 Principal diagnosis: Heart failure Interval history: Seen at 1100. Breathing not to baseline. Still on 4 liters nasal cannula. No significant changes to condition. Lasix remains on hold. Perez in place. Cardiomems reading to be done today. Labs reviewed. Review of Systems Review of Systems as above Physical Exam Vital Signs: Last Vital Signs Temp 97.9 F 07/16/22 07:57 Pulse 84 07/16/22 08:40 Resp 19 07/16/22 08:40 BP 86/60 L 07/16/22 08:33 Pulse Ox 93 07/16/22 07:57 O2 Del Method 07/16/22 07:57 O2 Flow Rate 4.0 07/16/22 07:57 Oxygen Flow Rate 4 07/10/22 00:00 BMI result Body Mass Index 43.8 Const General: cooperative, comfortable and no acute distress Orientation/consciousness: patient oriented x3 Neck Neck: Yes normal visual inspection and Yes no JVD Resp Other: short of breath with movement/ activity. still requiring O2 supplement 4 liters Auscultation: crackles (lower lobes), no rales, no rhonchi and no wheezes Cardio Rate: regular rate Rhythm: abnormal rhythm Heart sounds: S1 normal heart sound present, S2 normal heart sound present, no gallops, no murmurs and no rubs GI Other: obese Neuro General: patient oriented x3 Extrem Other: obese, nonpitting edema of legs Psych Appearance: grossly normal Mental Status: mental status grossly normal Speech and movement: Normal speech and movement present Objective Labs and Meds Result diagrams: 07/16/22 11:23 07/16/22 09:41 Lab results: Laboratory Results - last 24 hr 07/15/22 07/15/22 07/16/22 15:52 19:41 07:37 WBC RBC Hgb Hct MCV MCH MCHC RDW Plt Count MPV Immature Gran % (Auto) Neut % (Auto) Lymph % (Auto) [place] % (Auto) Eos % (Auto) Baso % (Auto) Lymph # (Auto) [place] # (Auto) Eos # (Auto) Baso # (Auto) Abs Immat Gran (auto) Absolute Neuts (auto) Absolute Nucleated RBC Nucleated RBC % (auto) Sodium Potassium Chloride Carbon Dioxide Anion Gap BUN Creatinine Estim Creat Clear Calc Estimated GFR POC Glucose 221 H 260 H 184 H Random Glucose Calcium AST ALT Alkaline Phosphatase B-Natriuretic Peptide Total Protein Albumin 07/16/22 07/16/22 07/16/22 09:41 09:41 09:41 WBC RBC Hgb Hct MCV MCH MCHC RDW Plt Count MPV Immature Gran % (Auto) Neut % (Auto) Lymph % (Auto) [place] % (Auto) Eos % (Auto) Baso % (Auto) Lymph # (Auto) [place] # (Auto) Eos # (Auto) Baso # (Auto) Abs Immat Gran (auto) Absolute Neuts (auto) Absolute Nucleated RBC Nucleated RBC % (auto) Sodium Cancelled 131 L Potassium Cancelled 4.9 Chloride Cancelled 88 L Carbon Dioxide Cancelled 34 H Anion Gap Cancelled 14 BUN Cancelled 45 H Creatinine Cancelled 1.37 Estim Creat Clear Calc Cancelled 47.3 Estimated GFR Cancelled 38 POC Glucose Random Glucose Cancelled 224 H Calcium Cancelled 8.9 AST 34 H D ALT 19 Alkaline Phosphatase 115 D B-Natriuretic Peptide 471 H Total Protein 7.1 Albumin 3.4 L 07/16/22 07/16/22 11:23 11:39 WBC 9.5 RBC 3.80 L Hgb 11.5 L Hct 35.8 L MCV 94.2 MCH 30.3 MCHC 32.1 RDW 16.3 H Plt Count 224 MPV 8.8 L Immature Gran % (Auto) 0.6 H Neut % (Auto) 79.1 H Lymph % (Auto) 8.8 L [place] % (Auto) 9.0 Eos % (Auto) 1.9 Baso % (Auto) 0.6 Lymph # (Auto) 0.8 L [place] # (Auto) 0.9 Eos # (Auto) 0.2 Baso # (Auto) 0.1 Abs Immat Gran (auto) 0.06 H Absolute Neuts (auto) 7.5 Absolute Nucleated RBC 0.000 Nucleated RBC % (auto) 0.0 Sodium Potassium Chloride Carbon Dioxide Anion Gap BUN Creatinine Estim Creat Clear Calc Estimated GFR POC Glucose 304 H Random Glucose Calcium AST ALT Alkaline Phosphatase B-Natriuretic Peptide Total Protein Albumin Progress Note: A&P Assessment and plan (1) Acute on chronic diastolic (congestive) heart failure: Status: Acute Assessment and Plan: History of diastolic and right-sided heart failure. Last echo with EF 65-70%, mod increase in RV size and decreased in RVSF, LA mod dilated. Being treated for decompensated HF. Fluid balance negative 28 L since admission. Weight down approximately 30 lb based on fluid balance and actual weight measurements. Dry weight 260lbs based on clinical status. Lasix drip on hold last 2 days. labs shows Cr 1.37, BNP 471. Cardiomems reading done 07/11 showed elevation of PA readings: 39/ 31/25 and Reading done today shows PA readings: 36//19, improved. Continues to require increased O2 supplement from her baseline. She is on 4 L with sats 93% which could be from atelectasis. She has Incentive spirometer at bedside and has been encouraged to use it. BP running on low side and antihypertensive on hold. Discussed with Dr Lau. Will stop Metoprolol ( currently being held). Will continue to hold diuretics today. Starting tomorrow, will resume usual Torsemide 60mg bid. Restart Aldactone at 25mg daily, if BP allows. Continue Jardiance. Plan to resume Metolazone 2.5 mg - Was taking 2 times weekly and will likely need to be on it 3 times weekly going forward. Continue KCL supplement. She can have ice chips in a quantity that falls within her fluid restriction. Strict I+O monitoring. Continue Daily weights. Increase physical activity: ambulate at least 2-3 times daily. Wean O2 as able down to her usual home 2 liters, as able, keeping Sat > 90%. We will follow. (2) Acute on chronic right-sided heart failure: Status: Acute (3) Shortness of breath: Status: Acute (4) Hypokalemia: Status: Acute Assessment and Plan: On supplement with goal potassium 4. On 80meq BID currently. (5) Chronic atrial fibrillation: Status: Acute Assessment and Plan: Hx afib, chronic, asymptomatic. Has been on Metoprolol. Discuss with Dr Lau. Will her HF syndrome, will stop Metoprolol. May benefit from rhythm control more than rate control. On Xarelto, renal dose for anticoagulation. No bleeding issues noted. (6) COPD (chronic obstructive pulmonary disease): Status: Acute Assessment and Plan: Followed by hospitalist. On O2 supplement. Wearing CPAP at night. (7) Supplemental oxygen dependent: Status: Acute (8) MELANIE (obstructive sleep apnea): Status: Acute Time Spent With Patient Time: Total time managing care of this patient today __24__ minutes. Progress Note: Quality Stroke Does the patient have a stroke diagnosis?: No Procedures Date of Service Date of Service: 07/16/22
[2022-07-16 12:49] LABS: Bilirubin Total 22.2 mg/dL (0.0-1.0)
[2022-07-16 14:31] LABS: Albumin Level 3.1 g/dL (3.5-5.0); Total Protein 6.3 g/dL (6.5-8.0)
--- NOTE | 2022-07-16 14:39 | HO.PM.IMPN ---
Subjective Subjective Date of Service: 07/16/22 Interval History: complaining of right arm redness otherwise denies shortness of breath, no chest pain, wants to know her treatment plan, waiting for CardioMEMS interrogation, noted to have soft blood pressure 86/60 this morning patient denies chest pain, no lightheadedness, no dizziness, no nausea no vomiting no abdominal pain or diarrhea. Review of Systems Review of Systems: Yes all other systems are reviewed and are negative Physical Exam Vital Signs: Vital Signs: Last Vital Signs Temp 97.9 F 07/16/22 07:57 Pulse 84 07/16/22 08:40 Resp 19 07/16/22 08:40 BP 86/60 L 07/16/22 08:33 Pulse Ox 93 07/16/22 07:57 O2 Del Method 07/16/22 07:57 O2 Flow Rate 4.0 07/16/22 07:57 Oxygen Flow Rate 4 07/10/22 00:00 BMI result Body Mass Index 43.8 Const: Other: General sitting comfortably, in no acute distress. Neck , supple no JVD. CVS regular rate rhythm, Respiratory lungs clear to auscultation, no respiratory distress, no wheeze, no rhonchi, bibasilar crackles. Gastrointestinal abdomen soft, nontender, bowel sounds audible, no guarding , no rigidity. Extremities mild edema. Neuro nonfocal , speech clear. psych appropriate affect Objective Data Active Medications Acetaminophen (Acetaminophen 325 Mg Tablet) 650 mg PO Q6H PRN PRN Reason: Pain, Mild (Pain Scale 1-3) Last Admin: 07/15/22 02:32 Dose: 650 mg Documented By: EDILIA Albuterol Sulfate (Albuterol Sulfate 90 Mcg 8 Gm Inhaler) 2 puff INHALE Q6H PRN PRN Reason: shortness of breath or wheezing Albuterol/Ipratropium (Albuterol/Iprat 2.5/0.5mg 3 Ml Ampul.Neb) 3 ml INHALE RQ4H WHILE AWAKE REPLACED BY [facility] Last Admin: 07/16/22 11:36 Dose: 3 ml Documented By: JAE Allopurinol (Allopurinol 100 Mg Tablet) 100 mg PO DAILY REPLACED BY [facility] Last Admin: 07/16/22 08:43 Dose: 100 mg Documented By: GABRIEL Dextrose (Dextrose 50 % 25 Gm/50 Ml Syringe) 25 gm IVPUSH Q15M PRN; Protocol PRN Reason: per Hypoglycemia Standing Ord. Docusate Sodium (Docusate Sodium 100 Mg Capsule) 100 mg PO DAILY PRN PRN Reason: Constipation Docusate Sodium (Docusate Sodium 100 Mg Capsule) 100 mg PO DAILY REPLACED BY [facility] Last Admin: 07/16/22 08:43 Dose: 100 mg Documented By: GABRIEL Empagliflozin (Empagliflozin 10 Mg Tablet) 10 mg PO DAILY REPLACED BY [facility] Last Admin: 07/16/22 08:42 Dose: 10 mg Documented By: GABRIEL Ferrous Sulfate (Ferrous Sulfate 324 Mg Tablet.Dr) 324 mg PO DAILY REPLACED BY [facility] Last Admin: 07/16/22 08:43 Dose: 324 mg Documented By: GABRIEL Fluticasone/Vilanterol (Fluticasone/Vilanterol 200/25 Blst.W.Dev) 1 puff INHALE RDAILY REPLACED BY [facility] Last Admin: 07/15/22 08:13 Dose: Not Given Documented By: ONEIL Non-Admin Reason: Patient Refused Gabapentin (Gabapentin 300 Mg Capsule) 300 mg PO TID REPLACED BY [facility] Last Admin: 07/16/22 08:43 Dose: 300 mg Documented By: GABRIEL Glucose (Glucose Gel 15 Gm Gel..Gram.) 15 gm PO Q15M PRN; Protocol PRN Reason: per Hypoglycemia Standing Ord. Guaifenesin (Guaifenesin La 600 Mg Tab.Er.12h) 600 mg PO BID REPLACED BY [facility] Last Admin: 07/16/22 08:43 Dose: 600 mg Documented By: GABRIEL Furosemide 200 mg/ Sodium (Chloride) 100 mls @ 5 mls/hr IVCONT .Q20H REPLACED BY [facility] Last Infusion: 07/14/22 11:34 Dose: 0 mg/hr, 0 mls/hr Documented By: ANTHONY Insulin Glargine (Insulin Glargine,Hum.Rec.Anlog 100 Unit/Ml 10 Ml Vial) 40 unit SUBCUT DAILY REPLACED BY [facility] Last Admin: 07/16/22 08:44 Dose: 40 unit Documented By: GABRIEL Insulin Human Lispro (Insulin Lispro 100 Unit/Ml 3 Ml Vial) 0 unit SUBCUT QIDACHS REPLACED BY [facility]; Protocol Last Admin: 07/16/22 12:07 Dose: 12 unit Documented By: GABRIEL Insulin Human Lispro (Insulin Lispro 100 Unit/Ml 3 Ml Vial) 5 unit SUBCUT QIDACHS REPLACED BY [facility] Last Admin: 07/16/22 12:07 Dose: 5 unit Documented By: GABRIEL Lidocaine (Lidocaine 4 % Patch Adh..Patch) 1 patch TRANSDERMA DAILY REPLACED BY [facility]; Protocol Last Admin: 07/16/22 08:43 Dose: 1 patch Documented By: GABRIEL Loratadine (Loratadine 10 Mg Tablet) 10 mg PO DAILY REPLACED BY [facility] Last Admin: 07/16/22 08:43 Dose: 10 mg Documented By: GABRIEL Metoprolol Tartrate (Metoprolol Tartrate 12.5 Mg Halftab) 12.5 mg PO Q6H REPLACED BY [facility]; Protocol Last Admin: 07/16/22 10:09 Dose: Not Given Documented By: GABRIEL Non-Admin Reason: Decreased Blood Pressure Multivitamins/Vitamin C (Multivitamin Tablet) 1 tab PO DAILY REPLACED BY [facility] Last Admin: 07/16/22 08:43 Dose: 1 tab Documented By: GABRIEL Ondansetron HCl (Ondansetron Hcl 4 Mg/2 Ml Vial) 4 mg IVPUSH Q8H PRN PRN Reason: Nausea and Vomiting Pharmacy Consult (Consult Rx Perform Med Rec) 1 each MISCELLANE ONCE PRN PRN Reason: Consult order Potassium Chloride (Potassium Chloride Er 20 Meq Tab.Er.Prt) 40 meq PO BID REPLACED BY [facility] Last Admin: 07/16/22 10:10 Dose: Not Given Documented By: GABRIEL Non-Admin Reason: Physician Held Med Potassium Chloride (Potassium Chloride Packet 20 Meq Packet) 40 meq PO BID REPLACED BY [facility] Last Admin: 07/16/22 10:10 Dose: Not Given Documented By: GABRIEL Non-Admin Reason: Physician Held Med Pravastatin Sodium (Pravastatin Sodium 20 Mg Tablet) 20 mg PO BEDTIME REPLACED BY [facility] Last Admin: 07/15/22 21:40 Dose: 20 mg Documented By: TERESE Psyllium Hydrophilic Mucilloid (Psyllium Seed 3.4 Gm Powd.Pack) 3.4 gm PO DAILY REPLACED BY [facility] Last Admin: 07/16/22 08:41 Dose: 3.4 gm Documented By: GABRIEL Rivaroxaban (Rivaroxaban 15 Mg Tablet) 15 mg PO DAILY@1700 REPLACED BY [facility] Last Admin: 07/15/22 16:16 Dose: 15 mg Documented By: GRAEME Sodium Chloride (0.9 % Sodium Chloride Flush 3 Ml Syringe) 3 ml IVFLUSH QSHIFT REPLACED BY [facility] Last Admin: 07/16/22 08:45 Dose: 3 ml Documented By: GABRIEL Spironolactone (Spironolactone 25 Mg Tablet) 50 mg PO DAILY REPLACED BY [facility]; Protocol Last Admin: 07/16/22 10:10 Dose: Not Given Documented By: GABRIEL Non-Admin Reason: Decreased Blood Pressure Tiotropium [place] (Tiotropium [place] 18 Mcg Cap.W.Dev) 1 puff INHALE RDAILY REPLACED BY [facility] Last Admin: 07/16/22 08:38 Dose: 1 puff Documented By: ONEIL Vitamin D (Cholecalciferol (Vitamin D3) 25 Mcg Tablet) 25 mcg PO DAILY REPLACED BY [facility] Last Admin: 07/16/22 08:43 Dose: 25 mcg Documented By: GABRIEL Zinc Sulfate (Zinc Sulfate 220 Mg Capsule) 220 mg PO DAILY REPLACED BY [facility] Last Admin: 07/16/22 08:42 Dose: 220 mg Documented By: GABRIEL Labs CBC & Chem 7: 07/16/22 11:23 07/16/22 09:41 Labs: Laboratory Results - last 24 hr 07/15/22 07/15/22 07/16/22 15:52 19:41 07:37 MCV MCH MCHC RDW Plt Count MPV Immature Gran % (Auto) Neut % (Auto) Lymph % (Auto) [place] % (Auto) Eos % (Auto) Baso % (Auto) Lymph # (Auto) [place] # (Auto) Eos # (Auto) Baso # (Auto) Abs Immat Gran (auto) Absolute Neuts (auto) Absolute Nucleated RBC Nucleated RBC % (auto) Anion Gap Estim Creat Clear Calc Estimated GFR POC Glucose 221 H 260 H 184 H Random Glucose Calcium Total Bilirubin AST ALT Alkaline Phosphatase B-Natriuretic Peptide Total Protein Albumin 07/16/22 07/16/22 07/16/22 09:41 09:41 09:41 MCV MCH MCHC RDW Plt Count MPV Immature Gran % (Auto) Neut % (Auto) Lymph % (Auto) [place] % (Auto) Eos % (Auto) Baso % (Auto) Lymph # (Auto) [place] # (Auto) Eos # (Auto) Baso # (Auto) Abs Immat Gran (auto) Absolute Neuts (auto) Absolute Nucleated RBC Nucleated RBC % (auto) Anion Gap Cancelled 14 Estim Creat Clear Calc Cancelled 47.3 Estimated GFR Cancelled 38 POC Glucose Random Glucose Cancelled 224 H Calcium Cancelled 8.9 Total Bilirubin 22.2 H AST 34 H D ALT 19 Alkaline Phosphatase 115 D B-Natriuretic Peptide 471 H Total Protein 7.1 Albumin 3.4 L 07/16/22 07/16/22 07/16/22 11:23 11:39 13:51 MCV 94.2 MCH 30.3 MCHC 32.1 RDW 16.3 H Plt Count 224 MPV 8.8 L Immature Gran % (Auto) 0.6 H Neut % (Auto) 79.1 H Lymph % (Auto) 8.[address] [place] % (Auto) 9.0 Eos % (Auto) 1.9 Baso % (Auto) 0.6 Lymph # (Auto) 0.[address] [place] # (Auto) 0.9 Eos # (Auto) 0.2 Baso # (Auto) 0.1 Abs Immat Gran (auto) 0.06 H Absolute Neuts (auto) 7.5 Absolute Nucleated RBC 0.000 Nucleated RBC % (auto) 0.0 Anion Gap Estim Creat Clear Calc Estimated GFR POC Glucose 304 H Random Glucose Calcium Total Bilirubin AST ALT Alkaline Phosphatase B-Natriuretic Peptide Total Protein 6.3 L Albumin 3.1 L Assessment and Plan (1) Hypokalemia: Status: Acute (2) Acute on chronic diastolic (congestive) heart failure: Status: Acute (3) Edema: Status: Acute Plan 72-year-old female with past medical history significant for diastolic heart failure, pulmonary hypertension, tricuspid valve regurgitation, AFib, COPD, HLD, and DM2 who presents to the ED with worsening edema over the past 2 weeks.?She was admitted for acute exacerbation of heart failure and treated with aggressive diuresising. # acute? on chronic diastolic CHF exacerbation with excess of 40 Ib weight gain clinically appears stable with no significant volume load, is negative 28liter? fluid balance, diuretics Lasix and Aldactone on hold, due to soft blood pressure and alkalosis case discussed with Dr. Sid he recommend to hold metoprolol CardioMEMS device interrogated will follow with Cardiology # DM2-- elevated blood sugars, strongly recommend to follow diabetic diet,continue Jardiance, SSI, Lantus # HTN-- low blood pressure DC metoprolol, hold diuretics follow blood pressure closely #Permanent AFIB-- DC metoprolol, continue Xarelto for stroke prevention # CKD3-- Cr 1.3 stable #Hypokaelmia-- d/t? diuretics, repleted and normalized, stop potassium chloride since not being diuresed. # elevated total bili of 22.2 patient with no nausea no vomiting no abdominal pain will repeat labs, most recent total bili 1.1 on 07/04 morbid obesity-encouraged to lose weight. nasal congestion-cotninue loratidine,does not want fluticasone nasal spray and azlastine, continue Mucinex. Full code DVT prophylaxis:Xarelto inpatient need: low blood pressure requiring close cardiac monitoring since difficult to assess fluid status. Time Spent With Patient Time: Total time managing care of this patient today ____ minutes. Quality Stroke Does the patient have a stroke diagnosis?: No VTE Prior VTE?: No VTE Risk Level:: Medical - moderate - high VTE Device Contraindication: Treatment Not Indicated VTE Drug Contraindication: N/A - Med Ordered
[2022-07-16 14:54] LABS: Alanine Aminotransferase 17 U/L (0-31); Alkaline Phosphatase 118 U/L (39-117); Aspartate Amino Transferase 29 U/L (5-31); Bilirubin Direct 0.5 mg/dL (0.0-0.5)
[2022-07-16 15:54] LABS: Glucose, Whole Blood 298 mg/dL (60-115)
[2022-07-16] MEDS: Rivaroxaban 15 MG TABLET PO (17:16)
[2022-07-16 20:37] LABS: Glucose, Whole Blood 191 mg/dL (60-115)
[2022-07-16] MEDS: Acetaminophen 325 MG TABLET 650 MG PO (20:40)
[2022-07-16] MEDS: Pravastatin Sodium 20 MG TABLET PO (20:42)
[2022-07-17] VITALS (9 sets, daily range): BP systolic 93–115; BP diastolic 59–71; PULSE 86–109; RESP 17–22; TEMP 36–36.7; O2SAT 91–97; BMI 43.8
[2022-07-17 07:01] LABS: Anion Gap 13 (12-20); Blood Urea Nitrogen 41 mg/dL (9-16); Calcium 8.8 mg/dL (8.4-10.2); Carbon Dioxide 34 mmol/L (22-29); Chloride 92 mmol/L (96-108); Creatinine Clr Calc Pharmacy 58.4; Estimated Glomerular Filt Rate 48; Glucose Random 156 mg/dL (60-115); Potassium 3.9 mmol/L (3.3-5.1); Sodium 135 mmol/L (135-145)
[2022-07-17 07:51] LABS: Glucose, Whole Blood 168 mg/dL (60-115)
[2022-07-17] MEDS: Loratadine 10 MG TABLET PO (07:55)
[2022-07-17] MEDS: Zinc Sulfate 220 MG CAPSULE PO (07:55)
[2022-07-17] MEDS: Ferrous Sulfate 324 MG TABLET.DR PO (07:55)
[2022-07-17] MEDS: Empagliflozin 10 MG TABLET PO (07:55)
[2022-07-17] MEDS: Multivitamin TABLET 1 TAB PO (07:55)
[2022-07-17] MEDS: Gabapentin 300 MG CAPSULE PO ×3 (07:55→21:23)
[2022-07-17] MEDS: Cholecalciferol (Vitamin D3) 25 MCG TABLET PO (07:55)
[2022-07-17] MEDS: Docusate Sodium 100 MG CAPSULE PO (07:55)
[2022-07-17] MEDS: guaiFENesin LA 600 MG TAB.ER.12H PO ×2 (07:56→21:23)
[2022-07-17] MEDS: Torsemide 20 MG TABLET 60 MG PO ×2 (07:56→21:23)
[2022-07-17] MEDS: Insulin Lispro 100 UNIT/ML 3 ML VIAL SUBCUT ×8 (07:57→21:25)
[2022-07-17] MEDS: Lidocaine 4 % Patch ADH..PATCH 1 PATCH TRANSDERMA (07:57)
[2022-07-17] MEDS: allopurinoL 100 MG TABLET PO (07:57)
[2022-07-17] MEDS: 0.9 % Sodium Chloride Flush 3 ML SYRINGE IVFLUSH ×3 (07:57→21:26)
[2022-07-17] MEDS: Insulin Glargine,Hum.rec.anlog 100 UNIT/ML 10 ML VIAL 40 UNIT SUBCUT (07:58)
[2022-07-17] MEDS: Albuterol/Iprat 2.5/0.5MG 3 ML AMPUL.NEB INHALE ×4 (08:06→20:34)
[2022-07-17 11:29] LABS: Glucose, Whole Blood 347 mg/dL (60-115)
--- NOTE | 2022-07-17 12:34 | P.PNIM_ITS ---
Subjective Subjective Date of Service: 07/17/22 Interval History: feeling better this morning complaining of b/l leg heaviness and having difficulty with ambulation also complaining of right arm discomfort at previous IV site, denies nausea vomiting abdominal pain , no diarrhea, tolerating diet, denies shortness of breath, denies chest pain, hoping to received physical therapy while in hospital, Perez catheter with clear urine Review of Systems Review of Systems: Yes all other systems are reviewed and are negative Physical Exam Vital Signs: Vital Signs: Last Vital Signs Temp 96.8 F 07/17/22 08:00 Pulse 88 07/17/22 11:49 Resp 17 07/17/22 11:49 BP 115/60 07/17/22 08:00 Pulse Ox 93 07/17/22 08:00 O2 Del Method 07/17/22 08:00 O2 Flow Rate 4 07/17/22 08:00 Oxygen Flow Rate 4 07/10/22 00:00 BMI result Body Mass Index 43.8 Const: Other: General? sitting c omfortably, in no acute distress.? N clara , supple no JV D. CVS? regular ra te rhythm, Respira tory lungs clear t o auscultation, no respiratory distr ess, no wheeze, no rhonchi, bibasila r crackles. Gastro intestinal abdomen soft, nontender, bowel sounds audib le, no guarding , no rigidity. Extre mities? mild ariana ing edema, likely baseline big calf muscles Neuro non focal , speech sydnee ar. psych appropri ate affect Objective Data Active Medications Acetaminophen (Acetaminophen 325 Mg Tablet) 650 mg PO Q6H PRN PRN Reason: Pain, Mild (Pain Scale 1-3) Last Admin: 07/16/22 20:40 Dose: 650 mg Documented By: CHERRY Albuterol Sulfate (Albuterol Sulfate 90 Mcg 8 Gm Inhaler) 2 puff INHALE Q6H PRN PRN Reason: shortness of breath or wheezing Albuterol/Ipratropium (Albuterol/Iprat 2.5/0.5mg 3 Ml Ampul.Neb) 3 ml INHALE RQ4H WHILE AWAKE [facility] Last Admin: 07/17/22 11:49 Dose: 3 ml Documented By: ONEIL Allopurinol (Allopurinol 100 Mg Tablet) 100 mg PO DAILY [facility] Last Admin: 07/17/22 07:57 Dose: 100 mg Documented By: GABRIEL Dextrose (Dextrose 50 % 25 Gm/50 Ml Syringe) 25 gm IVPUSH Q15M PRN; Protocol PRN Reason: per Hypoglycemia Standing Ord. Docusate Sodium (Docusate Sodium 100 Mg Capsule) 100 mg PO DAILY PRN PRN Reason: Constipation Docusate Sodium (Docusate Sodium 100 Mg Capsule) 100 mg PO DAILY [facility] Last Admin: 07/17/22 07:55 Dose: 100 mg Documented By: GABRIEL Empagliflozin (Empagliflozin 10 Mg Tablet) 10 mg PO DAILY [facility] Last Admin: 07/17/22 07:55 Dose: 10 mg Documented By: GABRIEL Ferrous Sulfate (Ferrous Sulfate 324 Mg Tablet.Dr) 324 mg PO DAILY [facility] Last Admin: 07/17/22 07:55 Dose: 324 mg Documented By: GABRIEL Fluticasone/Vilanterol (Fluticasone/Vilanterol 200/25 Blst.W.Dev) 1 puff INHALE RDAILY [facility] Last Admin: 07/16/22 17:16 Dose: Not Given Documented By: GABRIEL Non-Admin Reason: respiratory paged multiple times Gabapentin (Gabapentin 300 Mg Capsule) 300 mg PO TID [facility] Last Admin: 07/17/22 07:55 Dose: 300 mg Documented By: GABRIEL Glucose (Glucose Gel 15 Gm Gel..Gram.) 15 gm PO Q15M PRN; Protocol PRN Reason: per Hypoglycemia Standing Ord. Guaifenesin (Guaifenesin La 600 Mg Tab.Er.12h) 600 mg PO BID [facility] Last Admin: 07/17/22 07:56 Dose: 600 mg Documented By: GABRIEL Insulin Glargine (Insulin Glargine,Hum.Rec.Anlog 100 Unit/Ml 10 Ml Vial) 40 unit SUBCUT DAILY [facility] Last Admin: 07/17/22 07:58 Dose: 40 unit Documented By: GABRIEL Insulin Human Lispro (Insulin Lispro 100 Unit/Ml 3 Ml Vial) 0 unit SUBCUT QIDACHS [facility]; Protocol Last Admin: 07/17/22 12:06 Dose: 12 unit Documented By: GABRIEL Insulin Human Lispro (Insulin Lispro 100 Unit/Ml 3 Ml Vial) 5 unit SUBCUT QIDACHS [facility] Last Admin: 07/17/22 12:06 Dose: 5 unit Documented By: GABRIEL Lidocaine (Lidocaine 4 % Patch Adh..Patch) 1 patch TRANSDERMA DAILY [facility]; Protocol Last Admin: 07/17/22 07:57 Dose: 1 patch Documented By: GABRIEL Loratadine (Loratadine 10 Mg Tablet) 10 mg PO DAILY [facility] Last Admin: 07/17/22 07:55 Dose: 10 mg Documented By: GABRIEL Multivitamins/Vitamin C (Multivitamin Tablet) 1 tab PO DAILY [facility] Last Admin: 07/17/22 07:55 Dose: 1 tab Documented By: GABRIEL Ondansetron HCl (Ondansetron Hcl 4 Mg/2 Ml Vial) 4 mg IVPUSH Q8H PRN PRN Reason: Nausea and Vomiting Pharmacy Consult (Consult Rx Perform Med Rec) 1 each MISCELLANE ONCE PRN PRN Reason: Consult order Pravastatin Sodium (Pravastatin Sodium 20 Mg Tablet) 20 mg PO BEDTIME [facility] Last Admin: 07/16/22 20:42 Dose: 20 mg Documented By: CHERRY Psyllium Hydrophilic Mucilloid (Psyllium Seed 3.4 Gm Powd.Pack) 3.4 gm PO DAILY [facility] Last Admin: 07/17/22 07:57 Dose: 3.4 gm Documented By: GABRIEL Rivaroxaban (Rivaroxaban 15 Mg Tablet) 15 mg PO DAILY@1700 [facility] Last Admin: 07/16/22 17:16 Dose: 15 mg Documented By: GABRIEL Sodium Chloride (0.9 % Sodium Chloride Flush 3 Ml Syringe) 3 ml IVFLUSH QSHIFT [facility] Last Admin: 07/17/22 07:57 Dose: 3 ml Documented By: GABRIEL Tiotropium Buffalo (Tiotropium [place] 18 Mcg Cap.W.Dev) 1 puff INHALE RDAILY [facility] Last Admin: 07/17/22 08:06 Dose: 1 puff Documented By: LALO Torsemide (Torsemide 20 Mg Tablet) 60 mg PO BID [facility]; Protocol Last Admin: 07/17/22 07:56 Dose: 60 mg Documented By: GABRIEL Vitamin D (Cholecalciferol (Vitamin D3) 25 Mcg Tablet) 25 mcg PO DAILY [facility] Last Admin: 07/17/22 07:55 Dose: 25 mcg Documented By: GABRIEL Zinc Sulfate (Zinc Sulfate 220 Mg Capsule) 220 mg PO DAILY [facility] Last Admin: 07/17/22 07:55 Dose: 220 mg Documented By: GABRIEL Labs CBC & Chem 7: 07/16/22 11:23 07/17/22 05:41 Labs: Laboratory Results - last 24 hr 07/16/22 07/16/22 07/16/22 09:41 13:51 15:32 Anion Gap Estim Creat Clear Calc Estimated GFR POC Glucose 298 H Random Glucose Calcium Total Bilirubin 22.2 H 1.0 Direct Bilirubin 0.5 AST 29 ALT 17 Alkaline Phosphatase 118 H Total Protein 6.3 L Albumin 3.1 L 07/16/22 07/17/22 07/17/22 20:34 05:41 07:43 Anion Gap 13 Estim Creat Clear Calc 58.4 Estimated GFR 48 POC Glucose 191 H 168 H Random Glucose 156 H Calcium 8.8 Total Bilirubin Direct Bilirubin AST ALT Alkaline Phosphatase Total Protein Albumin 07/17/22 11:14 Anion Gap Estim Creat Clear Calc Estimated GFR POC Glucose 347 H Random Glucose Calcium Total Bilirubin Direct Bilirubin AST ALT Alkaline Phosphatase Total Protein Albumin Assessment and Plan (1) Hypokalemia: Status: Acute (2) Acute on chronic diastolic (congestive) heart failure: Status: Acute (3) Edema: Status: Acute Plan 72-year-old female with past medical history significant for diastolic heart failure, pulmonary hypertension, tricuspid valve regurgitation, AFib, COPD, HLD, and DM2 who presents to the ED with worsening edema over the past 2 weeks.?She was admitted for acute exacerbation of heart failure and treated with aggressive diuresising. # acute? on chronic diastolic CHF exacerbation with excess of 40 Ib weight gain clinically appears stable with no significant volume load, is negative > 28liter? fluid balance, diuretics Lasix and Aldactone were held, due to soft blood pressure and alkalosis started back on torsemide 60 mg by mouth b.i.d., Cardio recommend to dc metoprolol, and discharged on metolazone 2.5 mg 3x weekly, Aldactone 25 mg daily CardioMEMS device interrogated will follow with Cardiology will DC Perez catheter today recommend to ambulate to the bathroom patient seen by Physical therapy they recommend home with PT once medically stable # DM2-- elevated blood sugars, strongly recommend to follow diabetic diet,continue Jardiance, SSI, Lantus # HTN-- blood pressure improved this morning, metoprolol discontinued, continue torsemide 60 mg b.i.d. will resume Aldactone 25 mg daily resume potassium 40 mEq b.i.d. patient takes 80 mEq potassium b.i.d. follow labs #Permanent AFIB-- DC metoprolol, continue Xarelto for stroke prevention # CKD3-- Cr 1.1 stable #Hypokaelmia-- d/t? diuretics, repleted and normalized, resume potassium supplement 40 mg b.i.d. # elevated total bili of 22.2 patient with no nausea no vomiting no abdominal pain , repeat bili 1 likely for was an error # morbid obesity-encouraged to lose weight. # nasal congestion-cotninue loratidine,does not want fluticasone nasal spray and azlastine, continue Mucinex. Full code DVT prophylaxis:Xarelto inpatient need: requiring close cardiac monitoring since difficult to assess fluid status, placed back on diuretics, Perez discontinued, PT recommends home with PT. Time Spent With Patient Time: Total time managing care of this patient today ____ minutes. Quality Stroke Does the patient have a stroke diagnosis?: No VTE Prior VTE?: No VTE Risk Level:: Medical - moderate - high VTE Device Contraindication: Treatment Not Indicated VTE Drug Contraindication: N/A - Med Ordered
--- NOTE | 2022-07-17 13:12 | P.PNCA_ITS ---
Subjective Subjective Date of Service: 07/17/22 Principal diagnosis: Heart failure Interval history: Seen at 1100. Today she reports that she [facility]. She does have sob with activity which is not new. She is still requiring O2 at 3- 4 liters. No chest pains, palpitations, dizziness. Leg edema more today that yesterday. BP better. Wants to go home soon. Tells me she does not want rehab and will need additional help in home setting. Review of Systems Review of Systems as above Yes all other systems are reviewed and are negative Physical Exam Vital Signs: Last Vital Signs Temp 96.8 F 07/17/22 08:00 Pulse 88 07/17/22 11:49 Resp 17 07/17/22 11:49 BP 115/60 07/17/22 08:00 Pulse Ox 93 07/17/22 08:00 O2 Del Method 07/17/22 08:00 O2 Flow Rate 4 07/17/22 08:00 Oxygen Flow Rate 4 07/10/22 00:00 BMI result Body Mass Index 43.8 Const General: cooperative, comfortable and no acute distress Orientation/consciousness: patient oriented x3 Neck Neck: Yes normal visual inspection and Yes no JVD Resp Other: short of breath with movement/ activity. still requiring O2 supplement 4 liters Auscultation: crackles (lower lobes), no rales, no rhonchi and no wheezes Cardio Rate: regular rate Rhythm: abnormal rhythm Heart sounds: S1 normal heart sound present, S2 normal heart sound present, no gallops, no murmurs and no rubs GI Other: obese Neuro General: patient oriented x3 Extrem Other: obese, nonpitting edema of legs Psych Appearance: grossly normal Mental Status: mental status grossly normal Speech and movement: Normal speech and movement present Objective Labs and Meds Result diagrams: 07/16/22 11:23 07/17/22 05:41 Lab results: Laboratory Results - last 24 hr 07/16/22 07/16/22 07/16/22 13:51 15:32 20:34 Sodium Potassium Chloride Carbon Dioxide Anion Gap BUN Creatinine Estim Creat Clear Calc Estimated GFR POC Glucose 298 H 191 H Random Glucose Calcium Total Bilirubin 1.0 Direct Bilirubin 0.5 AST 29 ALT 17 Alkaline Phosphatase 118 H Total Protein 6.3 L Albumin 3.1 L 07/17/22 07/17/22 07/17/22 05:41 07:43 11:14 Sodium 135 Potassium 3.9 D Chloride 92 L Carbon Dioxide 34 H Anion Gap 13 BUN 41 H Creatinine 1.11 Estim Creat Clear Calc 58.4 Estimated GFR 48 POC Glucose 168 H 347 H Random Glucose 156 H Calcium 8.8 Total Bilirubin Direct Bilirubin AST ALT Alkaline Phosphatase Total Protein Albumin Progress Note: A&P Assessment and plan (1) Acute on chronic diastolic (congestive) heart failure: Status: Acute Assessment and Plan: History of diastolic and right-sided heart failure. Last echo 02/01/22 with EF 65- 70%, mod increase in RV size and decreased in RVSF, LA mod dilated. Being treated for decompensated HF. Diuresed for several days with lasix drip. Fluid balance negative 28.8 L since admission. Weight down approximately 30 lb based on fluid balance and actual weight measurements. Dry weight around 260lbs based on clinical status. Cardiomems reading done 07/11 showed elevation of PA readings: 39/ 31/25 and Reading done yesterday showed PA readings: , improved. Sheseline. Lasix drip stopped 07/15/22 and started on Torsemide 60mg bid today. She continues to require increased O2 requirement from her home baseline 2 L. She is on 4 L with sats 93% which could be from atelectasis. She has Incentive spirometer at bedside and has been encouraged to use it. BP had been running on low side and antihypertensive were held. Metoprolol stopped. Will Restart Aldactone at 25mg daily. Has required ongoing KCL supplements at home and hospital. ( prior to admit was on 80meq bid). K was 4.9 yesterday and supplements held. K 3.9 today. With the restart of Torsemide, will restart on KCl 40meq daily for now. Recheck of BMP, BNP in am. Continue Jardiance. Plan to resume Metolazone 2.5 mg - Was taking 2 times weekly and will likely need to be on it 3 times weekly going forward. She can have ice chips in a quantity that falls within her fluid restriction. Strict I+O monitoring. Continue Daily weights. Increase physical activity: ambulate at least 2-3 times daily - PT now working with her. Wean O2 as able down to her usual home 2 liters, as able, keeping Sat > 90%. We will follow. (2) Acute on chronic right-sided heart failure: Status: Acute (3) Shortness of breath: Status: Acute (4) Chronic atrial fibrillation: Status: Acute Assessment and Plan: Hx afib, chronic, asymptomatic. Has been on Metoprolol. Discuss with Dr Lau yesterday. With her HF syndrome, we stopped Metoprolol. May benefit from rhythm control more than rate control. On Xarelto, renal dose for anticoagulation. No bleeding issues noted. (5) COPD (chronic obstructive pulmonary disease): Status: Acute Assessment and Plan: Followed by hospitalist. On O2 supplement. Wearing CPAP at night. (6) Supplemental oxygen dependent: Status: Acute (7) MELANIE (obstructive sleep apnea): Status: Acute Time Spent With Patient Time: Total time managing care of this patient today _24___ minutes. Progress Note: Quality Stroke Does the patient have a stroke diagnosis?: No Procedures Date of Service Date of Service: 07/17/22
[2022-07-17 16:18] LABS: Glucose, Whole Blood 251 mg/dL (60-115)
[2022-07-17] MEDS: Rivaroxaban 15 MG TABLET PO (17:14)
[2022-07-17] MEDS: Spironolactone 25 MG TABLET PO (17:25)
[2022-07-17] MEDS: Potassium Chloride ER 20 MEQ TAB.ER.PRT 40 MEQ PO ×2 (17:27→21:22)
[2022-07-17 20:01] LABS: Glucose, Whole Blood 231 mg/dL (60-115)
[2022-07-17] MEDS: Pravastatin Sodium 20 MG TABLET PO (21:23)
[2022-07-18 03:54] VITALS: BP 111/74; PULSE 98; RESP 18; O2SAT 91
[2022-07-18 06:00] VITALS: BMI 43.9
[2022-07-18 07:30] VITALS: BP 112/53; PULSE 116; RESP 18; TEMP 36.1; O2SAT 95
[2022-07-18] MEDS: Albuterol/Iprat 2.5/0.5MG 3 ML AMPUL.NEB INHALE (07:40)
[2022-07-18 07:43] VITALS: PULSE 88; RESP 18; O2SAT 95
[2022-07-18] MEDS: guaiFENesin LA 600 MG TAB.ER.12H PO (07:47)
[2022-07-18 07:48] LABS: Glucose, Whole Blood 190 mg/dL (60-115)
[2022-07-18 07:48] LABS: Anion Gap 15 (12-20); Blood Urea Nitrogen 40 mg/dL (9-16); Calcium 8.5 mg/dL (8.4-10.2); Carbon Dioxide 33 mmol/L (22-29); Chloride 93 mmol/L (96-108); Creatinine Clr Calc Pharmacy 54.5; Estimated Glomerular Filt Rate 44; Glucose Random 152 mg/dL (60-115); Sodium 137 mmol/L (135-145)
[2022-07-18] MEDS: Loratadine 10 MG TABLET PO (07:48)
[2022-07-18] MEDS: Spironolactone 25 MG TABLET PO (07:48)
[2022-07-18] MEDS: Empagliflozin 10 MG TABLET PO (07:48)
[2022-07-18] MEDS: Cholecalciferol (Vitamin D3) 25 MCG TABLET PO (07:48)
[2022-07-18] MEDS: Docusate Sodium 100 MG CAPSULE PO (07:48)
[2022-07-18] MEDS: Ferrous Sulfate 324 MG TABLET.DR PO (07:48)
[2022-07-18] MEDS: allopurinoL 100 MG TABLET PO (07:48)
[2022-07-18] MEDS: Multivitamin TABLET 1 TAB PO (07:48)
[2022-07-18] MEDS: Potassium Chloride ER 20 MEQ TAB.ER.PRT 40 MEQ PO (07:48)
[2022-07-18] MEDS: Gabapentin 300 MG CAPSULE PO (07:48)
[2022-07-18] MEDS: Insulin Lispro 100 UNIT/ML 3 ML VIAL SUBCUT ×4 (07:49→11:28)
[2022-07-18] MEDS: 0.9 % Sodium Chloride Flush 3 ML SYRINGE IVFLUSH (07:49)
[2022-07-18] MEDS: Zinc Sulfate 220 MG CAPSULE PO (07:49)
[2022-07-18] MEDS: Insulin Glargine,Hum.rec.anlog 100 UNIT/ML 10 ML VIAL 40 UNIT SUBCUT (07:49)
[2022-07-18] MEDS: Lidocaine 4 % Patch ADH..PATCH 1 PATCH TRANSDERMA (07:50)
[2022-07-18 07:56] LABS: B Type Natriuretic Peptide 429 pg/mL (<100)
[2022-07-18] MEDS: Torsemide 20 MG TABLET 60 MG PO (08:04)
--- NOTE | 2022-07-18 10:49 | PM.DS ---
DS: Providers Provider Date of Service: 07/18/22 Date of admission: 07/04/22 14:20 Primary care physician: Teri Max MD Consults: 07/04/22 19:51 Consult to Cardiology Routine Consulting Provider: Richi Duran Reason for consultation: Acute CHF Has provider been notified: No DS: Diagnosis Discharge Diagnosis (1) Acute on chronic diastolic (congestive) heart failure: Status: Acute (2) Acute on chronic right-sided heart failure: Status: Acute (3) Shortness of breath: Status: Acute (4) Chronic atrial fibrillation: Status: Acute (5) COPD (chronic obstructive pulmonary disease): Status: Acute (6) Supplemental oxygen dependent: Status: Acute (7) MELANIE (obstructive sleep apnea): Status: Acute DS: Summary Hospital Course Hospital Course: from initial hpi: Chief Complaint: Increasing peripheal edema Patient is a 72-year-old female with past medical history significant for diastolic heart failure, pulmonary hypertension, tricuspid valve regurgitation, AFib, COPD, HLD, and DM2 who presents to the ED with worsening edema over the past 2 weeks.? Patient states that she has had worsening edema for the past 2 weeks despite increasing her home diuretics.? She feels like her legs and abdomen feels ?heavy? and notes that she has gained over 40 lb since her last discharge from the hospital.? Patient also has been experiencing increased shortness of breath with exertion.? As of today she could hardly walk or move around.? Patient denies dizziness, lightheadedness, chest pain/pressure, or palpitations.? No abdominal pain or difficulty with bowel or bladder habits.? Patient also requests a flu shot.? Of note patient is well-known to the hospital and was last hospitalized on 04/04/2022 for similar complaints. In the ED patient was given furosemide 40 mg IV.? Labs were significant for elevated BNP of 488 and slightly elevated troponin of 29.2.? Chest x-ray showed mild cardiomegaly but no acute cardiopulmonary process.? Patient will be admitted for management of acute heart failure with aggressive diuresing. hospital course: On chronic diastolic CHF with 40 lb weight gain. Patient was diuresed 28 L and on discharge transition to torsemide and metolazone. She should also start mechanical compression for lower extremities. CardioMEMS device was placed. For diabetes she was continue on insulin. For hypertension her blood pressure was low normal. For permanent atrial fibrillation she was off metoprolol due to low blood pressures, continued on Xarelto. Her CKD 3 remained stable. For hypokalemia she was replaced. For morbid obesity weight loss recommended. Patient is feeling better will be discharged home. Time Spent with Patient Time attestation: Total time managing care of this patient today ____ minutes. Discharge coordination time: Greater than 30 minutes Quality: Safe Use of Opioids Does Pt have an Active Cancer Diagnosis on the Problem List?: No Quality: Stroke Does the patient have a stroke diagnosis?: No Physical Exam Vital Signs: Vital Signs: Last Vital Signs Temp 96.9 F 07/18/22 07:30 Pulse 88 07/18/22 07:43 Resp 18 07/18/22 07:43 BP 112/53 L 07/18/22 07:30 Pulse Ox 95 07/18/22 07:30 O2 Del Method 07/18/22 07:30 O2 Flow Rate 4 07/18/22 07:30 Oxygen Flow Rate 4 07/10/22 00:00 BMI result Body Mass Index 43.9 Const: General: cooperative, comfortable and no acute distress Orientation/consciousness: patient oriented x3 Neck: Neck: Yes normal visual inspection and Yes no JVD Resp: Other: short of breath with movement/ activity. still requiring O2 supplement 4 liters Auscultation: crackles (lower lobes), no rales, no rhonchi and no wheezes Cardio: Rate: regular rate Rhythm: abnormal rhythm Heart sounds: S1 normal heart sound present, S2 normal heart sound present, no gallops, no murmurs and no rubs GI: Other: obese Neuro: General: patient oriented x3 Extrem: Other: obese, nonpitting edema of legs Psych: Appearance: grossly normal Mental Status: mental status grossly normal Speech and movement: Normal speech and movement present DS: Data Data Completed and Pending Completed studies during hospitalization [Text1]: Procedures Assistance with Respiratory Ventilation, Less than 24 Consecutive Hours, Continuous Positive Airway Pressure (04/04/22) Labs on day of discharge: Laboratory Results - last 24 hr 07/17/22 07/17/22 07/17/22 11:14 15:50 19:41 Sodium Potassium Chloride Carbon Dioxide Anion Gap BUN Creatinine Estim Creat Clear Calc Estimated GFR POC Glucose 347 H 251 H 231 H Random Glucose Calcium B-Natriuretic Peptide 07/18/22 07/18/22 07/18/22 05:47 05:47 07:32 Sodium 137 Potassium 4.0 Chloride 93 L Carbon Dioxide 33 H Anion Gap 15 BUN 40 H Creatinine 1.19 Estim Creat Clear Calc 54.5 Estimated GFR 44 POC Glucose 190 H Random Glucose 152 H Calcium 8.5 B-Natriuretic Peptide 429 H Discharge Plan Discharge Anticipated Discharge Date/Time: 07/18/22 10:43 Patient Disposition: Home Health Service Discharge Diagnosis: chf, copd Referrals: [facility] [Outside] - 1 Week Teri Max MD [Primary Care Provider] - 1 Week Discharge Medications: New fluticasone furoate-vilanterol [Breo Ellipta] 200-25 mcg/dose Blister With Device 1 inh inhalation RDAILY Qty: 60 0RF Spiriva with HandiHaler 18 mcg Capsule, W/Inhalation Device 18 mcg inhalation RDAILY Qty: 30 0RF torsemide 20 mg Tablet 60 mg PO BID Qty: 0 0RF Protocol: Hold for SBP< HOLD for SBP < : 90 potassium chloride 20 mEq Tablet,Er Particles/Crystals 40 meq PO DAILY Qty: 0 0RF Continued (DME) OneTouch Ultra Blue Test Strip Strip See Rx Instructions .ROUTE .MEDSUPPLY Qty: 100 11RF Rx Instructions: 4x daily (DME) lancets [OneTouch Delica Plus Lancet] 33 gauge misc See Rx Instructions .ROUTE .MEDSUPPLY Qty: 100 11RF Rx Instructions: 4x daily (DME) FreeStyle Santiago 14 Day Sensor Kit See Rx Instructions .Route Qty: 2 11RF Rx Instructions: As directed albuterol sulfate 90 mcg/actuation HFA aerosol inhaler 2 puff inhalation Q6H PRN (Reason: shortness of breath or wheezing) Qty: 1 0RF Jardiance 10 mg tablet 10 mg PO DAILY Qty: 90 3RF potassium chloride 20 mEq tablet,ER particles/crystals 80 meq PO BID 30 Days Qty: 240 2RF pravastatin 20 mg tablet 20 mg PO BEDTIME Qty: 90 0RF gabapentin 300 mg capsule 300 mg PO TID 90 Days Qty: 270 0RF insulin aspart U-100 [Novolog Flexpen U-100 Insulin] 100 unit/mL (3 mL) insulin pen 4 - 12 unit subcut TIDAC Rx Instructions: 12 in the morning, 8 at lunch and 4 at dinner insulin glargine [Basaglar KwikPen U-100 Insulin] 100 unit/mL (3 mL) insulin pen 35 unit SUBCUT DAILY 90 Days Qty: 31.5 11RF Rx Instructions: JOHANA, no substitutions. (DME) pen needle, diabetic [BD Ultra-Fine Linda Pen Needle] 32 gauge x 5/32 needle See Rx Instructions .Route Qty: 100 11RF Rx Instructions: 4x daily Spiriva with HandiHaler 18 mcg capsule, w/inhalation device 1 cap inhalation DAILY 90 Days Qty: 90 3RF fluticasone propion-salmeterol [Advair Diskus] 500-50 mcg/dose blister with device 1 inh PO BID Qty: 180 1RF Trulicity 4.5 mg/0.5 mL pen injector 4.5 mg SUBCUT TH@0900 spironolactone [Aldactone] 25 mg tablet 12.5 mg PO DAILY Qty: 30 0RF Xarelto 15 mg tablet 1 tab PO DAILY multivitamin Tablet 1 tab PO DAILY docusate sodium [Colace] 100 mg capsule 100 mg PO DAILY cholecalciferol (vitamin D3) 25 mcg (1,000 unit) capsule 25 mcg PO DAILY zinc acetate 50 mg (zinc) capsule 50 mg PO DAILY Rx Instructions: swallow whole; do not chew/break/dissolve/open vitamin B complex Tablet 1 tab PO DAILY ferrous sulfate [Feosol] 325 mg (65 mg iron) tablet 325 mg PO DAILY allopurinol 100 mg tablet 100 mg PO DAILY Changed metolazone 2.5 mg tablet 2.5 mg PO MOTHSA Qty: 30 0RF Discontinued metoprolol tartrate 25 mg tablet 12.5 mg PO BID Qty: 30 5RF bumetanide 1 mg tablet 2 tab PO BID Discharge Orders: Discharge Order (Routine); Ordered 07/18/22 Ordered By: Julito Low Diet: Diabetic diet Activity on Discharge: As tolerated Stand Alone Forms: Patient Portal Discharge page Other Ambulatory Orders: Basic Metabolic Panel Fasting (Routine) Timeframe: 3 Days Facility: [facility] - Location: Laboratory Ordered By: Julito Low Complete Blood Count no Diff (Routine) Timeframe: 3 Days Facility: [facility] - Location: Laboratory Ordered By: Julito Low Care Plan Goals: recovery Health Concerns: copd, chf Plan of Treatment: meds as prescribed, mechanical compression of lower extremities Assessment: see above
[2022-07-18 11:26] LABS: Glucose, Whole Blood 260 mg/dL (60-115)
--- NOTE | 2022-07-18 12:01 | PM.PNCARD ---
Subjective Subjective Date of Service: 07/18/22 <MOHIT Linton - Last Filed: 07/18/22 12:19> 07/18/22 <Dave Lau MD - Last Filed: 07/18/22 20:35> Principal diagnosis: Heart failure <MOHIT Linton - Last Filed: 07/18/22 12:19> Interval history: Seen at 1045. Today she tells me that she is going home. She reports shortness of breath with activity, which she says it at her baseline. Her only concern about going home is lifting her legs up into the bed. She has already called her VNA and has her shower help coming in the am. Wearing O2 at 2 liters currently. No chest pains, palpitation, dizziness. Legs with nonpitting edema, no weeping of skin. She says she can weigh herself at home - has talking scale. <MOHIT Linton - Last Filed: 07/18/22 12:19> Review of Systems Review of Systems as above <MOHIT Linton - Last Filed: 07/18/22 12:19> Yes all other systems are reviewed and are negative <MOHIT Linton - Last Filed: 07/18/22 12:19> Physical Exam Vital Signs: Last Vital Signs Temp 96.9 F 07/18/22 07:30 Pulse 88 07/18/22 07:43 Resp 18 07/18/22 07:43 BP 112/53 L 07/18/22 07:30 Pulse Ox 95 07/18/22 07:30 O2 Del Method 07/18/22 07:30 O2 Flow Rate 4 07/18/22 07:30 Oxygen Flow Rate 4 07/10/22 00:00 BMI result Body Mass Index 43.9 <MOHIT Linton - Last Filed: 07/18/22 12:19> Const General: cooperative, comfortable and no acute distress <MOHIT Linton - Last Filed: 07/18/22 12:19> Orientation/consciousness: patient oriented x3 <MOHIT Linton - Last Filed: 07/18/22 12:19> Neck Neck: Yes normal visual inspection and Yes no JVD <Isabel Adames [facility] - Last Filed: 07/18/22 12:19> Resp Other: short of breath with movement/ activity. O2 supplement alternating between 2 and 4 liters. <Isabel Adames [facility] - Last Filed: 07/18/22 12:19> Auscultation: crackles (lower lobes), no rales, no rhonchi and no wheezes <Isabel Zacarias [facility] - Last Filed: 07/18/22 12:19> Cardio Rate: regular rate [facility] Last Filed: 07/18/22 12:19> Rhythm: abnormal rhythm <[facility] - Last Filed: 07/18/22 12:19> Heart sounds: S1 normal heart sound present, S2 normal heart sound present, no gallops, no murmurs and no rubs <[facility] - Last Filed: 07/18/22 12:19> GI Other: obese <Isabel Zacarias [facility] - Last Filed: 07/18/22 12:19> Neuro General: patient oriented x3 <[facility] - Last Filed: 07/18/22 12:19> Extrem Other: obese, nonpitting edema of legs <Isabel Adames [facility] - Last Filed: 07/18/22 12:19> Psych Appearance: grossly normal <Isabel Zacarias [facility] - Last Filed: 07/18/22 12:19> Mental Status: mental status grossly normal <Isabel Zacarias [facility] - Last Filed: 07/18/22 12:19> Speech and movement: Normal speech and movement present <[facility] - Last Filed: 07/18/22 12:19> Objective Labs and Meds Result diagrams: : 07/16/22 11:23 07/18/22 05:47 <Isabel Adames [facility] - Last Filed: 07/18/22 12:19> Lab results: Laboratory Results - last 24 hr 07/17/22 07/17/22 07/18/22 15:50 19:41 05:47 Sodium 137 Potassium 4.0 Chloride 93 L Carbon Dioxide 33 H Anion Gap 15 BUN 40 H Creatinine 1.19 Estim Creat Clear Calc 54.5 Estimated GFR 44 POC Glucose 251 H 231 H Random Glucose 152 H Calcium 8.5 B-Natriuretic Peptide 07/18/22 07/18/22 07/18/22 05:47 07:32 11:22 Sodium Potassium Chloride Carbon Dioxide Anion Gap BUN Creatinine Estim Creat Clear Calc Estimated GFR POC Glucose 190 H 260 H Random Glucose Calcium B-Natriuretic Peptide 429 H <MOHIT Linton - Last Filed: 07/18/22 12:19> Progress Note: A&P Assessment and plan (1) Acute on chronic diastolic (congestive) heart failure: Status: Acute <MOHIT Linton - Last Filed: 07/18/22 12:19> Assessment and Plan: History of diastolic and right-sided heart failure. Last echo 02/01/22 with EF 65-70%, mod increase in RV size and decreased in RVSF, LA mod dilated. Has been treated for decompensated HF. Diuresed for several days with lasix drip. Fluid balance negative 28.9 L since admission. Weight down approximately 30 lb based on fluid balance and actual weight measurements. Dry weight around 260-263 lbs based on clinical status. Cardiomems reading done 07/11 showed elevation of PA readings: 39/ 31/25 and Reading done 07/16 showed PA readings: 36//19, improved. Lasix drip stopped 07/15/22 and started on Torsemide 60mg bid yesterday. She continues to require increased O2 supplement between 2- 4 liters, which could be from atelectasis. She has Incentive spirometer at bedside and has been encouraged to use it. BP had been running on low side and now improved. Her Metoprolol stopped. Aldactone restarted at 25mg daily. Has required ongoing KCL supplements at home and hospital. ( prior to admit was on 80meq bid). K was 4.0 today. Continue Jardiance. Will resume Metolazone 2.5 mg - Was taking 2 times weekly and will have her increase to three times weekly going forward. With the Metolazone use, recommend KCL be increased to 60meq BID and plan for electrolytes in 1 week. Wt today 263lb. Recommend home VNA with increased frequency to assist with cardiomems readings - which are ideally to be done daily and to help with heart failure monitoring and home PT. Pt refuses to go to rehab facility which would be best with her limits to mobility with her morbid obesity and shortness of breath with activity. Following discharge - we will arrange for a post hospital follow up in our office. We will be monitoring her cardiomems readings remotely and calling her with med adjustments as needed. <MOHIT Linton - Last Filed: 07/18/22 12:19> (2) Acute on chronic right-sided heart failure: Status: Acute <FARIDEH LintonC - Last Filed: 07/18/22 12:19> (3) Shortness of breath: Status: Acute <MOHIT Linton - Last Filed: 07/18/22 12:19> (4) Chronic atrial fibrillation: Status: Acute <FARIDEH LintonC - Last Filed: 07/18/22 12:19> Assessment and Plan: Hx afib, chronic, asymptomatic. Has been on Metoprolol. Discuss with Dr Lau yesterday. With her HF syndrome, we stopped Metoprolol. May benefit from rhythm control more than rate control. On Xarelto, renal dose for anticoagulation. No bleeding issues noted. <MOHIT Linton - Last Filed: 07/18/22 12:19> (5) COPD (chronic obstructive pulmonary disease): Status: Acute <FARIDEH LintonC - Last Filed: 07/18/22 12:19> Assessment and Plan: Followed by hospitalist. On O2 supplement. Wearing CPAP at night. <FARIDEH LintonC - Last Filed: 07/18/22 12:19> (6) Supplemental oxygen dependent: Status: Acute <FARIDEH LintonC - Last Filed: 07/18/22 12:19> (7) MELANIE (obstructive sleep apnea): Status: Acute <FARIDEH LintonC - Last Filed: 07/18/22 12:19> Assessment and Plan: Seen and examined at bedside. Will be going home today. I have advised her to check her weight with her home scale. I have also advised her that if she gains more than 2 lb she should reach out to us. <Dave Lau MD - Last Filed: 07/18/22 20:35> Time Spent With Patient Time: Total time managing care of this patient today _24___ minutes. <MOHIT Linton - Last Filed: 07/18/22 12:19> Progress Note: Quality Stroke Does the patient have a stroke diagnosis?: No <MOHIT Linton - Last Filed: 07/18/22 12:19> Procedures Date of Service Date of Service: 07/18/22 <MOHIT Linton - Last Filed: 07/18/22 12:19>
== END 2022-07-18 14:40 | disposition home health service (06) | DRG 291 ==
LOC: HO.ED 11:00 → HO.EDOVER 14:47 → HO.S3 07-05 13:05
PROVIDERS: Hospitalist; Internal Medicine; Nurse Practitioner Family; Physician Assistant Medical; Admitting Provider Student in an Organized Health Care Education/Training Program; Emergency Provider Emergency Medicine; PCP Internal Medicine; Visit Provider Internal Medicine
DX: I13.0 Hypertensive heart and chronic kidney disease with heart failure and stage 1 through stage 4 chronic kidney disease, or unspecified chronic kidney disease (principal); I50.33 Acute on chronic diastolic (congestive) heart failure; Z95.811 Presence of heart assist device; I48.21 Permanent atrial fibrillation; Z68.41 Body mass index [BMI] 40.0-44.9, adult; E87.3 Alkalosis; E11.22 Type 2 diabetes mellitus with diabetic chronic kidney disease; N18.30 Chronic kidney disease, stage 3 unspecified; E78.5 Hyperlipidemia, unspecified; I27.29 Other secondary pulmonary hypertension; I50.813 Acute on chronic right heart failure; E11.65 Type 2 diabetes mellitus with hyperglycemia; E66.01 Morbid (severe) obesity due to excess calories; J44.9 Chronic obstructive pulmonary disease, unspecified; G47.33 Obstructive sleep apnea (adult) (pediatric); E87.6 Hypokalemia; I07.1 Rheumatic tricuspid insufficiency; Z20.822 Contact with and (suspected) exposure to COVID-19; Z91.199 Patient's noncompliance with other medical treatment and regimen due to unspecified reason; Z71.3 Dietary counseling and surveillance; Z99.81 Dependence on supplemental oxygen; Z87.891 Personal history of nicotine dependence; Z88.5 Allergy status to narcotic agent; Z79.4 Long term (current) use of insulin; Z79.01 Long term (current) use of anticoagulants; Z79.51 Long term (current) use of inhaled steroids; Z79.899 Other long term (current) drug therapy
CPT/HCPCS: 0241U; 36415; 71045; 80048; 80053; 80076; 81003; 82803; 82947; 83036; 83605; 83735; 83880; 84484; 85025; 87040; 90686; 93005; 94640; 94660; 97162; 99285; C1758; J1940; P9047

== ENCOUNTER 2022-07-30 10:22 | Outpatient (REF) | payer MEDICARE, BC, SELFPAY ==
[2022-07-30 11:42] LABS: Anion Gap 18 (12-20); Blood Urea Nitrogen 60 mg/dL (9-16); Calcium 8.6 mg/dL (8.4-10.2); Carbon Dioxide 29 mmol/L (22-29); Chloride 89 mmol/L (96-108); Estimated Glomerular Filt Rate 28; Glucose Random 236 mg/dL (60-115); Potassium 3.6 mmol/L (3.3-5.1); Sodium 132 mmol/L (135-145)
[2022-07-30 16:09] LABS: B Type Natriuretic Peptide 405 pg/mL (<100)
== END 2022-07-30 10:23 | disposition home or self-care (01) ==
LOC: HO.HMGCLNP 10:22
PROVIDERS: Visit Provider Nurse Practitioner Family
DX: I50.813 Acute on chronic right heart failure (principal); E87.6 Hypokalemia; E83.51 Hypocalcemia
CPT/HCPCS: 80048; 83880

== ENCOUNTER 2022-08-10 09:44 | Inpatient (IN) | payer MEDICARE, BC, OTHER, SELFPAY ==
[2022-08-10] VITALS (9 sets, daily range): BP systolic 94–135; BP diastolic 37–72; PULSE 63–118; RESP 18–23; TEMP 36.2–36.7; O2SAT 89–98; BMI 50.8; BMI 48.8
--- NOTE | ~2022-08-10 | US_ITS ---
EXAMINATION: US VENOUS ULTRASOUND WITH DOPPLER LOWER EXTREMITY, BILATERAL CLINICAL INFORMATION: Cardiac arrest with right heart failure COMPARISON: Lower extremity venous ultrasound 01/23/2015 TECHNIQUE: Ultrasound of the deep veins is performed from the hip to the calf with compression sonography and color and pulse Doppler assessment. Spectral analysis with color-flow imaging is performed. FINDINGS: RIGHT: There is normal venous compression and respiratory variation and augmented flow. The visualized common femoral vein, superficial femoral vein, profunda femoral vein, popliteal vein, and the trifurcation region shows no evidence of deep venous thrombosis. There is no significant popliteal fossa cyst. LEFT: There is normal venous compression and respiratory variation and augmented flow. The visualized common femoral vein, superficial femoral vein, profunda femoral vein, popliteal vein, and the trifurcation region shows no evidence of deep venous thrombosis. There is no significant popliteal fossa cyst. If the patient's symptoms persist, followup ultrasound in 5 days 7 days might be of value to exclude proximal propagation from a non-visualized calf vein. The calf veins were not visualized on this exam. US/US venous duplex LE BI IMPRESSION: No DVT demonstrated in the bilateral lower extremities.
--- NOTE | ~2022-08-10 | XR_ITS ---
EXAMINATION: XR CHEST CLINICAL INFORMATION: Hypoxia COMPARISON: 08/15/2022 TECHNIQUE: Frontal view of the chest was obtained. FINDINGS: Endotracheal tube terminates 4.5 cm above the estephanie. Esophageal temperature probe noted. Enteric tube extends into the stomach. Left internal jugular central venous catheter terminates over the mid SVC. Cardiac leads overlie the chest. The lungs are well expanded. Small bilateral pleural effusions are again noted. Increased right perihilar hazy opacity. Central vascular prominence remains. No pneumothorax. The cardiomediastinal silhouette remains prominent, with a calcified aorta. XR/XR chest 1V IMPRESSION: 1. Endotracheal tube terminating 4.5 cm above the estephanie. 2. Similar appearance of small bilateral pleural effusions. Increased right perihilar opacity. This could represent edema. Atelectasis/pneumonia also possible.
--- NOTE | ~2022-08-10 | XR_ITS ---
EXAMINATION: PORTABLE CHEST 1 VIEW CLINICAL INFORMATION: CVL PLACEMENT . COMPARISON: 08/12/2022. TECHNIQUE: Portable frontal view of the chest was obtained. FINDINGS: Endotracheal tube tip approximately 3 cm above the estephanie. New left IJ central venous catheter tip projects along the lateral aspect of the superior vena cava. Blunting the costophrenic angle suggests tiny effusions. No pneumothorax. No overt edema although there is mild central vascular prominence. Left-sided pulmonary arterial pressure monitor is noted. Vascular calcification in aorta. Cardiac silhouette remains enlarged. No acute bony abnormality XR/XR chest 1V IMPRESSION: Tubes and lines as described. New left IJ central venous catheter tip projects along the lateral aspect of the superior vena cava. No pneumothorax. Tiny effusions and central vascular prominence but no overt edema.
--- NOTE | ~2022-08-10 | CT_ITS ---
EXAMINATION: CT HEAD WITHOUT CONTRAST CLINICAL INFORMATION: Altered mental status COMPARISON: CT of the head 07/29/2019 TECHNIQUE: Contiguous axial imaging was performed from the skull base to vertex without intravenous administration of contrast. Coronal and sagittal reformatted images are performed at the CT scanner. [This CT examination was performed using dose optimization techniques as appropriate, variously including the following: *Automated exposure control *Adjustment of mA and/or kV according to patient size (this includes techniques or standardized protocols for targeted exams where dose is matched to indication/reason for exam; i.e. extremities or head) *Use of iterative reconstruction technique] DLP: 847 mGy-cm. FINDINGS: There is a geographic area of low attenuation involving the left-sided white matter matter deep to the left insular cortex. Coronal image 205/399 series 7 this is new since the exam of 07/29/2019 though is indeterminate for age. No intracranial hemorrhage. No abnormal mass-effect or midline shift is seen. [place]ff[place] to white matter differentiation is well preserved. No extra-axial fluid collections are identified. There is generalized global volume loss. There is moderate prominence of the ventricles and the sulci . There is mild hypodensity of the periventricular white matter due to chronic small vessel ischemic disease. There are vascular calcifications of the internal carotid arteries bilaterally. Chronic lacunar infarct in the right thalamus There is no osseous abnormality. The mastoid air cells and visualized portions of the paranasal sinuses are well-aerated. CT/CT head/brain wo IV con IMPRESSION: 1. Geographic area of low attenuation involving the left-sided white matter deep to the left insular cortex. This is new since the exam of 07/29/2019 though is indeterminate for age. If there is clinical concern for acute ischemia, consider MRI for further evaluation. 2. No intracranial hemorrhage.
--- NOTE | ~2022-08-10 | XR_ITS ---
EXAMINATION: XR CHEST CLINICAL INFORMATION: Hypoxia. COMPARISON: Chest 08/10/2022 TECHNIQUE: Frontal view of the chest was obtained. FINDINGS: There is cardiomegaly with increased pulmonary vascularity consistent with mild vascular congestion. The lungs are hyperinflated but clear. There is a new endotracheal tube with its tip approximately 6.4 cm above the estephanie. No gross bony abnormality seen. XR/XR chest 1V IMPRESSION: 1. Cardiomegaly with mild pulmonary vascular congestion. 2. New endotracheal tube tip is 6.4 cm above the estephanie.
--- NOTE | ~2022-08-10 | XR_ITS ---
EXAMINATION: XR CHEST CLINICAL INFORMATION: SOB. COMPARISON: None TECHNIQUE: Frontal view of the chest was obtained. FINDINGS: The lungs are well-expanded without acute pneumonic process. The heart size is normal with mild increased pulmonary vascularity. No gross bony abnormality seen. XR/XR chest 1V IMPRESSION: Mild pulmonary vascular congestion is suspected.
--- NOTE | ~2022-08-10 | XR_ITS ---
EXAMINATION: XR CHEST CLINICAL INFORMATION: Fever. New hypoxia. COMPARISON: 08/12/2022 TECHNIQUE: Frontal view of the chest was obtained. FINDINGS: Endotracheal tube terminates 4 cm above the estephanie. The enteric tube extends into the stomach. Cardiac leads overlie the chest. Low lung volumes. Small bilateral pleural effusions. Similar bibasilar opacities. No pneumothorax. The cardiomediastinal silhouette remains enlarged with a calcified aorta. XR/XR chest 1V IMPRESSION: 1. Endotracheal tube terminating 4 cm above the estephanie. 2. Small pleural effusions. Similar bibasilar opacities. This could represent atelectasis or pneumonia.
--- NOTE | 2022-08-10 09:50 | ECG_ITS ---
Test Reason : SOB Blood Pressure : / mmHG Vent. Rate : 093 BPM Atrial Rate : 000 BPM P-R Int : 000 ms QRS Dur : 092 ms QT Int : 384 ms P-R-T Axes : 000 005 012 degrees QTc Int : 477 ms Atrial fibrillation Low voltage QRS Nonspecific T wave abnormality Abnormal ECG When compared with ECG of 04-JUL-2022 11:04, Criteria for Septal infarct are no longer Present Referred By: Andie Blackburn Electronically Signed By:Dave Lau
--- NOTE | 2022-08-10 10:13 | ED_ITS ---
HPI - SOB/Dyspnea General Chief Complaint: Dyspnea Stated Complaint: SOB 85% 3LPM @ HOME Time Seen by Provider: 08/10/22 09:50 Source: patient, EMS and old records reviewed Mode of arrival: EMS Limitations: no limitations History of Present Illness HPI Narrative: 72 yo female with history of morbid obesity, COPD on 3L NC, MELANIE on BiPAP, DM2, HFpEF, afib on Xarleto, with recent admission 07/04-07/18 for volume overload (diuresed -30L) who presents to the ER with worsening SOB, LE edema and weight gain since discharge. She reports she was discharged at a weight of 262 lbs. She was 294 lbs today. She reports compliance with her torsemide and metolazone but admits to not complying to low salt diet. She lives at home in an apartment, she uses walker to ambulate. She has been more short of breath with minimal e xertion. Her friend called 911 today because she did not like the way her breathing looks. Patient herself reports that her breathing has been bad for ?a long time. ? is an worsening since she was discharged from the hospital. She denies any chest pain. She has a slight cough which is chronic and unchanged from her baseline. She has been compliant with her BiPAP at nighttime. She denies any fevers or chills. No nausea, vomiting, diarrhea. No known sick contacts. MD elicited complaint: shortness of breath Pertinent past history: COPD and congestive heart failure Onset (ago): week(s) Timing: constant and progressively worsening Severity: similar to previous episodes Exacerbating factors: lying flat, exertion and movement Relieving factors: oxygen, rest and upright position Known history of: COPD and congestive heart failure Associated symptoms: cough and lower extremity pain Treatment prior to arrival: oxygen Related Data Home oxygen amount: 3 liters Home Medications Medication Instructions Recorded Confirmed cholecalciferol (vitamin D3) 25 25 mcg PO DAILY 04/24/20 08/10/22 mcg (1,000 unit) capsule vitamin B complex 1 tab PO DAILY 04/24/20 08/10/22 zinc acetate 50 mg (zinc) capsule 50 mg PO DAILY 04/24/20 08/10/22 multivitamin 1 tab PO DAILY 06/13/20 08/10/22 ferrous sulfate 325 mg (65 mg 325 mg PO DAILY 09/14/20 08/10/22 iron) tablet (Feosol) docusate sodium 100 mg capsule 100 mg PO DAILY 05/31/21 08/10/22 (Colace) allopurinol 100 mg tablet 100 mg PO DAILY 09/24/21 08/10/22 dulaglutide 4.5 mg/0.5 mL 4.5 mg subcut TU@0900 04/04/22 08/10/22 subcutaneous pen injector (Trulicity) insulin aspart U-100 100 unit/mL 4 - 12 unit subcut TIDAC 06/05/22 08/10/22 (3 mL) subcutaneous pen (Novolog FlexPen U-100 Insulin aspart) rivaroxaban 15 mg tablet (Xarelto) 15 mg PO DAILY@1800 08/10/22 08/10/22 spironolactone 25 mg tablet 12.5 mg PO DAILY 08/10/22 08/10/22 Previous Rx's Medication Instructions Recorded blood sugar diagnostic (OneTouch #100 ea 08/16/20 Ultra Blue Test Strip) lancets 33 gauge (OneTouch Delica #100 ea 01/01/21 Plus Lancet) flash glucose sensor (FreeStyle #2 ea 06/11/21 Santiago 14 Day Sensor kit) albuterol sulfate 90 mcg/actuation 2 puff inhalation Q6H PRN 12/17/21 aerosol inhaler shortness of breath or wheezing #1 ea empagliflozin 10 mg tablet 10 mg PO DAILY #90 tabs 02/22/22 (Jardiance) pravastatin 20 mg tablet 20 mg PO BEDTIME #90 tabs 04/15/22 gabapentin 300 mg capsule 300 mg PO TID 90 days #270 caps 05/10/22 Basaglar KwikPen U-100 Insulin 100 35 unit (0.35 mL) subcut DAILY 90 06/17/22 unit/mL (3 mL) subcutaneous days #31.5 mL (insulin glargine) pen needle, diabetic 32 gauge x #100 ea 06/24/22 (BD Ultra-Fine Linda Pen Needle) fluticasone 500 mcg-salmeterol 50 1 inh PO BID #180 grams 07/05/22 mcg/dose blistr powdr for inhalation (Advair Diskus) tiotropium bromide 18 mcg capsule 18 mcg inhalation RDAILY #30 07/17/22 with inhalation device (Spiriva inhalations with HandiHaler) metolazone 2.5 mg tablet 2.5 mg PO DAILY 90 days #90 tabs 07/24/22 potassium chloride 20 mEq 80 meq PO BID 30 days #240 tabs 07/24/22 tablet,extended release(part/cryst) torsemide 20 mg tablet 80 mg PO BID 90 days #720 tabs 07/24/22 Allergies Allergy/AdvReac Type Severity Reaction Status Date / Time oxycodone [Percocet] Allergy Unknown nausea and Verified 07/04/22 10:02 vomiting Review of Systems Review of Systems: Yes all other systems are reviewed and are negative [facility], [facility] Past Medical History Medical History (HFpEF) heart failure with preserved ejection fraction Bradycardia CHF exacerbation CKD (chronic kidney disease) Congestive heart failure Congestive heart failure (CHF) COPD (chronic obstructive pulmonary disease) Diabetes mellitus HLD (hyperlipidemia) HTN (hypertension) MCFP (current) use of insulin Morbid obesity Paroxysmal atrial fibrillation Persistent atrial fibrillation Phlebitis of left leg Pulmonary hypertension Right heart failure (secondary to left heart failure) Supplemental oxygen dependent T2DM (type 2 diabetes mellitus) Tricuspid regurgitation Vitamin D deficiency Surgical History History of colectomy (~1983) History of colonoscopy History of hernia repair (~07/2011) History of hysteroscopy (~2007) History of left breast biopsy (~04/09/11) History of left inguinal hernia repair (~01/28/20) Family History Family History Father No problems noted. Mother No problems noted. Brother No problems noted. Son No problems noted. Other Substance use disorder Social History Social History Household Members: None Housing: Apartment Do you presently have visiting nurse or other home services: Yes Unable to assess alcohol history related to: Unknown Alcohol intake: former Patient Tobacco Use Status: Former Tobacco user Smoked in Last 30 Days: No e-Cigarette/Vaping Use: Never Used Use of substances other than those prescribed or required for medical reasons: No Advance Directives: Yes Advance Directives on File: Yes Advance Directives Date on File: 02/09/21 service: No Current occupational status: retired Cognitive needs: No Hearing needs: No Vision needs: Yes Physical Exam Vital Signs: Vital Signs: Last Vital Signs Temp 97.2 F 08/10/22 12:08 Pulse 63 08/10/22 12:08 Resp 20 08/10/22 12:08 BP 100/37 L 08/10/22 12:08 Pulse Ox 92 08/10/22 09:54 O2 Del Method 08/10/22 12:08 O2 Flow Rate 3 08/10/22 12:08 Oxygen Flow Rate 3 08/10/22 09:54 BMI result Body Mass Index 50.8 Appearance: Alert elderly female sitting up on the stretcher, obese. Oriented X3. Mild respiratory distress. Eyes: Pupils equal, round and reactive to light. ENT: Pharynx normal. Neck: Normal inspection. Neck supple. CVS: Normal heart rate and rhythm. Pulses normal. Respiratory: Mild respiratory distress, RR mid 20s. speaking in 3-4 word sentences Breath sounds diminished with bibasilar rales Abdomen: Obese Soft and nontender. +BS x4 Skin: Skin warm and dry. Normal skin color. Normal skin turgor. No rashes. Extremities: 4+ pitting lower extremity edema from the feet to the proximal hip. Bilateral lower legs with erythema and warmth, few fluid filled blisters on the right lower leg. Dorsal RUE with diffuse ecchymossi, nontender, normla ROM of the elbow. Neuro: Oriented X 3. No motor deficit. No sensory deficit. Generally weak. Course Course Course Narrative: 72-year-old female with multiple medical problems including HFpEF, COPD with chronic hypercarbic, hypercapnic respiratory failure on 3 L nasal cannula baseline, MELANIE on BiPAP at night, AFib on Xarelto with recent admission for volume overload presents back to the ER with 32 lb weight gain in the last 3 and half weeks. She is more short of breath with worsening lower extremity edema. She was hypoxic to 85% on her baseline O2 at home per EMS. Arrival to the ER patient is slightly dyspneic, saturating 90% on 4L NC. Will check CXR, VBG, BNP, EKG. Will require admission. Reevaluation(s) Reevaluation #1: Patient continues to saturate well on 4 L nasaCannula. Slight increased work of breathing has improved. BNP over 700, increased from prior, was 400 range when she was discharged. IV Lasix ordered along with dose of IV albumin. Will s tart on Lasix infusion at 5 mg an hour for diuresis. Purewick used for accurate I's and O's Reevaluation #2: Hospitalist TT for admission Medications Administered Generic Name Dose Route Start Last Admin Trade Name Freq PRN Reason Stop Dose Admin Albumin Human 100 mls @ 100 mls/hr 08/10/22 11:26 08/10/22 12:11 Kedbumin 25 % IV 08/10/22 12:25 100 mls/hr ONCE ONE Administration Discontinued Medications Generic Name Dose Route Start Last Admin Trade Name Freq PRN Reason Stop Dose Admin Furosemide 40 mg 08/10/22 11:26 08/10/22 12:10 Furosemide 40 Mg/4 Ml Vial IVPUSH 08/10/22 11:27 40 mg STAT STA Administration Protocol Medical Decision Making Medical Decision Making [facility] Narrative: 72-year-old multiple medical comorbidities including diastolic heart failure, chronic hypoxic and hypercapnic respiratory failure on 3 L nasal cannula during the day and BiPAP at night, AFib on Xarelto, diabetes who presents to the ER for evaluation of worsening shortness of breath, lower extremity and weight gain. Exam and clinical presentation are most consistent with acute decompensated heart failure and volume overload. To require admission and IV diuresis. She is on diuretics and anticoagulation at baseline. Doubt DVT/PE. Getting full metabolic workup including labs, EKG, chest x-ray, VBG, viral panel. She took her diuretics this morning. Will await renal function prior to dosing IV diuresis, may require high-dose. Differential Diagnosis Differential Diagnoses: The differential diagnosis associated with the presentation includes Acute decompensated heart failure, COPD exacerbation, volume overload, pneumonia, less likely blood clot, cellulitis Admission/Observation Consideration of admission/observation: Escalation of care including admission/observation considered Will require admission for IV diuresis Consult Healthcare Provider Management of the patient was discussed with: Hospitalist Lab Data [facility] Lab Attestation statement: I reviewed the patient's lab results. Independently reviewed. Stable normocytic anemia, normal platelets and WBC. CKD at baseline with elevated BUN of 71. Mild hyponatremia likely in the setting of volume overload. Mild elevation of bilirubin and AST, could be due to hepatic congestion. BNP 755 consistent with acute heart failure exacerbation. Troponin 28.1 which seems to be her baseline from previous vi sits. Doubt any acute cardiac ischemia. 08/10/22 10:48 08/10/22 10:47 Labs: Lab Results 08/10/22 08/10/22 08/10/22 Range/Units 10:47 10:47 10:48 WBC 9.2 (4.8-10.8) X10*3/uL RBC 3.81 L (4.20-5.50) X10*6/uL Hgb 11.6 L (12.0-16.0) g/dl Hct 36.1 L (37.0-47.0) % MCV 94.8 (80.0-98.0) fL MCH 30.4 (27.0-33.0) pg MCHC 32.1 (31.0-35.0) g/dl RDW 18.6 H (11.0-16.0) % Plt Count 228 (160-400) X10*3/uL MPV 9.0 L (9.4-12.3) fL Immature Gran % (Auto) 0.6 H (0.0-0.4) % Neut % (Auto) 80.4 H (45-73) % Lymph % (Auto) 8.3 L (20-40) % Burnett % (Auto) 9.3 (2-11) % Eos % (Auto) 1.0 (0-4) % Baso % (Auto) 0.4 (0-2) % Lymph # (Auto) 0.8 L (1.2-4.9) X10*3/uL Burnett # (Auto) 0.9 (0.1-1.2) X10*3/uL Eos # (Auto) 0.1 (0.0-0.4) X10*3/uL Baso # (Auto) 0.0 (0.0-0.2) X10*3/uL Abs Immat Gran (auto) 0.06 H (0.00-0.03) X10*3/uL Absolute Neuts (auto) 7.4 (2.0-8.3) x10*3/uL Absolute Nucleated RBC 0.000 (0.0-0.012) X10*3/uL Nucleated RBC % (auto) 0.0 (0.0-0.2) /100WBC PT 17.1 H (10.0-13.1) SEC INR 1.5 H (0.9-1.1) APTT 32.7 (26.0-36.4) SEC Sodium 134 L (135-145) mmol/L Potassium 4.2 (3.3-5.1) mmol/L Chloride 94 L (96-108) mmol/L Carbon Dioxide 28 (22-29) mmol/L Anion Gap 16 (12-20) BUN 71 H (9-16) mg/dL Creatinine 1.63 H (0.5-1.4) mg/dL Estim Creat Clear Calc 45.0 Estimated GFR 31 Random Glucose 107 (60-115) mg/dL Lactic Acid (0.5-2.0) mmol/L Calcium 9.0 (8.4-10.2) mg/dL Magnesium 2.7 H (1.6-2.6) mg/dL Total Bilirubin 1.4 H (0.0-1.0) mg/dL Direct Bilirubin 0.7 H (0.0-0.5) mg/dL AST 36 H (5-31) U/L ALT 19 (0-31) U/L Alkaline Phosphatase 143 H (39-117) U/L Troponin I High Sens (<3.5-17.0) ng/L B-Natriuretic Peptide (<100) pg/mL Total Protein 6.7 (6.5-8.0) g/dL Albumin 3.3 L (3.5-5.0) g/dL Urine Color Urine Appearance Urine pH (5.0-9.0) Ur Specific [place] (1.005-1.025) Urine Protein (Neg-Trace) mg/dL Urine Glucose (UA) (Negative) mg/dL Urine Ketones (Negative) mg/dL Urine Blood (Negative) Urine Nitrite (Negative) Ur Leukocyte Esterase (Negative) Influenza Type A (PCR) (Negative) Influenza Type B (PCR) (Negative) RSV RNA Qual (PCR) (Negative) SARS-CoV-2 RNA (RT-PCR) (Negative) 08/10/22 08/10/22 08/10/22 Range/Units 10:48 10:48 10:49 WBC (4.8-10.8) X10*3/uL RBC (4.20-5.50) X10*6/uL Hgb (12.0-16.0) g/dl Hct (37.0-47.0) % MCV (80.0-98.0) fL MCH (27.0-33.0) pg MCHC (31.0-35.0) g/dl RDW (11.0-16.0) % Plt Count (160-400) X10*3/uL MPV (9.4-12.3) fL Immature Gran % (Auto) (0.0-0.4) % Neut % (Auto) (45-73) % Lymph % (Auto) (20-40) % Burnett % (Auto) (2-11) % Eos % (Auto) (0-4) % Baso % (Auto) (0-2) % Lymph # (Auto) (1.2-4.9) X10*3/uL Burnett # (Auto) (0.1-1.2) X10*3/uL Eos # (Auto) (0.0-0.4) X10*3/uL Baso # (Auto) (0.0-0.2) X10*3/uL Abs Immat Gran (auto) (0.00-0.03) X10*3/uL Absolute Neuts (auto) (2.0-8.3) x10*3/uL Absolute Nucleated RBC (0.0-0.012) X10*3/uL Nucleated RBC % (auto) (0.0-0.2) /100WBC PT (10.0-13.1) SEC INR (0.9-1.1) APTT (26.0-36.4) SEC Sodium (135-145) mmol/L Potassium (3.3-5.1) mmol/L Chloride (96-108) mmol/L Carbon Dioxide (22-29) mmol/L Anion Gap (12-20) BUN (9-16) mg/dL Creatinine (0.5-1.4) mg/dL Estim Creat Clear Calc Estimated GFR Random Glucose (60-115) mg/dL Lactic Acid 1.2 (0.5-2.0) mmol/L Calcium (8.4-10.2) mg/dL Magnesium (1.6-2.6) mg/dL Total Bilirubin (0.0-1.0) mg/dL Direct Bilirubin (0.0-0.5) mg/dL AST (5-31) U/L ALT (0-31) U/L Alkaline Phosphatase (39-117) U/L Troponin I High Sens 28.1 H (<3.5-17.0) ng/L B-Natriuretic Peptide 755 H (<100) pg/mL Total Protein (6.5-8.0) g/dL Albumin (3.5-5.0) g/dL Urine Color Urine Appearance Urine pH (5.0-9.0) Ur Specific [place] (1.005-1.025) Urine Protein (Neg-Trace) mg/dL Urine Glucose (UA) (Negative) mg/dL Urine Ketones (Negative) mg/dL Urine Blood (Negative) Urine Nitrite (Negative) Ur Leukocyte Esterase (Negative) Influenza Type A (PCR) (Negative) Influenza Type B (PCR) (Negative) RSV RNA Qual (PCR) (Negative) SARS-CoV-2 RNA (RT-PCR) (Negative) 08/10/22 08/10/22 Range/Units 10:51 11:41 WBC (4.8-10.8) X10*3/uL RBC (4.20-5.50) X10*6/uL Hgb (12.0-16.0) g/dl Hct (37.0-47.0) % MCV (80.0-98.0) fL MCH (27.0-33.0) pg MCHC (31.0-35.0) g/dl RDW (11.0-16.0) % Plt Count (160-400) X10*3/uL MPV (9.4-12.3) fL Immature Gran % (Auto) (0.0-0.4) % Neut % (Auto) (45-73) % Lymph % (Auto) (20-40) % Burnett % (Auto) (2-11) % Eos % (Auto) (0-4) % Baso % (Auto) (0-2) % Lymph # (Auto) (1.2-4.9) X10*3/uL Burnett # (Auto) (0.1-1.2) X10*3/uL Eos # (Auto) (0.0-0.4) X10*3/uL Baso # (Auto) (0.0-0.2) X10*3/uL Abs Immat Gran (auto) (0.00-0.03) X10*3/uL Absolute Neuts (auto) (2.0-8.3) x10*3/uL Absolute Nucleated RBC (0.0-0.012) X10*3/uL Nucleated RBC % (auto) (0.0-0.2) /100WBC PT (10.0-13.1) SEC INR (0.9-1.1) APTT (26.0-36.4) SEC Sodium (135-145) mmol/L Potassium (3.3-5.1) mmol/L Chloride (96-108) mmol/L Carbon Dioxide (22-29) mmol/L Anion Gap (12-20) BUN (9-16) mg/dL Creatinine (0.5-1.4) mg/dL Estim Creat Clear Calc Estimated GFR Random Glucose (60-115) mg/dL Lactic Acid (0.5-2.0) mmol/L Calcium (8.4-10.2) mg/dL Magnesium (1.6-2.6) mg/dL Total Bilirubin (0.0-1.0) mg/dL Direct Bilirubin (0.0-0.5) mg/dL AST (5-31) U/L ALT (0-31) U/L Alkaline Phosphatase (39-117) U/L Troponin I High Sens (<3.5-17.0) ng/L B-Natriuretic Peptide (<100) pg/mL Total Protein (6.5-8.0) g/dL Albumin (3.5-5.0) g/dL Urine Color Yellow Urine Appearance Clear Urine pH 5.5 (5.0-9.0) Ur Specific [place] 1.010 (1.005-1.025) Urine Protein Negative (Neg-Trace) mg/dL Urine Glucose (UA) 100 H (Negative) mg/dL Urine Ketones Negative (Negative) mg/dL Urine Blood Negative (Negative) Urine Nitrite Negative (Negative) Ur Leukocyte Esterase Negative (Negative) Influenza Type A (PCR) NEGATIVE (Negative) Influenza Type B (PCR) NEGATIVE (Negative) RSV RNA Qual (PCR) NEGATIVE (Negative) SARS-CoV-2 RNA (RT-PCR) NEGATIVE (Negative) Independent Interpretation I performed an independent interpretation of an: EKG and Plain X-Ray Interpretation: EKG - afib, HR 93 bpm, low voltage QRS, no ST segment elevations or depressions CXR - cardiomegaly, left-sided pleural effusion, volume overload Radiology Impression Discussion of test interpretation with radiology: I have reviewed the radiologist's reading. Radiologist Impression: CXR - IMPRESSION: Mild pulmonary vascular congestion is suspected. Independent Historian Clinical information obtained from an independent historian. History obtained from or confirmed by: EMS External Record Review External record reviewed: Inpatient record, Office record, Outpatient record, Prior outpatient labs and Prior outpatient radiology Tests considered The following testing was considered but not selected: LE dopplers - not ordered given already anticoagulated Prescription Management I considered prescription management with: Antibiotic not septic, not in COPD exacerbation, no ABX indicated Chronic Conditions Patient?s care impacted by: Diabetes, Hypertension and Other (COPD, CHF, dietary noncompliance) Critical Care Time Critical Care Time Critical Care Time: Yes Total Critical Care Time: 44 Attestation: I have personally provided critical care time exclusive of time spent on separately billable procedures. Time includes review of lab data, radiology results, discussion with consultants, and monitoring for potential decompensatio n. Intervention performed as documented. Discharge Plan Discharge Clinical Impression: Acute on chronic respiratory failure with hypoxia and hypercapnia, Volume overload, Acute exacerbation of congestive heart failure Patient Disposition: Admitted As Inpatient
--- NOTE | 2022-08-10 10:30 | PC.NURSE ---
pt alert and oriented,skin pwd, respirations work of breathing increased but breathing any where from 20-22, ls rales on the right lower bases and diminished, sating at 95-93 at 4l at nasal cannual, pt is oxygen depended at basline at 3l. pt denies pain just feels sob especially with exertion, bilateral extremities peding edema +[address] to her upper thigh area and right leg weeping a-fib on the monitor, perwick in place
[2022-08-10 10:58] LABS: MANUAL DIFF FLAG NO
[2022-08-10 10:59] LABS: Basophils Percent Auto 0.4 % (0-2); Eosinophils Absolute Auto 0.1 X10*3/uL (0.0-0.4); Hematocrit 36.1 % (37.0-47.0); Hemoglobin 11.6 g/dl (12.0-16.0); Imm Gran Abs Auto 0.06 X10*3/uL (0.00-0.03); Imm Gran Pct Auto 0.6 % (0.0-0.4); Lymphocytes Absolute Auto 0.8 X10*3/uL (1.2-4.9); Lymphocytes Percent Auto 8.3 % (20-40); Mean Corpuscular HGB Conc 32.1 g/dl (31.0-35.0); Mean Corpuscular Hemoglobin 30.4 pg (27.0-33.0); Mean Corpuscular Volume 94.8 fL (80.0-98.0); Monocytes Absolute Auto 0.9 X10*3/uL (0.1-1.2); Monocytes Percent Auto 9.3 % (2-11); Neutrophils Absolute Auto 7.4 x10*3/uL (2.0-8.3); Neutrophils Percent Auto 80.4 % (45-73); Platelet Count 228 X10*3/uL (160-400); Red Blood Count 3.81 X10*6/uL (4.20-5.50); Red Cell Distribution Width 18.6 % (11.0-16.0); White Blood Count 9.2 X10*3/uL (4.8-10.8)
[2022-08-10 11:04] LABS: INTERNATIONAL NORM RATIO 1.5 (0.9-1.1); Prothrombin Time 17.1 SEC (10.0-13.1)
[2022-08-10 11:07] LABS: Partial Thromboplastin Time 32.7 SEC (26.0-36.4)
[2022-08-10 11:17] LABS: Lactic Acid 1.2 mmol/L (0.5-2.0)
[2022-08-10 11:22] LABS: Alanine Aminotransferase 19 U/L (0-31); Albumin Level 3.3 g/dL (3.5-5.0); Alkaline Phosphatase 143 U/L (39-117); Anion Gap 16 (12-20); Aspartate Amino Transferase 36 U/L (5-31); Bilirubin Direct 0.7 mg/dL (0.0-0.5); Bilirubin Total 1.4 mg/dL (0.0-1.0); Blood Urea Nitrogen 71 mg/dL (9-16); Carbon Dioxide 28 mmol/L (22-29); Chloride 94 mmol/L (96-108); Estimated Glomerular Filt Rate 31; Glucose Random 107 mg/dL (60-115); Magnesium 2.7 mg/dL (1.6-2.6); Potassium 4.2 mmol/L (3.3-5.1); Sodium 134 mmol/L (135-145); Total Protein 6.7 g/dL (6.5-8.0)
[2022-08-10 11:27] LABS: B Type Natriuretic Peptide 755 pg/mL (<100)
[2022-08-10 11:27] LABS: Troponin-I High Sensitivity 28.1 ng/L (<3.5-17.0)
--- NOTE | 2022-08-10 11:34 | PHA.MEDREC ---
Pharmacy Consult ? Medication Reconciliation Pharmacy has completed the medication reconciliation. Patient had a list of medications with them. Spoke to patient to confirm updated meds.
[2022-08-10 11:39] LABS: Influenza A PCR NEGATIVE (Negative); Influenza B PCR NEGATIVE (Negative); Resp Syncy Virus RNA Qual PCR NEGATIVE (Negative); SARS COV2 PCR INHOUSE NEGATIVE (Negative)
[2022-08-10 11:50] LABS: Appearance Urine Clear; Color Urine Yellow; Glucose Urine UA 100 mg/dL (Negative); Leukocyte Esterase Urine Negative (Negative); Nitrite Urine Negative (Negative); PH 5.5 (5.0-9.0); Urine Blood Negative (Negative); Urine Ketones Negative (Negative); Urine Protein Negative (Neg-Trace)
--- NOTE | 2022-08-10 11:59 | MHC.EDTECH ---
pt cleaned and repositioned, bed linens changed. call light given
[2022-08-10] MEDS: Furosemide 40 MG/4 ML VIAL IVPUSH (12:10)
[2022-08-10] MEDS: Albumin Human 25 % 100 ML IV (12:11)
[2022-08-10 12:31] LABS: Procalcitonin 0.09 ng/mL
[2022-08-10] MEDS: Furosemide 200 MG in 0.9 % Sodium Chloride 80 ML IVCONT (12:39)
--- NOTE | 2022-08-10 12:42 | PM.IMHP ---
History of Present Illness Date of Service: 08/10/22 Attending physician on admission: Markus Landers Chief Complaint: SOB, Wieght gain Pt is a 72-year-old female with a PMH significant for?diastolic HFpEF, pulmonary hypertension, tricuspid valve regurgitation, AFib on Xeralto, COPD, HLD, and insulin-dependent DM2 who presents to the ED with worsening edema and SOB over the past few weeks.? Pt states that her SOB and edema began worsening ever since her last discharged on 07/18/2022. Pt claims she has been compliant with her medications but admits she has not been following a low-salt diet. Pt notes she has gained 30 lbs since discharge, can no longer lift her legs into her bed, and her legs weep clear water, the right worse than the left. As of today she could hardly walk or move around.? Patient denies dizziness, lightheadedness, chest pain/pressure, or palpitations.? No abdominal pain or difficulty with bowel or bladder habits.? Of note patient is well-known to the hospital and was last hospitalized on 07/04/2022 for similar complaints.? In the ED pt's BP a little soft at 100/37. Labs were significant for H&H 11.6/36.1, elevated BUN of 71, creatinine of 1.63 (in line with labs from 07/30/2022 but above of 1.15), elevated BNP of 755 (above baseline of 450). CXR showed mild pulmonary vascular congestion. EKG showed atrial fibrillation with no evidence of acute ischemia. Pt was treated with furosemide 40 mg IV push and started on furosemide drip 5mg/hr. Pt will be admitted to the hospital acute CHF exacerbation and treated with aggressive diuresing. Review of Systems Review of Systems: SOB LLE 30 lb weight gain since discharge last month No chest pain/pressure, palpitations Denies N/V/F/C, abdominal pain Yes all other systems are reviewed and are negative [facility] Medical History (HFpEF) heart failure with preserved ejection fraction Bradycardia CHF exacerbation CKD (chronic kidney disease) Congestive heart failure Congestive heart failure (CHF) COPD (chronic obstructive pulmonary disease) Diabetes mellitus HLD (hyperlipidemia) HTN (hypertension) group home (current) use of insulin Morbid obesity Paroxysmal atrial fibrillation Persistent atrial fibrillation Phlebitis of left leg Pulmonary hypertension Right heart failure (secondary to left heart failure) Supplemental oxygen dependent T2DM (type 2 diabetes mellitus) Tricuspid regurgitation Vitamin D deficiency Family History Father No problems noted. Mother No problems noted. Brother No problems noted. Son No problems noted. Other Substance use disorder Surgical History History of colectomy (~1983) History of colonoscopy History of hernia repair (~07/2011) History of hysteroscopy (~2007) History of left breast biopsy (~04/09/11) History of left inguinal hernia repair (~01/28/20) Social History Household Members: None Housing: Apartment Do you presently have visiting nurse or other home services: Yes Unable to assess alcohol history related to: Unknown Alcohol intake: former Patient Tobacco Use Status: Former Tobacco user Smoked in Last 30 Days: No e-Cigarette/Vaping Use: Never Used Use of substances other than those prescribed or required for medical reasons: No Currently Displaying Signs/Symptoms of Drug Intoxication Withdrawal: No Have you been hit, kicked, punched, or otherwise hurt by someone within the past year? If so, by whom?: No Do you feel safe in your current relationship?: No Current Relationship Is there a partner from a previous relationship who is making you feel unsafe now?: No Are you made to feel afraid or neglected: No Advance Directives: Yes Advance Directives on File: Yes Advance Directives Date on File: 02/09/21 Do you have thoughts of harming others: None Do you have a plan to hurt others: No Plan Recently lost weight without trying: No How much weight loss: Not applicable Eating poorly because of decreased appetite: No Nutrition screen score: 0 Nutrition Risks: Difficulty swallowing Patient : No service: No Current occupational status: retired Cognitive needs: No Hearing needs: No Vision needs: Yes Meds Allergies Allergy/AdvReac Type Severity Reaction Status Date / Time oxycodone [Percocet] Allergy Unknown nausea and Verified 07/04/22 10:02 vomiting Active Medications: Current Medications Furosemide 200 mg/ Sodium (Chloride) 100 mls @ 2.5 mls/hr IVCONT .Q24H SHILPA Last Admin: 08/10/22 12:39 Dose: 5 mg/hr, 2.5 mls/hr Pharmacy Consult (Consult Rx Perform Med Rec) 1 each MISCELLANE ONCE PRN PRN Reason: Consult order Home Medications Medication Instructions Recorded Confirmed Last Taken Type cholecalciferol (vitamin D3) 25 25 mcg PO DAILY 04/24/20 08/10/22 08/10/22 09:00 History mcg (1,000 unit) capsule vitamin B complex 1 tab PO DAILY 04/24/20 08/10/22 08/10/22 09:00 History zinc acetate 50 mg (zinc) capsule 50 mg PO DAILY 04/24/20 08/10/22 08/09/22 History multivitamin 1 tab PO DAILY 06/13/20 08/10/22 08/10/22 09:00 History ferrous sulfate 325 mg (65 mg 325 mg PO DAILY 09/14/20 08/10/22 08/10/22 09:00 History iron) tablet (Feosol) docusate sodium 100 mg capsule 100 mg PO DAILY 05/31/21 08/10/22 08/10/22 09:00 History (Colace) allopurinol 100 mg tablet 100 mg PO DAILY 09/24/21 08/10/22 08/10/22 09:00 History dulaglutide 4.5 mg/0.5 mL 4.5 mg subcut TU@0900 04/04/22 08/10/22 08/06/22 History subcutaneous pen injector (Trulicity) insulin aspart U-100 100 unit/mL 4 - 12 unit subcut TIDAC 06/05/22 08/10/22 08/10/22 09:00 History (3 mL) subcutaneous pen (Novolog FlexPen U-100 Insulin aspart) rivaroxaban 15 mg tablet (Xarelto) 15 mg PO DAILY@1800 08/10/22 08/10/22 08/09/22 History spironolactone 25 mg tablet 12.5 mg PO DAILY 08/10/22 08/10/22 08/10/22 09:00 History Physical Exam Vital Signs and Narrative: Vital Signs: Last Vital Signs Temp 97.2 F 08/10/22 12:08 Pulse 63 08/10/22 12:08 Resp 20 08/10/22 12:08 BP 100/37 L 08/10/22 12:08 Pulse Ox 92 08/10/22 09:54 O2 Del Method 08/10/22 12:08 O2 Flow Rate 3 08/10/22 12:08 Oxygen Flow Rate 3 08/10/22 09:54 BMI result Body Mass Index 50.8 Constitutional: Alert, in no acute distress. Mental Status: Oriented to person, place and time. Eyes: Pupils are equal, round, and reactive to light. Ear, Nose, and Throat: Oropharynx clear, mucous membranes moist. Ears and nose without deformities. Trachea midline. Respiratory: Crackles in the lower lung veneg[place] bilaterally. Cardiovascular: S1, S2 regular. No murmurs, rubs, or gallops. Gastrointestinal: Abdomen soft, non-tender, slighlty distended. Normal bowel sounds. Neurologic: Cranial nerves II-XI are grossly intact. No focal neurological deficits. Moves all extremities spontaneously. Skin: No rashes or lesions noted. Musculoskeletal: No cyanosis or clubbing. Extremities: 3+ pitting edema in lower legs bilaterally. Symmetrical bilateral lower leg erythema. Psychiatric: Normal mood and affect. Results Labs 08/10/22 10:48 08/10/22 10:47 Labs: Laboratory Results - last 24 hr 08/10/22 08/10/22 08/10/22 10:47 10:47 10:48 MCV 94.8 MCH 30.4 MCHC 32.1 RDW 18.6 H Plt Count 228 MPV 9.0 L Immature Gran % (Auto) 0.6 H Neut % (Auto) 80.4 H Lymph % (Auto) 8.3 L [place] % (Auto) 9.3 Eos % (Auto) 1.0 Baso % (Auto) 0.4 Lymph # (Auto) 0.8 L [place] # (Auto) 0.9 Eos # (Auto) 0.1 Baso # (Auto) 0.0 Abs Immat Gran (auto) 0.06 H Absolute Neuts (auto) 7.4 Absolute Nucleated RBC 0.000 Nucleated RBC % (auto) 0.0 PT 17.1 H INR 1.5 H APTT 32.7 Anion Gap 16 Estim Creat Clear Calc 45.0 Estimated GFR 31 Random Glucose 107 Lactic Acid Calcium 9.0 Magnesium 2.7 H Total Bilirubin 1.4 H Direct Bilirubin 0.7 H AST 36 H ALT 19 Alkaline Phosphatase 143 H Troponin I High Sens B-Natriuretic Peptide Total Protein 6.7 Albumin 3.3 L Procalcitonin Urine Color Urine Appearance Urine pH Ur Specific [place] Urine Protein Urine Glucose (UA) Urine Ketones Urine Blood Urine Nitrite Ur Leukocyte Esterase Influenza Type A (PCR) Influenza Type B (PCR) RSV RNA Qual (PCR) SARS-CoV-2 RNA (RT-PCR) 08/10/22 08/10/22 08/10/22 10:48 10:48 10:49 MCV MCH MCHC RDW Plt Count MPV Immature Gran % (Auto) Neut % (Auto) Lymph % (Auto) [place] % (Auto) Eos % (Auto) Baso % (Auto) Lymph # (Auto) [place] # (Auto) Eos # (Auto) Baso # (Auto) Abs Immat Gran (auto) Absolute Neuts (auto) Absolute Nucleated RBC Nucleated RBC % (auto) PT INR APTT Anion Gap Estim Creat Clear Calc Estimated GFR Random Glucose Lactic Acid 1.2 Calcium Magnesium Total Bilirubin Direct Bilirubin AST ALT Alkaline Phosphatase Troponin I High Sens 28.1 H B-Natriuretic Peptide 755 H Total Protein Albumin Procalcitonin Urine Color Urine Appearance Urine pH Ur Specific [place] Urine Protein Urine Glucose (UA) Urine Ketones Urine Blood Urine Nitrite Ur Leukocyte Esterase Influenza Type A (PCR) Influenza Type B (PCR) RSV RNA Qual (PCR) SARS-CoV-2 RNA (RT-PCR) 08/10/22 08/10/22 08/10/22 10:51 11:41 11:41 MCV MCH MCHC RDW Plt Count MPV Immature Gran % (Auto) Neut % (Auto) Lymph % (Auto) [place] % (Auto) Eos % (Auto) Baso % (Auto) Lymph # (Auto) [place] # (Auto) Eos # (Auto) Baso # (Auto) Abs Immat Gran (auto) Absolute Neuts (auto) Absolute Nucleated RBC Nucleated RBC % (auto) PT INR APTT Anion Gap Estim Creat Clear Calc Estimated GFR Random Glucose Lactic Acid Calcium Magnesium Total Bilirubin Direct Bilirubin AST ALT Alkaline Phosphatase Troponin I High Sens B-Natriuretic Peptide Total Protein Albumin Procalcitonin 0.09 Urine Color Yellow Urine Appearance Clear Urine pH 5.5 Ur Specific [place] 1.010 Urine Protein Negative Urine Glucose (UA) 100 H Urine Ketones Negative Urine Blood Negative Urine Nitrite Negative Ur Leukocyte Esterase Negative Influenza Type A (PCR) NEGATIVE Influenza Type B (PCR) NEGATIVE RSV RNA Qual (PCR) NEGATIVE SARS-CoV-2 RNA (RT-PCR) NEGATIVE Imaging Radiologist's Impressions: Impressions Chest X-Ray 08/10/22 11:07 IMPRESSION: Mild pulmonary vascular congestion is suspected. Assessment and Plan (1) Acute exacerbation of congestive heart failure: Status: Acute (2) Acute on chronic diastolic (congestive) heart failure: Status: Acute Plan Pt is a 72-year-old female with a PMH significant for?diastolic HFpEF, pulmonary hypertension, tricuspid valve regurgitation, AFib on Xeralto, COPD, HLD, and insulin-dependent DM2 who presents to the ED with worsening edema and SOB over the past few weeks.?Pt will be admitted to telemtry for treatment of acute CHF exacerbation with aggressive diuresing. Acute CHF exacerbation Patient has gained 30+ lb in the past few weeks since last admission Aggressive diuresing:? Furosemide IV 5/hr, continue spironolactone Hold metolazone Continue Jardiance Continue potassium chloride supplementation Follow lytes, mg, I/O Cardiology consult Insulin-dependent DM2 Hold home meds except for Jardiance SSI, lantus Hypotension BP a little soft, 95/55 Monitor closely CKD3 Above baseline, 1.63 Follow creatinine Full code Attending:? Dr. Landers DVT prophylaxis: On Xerelto Due to patient's need for aggressive IV diuretics for acute CHF, patient will require a hospital stay of at least 2 nights. Time Spent With Patient Time: Total time managing care of this patient today ____ minutes. Quality Stroke Does the patient have a stroke diagnosis?: No VTE Prior VTE?: No VTE Risk Level:: Medical - moderate - high VTE Device Contraindication: Treatment Not Indicated VTE Drug Contraindication: N/A - Med Ordered
[2022-08-10 12:43] LABS: Venous Blood Gas Refer to POC result
[2022-08-10 12:46] LABS: VBG Base Excess 9.2 mmol/L; VBG HCO3 35 mmol/L (22-26); VBG pCO2 55 mmHg; VBG pH 7.41 (7.32-7.43); VBG pO2 50 mmHg
[2022-08-10] MEDS: Gabapentin 300 MG CAPSULE PO ×2 (15:04→20:28)
[2022-08-10] MEDS: 0.9 % Sodium Chloride Flush 3 ML SYRINGE IVFLUSH ×2 (15:04→20:31)
--- NOTE | 2022-08-10 15:31 | PC.NURSE ---
report given to imc rn
[2022-08-10 16:13] LABS: Glucose, Whole Blood 88 mg/dL (60-115)
[2022-08-10] MEDS: Rivaroxaban 15 MG TABLET PO (17:15)
[2022-08-10 20:03] LABS: Glucose, Whole Blood 188 mg/dL (60-115)
[2022-08-10] MEDS: Pravastatin Sodium 20 MG TABLET PO (20:28)
[2022-08-10] MEDS: Insulin Lispro 100 UNIT/ML 3 ML VIAL SUBCUT (20:28)
[2022-08-10] MEDS: Potassium Chloride ER 20 MEQ TAB.ER.PRT 80 MEQ PO (20:28)
[2022-08-11] VITALS (8 sets, daily range): BP systolic 107–133; BP diastolic 57–62; PULSE 93–120; RESP 18–20; TEMP 35.9–37.1; O2SAT 89–93
[2022-08-11 07:14] LABS: Blood Urea Nitrogen 67 mg/dL (9-16); Creatinine Clr Calc Pharmacy 49.3; Estimated Glomerular Filt Rate 35; Glucose Random 130 mg/dL (60-115); Magnesium 2.6 mg/dL (1.6-2.6)
[2022-08-11 07:19] LABS: Anion Gap 18 (12-20); Carbon Dioxide 28 mmol/L (22-29); Chloride 95 mmol/L (96-108); Potassium 2.7 mmol/L (3.3-5.1); Sodium 138 mmol/L (135-145)
[2022-08-11 07:43] LABS: Glucose, Whole Blood 130 mg/dL (60-115)
[2022-08-11] MEDS: Fluticasone/Vilanterol 200/25 BLST.W.DEV 1 PUFF INHALE (07:50)
[2022-08-11] MEDS: Gabapentin 300 MG CAPSULE PO ×3 (08:33→21:23)
[2022-08-11] MEDS: allopurinoL 100 MG TABLET PO (08:33)
[2022-08-11] MEDS: Ferrous Sulfate 324 MG TABLET.DR PO (08:33)
[2022-08-11] MEDS: Potassium Chloride ER 20 MEQ TAB.ER.PRT 80 MEQ PO (08:33)
[2022-08-11] MEDS: Zinc Sulfate 220 MG CAPSULE PO (08:33)
[2022-08-11] MEDS: Cholecalciferol (Vitamin D3) 25 MCG TABLET PO (08:34)
[2022-08-11] MEDS: Empagliflozin 10 MG TABLET PO (08:34)
[2022-08-11] MEDS: Multivitamin TABLET 1 TAB PO (08:34)
[2022-08-11] MEDS: Docusate Sodium 100 MG CAPSULE PO (08:34)
[2022-08-11] MEDS: Insulin Glargine,Hum.rec.anlog 100 UNIT/ML 10 ML VIAL 25 UNIT SUBCUT (08:34)
[2022-08-11] MEDS: Spironolactone 25 MG TABLET 12.5 MG PO (08:34)
[2022-08-11] MEDS: 0.9 % Sodium Chloride Flush 3 ML SYRINGE IVFLUSH ×3 (08:35→21:24)
[2022-08-11 11:37] LABS: Glucose, Whole Blood 239 mg/dL (60-115)
--- NOTE | 2022-08-11 11:43 | PM.CNCAR ---
History of Present Illness History of Present Illness Date of Service: 08/11/22 Requesting physician: Markus Landers Chief complaint: SOB, edema Narrative: 72-year-old female with known history of diastolic heart failure, chronic atrial fibrillation, COPD and pulmonary hypertension who is presenting with congestive heart failure. She has been in and out of hospital multiple times in the last year and just left the hospital on July 18 after getting aggressive IV diuretics. She has had at home she was gaining weight and getting short of breath and also reached out to our office and was advised to take metolazone every day. Despite taking her medications she continued to gain weight and gained approximately 30 lb. She was short of breath and came to the emergency department and was admitted for IV diuretics. She is currently on Lasix drip and is approximately 4 L negative. She has hypokalemia and is receiving 70 mental potassium. She is on spironolactone 12.5 mg at home. She has chronic atrial fibrillation and has been on rivaroxaban 15 mg daily for anticoagulation. She is not on any rate-controlling medications due to right-sided heart failure in the past. 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 Mother No problems noted. Brother No problems noted. Son No problems noted. Other Substance use disorder Surgical History Surgical History History of colectomy (~1983) History of colonoscopy History of hernia repair (~07/2011) History of hysteroscopy (~2007) History of left breast biopsy (~04/09/11) History of left inguinal hernia repair (~01/28/20) Social History Social History Household Members: None Housing: Apartment Do you presently have visiting nurse or other home services: Yes Unable to assess alcohol history related to: Unknown Alcohol intake: former Patient Tobacco Use Status: Former Tobacco user Smoked in Last 30 Days: No e-Cigarette/Vaping Use: Never Used Use of substances other than those prescribed or required for medical reasons: No Currently Displaying Signs/Symptoms of Drug Intoxication Withdrawal: No Have you been hit, kicked, punched, or otherwise hurt by someone within the past year? If so, by whom?: No Do you feel safe in your current relationship?: No Current Relationship Is there a partner from a previous relationship who is making you feel unsafe now?: No Are you made to feel afraid or neglected: No Advance Directives: Yes Advance Directives on File: Yes Advance Directives Date on File: 02/09/21 Do you have thoughts of harming others: None Do you have a plan to hurt others: No Plan Recently lost weight without trying: No How much weight loss: Not applicable Eating poorly because of decreased appetite: No Nutrition screen score: 0 Nutrition Risks: Difficulty swallowing Patient : No service: No Current occupational status: retired Cognitive needs: No Hearing needs: No Vision needs: Yes Meds Allergies Allergy/AdvReac Type Severity Reaction Status Date / Time oxycodone [Percocet] Allergy Unknown nausea and Verified 07/04/22 10:02 vomiting Active Medications: Current Medications Acetaminophen (Acetaminophen 325 Mg Tablet) 650 mg PO Q6H PRN PRN Reason: Pain, Mild (Pain Scale 1-3) Albuterol Sulfate (Albuterol Sulfate 90 Mcg 8 Gm Inhaler) 2 puff INHALE Q6H PRN PRN Reason: shortness of breath or wheezing Allopurinol (Allopurinol 100 Mg Tablet) 100 mg PO DAILY [facility] Last Admin: 08/11/22 08:33 Dose: 100 mg Dextrose (Dextrose 50 % 25 Gm/50 Ml Syringe) 25 gm IVPUSH Q15M PRN; Protocol PRN Reason: per Hypoglycemia Standing Ord. Docusate Sodium (Docusate Sodium 100 Mg Capsule) 100 mg PO DAILY PRN PRN Reason: Constipation Docusate Sodium (Docusate Sodium 100 Mg Capsule) 100 mg PO DAILY [facility] Last Admin: 08/11/22 08:34 Dose: 100 mg Empagliflozin (Empagliflozin 10 Mg Tablet) 10 mg PO DAILY [facility] Last Admin: 08/11/22 08:34 Dose: 10 mg Ferrous Sulfate (Ferrous Sulfate 324 Mg Tablet.Dr) 324 mg PO DAILY [facility] Last Admin: 08/11/22 08:33 Dose: 324 mg Fluticasone/Vilanterol (Fluticasone/Vilanterol 200/25 Blst.W.Dev) 1 puff INHALE RDAILY [facility] Last Admin: 08/11/22 07:50 Dose: 1 puff Gabapentin (Gabapentin 300 Mg Capsule) 300 mg PO TID [facility] Last Admin: 08/11/22 08:33 Dose: 300 mg Glucose (Glucose Gel 15 Gm Gel..Gram.) 15 gm PO Q15M PRN; Protocol PRN Reason: per Hypoglycemia Standing Ord. Furosemide 200 mg/ Sodium (Chloride) 100 mls @ 2.5 mls/hr IVCONT .Q24H [facility] Last Admin: 08/10/22 12:39 Dose: 5 mg/hr, 2.5 mls/hr Insulin Glargine (Insulin Glargine,Hum.Rec.Anlog 100 Unit/Ml 10 Ml Vial) 25 unit SUBCUT DAILY [facility] Last Admin: 08/11/22 08:34 Dose: 25 unit Insulin Human Lispro (Insulin Lispro 100 Unit/Ml 3 Ml Vial) 0 unit SUBCUT QIDACHS [facility]; Protocol Last Admin: 08/11/22 08:39 Dose: Not Given Multivitamins/Vitamin C (Multivitamin Tablet) 1 tab PO DAILY [facility] Last Admin: 08/11/22 08:34 Dose: 1 tab Ondansetron HCl (Ondansetron Hcl 4 Mg/2 Ml Vial) 4 mg IVPUSH Q8H PRN PRN Reason: Nausea and Vomiting Pharmacy Consult (Consult Rx Perform Med Rec) 1 each MISCELLANE ONCE PRN PRN Reason: Consult order Potassium Chloride (Potassium Chloride Er 10 Meq Capsule.Er) 60 meq PO QID [facility] Last Admin: 08/11/22 11:01 Dose: Not Given Pravastatin Sodium (Pravastatin Sodium 20 Mg Tablet) 20 mg PO BEDTIME [facility] Last Admin: 08/10/22 20:28 Dose: 20 mg Rivaroxaban (Rivaroxaban 15 Mg Tablet) 15 mg PO DAILY@1800 [facility] Last Admin: 08/10/22 17:15 Dose: 15 mg Sodium Chloride (0.9 % Sodium Chloride Flush 3 Ml Syringe) 3 ml IVFLUSH QSHIFT [facility] Last Admin: 08/11/22 08:35 Dose: 3 ml Spironolactone (Spironolactone 25 Mg Tablet) 12.5 mg PO DAILY [facility]; Protocol Last Admin: 08/11/22 08:34 Dose: 12.5 mg Tiotropium [place] (Tiotropium [place] 18 Mcg Cap.W.Dev) 1 puff INHALE RDAILY [facility] Last Admin: 08/11/22 07:50 Dose: 1 puff Vitamin D (Cholecalciferol (Vitamin D3) 25 Mcg Tablet) 25 mcg PO DAILY [facility] Last Admin: 08/11/22 08:34 Dose: 25 mcg Zinc Sulfate (Zinc Sulfate 220 Mg Capsule) 220 mg PO DAILY [facility] Last Admin: 08/11/22 08:33 Dose: 220 mg Home Medications Medication Instructions Recorded Confirmed Last Taken Type cholecalciferol (vitamin D3) 25 25 mcg PO DAILY 04/24/20 08/10/22 08/10/22 09:00 History mcg (1,000 unit) capsule vitamin B complex 1 tab PO DAILY 04/24/20 08/10/22 08/10/22 09:00 History zinc acetate 50 mg (zinc) capsule 50 mg PO DAILY 04/24/20 08/10/22 08/09/22 History multivitamin 1 tab PO DAILY 06/13/20 08/10/22 08/10/22 09:00 History ferrous sulfate 325 mg (65 mg 325 mg PO DAILY 09/14/20 08/10/22 08/10/22 09:00 History iron) tablet (Feosol) docusate sodium 100 mg capsule 100 mg PO DAILY 05/31/21 08/10/22 08/10/22 09:00 History (Colace) allopurinol 100 mg tablet 100 mg PO DAILY 09/24/21 08/10/22 08/10/22 09:00 History dulaglutide 4.5 mg/0.5 mL 4.5 mg subcut TU@0900 04/04/22 08/10/22 08/06/22 History subcutaneous pen injector (Trulicity) insulin aspart U-100 100 unit/mL 4 - 12 unit subcut TIDAC 06/05/22 08/10/22 08/10/22 09:00 History (3 mL) subcutaneous pen (Novolog FlexPen U-100 Insulin aspart) rivaroxaban 15 mg tablet (Xarelto) 15 mg PO DAILY@1800 08/10/22 08/10/22 08/09/22 History spironolactone 25 mg tablet 12.5 mg PO DAILY 08/10/22 08/10/22 08/10/22 09:00 History Physical Exam Vital Signs: Vital Signs: Last Vital Signs Temp 96.9 F 08/11/22 11:27 Pulse 99 08/11/22 11:27 Resp 20 08/11/22 11:27 BP 115/59 L 08/11/22 11:27 Pulse Ox 93 08/11/22 11:27 O2 Del Method 08/11/22 11:27 O2 Flow Rate 4 08/11/22 11:27 Oxygen Flow Rate 3 08/10/22 09:54 BMI result Body Mass Index 48.8 GENERAL APPEARANCE: Short of breath, on supplemental oxygen, morbidly obese. NECK: no carotid bruit, elevated jugular venous distention. SKIN: no suspicious lesions, warm and dry. HEART: no murmurs, irregular rate and rhythm. LUNGS: clear to auscultation bilaterally. ABDOMEN: soft, nontender. EXTREMITIES: Bilateral 2+ edema. PERIPHERAL PULSES: equal. NEUROLOGIC: No gross deficits, AAO X 3 Objective Labs and Meds 08/10/22 10:48 08/11/22 05:45 Lab results: Laboratory Results - last 24 hr 08/10/22 08/10/22 08/10/22 10:51 11:41 11:41 VBG pH VBG pCO2 VBG pO2 VBG HCO3 VBG O2 Saturation VBG Base Excess Sodium Potassium Chloride Carbon Dioxide Anion Gap BUN Creatinine Estim Creat Clear Calc Estimated GFR POC Glucose Random Glucose Calcium Magnesium Procalcitonin 0.09 Urine Color Yellow Urine Appearance Clear Urine pH 5.5 Ur Specific Chromo 1.010 Urine Protein Negative Urine Glucose (UA) 100 H Urine Ketones Negative Urine Blood Negative Urine Nitrite Negative Ur Leukocyte Esterase Negative Influenza Type A (PCR) NEGATIVE Influenza Type B (PCR) NEGATIVE RSV RNA Qual (PCR) NEGATIVE SARS-CoV-2 RNA (RT-PCR) NEGATIVE 08/10/22 08/10/22 08/10/22 12:39 16:03 19:58 VBG pH 7.41 VBG pCO2 55 VBG pO2 50 VBG HCO3 35 H VBG O2 Saturation 74.0 VBG Base Excess 9.2 Sodium Potassium Chloride Carbon Dioxide Anion Gap BUN Creatinine Estim Creat Clear Calc Estimated GFR POC Glucose 88 188 H Random Glucose Calcium Magnesium Procalcitonin Urine Color Urine Appearance Urine pH Ur Specific Chromo Urine Protein Urine Glucose (UA) Urine Ketones Urine Blood Urine Nitrite Ur Leukocyte Esterase Influenza Type A (PCR) Influenza Type B (PCR) RSV RNA Qual (PCR) SARS-CoV-2 RNA (RT-PCR) 08/11/22 08/11/22 08/11/22 05:45 07:29 11:32 VBG pH VBG pCO2 VBG pO2 VBG HCO3 VBG O2 Saturation VBG Base Excess Sodium 138 Potassium 2.7 L D Chloride 95 L Carbon Dioxide 28 Anion Gap 18 BUN 67 H Creatinine 1.45 H Estim Creat Clear Calc 49.3 Estimated GFR 35 POC Glucose 130 H 239 H Random Glucose 130 H Calcium 9.0 Magnesium 2.6 Procalcitonin Urine Color Urine Appearance Urine pH Ur Specific Chromo Urine Protein Urine Glucose (UA) Urine Ketones Urine Blood Urine Nitrite Ur Leukocyte Esterase Influenza Type A (PCR) Influenza Type B (PCR) RSV RNA Qual (PCR) SARS-CoV-2 RNA (RT-PCR) Imaging Radiologist's impression: Impressions Chest X-Ray 08/10/22 11:07 IMPRESSION: Mild pulmonary vascular congestion is suspected. Assessment and Plan (1) Acute exacerbation of congestive heart failure: Status: Acute Plan 72-year-old female with chronic heart failure presenting with acute exacerbation of congestive heart failure. She has right more than left heart failure as usual. Significantly volume overloaded approximately 30 lb above her dry weight. On Lasix drip and diuresing well. Electrolytes are off and need close monitoring of potassium and magnesium and repletion accordingly. She is on spironolactone which can be increased to 25 mg daily and if she can tolerate 25 mg twice a day down the line. She has chronic atrial fibrillation. She is on rivaroxaban. Quite tough to manage her as she keeps developing significant volume overload and keeps coming back with significant weight gain and requires IV diuretics for days. On last discharge I had a detailed discussion with her about how to manage her weight but I think it is quite challenging for her to monitor her weight closely and to act in time. Once she gained significant weight and becomes short of breath I think or medications to not get absorbed due to right-sided heart failure and in that scenario she fails outpatient therapy. She is saying that visiting nurses were supposed to follow-up more closely and she was told that she will get more help at home but she has not had any further assessments for that. I think part of the issue is that she has been in and out of hospital and may be it was quite challenging to set that up. In any case the patient's concerns are that which she keeps coming back to the hospital with congestive heart failure and I have explained to her that currently her trend is that she stays at home for few weeks and then comes back unfortunately for significant volume overload and it is quite possible that she will be back in the hospital. I am not sure whether rhythm control strategy for atrial fibrillation has been tried in the past with her. That would be worth exploring in case atrial fibrillation is the cause for her recurrent heart failure episodes and volume overload due to relative under perfusion. We will follow along with you. Thank you for allowing me to participate in the care of your patient. Please feel free to contact me if you have any questions. Time Spent With Patient Time: Total time managing care of this patient today ____ minutes. Procedures Date of Service Date of Service: 08/11/22
[2022-08-11] MEDS: Insulin Lispro 100 UNIT/ML 3 ML VIAL SUBCUT ×3 (12:53→21:24)
[2022-08-11] MEDS: Furosemide 200 MG in 0.9 % Sodium Chloride 80 ML IVCONT (13:03)
--- NOTE | 2022-08-11 13:28 | P.PNIM_ITS ---
Subjective Subjective Date of Service: 08/11/22 Interval History: Breathing subjectively improved. 5 L negative since admission Review of Systems Denies chest pain Admits to shortness of breath at rest Denies nausea vomiting diarrhea Denies fever chills Physical Exam Vital Signs: Vital Signs: Last Vital Signs Temp 96.9 F 08/11/22 11:27 Pulse 99 08/11/22 11:27 Resp 20 08/11/22 11:27 BP 115/59 L 08/11/22 11:27 Pulse Ox 93 08/11/22 11:27 O2 Del Method 08/11/22 11:27 O2 Flow Rate 4 08/11/22 11:27 Oxygen Flow Rate 3 08/10/22 09:54 BMI result Body Mass Index 48.8 Const: Other: Short of breath at rest however no acute distress Resp: Other: Markedly diminished at bases otherwise clear Cardio: Other: Irregularly irregular; no S4; positive S1-S2; no S3 murmurs rubs or gallops GI: Other: Obese positive bowel sounds Extrem: Other: Weepy edema Objective Data Active Medications Acetaminophen (Acetaminophen 325 Mg Tablet) 650 mg PO Q6H PRN PRN Reason: Pain, Mild (Pain Scale 1-3) Albuterol Sulfate (Albuterol Sulfate 90 Mcg 8 Gm Inhaler) 2 puff INHALE Q6H PRN PRN Reason: shortness of breath or wheezing Allopurinol (Allopurinol 100 Mg Tablet) 100 mg PO DAILY [facility] Last Admin: 08/11/22 08:33 Dose: 100 mg Documented By: LATIA Dextrose (Dextrose 50 % 25 Gm/50 Ml Syringe) 25 gm IVPUSH Q15M PRN; Protocol PRN Reason: per Hypoglycemia Standing Ord. Docusate Sodium (Docusate Sodium 100 Mg Capsule) 100 mg PO DAILY PRN PRN Reason: Constipation Docusate Sodium (Docusate Sodium 100 Mg Capsule) 100 mg PO DAILY [facility] Last Admin: 08/11/22 08:34 Dose: 100 mg Documented By: LATIA Empagliflozin (Empagliflozin 10 Mg Tablet) 10 mg PO DAILY [facility] Last Admin: 08/11/22 08:34 Dose: 10 mg Documented By: LATIA Ferrous Sulfate (Ferrous Sulfate 324 Mg Tablet.Dr) 324 mg PO DAILY [facility] Last Admin: 08/11/22 08:33 Dose: 324 mg Documented By: LATIA Fluticasone/Vilanterol (Fluticasone/Vilanterol 200/25 Blst.W.Dev) 1 puff INHALE RDAILY [facility] Last Admin: 08/11/22 07:50 Dose: 1 puff Documented By: ALAN Gabapentin (Gabapentin 300 Mg Capsule) 300 mg PO TID [facility] Last Admin: 08/11/22 08:33 Dose: 300 mg Documented By: LATIA Glucose (Glucose Gel 15 Gm Gel..Gram.) 15 gm PO Q15M PRN; Protocol PRN Reason: per Hypoglycemia Standing Ord. Furosemide 200 mg/ Sodium (Chloride) 100 mls @ 2.5 mls/hr IVCONT .Q24H [facility] Last Admin: 08/11/22 13:03 Dose: 5 mg/hr, 2.5 mls/hr Documented By: LATIA Insulin Glargine (Insulin Glargine,Hum.Rec.Anlog 100 Unit/Ml 10 Ml Vial) 25 unit SUBCUT DAILY [facility] Last Admin: 08/11/22 08:34 Dose: 25 unit Documented By: LATIA Insulin Human Lispro (Insulin Lispro 100 Unit/Ml 3 Ml Vial) 0 unit SUBCUT QIDACHS [facility]; Protocol Last Admin: 08/11/22 12:53 Dose: 4 unit Documented By: LATIA Multivitamins/Vitamin C (Multivitamin Tablet) 1 tab PO DAILY [facility] Last Admin: 08/11/22 08:34 Dose: 1 tab Documented By: LATIA Ondansetron HCl (Ondansetron Hcl 4 Mg/2 Ml Vial) 4 mg IVPUSH Q8H PRN PRN Reason: Nausea and Vomiting Pharmacy Consult (Consult Rx Perform Med Rec) 1 each MISCELLANE ONCE PRN PRN Reason: Consult order Potassium Chloride (Potassium Chloride Er 10 Meq Capsule.Er) 60 meq PO QID [facility] Last Admin: 08/11/22 12:52 Dose: 60 meq Documented By: LATIA Pravastatin Sodium (Pravastatin Sodium 20 Mg Tablet) 20 mg PO BEDTIME [facility] Last Admin: 08/10/22 20:28 Dose: 20 mg Documented By: STEVEN Rivaroxaban (Rivaroxaban 15 Mg Tablet) 15 mg PO DAILY@1800 [facility] Last Admin: 08/10/22 17:15 Dose: 15 mg Documented By: KATYA Sodium Chloride (0.9 % Sodium Chloride Flush 3 Ml Syringe) 3 ml IVFLUSH QSHIFT [facility] Last Admin: 08/11/22 08:35 Dose: 3 ml Documented By: LATIA Spironolactone (Spironolactone 25 Mg Tablet) 12.5 mg PO DAILY [facility]; Protocol Last Admin: 08/11/22 08:34 Dose: 12.5 mg Documented By: LATIA Tiotropium [place] (Tiotropium [place] 18 Mcg Cap.W.Dev) 1 puff INHALE RDAILY [facility] Last Admin: 08/11/22 07:50 Dose: 1 puff Documented By: [facility] Vitamin D (Cholecalciferol (Vitamin D3) 25 Mcg Tablet) 25 mcg PO DAILY [facility] Last Admin: 08/11/22 08:34 Dose: 25 mcg Documented By: LATIA Zinc Sulfate (Zinc Sulfate 220 Mg Capsule) 220 mg PO DAILY [facility] Last Admin: 08/11/22 08:33 Dose: 220 mg Documented By: LATIA Labs 08/10/22 10:48 08/11/22 05:45 Labs: Laboratory Results - last 24 hr 08/10/22 08/10/22 08/11/22 16:03 19:58 05:45 Anion Gap 18 Estim Creat Clear Calc 49.3 Estimated GFR 35 POC Glucose 88 188 H Random Glucose 130 H Calcium 9.0 Magnesium 2.6 08/11/22 08/11/22 07:29 11:32 Anion Gap Estim Creat Clear Calc Estimated GFR POC Glucose 130 H 239 H Random Glucose Calcium Magnesium Microbiology Microbiology Results: Microbiology 08/10/22 10:46 Blood Culture - Preliminary Blood - Venous No growth after 24 hours. Assessment and Plan (1) Acute exacerbation of congestive heart failure: Status: Acute (2) T2DM (type 2 diabetes mellitus): Status: Acute (3) CKD (chronic kidney disease): Status: Acute Plan Pt is a 72-year-old female with a PMH significant for?diastolic HFpEF, pulmonary hypertension, tricuspid valve regurgitation, AFib on Xeralto, COPD, HLD, and insulin-dependent DM2 who presents to the ED with worsening edema and SOB over the past few weeks.?Pt will be admitted to telemtry for treatment of acute CHF exacerbation with aggressive diuresing. 1.Acute CHF exacerbation -insulin drip at 5 mg an hour (-5 L) -Jardiance -continue potassium chloride supplementation.. Increased to 60 mEq q.6 hours Follow lytes, mg, I/O Cardiology consult 2.Insulin-dependent DM2 -acceptable control on current therapies -continue Jardiance -lispro correctional scale 3.HTN -acceptable control -adjust as indicated 4.CKD3 -improved with diuresis -follow renals/divalents Full code Xerelto Patient will require ongoing hospitalization for IV Lasix drip Time Spent With Patient Time: Total time managing care of this patient today ____ minutes. Quality Stroke Does the patient have a stroke diagnosis?: No VTE Prior VTE?: No VTE Risk Level:: Medical - moderate - high VTE Device Contraindication: Treatment Not Indicated VTE Drug Contraindication: N/A - Med Ordered
[2022-08-11 16:07] LABS: Glucose, Whole Blood 213 mg/dL (60-115)
--- NOTE | 2022-08-11 16:33 | MHC.CM.PN ---
PT REPORTS SHE LIVES ALONE AND IS ACTIVE WITH [employer] [employer] [facility] AND [facility] FOR [employer] SHE REPORTS HSE HAS HOME O2, A BIPAP, AND A WALKER SHE SAYS HER SON IS HER HCP SHE IS COVID VAX WITH ONE BOOSTER PCP: RAMOS CONTI SHE REPORT SHE THOUGHT SHE ALSO HAD [place] IF NOT SHE IS INTERESTED IN APPLYING REFERRAL SENT TO [facility] [place] CURRENT DC PLAN IS HOME WITH RESUMPTION OF VNA AND [employer]
[2022-08-11] MEDS: Rivaroxaban 15 MG TABLET PO (17:40)
[2022-08-11 20:49] LABS: Glucose, Whole Blood 202 mg/dL (60-115)
[2022-08-11] MEDS: Acetaminophen 325 MG TABLET 650 MG PO (21:22)
[2022-08-11] MEDS: Pravastatin Sodium 20 MG TABLET PO (21:24)
[2022-08-12] VITALS (17 sets, daily range): BP systolic 67–157; BP diastolic 37–98; PULSE 74–109; RESP 14–20; TEMP 34–37.5; O2SAT 87–98
--- NOTE | 2022-08-12 | ECG_ITS ---
Test Reason : c0 Blood Pressure : / mmHG Vent. Rate : 088 BPM Atrial Rate : 000 BPM P-R Int : 000 ms QRS Dur : 082 ms QT Int : 394 ms P-R-T Axes : 000 -05 040 degrees QTc Int : 476 ms Poor data quality Atrial fibrillation with premature ventricular or aberrantly conducted complexes Low voltage QRS Septal infarct , age undetermined Abnormal ECG When compared with ECG of 10-AUG-2022 10:06, Septal infarct is now Present Referred By: Codey Haines Electronically Signed By:DEISI ROBINS MD
--- NOTE | 2022-08-12 00:02 | PC.NURSE ---
Patient noted to have a 15 beat of vtach, patient assessed and asymptomatic.
[2022-08-12 06:31] LABS: MANUAL DIFF FLAG NO
[2022-08-12 06:51] LABS: Alanine Aminotransferase 16 U/L (0-31); Albumin Level 3.1 g/dL (3.5-5.0); Alkaline Phosphatase 126 U/L (39-117); Anion Gap 15 (12-20); Aspartate Amino Transferase 49 U/L (5-31); Bilirubin Total 1.4 mg/dL (0.0-1.0); Blood Urea Nitrogen 64 mg/dL (9-16); Calcium 8.9 mg/dL (8.4-10.2); Carbon Dioxide 28 mmol/L (22-29); Chloride 98 mmol/L (96-108); Creatinine Clr Calc Pharmacy 53.8; Estimated Glomerular Filt Rate 39; Glucose Fasting 157 mg/dL (60-99); Potassium 3.7 mmol/L (3.3-5.1); Sodium 137 mmol/L (135-145); Total Protein 6.5 g/dL (6.5-8.0)
[2022-08-12 06:52] LABS: Basophils Absolute Auto 0.1 X10*3/uL (0.0-0.2); Basophils Percent Auto 0.6 % (0-2); Eosinophils Absolute Auto 0.2 X10*3/uL (0.0-0.4); Eosinophils Percent Auto 2.4 % (0-4); Hematocrit 35.5 % (37.0-47.0); Hemoglobin 11.2 g/dl (12.0-16.0); Imm Gran Abs Auto 0.04 X10*3/uL (0.00-0.03); Imm Gran Pct Auto 0.5 % (0.0-0.4); Lymphocytes Absolute Auto 0.9 X10*3/uL (1.2-4.9); Lymphocytes Percent Auto 10.9 % (20-40); Mean Corpuscular HGB Conc 31.5 g/dl (31.0-35.0); Mean Corpuscular Hemoglobin 30.6 pg (27.0-33.0); Mean Platelet Volume 9.3 fL (9.4-12.3); Monocytes Absolute Auto 1.1 X10*3/uL (0.1-1.2); Monocytes Percent Auto 12.6 % (2-11); Neutrophils Absolute Auto 6.1 x10*3/uL (2.0-8.3); Platelet Count 208 X10*3/uL (160-400); Red Blood Count 3.66 X10*6/uL (4.20-5.50); Red Cell Distribution Width 18.8 % (11.0-16.0); White Blood Count 8.3 X10*3/uL (4.8-10.8)
[2022-08-12 07:16] LABS: Glucose, Whole Blood 153 mg/dL (60-115)
[2022-08-12] MEDS: Multivitamin TABLET 1 TAB PO (07:49)
[2022-08-12] MEDS: Docusate Sodium 100 MG CAPSULE PO (07:49)
[2022-08-12] MEDS: Ferrous Sulfate 324 MG TABLET.DR PO (07:50)
[2022-08-12] MEDS: Gabapentin 300 MG CAPSULE PO ×2 (07:50→16:29)
[2022-08-12] MEDS: allopurinoL 100 MG TABLET PO (07:50)
[2022-08-12] MEDS: Acetaminophen 325 MG TABLET 650 MG PO ×2 (07:50→16:30)
[2022-08-12] MEDS: Empagliflozin 10 MG TABLET PO (07:51)
[2022-08-12] MEDS: Spironolactone 25 MG TABLET PO (07:51)
[2022-08-12] MEDS: Zinc Sulfate 220 MG CAPSULE PO (07:51)
[2022-08-12] MEDS: Cholecalciferol (Vitamin D3) 25 MCG TABLET PO (07:51)
[2022-08-12] MEDS: 0.9 % Sodium Chloride Flush 3 ML SYRINGE IVFLUSH ×2 (07:52→16:30)
[2022-08-12] MEDS: Insulin Lispro 100 UNIT/ML 3 ML VIAL SUBCUT ×3 (07:52→16:26)
[2022-08-12] MEDS: Insulin Glargine,Hum.rec.anlog 100 UNIT/ML 10 ML VIAL 25 UNIT SUBCUT (07:52)
[2022-08-12] MEDS: Ketorolac Tromethamine 15 MG/ML VIAL IVPUSH (07:58)
[2022-08-12] MEDS: Fluticasone/Vilanterol 200/25 BLST.W.DEV 1 PUFF INHALE (08:24)
--- NOTE | 2022-08-12 10:25 | PM.PNCARD ---
Subjective Subjective Date of Service: 08/12/22 Principal diagnosis: decompensated congestive heart failure, atrial fibrillation. Interval history: Patient remains markedly fluid overloaded. Still very short of breath. Atrial fibrillation borderline elevated heart rate. Review of Systems Constitutional: Reports fatigue and Reports weakness Cardiovascular: Reports Abdominal Distension, Denies chest pain, Denies leg edema, Denies lightheadedness, Denies Loss of Consciousness, Denies palpitations, Reports dyspnea, Reports dyspnea on exertion and Reports orthopnea Respiratory: Reports dyspnea and Reports dyspnea on exertion Musculoskeletal: Reports muscle weakness Reports system reviewed and no additional complaints, except as documented and Reports weakness Psychiatric: Reports no additional psychiatric complaints Endocrine: Reports no additional endocrine complaints, Reports fatigue and Denies palpitations Allergic/Immunologic: Reports no additional allergic/immunologic complaints Physical Exam Vital Signs: Last Vital Signs Temp 96.7 F L 08/12/22 07:25 Pulse 109 H 08/12/22 08:26 Resp 20 08/12/22 08:26 BP 157/70 H 08/12/22 07:25 Pulse Ox 90 L 08/12/22 07:25 O2 Del Method 08/12/22 07:25 O2 Flow Rate 4 08/12/22 07:25 Oxygen Flow Rate 3 08/10/22 09:54 BMI result Body Mass Index 48.8 Const General: cooperative, comfortable and in distress moderate and respiratory Nutritional Appearance: obese Orientation/consciousness: patient oriented x3 Neck Neck: Yes trachea midline, Yes supple and Yes JVD Resp Effort & Inspection: decreased respiratory effort Auscultation: crackles and diminished lung sounds Cardio Jugular venous distension: JVD Rate: tachycardic Rhythm: abnormal rhythm irregularly irregular Heart sounds: S1 normal heart sound present, S2 normal heart sound present, no click, no gallops and Murmur heart sound present systolic GI Inspection: Yes Abdominal wall edema and Yes distended Auscultation: normal bowel sounds Skin General skin exam: no rashes or lesions noted Neuro General: patient oriented x3 and no focal motor deficits Extrem General: No clubbing, No cyanosis and Yes edema ( Significant edema) Objective Labs and Meds 08/12/22 06:03 08/12/22 06:03 Lab results: Laboratory Results - last 24 hr 08/11/22 08/11/22 08/11/22 11:32 15:54 20:14 WBC RBC Hgb Hct MCV MCH MCHC RDW Plt Count MPV Immature Gran % (Auto) Neut % (Auto) Lymph % (Auto) [place] % (Auto) Eos % (Auto) Baso % (Auto) Lymph # (Auto) [place] # (Auto) Eos # (Auto) Baso # (Auto) Abs Immat Gran (auto) Absolute Neuts (auto) Absolute Nucleated RBC Nucleated RBC % (auto) Sodium Potassium Chloride Carbon Dioxide Anion Gap BUN Creatinine Estim Creat Clear Calc Estimated GFR POC Glucose 239 H 213 H 202 H Fasting Glucose Calcium Total Bilirubin AST ALT Alkaline Phosphatase Total Protein Albumin 08/12/22 08/12/22 08/12/22 06:03 06:03 07:04 WBC 8.3 RBC 3.66 L Hgb 11.2 L Hct 35.5 L MCV 97.0 MCH 30.6 MCHC 31.5 RDW 18.8 H Plt Count 208 MPV 9.3 L Immature Gran % (Auto) 0.5 H Neut % (Auto) 73.0 Lymph % (Auto) 10.9 L [place] % (Auto) 12.6 H Eos % (Auto) 2.4 Baso % (Auto) 0.6 Lymph # (Auto) 0.9 L [place] # (Auto) 1.1 Eos # (Auto) 0.2 Baso # (Auto) 0.1 Abs Immat Gran (auto) 0.04 H Absolute Neuts (auto) 6.1 Absolute Nucleated RBC 0.000 Nucleated RBC % (auto) 0.0 Sodium 137 Potassium 3.7 D Chloride 98 Carbon Dioxide 28 Anion Gap 15 BUN 64 H Creatinine 1.33 Estim Creat Clear Calc 53.8 Estimated GFR 39 POC Glucose 153 H Fasting Glucose 157 H Calcium 8.9 Total Bilirubin 1.4 H AST 49 H ALT 16 Alkaline Phosphatase 126 H Total Protein 6.5 Albumin 3.1 L Progress Note: A&P Assessment and plan (1) Acute exacerbation of congestive heart failure: Status: Acute Assessment and Plan: recurrent hospitalization with heart failure preserved ejection fraction in this elderly woman with known prior history of diastolic heart failure with end-stage heart failure syndrome at this point in time. She has poor response to outpatient therapy. This is despite placement of CardioMEMS device which is difficult to monitor in this patient as she is not able to get on her device every day. Despite recommendations outpatient she continues to have fluid overload. She has been told to take extra metolazone in the past when she gains weight but she is has in due to her worry about renal failure. She is currently on diuretic regimen with Lasix drip and responding marginally. Add metolazone 2.5 mg to regimen today. Continue monitor closely renal function as well as electrolytes and replace potassium and magnesium as needed. If she starts having some contraction alkalosis can add Diuril to her regimen. Overall prognosis extremely guarded. Continue Jardiance and spironolactone therapy. Continue better rate control, see below. (2) Chronic atrial fibrillation: Status: Acute Assessment and Plan: Chronic atrial fibrillation this lady with failure to maintain rhythm after being on long-term amiodarone and having recurrent AFib. There is definite connection with her recurrent atrial fibrillation heart failure syndrome however it is unlikely that she will pursue rhythm control approach at this point time will respond to it. Continue rate control as much as possible. add metoprolol 12.5 mg q.6 hours to her regimen and may need digoxin as well as for rate control which will improve cardiac efficiency.Continue full oral anticoagulation with Xarelto. Will continue to follow with you. Time Spent With Patient Time: Total time managing care of this patient today ____ minutes. Progress Note: Quality Stroke Does the patient have a stroke diagnosis?: No Procedures Date of Service Date of Service: 08/12/22
[2022-08-12 11:06] LABS: Glucose, Whole Blood 332 mg/dL (60-115)
--- NOTE | 2022-08-12 11:08 | MHC.CM.PN ---
Per ROUNDS discussion, Patient is not yet medically cleared for dc (IV Lasix); Home/resume services is the goal and CM will continue to follow.
[2022-08-12] MEDS: Furosemide 200 MG in 0.9 % Sodium Chloride 80 ML IVCONT (12:30)
[2022-08-12] MEDS: Metoprolol Tartrate 12.5 MG HALFTAB PO ×2 (12:30→16:29)
--- NOTE | 2022-08-12 14:37 | P.PNIM_ITS ---
Subjective Subjective Date of Service: 08/12/22 Interval History: c/o dyspnea + edema negative 5.7L cumulatively this admission Review of Systems Review of Systems: Yes all other systems are reviewed and are negative Physical Exam Vital Signs: Vital Signs: Last Vital Signs Temp 97.0 F 08/12/22 11:17 Pulse 91 08/12/22 11:17 Resp 20 08/12/22 11:17 BP 97/51 L 08/12/22 11:17 Pulse Ox 90 L 08/12/22 11:17 O2 Del Method 08/12/22 11:17 O2 Flow Rate 4 08/12/22 11:17 Oxygen Flow Rate 3 08/10/22 09:54 BMI result Body Mass Index 48.8 Gen: in no acute distress HEENT: sclera anicteric, moist mucus membranes Neck: supple, JVD present Lungs: bibasilar inspiratory crackles Heart: irregularly irregular Abd: soft, non-tender, non-distended, morbid obesity Ext: 3+ bilateral leg edema Skin: warm/well-perfused Neuro: alert and oriented x3, no focal findings Psych: appropriate affect Objective Data Active Medications Acetaminophen (Acetaminophen 325 Mg Tablet) 650 mg PO Q6H PRN PRN Reason: Pain, Mild (Pain Scale 1-3) Last Admin: 08/12/22 07:50 Dose: 650 mg Documented By: GABRIEL Albuterol Sulfate (Albuterol Sulfate 90 Mcg 8 Gm Inhaler) 2 puff INHALE Q6H PRN PRN Reason: shortness of breath or wheezing Allopurinol (Allopurinol 100 Mg Tablet) 100 mg PO DAILY [facility] Last Admin: 08/12/22 07:50 Dose: 100 mg Documented By: GABRIEL Dextrose (Dextrose 50 % 25 Gm/50 Ml Syringe) 25 gm IVPUSH Q15M PRN; Protocol PRN Reason: per Hypoglycemia Standing Ord. Digoxin (Digoxin 0.125 Mg Tablet) 0.25 mg PO Q6H [facility] Stop: 08/12/22 22:46 Last Admin: 08/12/22 12:44 Dose: Not Given Documented By: GABRIEL Non-Admin Reason: Decreased Blood Pressure Docusate Sodium (Docusate Sodium 100 Mg Capsule) 100 mg PO DAILY PRN PRN Reason: Constipation Docusate Sodium (Docusate Sodium 100 Mg Capsule) 100 mg PO DAILY [facility] Last Admin: 08/12/22 07:49 Dose: 100 mg Documented By: GABRIEL Empagliflozin (Empagliflozin 10 Mg Tablet) 10 mg PO DAILY [facility] Last Admin: 08/12/22 07:51 Dose: 10 mg Documented By: GABRIEL Ferrous Sulfate (Ferrous Sulfate 324 Mg Tablet.) 324 mg PO DAILY [facility] Last Admin: 08/12/22 07:50 Dose: 324 mg Documented By: GABRIEL Gabapentin (Gabapentin 300 Mg Capsule) 300 mg PO TID [facility] Last Admin: 08/12/22 07:50 Dose: 300 mg Documented By: GABRIEL Glucose (Glucose Gel 15 Gm Gel..Gram.) 15 gm PO Q15M PRN; Protocol PRN Reason: per Hypoglycemia Standing Ord. Furosemide 200 mg/ Sodium (Chloride) 100 mls @ 2.5 mls/hr IVCONT .Q24H [facility] Last Admin: 08/12/22 12:30 Dose: 5 mg/hr, 2.5 mls/hr Documented By: GABRIEL Insulin Glargine (Insulin Glargine,Hum.Rec.Anlog 100 Unit/Ml 10 Ml Vial) 25 unit SUBCUT DAILY [facility] Last Admin: 08/12/22 07:52 Dose: 25 unit Documented By: GABRIEL Insulin Human Lispro (Insulin Lispro 100 Unit/Ml 3 Ml Vial) 0 unit SUBCUT QIDACHS [facility]; Protocol Last Admin: 08/12/22 12:29 Dose: 8 unit Documented By: GABRIEL Metolazone (Metolazone 2.5 Mg Tablet) 2.5 mg PO DAILY [facility] Metoprolol Tartrate (Metoprolol Tartrate 12.5 Mg Halftab) 12.5 mg PO Q6H [facility]; Protocol Last Admin: 08/12/22 12:30 Dose: 12.5 mg Documented By: GABRIEL Multivitamins/Vitamin C (Multivitamin Tablet) 1 tab PO DAILY [facility] Last Admin: 08/12/22 07:49 Dose: 1 tab Documented By: GABRIEL Pt Own(Advair 500/ (50mcg)) 1 each INHALE RBID [facility] Last Admin: 08/12/22 11:19 Dose: Not Given Documented By: HO.ULRICC Non-Admin Reason: pt took on own in am Ondansetron HCl (Ondansetron Hcl 4 Mg/2 Ml Vial) 4 mg IVPUSH Q8H PRN PRN Reason: Nausea and Vomiting Pharmacy Consult (Consult Rx Perform Med Rec) 1 each MISCELLANE ONCE PRN PRN Reason: Consult order Potassium Chloride (Potassium Chloride Er 20 Meq Tab.Er.Prt) 60 meq PO QID [facility] Pravastatin Sodium (Pravastatin Sodium 20 Mg Tablet) 20 mg PO BEDTIME [facility] Last Admin: 08/11/22 21:24 Dose: 20 mg Documented By: MEGAN Psyllium Hydrophilic Mucilloid (Psyllium Seed 3.4 Gm Powd.Pack) 3.4 gm PO DAILY [facility] Last Admin: 08/12/22 12:48 Dose: Not Given Documented By: GABRIEL Non-Admin Reason: Med Not Available Rivaroxaban (Rivaroxaban 15 Mg Tablet) 15 mg PO DAILY@1800 [facility] Last Admin: 08/11/22 17:40 Dose: 15 mg Documented By: LATIA Sodium Chloride (0.9 % Sodium Chloride Flush 3 Ml Syringe) 3 ml IVFLUSH QSHIFT [facility] Last Admin: 08/12/22 07:52 Dose: 3 ml Documented By: GABRIEL Spironolactone (Spironolactone 25 Mg Tablet) 25 mg PO DAILY [facility]; Protocol Last Admin: 08/12/22 07:51 Dose: 25 mg Documented By: GABRIEL Tiotropium Welches (Tiotropium Welches 18 Mcg Cap.W.Dev) 1 puff INHALE RDAILY [facility] Last Admin: 08/12/22 08:24 Dose: 1 puff Documented By: KAYLAH Vitamin D (Cholecalciferol (Vitamin D3) 25 Mcg Tablet) 25 mcg PO DAILY [facility] Last Admin: 08/12/22 07:51 Dose: 25 mcg Documented By: GABRIEL Zinc Sulfate (Zinc Sulfate 220 Mg Capsule) 220 mg PO DAILY [facility] Last Admin: 08/12/22 07:51 Dose: 220 mg Documented By: GABRIEL Labs 08/12/22 06:03 08/12/22 06:03 Labs: Laboratory Results - last 24 hr 08/11/22 08/11/22 08/12/22 15:54 20:14 06:03 MCV 97.0 MCH 30.6 MCHC 31.5 RDW 18.8 H Plt Count 208 MPV 9.3 L Immature Gran % (Auto) 0.5 H Neut % (Auto) 73.0 Lymph % (Auto) 10.9 L [place] % (Auto) 12.6 H Eos % (Auto) 2.4 Baso % (Auto) 0.6 Lymph # (Auto) 0.9 L [place] # (Auto) 1.1 Eos # (Auto) 0.2 Baso # (Auto) 0.1 Abs Immat Gran (auto) 0.04 H Absolute Neuts (auto) 6.1 Absolute Nucleated RBC 0.000 Nucleated RBC % (auto) 0.0 Anion Gap Estim Creat Clear Calc Estimated GFR POC Glucose 213 H 202 H Fasting Glucose Calcium Total Bilirubin AST ALT Alkaline Phosphatase Total Protein Albumin 08/12/22 08/12/22 08/12/22 06:03 07:04 10:57 MCV MCH MCHC RDW Plt Count MPV Immature Gran % (Auto) Neut % (Auto) Lymph % (Auto) [place] % (Auto) Eos % (Auto) Baso % (Auto) Lymph # (Auto) [place] # (Auto) Eos # (Auto) Baso # (Auto) Abs Immat Gran (auto) Absolute Neuts (auto) Absolute Nucleated RBC Nucleated RBC % (auto) Anion Gap 15 Estim Creat Clear Calc 53.8 Estimated GFR 39 POC Glucose 153 H 332 H Fasting Glucose 157 H Calcium 8.9 Total Bilirubin 1.4 H AST 49 H ALT 16 Alkaline Phosphatase 126 H Total Protein 6.5 Albumin 3.1 L Microbiology Microbiology Results: Microbiology 08/10/22 11:41 Blood Culture - Preliminary Blood - Venous No growth after 48 hours. 08/10/22 10:46 Blood Culture - Preliminary Blood - Venous No growth after 48 hours. Assessment and Plan (1) Acute exacerbation of congestive heart failure: Status: Acute (2) T2DM (type 2 diabetes mellitus): Status: Acute (3) CKD (chronic kidney disease): Status: Acute Plan d#3 72yo F wtih R-sided HF, diastolic HF, pHTN admitted for ADHF # ADHF - continue furosemide gtt and add metolazone. continue spironolactone. continue empagliflozin. metoprolol as below. on potassium maintenance. Cardioloyg following. dry weight around 235 lb # AF, chronic - continue rivaroxaban - add metoprolol + digoxin for better rate control # chronic hypoxic + hypercapneic resp failure - on home O2, 2L via NC - continue BiPAP at night and with all naps # CKD3 - SCr at baseline; avoid nephrotoxins; recheck electrolytes tomorrow # COPD, not acute exac - continue tiotropium, Advair, prn albuterol # DM2 with hyperglycemia - continue empagliflozin, Lantus, Humalog ? # VTE ppx: rivaroxaban # dispo: anticipate home with VNA once euvolemic In my clinical judgment, the patient requires continued inpatient hospitalization for the following reasons: ADHF requiring IV diuresis Time Spent With Patient Time: Total time managing care of this patient today _40___ minutes. Quality Stroke Does the patient have a stroke diagnosis?: No VTE Prior VTE?: No VTE Risk Level:: Medical - moderate - high VTE Device Contraindication: Treatment Not Indicated VTE Drug Contraindication: N/A - Med Ordered
[2022-08-12 15:34] LABS: Glucose, Whole Blood 216 mg/dL (60-115)
[2022-08-12] MEDS: Digoxin 0.125 MG TABLET 0.25 MG PO (16:27)
[2022-08-12] MEDS: Potassium Chloride ER 20 MEQ TAB.ER.PRT 60 MEQ PO (16:27)
[2022-08-12] MEDS: traMADoL HCL 50 MG TABLET PO (16:28)
[2022-08-12] MEDS: guaiFENesin LA 600 MG TAB.ER.12H 1200 MG PO (16:28)
[2022-08-12] MEDS: metOLazone 2.5 MG TABLET PO (16:29)
[2022-08-12] MEDS: Rivaroxaban 15 MG TABLET PO (16:35)
[2022-08-12 18:46] LABS: Glucose, Whole Blood 194 mg/dL (60-115)
--- NOTE | 2022-08-12 18:52 | PM.EVENT ---
Event Note Date of Service: 08/12/22 Event Note: Rapid response was called around 635pm. the moment i walked to the room blue code was called. CPR was started instantly and 1st epinephrine was given within 2 minute. CPR lasted for total of 6 minutes including intubation. patient returned ROSC and was transferred to ICU. had Blue code called again at 652 in ICU but returned back to [facility]. will be followed by ICU team Time Spent With Patient Time: Total time managing care of this patient today ____ minutes.
[2022-08-12] MEDS: propofoL 1,000 MG/100 ML VIAL 41.19 MG IVCONT ×3 (19:00→23:11)
[2022-08-12] MEDS: Norepinephrine Bitartrate/D5W 8 MG/250 ML PLAST..BAG 12.87 MG IV (19:17)
[2022-08-12 19:21] LABS: VBG Base Excess 7.1 mmol/L; VBG HCO3 31 mmol/L (22-26); VBG pCO2 41 mmHg; VBG pH 7.48 (7.32-7.43); VBG pO2 54 mmHg
[2022-08-12 19:27] LABS: MANUAL DIFF FLAG NO
[2022-08-12 19:31] LABS: Basophils Percent Auto 0.2 % (0-2); Eosinophils Absolute Auto 0.2 X10*3/uL (0.0-0.4); Hematocrit 34.2 % (37.0-47.0); Hemoglobin 10.5 g/dl (12.0-16.0); Imm Gran Abs Auto 0.31 X10*3/uL (0.00-0.03); Imm Gran Pct Auto 2.7 % (0.0-0.4); Lymphocytes Absolute Auto 1.2 X10*3/uL (1.2-4.9); Lymphocytes Percent Auto 10.8 % (20-40); Mean Corpuscular HGB Conc 30.7 g/dl (31.0-35.0); Mean Corpuscular Hemoglobin 29.9 pg (27.0-33.0); Mean Corpuscular Volume 97.4 fL (80.0-98.0); Mean Platelet Volume 8.6 fL (9.4-12.3); Monocytes Percent Auto 8.4 % (2-11); Neutrophils Absolute Auto 8.7 x10*3/uL (2.0-8.3); Neutrophils Percent Auto 75.9 % (45-73); Platelet Count 195 X10*3/uL (160-400); Red Blood Count 3.51 X10*6/uL (4.20-5.50); Red Cell Distribution Width 18.8 % (11.0-16.0); White Blood Count 11.4 X10*3/uL (4.8-10.8)
[2022-08-12 19:44] LABS: Magnesium 2.4 mg/dL (1.6-2.6)
[2022-08-12 19:50] LABS: B Type Natriuretic Peptide 994 pg/mL (<100)
[2022-08-12 19:55] LABS: Alanine Aminotransferase 18 U/L (0-31); Albumin Level 3.1 g/dL (3.5-5.0); Alkaline Phosphatase 134 U/L (39-117); Anion Gap 19 (12-20); Aspartate Amino Transferase 37 U/L (5-31); Bilirubin Total 1.1 mg/dL (0.0-1.0); Blood Urea Nitrogen 71 mg/dL (9-16); Calcium 8.4 mg/dL (8.4-10.2); Carbon Dioxide 27 mmol/L (22-29); Chloride 96 mmol/L (96-108); Creatinine Clr Calc Pharmacy 37.7; Estimated Glomerular Filt Rate 26; Glucose Random 224 mg/dL (60-115); Magnesium 2.3 mg/dL (1.6-2.6); Phosphorus 4.7 mg/dL (2.7-4.5); Potassium 4.8 mmol/L (3.3-5.1); Sodium 137 mmol/L (135-145); Total Protein 6.1 g/dL (6.5-8.0)
[2022-08-12 19:58] LABS: Troponin-I High Sensitivity 61.7 ng/L (<3.5-17.0)
--- NOTE | 2022-08-12 20:00 | PC.NURSE ---
Pt arrived [place] unit 1900[place] [facility] [place] lost pulse for 1 minute after arrival, rosc achieved. See code flowsheet. Intubated on imc - ET tube #7,? 23 cm at lip. Propofol and levophed started per emar - see titration flowsheet. Pt afib on tele, rate 130s. Pt on ACVC settings on vent - see vent assessment. TLC placed to [facility], og tube placed - small amount of dark red output. Protonix gtt started. Copious bloody secretions, mouth care provided. Pt transferred?to turning bed, bath given. Family at bedside and updated by SCARLETT Humphreys.?
[2022-08-12 21:24] LABS: Reflex Lactate? Lactic Acid Added
--- NOTE | 2022-08-12 21:30 | P.CONCC_ITS ---
History of Present Illness Data of Consult Service Date: 08/12/22 Requesting physician: Codey Haines Primary Care Provider: Teri Max MD HPI Reason for consult: Cardio Respiratory Arrest HPI:? 72-year-old female with underlying history of morbid obesity, diastolic heart failure with end-stage heart failure syndrome who has had placement of cardioMEMS device with ongoing issues of fluid overload despite diuresis and adjustment of her medications, her last echo from January of 2022 showed a preserved ejection fraction of 65-70% with moderately increased right ventricul ar cavity size and decreased right ventricular systolic function, abnormal diastolic function; ?trace pulmonic valve regurgitation, trace tricuspid regurgitation, trace mitral valve regurgitation, moderate dilation of the left atrium, mild increased left ventricular wall thickness has atrial fibrillation and has been on Xarelto.? Also has a history of COPD, hyperlipidemia, type 2 diabetes who is insulin dependent. ?Patient had presented to the hospital long 08/10/2022 with complaints of increased shortness of breath and weight gain which had begun soon after she was last discharged on 07/18/2022.? According to the records she had been compliant with her medications and had not been eating significant amount of salt, she had reported 30 lb weight gain since discharge had been noted and it was reported that she could no longer lift her legs into the bed, they had been weeping some clear water and that the right leg was worse than the left. ? At the time of admission her workup had been significant for an H&H of 11.6 and 36.1 respectively as a BUN 71 creatinine of 1.63 1 her baseline is about 1.2- 1.3.? Her last BNP had been around 450 as a baseline however was noted to be up to 755.? Her blood pressure had being somewhat low at 1 100/37 but otherwise maintaining.? Her chest x-ray showed mild pulmonary vascular congestion and given her symptomatology laboratories, the patient had been admitted to the floor for treatment with Lasix drip.? A Cardiology consult with Dr. Vaughn had been obtained who agreed with ongoing diuretics, electrolyte replacement partic ularly potassium, rate control and if needed added digoxin as well as the possibility of adding Diuril. ? Around 18:35 tonight, a rapid response had been called and it is in turned into a code blue.? This reported that the patient had gotten up to the bathroom and became very short of breath nearly collapsing afterwards, her oxygen saturation was reported to be low and the patient?s heart rate slowed down significantly until they could no longer noted and no pulse was detected, code blue was activated and CPR was started immediately, 1st epinephrine had been given within 2 minute and the total event lasted about 6 minutes including intubation and obtaining ROSC. ?While getting into the ICU, the nurse noted the patient had no falls but electrical activity was noted on the monitor, CPR was started again for about 1 minute and ROSC was regained. ?The patient had been intubated by the ER physicians, Versed had been given.? Once in the ICU patient was placed on vasopressors due to low blood pressure and sedation with propofol was ordered.? A chest x-ray done at bedside shows the endotracheal tube about 6-7 cm above the estephanie so this was ordered to be advanced. ? ROS:? UNABLE TO OBTAIN PATIENT INTUBATED ? Past Medical History:? As above ? Past Surgical History:? History of colectomy History of colonoscopy History of hernia repair History of hysteroscopy History of left breast biopsy History of left inguinal hernia repair ? Family history:? Unknown ? Social History: Lives in an apartment, no etoh, is a former smoker. HCP is her son Tino ? CODE STATUS:? Full code ? Allergies:? Oxycodone and Percocet (nausea vomiting) ? Home Medications:? see Med Rec ? PHYSICAL EXAM: VS: ?102/66? , heart rate? 88?? , 18 respirations , 98 O2 sat 100% on mechanical ventilation, temperature . ? VENT SETTINGS : ?AC 18, 450, 10, 100% ? General:? Sedated on a ventilator ? Skin:? Large ecchymotic area noted and the right aspect of the sternum with a tennis ball size hematoma, There is significant bilateral lower extremity edema and way up to the sacrum a 2+ and small bumps that resemble hives however appear to be underlying fluid that has not blistered yet. ? HEENT:? Head is normocephalic, atraumatic, pupils 3mm nonreactive bilaterally..? Neck short and thick, no JVD or lymphadenopathy, no masses. ? Cardiac:? distant and irregular S1-S2, no murmurs rubs or gallops. ? Pulmonary:? Diminished lung sounds bilaterally with a slight amount of coarseness at the bases. ? ? Abdomen:? Protuberant, positive bowel sounds in all 4 quadrants.? Soft ? Musculoskeletal:? No bony abnormalities, on passive range of motion at the major joints there is no cogwheeling or crepitus, edema as above ? Neurologic:? As above otherwise unable to assess ? Vascular:? 2+ pulses upper and lower extremities distally. ?Less than 2nd capillary refill of the finger and toes bilaterally. ? SIGNIFICANT LABORATORY DATA:? White blood cells 11.4, H&H 10.5 and 34.2 respectively, platelets 189.? Sodium 137, potassium 4.8, chloride 96, carbon dioxide 27, BUN 71, creatinine 1.90 from 1.33.? Blood sugar 224, lactic acid 4.0.? Phosphorus 4.7.? Troponin 61.7, BNP 994 (from 755 ) albumin 3.1.? Total protein 6.1.? Magnesium 2.4.? Phosphorus 2.7. ? REVIEW OF IMAGES: ?To my view Chest x-ray obtained in the ICU shows mild pulmonary congestion cardiomegaly, no infiltrates noted, no bony abnormalities.? Endotracheal tube terminates about 6-7 cm above the estephanie, will have them advanced the tube to 26 at the lip. ? EKG REVIEW: ?To my view disease atrial fibrillation with a ventricular rate of 88 beats per minute, poor R-wave progression, no ST elevations, no ST depressions.? QTC 394.? In comparison to EKG from 08/10/2022, no significant changes. ? ASSESSMENT: 1. Status post cardiopulmonary arrest likely due to hypoxia 2. Hypoxic respiratory failure likely due to volume overload in the setting of diastolic right heart failure 3. Acute diastolic right heart failure given the significant edema and elevated BNP 4. Anasarca in the setting of the above and PCMS 5. Morbid obesity and underlying obstructive sleep apnea 6. Reactive lactic acidosis, I do not think the patient is septic 7. Normocytic anemialikely chronic disease now worsen with suspected UGIB 8. Atrial fibrillation with now rate controlled rate was on Xarelto 9. Metabolic alkalosis could be due to excessive diuresis, dehydration, electrolyte imbalance (monitor K) 10. Acute kidney injury likely due to forced diuresis and hypoperfusion 11. Hypoalbuminemia and protein calorie malnutrition 12. Reactive troponin elevation unlikely ACS 13. Hypotension induced by sedative agent (Propofol and fentanyl), centrally depleted from forced diuretics but peripherally wet. 14.UGIB (ricardo marroon blood noted upon OG insertion) LIS 15. Chest wall hematoma likely from CPR (monitor) ? PLAN OF CARE: Patient was already transferred to the ICU, will adjust endotracheal tube advancing it 3 cm for it appears to be about 6-7 cm from the estephanie to my view on the portable x-ray. ?She is slightly alkalotic and her end-tidal CO2 is only in the 20s, will decrease the vent rate from 18 to 14 and will titrate her FiO2 down slowly. ?Even though she appears fluid overloaded and likely requires more diuresis, her renal function has worsened therefore we will await on this, may require Diamox as well. I do not believe she is septic despite the low BP and Lactic acidosis there are reactant to the event and the meds, I do not think the patient requires IVF administration nor will she tolerate it as she is already in CHF. see Cardiology Note from 08/12/22; will order an echo. I will continue with propofol and Levophed, will order albumin, repeat troponin and lactic acid in a couple hours.? A central line will be placed,over the phone ?consent was obtained from the patient's son Tino who is also the healthcare proxy and he was updated about the event and the transfer. Upon placing OG tube and consider high protein feeds in am. Renal consult and dc nephrotoxins (no more toradol). ?GI consult in am and hold Xarelto due to UGIB. Labs in am; however will recheck h/h q4 h due to GIB. Consider US legs although unlikely r/o DVT for I question her medical compliance with meds. ? GI PROPHYLAXIS: IV PPI DVT PROPHYLAXIS: pneumatic stocks ? Critical care time used for critical evaluation of this patient, diagnosis, treatment and coordination of care, review her records and documentation TOTAL CRITICAL CARE TIME?? 90 ?MIN . discussion and coordination with consultants, completely separate from any procedures performed. Patient's care was discussed in detail with Dr. Tran.? He is aware of all the above as well as the plan of care for this patient. ? [facility] Past Medical History Medical History (HFpEF) heart failure with preserved ejection fraction Bradycardia CHF exacerbation CKD (chronic kidney disease) Congestive heart failure Congestive heart failure (CHF) COPD (chronic obstructive pulmonary disease) Diabetes mellitus HLD (hyperlipidemia) HTN (hypertension) senior living (current) use of insulin Morbid obesity Paroxysmal atrial fibrillation Persistent atrial fibrillation Phlebitis of left leg Pulmonary hypertension Right heart failure (secondary to left heart failure) Supplemental oxygen dependent T2DM (type 2 diabetes mellitus) Tricuspid regurgitation Vitamin D deficiency Family History Family History Father No problems noted. Mother No problems noted. Brother No problems noted. Son No problems noted. Other Substance use disorder Surgical History Surgical History History of colectomy (~1983) History of colonoscopy History of hernia repair (~07/2011) History of hysteroscopy (~2007) History of left breast biopsy (~04/09/11) History of left inguinal hernia repair (~01/28/20) Social History Social History Household Members: None Housing: Apartment Do you presently have visiting nurse or other home services: Yes Unable to assess alcohol history related to: Unknown Alcohol intake: former Patient Tobacco Use Status: Former Tobacco user Smoked in Last 30 Days: No e-Cigarette/Vaping Use: Never Used Use of substances other than those prescribed or required for medical reasons: No Currently Displaying Signs/Symptoms of Drug Intoxication Withdrawal: No Have you been hit, kicked, punched, or otherwise hurt by someone within the past year? If so, by whom?: No Do you feel safe in your current relationship?: No Current Relationship Is there a partner from a previous relationship who is making you feel unsafe now?: No Are you made to feel afraid or neglected: No Advance Directives: Yes Advance Directives on File: Yes Advance Directives Date on File: 02/09/21 Do you have thoughts of harming others: None Do you have a plan to hurt others: No Plan Recently lost weight without trying: No How much weight loss: Not applicable Eating poorly because of decreased appetite: No Nutrition screen score: 0 Nutrition Risks: Difficulty swallowing Patient : No service: No Current occupational status: retired Cognitive needs: No Hearing needs: No Vision needs: Yes Meds Allergies Allergy/AdvReac Type Severity Reaction Status Date / Time oxycodone [Percocet] Allergy Unknown nausea and Verified 07/04/22 10:02 vomiting Active Medications: Current Medications Acetaminophen (Acetaminophen 325 Mg Tablet) 650 mg PO Q6H PRN PRN Reason: Pain, Mild (Pain Scale 1-3) Last Admin: 08/12/22 16:30 Dose: 650 mg Dextrose (Dextrose 50 % 25 Gm/50 Ml Syringe) 25 gm IVPUSH Q15M PRN; Protocol PRN Reason: per Hypoglycemia Standing Ord. Glucose (Glucose Gel 15 Gm Gel..Gram.) 15 gm PO Q15M PRN; Protocol PRN Reason: per Hypoglycemia Standing Ord. Fentanyl (Sublimaze/Ns) 1,000 mcg in 100 mls @ 0 mls/hr IVCONT .Q0M [facility]; Prot ocol Norepinephrine Bitartrate (Levophed) 8 mg in 250 mls @ 0 mls/hr IV .Q0M [facility]; Protocol Last Titration: 08/12/22 19:20 Dose: 0.1 mcg/kg/min, 25.74 mls/hr Propofol (Diprivan) 1,000 mg in 100 mls @ 0 mls/hr IVCONT .Q0M [facility]; Protocol Last Admin: 08/12/22 20:53 Dose: 50 mcg/kg/min, 41.19 mls/hr Albumin Human (Kedbumin 25 %) 100 mls @ 100 mls/hr IV Q1H [facility] Stop: 08/12/22 22:59 Pantoprazole Sodium 80 mg/ (Sodium Chloride) 100 mls @ 10 mls/hr IV .Q10H [facility] Insulin Human Lispro (Insulin Lispro 100 Unit/Ml 3 Ml Vial) 0 unit SUBCUT Q6H [facility]; Protocol Nystatin (Nystatin Powder 15 Gm Bottle) 1 appl TOPICAL BID [facility]; Protocol Ondansetron HCl (Ondansetron Hcl 4 Mg/2 Ml Vial) 4 mg IVPUSH Q8H PRN PRN Reason: Nausea and Vomiting Pharmacy Consult (Consult Rx Perform Med Rec) 1 each MISCELLANE ONCE PRN PRN Reason: Consult order Sodium Chloride (0.9 % Sodium Chloride Flush 3 Ml Syringe) [facility] Last Admin: 08/12/22 16:30 Dose: 3 ml Home Medications Medication Instructions Recorded Confirmed Last Taken Type cholecalciferol (vitamin D3) 25 25 mcg PO DAILY 04/24/20 08/10/22 08/10/22 09:00 History mcg (1,000 unit) capsule vitamin B complex 1 tab PO DAILY 04/24/20 08/10/22 08/10/22 09:00 History zinc acetate 50 mg (zinc) capsule 50 mg PO DAILY 04/24/20 08/10/22 08/09/22 History multivitamin 1 tab PO DAILY 06/13/20 08/10/22 08/10/22 09:00 History ferrous sulfate 325 mg (65 mg 325 mg PO DAILY 09/14/20 08/10/22 08/10/22 09:00 History iron) tablet (Feosol) docusate sodium 100 mg capsule 100 mg PO DAILY 05/31/21 08/10/22 08/10/22 09:00 History (Colace) allopurinol 100 mg tablet 100 mg PO DAILY 09/24/21 08/10/22 08/10/22 09:00 History dulaglutide 4.5 mg/0.5 mL 4.5 mg subcut TU@0900 04/04/22 08/10/22 08/06/22 History subcutaneous pen injector (Trulicity) insulin aspart U-100 100 unit/mL 4 - 12 unit subcut TIDAC 06/05/22 08/10/22 08/10/22 09:00 History (3 mL) subcutaneous pen (Novolog FlexPen U-100 Insulin aspart) rivaroxaban 15 mg tablet (Xarelto) 15 mg PO DAILY@1800 08/10/22 08/10/22 08/09/22 History spironolactone 25 mg tablet 12.5 mg PO DAILY 08/10/22 08/10/22 08/10/22 09:00 History Physical Exam Vital Signs: Vital Signs: Last Vital Signs Temp 99.5 F 08/12/22 19:05 Pulse 82 08/12/22 22:00 Resp 15 08/12/22 22:00 BP 95/63 08/12/22 22:00 Pulse Ox 93 08/12/22 22:00 O2 Del Method 08/12/22 22:00 O2 Flow Rate 4 08/12/22 11:17 FiO2 80 08/12/22 22:00 Oxygen Flow Rate 3 08/10/22 09:54 BMI result Body Mass Index 48.8 Results Labs 08/12/22 19:19 08/12/22 19:19 Labs: Short CBC 08/12/22 08/12/22 Range/Units 06:03 19:19 WBC 8.3 11.4 H (4.8-10.8) X10*3/uL Hgb 11.2 L 10.5 L (12.0-16.0) g/dl Hct 35.5 L 34.2 L (37.0-47.0) % Plt Count 208 195 (160-400) X10*3/uL BMP 08/12/22 08/12/22 06:03 19:19 Sodium 137 137 Potassium 3.7 D 4.8 D Chloride 98 96 Carbon Dioxide 28 27 BUN 64 H 71 H Creatinine 1.33 1.90 H Calcium 8.9 8.4 Liver Function 08/12/22 08/12/22 Range/Units 06:03 19:19 Total Bilirubin 1.4 H 1.1 H (0.0-1.0) mg/dL AST 49 H 37 H (5-31) U/L ALT 16 18 (0-31) U/L Alkaline Phosphatase 126 H 134 H (39-117) U/L Albumin 3.1 L 3.1 L (3.5-5.0) g/dL Microbiology Microbiology Results: Microbiology 08/10/22 11:41 Blood - Venous Blood Culture - Preliminary No growth after 48 hours. 08/10/22 10:46 Blood - Venous Blood Culture - Preliminary No growth after 48 hours. Assessment and Plan Time Spent With Patient Time: Total time managing care of this patient today ____ minutes.
--- NOTE | 2022-08-12 21:52 | P.PCNCC_ITS ---
Procedures Date of Service Date of Service: 08/12/22 Central Line Placement Left IJ: Central Line Comments: The left neck was widely prepped and draped in full sterile fashion.? Under US? guidance, the left IJ vein was cannulated on the 1st pass of the 18 g thin wall needle, with return of dark, nonpulsatile blood. ? The wire was threaded without incident.? The 16 cm x 7 Telugu triple-lumen CVC was advanced into the vein up to the hub via the Seldinger technique without incident.? There was good blood return x3.? The catheter was sutured x3 and a Biopatch and dry sterile dressing were applied. Postop chest x-ray showed the line in good position with no pneumothorax.? The patient tolerated the procedure well with no complications. Consent for Procedure: Emergent-no informed consent obtained Time out performed: Yes Sterile Technique Used: Yes Patient placed on monitor/pulse ox: Yes prep: mask, gown and gloves Central line prep: Chlorhexidine scrub and sterile drapes applied Ultrasound used for placement: Yes Central line lumen inserted: triple Post procedure: sutured in place, good blood return, all ports aspirated, flushed, capped and sterile dressing applied Post procedure x-ray: tip of catheter in good position and no pneumothorax seen Patient tolerated procedure: well and no complications Complications: none
[2022-08-12 22:39] LABS: Troponin-I High Sensitivity 138.8 ng/L (<3.5-17.0)
[2022-08-12 22:50] LABS: ~Lactic Acid-LAB USE ONLY 0.9 mmol/L (0.5-2.0)
[2022-08-12] MEDS: Pantoprazole Sodium 40 MG/10 ML VIAL 80 MG IVPUSH (23:15)
[2022-08-12] MEDS: Pantoprazole Sodium 80 MG in 0.9 % Sodium Chloride 80 ML 10 MG IV (23:16)
[2022-08-12] MEDS: Albumin Human 25 % 100 ML IV ×2 (23:16→23:51)
[2022-08-12 23:40] LABS: Glucose, Whole Blood 207 mg/dL (60-115)
[2022-08-13] VITALS (36 sets, daily range): BP systolic 81–114; BP diastolic 47–76; PULSE 77–121; RESP 13–26; TEMP 34–36.9; O2SAT 89–100; BMI 48.8
[2022-08-13] MEDS: Insulin Lispro 100 UNIT/ML 3 ML VIAL SUBCUT ×4 (00:24→18:06)
[2022-08-13] MEDS: 0.9 % Sodium Chloride Flush 3 ML SYRINGE IVFLUSH ×4 (00:25→23:58)
[2022-08-13 00:29] LABS: Hematocrit 30.4 % (37.0-47.0); Hemoglobin 9.6 g/dl (12.0-16.0); Mean Corpuscular HGB Conc 31.6 g/dl (31.0-35.0); Mean Corpuscular Hemoglobin 30.4 pg (27.0-33.0); Mean Corpuscular Volume 96.2 fL (80.0-98.0); Mean Platelet Volume 8.6 fL (9.4-12.3); Platelet Count 189 X10*3/uL (160-400); Red Blood Count 3.16 X10*6/uL (4.20-5.50); Red Cell Distribution Width 18.4 % (11.0-16.0); White Blood Count 18.7 X10*3/uL (4.8-10.8)
[2022-08-13 00:49] LABS: Anion Gap 14 (12-20); Blood Urea Nitrogen 71 mg/dL (9-16); Calcium 8.7 mg/dL (8.4-10.2); Carbon Dioxide 32 mmol/L (22-29); Chloride 95 mmol/L (96-108); Creatinine Clr Calc Pharmacy 41.1; Estimated Glomerular Filt Rate 29; Glucose Random 205 mg/dL (60-115); Sodium 137 mmol/L (135-145)
[2022-08-13 00:54] LABS: Venous Blood Gas Refer to POC result
[2022-08-13] MEDS: propofoL 1,000 MG/100 ML VIAL 24.71 MG IVCONT ×7 (02:27→23:56)
[2022-08-13] MEDS: Norepinephrine Bitartrate/D5W 8 MG/250 ML PLAST..BAG 20.6 MG IV (04:05)
[2022-08-13 05:14] LABS: VBG Base Excess 18.3 mmol/L; VBG HCO3 44 mmol/L (22-26); VBG pCO2 63 mmHg; VBG pH 7.45 (7.32-7.43); VBG pO2 54 mmHg
[2022-08-13 05:19] LABS: MANUAL DIFF FLAG NO
[2022-08-13 05:21] LABS: Venous Blood Gas Refer to POC result
[2022-08-13 05:26] LABS: Basophils Percent Auto 0.3 % (0-2); Eosinophils Absolute Auto 0.3 X10*3/uL (0.0-0.4); Eosinophils Percent Auto 2.1 % (0-4); Hematocrit 28.6 % (37.0-47.0); Hemoglobin 8.9 g/dl (12.0-16.0); Imm Gran Abs Auto 0.07 X10*3/uL (0.00-0.03); Imm Gran Pct Auto 0.6 % (0.0-0.4); Lymphocytes Absolute Auto 1.2 X10*3/uL (1.2-4.9); Lymphocytes Percent Auto 9.6 % (20-40); Mean Corpuscular HGB Conc 31.1 g/dl (31.0-35.0); Mean Corpuscular Hemoglobin 30.3 pg (27.0-33.0); Mean Corpuscular Volume 97.3 fL (80.0-98.0); Mean Platelet Volume 8.7 fL (9.4-12.3); Monocytes Absolute Auto 1.2 X10*3/uL (0.1-1.2); Monocytes Percent Auto 9.5 % (2-11); Neutrophils Absolute Auto 9.7 x10*3/uL (2.0-8.3); Neutrophils Percent Auto 77.9 % (45-73); Platelet Count 183 X10*3/uL (160-400); Red Blood Count 2.94 X10*6/uL (4.20-5.50); Red Cell Distribution Width 18.5 % (11.0-16.0); White Blood Count 12.5 X10*3/uL (4.8-10.8)
[2022-08-13 05:34] LABS: Lactic Acid 0.9 mmol/L (0.5-2.0)
[2022-08-13 05:39] LABS: Alanine Aminotransferase 16 U/L (0-31); Albumin Level 3.1 g/dL (3.5-5.0); Alkaline Phosphatase 94 U/L (39-117); Anion Gap 13 (12-20); Aspartate Amino Transferase 32 U/L (5-31); Bilirubin Total 1.2 mg/dL (0.0-1.0); Blood Urea Nitrogen 71 mg/dL (9-16); Calcium 8.7 mg/dL (8.4-10.2); Carbon Dioxide 33 mmol/L (22-29); Chloride 96 mmol/L (96-108); Creatinine Clr Calc Pharmacy 42.8; Estimated Glomerular Filt Rate 30; Glucose Random 186 mg/dL (60-115); Magnesium 2.4 mg/dL (1.6-2.6); Phosphorus 4.1 mg/dL (2.7-4.5); Potassium 3.8 mmol/L (3.3-5.1); Sodium 138 mmol/L (135-145); Total Protein 5.5 g/dL (6.5-8.0)
[2022-08-13 05:43] LABS: B Type Natriuretic Peptide 745 pg/mL (<100)
[2022-08-13 05:45] LABS: Troponin-I High Sensitivity 157.6 ng/L (<3.5-17.0)
[2022-08-13] MEDS: Albumin Human 25 % 100 ML IV ×2 (06:45→07:34)
--- NOTE | 2022-08-13 07:00 | CA_ITS ---
Transthoracic Echocardiogram Patient (Last, First, Middle): Ragini Little, Gender: Female Date of : 1950 Age: 72 Procedure Date: 08/13/2022 Procedure Type: Transthoracic Echocardiogram Location: ICU Height: 167.64 cm Weight: 136.99 kg BSA: 2.38 m2 Heart Rate: 91 bpm BP: 111 / 59 mmHg Adzing And Boring Machine Helper: SB Referring MD: Petr PANTOJA Gatekeeper: Richi Duran MD Symptoms: CHF Study Quality: Poor w contrast ECG Rhythm: Atrial Fibrillation Conclusions: - Technically limited study Findings Procedure Information Contrast agent, definity, is being given per protocol without apparent complications. The quality of the study was despite the use of contrast and endocardial definition remains poor. The study quality is limited by patients body habitus, limitations of a portable exam, and the presence of a ventilator. Left Ventricle The left ventricle was not well visualized. Right Ventricle The right ventricle was not well visualized. Tricuspid Valve The tricuspid valve was not well visualized. Venous The inferior vena cava was not well visualized. Pericardium/Pleural The pericardium was not well visualized. Measurements 2D Linear Measurements LA Diam: 4.30 2.7-3.8/3.0-4.0 cm LAIDs Index: 1.81 1.5-2.3 cm/m2 LVOT Diam: 2.20 3.0+(-)1.3 cm Mitral Valve MV Pk E: 1.03 Aortic Valve AoV Pk Felix: 1.15 AoV Pk Grad: 5.00 DAVID: 2.67 LVOT LVOT Pk Felix: 0.83 LVOT Mn Felix: 0.58 LVOT VTI: 0.14 LVOT Pk Grad: 3.00 LVOT Mn Grad: 2.00 LVOT Diam: 2.20 LVOT Area: 3.80 Diastolic Function MV Pk E: 1.03 Tricuspid Valve TR Pk Felix: 2.30 TR Pk Grad: 21.00 Great Vessels Aorta Sinus of Valsalva: 3.50 2.0-3.5 cm Ao Asc: 4.30 2.1-3.4 cm Pulmonary Valve PV Pk Felix: 0.99 Peak PV Grad: 4.00 Updated in Other Vendor System with Status of Final Richi Duran MD electronically signed on 08/13/2022 12:07:38 PM with status of Final
[2022-08-13] MEDS: Nystatin Powder 15 GM BOTTLE 1 APPL TOPICAL ×2 (07:41→20:48)
[2022-08-13] MEDS: Pantoprazole Sodium 80 MG in 0.9 % Sodium Chloride 80 ML 10 MG IV ×2 (08:15→18:12)
[2022-08-13 09:23] LABS: Hematocrit 27.4 % (37.0-47.0); Hemoglobin 8.7 g/dl (12.0-16.0)
--- NOTE | 2022-08-13 09:47 | MHC.CM.PN ---
Pt is presently in ICU on ventilatory support following CPR x 2. Original d/c plan was for a return to home w/family, Bipap/O2 and VNA ([facility]) however, this may depend on pt's ability to vent wean and regain prior level of functioning. CM to follow. HCP in chart.
--- NOTE | 2022-08-13 10:23 | MHC.CLN ---
RE: CONSULT PT IS INTUBATED AND SEDATED DISCUSSED AT ROUNDS WITH MD IF TF NEEDED; RECOMMEND PROMOTE AT MAX GOAL RATE 30ML/HR TO PROVIDE 720KCALS (1372KCALS WITH SEDATION; 23KCALS/KG BASED ON IBW), 45G PROTEIN (.76G/KG), 604ML FREE WATER FROM FORMULA MONITOR TOLERANCE, RESIDUALS AND LYTES SEE ALSO FULL CLINICAL NUTRITION ASSESSMENT
--- NOTE | 2022-08-13 10:30 | P.PNCA_ITS ---
Subjective Subjective Date of Service: 08/13/22 Principal diagnosis: decompensated congestive heart failure, atrial fibrillation. Interval history: patient had a cardiac arrest yesterday reported as asystole related to hypoxemic respiratory failure. Patient was given epinephrine with quick return to spontaneous circulation and was intubated on telemetry and brought to Intensive Care Unit. Currently on low-dose Levophed as she is being sedated with propofol. She is currently not on diuretic therapy. Rising creatinine noted. Patient has been putting about 50-100cc per hour of urine output. remains in atrial fibrillation with controlled ventricular response. Review of Systems Review of Systems Yes unobtainable due to endotracheal tube Physical Exam Vital Signs: Last Vital Signs Temp 95.9 F L 08/13/22 10:00 Pulse 96 08/13/22 10:00 Resp 20 08/13/22 10:00 BP 102/58 L 08/13/22 10:00 Pulse Ox 93 08/13/22 10:00 O2 Del Method 08/13/22 10:00 O2 Flow Rate 4 08/12/22 11:17 FiO2 50 08/13/22 10:00 Oxygen Flow Rate 3 08/10/22 09:54 BMI result Body Mass Index 48.8 Neck Neck: Yes trachea midline, Yes supple and Yes JVD Resp Effort & Inspection: normal respiratory effort Auscultation: clear to auscultation bilaterally Cardio Jugular venous distension: JVD Rhythm: abnormal rhythm irregularly irregular Heart sounds: S1 normal heart sound present and S2 normal heart sound present GI Inspection: Yes Abdominal wall edema Auscultation: normal bowel sounds Extrem General: No clubbing, No cyanosis and Yes edema Objective Labs and Meds 08/13/22 08:56 08/13/22 04:50 Lab results: Laboratory Results - last 24 hr 08/12/22 08/12/22 08/12/22 10:57 15:28 18:40 WBC RBC Hgb Hct MCV MCH MCHC RDW Plt Count MPV Immature Gran % (Auto) Neut % (Auto) Lymph % (Auto) Becker % (Auto) Eos % (Auto) Baso % (Auto) Lymph # (Auto) Becker # (Auto) Eos # (Auto) Baso # (Auto) Abs Immat Gran (auto) Absolute Neuts (auto) Absolute Nucleated RBC Nucleated RBC % (auto) VBG pH VBG pCO2 VBG pO2 VBG HCO3 VBG O2 Saturation VBG Base Excess Sodium Potassium Chloride Carbon Dioxide Anion Gap BUN Creatinine Estim Creat Clear Calc Estimated GFR POC Glucose 332 H 216 H 194 H Random Glucose Lactic Acid Lactic Acid F/U @ 2Hr Calcium Phosphorus Magnesium Total Bilirubin AST ALT Alkaline Phosphatase Troponin I High Sens B-Natriuretic Peptide Total Protein Albumin 08/12/22 08/12/22 08/12/22 19:14 19:19 19:19 WBC 11.4 H RBC 3.51 L Hgb 10.5 L Hct 34.2 L MCV 97.4 MCH 29.9 MCHC 30.7 L RDW 18.8 H Plt Count 195 MPV 8.6 L Immature Gran % (Auto) 2.7 H Neut % (Auto) 75.9 H Lymph % (Auto) 10.8 L Becker % (Auto) 8.4 Eos % (Auto) 2.0 Baso % (Auto) 0.2 Lymph # (Auto) 1.2 Becker # (Auto) 1.0 Eos # (Auto) 0.2 Baso # (Auto) 0.0 Abs Immat Gran (auto) 0.31 H Absolute Neuts (auto) 8.7 H Absolute Nucleated RBC 0.000 Nucleated RBC % (auto) 0.0 VBG pH 7.48 H VBG pCO2 41 VBG pO2 54 VBG HCO3 31 H VBG O2 Saturation 82.0 VBG Base Excess 7.1 Sodium 137 Potassium 4.8 D Chloride 96 Carbon Dioxide 27 Anion Gap 19 BUN 71 H Creatinine 1.90 H Estim Creat Clear Calc 37.7 Estimated GFR 26 POC Glucose Random Glucose 224 H Lactic Acid Lactic Acid F/U @ 2Hr Calcium 8.4 Phosphorus 4.7 H Magnesium 2.3 Total Bilirubin 1.1 H AST 37 H ALT 18 Alkaline Phosphatase 134 H Troponin I High Sens B-Natriuretic Peptide Total Protein 6.1 L Albumin 3.1 L 08/12/22 08/12/22 08/12/22 19:19 19:19 19:19 WBC RBC Hgb Hct MCV MCH MCHC RDW Plt Count MPV Immature Gran % (Auto) Neut % (Auto) Lymph % (Auto) Becker % (Auto) Eos % (Auto) Baso % (Auto) Lymph # (Auto) Becker # (Auto) Eos # (Auto) Baso # (Auto) Abs Immat Gran (auto) Absolute Neuts (auto) Absolute Nucleated RBC Nucleated RBC % (auto) VBG pH VBG pCO2 VBG pO2 VBG HCO3 VBG O2 Saturation VBG Base Excess Sodium Potassium Chloride Carbon Dioxide Anion Gap BUN Creatinine Estim Creat Clear Calc Estimated GFR POC Glucose Random Glucose Lactic Acid 4.0 H* Lactic Acid F/U @ 2Hr Calcium Phosphorus Magnesium 2.4 Total Bilirubin AST ALT Alkaline Phosphatase Troponin I High Sens 61.7 H* D B-Natriuretic Peptide Total Protein Albumin 08/12/22 08/12/22 08/12/22 19:19 21:57 22:30 WBC RBC Hgb Hct MCV MCH MCHC RDW Plt Count MPV Immature Gran % (Auto) Neut % (Auto) Lymph % (Auto) Becker % (Auto) Eos % (Auto) Baso % (Auto) Lymph # (Auto) Becker # (Auto) Eos # (Auto) Baso # (Auto) Abs Immat Gran (auto) Absolute Neuts (auto) Absolute Nucleated RBC Nucleated RBC % (auto) VBG pH VBG pCO2 VBG pO2 VBG HCO3 VBG O2 Saturation VBG Base Excess Sodium Potassium Chloride Carbon Dioxide Anion Gap BUN Creatinine Estim Creat Clear Calc Estimated GFR POC Glucose Random Glucose Lactic Acid Lactic Acid F/U @ 2Hr 0.9 Calcium Phosphorus Magnesium Total Bilirubin AST ALT Alkaline Phosphatase Troponin I High Sens 138.8 H* D B-Natriuretic Peptide 994 H Total Protein Albumin 08/12/22 08/13/22 08/13/22 23:36 00:11 00:11 WBC 18.7 H RBC 3.16 L Hgb 9.6 L Hct 30.4 L MCV 96.2 MCH 30.4 MCHC 31.6 RDW 18.4 H Plt Count 189 MPV 8.6 L Immature Gran % (Auto) Neut % (Auto) Lymph % (Auto) Becker % (Auto) Eos % (Auto) Baso % (Auto) Lymph # (Auto) Becker # (Auto) Eos # (Auto) Baso # (Auto) Abs Immat Gran (auto) Absolute Neuts (auto) Absolute Nucleated RBC 0.000 Nucleated RBC % (auto) 0.0 VBG pH VBG pCO2 VBG pO2 VBG HCO3 VBG O2 Saturation VBG Base Excess Sodium 137 Potassium 4.0 Chloride 95 L Carbon Dioxide 32 H Anion Gap 14 BUN 71 H Creatinine 1.74 H Estim Creat Clear Calc 41.1 Estimated GFR 29 POC Glucose 207 H Random Glucose 205 H Lactic Acid Lactic Acid F/U @ 2Hr Calcium 8.7 Phosphorus Magnesium Total Bilirubin AST ALT Alkaline Phosphatase Troponin I High Sens B-Natriuretic Peptide Total Protein Albumin 08/13/22 08/13/22 08/13/22 04:50 04:50 04:50 WBC RBC Hgb Hct MCV MCH MCHC RDW Plt Count MPV Immature Gran % (Auto) Neut % (Auto) Lymph % (Auto) Becker % (Auto) Eos % (Auto) Baso % (Auto) Lymph # (Auto) Becker # (Auto) Eos # (Auto) Baso # (Auto) Abs Immat Gran (auto) Absolute Neuts (auto) Absolute Nucleated RBC Nucleated RBC % (auto) VBG pH VBG pCO2 VBG pO2 VBG HCO3 VBG O2 Saturation VBG Base Excess Sodium 138 Potassium 3.8 Chloride 96 Carbon Dioxide 33 H Anion Gap 13 BUN 71 H Creatinine 1.67 H Estim Creat Clear Calc 42.8 Estimated GFR 30 POC Glucose Random Glucose 186 H Lactic Acid Lactic Acid F/U @ 2Hr Calcium 8.7 Phosphorus 4.1 Magnesium 2.4 Total Bilirubin 1.2 H AST 32 H ALT 16 Alkaline Phosphatase 94 Troponin I High Sens 157.6 H* B-Natriuretic Peptide 745 H Total Protein 5.5 L Albumin 3.1 L 08/13/22 08/13/22 08/13/22 04:50 04:50 05:07 WBC 12.5 H RBC 2.94 L Hgb 8.9 L Hct 28.6 L MCV 97.3 MCH 30.3 MCHC 31.1 RDW 18.5 H Plt Count 183 MPV 8.7 L Immature Gran % (Auto) 0.6 H Neut % (Auto) 77.9 H Lymph % (Auto) 9.6 L Becker % (Auto) 9.5 Eos % (Auto) 2.1 Baso % (Auto) 0.3 Lymph # (Auto) 1.2 Becker # (Auto) 1.2 Eos # (Auto) 0.3 Baso # (Auto) 0.0 Abs Immat Gran (auto) 0.07 H Absolute Neuts (auto) 9.7 H Absolute Nucleated RBC 0.000 Nucleated RBC % (auto) 0.0 VBG pH 7.45 H VBG pCO2 63 VBG pO2 54 VBG HCO3 44 H VBG O2 Saturation 82.0 VBG Base Excess 18.3 Sodium Potassium Chloride Carbon Dioxide Anion Gap BUN Creatinine Estim Creat Clear Calc Estimated GFR POC Glucose Random Glucose Lactic Acid 0.9 Lactic Acid F/U @ 2Hr Calcium Phosphorus Magnesium Total Bilirubin AST ALT Alkaline Phosphatase Troponin I High Sens B-Natriuretic Peptide Total Protein Albumin 08/13/22 08:56 WBC RBC Hgb 8.7 L Hct 27.4 L MCV MCH MCHC RDW Plt Count MPV Immature Gran % (Auto) Neut % (Auto) Lymph % (Auto) Becker % (Auto) Eos % (Auto) Baso % (Auto) Lymph # (Auto) Becker # (Auto) Eos # (Auto) Baso # (Auto) Abs Immat Gran (auto) Absolute Neuts (auto) Absolute Nucleated RBC Nucleated RBC % (auto) VBG pH VBG pCO2 VBG pO2 VBG HCO3 VBG O2 Saturation VBG Base Excess Sodium Potassium Chloride Carbon Dioxide Anion Gap BUN Creatinine Estim Creat Clear Calc Estimated GFR POC Glucose Random Glucose Lactic Acid Lactic Acid F/U @ 2Hr Calcium Phosphorus Magnesium Total Bilirubin AST ALT Alkaline Phosphatase Troponin I High Sens B-Natriuretic Peptide Total Protein Albumin Imaging Radiologist's impression: Impressions Chest X-Ray 08/12/22 19:15 IMPRESSION: 1. Cardiomegaly with mild pulmonary vascular congestion. 2. New endotracheal tube tip is 6.4 cm above the estephanie. Chest X-Ray 08/12/22 21:50 IMPRESSION: Tubes and lines as described. New left IJ central venous catheter tip projects along the lateral aspect of the superior vena cava. No pneumothorax. Tiny effusions and central vascular prominence but no overt edema. Progress Note: A&P Assessment and plan (1) Acute exacerbation of congestive heart failure: Status: Acute Assessment and Plan: patient admitted with acute heart failure with known prior significant diastolic heart failure call pulmonary hypertension as well as RV enlargement and right heart failure syndrome as well. Patient remained significantly fluid overloaded. Noted rising creatinine most likely due to renal hypoperfusion from cardiac arrest and possibly due to hypoxemia. She is putting out urine but I think she will require more diuretic effort with Lasix / Bumex drip. Continue supportive care. Overall long-term prognosis is still very guarded given her progressive heart failure syndrome And recurrent hospitalization. Continue Ja rdiance and spironolactone for now. (2) Chronic atrial fibrillation: Status: Acute Assessment and Plan: Chronic atrial fibrillation has failed rhythm control approach despite being on amiodarone for a long time. Continue to pursue rate control approach at this point time with current therapy. (3) Cardiac arrest: Status: Acute Assessment and Plan: Asystolic cardiac arrest, most likely related to significant hypoxemia and heart failure. She did not have any significant ventricular arrhythmias. Responded very quickly to epinephrine. Continue supportive care for now. C ontinue to manage hypoxemia aggressively. Overall prognosis remains guarded. Will continue to follow with you Time Spent With Patient Time: Total time managing care of this patient today ____ minutes. Progress Note: Quality Stroke Does the patient have a stroke diagnosis?: No Procedures Date of Service Date of Service: 08/13/22
--- NOTE | 2022-08-13 10:41 | P.PNCC_ITS ---
Subjective Subjective Date of Service: 08/13/22 Interval History: 72-year-old lady with underlying history of morbid obesity, AFib, multiple admissions for exacerbation of underlying chronic diastolic congestive heart failure secondary to poor compliance with ambulatory diuretic regimen, COPD, diabetes mellitus admitted on 08/10/2022 with dyspnea and acute hypoxic respiratory failure secondary to exacerbation of underlying chronic diastolic congestive heart failure with retainingof approximately 30 lb of water weight. Patient was admitted to general medical [facility] and started on IV diuresis with some improvement. Hospital course significant for episode of profound hypoxemia on 08/12/2022 with ambulation resulting in bradycardia and asystolic cardiac arrest with CPR started immediately and return of spontaneous circulation achieved after 6 minutes of CPR. Patient was intubated during the CPR. Patient has sustained 2nd and brief cardiac arrest up to 1 minute while being transp orted to the intensive care unit, also with successful resuscitation. No events overnight. Critical Care Time (minutes): 60 Physical Exam Vital Signs: Vital Signs: Last Vital Signs Temp 95.9 F L 08/13/22 10:00 Pulse 96 08/13/22 10:00 Resp 20 08/13/22 10:00 BP 102/58 L 08/13/22 10:00 Pulse Ox 93 08/13/22 10:00 O2 Del Method 08/13/22 10:00 O2 Flow Rate 4 08/12/22 11:17 FiO2 50 08/13/22 10:00 Oxygen Flow Rate 3 08/10/22 09:54 BMI result Body Mass Index 48.8 Const: General: no acute distress and other (Sedated on the vent) Nutritional Appearance: obese and Edematous Eyes: Sclerae: sclerae normal Neck: Neck: Yes no lymphadenopathy, Yes trachea midline and Yes supple Resp: Auscultation: crackles (Diffuse bilateral) Cardio: Rate: regular rate Rhythm: regular rhythm Heart sounds: no gallops, no murmurs and no rubs GI: Palpation (GI): Soft to palpation and Other GI palpation findings present ( Nontender) Auscultation: normal bowel sounds Extrem: General: No clubbing, No cyanosis and Yes edema (2+ bilateral) Objective Data Labs 08/13/22 08:56 08/13/22 04:50 Labs: Laboratory Results - last 24 hr 08/12/22 08/12/22 08/12/22 10:57 15:28 18:40 WBC RBC Hgb Hct MCV MCH MCHC RDW Plt Count MPV Immature Gran % (Auto) Neut % (Auto) Lymph % (Auto) Mclennan % (Auto) Eos % (Auto) Baso % (Auto) Lymph # (Auto) Mclennan # (Auto) Eos # (Auto) Baso # (Auto) Abs Immat Gran (auto) Absolute Neuts (auto) Absolute Nucleated RBC Nucleated RBC % (auto) VBG pH VBG pCO2 VBG pO2 VBG HCO3 VBG O2 Saturation VBG Base Excess Sodium Potassium Chloride Carbon Dioxide Anion Gap BUN Creatinine Estim Creat Clear Calc Estimated GFR POC Glucose 332 H 216 H 194 H Random Glucose Lactic Acid Lactic Acid F/U @ 2Hr Calcium Phosphorus Magnesium Total Bilirubin AST ALT Alkaline Phosphatase Troponin I High Sens B-Natriuretic Peptide Total Protein Albumin 08/12/22 08/12/22 08/12/22 19:14 19:19 19:19 WBC 11.4 H RBC 3.51 L Hgb 10.5 L Hct 34.2 L MCV 97.4 MCH 29.9 MCHC 30.7 L RDW 18.8 H Plt Count 195 MPV 8.6 L Immature Gran % (Auto) 2.7 H Neut % (Auto) 75.9 H Lymph % (Auto) 10.8 L Mclennan % (Auto) 8.4 Eos % (Auto) 2.0 Baso % (Auto) 0.2 Lymph # (Auto) 1.2 Mclennan # (Auto) 1.0 Eos # (Auto) 0.2 Baso # (Auto) 0.0 Abs Immat Gran (auto) 0.31 H Absolute Neuts (auto) 8.7 H Absolute Nucleated RBC 0.000 Nucleated RBC % (auto) 0.0 VBG pH 7.48 H VBG pCO2 41 VBG pO2 54 VBG HCO3 31 H VBG O2 Saturation 82.0 VBG Base Excess 7.1 Sodium 137 Potassium 4.8 D Chloride 96 Carbon Dioxide 27 Anion Gap 19 BUN 71 H Creatinine 1.90 H Estim Creat Clear Calc 37.7 Estimated GFR 26 POC Glucose Random Glucose 224 H Lactic Acid Lactic Acid F/U @ 2Hr Calcium 8.4 Phosphorus 4.7 H Magnesium 2.3 Total Bilirubin 1.1 H AST 37 H ALT 18 Alkaline Phosphatase 134 H Troponin I High Sens B-Natriuretic Peptide Total Protein 6.1 L Albumin 3.1 L 08/12/22 08/12/2208/12/23 19:19 19:19 19:19 WBC RBC Hgb Hct MCV MCH MCHC RDW Plt Count MPV Immature Gran % (Auto) Neut % (Auto) Lymph % (Auto) Mclennan % (Auto) Eos % (Auto) Baso % (Auto) Lymph # (Auto) Mclennan # (Auto) Eos # (Auto) Baso # (Auto) Abs Immat Gran (auto) Absolute Neuts (auto) Absolute Nucleated RBC Nucleated RBC % (auto) VBG pH VBG pCO2 VBG pO2 VBG HCO3 VBG O2 Saturation VBG Base Excess Sodium Potassium Chloride Carbon Dioxide Anion Gap BUN Creatinine Estim Creat Clear Calc Estimated GFR POC Glucose Random Glucose Lactic Acid 4.0 H* Lactic Acid F/U @ 2Hr Calcium Phosphorus Magnesium 2.4 Total Bilirubin AST ALT Alkaline Phosphatase Troponin I High Sens 61.7 H* D B-Natriuretic Peptide Total Protein Albumin 08/12/22 08/12/22 08/12/22 19:19 21:57 22:30 WBC RBC Hgb Hct MCV MCH MCHC RDW Plt Count MPV Immature Gran % (Auto) Neut % (Auto) Lymph % (Auto) Mclennan % (Auto) Eos % (Auto) Baso % (Auto) Lymph # (Auto) Mclennan # (Auto) Eos # (Auto) Baso # (Auto) Abs Immat Gran (auto) Absolute Neuts (auto) Absolute Nucleated RBC Nucleated RBC % (auto) VBG pH VBG pCO2 VBG pO2 VBG HCO3 VBG O2 Saturation VBG Base Excess Sodium Potassium Chloride Carbon Dioxide Anion Gap BUN Creatinine Estim Creat Clear Calc Estimated GFR POC Glucose Random Glucose Lactic Acid Lactic Acid F/U @ 2Hr 0.9 Calcium Phosphorus Magnesium Total Bilirubin AST ALT Alkaline Phosphatase Troponin I High Sens 138.8 H* D B-Natriuretic Peptide 994 H Total Protein Albumin 08/12/22 08/13/22 08/13/22 23:36 00:11 00:11 WBC 18.7 H RBC 3.16 L Hgb 9.6 L Hct 30.4 L MCV 96.2 MCH 30.4 MCHC 31.6 RDW 18.4 H Plt Count 189 MPV 8.6 L Immature Gran % (Auto) Neut % (Auto) Lymph % (Auto) Mclennan % (Auto) Eos % (Auto) Baso % (Auto) Lymph # (Auto) Mclennan # (Auto) Eos # (Auto) Baso # (Auto) Abs Immat Gran (auto) Absolute Neuts (auto) Absolute Nucleated RBC 0.000 Nucleated RBC % (auto) 0.0 VBG pH VBG pCO2 VBG pO2 VBG HCO3 VBG O2 Saturation VBG Base Excess Sodium 137 Potassium 4.0 Chloride 95 L Carbon Dioxide 32 H Anion Gap 14 BUN 71 H Creatinine 1.74 H Estim Creat Clear Calc 41.1 Estimated GFR 29 POC Glucose 207 H Random Glucose 205 H Lactic Acid Lactic Acid F/U @ 2Hr Calcium 8.7 Phosphorus Magnesium Total Bilirubin AST ALT Alkaline Phosphatase Troponin I High Sens B-Natriuretic Peptide Total Protein Albumin 08/13/22 08/13/22 08/13/22 04:50 04:50 04:50 WBC RBC Hgb Hct MCV MCH MCHC RDW Plt Count MPV Immature Gran % (Auto) Neut % (Auto) Lymph % (Auto) Mclennan % (Auto) Eos % (Auto) Baso % (Auto) Lymph # (Auto) Mclennan # (Auto) Eos # (Auto) Baso # (Auto) Abs Immat Gran (auto) Absolute Neuts (auto) Absolute Nucleated RBC Nucleated RBC % (auto) VBG pH VBG pCO2 VBG pO2 VBG HCO3 VBG O2 Saturation VBG Base Excess Sodium 138 Potassium 3.8 Chloride 96 Carbon Dioxide 33 H Anion Gap 13 BUN 71 H Creatinine 1.67 H Estim Creat Clear Calc 42.8 Estimated GFR 30 POC Glucose Random Glucose 186 H Lactic Acid Lactic Acid F/U @ 2Hr Calcium 8.7 Phosphorus 4.1 Magnesium 2.4 Total Bilirubin 1.2 H AST 32 H ALT 16 Alkaline Phosphatase 94 Troponin I High Sens 157.6 H* B-Natriuretic Peptide 745 H Total Protein 5.5 L Albumin 3.1 L 08/13/22 08/13/22 08/13/22 04:50 04:50 05:07 WBC 12.5 H RBC 2.94 L Hgb 8.9 L Hct 28.6 L MCV 97.3 MCH 30.3 MCHC 31.1 RDW 18.5 H Plt Count 183 MPV 8.7 L Immature Gran % (Auto) 0.6 H Neut % (Auto) 77.9 H Lymph % (Auto) 9.6 L Mclennan % (Auto) 9.5 Eos % (Auto) 2.1 Baso % (Auto) 0.3 Lymph # (Auto) 1.2 Mclennan # (Auto) 1.2 Eos # (Auto) 0.3 Baso # (Auto) 0.0 Abs Immat Gran (auto) 0.07 H Absolute Neuts (auto) 9.7 H Absolute Nucleated RBC 0.000 Nucleated RBC % (auto) 0.0 VBG pH 7.45 H VBG pCO2 63 VBG pO2 54 VBG HCO3 44 H VBG O2 Saturation 82.0 VBG Base Excess 18.3 Sodium Potassium Chloride Carbon Dioxide Anion Gap BUN Creatinine Estim Creat Clear Calc Estimated GFR POC Glucose Random Glucose Lactic Acid 0.9 Lactic Acid F/U @ 2Hr Calcium Phosphorus Magnesium Total Bilirubin AST ALT Alkaline Phosphatase Troponin I High Sens B-Natriuretic Peptide Total Protein Albumin 08/13/22 08:56 WBC RBC Hgb 8.7 L Hct 27.4 L MCV MCH MCHC RDW Plt Count MPV Immature Gran % (Auto) Neut % (Auto) Lymph % (Auto) Mclennan % (Auto) Eos % (Auto) Baso % (Auto) Lymph # (Auto) Mclennan # (Auto) Eos # (Auto) Baso # (Auto) Abs Immat Gran (auto) Absolute Neuts (auto) Absolute Nucleated RBC Nucleated RBC % (auto) VBG pH VBG pCO2 VBG pO2 VBG HCO3 VBG O2 Saturation VBG Base Excess Sodium Potassium Chloride Carbon Dioxide Anion Gap BUN Creatinine Estim Creat Clear Calc Estimated GFR POC Glucose Random Glucose Lactic Acid Lactic Acid F/U @ 2Hr Calcium Phosphorus Magnesium Total Bilirubin AST ALT Alkaline Phosphatase Troponin I High Sens B-Natriuretic Peptide Total Protein Albumin Microbiology Microbiology Results: Microbiology 08/10/22 11:41 Blood - Venous Blood Culture - Preliminary No growth after 48 hours. 08/10/22 10:46 Blood - Venous Blood Culture - Preliminary No growth after 48 hours. Progress Note: A&P Assessment and plan (1) Cardiac arrest: Status: Acute (2) Acute on chronic respiratory failure with hypoxia and hypercapnia: Status: Acute (3) Acute on chronic diastolic (congestive) heart failure: Status: Acute (4) Chronic atrial fibrillation: Status: Acute (5) COPD (chronic obstructive pulmonary disease): Status: Acute (6) T2DM (type 2 diabetes mellitus): Status: Acute (7) MELANIE (obstructive sleep apnea): Status: Acute (8) Morbid obesity: Status: Acute Plan Assessment: 72-year-old lady with underlying advanced diastolic congestive heart failure with multiple admissions for heart failure exacerbation admitted with heart failure exacerbation with hospital course complicated by hypoxic episode resulting in bradycardia and asystolic cardiac arrest with successful resuscitation Plan: Neuro: No acute issues. Cardiac: Cardiac arrest secondary to hypoxia with bradycardia/asystole with CPR started immediately and successful resuscitation. Continue to titrate of pressor support as tolerated. 2D echocardiogram is pending. Cardiology service care appreciated. Underlying advanced diastolic congestive heart failure. Resume diuresis as tolerated. Pulmonary: Acute hypoxic respiratory failure, intubated during the CPR. Continue to titrate off ventilatory support as tolerated. Underlying MELANIE. Renal: Acute kidney injury on the background of congestive heart failure exacerbation. Non oliguric. Continue to monitor renal indices and urine output. Endo: No acute issues. Underlying diabetes mellitus on subcutaneous insulin protocol. GI: Coffee-ground aspirate on placement of for OG-tube on the background of post CPR and recent Xarelto use. Gastroenterology service care appreciated. Will monitor clinically at this time. Continue PPI. ID: No acute issues Heme/Onc: No acute issues. Psych: No acute issues. Miscellaneous: No acute issues. Prophylaxis: Pneumatic compression Diet: NPO Critical care time spent: 60 minutes Quality Stroke Does the patient have a stroke diagnosis?: No VTE Prior VTE?: No VTE Risk Level:: Medical - moderate - high VTE Device Contraindication: Treatment Not Indicated VTE Drug Contraindication: N/A - Med Ordered
[2022-08-13 12:27] LABS: Glucose, Whole Blood 186 mg/dL (60-115)
--- NOTE | 2022-08-13 12:44 | PM.GICN ---
History of Present Illness Data of Consult Service Date: 08/13/22 Requesting physician: Gwyn Tran Primary Care Provider: Teri Max MD [facility] Reason for consult: GI bleeding ??72-year-old female with history of morbid obesity, diastolic heart failure with end-stage heart failure, COPD, hyperlipidemia, type 2 diabetes with insulin who I am seeing for assessment for GI bleeding. Patient was initially admitted few days ago with worsening dyspnea, and increased edema with swollen legs and poor mobility. she was getting diuresed but then had a cardiac arrest yesterday evening possibly from hypoxia requiring chest compression and intervention for about 6 mins per chart with ROSC. She was stabilized and intubated and taken to the ICU and remains on the vent with propofol. An OG tube was placed and coffee ground material was suctioned, but now the returns are clear, with no bleeding noted. She received her last dose of eliquis last night. 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 Mother No problems noted. Brother No problems noted. Son No problems noted. Other Substance use disorder Surgical History Surgical History History of colectomy (~1983) History of colonoscopy History of hernia repair (~07/2011) History of hysteroscopy (~2007) History of left breast biopsy (~04/09/11) History of left inguinal hernia repair (~01/28/20) Social History Social History Household Members: None Housing: Apartment Do you presently have visiting nurse or other home services: Yes Unable to assess alcohol history related to: Unknown Alcohol intake: former Patient Tobacco Use Status: Former Tobacco user Smoked in Last 30 Days: No e-Cigarette/Vaping Use: Never Used Use of substances other than those prescribed or required for medical reasons: No Currently Displaying Signs/Symptoms of Drug Intoxication Withdrawal: No Have you been hit, kicked, punched, or otherwise hurt by someone within the past year? If so, by whom?: No Do you feel safe in your current relationship?: No Current Relationship Is there a partner from a previous relationship who is making you feel unsafe now?: No Are you made to feel afraid or neglected: No Advance Directives: Yes Advance Directives on File: Yes Advance Directives Date on File: 02/09/21 Do you have thoughts of harming others: None Do you have a plan to hurt others: No Plan Recently lost weight without trying: No How much weight loss: Not applicable Eating poorly because of decreased appetite: No Nutrition screen score: 0 Nutrition Risks: Difficulty swallowing Patient : No service: No Current occupational status: retired Cognitive needs: No Hearing needs: No Vision needs: Yes Meds Allergies Allergy/AdvReac Type Severity Reaction Status Date / Time oxycodone [Percocet] Allergy Unknown nausea and Verified 07/04/22 10:02 vomiting Active Medications: Current Medications Acetaminophen (Acetaminophen 325 Mg Tablet) 650 mg PO Q6H PRN PRN Reason: Pain, Mild (Pain Scale 1-3) Last Admin: 08/12/22 16:30 Dose: 650 mg Dextrose (Dextrose 50 % 25 Gm/50 Ml Syringe) 25 gm IVPUSH Q15M PRN; Protocol PRN Reason: per Hypoglycemia Standing Ord. Glucose (Glucose Gel 15 Gm Gel..Gram.) 15 gm PO Q15M PRN; Protocol PRN Reason: per Hypoglycemia Standing Ord. Fentanyl (Sublimaze/Ns) 1,000 mcg in 100 mls @ 0 mls/hr IVCONT .Q0M [facility]; Protocol Norepinephrine Bitartrate (Levophed) 8 mg in 250 mls @ 0 mls/hr IV .Q0M [facility]; Protocol Last Titration: 08/13/22 05:10 Dose: 0.1 mcg/kg/min, 25.74 mls/hr Propofol (Diprivan) 1,000 mg in 100 mls @ 0 mls/hr IVCONT .Q0M [facility]; Protocol Last Admin: 08/13/22 09:12 Dose: 30 mcg/kg/min, 24.71 mls/hr Pantoprazole Sodium 80 mg/ (Sodium Chloride) 100 mls @ 10 mls/hr IV .Q10H [facility] Last Admin: 08/13/22 08:15 Dose: 8 mg/hr, 10 mls/hr Insulin Human Lispro (Insulin Lispro 100 Unit/Ml 3 Ml Vial) 0 unit SUBCUT Q6H [facility]; Protocol Last Admin: 08/13/22 05:50 Dose: 2 unit Nystatin (Nystatin Powder 15 Gm Bottle) 1 appl TOPICAL BID [facility]; Protocol Last Admin: 08/13/22 07:41 Dose: 1 appl Ondansetron HCl (Ondansetron Hcl 4 Mg/2 Ml Vial) 4 mg IVPUSH Q8H PRN PRN Reason: Nausea and Vomiting Pharmacy Consult (Consult Rx Perform Med Rec) 1 each MISCELLANE ONCE PRN PRN Reason: Consult order Sodium Chloride (0.9 % Sodium Chloride Flush 3 Ml Syringe) 3 ml IVFLUSH QSHIFT [facility] Last Admin: 08/13/22 07:34 Dose: 3 ml Home Medications Medication Instructions Recorded Confirmed Last Taken Type cholecalciferol (vitamin D3) 25 25 mcg PO DAILY 04/24/20 08/10/22 08/10/22 09:00 History mcg (1,000 unit) capsule vitamin B complex 1 tab PO DAILY 04/24/20 08/10/22 08/10/22 09:00 History zinc acetate 50 mg (zinc) capsule 50 mg PO DAILY 04/24/20 08/10/22 08/09/22 History multivitamin 1 tab PO DAILY 06/13/20 08/10/22 08/10/22 09:00 History ferrous sulfate 325 mg (65 mg 325 mg PO DAILY 09/14/20 08/10/22 08/10/22 09:00 History iron) tablet (Feosol) docusate sodium 100 mg capsule 100 mg PO DAILY 05/31/21 08/10/22 08/10/22 09:00 History (Colace) allopurinol 100 mg tablet 100 mg PO DAILY 09/24/21 08/10/22 08/10/22 09:00 History dulaglutide 4.5 mg/0.5 mL 4.5 mg subcut TU@0900 04/04/22 08/10/22 08/06/22 History subcutaneous pen injector (Trulicity) insulin aspart U-100 100 unit/mL 4 - 12 unit subcut TIDAC 06/05/22 08/10/22 08/10/22 09:00 History (3 mL) subcutaneous pen (Novolog FlexPen U-100 Insulin aspart) rivaroxaban 15 mg tablet (Xarelto) 15 mg PO DAILY@1800 08/10/22 08/10/22 08/09/22 History spironolactone 25 mg tablet 12.5 mg PO DAILY 08/10/22 08/10/22 08/10/22 09:00 History Physical Exam Vital Signs: Vital Signs: Last Vital Signs Temp 95.7 F L 08/13/22 12:00 Pulse 99 08/13/22 12:00 Resp 19 08/13/22 12:00 BP 95/62 08/13/22 12:00 Pulse Ox 93 08/13/22 12:00 O2 Del Method 08/13/22 12:00 O2 Flow Rate 4 08/12/22 11:17 FiO2 55 08/13/22 12:00 Oxygen Flow Rate 3 08/10/22 09:54 BMI result Body Mass Index 48.8 EXAM: GENERAL: The patient is obese, intubated, ventilated. VITAL SIGNS:see workflow HEENT: Nonicteric sclerae, PERRLA, EOMI. Oropharynx clear. Moist mucous membranes. Conjunctivae appear well perfused. No thyroid mass. CHEST: Chest wall is nontender. HEART: Irregular rate and rhythm without murmurs. LUNGS: Clear to auscultation bilaterally. ABDOMEN: Soft, positive bowel sounds, nontender, no organomegaly.no flank tenderness SKIN: No rash, no excessive bruising, petechiae, or purpura. Swollen legs with edema NEUROLOGIC: Cranial nerves II-XII intact without motor/sensory deficit. PSYCH: unable to eval as intubated Results Labs 08/13/22 08:56 08/13/22 04:50 Labs: Short CBC 08/12/22 08/13/22 08/13/22 Range/Units 19:19 00:11 04:50 WBC 11.4 H 18.7 H 12.5 H (4.8-10.8) X10*3/uL Hgb 10.5 L 9.6 L 8.9 L (12.0-16.0) g/dl Hct 34.2 L 30.4 L 28.6 L (37.0-47.0) % Plt Count 195 189 183 (160-400) X10*3/uL 08/13/22 Range/Units 08:56 WBC (4.8-10.8) X10*3/uL Hgb 8.7 L (12.0-16.0) g/dl Hct 27.4 L (37.0-47.0) % Plt Count (160-400) X10*3/uL BMP 08/12/22 08/13/22 08/13/22 19:19 00:11 04:50 Sodium 137 137 138 Potassium 4.8 D 4.0 3.8 Chloride 96 95 L 96 Carbon Dioxide 27 32 H 33 H BUN 71 H 71 H 71 H Creatinine 1.90 H 1.74 H 1.67 H Calcium 8.4 8.7 8.7 Liver Function 08/12/22 08/13/22 Range/Units 19:19 04:50 Total Bilirubin 1.1 H 1.2 H (0.0-1.0) mg/dL AST 37 H 32 H (5-31) U/L ALT 18 16 (0-31) U/L Alkaline Phosphatase 134 H 94 (39-117) U/L Albumin 3.1 L 3.1 L (3.5-5.0) g/dL Microbiology Microbiology Results: Microbiology 08/10/22 11:41 Blood - Venous Blood Culture - Preliminary No growth after 48 hours. 08/10/22 10:46 Blood - Venous Blood Culture - Preliminary No growth after 48 hours. Assessment and Plan (1) Acute anemia: Status: Acute Plan 1/ Acute upper GI bleeding in the setting of cardiac arrest adn chest compression with last dose eliquis last night. most likely mucosal and trauma related bleeding, seems to have stopped now PLAN: 1/ Recommend carafate thru OG 2/ PPI e.g omeprazole 40 mg BID 3/ if ongoing evidence of bleeding consider Kcentra, 4/ hold on EGD for the moment unless further clinical evidence of GI bleeding, primary team will cont to hold eliquis for few days at least discussed with Dr Tran Time Spent With Patient Time: Total time managing care of this patient today ____ minutes. Procedures Date of Service Date of Service: 08/13/22
[2022-08-13] MEDS: Norepinephrine Bitartrate/D5W 8 MG/250 ML PLAST..BAG 25.74 MG IV (13:56)
[2022-08-13 14:54] LABS: Anion Gap 13 (12-20); Blood Urea Nitrogen 66 mg/dL (9-16); Carbon Dioxide 34 mmol/L (22-29); Chloride 96 mmol/L (96-108); Creatinine Clr Calc Pharmacy 49.6; Estimated Glomerular Filt Rate 36; Glucose Random 199 mg/dL (60-115); Potassium 3.4 mmol/L (3.3-5.1); Sodium 140 mmol/L (135-145)
[2022-08-13] MEDS: Potassium Chloride/H20 40 MEQ/100 ML PIGGYBACK 100 MEQ IV (15:50)
[2022-08-13] MEDS: Bumetanide 25 MG in Container,Empty 0 ML 4 MG IVCONT (16:01)
[2022-08-13 17:57] LABS: Glucose, Whole Blood 203 mg/dL (60-115)
--- NOTE | 2022-08-13 18:27 | PC.NURSE ---
Pt continues to be sedated and intubated, on AC vent settings at 14/400/5/55%, tolerating. Pt on tele: continues to be Afib with PVCs (rates- 70s-110s); continues to be on Levophed gtt, unable to wean off at this time. Pt's ETTube draining moderate amount of ricardo red blood upon suctioning, MD aware, H&H re drawn (see report). GI consulted at bedside: plan to monitor at this time, OGtube clamped from LWS per MD's order. Pt continues to be on Protonix gtt per order. Oral and ETT secretions of bloody drainage reducing throughout the shift. Echo performed at bedside, plan to repeat in the am as study unclear per MD. BMP drawn (see report). Bumex gtt initiated per MD's order at 1mg/hr; pt's UO approximately 950cc since the gtt. Pt currently in no acute distress. Pt bathed and repositioned every 2 hrs and as needed; prevalon system and wedges utilized. Bed alarmed. Safety maintained. Will continue to monitor.
[2022-08-13] MEDS: Norepinephrine Bitartrate/D5W 8 MG/250 ML PLAST..BAG 30.89 MG IV (21:20)
[2022-08-13 23:43] LABS: Glucose, Whole Blood 221 mg/dL (60-115)
[2022-08-14] VITALS (41 sets, daily range): BP systolic 86–118; BP diastolic 41–63; PULSE 102–140; RESP 11–37; TEMP 34.8–38.4; O2SAT 88–93
[2022-08-14] MEDS: Insulin Lispro 100 UNIT/ML 3 ML VIAL SUBCUT ×4 (00:11→18:23)
[2022-08-14] MEDS: Metoprolol Tartrate 5 MG/5 ML VIAL 2.5 MG IVPUSH (03:06)
[2022-08-14] MEDS: Pantoprazole Sodium 80 MG in 0.9 % Sodium Chloride 80 ML 10 MG IV ×3 (03:14→21:35)
[2022-08-14] MEDS: propofoL 1,000 MG/100 ML VIAL 24.71 MG IVCONT ×3 (03:20→10:55)
[2022-08-14 05:06] LABS: VBG Base Excess 23.1 mmol/L; VBG HCO3 47 mmol/L (22-26); VBG pCO2 52 mmHg; VBG pH 7.57 (7.32-7.43); VBG pO2 50 mmHg
[2022-08-14 05:09] LABS: MANUAL DIFF FLAG NO
[2022-08-14 05:11] LABS: Basophils Percent Auto 0.2 % (0-2); Eosinophils Absolute Auto 0.1 X10*3/uL (0.0-0.4); Eosinophils Percent Auto 0.5 % (0-4); Hematocrit 25.8 % (37.0-47.0); Hemoglobin 8.4 g/dl (12.0-16.0); Imm Gran Abs Auto 0.06 X10*3/uL (0.00-0.03); Imm Gran Pct Auto 0.5 % (0.0-0.4); Lymphocytes Absolute Auto 0.5 X10*3/uL (1.2-4.9); Lymphocytes Percent Auto 4.1 % (20-40); Mean Corpuscular HGB Conc 32.6 g/dl (31.0-35.0); Mean Corpuscular Hemoglobin 30.8 pg (27.0-33.0); Mean Corpuscular Volume 94.5 fL (80.0-98.0); Mean Platelet Volume 8.7 fL (9.4-12.3); Monocytes Absolute Auto 1.2 X10*3/uL (0.1-1.2); Monocytes Percent Auto 9.7 % (2-11); Neutrophils Absolute Auto 10.8 x10*3/uL (2.0-8.3); Platelet Count 180 X10*3/uL (160-400); Red Blood Count 2.73 X10*6/uL (4.20-5.50); Red Cell Distribution Width 18.8 % (11.0-16.0); Venous Blood Gas Refer to POC result; White Blood Count 12.8 X10*3/uL (4.8-10.8)
[2022-08-14 05:29] LABS: Albumin Level 3.3 g/dL (3.5-5.0); Anion Gap 16 (12-20); Blood Urea Nitrogen 59 mg/dL (9-16); Calcium 9.2 mg/dL (8.4-10.2); Carbon Dioxide 34 mmol/L (22-29); Chloride 95 mmol/L (96-108); Creatinine Clr Calc Pharmacy 49.3; Estimated Glomerular Filt Rate 35; Glucose Random 203 mg/dL (60-115); Magnesium 2.1 mg/dL (1.6-2.6); Potassium 2.7 mmol/L (3.3-5.1); Sodium 142 mmol/L (135-145)
[2022-08-14] MEDS: Norepinephrine Bitartrate/D5W 8 MG/250 ML PLAST..BAG 28.32 MG IV (05:45)
[2022-08-14] MEDS: Potassium Chloride Packet 20 MEQ PACKET 80 MEQ PO (07:25)
[2022-08-14] MEDS: Albumin Human 25 % 100 ML IV ×2 (07:31→09:10)
[2022-08-14] MEDS: 0.9 % Sodium Chloride Flush 3 ML SYRINGE IVFLUSH ×2 (07:51→16:27)
[2022-08-14] MEDS: Potassium Chloride/H20 40 MEQ/100 ML PIGGYBACK 100 MEQ IV ×3 (09:09→16:26)
[2022-08-14] MEDS: Sucralfate Oral Suspension 1 GM/10 ML ORAL.SUSP PO ×2 (09:09→21:35)
--- NOTE | 2022-08-14 10:07 | MHC.CLN ---
F/U PT REMAINS INTUBATED AND SEDATED DISCUSSED AT ROUNDS WITH PT TO REMAIN NPO FOR TODAY IF TF NEEDED; RECOMMEND PROMOTE AT MAX GOAL RATE 30ML/HR TO PROVIDE 720KCALS (1372KCALS WITH SEDATION; 23KCALS/KG BASED ON IBW), 45G PROTEIN (.76G/KG), 604ML FREE WATER FROM FORMULA MONITOR TOLERANCE, RESIDUALS AND LYTES
[2022-08-14] MEDS: Amiodarone/Dextrose 150 MG/100 ML PLAST..BAG 600 MG IV (10:26)
[2022-08-14] MEDS: Nystatin Powder 15 GM BOTTLE 1 APPL TOPICAL ×2 (10:29→22:26)
[2022-08-14] MEDS: Bumetanide 25 MG in Container,Empty 0 ML 4 MG IVCONT (10:30)
--- NOTE | 2022-08-14 10:40 | P.PNCC_ITS ---
Subjective Subjective Date of Service: 08/14/22 Interval History: 72-year-old lady with underlying history of morbid obesity, AFib, multiple admissions for exacerbation of underlying chronic diastolic congestive heart failure secondary to poor compliance with ambulatory diuretic regimen, COPD, diabetes mellitus admitted on 08/10/2022 with dyspnea and acute hypoxic respiratory failure secondary to exacerbation of underlying chronic diastolic congestive heart failure with retainingof approximately 30 lb of water weight. Patient was admitted to general medical [facility] and started on IV diuresis with some improvement. Hospital course significant for episode of profound hypoxemia on 08/12/2022 with ambulation resulting in bradycardia and asystolic cardiac arrest with CPR started immediately and return of spontaneous circulation achieved after 6 minutes of CPR. Patient was intubated during the CPR. Patient has sustained 2nd and brief cardiac arrest up to 1 minute while being transp orted to the intensive care unit, also with successful resuscitation. Overnight with development of rapid AFib. FiO2 requirements improving with diuresis. Critical Care Time (minutes): 45 Physical Exam Vital Signs: Vital Signs: Last Vital Signs Temp 100.6 F H 08/14/22 10:00 Pulse 140 H 08/14/22 10:05 Resp 36 H 08/14/22 10:05 BP 107/47 L 08/14/22 10:00 Pulse Ox 91 L 08/14/22 10:00 O2 Del Method 08/14/22 10:00 O2 Flow Rate 4 08/12/22 11:17 FiO2 55 08/14/22 10:00 Oxygen Flow Rate 3 08/10/22 09:54 BMI result Body Mass Index 48.8 Const: General: no acute distress and other (Sedated on the vent) Nutritional Appearance: obese and Edematous Eyes: Sclerae: sclerae normal EOM: EOMs intact bilaterally Neck: Neck: Yes no lymphadenopathy, Yes trachea midline and Yes supple Resp: Auscultation: crackles (Diffuse bilateral) Cardio: Rate: regular rate and tachycardic Rhythm: abnormal rhythm irregularly irregular Heart sounds: no gallops, no murmurs and no rubs GI: Palpation (GI): Soft to palpation and Other GI palpation findings present ( Nontender) Auscultation: normal bowel sounds Extrem: General: No clubbing, No cyanosis and Yes edema (2+ bilateral) Objective Data Labs 08/14/22 04:53 08/14/22 04:53 Labs: Laboratory Results - last 24 hr 08/13/22 08/13/22 08/13/22 12:24 13:58 17:48 WBC RBC Hgb Hct MCV MCH MCHC RDW Plt Count MPV Immature Gran % (Auto) Neut % (Auto) Lymph % (Auto) [place] % (Auto) Eos % (Auto) Baso % (Auto) Lymph # (Auto) [place] # (Auto) Eos # (Auto) Baso # (Auto) Abs Immat Gran (auto) Absolute Neuts (auto) Absolute Nucleated RBC Nucleated RBC % (auto) VBG pH VBG pCO2 VBG pO2 VBG HCO3 VBG O2 Saturation VBG Base Excess Sodium 140 Potassium 3.4 Chloride 96 Carbon Dioxide 34 H Anion Gap 13 BUN 66 H Creatinine 1.44 H Estim Creat Clear Calc 49.6 Estimated GFR 36 POC Glucose 186 H 203 H Random Glucose 199 H Calcium 9.0 Phosphorus Magnesium Albumin 08/13/22 08/14/22 08/14/22 23:37 04:53 04:53 WBC 12.8 H RBC 2.73 L Hgb 8.4 L Hct 25.8 L MCV 94.5 MCH 30.8 MCHC 32.6 RDW 18.8 H Plt Count 180 MPV 8.7 L Immature Gran % (Auto) 0.5 H Neut % (Auto) 85.0 H Lymph % (Auto) 4.1 L [place] % (Auto) 9.7 Eos % (Auto) 0.5 Baso % (Auto) 0.2 Lymph # (Auto) 0.5 L [place] # (Auto) 1.2 Eos # (Auto) 0.1 Baso # (Auto) 0.0 Abs Immat Gran (auto) 0.06 H Absolute Neuts (auto) 10.8 H Absolute Nucleated RBC 0.000 Nucleated RBC % (auto) 0.0 VBG pH VBG pCO2 VBG pO2 VBG HCO3 VBG O2 Saturation VBG Base Excess Sodium 142 Potassium 2.7 L D Chloride 95 L Carbon Dioxide 34 H Anion Gap 16 BUN 59 H Creatinine 1.45 H Estim Creat Clear Calc 49.3 Estimated GFR 35 POC Glucose 221 H Random Glucose 203 H Calcium 9.2 Phosphorus 4.0 Magnesium 2.1 Albumin 3.3 L 08/14/22 04:59 WBC RBC Hgb Hct MCV MCH MCHC RDW Plt Count MPV Immature Gran % (Auto) Neut % (Auto) Lymph % (Auto) [place] % (Auto) Eos % (Auto) Baso % (Auto) Lymph # (Auto) [place] # (Auto) Eos # (Auto) Baso # (Auto) Abs Immat Gran (auto) Absolute Neuts (auto) Absolute Nucleated RBC Nucleated RBC % (auto) VBG pH 7.57 H VBG pCO2 52 VBG pO2 50 VBG HCO3 47 H VBG O2 Saturation 78.0 VBG Base Excess 23.1 Sodium Potassium Chloride Carbon Dioxide Anion Gap BUN Creatinine Estim Creat Clear Calc Estimated GFR POC Glucose Random Glucose Calcium Phosphorus Magnesium Albumin Microbiology Microbiology Results: Microbiology 08/10/22 11:41 Blood - Venous Blood Culture - Preliminary No growth after 48 hours. 08/10/22 10:46 Blood - Venous Blood Culture - Preliminary No growth after 48 hours. Progress Note: A&P Assessment and plan (1) Cardiac arrest: Status: Acute (2) Acute on chronic respiratory failure with hypoxia and hypercapnia: Status: Acute (3) Acute exacerbation of congestive heart failure: Status: Acute (4) (HFpEF) heart failure with preserved ejection fraction: Status: Acute (5) COPD (chronic obstructive pulmonary disease): Status: Acute (6) T2DM (type 2 diabetes mellitus): Status: Acute (7) Morbid obesity: Status: Acute (8) MELANIE (obstructive sleep apnea): Status: Acute (9) Pulmonary hypertension: Status: Acute (10) CORINNA (acute kidney injury): Status: Acute Plan Assessment: 72-year-old lady with underlying advanced diastolic congestive heart failure with multiple admissions for heart failure exacerbation admitted with heart failure exacerbation with hospital course complicated by hypoxic episode resulting in bradycardia and asystolic cardiac arrest with successful resuscitation Plan: Neuro: No acute issues. Cardiac: Cardiac arrest secondary to hypoxia with bradycardia/asystole with CPR started immediately and successful resuscitation. Continue to titrate of pressor support as tolerated. 2D echocardiogram is pending. Cardiology service care appreciated. Underlying advanced diastolic congestive heart failure. Improving with diuresis. Started on rate control for AFib with RVR. Pulmonary: Acute hypoxic respiratory failure, intubated during the CPR. Continue to titrate off ventilatory support as tolerated. Underlying MELANIE. Renal: Acute kidney injury on the background of congestive heart failure exacerbation. Non oliguric. Continue to monitor renal indices and urine output. Endo: No acute issues. Underlying diabetes mellitus on subcutaneous insulin protocol. GI: Coffee-ground aspirate on placement of for OG-tube on the background of post CPR and recent Xarelto use. Gastroenterology service care appreciated. Will monitor clinically at this time. Continue PPI. ID: No acute issues Heme/Onc: No acute issues. Psych: No acute issues. Miscellaneous: No acute issues. Prophylaxis: Pneumatic compression Diet: NPO Critical care time spent: 45 minutes Quality Stroke Does the patient have a stroke diagnosis?: No VTE Prior VTE?: No VTE Risk Level:: Medical - moderate - high VTE Device Contraindication: Treatment Not Indicated VTE Drug Contraindication: N/A - Med Ordered
[2022-08-14] MEDS: Amiodarone HCL 900 MG in 0.9 % Sodium Chloride 500 ML 34.53 MG IVCONT (10:45)
[2022-08-14] MEDS: fentaNYL citrate/PF 100 MCG/2 ML VIAL 50 MCG IVPUSH ×2 (11:00→14:11)
[2022-08-14] MEDS: Norepinephrine Bitartrate/D5W 8 MG/250 ML PLAST..BAG 48.91 MG IV (11:50)
[2022-08-14 12:10] LABS: Glucose, Whole Blood 232 mg/dL (60-115)
--- NOTE | 2022-08-14 12:22 | P.PNCA_ITS ---
Subjective Subjective Date of Service: 08/14/22 Principal diagnosis: decompensated congestive heart failure, atrial fibrillation. Interval history: patient remains intubated. Still requiring 55% of FiO2. Heart rate is elevated and running low-grade temperature. Oxygen saturation in 90% range. Patient is currently on Levophed. Did receive metoprolol last night with improvement in heart rate but due to softer blood pressures the medications have been withheld. Sedation has been turned of to see if patient can be extubated. Overnight diuresis about 5 L. creatinine is improved Review of Systems Review of Systems Yes unobtainable due to endotracheal tube Physical Exam Vital Signs: Last Vital Signs Temp 100.9 F H 08/14/22 12:00 Pulse 121 H 08/14/22 12:00 Resp 19 08/14/22 12:00 BP 110/55 L 08/14/22 12:00 Pulse Ox 89 L 08/14/22 12:00 O2 Del Method 08/14/22 12:00 O2 Flow Rate 4 08/12/22 11:17 FiO2 65 08/14/22 12:00 Oxygen Flow Rate 3 08/10/22 09:54 BMI result Body Mass Index 48.8 Neck Neck: Yes trachea midline, Yes supple and Yes JVD Resp Effort & Inspection: normal respiratory effort Auscultation: no rales and no wheezes Cardio Rate: tachycardic Rhythm: abnormal rhythm irregularly irregular Heart sounds: S1 normal heart sound present and S2 normal heart sound present GI Inspection: Yes obesity Auscultation: normal bowel sounds Skin General skin exam: no rashes or lesions noted and ecchymosis Neuro General: no focal motor deficits Extrem General: No clubbing, No cyanosis and Yes edema Objective Labs and Meds 08/14/22 04:53 08/14/22 04:53 Lab results: Laboratory Results - last 24 hr 08/13/22 08/13/22 08/13/22 12:24 13:58 17:48 WBC RBC Hgb Hct MCV MCH MCHC RDW Plt Count MPV Immature Gran % (Auto) Neut % (Auto) Lymph % (Auto) [place] % (Auto) Eos % (Auto) Baso % (Auto) Lymph # (Auto) [place] # (Auto) Eos # (Auto) Baso # (Auto) Abs Immat Gran (auto) Absolute Neuts (auto) Absolute Nucleated RBC Nucleated RBC % (auto) VBG pH VBG pCO2 VBG pO2 VBG HCO3 VBG O2 Saturation VBG Base Excess Sodium 140 Potassium 3.4 Chloride 96 Carbon Dioxide 34 H Anion Gap 13 BUN 66 H Creatinine 1.44 H Estim Creat Clear Calc 49.6 Estimated GFR 36 POC Glucose 186 H 203 H Random Glucose 199 H Calcium 9.0 Phosphorus Magnesium Albumin 08/13/22 08/14/22 08/14/22 23:37 04:53 04:53 WBC 12.8 H RBC 2.73 L Hgb 8.4 L Hct 25.8 L MCV 94.5 MCH 30.8 MCHC 32.6 RDW 18.8 H Plt Count 180 MPV 8.7 L Immature Gran % (Auto) 0.5 H Neut % (Auto) 85.0 H Lymph % (Auto) 4.1 L [place] % (Auto) 9.7 Eos % (Auto) 0.5 Baso % (Auto) 0.2 Lymph # (Auto) 0.5 L [place] # (Auto) 1.2 Eos # (Auto) 0.1 Baso # (Auto) 0.0 Abs Immat Gran (auto) 0.06 H Absolute Neuts (auto) 10.8 H Absolute Nucleated RBC 0.000 Nucleated RBC % (auto) 0.0 VBG pH VBG pCO2 VBG pO2 VBG HCO3 VBG O2 Saturation VBG Base Excess Sodium 142 Potassium 2.7 L D Chloride 95 L Carbon Dioxide 34 H Anion Gap 16 BUN 59 H Creatinine 1.45 H Estim Creat Clear Calc 49.3 Estimated GFR 35 POC Glucose 221 H Random Glucose 203 H Calcium 9.2 Phosphorus 4.0 Magnesium 2.1 Albumin 3.3 L 08/14/22 08/14/22 04:59 11:56 WBC RBC Hgb Hct MCV MCH MCHC RDW Plt Count MPV Immature Gran % (Auto) Neut % (Auto) Lymph % (Auto) [place] % (Auto) Eos % (Auto) Baso % (Auto) Lymph # (Auto) [place] # (Auto) Eos # (Auto) Baso # (Auto) Abs Immat Gran (auto) Absolute Neuts (auto) Absolute Nucleated RBC Nucleated RBC % (auto) VBG pH 7.57 H VBG pCO2 52 VBG pO2 50 VBG HCO3 47 H VBG O2 Saturation 78.0 VBG Base Excess 23.1 Sodium Potassium Chloride Carbon Dioxide Anion Gap BUN Creatinine Estim Creat Clear Calc Estimated GFR POC Glucose 232 H Random Glucose Calcium Phosphorus Magnesium Albumin Progress Note: A&P Assessment and plan (1) Acute exacerbation of congestive heart failure: Status: Acute Assessment and Plan: acute exacerbation heart failure with cardiac arrest. Currently on mechanical ventilation may have a component of possibly aspiration for hypoxemia perspective. Diuresing well on current Bumex drip. Continue aggressive diuresis. Continue to monitor intake and output chart appears also continue to monitor electrolytes and renal function. Replace potassium aggressively, has had this issue in the past with marked hypokalemia. Continue better rate control. Continue supportive care. She has advanced heart failure and overall prognosis is poor. (2) Cardiac arrest: Status: Acute Assessment and Plan: Status post bradycardic cardiac arrest what appears to be most likely pulseless electrical activity most likely related to hypoxemia. Status post intubation. Currently heart rate is elevated. Continue supportive care. (3) Chronic atrial fibrillation: Status: Acute Assessment and Plan: Chronic atrial fibrillation has failed rhythm control in the past. Can give metoprolol IV 1.25 mg q.6 hours around the clock as she has been off her p.o. metoprolol and heart rate is elevated. Renal function is improved and also can use digoxin although there is concern for discharge disease hypokalemia. once potassium is improved switch to digoxin. Can use meanwhile amiodarone for rate control. Continue full oral anticoagulation. Will follow with you Time Spent With Patient Time: Total time managing care of this patient today ____ minutes. Progress Note: Quality Stroke Does the patient have a stroke diagnosis?: No Procedures Date of Service Date of Service: 08/14/22
[2022-08-14] MEDS: propofoL 1,000 MG/100 ML VIAL 32.95 MG IVCONT ×5 (13:04→23:31)
[2022-08-14 14:12] LABS: Anion Gap 19 (12-20); Blood Urea Nitrogen 57 mg/dL (9-16); Calcium 9.4 mg/dL (8.4-10.2); Carbon Dioxide 33 mmol/L (22-29); Chloride 96 mmol/L (96-108); Creatinine Clr Calc Pharmacy 47.3; Estimated Glomerular Filt Rate 34; Glucose Random 248 mg/dL (60-115); Potassium 3.2 mmol/L (3.3-5.1); Sodium 145 mmol/L (135-145)
[2022-08-14] MEDS: fentaNYL citrate/NS 1,000 MCG/100 ML PLAST..BAG 2.5 MCG IVCONT (14:19)
[2022-08-14] MEDS: Norepinephrine Bitartrate/D5W 8 MG/250 ML PLAST..BAG 54.06 MG IV (16:21)
[2022-08-14 18:16] LABS: Glucose, Whole Blood 259 mg/dL (60-115)
[2022-08-14] MEDS: Metoprolol Tartrate 5 MG/5 ML VIAL IVPUSH (19:22)
--- NOTE | 2022-08-14 19:24 | PC.NURSE ---
Sedation vacation initiated at 0839. Pt opened eyes spontaneously, did not track or follow commands. Pt had increased respiratory effort, became tachypneic and increasingly tachycardic. Sedation vacation ended at 1005 per MD. Started on Fentanyl gtt for vent synchrony and Amiodarone gtt for tachycardia. Pts micki Jiménez (HCP) and Jas came to visit, Marc updated family.
[2022-08-14] MEDS: Acetaminophen 325 MG TABLET 650 MG PO (19:43)
[2022-08-14] MEDS: Norepinephrine Bitartrate/D5W 8 MG/250 ML PLAST..BAG 64.36 MG IV (20:13)
[2022-08-14 22:23] LABS: Anion Gap 12 (12-20); Blood Urea Nitrogen 57 mg/dL (9-16); Calcium 9.1 mg/dL (8.4-10.2); Carbon Dioxide 37 mmol/L (22-29); Chloride 98 mmol/L (96-108); Creatinine Clr Calc Pharmacy 45.6; Estimated Glomerular Filt Rate 32; Glucose Random 264 mg/dL (60-115); Potassium 3.2 mmol/L (3.3-5.1); Sodium 144 mmol/L (135-145)
[2022-08-14] MEDS: Norepinephrine Bitartrate/D5W 8 MG/250 ML PLAST..BAG 69.5 MG IV (23:32)
[2022-08-15] VITALS (34 sets, daily range): BP systolic 91–140; BP diastolic 45–74; PULSE 97–124; RESP 12–22; TEMP 35–38.6; O2SAT 88–93
[2022-08-15 00:30] LABS: Glucose, Whole Blood 263 mg/dL (60-115)
[2022-08-15] MEDS: 0.9 % Sodium Chloride Flush 3 ML SYRINGE IVFLUSH ×3 (00:35→15:00)
[2022-08-15] MEDS: Insulin Lispro 100 UNIT/ML 3 ML VIAL SUBCUT ×5 (00:35→23:56)
[2022-08-15] MEDS: Potassium Chloride Packet 20 MEQ PACKET 80 MEQ PO (01:13)
[2022-08-15] MEDS: Potassium Chloride/H20 40 MEQ/100 ML PIGGYBACK 100 MEQ IV ×5 (01:13→21:03)
[2022-08-15] MEDS: Metoprolol Tartrate 5 MG/5 ML VIAL IVPUSH (01:15)
[2022-08-15] MEDS: propofoL 1,000 MG/100 ML VIAL 32.95 MG IVCONT ×3 (02:26→08:44)
[2022-08-15] MEDS: Norepinephrine Bitartrate/D5W 8 MG/250 ML PLAST..BAG 77.23 MG IV ×3 (03:06→09:09)
[2022-08-15 05:14] LABS: VBG Base Excess 24.1 mmol/L; VBG HCO3 50 mmol/L (22-26); VBG pCO2 67 mmHg; VBG pH 7.48 (7.32-7.43); VBG pO2 54 mmHg
[2022-08-15 05:16] LABS: Venous Blood Gas Refer to POC result
[2022-08-15] MEDS: fentaNYL citrate/NS 1,000 MCG/100 ML PLAST..BAG 5 MCG IVCONT (05:18)
[2022-08-15 05:24] LABS: Basophils Absolute Auto 0.1 X10*3/uL (0.0-0.2); Basophils Percent Auto 0.5 % (0-2); Eosinophils Absolute Auto 0.1 X10*3/uL (0.0-0.4); Eosinophils Percent Auto 0.7 % (0-4); Hemoglobin 8.5 g/dl (12.0-16.0); Imm Gran Abs Auto 0.17 X10*3/uL (0.00-0.03); Imm Gran Pct Auto 1.1 % (0.0-0.4); Lymphocytes Absolute Auto 1.1 X10*3/uL (1.2-4.9); Lymphocytes Percent Auto 7.3 % (20-40); MANUAL DIFF FLAG SCAN; Mean Corpuscular HGB Conc 31.5 g/dl (31.0-35.0); Mean Corpuscular Hemoglobin 30.4 pg (27.0-33.0); Mean Corpuscular Volume 96.4 fL (80.0-98.0); Mean Platelet Volume 8.7 fL (9.4-12.3); Monocytes Absolute Auto 1.8 X10*3/uL (0.1-1.2); Monocytes Percent Auto 12.2 % (2-11); Neutrophils Absolute Auto 11.7 x10*3/uL (2.0-8.3); Neutrophils Percent Auto 78.2 % (45-73); Platelet Count 199 X10*3/uL (160-400); Red Cell Distribution Width 19.3 % (11.0-16.0); SCAN SMEAR FLAG 1
[2022-08-15 05:43] LABS: Albumin Level 3.6 g/dL (3.5-5.0); Anion Gap 18 (12-20); Blood Urea Nitrogen 56 mg/dL (9-16); Calcium 9.1 mg/dL (8.4-10.2); Carbon Dioxide 35 mmol/L (22-29); Chloride 97 mmol/L (96-108); Creatinine Clr Calc Pharmacy 45.3; Estimated Glomerular Filt Rate 32; Glucose Random 256 mg/dL (60-115); Magnesium 1.9 mg/dL (1.6-2.6); Phosphorus 3.6 mg/dL (2.7-4.5); Potassium 3.8 mmol/L (3.3-5.1); Sodium 146 mmol/L (135-145)
[2022-08-15 05:51] LABS: SLIDE REVIEW VERIFIED
[2022-08-15 06:04] LABS: Procalcitonin 0.32 ng/mL
[2022-08-15] MEDS: Pantoprazole Sodium 80 MG in 0.9 % Sodium Chloride 80 ML 10 MG IV (07:20)
[2022-08-15] MEDS: Nystatin Powder 15 GM BOTTLE 1 APPL TOPICAL ×2 (07:21→20:05)
[2022-08-15] MEDS: Sucralfate Oral Suspension 1 GM/10 ML ORAL.SUSP PO ×2 (08:51→20:04)
[2022-08-15] MEDS: Digoxin 0.5 MG/2 ML AMPUL 0.25 MG IVPUSH ×3 (08:51→19:48)
[2022-08-15] MEDS: Bumetanide 25 MG in Container,Empty 0 ML 4 MG IVCONT (08:52)
[2022-08-15] MEDS: Amiodarone HCL 900 MG in 0.9 % Sodium Chloride 500 ML 17.27 MG IVCONT (10:25)
[2022-08-15] MEDS: Piperacillin Sodium/Tazobactam 3.375 GM in 0.9 % Sodium Chloride 50 ML IV ×3 (10:35→21:05)
--- NOTE | 2022-08-15 11:19 | MHC.CM.PN ---
Pt continues on ventilatory support in ICU: Plans are to reduce sedation to access MS function and ability to wean. Pt will likely require STR following recovery - no referrals have been made at this time as pt remains critical. CM to follow
--- NOTE | 2022-08-15 11:50 | P.PNCC_ITS ---
Subjective Subjective Date of Service: 08/15/22 Interval History: 72-year-old lady with underlying history of morbid obesity, AFib, multiple admissions for exacerbation of underlying chronic diastolic congestive heart failure secondary to poor compliance with ambulatory diuretic regimen, COPD, diabetes mellitus admitted on 08/10/2022 with dyspnea and acute hypoxic respiratory failure secondary to exacerbation of underlying chronic diastolic congestive heart failure with retainingof approximately 30 lb of water weight. Patient was admitted to general medical winkler and started on IV diuresis with some improvement. Hospital course significant for episode of profound hypoxemia on 08/12/2022 with ambulation resulting in bradycardia and asystolic cardiac arrest with CPR started immediately and return of spontaneous circulation achieved after 6 minutes of CPR. Patient was intubated during the CPR. Patient has sustained 2nd and brief cardiac arrest up to 1 minute while being transp orted to the intensive care unit, also with successful resuscitation No events overnight. Some improvement in rate control on digoxin and amiodarone. Starting to follow commands with sedation vacation. Critical Care Time (minutes): 45 Physical Exam Vital Signs: Vital Signs: Last Vital Signs Temp 100.6 F H 08/15/22 11:00 Pulse 122 H 08/15/22 11:00 Resp 18 08/15/22 11:00 BP 118/50 L 08/15/22 11:00 Pulse Ox 89 L 08/15/22 11:00 O2 Del Method 08/15/22 11:00 O2 Flow Rate 4 08/12/22 11:17 FiO2 60 08/15/22 11:00 Oxygen Flow Rate 3 08/10/22 09:54 BMI result Body Mass Index 48.8 Const: General: no acute distress and other (Sedated on the vent) Nutritional Appearance: obese and Edematous Eyes: Sclerae: sclerae normal EOM: EOMs intact bilaterally Neck: Neck: Yes no lymphadenopathy, Yes trachea midline and Yes supple Resp: Effort & Inspection: no respiratory distress Auscultation: crackles (Mild bilateral) Cardio: Rate: tachycardic Rhythm: abnormal rhythm irregularly irregular Heart sounds: no gallops, no murmurs and no rubs GI: Palpation (GI): Soft to palpation and Other GI palpation findings present ( Nontender) Auscultation: normal bowel sounds Extrem: General: No clubbing, No cyanosis and Yes edema (1+ bilateral) Objective Data Labs 08/15/22 05:00 08/15/22 05:00 Labs: Laboratory Results - last 24 hr 08/14/22 08/14/22 08/14/22 11:56 13:44 18:11 WBC RBC Hgb Hct MCV MCH MCHC RDW Plt Count MPV Immature Gran % (Auto) Neut % (Auto) Lymph % (Auto) [place] % (Auto) Eos % (Auto) Baso % (Auto) Lymph # (Auto) [place] # (Auto) Eos # (Auto) Baso # (Auto) Abs Immat Gran (auto) Absolute Neuts (auto) Absolute Nucleated RBC Nucleated RBC % (auto) Smear Tech's Comments VBG pH VBG pCO2 VBG pO2 VBG HCO3 VBG O2 Saturation VBG Base Excess Sodium 145 Potassium 3.2 L Chloride 96 Carbon Dioxide 33 H Anion Gap 19 BUN 57 H Creatinine 1.51 H Estim Creat Clear Calc 47.3 Estimated GFR 34 POC Glucose 232 H 259 H Random Glucose 248 H Calcium 9.4 Phosphorus Magnesium Albumin Procalcitonin 08/14/22 08/15/22 08/15/22 21:59 00:26 05:00 WBC 15.0 H RBC 2.80 L Hgb 8.5 L Hct 27.0 L MCV 96.4 MCH 30.4 MCHC 31.5 RDW 19.3 H Plt Count 199 MPV 8.7 L Immature Gran % (Auto) 1.1 H Neut % (Auto) 78.2 H Lymph % (Auto) 7.3 L [place] % (Auto) 12.2 H Eos % (Auto) 0.7 Baso % (Auto) 0.5 Lymph # (Auto) 1.1 L [place] # (Auto) 1.8 H Eos # (Auto) 0.1 Baso # (Auto) 0.1 Abs Immat Gran (auto) 0.17 H Absolute Neuts (auto) 11.7 H Absolute Nucleated RBC 0.000 Nucleated RBC % (auto) 0.0 Smear Tech's Comments VERIFIED VBG pH VBG pCO2 VBG pO2 VBG HCO3 VBG O2 Saturation VBG Base Excess Sodium 144 Potassium 3.2 L Chloride 98 Carbon Dioxide 37 H Anion Gap 12 BUN 57 H Creatinine 1.57 H Estim Creat Clear Calc 45.6 Estimated GFR 32 POC Glucose 263 H Random Glucose 264 H Calcium 9.1 Phosphorus Magnesium Albumin Procalcitonin 08/15/22 08/15/22 08/15/22 05:00 05:00 05:07 WBC RBC Hgb Hct MCV MCH MCHC RDW Plt Count MPV Immature Gran % (Auto) Neut % (Auto) Lymph % (Auto) [place] % (Auto) Eos % (Auto) Baso % (Auto) Lymph # (Auto) [place] # (Auto) Eos # (Auto) Baso # (Auto) Abs Immat Gran (auto) Absolute Neuts (auto) Absolute Nucleated RBC Nucleated RBC % (auto) Smear Tech's Comments VBG pH 7.48 H VBG pCO2 67 VBG pO2 54 VBG HCO3 50 H VBG O2 Saturation 81.0 VBG Base Excess 24.1 Sodium 146 H Potassium 3.8 Chloride 97 Carbon Dioxide 35 H Anion Gap 18 BUN 56 H Creatinine 1.58 H Estim Creat Clear Calc 45.3 Estimated GFR 32 POC Glucose Random Glucose 256 H Calcium 9.1 Phosphorus 3.6 Magnesium 1.9 Albumin 3.6 Procalcitonin 0.32 Microbiology Microbiology Results: Microbiology 08/10/22 11:41 Blood - Venous Blood Culture - Preliminary No growth after 48 hours. 08/10/22 10:46 Blood - Venous Blood Culture - Preliminary No growth after 48 hours. Progress Note: A&P Assessment and plan (1) CORINNA (acute kidney injury): Status: Acute (2) Cardiac arrest: Status: Acute (3) Acute on chronic respiratory failure with hypoxia and hypercapnia: Status: Acute (4) Volume overload: Status: Acute (5) Acute on chronic right-sided heart failure: Status: Acute (6) Acute on chronic diastolic (congestive) heart failure: Status: Acute (7) COPD (chronic obstructive pulmonary disease): Status: Acute (8) Supplemental oxygen dependent: Status: Acute (9) Chronic atrial fibrillation: Status: Acute (10) T2DM (type 2 diabetes mellitus): Status: Acute Plan Assessment: 72-year-old lady with underlying advanced diastolic congestive heart failure with multiple admissions for heart failure exacerbation admitted with heart failure exacerbation with hospital course complicated by hypoxic episode resulting in bradycardia and asystolic cardiac arrest with successful resuscitation Plan: Neuro: No acute issues. Cardiac: Cardiac arrest secondary to hypoxia with bradycardia/asystole with CPR started immediately and successful resuscitation. Continue to titrate of pressor support as tolerated. 2D echocardiogram is pending. Cardiology service care appreciated. Underlying advanced diastolic congestive heart failure. Improving with diuresis. Continue on digoxin and amiodarone for rate control of AFib with RVR. Pulmonary: Acute hypoxic respiratory failure, intubated during the CPR. Continue to titrate off ventilatory support as tolerated. Underlying MELANIE. Renal: Acute kidney injury on the background of congestive heart failure exacerbation. Non oliguric. Continue to monitor renal indices and urine output. Endo: No acute issues. Underlying diabetes mellitus on subcutaneous insulin protocol. GI: Coffee-ground aspirate on placement of for OG-tube on the background of post CPR and recent Xarelto use. Gastroenterology service care appreciated. Will monitor clinically at this time. Continue PPI. ID: No acute issues Heme/Onc: No acute issues. Psych: No acute issues. Miscellaneous: No acute issues. Prophylaxis: Pneumatic compression, ppi Diet: Tube feeds Critical care time spent: 45 minutes Quality Stroke Does the patient have a stroke diagnosis?: No VTE Prior VTE?: No VTE Risk Level:: Medical - moderate - high VTE Device Contraindication: Treatment Not Indicated VTE Drug Contraindication: N/A - Med Ordered
[2022-08-15 11:57] LABS: Glucose, Whole Blood 267 mg/dL (60-115)
--- NOTE | 2022-08-15 12:10 | PM.PNCARD ---
Subjective Subjective Date of Service: 08/15/22 Principal diagnosis: decompensated congestive heart failure, atrial fibrillation. Interval history: Patient remains in atrial fibrillation slightly rapid ventricular response blood pressure is stable. Continues to have hypoxic respiratory failure. Continues to have low-grade temperature. Currently on low-dose sedation with fentanyl. Currently on amiodarone drip as well as receiving IV digoxin load, 1st dose given. Renal function creatinine 1.5. Diuresing adequately Review of Systems Review of Systems Yes unobtainable due to endotracheal tube Physical Exam Vital Signs: Last Vital Signs Temp 100.6 F H 08/15/22 12:00 Pulse 114 H 08/15/22 12:00 Resp 19 08/15/22 12:00 BP 126/52 L 08/15/22 12:00 Pulse Ox 89 L 08/15/22 12:00 O2 Del Method 08/15/22 12:00 O2 Flow Rate 4 08/12/22 11:17 FiO2 60 08/15/22 12:00 Oxygen Flow Rate 3 08/10/22 09:54 BMI result Body Mass Index 48.8 Neck Neck: Yes trachea midline, Yes supple and Yes JVD Resp Effort & Inspection: normal respiratory effort Auscultation: no rales and no wheezes Cardio Rate: tachycardic Rhythm: abnormal rhythm irregularly irregular Heart sounds: S1 normal heart sound present and S2 normal heart sound present GI Inspection: Yes obesity Auscultation: normal bowel sounds Skin General skin exam: no rashes or lesions noted and ecchymosis Neuro General: no focal motor deficits Extrem General: No clubbing, No cyanosis and Yes edema Objective Labs and Meds 08/15/22 05:00 08/15/22 05:00 Lab results: Laboratory Results - last 24 hr 08/14/22 08/14/22 08/14/22 11:56 13:44 18:11 WBC RBC Hgb Hct MCV MCH MCHC RDW Plt Count MPV Immature Gran % (Auto) Neut % (Auto) Lymph % (Auto) [place] % (Auto) Eos % (Auto) Baso % (Auto) Lymph # (Auto) [place] # (Auto) Eos # (Auto) Baso # (Auto) Abs Immat Gran (auto) Absolute Neuts (auto) Absolute Nucleated RBC Nucleated RBC % (auto) Smear Tech's Comments VBG pH VBG pCO2 VBG pO2 VBG HCO3 VBG O2 Saturation VBG Base Excess Sodium 145 Potassium 3.2 L Chloride 96 Carbon Dioxide 33 H Anion Gap 19 BUN 57 H Creatinine 1.51 H Estim Creat Clear Calc 47.3 Estimated GFR 34 POC Glucose 232 H 259 H Random Glucose 248 H Calcium 9.4 Phosphorus Magnesium Albumin Procalcitonin 08/14/22 08/15/22 08/15/22 21:59 00:26 05:00 WBC 15.0 H RBC 2.80 L Hgb 8.5 L Hct 27.0 L MCV 96.4 MCH 30.4 MCHC 31.5 RDW 19.3 H Plt Count 199 MPV 8.7 L Immature Gran % (Auto) 1.1 H Neut % (Auto) 78.2 H Lymph % (Auto) 7.3 L [place] % (Auto) 12.2 H Eos % (Auto) 0.7 Baso % (Auto) 0.5 Lymph # (Auto) 1.1 L [place] # (Auto) 1.8 H Eos # (Auto) 0.1 Baso # (Auto) 0.1 Abs Immat Gran (auto) 0.17 H Absolute Neuts (auto) 11.7 H Absolute Nucleated RBC 0.000 Nucleated RBC % (auto) 0.0 Smear Tech's Comments VERIFIED VBG pH VBG pCO2 VBG pO2 VBG HCO3 VBG O2 Saturation VBG Base Excess Sodium 144 Potassium 3.2 L Chloride 98 Carbon Dioxide 37 H Anion Gap 12 BUN 57 H Creatinine 1.57 H Estim Creat Clear Calc 45.6 Estimated GFR 32 POC Glucose 263 H Random Glucose 264 H Calcium 9.1 Phosphorus Magnesium Albumin Procalcitonin 08/15/22 08/15/22 08/15/22 05:00 05:00 05:07 WBC RBC Hgb Hct MCV MCH MCHC RDW Plt Count MPV Immature Gran % (Auto) Neut % (Auto) Lymph % (Auto) [place] % (Auto) Eos % (Auto) Baso % (Auto) Lymph # (Auto) [place] # (Auto) Eos # (Auto) Baso # (Auto) Abs Immat Gran (auto) Absolute Neuts (auto) Absolute Nucleated RBC Nucleated RBC % (auto) Smear Tech's Comments VBG pH 7.48 H VBG pCO2 67 VBG pO2 54 VBG HCO3 50 H VBG O2 Saturation 81.0 VBG Base Excess 24.1 Sodium 146 H Potassium 3.8 Chloride 97 Carbon Dioxide 35 H Anion Gap 18 BUN 56 H Creatinine 1.58 H Estim Creat Clear Calc 45.3 Estimated GFR 32 POC Glucose Random Glucose 256 H Calcium 9.1 Phosphorus 3.6 Magnesium 1.9 Albumin 3.6 Procalcitonin 0.32 08/15/22 11:54 WBC RBC Hgb Hct MCV MCH MCHC RDW Plt Count MPV Immature Gran % (Auto) Neut % (Auto) Lymph % (Auto) [place] % (Auto) Eos % (Auto) Baso % (Auto) Lymph # (Auto) [place] # (Auto) Eos # (Auto) Baso # (Auto) Abs Immat Gran (auto) Absolute Neuts (auto) Absolute Nucleated RBC Nucleated RBC % (auto) Smear Tech's Comments VBG pH VBG pCO2 VBG pO2 VBG HCO3 VBG O2 Saturation VBG Base Excess Sodium Potassium Chloride Carbon Dioxide Anion Gap BUN Creatinine Estim Creat Clear Calc Estimated GFR POC Glucose 267 H Random Glucose Calcium Phosphorus Magnesium Albumin Procalcitonin Imaging Radiologist's impression: Impressions Chest X-Ray 08/15/22 02:51 IMPRESSION: 1. Endotracheal tube terminating 4 cm above the estephanie. 2. Small pleural effusions. Similar bibasilar opacities. This could represent atelectasis or pneumonia. Progress Note: A&P Assessment and plan (1) Acute exacerbation of congestive heart failure: Status: Acute Assessment and Plan: Patient admitted with marked fluid overload at predominant right heart failure but diastolic dysfunction. Patient remains fluid overloaded. Has a component of cardiorenal syndrome as well as CORINNA probably related renal hypoperfusion from cardiac arrest. Continue IV diuresis. Overall prognosis extremely guarded. Continue rate control, see below. Supportive care. Patient developing low-grade fever and continued oxygen requirement may be another pulmonary parenchyma process being worked up. Currently on antibiotics. (2) Chronic atrial fibrillation: Status: Acute Assessment and Plan: Chronic atrial fibrillation, not well rate controlled. Probably due to some amount of metabolic demand. Has failed rhythm control approach in the past. Currently using amiodarone for just rate control. Agree with digoxin. Given the blood pressure is also improved can give IV metoprolol [id number] for better rate control. This will help with overall cardiac function. (3) Cardiac arrest: Status: Acute Assessment and Plan: Status post cardiac arrest, appears to be more pulseless electrical activity significant bradycardia related to hypoxemia. No recurrence since then. Continue rate control as above. No need for pacing therapy. Will continue to follow with you Time Spent With Patient Time: Total time managing care of this patient today ____ minutes. Progress Note: Quality Stroke Does the patient have a stroke diagnosis?: No Procedures Date of Service Date of Service: 08/15/22
[2022-08-15] MEDS: Norepinephrine Bitartrate/D5W 8 MG/250 ML PLAST..BAG 72.08 MG IV (12:23)
[2022-08-15] MEDS: Norepinephrine Bitartrate/D5W 8 MG/250 ML PLAST..BAG 61.79 MG IV (15:54)
[2022-08-15 17:49] LABS: Anion Gap 14 (12-20); Blood Urea Nitrogen 47 mg/dL (9-16); Calcium 8.1 mg/dL (8.4-10.2); Carbon Dioxide 36 mmol/L (22-29); Chloride 101 mmol/L (96-108); Creatinine Clr Calc Pharmacy 54.6; Estimated Glomerular Filt Rate 40; Glucose Random 252 mg/dL (60-115); Potassium 2.6 mmol/L (3.3-5.1); Sodium 148 mmol/L (135-145)
[2022-08-15 18:30] LABS: Glucose, Whole Blood 235 mg/dL (60-115)
--- NOTE | 2022-08-15 18:56 | PC.NURSE ---
PROPOFOL GTT STOPPED PER MD, INITIATING SEDATION VACATION. SEE EMAR. AMIODORONE GTT STOPPED PER MD, SEE EMAR.
[2022-08-15] MEDS: Norepinephrine Bitartrate/D5W 8 MG/250 ML PLAST..BAG 56.64 MG IV (19:56)
[2022-08-15 23:27] LABS: Glucose, Whole Blood 271 mg/dL (60-115)
[2022-08-16] VITALS (32 sets, daily range): BP systolic 90–140; BP diastolic 46–81; PULSE 90–129; RESP 13–23; TEMP 34.8–39; O2SAT 89–99
[2022-08-16] MEDS: fentaNYL citrate/NS 1,000 MCG/100 ML PLAST..BAG 5 MCG IVCONT ×2 (00:12→19:19)
[2022-08-16] MEDS: Norepinephrine Bitartrate/D5W 8 MG/250 ML PLAST..BAG 56.64 MG IV ×4 (00:16→13:39)
[2022-08-16 01:11] LABS: Anion Gap 15 (12-20); Blood Urea Nitrogen 49 mg/dL (9-16); Calcium 8.8 mg/dL (8.4-10.2); Carbon Dioxide 40 mmol/L (22-29); Chloride 97 mmol/L (96-108); Creatinine Clr Calc Pharmacy 46.8; Estimated Glomerular Filt Rate 33; Glucose Fasting 296 mg/dL (60-99); Potassium 3.2 mmol/L (3.3-5.1); Sodium 149 mmol/L (135-145)
[2022-08-16] MEDS: acetaZOLAMIDE sodium 500 MG VIAL IVPUSH ×3 (01:38→21:07)
[2022-08-16] MEDS: Potassium Chloride/H20 40 MEQ/100 ML PIGGYBACK 50 MEQ IV (01:39)
[2022-08-16] MEDS: Potassium Chloride Packet 20 MEQ PACKET 40 MEQ PO ×2 (01:52→21:28)
[2022-08-16] MEDS: Metoprolol Tartrate 5 MG/5 ML VIAL IVPUSH ×2 (02:27→21:17)
[2022-08-16] MEDS: Acetaminophen 325 MG TABLET 650 MG PO (03:22)
[2022-08-16] MEDS: Piperacillin Sodium/Tazobactam 3.375 GM in 0.9 % Sodium Chloride 50 ML IV ×4 (03:32→21:08)
[2022-08-16] MEDS: Potassium Chloride/H20 40 MEQ/100 ML PIGGYBACK 100 MEQ IV ×4 (03:51→15:39)
[2022-08-16 05:27] LABS: VBG Base Excess 20.9 mmol/L; VBG HCO3 46 mmol/L (22-26); VBG pCO2 57 mmHg; VBG pH 7.51 (7.32-7.43); VBG pO2 49 mmHg
[2022-08-16 05:29] LABS: MANUAL DIFF FLAG NO
[2022-08-16 05:31] LABS: Glucose, Whole Blood 280 mg/dL (60-115)
[2022-08-16 05:31] LABS: Basophils Absolute Auto 0.1 X10*3/uL (0.0-0.2); Basophils Percent Auto 0.3 % (0-2); Eosinophils Absolute Auto 0.1 X10*3/uL (0.0-0.4); Eosinophils Percent Auto 0.5 % (0-4); Hematocrit 28.2 % (37.0-47.0); Hemoglobin 8.6 g/dl (12.0-16.0); Imm Gran Abs Auto 0.11 X10*3/uL (0.00-0.03); Imm Gran Pct Auto 0.7 % (0.0-0.4); Lymphocytes Absolute Auto 0.8 X10*3/uL (1.2-4.9); Mean Corpuscular HGB Conc 30.5 g/dl (31.0-35.0); Mean Corpuscular Hemoglobin 30.3 pg (27.0-33.0); Mean Corpuscular Volume 99.3 fL (80.0-98.0); Mean Platelet Volume 8.5 fL (9.4-12.3); Monocytes Absolute Auto 1.5 X10*3/uL (0.1-1.2); Monocytes Percent Auto 9.5 % (2-11); NRBC Pct Auto 0.1 /100WBC (0.0-0.2); Neutrophils Absolute Auto 12.9 x10*3/uL (2.0-8.3); Platelet Count 186 X10*3/uL (160-400); Red Blood Count 2.84 X10*6/uL (4.20-5.50); Red Cell Distribution Width 19.3 % (11.0-16.0); White Blood Count 15.3 X10*3/uL (4.8-10.8)
[2022-08-16 05:55] LABS: Alanine Aminotransferase 21 U/L (0-31); Albumin Level 3.4 g/dL (3.5-5.0); Alkaline Phosphatase 87 U/L (39-117); Anion Gap 16 (12-20); Aspartate Amino Transferase 45 U/L (5-31); Bilirubin Total 3.9 mg/dL (0.0-1.0); Blood Urea Nitrogen 49 mg/dL (9-16); Calcium 8.9 mg/dL (8.4-10.2); Carbon Dioxide 40 mmol/L (22-29); Chloride 98 mmol/L (96-108); Creatinine Clr Calc Pharmacy 44.1; Estimated Glomerular Filt Rate 31; Glucose Random 313 mg/dL (60-115); Magnesium 1.7 mg/dL (1.6-2.6); Phosphorus 2.6 mg/dL (2.7-4.5); Potassium 3.9 mmol/L (3.3-5.1); Sodium 150 mmol/L (135-145); Total Protein 5.9 g/dL (6.5-8.0)
[2022-08-16 05:57] LABS: Venous Blood Gas Refer to POC result
[2022-08-16] MEDS: Insulin Lispro 100 UNIT/ML 3 ML VIAL SUBCUT ×3 (06:17→19:16)
[2022-08-16] MEDS: 0.9 % Sodium Chloride Flush 3 ML SYRINGE IVFLUSH ×2 (07:47→15:39)
[2022-08-16] MEDS: Sucralfate Oral Suspension 1 GM/10 ML ORAL.SUSP PO ×2 (09:02→21:08)
[2022-08-16] MEDS: Bumetanide 1 MG/4 ML VIAL IVPUSH ×2 (09:02→17:11)
[2022-08-16] MEDS: Nystatin Powder 15 GM BOTTLE 1 APPL TOPICAL ×2 (09:04→22:49)
[2022-08-16] MEDS: Potassium Phosphate/NS 15 MMOL/250 ML PLAST..BAG 62.5 MMOL IV (09:17)
--- NOTE | 2022-08-16 09:54 | P.PNCC_ITS ---
Subjective Subjective Date of Service: 08/16/22 Interval History: 72-year-old lady with underlying history of morbid obesity, AFib, multiple admissions for exacerbation of underlying chronic diastolic congestive heart failure secondary to poor compliance with ambulatory diuretic regimen, COPD, diabetes mellitus admitted on 08/10/2022 with dyspnea and acute hypoxic respiratory failure secondary to exacerbation of underlying chronic diastolic congestive heart failure with retainingof approximately 30 lb of water weight. Patient was admitted to general medical winkler and started on IV diuresis with some improvement. Hospital course significant for episode of profound hypoxemia on 08/12/2022 with ambulation resulting in bradycardia and asystolic cardiac arrest with CPR started immediately and return of spontaneous circulation achieved after 6 minutes of CPR. Patient was intubated during the CPR. Patient has sustained 2nd and brief cardiac arrest up to 1 minute while being transp orted to the intensive care unit, also with successful resuscitation No events overnight. Further improvement in encephalopathy. Critical Care Time (minutes): 45 Physical Exam Vital Signs: Vital Signs: Last Vital Signs Temp 98.2 F 08/16/22 09:00 Pulse 102 H 08/16/22 09:00 Resp 13 08/16/22 09:00 BP 90/46 L 08/16/22 09:00 Pulse Ox 93 08/16/22 09:00 O2 Del Method 08/16/22 09:00 O2 Flow Rate 4 08/12/22 11:17 FiO2 60 08/16/22 09:00 Oxygen Flow Rate 3 08/10/22 09:54 BMI result Body Mass Index 48.8 Const: General: no acute distress Nutritional Appearance: obese Eyes: Sclerae: sclerae normal EOM: EOMs intact bilaterally Neck: Neck: Yes no lymphadenopathy, Yes trachea midline and Yes supple Resp: Auscultation: crackles ( Mild bilateral) Cardio: Rate: tachycardic Rhythm: abnormal rhythm irregularly irregular Heart sounds: no gallops, no murmurs and no rubs GI: Palpation (GI): Soft to palpation and Other GI palpation findings present ( Nontender) Auscultation: normal bowel sounds Extrem: General: No clubbing, No cyanosis and Yes edema ( trace bilateral) Objective Data Labs 08/16/22 05:20 08/16/22 05:20 Labs: Laboratory Results - last 24 hr 08/15/22 08/15/22 08/15/22 11:54 16:51 18:24 WBC RBC Hgb Hct MCV MCH MCHC RDW Plt Count MPV Immature Gran % (Auto) Neut % (Auto) Lymph % (Auto) [place] % (Auto) Eos % (Auto) Baso % (Auto) Lymph # (Auto) [place] # (Auto) Eos # (Auto) Baso # (Auto) Abs Immat Gran (auto) Absolute Neuts (auto) Absolute Nucleated RBC Nucleated RBC % (auto) VBG pH VBG pCO2 VBG pO2 VBG HCO3 VBG O2 Saturation VBG Base Excess Sodium 148 H Potassium 2.6 L D Chloride 101 Carbon Dioxide 36 H Anion Gap 14 BUN 47 H Creatinine 1.31 Estim Creat Clear Calc 54.6 Estimated GFR 40 POC Glucose 267 H 235 H Random Glucose 252 H Fasting Glucose Calcium 8.1 L D Phosphorus Magnesium Total Bilirubin AST ALT Alkaline Phosphatase Total Protein Albumin 08/15/22 08/16/22 08/16/22 23:16 00:33 05:20 WBC 15.3 H RBC 2.84 L Hgb 8.6 L Hct 28.2 L MCV 99.3 H MCH 30.3 MCHC 30.5 L RDW 19.3 H Plt Count 186 MPV 8.5 L Immature Gran % (Auto) 0.7 H Neut % (Auto) 84.0 H Lymph % (Auto) 5.0 L [place] % (Auto) 9.5 Eos % (Auto) 0.5 Baso % (Auto) 0.3 Lymph # (Auto) 0.8 L [place] # (Auto) 1.5 H Eos # (Auto) 0.1 Baso # (Auto) 0.1 Abs Immat Gran (auto) 0.11 H Absolute Neuts (auto) 12.9 H Absolute Nucleated RBC 0.020 H Nucleated RBC % (auto) 0.1 VBG pH VBG pCO2 VBG pO2 VBG HCO3 VBG O2 Saturation VBG Base Excess Sodium 149 H Potassium 3.2 L D Chloride 97 Carbon Dioxide 40 H* Anion Gap 15 BUN 49 H Creatinine 1.53 H Estim Creat Clear Calc 46.8 Estimated GFR 33 POC Glucose 271 H Random Glucose Fasting Glucose 296 H Calcium 8.8 D Phosphorus Magnesium Total Bilirubin AST ALT Alkaline Phosphatase Total Protein Albumin 08/16/22 08/16/22 08/16/22 05:20 05:21 05:26 WBC RBC Hgb Hct MCV MCH MCHC RDW Plt Count MPV Immature Gran % (Auto) Neut % (Auto) Lymph % (Auto) [place] % (Auto) Eos % (Auto) Baso % (Auto) Lymph # (Auto) [place] # (Auto) Eos # (Auto) Baso # (Auto) Abs Immat Gran (auto) Absolute Neuts (auto) Absolute Nucleated RBC Nucleated RBC % (auto) VBG pH 7.51 H VBG pCO2 57 VBG pO2 49 VBG HCO3 46 H VBG O2 Saturation 78.0 VBG Base Excess 20.9 Sodium 150 H Potassium 3.9 D Chloride 98 Carbon Dioxide 40 H* Anion Gap 16 BUN 49 H Creatinine 1.62 H Estim Creat Clear Calc 44.1 Estimated GFR 31 POC Glucose 280 H Random Glucose 313 H Fasting Glucose Calcium 8.9 Phosphorus 2.6 L Magnesium 1.7 Total Bilirubin 3.9 H AST 45 H ALT 21 Alkaline Phosphatase 87 Total Protein 5.9 L Albumin 3.4 L Microbiology Microbiology Results: Microbiology 08/10/22 11:41 Blood - Venous Blood Culture - Final No growth after 5 days. 08/10/22 10:46 Blood - Venous Blood Culture - Final No growth after 5 days. Progress Note: A&P Assessment and plan (1) Cardiac arrest: Status: Acute (2) Acute on chronic respiratory failure with hypoxia and hypercapnia: Status: Acute (3) Volume overload: Status: Acute (4) Acute on chronic diastolic (congestive) heart failure: Status: Acute (5) Acute on chronic right-sided heart failure: Status: Acute (6) Chronic atrial fibrillation: Status: Acute (7) COPD (chronic obstructive pulmonary disease): Status: Acute (8) T2DM (type 2 diabetes mellitus): Status: Acute (9) MELANIE (obstructive sleep apnea): Status: Acute (10) Morbid obesity: Status: Acute Plan Assessment: 72-year-old lady with underlying advanced diastolic congestive heart failure with multiple admissions for heart failure exacerbation admitted with heart failure exacerbation with hospital course complicated by hypoxic episode resulting in bradycardia and asystolic cardiac arrest with successful resuscitation Plan: Neuro: No acute issues. Cardiac: Cardiac arrest secondary to hypoxia with bradycardia/asystole with CPR started immediately and successful resuscitation. Continue to titrate of pressor support as tolerated. 2D echocardiogram is pending. Cardiology service care appreciated. Underlying advanced diastolic congestive heart failure. Improving with diuresis. Continue on digoxin for rate control of AFib with RVR. Improving significantly with diuresis. Pulmonary: Acute hypoxic respiratory failure, intubated during the CPR. Continue to titrate off ventilatory support as tolerated. Underlying MELANIE. Renal: Acute kidney injury on the background of congestive heart failure exacerbation. Non oliguric. Continue to monitor renal indices and urine output. Endo: No acute issues. Underlying diabetes mellitus on subcutaneous insulin protocol. GI: Coffee-ground aspirate on placement of for OG-tube on the background of post CPR and recent Xarelto use. Gastroenterology service care appreciated. Will monitor clinically at this time. Continue PPI. ID: No acute issues Heme/Onc: No acute issues. Psych: No acute issues. Miscellaneous: No acute issues. Prophylaxis: Pneumatic compression, ppi Diet: Tube feeds Critical care time spent: 45 minutes Quality Stroke Does the patient have a stroke diagnosis?: No VTE Prior VTE?: No VTE Risk Level:: Medical - moderate - high VTE Device Contraindication: Treatment Not Indicated VTE Drug Contraindication: N/A - Med Ordered
--- NOTE | 2022-08-16 10:22 | MHC.CLN ---
F/U PT REMAINS INTUBATED DISCUSSED AT ROUNDS WITH MD RECOMMEND GLUCERNA AT MAX GOAL RATE 55ML/HR WITH 120ML FREE WATER FLUSHES Q 8 HRS TO PROVIDE 1320KCALS (23KCALS/KG BASED ON IBW), 55G PROTEIN (.9G/KG), 1485ML TOTAL FREE WATER FROM FORMULA AND FLUSHES (25KCALS/KG BASED ON IBW) MONITOR TOLERANCE, RESIDUALS AND LYTES
--- NOTE | 2022-08-16 10:29 | P.PNCA_ITS ---
Subjective Subjective Date of Service: 08/16/22 Principal diagnosis: decompensated congestive heart failure, atrial fibrillation. Interval history: Remains intubated. Diuresing very well. Heart rate as improved, blood pressures improved. Currently off sedation and opening her eyes but not following commands. Still requiring high levels of oxygen. No febrile episodes. No overt bleeding. Review of Systems Review of Systems Yes unobtainable due to endotracheal tube Physical Exam Vital Signs: Last Vital Signs Temp 98.1 F 08/16/22 10:00 Pulse 100 08/16/22 10:00 Resp 15 08/16/22 10:00 BP 125/73 08/16/22 10:00 Pulse Ox 94 08/16/22 10:00 O2 Del Method 08/16/22 10:00 O2 Flow Rate 4 08/12/22 11:17 FiO2 60 08/16/22 10:00 Oxygen Flow Rate 3 08/10/22 09:54 BMI result Body Mass Index 48.8 Const Nutritional Appearance: other (Intubated, opening eyes) Neck Neck: Yes trachea midline, Yes supple and Yes no JVD Resp Effort & Inspection: other (Positive-pressure ventilation) Auscultation: no rales and diminished lung sounds Cardio Jugular venous distension: no JVD Rhythm: abnormal rhythm irregularly irregular Heart sounds: S1 normal heart sound present, S2 normal heart sound present, no click, no gallops and no murmurs Skin General skin exam: ecchymosis Extrem General: No clubbing, No cyanosis and Yes edema (Significantly improved) Objective Labs and Meds 08/16/22 05:20 08/16/22 05:20 Lab results: Laboratory Results - last 24 hr 08/15/22 08/15/22 08/15/22 11:54 16:51 18:24 WBC RBC Hgb Hct MCV MCH MCHC RDW Plt Count MPV Immature Gran % (Auto) Neut % (Auto) Lymph % (Auto) [place] % (Auto) Eos % (Auto) Baso % (Auto) Lymph # (Auto) [place] # (Auto) Eos # (Auto) Baso # (Auto) Abs Immat Gran (auto) Absolute Neuts (auto) Absolute Nucleated RBC Nucleated RBC % (auto) VBG pH VBG pCO2 VBG pO2 VBG HCO3 VBG O2 Saturation VBG Base Excess Sodium 148 H Potassium 2.6 L D Chloride 101 Carbon Dioxide 36 H Anion Gap 14 BUN 47 H Creatinine 1.31 Estim Creat Clear Calc 54.6 Estimated GFR 40 POC Glucose 267 H 235 H Random Glucose 252 H Fasting Glucose Calcium 8.1 L D Phosphorus Magnesium Total Bilirubin AST ALT Alkaline Phosphatase Total Protein Albumin 08/15/22 08/16/22 08/16/22 23:16 00:33 05:20 WBC 15.3 H RBC 2.84 L Hgb 8.6 L Hct 28.2 L MCV 99.3 H MCH 30.3 MCHC 30.5 L RDW 19.3 H Plt Count 186 MPV 8.5 L Immature Gran % (Auto) 0.7 H Neut % (Auto) 84.0 H Lymph % (Auto) 5.0 L [place] % (Auto) 9.5 Eos % (Auto) 0.5 Baso % (Auto) 0.3 Lymph # (Auto) 0.8 L [place] # (Auto) 1.5 H Eos # (Auto) 0.1 Baso # (Auto) 0.1 Abs Immat Gran (auto) 0.11 H Absolute Neuts (auto) 12.9 H Absolute Nucleated RBC 0.020 H Nucleated RBC % (auto) 0.1 VBG pH VBG pCO2 VBG pO2 VBG HCO3 VBG O2 Saturation VBG Base Excess Sodium 149 H Potassium 3.2 L D Chloride 97 Carbon Dioxide 40 H* Anion Gap 15 BUN 49 H Creatinine 1.53 H Estim Creat Clear Calc 46.8 Estimated GFR 33 POC Glucose 271 H Random Glucose Fasting Glucose 296 H Calcium 8.8 D Phosphorus Magnesium Total Bilirubin AST ALT Alkaline Phosphatase Total Protein Albumin 08/16/22 08/16/22 08/16/22 05:20 05:21 05:26 WBC RBC Hgb Hct MCV MCH MCHC RDW Plt Count MPV Immature Gran % (Auto) Neut % (Auto) Lymph % (Auto) [place] % (Auto) Eos % (Auto) Baso % (Auto) Lymph # (Auto) [place] # (Auto) Eos # (Auto) Baso # (Auto) Abs Immat Gran (auto) Absolute Neuts (auto) Absolute Nucleated RBC Nucleated RBC % (auto) VBG pH 7.51 H VBG pCO2 57 VBG pO2 49 VBG HCO3 46 H VBG O2 Saturation 78.0 VBG Base Excess 20.9 Sodium 150 H Potassium 3.9 D Chloride 98 Carbon Dioxide 40 H* Anion Gap 16 BUN 49 H Creatinine 1.62 H Estim Creat Clear Calc 44.1 Estimated GFR 31 POC Glucose 280 H Random Glucose 313 H Fasting Glucose Calcium 8.9 Phosphorus 2.6 L Magnesium 1.7 Total Bilirubin 3.9 H AST 45 H ALT 21 Alkaline Phosphatase 87 Total Protein 5.9 L Albumin 3.4 L Progress Note: A&P Assessment and plan (1) Acute exacerbation of congestive heart failure: Status: Acute Assessment and Plan: Acute heart failure admission, with marked fluid overload. Has had-21 L of diuresis. Agree with bolus Bumex. Continue strict intake and output chart. Notices hypernatremia probably due to free water loss. Can replace gently through NG tube. Continue rate control as below. Continue to monitor renal function and replace potassium. Hypoxia appears to be out of proportion to heart failure. Consider other etiology. Overall prognosis remains guarded. Continue Jardiance. Will sign of the case at this point in time (2) Chronic atrial fibrillation: Status: Acute Assessment and Plan: Chronic atrial fibrillation the past has failed rhythm control. Start metoprolol [id number] 2.5 mg q.6 hours. Continue to maintain heart rate between 60 and 80 beats per minute if possible. If there are no obvious bleeding issues restart oral anticoagulation Xarelto at 15 mg. (3) Cardiac arrest: Status: Acute Assessment and Plan: Cardiac arrest appears to be secondary to hypoxemia. No need for pacing at this point in time. Continue to monitor by full telemetry. Continue treat underlying heart failure. (4) Acute on chronic respiratory failure with hypoxia and hypercapnia: Status: Acute Assessment and Plan: Acute persistent hypoxic respiratory failure requiring high levels of oxygen despite aggressive diuresis. Consider alternative etiology. Will sign of the case. Please re-consult us if need be Time Spent With Patient Time: Total time managing care of this patient today ____ minutes. Progress Note: Quality Stroke Does the patient have a stroke diagnosis?: No Procedures Date of Service Date of Service: 08/16/22
[2022-08-16] MEDS: Insulin Glargine,Hum.rec.anlog 100 UNIT/ML 10 ML VIAL 30 UNIT SUBCUT (11:05)
--- NOTE | 2022-08-16 11:38 | P.CDIC_ITS ---
CDI Concurrent Query Documentation Clarification: PHYSICIAN'S DOCUMENTATION REQUEST Date of Query: 08/16/22 1138 Patient Name: Ragini Little Admit Date: 08/10/22 Dear Doctor, A review of the medical record indicates additional documentation may be needed. Please review below and update the documentation accordingly. Clinical Indicators: Is there a diagnosis that correlates with the findings below: Risk Factors/Clinical Indicators/Treatments POA/RESOLVED/TREAT/RULE OUT Per provider progress note on 08/16: Coffee-ground aspirate on placement of for OG- tube on the background of post CPR and recent Xarelto use. Per chest x-ray on 08/15: Small pleural effusions. Similar bibasilar opacities. This could represent atelectasis or pneumonia. Other indicators & risk factors: -Patient requiring intubation -Patient being treated for ARF & CHF exa cerbation -Post cardiac arrest Based on the above, could you clarify in the Progress Notes further specificity regarding the most likely type of pneumonia you suspect you are treating (even if specific organism may not be known)? * Aspiration pneumonia * Other type * Unable to determine Use of terms such as suspected, likely, concern for, or probable (associated w ith a specific diagnosis that is being evaluated, monitored, or treated as if it exists) are acceptable and can be coded in the inpatient setting, when documented at the time of discharge. Thank you, Teodora Shah, MS, RN, CCRN Extension: [phone] Please use your independent medical judgment in providing your response. THIS QUERY IS PART OF THE PERMANENT MEDICAL RECORD Provider Response: Other (Likely aspiration pneumonitis with cardiac arrest) Other Diagnosis: Likely aspiration pneumonitis with cardiac arrest
[2022-08-16] MEDS: Magnesium Sulfate/H2O 2 GM/50 ML PIGGYBACK IV (11:53)
--- NOTE | 2022-08-16 11:53 | P.CDIC_ITS ---
CDI Concurrent Query Documentation Clarification: PHYSICIAN'S DOCUMENTATION REQUEST Date of Query: 08/16/22 1154 Patient Name: Ragini Little Admit Date: 08/10/22 Dear Doctor, A review of the medical record indicates additional documentation may be needed. Please review below and update the documentation accordingly. Clinical Indicators: The diagnosis of GI hemorrhage was documented on 08/13/22 by GI but is not consistently noted in subsequent documentation. Please confirm/rule out this diagnosis based on the findings below: Risk Factors/Clinical Indicators/Treatments Per provider progress note on 08/16: Coffee-ground aspirate on placement of for OG- tube on the background of post CPR and recent Xarelto use. Per GI consult on 08/13: Acute upper GI bleeding in the setting of cardiac arrest adn chest compression with last dose eliquis last night. most likely mucosal and trauma related bleeding, seems to have stopped now HGB from 11.5 g/dl on admission to 8.7 g/dl Please clarify the following: * GI hemorrhage is/was present * GI hemorrhage is still a likely, suspected, probable diagnosis * GI hemorrhage is/was ruled out * Other (please specify) * Unable to determine Use of terms such as suspected, likely, concern for, or probable (associated with a specific diagnosis that is being evaluated, monitored, or treated as if it exists) are acceptable and can be coded in the inpatient setting, when do cumented at the time of discharge. Thank you, Teodora Shah MS, RN, CCRN Extension: [phone] Please use your independent medical judgment in providing your response. THIS QUERY IS PART OF THE PERMANENT MEDICAL RECORD Provider Response: Other (Likely upper GI bleed during/right after the CPR on the background of prior Xarelto use) Other Diagnosis: Likely upper GI bleed during/right after the CPR on the background of prior Xarelto use
--- NOTE | 2022-08-16 11:59 | MHC.CM.PN ---
Pt on ventilatory support, Bumex gtt, pressors and Fentanyl: plans continue to focus on resolving encephalopathy for vent weaning. Pt will almost certainly require post acute care - referrals will be made once pt's functional abilities can be better assessed. CM to follow.
[2022-08-16 12:02] LABS: Glucose, Whole Blood 337 mg/dL (60-115)
[2022-08-16 12:52] LABS: Blood Urea Nitrogen 50 mg/dL (9-16); Calcium 8.8 mg/dL (8.4-10.2); Creatinine Clr Calc Pharmacy 45.6; Estimated Glomerular Filt Rate 32
[2022-08-16 13:10] LABS: Anion Gap 17 (12-20); Carbon Dioxide 40 mmol/L (22-29); Chloride 97 mmol/L (96-108); Glucose Random 373 mg/dL (60-115); Sodium 151 mmol/L (135-145)
[2022-08-16] MEDS: Norepinephrine Bitartrate/D5W 8 MG/250 ML PLAST..BAG 61.79 MG IV ×2 (17:28→21:07)
--- NOTE | 2022-08-16 17:39 | PC.NURSE ---
BUMEX GTT D/C IN AM, SEE EMAR. PATIENT SWITCHED TO SCHEDULED BUMEX IVP BY MD. URINE OUTPUT ROUGHLY 350ML/HR. POTASSIUM LOW, MULTIPLE RUNS OF 6 BEAT RUNS OF VTACH OBSSERVED AND CHARTED, MD AWARE. POTASSIUM PHOSPHATE 15 MEQ GIVEN, SEE EMAR. POTASSIUM CHLORIDE 40MEQ GIVEN X 3, SEE EMAR. MAGNESIUM 2G GIVEN, SEE EMAR. PATIENT ROTATED Q2HR, BATHED, FAMILY AND PATIENT UPDATED ON CURRENT HEALTH STATUS.
[2022-08-16 18:12] LABS: Glucose, Whole Blood 349 mg/dL (60-115)
[2022-08-16 20:32] LABS: Anion Gap 16 (12-20); Blood Urea Nitrogen 51 mg/dL (9-16); Calcium 8.9 mg/dL (8.4-10.2); Carbon Dioxide 39 mmol/L (22-29); Chloride 100 mmol/L (96-108); Creatinine Clr Calc Pharmacy 47.3; Estimated Glomerular Filt Rate 34; Glucose Random 386 mg/dL (60-115); Potassium 3.6 mmol/L (3.3-5.1); Sodium 151 mmol/L (135-145)
[2022-08-16] MEDS: Insulin Glargine,Hum.rec.anlog 100 UNIT/ML 10 ML VIAL 10 UNIT SUBCUT (21:07)
[2022-08-16] MEDS: Sodium,Potassium Phosphates POWD.PACK 2 PACKET PO (21:27)
[2022-08-16] MEDS: Magnesium Sulfate/D5W 1 GM/100 ML PIGGYBACK IV (21:28)
[2022-08-16 23:59] LABS: Glucose, Whole Blood 325 mg/dL (60-115)
[2022-08-17] VITALS (38 sets, daily range): BP systolic 93–135; BP diastolic 38–79; PULSE 92–123; RESP 14–24; TEMP 35–38.8; O2SAT 86–96
[2022-08-17] MEDS: Insulin Lispro 100 UNIT/ML 3 ML VIAL SUBCUT ×4 (00:07→18:36)
[2022-08-17] MEDS: 0.9 % Sodium Chloride Flush 3 ML SYRINGE IVFLUSH ×3 (00:08→15:54)
[2022-08-17] MEDS: Norepinephrine Bitartrate/D5W 8 MG/250 ML PLAST..BAG 66.93 MG IV (00:44)
[2022-08-17] MEDS: Acetaminophen 325 MG TABLET 650 MG PO ×2 (01:51→12:41)
[2022-08-17] MEDS: Piperacillin Sodium/Tazobactam 3.375 GM in 0.9 % Sodium Chloride 50 ML IV ×4 (04:10→22:02)
[2022-08-17] MEDS: Norepinephrine Bitartrate/D5W 8 MG/250 ML PLAST..BAG 61.79 MG IV ×2 (04:19→08:16)
[2022-08-17 05:28] LABS: VBG Base Excess 18.3 mmol/L; VBG HCO3 45 mmol/L (22-26); VBG pCO2 66 mmHg; VBG pH 7.44 (7.32-7.43); VBG pO2 50 mmHg
[2022-08-17 05:31] LABS: Venous Blood Gas Refer to POC result
--- NOTE | 2022-08-17 05:34 | PC.NURSE ---
asummed care at 1900, maintained on vent ac settings no respiratory issues overnight, bp stable on levo, afib on tele HR 120s 5mg iv lopressor given with good effect, T max 101.3 tylenol given and ice packs applied, cool bath given, temp down to 100.4, urine output greater than 150cc per hour, getting diamox as ordered, repo q2 hours
[2022-08-17 05:37] LABS: Basophils Absolute Auto 0.1 X10*3/uL (0.0-0.2); Basophils Percent Auto 0.3 % (0-2); Eosinophils Absolute Auto 0.3 X10*3/uL (0.0-0.4); Eosinophils Percent Auto 1.7 % (0-4); Hematocrit 28.7 % (37.0-47.0); Hemoglobin 8.4 g/dl (12.0-16.0); Imm Gran Abs Auto 0.12 X10*3/uL (0.00-0.03); Imm Gran Pct Auto 0.8 % (0.0-0.4); Lymphocytes Absolute Auto 0.8 X10*3/uL (1.2-4.9); Lymphocytes Percent Auto 5.8 % (20-40); MANUAL DIFF FLAG SCAN; Mean Corpuscular HGB Conc 29.3 g/dl (31.0-35.0); Mean Corpuscular Hemoglobin 29.7 pg (27.0-33.0); Mean Corpuscular Volume 101.4 fL (80.0-98.0); Mean Platelet Volume 9.1 fL (9.4-12.3); Monocytes Absolute Auto 1.6 X10*3/uL (0.1-1.2); Monocytes Percent Auto 11.4 % (2-11); NRBC Pct Auto 0.1 /100WBC (0.0-0.2); Neutrophils Absolute Auto 11.5 x10*3/uL (2.0-8.3); Platelet Count 188 X10*3/uL (160-400); Red Blood Count 2.83 X10*6/uL (4.20-5.50); Red Cell Distribution Width 19.2 % (11.0-16.0); SCAN SMEAR FLAG 1; White Blood Count 14.4 X10*3/uL (4.8-10.8)
[2022-08-17 05:57] LABS: Albumin Level 3.2 g/dL (3.5-5.0); Anion Gap 17 (12-20); Blood Urea Nitrogen 54 mg/dL (9-16); Calcium 8.7 mg/dL (8.4-10.2); Carbon Dioxide 40 mmol/L (22-29); Chloride 101 mmol/L (96-108); Creatinine Clr Calc Pharmacy 42.8; Estimated Glomerular Filt Rate 30; Glucose Random 365 mg/dL (60-115); Magnesium 2.2 mg/dL (1.6-2.6); Phosphorus 3.8 mg/dL (2.7-4.5); Potassium 3.5 mmol/L (3.3-5.1); Sodium 154 mmol/L (135-145)
[2022-08-17 05:58] LABS: SLIDE REVIEW VERIFIED
[2022-08-17] MEDS: acetaZOLAMIDE sodium 500 MG VIAL IVPUSH ×2 (08:06→21:50)
[2022-08-17] MEDS: Sucralfate Oral Suspension 1 GM/10 ML ORAL.SUSP PO ×2 (08:07→22:07)
[2022-08-17] MEDS: Insulin Glargine,Hum.rec.anlog 100 UNIT/ML 10 ML VIAL 30 UNIT SUBCUT (08:07)
[2022-08-17] MEDS: Bumetanide 1 MG/4 ML VIAL IVPUSH ×2 (08:07→17:21)
[2022-08-17] MEDS: Nystatin Powder 15 GM BOTTLE 1 APPL TOPICAL ×2 (08:08→21:37)
[2022-08-17] MEDS: fentaNYL citrate/PF 100 MCG/2 ML VIAL 50 MCG IVPUSH (09:08)
--- NOTE | 2022-08-17 09:44 | P.PNCC_ITS ---
Subjective Subjective Date of Service: 08/17/22 Interval History: 72-year-old lady with underlying history of morbid obesity, AFib, multiple admissions for exacerbation of underlying chronic diastolic congestive heart failure secondary to poor compliance with ambulatory diuretic regimen, COPD, diabetes mellitus admitted on 08/10/2022 with dyspnea and acute hypoxic respiratory failure secondary to exacerbation of underlying chronic diastolic congestive heart failure with retainingof approximately 30 lb of water weight. Patient was admitted to general medical [facility] and started on IV diuresis with some improvement. Hospital course significant for episode of profound hypoxemia on 08/12/2022 with ambulation resulting in bradycardia and asystolic cardiac arrest with CPR started immediately and return of spontaneous circulation achieved after 6 minutes of CPR. Patient was intubated during the CPR. Patient has sustained 2nd and brief cardiac arrest up to 1 minute while being transp orted to the intensive care unit, also with successful resuscitation. Now with prolonged encephalopathy. No events overnight. Critical Care Time (minutes): 45 Physical Exam Vital Signs: Vital Signs: Last Vital Signs Temp 100.4 F 08/17/22 09:00 Pulse 120 H 08/17/22 09:29 Resp 24 H 08/17/22 09:00 BP 128/67 08/17/22 09:29 Pulse Ox 90 L 08/17/22 09:00 O2 Del Method 08/17/22 09:00 O2 Flow Rate 4 08/12/22 11:17 FiO2 45 08/17/22 09:00 Oxygen Flow Rate 3 08/10/22 09:54 BMI result Body Mass Index 48.8 Const: General: no acute distress Nutritional Appearance: obese and Edematous Eyes: Sclerae: sclerae normal Neck: Neck: Yes no lymphadenopathy, Yes trachea midline and Yes supple Resp: Auscultation: crackles (Diffuse bilateral) Cardio: Rate: tachycardic Rhythm: abnormal rhythm irregularly irregular Heart sounds: no gallops, no murmurs and no rubs GI: Palpation (GI): Soft to palpation and Other GI palpation findings present ( Nontender) Auscultation: normal bowel sounds Extrem: General: No clubbing, No cyanosis and Yes edema (1+ bilateral) Objective Data Labs 08/17/22 05:15 08/17/22 05:15 Labs: Laboratory Results - last 24 hr 08/16/22 08/16/22 08/16/22 11:14 11:50 18:01 WBC RBC Hgb Hct MCV MCH MCHC RDW Plt Count MPV Immature Gran % (Auto) Neut % (Auto) Lymph % (Auto) [place] % (Auto) Eos % (Auto) Baso % (Auto) Lymph # (Auto) [place] # (Auto) Eos # (Auto) Baso # (Auto) Abs Immat Gran (auto) Absolute Neuts (auto) Absolute Nucleated RBC Nucleated RBC % (auto) Smear Tech's Comments VBG pH VBG pCO2 VBG pO2 VBG HCO3 VBG O2 Saturation VBG Base Excess Sodium 151 H Potassium 3.0 L D Chloride 97 Carbon Dioxide 40 H* Anion Gap 17 BUN 50 H Creatinine 1.57 H Estim Creat Clear Calc 45.6 Estimated GFR 32 POC Glucose 337 H 349 H Random Glucose 373 H* Calcium 8.8 Phosphorus Magnesium Albumin 08/16/22 08/16/22 08/17/22 19:51 23:43 05:15 WBC 14.4 H RBC 2.83 L Hgb 8.4 L Hct 28.7 L MCV 101.4 H MCH 29.7 MCHC 29.3 L RDW 19.2 H Plt Count 188 MPV 9.1 L Immature Gran % (Auto) 0.8 H Neut % (Auto) 80.0 H Lymph % (Auto) 5.8 L [place] % (Auto) 11.4 H Eos % (Auto) 1.7 Baso % (Auto) 0.3 Lymph # (Auto) 0.8 L [place] # (Auto) 1.6 H Eos # (Auto) 0.3 Baso # (Auto) 0.1 Abs Immat Gran (auto) 0.12 H Absolute Neuts (auto) 11.5 H Absolute Nucleated RBC 0.020 H Nucleated RBC % (auto) 0.1 Smear Tech's Comments VERIFIED VBG pH VBG pCO2 VBG pO2 VBG HCO3 VBG O2 Saturation VBG Base Excess Sodium 151 H Potassium 3.6 Chloride 100 Carbon Dioxide 39 H Anion Gap 16 BUN 51 H Creatinine 1.51 H Estim Creat Clear Calc 47.3 Estimated GFR 34 POC Glucose 325 H Random Glucose 386 H* Calcium 8.9 Phosphorus Magnesium Albumin 08/17/22 08/17/22 05:15 05:21 WBC RBC Hgb Hct MCV MCH MCHC RDW Plt Count MPV Immature Gran % (Auto) Neut % (Auto) Lymph % (Auto) [place] % (Auto) Eos % (Auto) Baso % (Auto) Lymph # (Auto) [place] # (Auto) Eos # (Auto) Baso # (Auto) Abs Immat Gran (auto) Absolute Neuts (auto) Absolute Nucleated RBC Nucleated RBC % (auto) Smear Tech's Comments VBG pH 7.44 H VBG pCO2 66 VBG pO2 50 VBG HCO3 45 H VBG O2 Saturation 76.0 VBG Base Excess 18.3 Sodium 154 H Potassium 3.5 Chloride 101 Carbon Dioxide 40 H* Anion Gap 17 BUN 54 H Creatinine 1.67 H Estim Creat Clear Calc 42.8 Estimated GFR 30 POC Glucose Random Glucose 365 H* Calcium 8.7 Phosphorus 3.8 Magnesium 2.2 Albumin 3.2 L Microbiology Microbiology Results: Microbiology 08/10/22 11:41 Blood - Venous Blood Culture - Final No growth after 5 days. 08/10/22 10:46 Blood - Venous Blood Culture - Final No growth after 5 days. Progress Note: A&P Assessment and plan (1) CORINNA (acute kidney injury): Status: Acute (2) Cardiac arrest: Status: Acute (3) Acute on chronic respiratory failure with hypoxia and hypercapnia: Status: Acute (4) Acute exacerbation of congestive heart failure: Status: Acute (5) (HFpEF) heart failure with preserved ejection fraction: Status: Acute (6) Chronic atrial fibrillation: Status: Acute (7) COPD (chronic obstructive pulmonary disease): Status: Acute (8) T2DM (type 2 diabetes mellitus): Status: Acute (9) Morbid obesity: Status: Acute (10) MELANIE (obstructive sleep apnea): Status: Acute (11) Aspiration pneumonitis: Status: Acute Plan Assessment: 72-year-old lady with underlying advanced diastolic congestive heart failure with multiple admissions for heart failure exacerbation admitted with heart failure exacerbation with hospital course complicated by hypoxic episode resulting in bradycardia and asystolic cardiac arrest with successful resuscitation Plan: Neuro: No acute issues. Cardiac: Cardiac arrest secondary to hypoxia with bradycardia/asystole with CPR started immediately and successful resuscitation. Continue to titrate of pressor support as tolerated. 2D echocardiogram is pending. Cardiology service care appreciated. Underlying advanced diastolic congestive heart failure. Im proving with diuresis. Continue on digoxin for rate control of AFib with RVR. Improving significantly with diuresis. Pulmonary: Acute hypoxic respiratory failure, intubated during the CPR, also with component of aspiration pneumonitis. Continue to titrate off ventilatory support as tolerated. Underlying MELANIE. Renal: Acute kidney injury on the background of congestive heart failure exacerbation. Non oliguric. Continue to monitor renal indices and urine output. Endo: No acute issues. Underlying diabetes mellitus on subcutaneous insulin protocol. GI: Coffee-ground aspirate on placement of for OG-tube on the background of post CPR and recent Xarelto use. Gastroenterology service care appreciated. Will monitor clinically at this time. Continue PPI. ID: Empirically covered for aspiration pneumonitis. Heme/Onc: No acute issues. Psych: No acute issues. Miscellaneous: No acute issues. Prophylaxis: Pneumatic compression, ppi Diet: Tube feeds Critical care time spent: 45 minutes Quality Stroke Does the patient have a stroke diagnosis?: No VTE Prior VTE?: No VTE Risk Level:: Medical - moderate - high VTE Device Contraindication: Treatment Not Indicated VTE Drug Contraindication: N/A - Med Ordered
[2022-08-17] MEDS: Potassium Chloride/H20 40 MEQ/100 ML PIGGYBACK 100 MEQ IV ×2 (11:34→12:40)
[2022-08-17] MEDS: Lactulose 20 GM/30 ML SOLUTION 30 GM PO ×2 (11:34→22:14)
[2022-08-17 11:44] LABS: Glucose, Whole Blood 319 mg/dL (60-115)
[2022-08-17] MEDS: fentaNYL citrate/NS 1,000 MCG/100 ML PLAST..BAG 7.5 MCG IVCONT (11:51)
[2022-08-17] MEDS: Metoprolol Tartrate 5 MG/5 ML VIAL IVPUSH (12:10)
[2022-08-17] MEDS: Norepinephrine Bitartrate/D5W 8 MG/250 ML PLAST..BAG 77.23 MG IV ×2 (13:03→21:35)
--- NOTE | 2022-08-17 14:05 | PC.NURSE ---
Assumed care at 07:00. Patient -4 to -3 RASS over course of day. No sedation vacation today due to patient being on higher dose levophed and with escalating levophed dose, also discussed sedation vacation with MD, and plan to try tomorrow. Patient with minimal gag, + cough, no commands followed, no questions replied to. positive pain response in all extremities, also grimaces with nonverbal signs of pain with any repositioning. Patient with bruising scattered throughout arms, but also to sternal chest area. Fentanyl gtt uptitirated related to pain and need for sedation, and MD aware, and patient also required PRN fentanyl this morning for turning and nursing hygiene care. Patient bathed around 830 am. Patient has escalating fever, from 100.8 up to 101.3, despite tylenol. Ice packs applied and continuing to monitor. Patient is on Zosyn. Appears to be having fevers each night, but now mild fever on days. Diabetic patient has had POCTs in the 300's since 12:00 on 08/16. Discussed with MD and Lantus order increased from 30 Units daily to 50 units daily. Patient continues on Levophed with increasing dose, failed downtitiration today and now increased from 0.22 to 0.32 today. Patient with afib with RVR on monitor at times, was administered one dose of IV lopressor 5 mg IVP at 1210 with good effect, HR brought down from 130 to 80's-90's. Patient with minimal edema, but noted +3 to right hand, restraints in place and adjusted to maintain looseness. Patient with no BM since 08/11, MD ordered lactulose, adminitered with results pending. Bowel sounds hypoactive throughout. OGT in place, and patient getting glucerna at max rate 55 cc/hour, well tolerated. Patient does have a very small amount of coffee-ground colored aspirate, which has been recurring for her. She had pink tinged and rust colored oral secretions, MD aware. Patient with 80 MeQ of IV KCL repletion today.
[2022-08-17] MEDS: Digoxin 0.5 MG/2 ML AMPUL 0.25 MG IVPUSH (15:06)
[2022-08-17] MEDS: Norepinephrine Bitartrate/D5W 8 MG/250 ML PLAST..BAG 82.38 MG IV ×2 (15:53→18:36)
[2022-08-17 18:24] LABS: Glucose, Whole Blood 340 mg/dL (60-115)
[2022-08-17 18:57] LABS: Anion Gap 15 (12-20); Blood Urea Nitrogen 58 mg/dL (9-16); Calcium 8.6 mg/dL (8.4-10.2); Carbon Dioxide 39 mmol/L (22-29); Chloride 103 mmol/L (96-108); Creatinine Clr Calc Pharmacy 40.9; Estimated Glomerular Filt Rate 28; Glucose Random 400 mg/dL (60-115); Potassium 3.8 mmol/L (3.3-5.1); Sodium 153 mmol/L (135-145)
[2022-08-17] MEDS: Insulin Regular, Human 100 UNIT/ML 3 ML VIAL 10 UNIT IVPUSH (19:08)
[2022-08-17] MEDS: Insulin Glargine,Hum.rec.anlog 100 UNIT/ML 10 ML VIAL 40 UNIT SUBCUT (22:02)
[2022-08-18] VITALS (32 sets, daily range): BP systolic 72–129; BP diastolic 26–60; PULSE 81–128; RESP 12–27; TEMP 33.6–39.1; O2SAT 88–95
[2022-08-18] MEDS: Insulin Lispro 100 UNIT/ML 3 ML VIAL SUBCUT ×5 (00:14→23:32)
[2022-08-18] MEDS: 0.9 % Sodium Chloride Flush 3 ML SYRINGE IVFLUSH ×4 (00:14→23:32)
[2022-08-18 00:20] LABS: Glucose, Whole Blood 350 mg/dL (60-115)
[2022-08-18] MEDS: fentaNYL citrate/NS 1,000 MCG/100 ML PLAST..BAG 10 MCG IVCONT (00:33)
[2022-08-18] MEDS: Norepinephrine Bitartrate/D5W 8 MG/250 ML PLAST..BAG 77.23 MG IV (00:34)
[2022-08-18 00:38] LABS: Alanine Aminotransferase 27 U/L (0-31); Albumin Level 3.1 g/dL (3.5-5.0); Alkaline Phosphatase 92 U/L (39-117); Anion Gap 15 (12-20); Aspartate Amino Transferase 42 U/L (5-31); Bilirubin Total 2.8 mg/dL (0.0-1.0); Blood Urea Nitrogen 54 mg/dL (9-16); Calcium 8.5 mg/dL (8.4-10.2); Carbon Dioxide 39 mmol/L (22-29); Chloride 104 mmol/L (96-108); Creatinine Clr Calc Pharmacy 43.1; Estimated Glomerular Filt Rate 30; Glucose Random 387 mg/dL (60-115); Magnesium 2.3 mg/dL (1.6-2.6); Phosphorus 4.2 mg/dL (2.7-4.5); Sodium 155 mmol/L (135-145); Total Protein 5.7 g/dL (6.5-8.0)
[2022-08-18] MEDS: Potassium Chloride/H20 40 MEQ/100 ML PIGGYBACK 100 MEQ IV ×5 (01:13→21:23)
[2022-08-18] MEDS: Potassium Chloride Packet 20 MEQ PACKET 40 MEQ PO ×2 (01:13→02:44)
[2022-08-18] MEDS: Metoprolol Tartrate 5 MG/5 ML VIAL IVPUSH ×3 (01:31→19:44)
[2022-08-18] MEDS: Norepinephrine Bitartrate/D5W 8 MG/250 ML PLAST..BAG 82.38 MG IV ×6 (03:50→18:20)
[2022-08-18] MEDS: Piperacillin Sodium/Tazobactam 3.375 GM in 0.9 % Sodium Chloride 50 ML IV ×4 (04:03→21:23)
[2022-08-18 05:24] LABS: VBG Base Excess 10.7 mmol/L; VBG HCO3 36 mmol/L (22-26); VBG pCO2 56 mmHg; VBG pH 7.42 (7.32-7.43); VBG pO2 53 mmHg
[2022-08-18 05:25] LABS: Venous Blood Gas Refer to POC result
[2022-08-18 06:05] LABS: Alanine Aminotransferase 26 U/L (0-31); Alkaline Phosphatase 87 U/L (39-117); Anion Gap 12 (12-20); Aspartate Amino Transferase 40 U/L (5-31); Bilirubin Total 2.8 mg/dL (0.0-1.0); Blood Urea Nitrogen 54 mg/dL (9-16); Calcium 8.3 mg/dL (8.4-10.2); Carbon Dioxide 37 mmol/L (22-29); Chloride 105 mmol/L (96-108); Creatinine Clr Calc Pharmacy 45.3; Estimated Glomerular Filt Rate 32; Glucose Random 339 mg/dL (60-115); Magnesium 2.4 mg/dL (1.6-2.6); Phosphorus 3.2 mg/dL (2.7-4.5); Potassium 4.3 mmol/L (3.3-5.1); Sodium 150 mmol/L (135-145); Total Protein 5.7 g/dL (6.5-8.0)
[2022-08-18 06:22] LABS: Basophils Absolute Auto 0.1 X10*3/uL (0.0-0.2); Basophils Percent Auto 0.5 % (0-2); Eosinophils Absolute Auto 0.3 X10*3/uL (0.0-0.4); Eosinophils Percent Auto 2.1 % (0-4); Hematocrit 29.6 % (37.0-47.0); Hemoglobin 8.7 g/dl (12.0-16.0); Imm Gran Abs Auto 0.19 X10*3/uL (0.00-0.03); Imm Gran Pct Auto 1.4 % (0.0-0.4); Lymphocytes Absolute Auto 1.2 X10*3/uL (1.2-4.9); Lymphocytes Percent Auto 8.6 % (20-40); MANUAL DIFF FLAG SCAN; Mean Corpuscular HGB Conc 29.4 g/dl (31.0-35.0); Mean Corpuscular Hemoglobin 30.5 pg (27.0-33.0); Mean Corpuscular Volume 103.9 fL (80.0-98.0); Mean Platelet Volume 9.6 fL (9.4-12.3); Monocytes Absolute Auto 1.6 X10*3/uL (0.1-1.2); Monocytes Percent Auto 11.3 % (2-11); NRBC Pct Auto 0.3 /100WBC (0.0-0.2); Neutrophils Absolute Auto 10.6 x10*3/uL (2.0-8.3); Neutrophils Percent Auto 76.1 % (45-73); Platelet Count 182 X10*3/uL (160-400); Red Blood Count 2.85 X10*6/uL (4.20-5.50); SCAN SMEAR FLAG 1
[2022-08-18 06:24] LABS: SLIDE REVIEW VERIFIED
[2022-08-18] MEDS: Albumin Human 25 % 100 ML IV ×2 (08:30→10:03)
[2022-08-18] MEDS: acetaZOLAMIDE sodium 500 MG VIAL IVPUSH ×2 (08:41→20:37)
[2022-08-18] MEDS: Digoxin 0.5 MG/2 ML AMPUL 0.25 MG IVPUSH (08:43)
[2022-08-18] MEDS: Bumetanide 1 MG/4 ML VIAL IVPUSH ×3 (08:43→17:17)
[2022-08-18] MEDS: Insulin Glargine,Hum.rec.anlog 100 UNIT/ML 10 ML VIAL 45 UNIT SUBCUT (08:52)
[2022-08-18] MEDS: Lactulose 20 GM/30 ML SOLUTION 30 GM PO ×2 (09:40→20:37)
[2022-08-18] MEDS: Nystatin Powder 15 GM BOTTLE 1 APPL TOPICAL ×2 (09:41→20:38)
[2022-08-18] MEDS: Sucralfate Oral Suspension 1 GM/10 ML ORAL.SUSP PO ×2 (09:41→20:37)
--- NOTE | 2022-08-18 10:25 | PM.CCPN ---
Subjective Subjective Date of Service: 08/18/22 Interval History: ICU day 7 for cardiac arrest, acute on chronic hypoxic respiratory failure, congestive heart failure, AFib with RVR, aspiration pneumonitis 72-year-old lady with underlying history of morbid obesity, AFib, multiple admissions for exacerbation of underlying chronic diastolic congestive heart failure secondary to poor compliance with ambulatory diuretic regimen, COPD, diabetes mellitus admitted on 08/10/2022 with dyspnea and acute hypoxic respiratory failure secondary to exacerbation of underlying chronic diastolic congestive heart failure with retainingof approximately 30 lb of water weight. Patient was admitted to general medical [facility] and started on IV diuresis with some improvement. Hospital course significant for episode of profound hypoxemia on 08/12/2022 with ambulation resulting in bradycardia and asystolic cardiac arrest with CPR started immediately and return of spontaneous circulation achieved after 6 minutes of CPR. Patient was intubated during the CPR. Patient has sustained 2nd and brief cardiac arrest up to 1 minute while being transported to the intensive care unit, also with successful resuscitation. Now with prolonged encephalopathy. No events overnight. Critical Care Time (minutes): 45 Physical Exam Vital Signs: Vital Signs: Last Vital Signs Temp 101 F H 08/18/22 10:00 Pulse 124 H 08/18/22 10:00 Resp 13 08/18/22 10:00 BP 121/56 L 08/18/22 10:00 Pulse Ox 91 L 08/18/22 10:00 O2 Del Method 08/18/22 10:00 O2 Flow Rate 4 08/12/22 11:17 FiO2 40 08/18/22 10:00 Oxygen Flow Rate 3 08/10/22 09:54 BMI result Body Mass Index 48.8 Const: General: no acute distress and other ( poor arousal with sedation vacation) Nutritional Appearance: obese and other Eyes: Sclerae: sclerae normal Neck: Neck: Yes no lymphadenopathy, Yes trachea midline and Yes supple Resp: Auscultation: crackles ( mild bilateral) Cardio: Rate: tachycardic Rhythm: abnormal rhythm irregularly irregular Heart sounds: no gallops, no murmurs and no rubs GI: Palpation (GI): Soft to palpation and Other GI palpation findings present ( Nontender) Auscultation: normal bowel sounds Extrem: General: Yes no pedal edema, No clubbing and No cyanosis Objective Data Labs 08/18/22 05:25 08/18/22 05:25 Labs: Laboratory Results - last 24 hr 08/17/22 08/17/22 08/17/22 11:33 18:06 18:18 WBC RBC Hgb Hct MCV MCH MCHC RDW Plt Count MPV Immature Gran % (Auto) Neut % (Auto) Lymph % (Auto) [place] % (Auto) Eos % (Auto) Baso % (Auto) Lymph # (Auto) [place] # (Auto) Eos # (Auto) Baso # (Auto) Abs Immat Gran (auto) Absolute Neuts (auto) Absolute Nucleated RBC Nucleated RBC % (auto) Smear Tech's Comments VBG pH VBG pCO2 VBG pO2 VBG HCO3 VBG O2 Saturation VBG Base Excess Sodium 153 H Potassium 3.8 Chloride 103 Carbon Dioxide 39 H Anion Gap 15 BUN 58 H Creatinine 1.75 H Estim Creat Clear Calc 40.9 Estimated GFR 28 POC Glucose 319 H 340 H Random Glucose 400 H* Calcium 8.6 Phosphorus Magnesium Total Bilirubin AST ALT Alkaline Phosphatase Total Protein Albumin 08/18/22 08/18/22 08/18/22 00:07 00:08 05:17 WBC RBC Hgb Hct MCV MCH MCHC RDW Plt Count MPV Immature Gran % (Auto) Neut % (Auto) Lymph % (Auto) [place] % (Auto) Eos % (Auto) Baso % (Auto) Lymph # (Auto) [place] # (Auto) Eos # (Auto) Baso # (Auto) Abs Immat Gran (auto) Absolute Neuts (auto) Absolute Nucleated RBC Nucleated RBC % (auto) Smear Tech's Comments VBG pH 7.42 VBG pCO2 56 VBG pO2 53 VBG HCO3 36 H VBG O2 Saturation 82.0 VBG Base Excess 10.7 Sodium 155 H Potassium 3.0 L D Chloride 104 Carbon Dioxide 39 H Anion Gap 15 BUN 54 H Creatinine 1.66 H Estim Creat Clear Calc 43.1 Estimated GFR 30 POC Glucose 350 H* Random Glucose 387 H* Calcium 8.5 Phosphorus 4.2 Magnesium 2.3 Total Bilirubin 2.8 H AST 42 H ALT 27 Alkaline Phosphatase 92 Total Protein 5.7 L Albumin 3.1 L 08/18/22 08/18/22 05:25 05:25 WBC 14.0 H RBC 2.85 L Hgb 8.7 L Hct 29.6 L MCV 103.9 H MCH 30.5 MCHC 29.4 L RDW 19.0 H Plt Count 182 MPV 9.6 Immature Gran % (Auto) 1.4 H Neut % (Auto) 76.1 H Lymph % (Auto) 8.6 L [place] % (Auto) 11.3 H Eos % (Auto) 2.1 Baso % (Auto) 0.5 Lymph # (Auto) 1.2 [place] # (Auto) 1.6 H Eos # (Auto) 0.3 Baso # (Auto) 0.1 Abs Immat Gran (auto) 0.19 H Absolute Neuts (auto) 10.6 H Absolute Nucleated RBC 0.040 H Nucleated RBC % (auto) 0.3 H Smear Tech's Comments VERIFIED VBG pH VBG pCO2 VBG pO2 VBG HCO3 VBG O2 Saturation VBG Base Excess Sodium 150 H Potassium 4.3 D Chloride 105 Carbon Dioxide 37 H Anion Gap 12 BUN 54 H Creatinine 1.58 H Estim Creat Clear Calc 45.3 Estimated GFR 32 POC Glucose Random Glucose 339 H Calcium 8.3 L Phosphorus 3.2 Magnesium 2.4 Total Bilirubin 2.8 H AST 40 H ALT 26 Alkaline Phosphatase 87 Total Protein 5.7 L Albumin 3.0 L Microbiology Microbiology Results: Microbiology 08/10/22 11:41 Blood - Venous Blood Culture - Final No growth after 5 days. 08/10/22 10:46 Blood - Venous Blood Culture - Final No growth after 5 days. Progress Note: A&P Assessment and plan (1) Aspiration pneumonitis: Status: Acute (2) CORINNA (acute kidney injury): Status: Acute (3) Cardiac arrest: Status: Acute (4) Acute on chronic respiratory failure with hypoxia and hypercapnia: Status: Acute (5) Chronic atrial fibrillation: Status: Acute (6) Acute on chronic diastolic (congestive) heart failure: Status: Acute (7) T2DM (type 2 diabetes mellitus): Status: Acute (8) Morbid obesity: Status: Acute (9) Acute encephalopathy: Status: Acute Plan Assessment: 72-year-old lady with underlying advanced diastolic congestive heart failure with multiple admissions for heart failure exacerbation admitted with heart failure exacerbation with hospital course complicated by hypoxic episode resulting in bradycardia and asystolic cardiac arrest with successful resuscitation Plan: Neuro: No acute issues. Cardiac: Cardiac arrest secondary to hypoxia with bradycardia/asystole with CPR started immediately and successful resuscitation. Continue to titrate of pressor support as tolerated. 2D echocardiogram with no meaningful images. Cardiology service care appreciated. Underlying advanced diastolic congestive heart failure. Improving with diuresis. Continue on digoxin for rate control of AFib with RVR. Improving significantly with diuresis. Pulmonary: Acute hypoxic respiratory failure, intubated during the CPR, also with component of aspiration pneumonitis. Continue to titrate off ventilatory support as tolerated. Underlying MELANIE. Renal: Acute kidney injury on the background of congestive heart failure exacerbation. Non oliguric. Continue to monitor renal indices and urine output. Endo: No acute issues. Underlying diabetes mellitus on subcutaneous insulin protocol. GI: Coffee-ground aspirate on placement of for OG-tube on the background of post CPR and recent Xarelto use. Gastroenterology service care appreciated. Will monitor clinically at this time. Continue PPI. ID: Empirically covered for aspiration pneumonitis. Heme/Onc: No acute issues. Psych: No acute issues. Miscellaneous: No acute issues. Prophylaxis: Pneumatic compression, ppi Diet: Tube feeds Critical care time spent: 45 minutes Quality Stroke Does the patient have a stroke diagnosis?: No VTE Prior VTE?: No VTE Risk Level:: Medical - moderate - high VTE Device Contraindication: Treatment Not Indicated VTE Drug Contraindication: N/A - Med Ordered
--- NOTE | 2022-08-18 12:28 | MHC.CM.PN ---
PATIENT REMAINS ON VENT SUPPORT. CASE MANAGEMENT FOLLOWING
[2022-08-18 12:39] LABS: Glucose, Whole Blood 302 mg/dL (60-115)
[2022-08-18] MEDS: Acetaminophen 325 MG TABLET 650 MG PO (14:47)
[2022-08-18 18:11] LABS: Glucose, Whole Blood 292 mg/dL (60-115)
[2022-08-18 18:30] LABS: Anion Gap 15 (12-20); Blood Urea Nitrogen 53 mg/dL (9-16); Calcium 8.5 mg/dL (8.4-10.2); Carbon Dioxide 35 mmol/L (22-29); Chloride 105 mmol/L (96-108); Creatinine Clr Calc Pharmacy 42.8; Estimated Glomerular Filt Rate 30; Glucose Random 336 mg/dL (60-115); Potassium 3.3 mmol/L (3.3-5.1); Sodium 152 mmol/L (135-145)
[2022-08-18] MEDS: Amiodarone/Dextrose 150 MG/100 ML PLAST..BAG 600 MG IV (18:36)
[2022-08-18] MEDS: Amiodarone HCL 900 MG in 0.9 % Sodium Chloride 500 ML 34.53 MG IVCONT (18:50)
[2022-08-18] MEDS: Magnesium Sulfate/H2O 2 GM/50 ML PIGGYBACK IV (18:55)
--- NOTE | 2022-08-18 19:18 | PC.NURSE ---
18:24 PT RHYTHM CHANGE ON TELE FROM AFIB TO VTACH. RNS TO BEDSIDE, MD NOTIFIED. FEMORAL PULSE AND RADIAL PULSE PRESENT. VTACH RATE 180s FOR 56 SECONDS. CRASH CART TO PT BEDSIDE. PT TELE RHYTHM CHANGED TO AFIB WITH FREQUENT PVCs. PACER PADS PLACED ON PT, PT ON ZOLL MONITOR, AMBU BAG READY AT BEDSIDE. PER MD, LOADING DOSE AMIODARONE GIVEN AND AMIODARONE GTT STARTED @1 PER MD, 2G MAGNESIUM IV AND 40 MEQ POTASSIUM CHLORIDE IV GIVEN. NEXT NURSE NOTIFIED AND WILL CONTINUE PER ORDERS.
[2022-08-18] MEDS: Insulin Glargine,Hum.rec.anlog 100 UNIT/ML 10 ML VIAL 55 UNIT SUBCUT (20:37)
[2022-08-18] MEDS: Norepinephrine Bitartrate/D5W 8 MG/250 ML PLAST..BAG 92.68 MG IV (21:09)
[2022-08-18 23:42] LABS: Glucose, Whole Blood 329 mg/dL (60-115)
[2022-08-19] VITALS (29 sets, daily range): BP systolic 88–137; BP diastolic 41–85; PULSE 76–114; RESP 16–26; TEMP 35–38.9; O2SAT 91–99; BMI 45.0
--- NOTE | 2022-08-19 | ECG_ITS ---
Test Reason : vt Blood Pressure : / mmHG Vent. Rate : 091 BPM Atrial Rate : 000 BPM P-R Int : 000 ms QRS Dur : 090 ms QT Int : 342 ms P-R-T Axes : 000 -09 196 degrees QTc Int : 420 ms Atrial fibrillation Low voltage QRS Nonspecific ST and T wave abnormality Abnormal ECG When compared with ECG of 12-AUG-2022 19:54, No significant changes seen Referred By: Kina Laguna Electronically Signed By:JULIAN ALCAZAR
[2022-08-19 00:40] LABS: Anion Gap 16 (12-20); Blood Urea Nitrogen 55 mg/dL (9-16); Calcium 8.3 mg/dL (8.4-10.2); Carbon Dioxide 33 mmol/L (22-29); Chloride 109 mmol/L (96-108); Creatinine Clr Calc Pharmacy 41.6; Estimated Glomerular Filt Rate 29; Glucose Random 344 mg/dL (60-115); Magnesium 2.7 mg/dL (1.6-2.6); Potassium 3.9 mmol/L (3.3-5.1); Sodium 154 mmol/L (135-145)
[2022-08-19] MEDS: Piperacillin Sodium/Tazobactam 3.375 GM in 0.9 % Sodium Chloride 50 ML IV ×4 (03:42→20:57)
[2022-08-19 04:27] LABS: VBG Base Excess 8.7 mmol/L; VBG HCO3 34 mmol/L (22-26); VBG pCO2 52 mmHg; VBG pH 7.41 (7.32-7.43); VBG pO2 43 mmHg
[2022-08-19 04:37] LABS: MANUAL DIFF FLAG NO; Venous Blood Gas Refer to POC result
[2022-08-19 04:41] LABS: Basophils Absolute Auto 0.1 X10*3/uL (0.0-0.2); Basophils Percent Auto 0.5 % (0-2); Eosinophils Absolute Auto 0.2 X10*3/uL (0.0-0.4); Eosinophils Percent Auto 1.1 % (0-4); Hematocrit 28.5 % (37.0-47.0); Hemoglobin 8.3 g/dl (12.0-16.0); Imm Gran Abs Auto 0.19 X10*3/uL (0.00-0.03); Imm Gran Pct Auto 1.4 % (0.0-0.4); Lymphocytes Absolute Auto 1.3 X10*3/uL (1.2-4.9); Lymphocytes Percent Auto 9.5 % (20-40); Mean Corpuscular HGB Conc 29.1 g/dl (31.0-35.0); Mean Corpuscular Hemoglobin 30.2 pg (27.0-33.0); Mean Corpuscular Volume 103.6 fL (80.0-98.0); Mean Platelet Volume 9.9 fL (9.4-12.3); Monocytes Absolute Auto 1.4 X10*3/uL (0.1-1.2); Monocytes Percent Auto 10.2 % (2-11); NRBC Pct Auto 0.2 /100WBC (0.0-0.2); Neutrophils Absolute Auto 10.3 x10*3/uL (2.0-8.3); Neutrophils Percent Auto 77.3 % (45-73); Platelet Count 170 X10*3/uL (160-400); Red Blood Count 2.75 X10*6/uL (4.20-5.50); Red Cell Distribution Width 19.5 % (11.0-16.0); White Blood Count 13.3 X10*3/uL (4.8-10.8)
[2022-08-19] MEDS: Metoprolol Tartrate 5 MG/5 ML VIAL IVPUSH (04:57)
[2022-08-19 05:07] LABS: Albumin Level 3.1 g/dL (3.5-5.0); Anion Gap 16 (12-20); Blood Urea Nitrogen 55 mg/dL (9-16); Calcium 8.4 mg/dL (8.4-10.2); Carbon Dioxide 32 mmol/L (22-29); Chloride 108 mmol/L (96-108); Creatinine Clr Calc Pharmacy 43.4; Estimated Glomerular Filt Rate 30; Glucose Random 337 mg/dL (60-115); Magnesium 2.7 mg/dL (1.6-2.6); Phosphorus 2.7 mg/dL (2.7-4.5); Potassium 3.8 mmol/L (3.3-5.1); Sodium 152 mmol/L (135-145)
[2022-08-19 05:20] LABS: Glucose, Whole Blood 289 mg/dL (60-115)
[2022-08-19] MEDS: Insulin Lispro 100 UNIT/ML 3 ML VIAL SUBCUT ×2 (06:07→12:19)
--- NOTE | 2022-08-19 06:35 | PC.NURSE ---
Assumed care of patient at 1845. On initial assessment pupils noted to be unequal. Right pupil was 4mm and briskly reactive while left pupil was 2mm and sluggishly reactive. Bernadine PANTOJA notified, per PA plan for MRI Saturday 08/19 and no new orders needed at that time. At approximately 0400 patient noted to have paroxysmal VT multiple times lasting between 30 seconds and 1.5 minutes. PA at bedside to evaluate, AM labs drawn and additional 150mg Amiodarone bolus given as ordered w/minimal effectiveness. At 0445 patient continued to have pVT. PA at bedside again to evaluate, 5mg IV Metoprolol given w/good effect and no further episodes of pVT. Patient remains attached to Zoll monitor w/defib pads in place. Oncoming RN aware.
--- NOTE | 2022-08-19 07:00 | CA_ITS ---
Transthoracic Echocardiogram Patient (Last, First, Middle): Ragini Little, Gender: Female Date of : 1950 Age: 72 Procedure Date: 08/19/2022 Procedure Type: Transthoracic Echocardiogram Location: ICU Height: 167.64 cm Weight: 136.99 kg BSA: 2.38 m2 Heart Rate: bpm BP: 121 / 49 mmHg Tractor Driver: Referring MD: Gwyn Tran MD Symptoms: s/p CARDIAC ARREST AND CPR Study Quality: Technically Difficult due to obesity, fair w Defin ECG Rhythm: Atrial Fibrillation Conclusions: - The left ventricular systolic function is normal. The visually estimated ejection fraction is between 60-65%. - Severely increased right ventricular cavity size. There is low normal right ventricular systolic function. - The right atrium is severely dilated. - There is no evidence of interatrial shunt by agitated saline. - There is mild to moderate tricuspid valve regurgitation. - Moderate to severe pulmonary hypertension is present. - The inferior vena cava is severely dilated and does not collapse with inspiration. Findings Procedure Information Contrast agent, definity, is being given per protocol without apparent complications. Left Ventricle Normal left ventricular cavity size. There is mildly increased left ventricular wall thickness. The left ventricular systolic function is normal. The visually estimated ejection fraction is between 60-65%. Regional wall motion abnormalities can not be excluded due to suboptimal endocardial definition. Diastolic function is indeterminate on the basis of available data. Right Ventricle Severely increased right ventricular cavity size. There is low normal right ventricular systolic function. Atria The left atrium is normal in size. There is no evidence of interatrial shunt by agitated saline. The right atrium is severely dilated. Aortic Valve The aortic valve was not well visualized. There is no aortic valve stenosis. There is no aortic valve regurgitation. Mitral Valve The mitral valve appears normal. There is trace mitral valve regurgitation. There is no mitral valve stenosis. Pulmonic Valve The pulmonic valve is likely normal. Tricuspid Valve There is mild to moderate tricuspid valve regurgitation. The right ventricular systolic pressure is 70 mmHg. Moderate to severe pulmonary hypertension is present. Great Vessels The asc aorta is normal in size. Venous The inferior vena cava is severely dilated and does not collapse with inspiration. The dilated coronary sinus suggests high right atrial pressure. (intubated). Pericardium/Pleural There is no evidence of pericardial effusion. Prior Study Comparison Changes noted compared to prior study dated: 02/01/2022. See comments on pulmonary hypertension. Not previously described. Measurements 2D Linear Measurements IVSd: 1.15 0.6-0.9/0.6-1.0 cm LVIDd: 4.79 3.9-5.3/4.2-5.9 cm LVIDd Index: 2.01 2.4-3.2/2.2-3.1 cm/m2 LVIDs: 2.78 2.0-3.6 cm LVPWd: 1.15 0.7-1.1 cm Ao Root: 3.40 2.1-3.5 cm LA Diam: 4.00 2.7-3.8/3.0-4.0 cm LAIDs Index: 1.68 1.5-2.3 cm/m2 LV Mass: 256.36 67-162/88-224 g LV Mass Index: 107.71 43-95/49-115 g/m2 LVOT Diam: 2.10 3.0+(-)1.3 cm Mitral Valve MV Pk E: 1.07 MV Decel Time: 169.00 E'Lateral: 11.50 E'Medial: 9.57 E/E' Med: 11.20 E/E' Lat: 9.30 PHT: 50.00 MVA PHT: 4.40 Decel [place]: 6.31 Aortic Valve AoV Pk Felix: 2.05 AoV Mn Felix: 1.39 AoV VTI: 0.33 AoV Pk Grad: 17.00 Aov Mn Grad: 9.00 DAVID Cont.VTI: 1.50 LVOT LVOT Pk Felix: 0.98 LVOT Mn Felix: 0.58 LVOT VTI: 0.14 LVOT Pk Grad: 4.00 LVOT Mn Grad: 2.00 LVOT Diam: 2.10 LVOT Area: 3.46 Diastolic Function MV Pk E: 1.07 E'Medial: 9.57 E/E' Med: 11.20 E' Laterial: 11.50 E/E' Lat: 9.30 Tricuspid Valve TR Pk Felix: 3.72 TR Pk Grad: 55.00 RA Press: 15.00 RVSP: 70.00 Great Vessels Aorta Ao Root-2D: 3.40 2.0-3.7 cm Ao Asc: 3.90 2.1-3.4 cm Pulmonary Valve PV Pk Felix: 1.89 Peak PV Grad: 14.00 Updated in Other Vendor System with Status of Final Tulio Mckeon MD electronically signed on 08/19/2022 12:32:36 PM with status of Final
[2022-08-19] MEDS: Sucralfate Oral Suspension 1 GM/10 ML ORAL.SUSP PO ×2 (07:32→21:00)
[2022-08-19] MEDS: acetaZOLAMIDE sodium 500 MG VIAL IVPUSH (07:32)
[2022-08-19] MEDS: Insulin Glargine,Hum.rec.anlog 100 UNIT/ML 10 ML VIAL 55 UNIT SUBCUT ×2 (07:32→20:59)
[2022-08-19] MEDS: Nystatin Powder 15 GM BOTTLE 1 APPL TOPICAL ×2 (07:32→21:01)
[2022-08-19] MEDS: 0.9 % Sodium Chloride Flush 3 ML SYRINGE IVFLUSH ×2 (07:32→15:33)
[2022-08-19] MEDS: Digoxin 0.5 MG/2 ML AMPUL 0.125 MG IVPUSH (08:22)
--- NOTE | 2022-08-19 08:55 | MHC.CLN ---
F/U PT REMAINS INTUBATED RECOMMEND GLUCERNA AT MAX GOAL RATE 55ML/HR WITH 120ML FREE WATER FLUSHES Q 8 HRS TO PROVIDE 1320KCALS (23KCALS/KG BASED ON IBW), 55G PROTEIN (.9G/KG), 1485ML TOTAL FREE WATER FROM FORMULA AND FLUSHES (25KCALS/KG BASED ON IBW) MONITOR TOLERANCE, RESIDUALS AND LYTES
[2022-08-19] MEDS: Acetaminophen 325 MG TABLET 650 MG PO (09:44)
[2022-08-19 12:16] LABS: Glucose, Whole Blood 211 mg/dL (60-115)
--- NOTE | 2022-08-19 12:53 | P.PNCC_ITS ---
Subjective Subjective Date of Service: 08/19/22 Interval History: 72-year-old morbidly obese female who clearly with a acute on chronic hypercarbic an hypoxic respiratory failure who basically as a result of some minimal exertion to the bathroom arrested and had CPR and is currently intubated now for a week could and presently is off both of her sedatives and remains still unresponsive except she will grimace to some deep pain has asymmetric pupils but with good light reactivity has positive corneals and I do believe that we can not evaluate doll's eyes because of at least some degree of awareness ME she consciously forces eyelids close when I try to raise them so I do think that there is some underlying degree of responsiveness she does have a cough and a gag and spontaneous respirations over the ventilator and I did bedside echo and then ordered a formal 1 which shows overwhelming right ventricular preponderance with globally normal systolic wall motion of the left ventricle but a flat septum which I do believe represents a degree of septal paradox and she has got almost systemic levels of pulmonary hypertension PA systolic estimated at 70 mmHg with wide open 4+ tricuspid regurgitation and she does have evidence of a patent foramen ovale on the bubble study and no evidence of ventricular or atrial clot with you the use of definity underlying rhythm is atrial fibrillation and right now rate is controlled on amiodarone drip which was instituted last night because of sustained ventricular tachycardia on 2 occasions and she stable from the standpoint of ventricular ectopy Critical Care Time (minutes): 60 Physical Exam Vital Signs: Vital Signs: Last Vital Signs Temp 101.8 F H 08/19/22 12:00 Pulse 90 08/19/22 12:00 Resp 21 H 08/19/22 12:00 BP 125/51 L 08/19/22 12:00 Pulse Ox 93 08/19/22 12:00 O2 Del Method 08/19/22 12:00 O2 Flow Rate 4 08/12/22 11:17 FiO2 40 08/19/22 12:00 Oxygen Flow Rate 3 08/10/22 09:54 BMI result Body Mass Index 45.0 poorly responsive off of all sedation still has a degree of anasarca and a CVP measurement of 13 with all V-wave indicating the significance of the tricuspid regurgitation and there is a marked right ventricular heave and with the atrial fibrillation and a history of heart failure with preserved ejection fraction I am sure that her pulmonary hypertension and cor pulmonale reflects longstanding left heart disease as well as her chronic hypoventilation related to both obesity an upper airway obstruction abdomen soft no organomegaly and tolerating feedings diminished bilateral breath sounds no evidence of adventitious sounds Objective Data Labs 08/19/22 04:18 08/19/22 04:18 Labs: Laboratory Results - last 24 hr 08/18/22 08/18/22 08/18/22 17:59 18:02 23:29 WBC RBC Hgb Hct MCV MCH MCHC RDW Plt Count MPV Immature Gran % (Auto) Neut % (Auto) Lymph % (Auto) [place] % (Auto) Eos % (Auto) Baso % (Auto) Lymph # (Auto) [place] # (Auto) Eos # (Auto) Baso # (Auto) Abs Immat Gran (auto) Absolute Neuts (auto) Absolute Nucleated RBC Nucleated RBC % (auto) VBG pH VBG pCO2 VBG pO2 VBG HCO3 VBG O2 Saturation VBG Base Excess Sodium 152 H Potassium 3.3 D Chloride 105 Carbon Dioxide 35 H Anion Gap 15 BUN 53 H Creatinine 1.67 H Estim Creat Clear Calc 42.8 Estimated GFR 30 POC Glucose 292 H 329 H Random Glucose 336 H Calcium 8.5 Phosphorus Magnesium Albumin 08/19/22 08/19/22 08/19/22 00:15 04:18 04:18 WBC 13.3 H RBC 2.75 L Hgb 8.3 L Hct 28.5 L MCV 103.6 H MCH 30.2 MCHC 29.1 L RDW 19.5 H Plt Count 170 MPV 9.9 Immature Gran % (Auto) 1.4 H Neut % (Auto) 77.3 H Lymph % (Auto) 9.5 L [place] % (Auto) 10.2 Eos % (Auto) 1.1 Baso % (Auto) 0.5 Lymph # (Auto) 1.3 [place] # (Auto) 1.4 H Eos # (Auto) 0.2 Baso # (Auto) 0.1 Abs Immat Gran (auto) 0.19 H Absolute Neuts (auto) 10.3 H Absolute Nucleated RBC 0.030 H Nucleated RBC % (auto) 0.2 VBG pH VBG pCO2 VBG pO2 VBG HCO3 VBG O2 Saturation VBG Base Excess Sodium 154 H 152 H Potassium 3.9 3.8 Chloride 109 H 108 Carbon Dioxide 33 H 32 H Anion Gap 16 16 BUN 55 H 55 H Creatinine 1.72 H 1.65 H Estim Creat Clear Calc 41.6 43.4 Estimated GFR 29 30 POC Glucose Random Glucose 344 H 337 H Calcium 8.3 L 8.4 Phosphorus 2.7 Magnesium 2.7 H 2.7 H Albumin 3.1 L 08/19/22 08/19/22 08/19/22 04:21 05:17 12:02 WBC RBC Hgb Hct MCV MCH MCHC RDW Plt Count MPV Immature Gran % (Auto) Neut % (Auto) Lymph % (Auto) [place] % (Auto) Eos % (Auto) Baso % (Auto) Lymph # (Auto) [place] # (Auto) Eos # (Auto) Baso # (Auto) Abs Immat Gran (auto) Absolute Neuts (auto) Absolute Nucleated RBC Nucleated RBC % (auto) VBG pH 7.41 VBG pCO2 52 VBG pO2 43 VBG HCO3 34 H VBG O2 Saturation 70.0 VBG Base Excess 8.7 Sodium Potassium Chloride Carbon Dioxide Anion Gap BUN Creatinine Estim Creat Clear Calc Estimated GFR POC Glucose 289 H 211 H Random Glucose Calcium Phosphorus Magnesium Albumin Microbiology Microbiology Results: Microbiology 08/10/22 11:41 Blood - Venous Blood Culture - Final No growth after 5 days. 08/10/22 10:46 Blood - Venous Blood Culture - Final No growth after 5 days. Progress Note: A&P Assessment and plan (1) Acute encephalopathy: Status: Acute (2) Aspiration pneumonitis: Status: Acute (3) CORINNA (acute kidney injury): Status: Acute (4) Acute anemia: Status: Acute (5) Cardiac arrest: Status: Acute (6) Acute on chronic respiratory failure with hypoxia and hypercapnia: Status: Acute (7) Volume overload: Status: Acute (8) Acute exacerbation of congestive heart failure: Status: Acute (9) Hypokalemia: Status: Acute (10) Acute on chronic diastolic (congestive) heart failure: Status: Acute (11) Acute on chronic right-sided heart failure: Status: Acute (12) Edema: Status: Acute (13) (HFpEF) heart failure with preserved ejection fraction: Status: Acute (14) Chronic atrial fibrillation: Status: Acute (15) Supplemental oxygen dependent: Status: Acute (16) COPD (chronic obstructive pulmonary disease): Status: Acute (17) Diabetic neuropathy: Status: Acute (18) Vitamin D deficiency: Status: Acute (19) HLD (hyperlipidemia): Status: Acute (20) T2DM (type 2 diabetes mellitus): Status: Acute (21) Phlebitis of left leg: Status: Acute (22) Pulmonary hypertension: Status: Acute (23) Tricuspid regurgitation: Status: Acute (24) Morbid obesity: Status: Acute (25) CKD (chronic kidney disease): Status: Acute (26) MELANIE (obstructive sleep apnea): Status: Acute Plan currently, overall prognosis looks grim in that she had what amounted to add an exertional syncope but in this particular case more extreme with sudden requiring a brief CPR and some stability achieved after post intubation only on FiO2 of 40% with minute ventilatory requirements that her modest at about 9-10 L at a she had a funny end-tidal CO2 pattern with a bump of CO2 elevation at the end of the plateau. And I kind of felt that this could be over distention of alveoli and that pattern disappeared when I stopped the PEEP completely so hopefully this will also help to mechanically unload the right ventricle and will maintain the ventilator for now and observe for signs of improving mental status if at all possible before evaluating formally by EEG the extent of her encephalopathy with pupillary asymmetry and prolonged non responsiveness were going to go for a CT scan today and if more detail as needed possibly subsequent MRI continue antibiotics for an observe nosocomial aspiration and anti rhythmic medication both for heart rate control in AFib and also V-tach prophylaxis which presumably has its origin in the right ventricle but this set of hemodynamic circumstances is going to be exceedingly difficult if not impossible to treat and if she were to completely awake and we might need to offer the option of of tracheostomy and even then she might still be a class for cardiac and given this right ventricular function and and we may even need to replace the CVP with a [place]- Марина catheter to obtain simultaneous left heart pressures and to look for signs of reversibility when you place her on something for pulmonary hypertension Quality Stroke Does the patient have a stroke diagnosis?: No VTE Prior VTE?: No VTE Risk Level:: Medical - moderate - high VTE Device Contraindication: Treatment Not Indicated VTE Drug Contraindication: N/A - Med Ordered
--- NOTE | 2022-08-19 14:33 | MHC.CM.PN ---
Pt continues on ventilatory support in ICU: not making substantial clinical progress - pt is presently down at CT to assess for any neuro injury like CVA that might explain her MS. At this time, d/c planning is halted pending work up/dx and discussions w/family on goals of care. CM to follow.
[2022-08-19 16:15] LABS: Anion Gap 12 (12-20); Blood Urea Nitrogen 53 mg/dL (9-16); Calcium 8.9 mg/dL (8.4-10.2); Carbon Dioxide 33 mmol/L (22-29); Chloride 112 mmol/L (96-108); Creatinine Clr Calc Pharmacy 42.8; Digoxin 1.3 ng/mL (0.8-2.0); Estimated Glomerular Filt Rate 32; Glucose Random 186 mg/dL (60-115); Magnesium 2.8 mg/dL (1.6-2.6); Potassium 3.1 mmol/L (3.3-5.1); Sodium 154 mmol/L (135-145)
[2022-08-19] MEDS: KCl 20 mEq in 5 % Dextrose 20 MEQ/1,000 ML IV.SOLN 80 MEQ IVCONT (16:39)
[2022-08-19] MEDS: Amiodarone HCL 900 MG in 0.9 % Sodium Chloride 500 ML 17.27 MG IVCONT (16:54)
[2022-08-19 18:07] LABS: Glucose, Whole Blood 116 mg/dL (60-115)
--- NOTE | 2022-08-19 18:19 | PC.NURSE ---
Pt continues to be intubated and off sedation; on vent setting AC mode of 14/400/40%/5 and tolerating. Moderate amount of creamish -yellow ETT secretions, suctioned PRN. Pt brought to CTscan of head this shift (see report). Pt had echo and US of legs at bedside as well (see report). Pt continues to be on Levophed gtt and Amiodarone gtt per order. Pt on tele: Afib with freq PVCs; Vtach run for 30secs this shift, back to Afib spontaneously, MD notified, lab work drawn (see report), K+ repleting currently in D5W per order. CVP unchanged at 13, MD aware. Pt currently resting in no acute distress. TF at goal with no residuals. Pt bathed and skin care provided. Repositioned every 2 hrs and as needed, prevalon system and wedges utilized. Cooling blanket applied for temp of 102, currently off since temp improved at 98.5. Son at [facility], updated. Safety maintained throughout. Will continue to monitor.
[2022-08-19] MEDS: fentaNYL citrate/PF 100 MCG/2 ML VIAL 50 MCG IVPUSH (19:21)
[2022-08-19] MEDS: dexmedeTOMIDidine HCL/NS 400 MCG/100 ML INFUS..BTL 31.63 MCG IVCONT (20:00)
[2022-08-19] MEDS: Amiodarone HCL 200 MG TABLET NG-TUBE (20:58)
[2022-08-19] MEDS: dexmedeTOMIDidine HCL/NS 400 MCG/100 ML INFUS..BTL 37.95 MCG IVCONT (22:24)
[2022-08-20] VITALS (32 sets, daily range): BP systolic 110–139; BP diastolic 39–100; PULSE 65–91; RESP 20–30; TEMP 34.6–38.5; O2SAT 91–99; BMI 44.9
--- NOTE | 2022-08-20 | ECG_ITS ---
Test Reason : qt interval Blood Pressure : / mmHG Vent. Rate : 091 BPM Atrial Rate : 115 BPM P-R Int : 000 ms QRS Dur : 078 ms QT Int : 400 ms P-R-T Axes : 000 -01 099 degrees QTc Int : 492 ms Artifact in tracing Atrial fibrillation Low voltage QRS Nonspecific ST and T wave abnormality Prolonged QT PVCs vs aberrant conduction Abnormal ECG When compared with ECG of 19-AUG-2022 08:30, PVCs vs aberrant conduction seen. Referred By: Kina Laguna Electronically Signed By:JULIAN ALCAZAR
[2022-08-20 00:59] LABS: Glucose, Whole Blood 238 mg/dL (60-115)
[2022-08-20] MEDS: dexmedeTOMIDidine HCL/NS 400 MCG/100 ML INFUS..BTL 37.95 MCG IVCONT ×3 (01:11→06:19)
[2022-08-20] MEDS: 0.9 % Sodium Chloride Flush 3 ML SYRINGE IVFLUSH ×3 (01:12→15:24)
[2022-08-20] MEDS: Insulin Lispro 100 UNIT/ML 3 ML VIAL SUBCUT ×5 (01:12→23:45)
[2022-08-20] MEDS: Acetaminophen 325 MG TABLET 650 MG PO (02:55)
[2022-08-20] MEDS: Piperacillin Sodium/Tazobactam 3.375 GM in 0.9 % Sodium Chloride 50 ML IV ×4 (03:33→21:35)
[2022-08-20] MEDS: KCl 20 mEq in 5 % Dextrose 20 MEQ/1,000 ML IV.SOLN 80 MEQ IVCONT (04:24)
[2022-08-20 04:44] LABS: VBG Base Excess 3.7 mmol/L; VBG HCO3 27 mmol/L (22-26); VBG pCO2 40 mmHg; VBG pH 7.44 (7.32-7.43); VBG pO2 59 mmHg
--- NOTE | 2022-08-20 04:47 | PC.NURSE ---
left IJ triple lumen dressing changed today 08/20. SM
[2022-08-20 04:49] LABS: Venous Blood Gas Refer to POC result
[2022-08-20 04:53] LABS: MANUAL DIFF FLAG NO
[2022-08-20 04:58] LABS: Basophils Absolute Auto 0.1 X10*3/uL (0.0-0.2); Basophils Percent Auto 0.5 % (0-2); Eosinophils Absolute Auto 0.2 X10*3/uL (0.0-0.4); Eosinophils Percent Auto 1.4 % (0-4); Hematocrit 31.3 % (37.0-47.0); Hemoglobin 9.2 g/dl (12.0-16.0); Imm Gran Abs Auto 0.18 X10*3/uL (0.00-0.03); Imm Gran Pct Auto 1.2 % (0.0-0.4); Lymphocytes Absolute Auto 1.3 X10*3/uL (1.2-4.9); Lymphocytes Percent Auto 8.2 % (20-40); Mean Corpuscular HGB Conc 29.4 g/dl (31.0-35.0); Mean Corpuscular Hemoglobin 30.4 pg (27.0-33.0); Mean Corpuscular Volume 103.3 fL (80.0-98.0); Mean Platelet Volume 9.8 fL (9.4-12.3); Monocytes Absolute Auto 1.4 X10*3/uL (0.1-1.2); Monocytes Percent Auto 8.9 % (2-11); NRBC Pct Auto 0.3 /100WBC (0.0-0.2); Neutrophils Absolute Auto 12.4 x10*3/uL (2.0-8.3); Neutrophils Percent Auto 79.8 % (45-73); Platelet Count 195 X10*3/uL (160-400); Red Blood Count 3.03 X10*6/uL (4.20-5.50); Red Cell Distribution Width 20.3 % (11.0-16.0); White Blood Count 15.6 X10*3/uL (4.8-10.8)
[2022-08-20 05:16] LABS: Anion Gap 13 (12-20); Blood Urea Nitrogen 52 mg/dL (9-16); Calcium 8.7 mg/dL (8.4-10.2); Carbon Dioxide 30 mmol/L (22-29); Chloride 112 mmol/L (96-108); Estimated Glomerular Filt Rate 35; Glucose Random 259 mg/dL (60-115); Magnesium 2.7 mg/dL (1.6-2.6); Sodium 152 mmol/L (135-145)
[2022-08-20] MEDS: Potassium Phosphate/NS 15 MMOL/250 ML PLAST..BAG 62.5 MMOL IV (05:43)
[2022-08-20] MEDS: Insulin Glargine,Hum.rec.anlog 100 UNIT/ML 10 ML VIAL 55 UNIT SUBCUT ×2 (07:29→21:35)
[2022-08-20] MEDS: Lactulose 20 GM/30 ML SOLUTION 30 GM PO (07:30)
[2022-08-20] MEDS: Amiodarone HCL 200 MG TABLET NG-TUBE (07:30)
[2022-08-20] MEDS: Sucralfate Oral Suspension 1 GM/10 ML ORAL.SUSP PO ×2 (07:30→21:35)
[2022-08-20] MEDS: Lidocaine HCl/PF 100 MG/5 ML SYRINGE 126.3 MG IV ×2 (08:35→10:02)
[2022-08-20] MEDS: dexmedeTOMIDidine HCL/NS 400 MCG/100 ML INFUS..BTL 18.98 MCG IVCONT (09:49)
[2022-08-20] MEDS: Lidocaine HCl/D5W 2 GM/250 ML IV.SOLN 7.5 GM IVCONT (10:18)
[2022-08-20 10:22] LABS: Anion Gap 14 (12-20); Blood Urea Nitrogen 47 mg/dL (9-16); Calcium 8.4 mg/dL (8.4-10.2); Carbon Dioxide 29 mmol/L (22-29); Chloride 113 mmol/L (96-108); Creatinine Clr Calc Pharmacy 48.6; Estimated Glomerular Filt Rate 37; Glucose Random 237 mg/dL (60-115); Sodium 153 mmol/L (135-145)
[2022-08-20] MEDS: Nystatin Powder 15 GM BOTTLE 1 APPL TOPICAL ×2 (11:44→22:51)
[2022-08-20 11:50] LABS: Glucose, Whole Blood 202 mg/dL (60-115)
[2022-08-20] MEDS: Potassium Chloride Packet 20 MEQ PACKET 40 MEQ PO (14:13)
[2022-08-20] MEDS: KCl 20 mEq in 5 % Dextrose 20 MEQ/1,000 ML IV.SOLN 100 MEQ IVCONT (15:24)
--- NOTE | 2022-08-20 15:46 | PM.CCPN ---
Subjective Subjective Date of Service: 08/20/22 Interval History: 72-year-old morbidly obese female who presented with acute on chronic hypercarbic and hypoxic respiratory failure and while assisted to the bathroom with her own physical effort collapsed and arrested and had a 6-7 minute CPR with intubation and it has been about 9 or 10 days since that time and she remains intubated and on several occasions with sedation holidays not in the real awakening with cognitive function she has awaken to a degree with with the with agitation and encephalopathic behavior and we have [address] scan which could imply hypoxic cortical injury She has longstanding cor pulmonale and coli developed acute on chronic cor pulmonale and demonstrates severe right ventricular heave as a physical manifestation of predominant right heart failure and clearly corroborated on echo where left ventricle appears to be small without segmental wall motion abnormality but the right ventricle is immense with marked dilatation of the inferior vena cava and there is no evidence of thrombus in the right heart and then as a E at least a patent foramen ovale wound which I am sure is created because of the in elevated right heart filling pressures but there was no evidence of peripheral venous thrombus as a in a potential source for recurrent emboli so I do not think that is the the issue I think that we have longstanding and progressive a levels of a chronic pulmonary hypertension and she came in with marked anasarca and a volume load that it eventually became overwhelming and might have precipitated this failure issue and superimposed on this situation we now have him evidence where she has had a recurrent sustained ventricular tachycardia treated with amiodarone but leaving her with very complex ectopy some of which may have been bradycardia induced and this happened with a about a 20-25% QT interval increase so that was stopped and she responded beautifully to lidocaine and she remains on 1 milligram/minute right now of lidocaine and the only other metabolic in come for aunts is the hypernatremia which is resolving on plain D5W and it was certainly in part a reflection of some over-diuresis Critical Care Time (minutes): 45 Physical Exam Vital Signs: Vital Signs: Last Vital Signs Temp 99.1 F 08/20/22 12:00 Pulse 85 08/20/22 15:00 Resp 23 H 08/20/22 15:00 BP 131/62 08/20/22 15:00 Pulse Ox 96 08/20/22 15:00 O2 Del Method 08/20/22 15:00 O2 Flow Rate 4 08/12/22 11:17 FiO2 30 08/20/22 15:00 Oxygen Flow Rate 3 08/10/22 09:54 BMI result Body Mass Index 44.9 Currently controlled atrial fibrillation heart rate in the mid 80s oxygen saturation is 92% on an FiO2 of 30% blood pressure is 112/50 with a mean of 77 and she has been off the dexmedetomidine now for several hours and remains unresponsive Chest x-ray with ET tube in adequate position as well as the central venous line and her NG tube Bilateral pleural effusions but it looks like she has got possible right perihilar fullness verses infiltrate Abdomen is soft with no organomegaly and tolerating feedings No external signs of residual anasarca CVP remains elevated with marked V-wave representing cysts 4+ tricuspid insufficiency Objective Data Labs 08/20/22 04:30 08/20/22 09:42 Labs: Laboratory Results - last 24 hr 08/19/22 08/19/22 08/19/22 15:49 15:49 18:04 WBC RBC Hgb Hct MCV MCH MCHC RDW Plt Count MPV Immature Gran % (Auto) Neut % (Auto) Lymph % (Auto) [place] % (Auto) Eos % (Auto) Baso % (Auto) Lymph # (Auto) [place] # (Auto) Eos # (Auto) Baso # (Auto) Abs Immat Gran (auto) Absolute Neuts (auto) Absolute Nucleated RBC Nucleated RBC % (auto) VBG pH VBG pCO2 VBG pO2 VBG HCO3 VBG O2 Saturation VBG Base Excess Sodium 154 H Potassium 3.1 L Chloride 112 H Carbon Dioxide 33 H Anion Gap 12 BUN 53 H Creatinine 1.59 H Estim Creat Clear Calc 42.8 Estimated GFR 32 POC Glucose 116 H Random Glucose 186 H Calcium 8.9 Phosphorus Magnesium 2.8 H Albumin Digoxin 1.3 08/20/22 08/20/22 08/20/22 00:55 04:30 04:30 WBC 15.6 H RBC 3.03 L Hgb 9.2 L Hct 31.3 L MCV 103.3 H MCH 30.4 MCHC 29.4 L RDW 20.3 H Plt Count 195 MPV 9.8 Immature Gran % (Auto) 1.2 H Neut % (Auto) 79.8 H Lymph % (Auto) 8.2 L [place] % (Auto) 8.9 Eos % (Auto) 1.4 Baso % (Auto) 0.5 Lymph # (Auto) 1.3 [place] # (Auto) 1.4 H Eos # (Auto) 0.2 Baso # (Auto) 0.1 Abs Immat Gran (auto) 0.18 H Absolute Neuts (auto) 12.4 H Absolute Nucleated RBC 0.040 H Nucleated RBC % (auto) 0.3 H VBG pH VBG pCO2 VBG pO2 VBG HCO3 VBG O2 Saturation VBG Base Excess Sodium 152 H Potassium 3.0 L Chloride 112 H Carbon Dioxide 30 H Anion Gap 13 BUN 52 H Creatinine 1.48 H Estim Creat Clear Calc 46.0 Estimated GFR 35 POC Glucose 238 H Random Glucose 259 H Calcium 8.7 Phosphorus 2.0 L Magnesium 2.7 H Albumin 3.0 L Digoxin 08/20/22 08/20/22 08/20/22 04:36 09:42 11:45 WBC RBC Hgb Hct MCV MCH MCHC RDW Plt Count MPV Immature Gran % (Auto) Neut % (Auto) Lymph % (Auto) [place] % (Auto) Eos % (Auto) Baso % (Auto) Lymph # (Auto) [place] # (Auto) Eos # (Auto) Baso # (Auto) Abs Immat Gran (auto) Absolute Neuts (auto) Absolute Nucleated RBC Nucleated RBC % (auto) VBG pH 7.44 H VBG pCO2 40 VBG pO2 59 VBG HCO3 27 H VBG O2 Saturation 87.0 VBG Base Excess 3.7 Sodium 153 H Potassium 3.0 L Chloride 113 H Carbon Dioxide 29 Anion Gap 14 BUN 47 H Creatinine 1.40 Estim Creat Clear Calc 48.6 Estimated GFR 37 POC Glucose 202 H Random Glucose 237 H Calcium 8.4 Phosphorus Magnesium Albumin Digoxin Microbiology Microbiology Results: Microbiology 08/10/22 11:41 Blood - Venous Blood Culture - Final No growth after 5 days. 08/10/22 10:46 Blood - Venous Blood Culture - Final No growth after 5 days. Progress Note: A&P Assessment and plan (1) Acute encephalopathy: Status: Acute (2) Aspiration pneumonitis: Status: Acute (3) CORINNA (acute kidney injury): Status: Acute (4) Acute anemia: Status: Acute (5) Cardiac arrest: Status: Acute (6) Acute on chronic respiratory failure with hypoxia and hypercapnia: Status: Acute (7) Volume overload: Status: Acute (8) Acute exacerbation of congestive heart failure: Status: Acute (9) Hypokalemia: Status: Acute (10) Acute on chronic diastolic (congestive) heart failure: Status: Acute (11) Acute on chronic right-sided heart failure: Status: Acute (12) Edema: Status: Acute (13) CHF (congestive heart failure): Status: Acute (14) Shortness of breath: Status: Acute (15) Decompensated heart failure: Status: Acute (16) Bradycardia: Status: Acute (17) (HFpEF) heart failure with preserved ejection fraction: Status: Acute (18) Chronic atrial fibrillation: Status: Acute (19) Supplemental oxygen dependent: Status: Acute (20) COPD (chronic obstructive pulmonary disease): Status: Acute (21) Lumbar pain: Status: Acute (22) Hospital discharge follow-up: Status: Acute (23) Hypokalemia: Status: Acute (24) Hip pain, right: Status: Acute (25) Diabetic neuropathy: Status: Acute (26) Vitamin D deficiency: Status: Acute (27) HLD (hyperlipidemia): Status: Acute (28) T2DM (type 2 diabetes mellitus): Status: Acute (29) USP (current) use of insulin: Status: Acute (30) Phlebitis of left leg: Status: Acute (31) Pulmonary hypertension: Status: Acute (32) Tricuspid regurgitation: Status: Acute (33) HTN (hypertension): Status: Acute (34) Diabetes mellitus: Status: Acute (35) Morbid obesity: Status: Acute (36) CKD (chronic kidney disease): Status: Acute (37) MELANIE (obstructive sleep apnea): Status: Acute Plan So we continue to follow CVP and degree of hypernatremia to gauge hour free water fluid replacement and replace her electrolytes as needed and we will try again for a sedation holiday in the morning as she improves metabolically and we may yet have to get further definition of brain anatomy with MRI and we also have a degree of anisocoria and not knowing which is the abnormal side the right which is relatively mydriatic over the left which is relatively miotic but both being light reactive and there is no gaze issue and no apparent seizure activity One more day of the Zosyn and will discontinue that Quality Stroke Does the patient have a stroke diagnosis?: No VTE Prior VTE?: No VTE Risk Level:: Medical - moderate - high VTE Device Contraindication: Treatment Not Indicated VTE Drug Contraindication: N/A - Med Ordered
[2022-08-20 16:54] LABS: Osmolality Urine 463 mosm/kg (373-1093)
[2022-08-20 18:03] LABS: Glucose, Whole Blood 178 mg/dL (60-115)
[2022-08-20] MEDS: dexmedeTOMIDidine HCL/NS 400 MCG/100 ML INFUS..BTL 22.14 MCG IVCONT (22:50)
[2022-08-20 23:24] LABS: Glucose, Whole Blood 186 mg/dL (60-115)
[2022-08-21] VITALS (31 sets, daily range): BP systolic 96–135; BP diastolic 46–73; PULSE 68–100; RESP 17–32; TEMP 34–37.7; O2SAT 89–98; BMI 45.4
[2022-08-21] MEDS: Acetaminophen 325 MG TABLET 650 MG PO (00:57)
[2022-08-21] MEDS: 0.9 % Sodium Chloride Flush 3 ML SYRINGE IVFLUSH ×3 (01:02→15:53)
[2022-08-21] MEDS: KCl 20 mEq in 5 % Dextrose 20 MEQ/1,000 ML IV.SOLN 100 MEQ IVCONT ×3 (01:06→21:34)
[2022-08-21] MEDS: dexmedeTOMIDidine HCL/NS 400 MCG/100 ML INFUS..BTL 22.14 MCG IVCONT (02:31)
[2022-08-21] MEDS: Piperacillin Sodium/Tazobactam 3.375 GM in 0.9 % Sodium Chloride 50 ML IV ×2 (03:52→09:48)
[2022-08-21 04:32] LABS: MANUAL DIFF FLAG NO
[2022-08-21 04:34] LABS: Basophils Absolute Auto 0.1 X10*3/uL (0.0-0.2); Basophils Percent Auto 0.4 % (0-2); Eosinophils Absolute Auto 0.4 X10*3/uL (0.0-0.4); Eosinophils Percent Auto 2.7 % (0-4); Hematocrit 30.7 % (37.0-47.0); Hemoglobin 9.1 g/dl (12.0-16.0); Imm Gran Abs Auto 0.15 X10*3/uL (0.00-0.03); Imm Gran Pct Auto 1.1 % (0.0-0.4); Lymphocytes Absolute Auto 1.2 X10*3/uL (1.2-4.9); Lymphocytes Percent Auto 8.8 % (20-40); Mean Corpuscular HGB Conc 29.6 g/dl (31.0-35.0); Mean Corpuscular Hemoglobin 30.3 pg (27.0-33.0); Mean Corpuscular Volume 102.3 fL (80.0-98.0); Mean Platelet Volume 10.3 fL (9.4-12.3); Monocytes Absolute Auto 0.9 X10*3/uL (0.1-1.2); Monocytes Percent Auto 6.7 % (2-11); NRBC Pct Auto 0.3 /100WBC (0.0-0.2); Neutrophils Absolute Auto 11.2 x10*3/uL (2.0-8.3); Neutrophils Percent Auto 80.3 % (45-73); Platelet Count 179 X10*3/uL (160-400); Red Cell Distribution Width 20.5 % (11.0-16.0)
[2022-08-21 04:36] LABS: Venous Blood Gas Refer to POC result
[2022-08-21 04:36] LABS: VBG Base Excess 3.1 mmol/L; VBG HCO3 29 mmol/L (22-26); VBG pCO2 50 mmHg; VBG pH 7.36 (7.32-7.43); VBG pO2 51 mmHg
[2022-08-21 04:56] LABS: Albumin Level 2.6 g/dL (3.5-5.0); Anion Gap 12 (12-20); Blood Urea Nitrogen 41 mg/dL (9-16); Calcium 8.3 mg/dL (8.4-10.2); Carbon Dioxide 27 mmol/L (22-29); Chloride 113 mmol/L (96-108); Creatinine Clr Calc Pharmacy 53.1; Estimated Glomerular Filt Rate 41; Glucose Random 204 mg/dL (60-115); Magnesium 2.5 mg/dL (1.6-2.6); Phosphorus 2.4 mg/dL (2.7-4.5); Potassium 3.2 mmol/L (3.3-5.1); Sodium 149 mmol/L (135-145)
[2022-08-21] MEDS: Chlorhexidine Gluc Oral Rinse 15 ML MOUTHWASH BUCCAL ×4 (05:21→21:27)
[2022-08-21] MEDS: Insulin Lispro 100 UNIT/ML 3 ML VIAL SUBCUT ×3 (05:22→23:47)
[2022-08-21] MEDS: Potassium Phosphate/NS 15 MMOL/250 ML PLAST..BAG 62.5 MMOL IV (05:22)
[2022-08-21] MEDS: dexmedeTOMIDidine HCL/NS 400 MCG/100 ML INFUS..BTL 15.81 MCG IVCONT (06:28)
[2022-08-21] MEDS: Potassium Chloride Packet 20 MEQ PACKET PO (07:20)
[2022-08-21] MEDS: Sucralfate Oral Suspension 1 GM/10 ML ORAL.SUSP PO ×2 (07:20→21:27)
[2022-08-21] MEDS: Lactulose 20 GM/30 ML SOLUTION 30 GM PO (07:20)
[2022-08-21] MEDS: Insulin Glargine,Hum.rec.anlog 100 UNIT/ML 10 ML VIAL 55 UNIT SUBCUT ×2 (07:21→21:27)
--- NOTE | 2022-08-21 08:33 | P.CDIC_ITS ---
CDI Concurrent Query Documentation Clarification: PHYSICIAN'S DOCUMENTATION REQUEST Date of Query: 08/21/22 0836 Patient Name: Ragini Little Admit Date: 08/10/22 Dear Doctor, A review of the medical record indicates additional documentation may be needed. Please review below and update the documentation accordingly. Clinical Indicators: A diagnosis of encephalopathy was documented on 08/16/22 but lacks specificity. Is there further clarification/specificity that correlates with the findings below: Risk Factors/Clinical Indicators/Treatments Per provider progress note on 08/16: Further improvement in encephalopathy. Per provider progress note on 08/18: Now with prolonged encephalopathy. Per provider progress note on 08/19: Clinical impression: acute encephalopathy poorly responsive off of all sedation Per RN shift assessments: Patient confused, lethargic, with a weak gag and unable to track or follow commands. Based on the above, please further specify, in the Progress Notes, the known or suspected type of the documented encephalopathy: * Metabolic * Toxic * Toxic metabolic * Other (please specify) * Unable to determine Use of terms such as suspected, likely, concern for, or probable (associated with a specific diagnosis that is being evaluated, monitored, or treated as if it exists) are acceptable and can be coded in the inpatient setting, when do cumented at the time of discharge. Thank you, Teodora Shah, MS, RN, CCRN Extension: [phone] Please use your independent medical judgment in providing your response. 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
[2022-08-21 08:49] LABS: Anion Gap 11 (12-20); Blood Urea Nitrogen 38 mg/dL (9-16); Calcium 8.3 mg/dL (8.4-10.2); Carbon Dioxide 27 mmol/L (22-29); Chloride 114 mmol/L (96-108); Creatinine Clr Calc Pharmacy 52.7; Estimated Glomerular Filt Rate 40; Glucose Random 184 mg/dL (60-115); Potassium 3.3 mmol/L (3.3-5.1); Sodium 149 mmol/L (135-145)
--- NOTE | 2022-08-21 09:09 | MHC.CLN ---
F/U PT REMAINS INTUBATED PT RECEIVING GLUCERNA AT MAX GOAL RATE 55ML/HR WITH 240ML FREE WATER FLUSHES Q 6 HRS PROVIDES 1320KCALS (23KCALS/KG BASED ON IBW), 55G PROTEIN (.9G/KG), 2085ML TOTAL FREE WATER FROM FORMULA AND FLUSHES (35KCALS/KG BASED ON IBW) MONITOR TOLERANCE, RESIDUALS AND LYTES
--- NOTE | 2022-08-21 09:13 | MHC.CM.PN ---
DP to be determined by patients recovery. A PT eval will be ordered when the patient is medically cleared. The patient continues on Mechanical Ventilation. A copy of her HCP was placed on the chart. The patient's son, Tino is listed as her HCP. CM will continue to follow.
[2022-08-21] MEDS: Nystatin Powder 15 GM BOTTLE 1 APPL TOPICAL ×2 (09:57→21:28)
--- NOTE | 2022-08-21 10:12 | P.PNCC_ITS ---
Subjective Subjective Date of Service: 08/21/22 Interval History: 72-year-old morbidly obese female presented with acute on chronic hypercarbic and hypoxic respiratory failure and severe acute on chronic cor pulmonale witnessed syncope with minimal exertion being helped to the bathroom resulting in cardiac arrest and a 6-7 minute CPR no targeted temperature therapy following been intubated greater than 10-11 days at this point since that time with persistent right ventricular heave bedside echo of course proving that there is predominant right heart failure but good urine output improving acute on chronic renal insufficiency none and because also diuresed to the point of significant hypernatremia she has been receiving free water to correct this in case it is contributing to her persistent encephalopathy which is really now the major problem so far she remains unresponsive and despite the persistent anisocoria pupils are reactive all cranial reflexes basically are maintained she does sometimes have slight attempted motion of all 4 extremities certainly nothing of a purposeful nature and I finally had Neurology come see her who basically said there will be no value to an MRI at this point and she is pending an EEG and a follow-up exam from Neurology and will try to gauge prognosis for meaningful recovery Critical Care Time (minutes): 45 Physical Exam Vital Signs: Vital Signs: Last Vital Signs Temp 99.5 F 08/21/22 09:00 Pulse 95 08/21/22 10:00 Resp 30 H 08/21/22 10:00 BP 112/50 L 08/21/22 10:00 Pulse Ox 97 08/21/22 10:00 O2 Del Method 08/21/22 10:00 O2 Flow Rate 4 08/12/22 11:17 FiO2 30 08/21/22 10:00 Oxygen Flow Rate 3 08/10/22 09:54 BMI result Body Mass Index 45.4 Finally normalization of the sodium down to 145 marked improvement in her serum potassium is well as renal function improves cardiovascular situation corroborated by bedside echo with predominant right ventricular heave and right ventricular failure still remains the same rhythm is still a controlled atrial fibrillation rates in the mid to high 80s on a low FiO2 between 30 and 40% oxygen saturations 96% pressure 119/48 and a mean of 67 Lungs without adventitious sounds Skin intact no acrocyanosis and no significant residual edema Abdomen soft tolerating feedings no organomegaly Objective Data Labs 08/21/22 04:15 08/21/22 08:25 Labs: Laboratory Results - last 24 hr 08/20/22 08/20/22 08/20/22 09:42 11:45 15:40 WBC RBC Hgb Hct MCV MCH MCHC RDW Plt Count MPV Immature Gran % (Auto) Neut % (Auto) Lymph % (Auto) [place] % (Auto) Eos % (Auto) Baso % (Auto) Lymph # (Auto) [place] # (Auto) Eos # (Auto) Baso # (Auto) Abs Immat Gran (auto) Absolute Neuts (auto) Absolute Nucleated RBC Nucleated RBC % (auto) VBG pH VBG pCO2 VBG pO2 VBG HCO3 VBG O2 Saturation VBG Base Excess Sodium 153 H Potassium 3.0 L Chloride 113 H Carbon Dioxide 29 Anion Gap 14 BUN 47 H Creatinine 1.40 Estim Creat Clear Calc 48.6 Estimated GFR 37 POC Glucose 202 H Random Glucose 237 H Calcium 8.4 Phosphorus Magnesium Albumin Urine Osmolality 463 08/20/22 08/20/22 08/21/22 18:00 23:17 04:15 WBC 14.0 H RBC 3.00 L Hgb 9.1 L Hct 30.7 L MCV 102.3 H MCH 30.3 MCHC 29.6 L RDW 20.5 H Plt Count 179 MPV 10.3 Immature Gran % (Auto) 1.1 H Neut % (Auto) 80.3 H Lymph % (Auto) 8.8 L [place] % (Auto) 6.7 Eos % (Auto) 2.7 Baso % (Auto) 0.4 Lymph # (Auto) 1.2 [place] # (Auto) 0.9 Eos # (Auto) 0.4 Baso # (Auto) 0.1 Abs Immat Gran (auto) 0.15 H Absolute Neuts (auto) 11.2 H Absolute Nucleated RBC 0.040 H Nucleated RBC % (auto) 0.3 H VBG pH VBG pCO2 VBG pO2 VBG HCO3 VBG O2 Saturation VBG Base Excess Sodium Potassium Chloride Carbon Dioxide Anion Gap BUN Creatinine Estim Creat Clear Calc Estimated GFR POC Glucose 178 H 186 H Random Glucose Calcium Phosphorus Magnesium Albumin Urine Osmolality 08/21/22 08/21/22 08/21/22 04:15 04:30 08:25 WBC RBC Hgb Hct MCV MCH MCHC RDW Plt Count MPV Immature Gran % (Auto) Neut % (Auto) Lymph % (Auto) [place] % (Auto) Eos % (Auto) Baso % (Auto) Lymph # (Auto) [place] # (Auto) Eos # (Auto) Baso # (Auto) Abs Immat Gran (auto) Absolute Neuts (auto) Absolute Nucleated RBC Nucleated RBC % (auto) VBG pH 7.36 VBG pCO2 50 VBG pO2 51 VBG HCO3 29 H VBG O2 Saturation 77.0 VBG Base Excess 3.1 Sodium 149 H 149 H Potassium 3.2 L 3.3 Chloride 113 H 114 H Carbon Dioxide 27 27 Anion Gap 12 11 L BUN 41 H 38 H Creatinine 1.28 1.30 Estim Creat Clear Calc 53.1 52.7 Estimated GFR 41 40 POC Glucose Random Glucose 204 H 184 H Calcium 8.3 L 8.3 L Phosphorus 2.4 L Magnesium 2.5 Albumin 2.6 L Urine Osmolality Microbiology Microbiology Results: Microbiology 08/10/22 11:41 Blood - Venous Blood Culture - Final No growth after 5 days. 08/10/22 10:46 Blood - Venous Blood Culture - Final No growth after 5 days. Progress Note: A&P Assessment and plan (1) Acute encephalopathy: Status: Acute (2) Aspiration pneumonitis: Status: Acute (3) CORINNA (acute kidney injury): Status: Acute (4) Acute anemia: Status: Acute (5) Cardiac arrest: Status: Acute (6) Acute on chronic respiratory failure with hypoxia and hypercapnia: Status: Acute (7) Volume overload: Status: Acute (8) Acute exacerbation of congestive heart failure: Status: Acute (9) Hypokalemia: Status: Acute (10) Acute on chronic diastolic (congestive) heart failure: Status: Acute (11) Acute on chronic right-sided heart failure: Status: Acute (12) Edema: Status: Acute (13) CHF (congestive heart failure): Status: Acute (14) Shortness of breath: Status: Acute (15) Decompensated heart failure: Status: Acute (16) Bradycardia: Status: Acute (17) (HFpEF) heart failure with preserved ejection fraction: Status: Acute (18) Chronic atrial fibrillation: Status: Acute (19) Supplemental oxygen dependent: Status: Acute (20) COPD (chronic obstructive pulmonary disease): Status: Acute (21) Diabetic neuropathy: Status: Acute (22) Vitamin D deficiency: Status: Acute (23) HLD (hyperlipidemia): Status: Acute (24) T2DM (type 2 diabetes mellitus): Status: Acute (25) group home (current) use of insulin: Status: Acute (26) Phlebitis of left leg: Status: Acute (27) Pulmonary hypertension: Status: Acute (28) Tricuspid regurgitation: Status: Acute (29) HTN (hypertension): Status: Acute (30) Diabetes mellitus: Status: Acute (31) Morbid obesity: Status: Acute (32) CKD (chronic kidney disease): Status: Acute (33) MELANIE (obstructive sleep apnea): Status: Acute Plan Plan at this point is to cut back on the free water continue to observe the cognitive function order an EEG and await the thoughts of the neurology consult Quality Stroke Does the patient have a stroke diagnosis?: No VTE Prior VTE?: No VTE Risk Level:: Medical - moderate - high VTE Device Contraindication: Treatment Not Indicated VTE Drug Contraindication: N/A - Med Ordered
[2022-08-21] MEDS: Lidocaine HCl/D5W 2 GM/250 ML IV.SOLN 7.5 GM IVCONT (10:22)
[2022-08-21 11:48] LABS: Glucose, Whole Blood 145 mg/dL (60-115)
[2022-08-21 17:43] LABS: Glucose, Whole Blood 169 mg/dL (60-115)
[2022-08-21] MEDS: fentaNYL citrate/PF 100 MCG/2 ML VIAL 50 MCG IVPUSH (20:20)
[2022-08-21 23:30] LABS: Glucose, Whole Blood 178 mg/dL (60-115)
[2022-08-22] VITALS (37 sets, daily range): BP systolic 97–138; BP diastolic 38–72; PULSE 82–96; RESP 12–28; TEMP 34.5–37.4; O2SAT 92–100; BMI 45.5
[2022-08-22 00:31] LABS: VBG HCO3 23 mmol/L (22-26); VBG pCO2 37 mmHg; VBG pH 7.39 (7.32-7.43); VBG pO2 50 mmHg
[2022-08-22 00:34] LABS: Venous Blood Gas Refer to POC result
[2022-08-22 00:53] LABS: Anion Gap 11 (12-20); Blood Urea Nitrogen 34 mg/dL (9-16); Calcium 8.1 mg/dL (8.4-10.2); Carbon Dioxide 24 mmol/L (22-29); Chloride 113 mmol/L (96-108); Estimated Glomerular Filt Rate 50; Glucose Random 172 mg/dL (60-115); Phosphorus 2.5 mg/dL (2.7-4.5); Potassium 3.3 mmol/L (3.3-5.1); Sodium 145 mmol/L (135-145)
[2022-08-22] MEDS: Potassium Phosphate/NS 15 MMOL/250 ML PLAST..BAG 62.5 MMOL IV (01:42)
[2022-08-22 04:29] LABS: VBG Base Excess -0.7 mmol/L; VBG HCO3 24 mmol/L (22-26); VBG pCO2 39 mmHg; VBG pH 7.39 (7.32-7.43); VBG pO2 50 mmHg
[2022-08-22 04:45] LABS: Venous Blood Gas Refer to POC result
[2022-08-22 04:58] LABS: MANUAL DIFF FLAG NO
[2022-08-22 05:07] LABS: Basophils Absolute Auto 0.1 X10*3/uL (0.0-0.2); Basophils Percent Auto 0.5 % (0-2); Eosinophils Absolute Auto 0.3 X10*3/uL (0.0-0.4); Eosinophils Percent Auto 1.7 % (0-4); Imm Gran Abs Auto 0.13 X10*3/uL (0.00-0.03); Imm Gran Pct Auto 0.8 % (0.0-0.4); Lymphocytes Percent Auto 6.5 % (20-40); Mean Corpuscular Hemoglobin 31.1 pg (27.0-33.0); Mean Corpuscular Volume 103.8 fL (80.0-98.0); Mean Platelet Volume 10.9 fL (9.4-12.3); Monocytes Absolute Auto 0.8 X10*3/uL (0.1-1.2); Monocytes Percent Auto 5.2 % (2-11); NRBC Pct Auto 0.3 /100WBC (0.0-0.2); Neutrophils Absolute Auto 13.7 x10*3/uL (2.0-8.3); Neutrophils Percent Auto 85.3 % (45-73); Platelet Count 198 X10*3/uL (160-400); Red Blood Count 2.89 X10*6/uL (4.20-5.50); White Blood Count 16.1 X10*3/uL (4.8-10.8)
[2022-08-22 05:21] LABS: Albumin Level 2.5 g/dL (3.5-5.0); Anion Gap 11 (12-20); Blood Urea Nitrogen 32 mg/dL (9-16); Calcium 8.1 mg/dL (8.4-10.2); Carbon Dioxide 25 mmol/L (22-29); Chloride 113 mmol/L (96-108); Estimated Glomerular Filt Rate 50; Glucose Random 162 mg/dL (60-115); Magnesium 2.4 mg/dL (1.6-2.6); Phosphorus 3.1 mg/dL (2.7-4.5); Potassium 3.4 mmol/L (3.3-5.1); Sodium 146 mmol/L (135-145)
[2022-08-22] MEDS: Albumin Human 25 % 100 ML IV (06:01)
[2022-08-22] MEDS: Potassium Chloride Packet 20 MEQ PACKET 40 MEQ PO (06:02)
[2022-08-22] MEDS: Insulin Lispro 100 UNIT/ML 3 ML VIAL SUBCUT (06:02)
--- NOTE | 2022-08-22 06:28 | PC.NURSE ---
assumed care 1900 pt positive cough weak gag, pupils sluggish bilaterally, left> right. slightly opens eyes to stimuli no tracking not following commands, remains on sedation vacation. continues on AC vent settings, desats with turning and coughing recovers with sectioning of thick inline secreations , Afib on tele 70sec run of svt this shift, remains on lidocane drip, bp stable on levo 0.21, cvp 8, IVF D/c this am. tolerating tube feeds well 2BMs this shift. UO >50cc per hour. complete bath given, repo q2 hours.
[2022-08-22] MEDS: Insulin Glargine,Hum.rec.anlog 100 UNIT/ML 10 ML VIAL 55 UNIT SUBCUT ×2 (07:52→19:20)
[2022-08-22] MEDS: Lidocaine HCl/D5W 2 GM/250 ML IV.SOLN 7.5 GM IVCONT (07:52)
[2022-08-22] MEDS: Sucralfate Oral Suspension 1 GM/10 ML ORAL.SUSP PO ×2 (07:52→19:19)
[2022-08-22] MEDS: Chlorhexidine Gluc Oral Rinse 15 ML MOUTHWASH BUCCAL ×3 (07:52→19:20)
[2022-08-22] MEDS: Nystatin Powder 15 GM BOTTLE 1 APPL TOPICAL ×2 (07:53→20:12)
--- NOTE | 2022-08-22 09:57 | PM.NEUROCN ---
History of Present Illness Data of Consult Service Date: 08/22/22 Primary Care Provider: Teri Max MD [facility] Reason for consult: Encephalopathy 72 years old woman who had cardiopulmonary arrest mostly resulting in difficulty breathing in oxygenating. She was intubated and brought to ICU. At this time she was intubated. Despite cessation of some sedation she was not responsive and this consultation was requested. There was no witnessing of any obvious convulsion. She was unable to provide any history. Review of Systems Review of Systems: Could not be done with her [facility] Past Medical History Medical History (HFpEF) heart failure with preserved ejection fraction Bradycardia CHF exacerbation CKD (chronic kidney disease) Congestive heart failure Congestive heart failure (CHF) COPD (chronic obstructive pulmonary disease) Diabetes mellitus HLD (hyperlipidemia) HTN (hypertension) MCC (current) use of insulin Morbid obesity Paroxysmal atrial fibrillation Persistent atrial fibrillation Phlebitis of left leg Pulmonary hypertension Right heart failure (secondary to left heart failure) Supplemental oxygen dependent T2DM (type 2 diabetes mellitus) Tricuspid regurgitation Vitamin D deficiency Family History Family History Father No problems noted. Mother No problems noted. Brother No problems noted. Son No problems noted. Other Substance use disorder Surgical History Surgical History History of colectomy (~1983) History of colonoscopy History of hernia repair (~07/2011) History of hysteroscopy (~2007) History of left breast biopsy (~04/09/11) History of left inguinal hernia repair (~01/28/20) Social History Social History Household Members: None Housing: Apartment Do you presently have visiting nurse or other home services: Yes Unable to assess alcohol history related to: Unknown Alcohol intake: former Patient Tobacco Use Status: Former Tobacco user Smoked in Last 30 Days: No e-Cigarette/Vaping Use: Never Used Use of substances other than those prescribed or required for medical reasons: No Currently Displaying Signs/Symptoms of Drug Intoxication Withdrawal: No Have you been hit, kicked, punched, or otherwise hurt by someone within the past year? If so, by whom?: No Do you feel safe in your current relationship?: No Current Relationship Is there a partner from a previous relationship who is making you feel unsafe now?: No Are you made to feel afraid or neglected: No Advance Directives: Yes Advance Directives on File: Yes Advance Directives Date on File: 02/09/21 Do you have thoughts of harming others: None Do you have a plan to hurt others: No Plan Recently lost weight without trying: No How much weight loss: Not applicable Eating poorly because of decreased appetite: No Nutrition screen score: 0 Nutrition Risks: Difficulty swallowing Patient : No service: No Current occupational status: retired Cognitive needs: No Hearing needs: No Vision needs: Yes Meds Allergies Allergy/AdvReac Type Severity Reaction Status Date / Time oxycodone [Percocet] Allergy Unknown nausea and Verified 07/04/22 10:02 vomiting Active Medications: Current Medications Acetaminophen (Acetaminophen 325 Mg Tablet) 650 mg PO Q6H PRN PRN Reason: Fever Last Admin: 08/21/22 00:57 Dose: 650 mg Chlorhexidine Gluconate (Chlorhexidine Gluc Oral Rinse 15 Ml Mouthwash) 15 ml BUCCAL TID SHILPA Last Admin: 08/22/22 07:52 Dose: 15 ml Dextrose (Dextrose 50 % 25 Gm/50 Ml Syringe) 25 gm IVPUSH Q15M PRN; Protocol PRN Reason: per Hypoglycemia Standing Ord. Glucose (Glucose Gel 15 Gm Gel..Gram.) 15 gm PO Q15M PRN; Protocol PRN Reason: per Hypoglycemia Standing Ord. Norepinephrine Bitartrate 32 (mg/ Sodium Chloride) 250 mls @ 0 mls/hr IV .Q0M SHILPA; Protocol Last Titration: 08/22/22 08:42 Dose: 0.19 mcg/kg/min, 12.23 mls/hr Dexmedetomidine HCl (Precedex) 400 mcg in 100 mls @ 0 mls/hr IVCONT .Q0M SHILPA; Protocol Last Titration: 08/22/22 07:13 Dose: Infused Lidocaine HCl/Dextrose (Lidocaine Hcl/D5w) 2 gm in 250 mls @ 7.5 mls/hr IVCONT .Q24H SHILPA; Protocol Last Admin: 08/22/22 07:52 Dose: 1 mg/min, 7.5 mls/hr Insulin Glargine (Insulin Glargine,Hum.Rec.Anlog 100 Unit/Ml 10 Ml Vial) 55 unit SUBCUT BID [facility] Last Admin: 08/22/22 07:52 Dose: 55 unit Insulin Human Lispro (Insulin Lispro 100 Unit/Ml 3 Ml Vial) 0 unit SUBCUT Q6H [facility]; Protocol Last Admin: 08/22/22 06:02 Dose: 2 unit Lactulose (Lactulose 20 Gm/30 Ml Solution) 30 gm PO BID [facility] Last Admin: 08/22/22 07:10 Dose: Not Given Lidocaine HCl (Lidocaine Hcl/Pf 100 Mg/5 Ml Syringe) 126.3 mg 1 mg/kg (126.3 mg) IV Q15M PRN PRN Reason: Ventricular Tachycardia Last Admin: 08/20/22 10:02 Dose: 100 mg Nystatin (Nystatin Powder 15 Gm Bottle) 1 appl TOPICAL BID [facility]; Protocol Last Admin: 08/22/22 07:53 Dose: 1 appl Omeprazole (Omeprazole 20 Mg/10 Ml Susp.Recon) 40 mg PO DAILY@0630 [facility] Last Admin: 08/22/22 06:01 Dose: 40 mg Ondansetron HCl (Ondansetron Hcl 4 Mg/2 Ml Vial) 4 mg IVPUSH Q8H PRN PRN Reason: Nausea and Vomiting Pharmacy Consult (Consult Rx Perform Med Rec) 1 each MISCELLANE ONCE PRN PRN Reason: Consult order Sodium Chloride (0.9 % Sodium Chloride Flush 3 Ml Syringe) 3 ml IVFLUSH QSHIFT [facility] Last Admin: 08/22/22 07:10 Dose: Not Given Sucralfate (Sucralfate Oral Suspension 1 Gm/10 Ml Oral.Susp) 1 gm PO BID [facility] Last Admin: 08/22/22 07:52 Dose: 1 gm Home Medications Medication Instructions Recorded Confirmed Last Taken Type cholecalciferol (vitamin D3) 25 25 mcg PO DAILY 04/24/20 08/10/22 08/10/22 09:00 History mcg (1,000 unit) capsule vitamin B complex 1 tab PO DAILY 04/24/20 08/10/22 08/10/22 09:00 History zinc acetate 50 mg (zinc) capsule 50 mg PO DAILY 04/24/20 08/10/22 08/09/22 History multivitamin 1 tab PO DAILY 06/13/20 08/10/22 08/10/22 09:00 History ferrous sulfate 325 mg (65 mg 325 mg PO DAILY 09/14/20 08/10/22 08/10/22 09:00 History iron) tablet (Feosol) docusate sodium 100 mg capsule 100 mg PO DAILY 05/31/21 08/10/22 08/10/22 09:00 History (Colace) allopurinol 100 mg tablet 100 mg PO DAILY 09/24/21 08/10/22 08/10/22 09:00 History insulin aspart U-100 100 unit/mL 4 - 12 unit subcut TIDAC 06/05/22 08/10/22 08/10/22 09:00 History (3 mL) subcutaneous pen (Novolog FlexPen U-100 Insulin aspart) rivaroxaban 15 mg tablet (Xarelto) 15 mg PO DAILY@1800 08/10/22 08/10/22 08/09/22 History spironolactone 25 mg tablet 12.5 mg PO DAILY 08/10/22 08/10/22 08/10/22 09:00 History Physical Exam Vital Signs: Vital Signs: Last Vital Signs Temp 99.0 F 08/22/22 09:00 Pulse 96 08/22/22 09:00 Resp 23 H 08/22/22 09:00 BP 110/52 L 08/22/22 09:00 Pulse Ox 95 08/22/22 09:00 O2 Del Method 08/22/22 09:00 O2 Flow Rate 4 08/12/22 11:17 FiO2 40 08/22/22 09:00 Oxygen Flow Rate 3 08/10/22 09:54 BMI result Body Mass Index 45.5 Neuro: Other: She is intubated and unresponsive to verbal stimuli. With painful stimuli there is some grimacing. Both pupils are about 5 mm round and reactive directly and indirectly. There is little bit of left gaze deviation. No nystagmus is noted. Corneal reflexes are present. Gag reflex is present. She does not respond to pain with the there is extremity. Reflexes are absent with flat plantars. There is no abnormal posturing. Results Labs 08/22/22 04:25 08/22/22 04:25 Labs: Short CBC 08/22/22 Range/Units 04:25 WBC 16.1 H (4.8-10.8) X10*3/uL Hgb 9.0 L (12.0-16.0) g/dl Hct 30.0 L (37.0-47.0) % Plt Count 198 (160-400) X10*3/uL BMP 08/22/22 08/22/22 00:25 04:25 Sodium 145 146 H Potassium 3.3 3.4 Chloride 113 H 113 H Carbon Dioxide 24 25 BUN 34 H 32 H Creatinine 1.07 1.07 Calcium 8.1 L 8.1 L Liver Function 08/22/22 Range/Units 04:25 Albumin 2.5 L (3.5-5.0) g/dL Head CT revealed moderately severe cortical diffuse underlying cerebral atrophy some microvascular ischemic changes but new left lower middle cerebral artery area hypodensity. This involved large part of temporal lobe. Microbiology Microbiology Results: Microbiology 08/10/22 11:41 Blood - Venous Blood Culture - Final No growth after 5 days. 08/10/22 10:46 Blood - Venous Blood Culture - Final No growth after 5 days. Assessment and Plan (1) Acute encephalopathy: Status: Acute 72 years old woman whose baseline head CT revealed moderately severe atrophy from cerebral degeneration, which typically can present or cause cognitive symptoms. This time she was intubated because of pulmonary arrest. She also has significant cardiac dysfunction. Her examination revealed lack of verbal response, minimal response to pain, and relatively intact brainstem function. 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 This type of infarct would typically result in sensory or Wernicke's type of aphasia and quite significant difficulty with communication. It could also impact motor part of aphasia in some patients. She also was hypernatremic resulting in metabolic toxic element of encephalopathy. With treatment, metabolic toxic issues can be taken care of but underlying physical injury to brain from chronic degeneration and this new large stroke would likely permanently change her mental abilities. Even she survives this ordeal, she might have tremendous difficulty with communication and resulting mentation. I recommend conservative or other comfort measures. Time Spent With Patient Time: Total time managing care of this patient today ____ minutes. Procedures Date of Service Date of Service: 08/22/22
[2022-08-22 11:53] LABS: Glucose, Whole Blood 148 mg/dL (60-115)
--- NOTE | 2022-08-22 16:03 | PM.CCPN ---
Subjective Subjective Date of Service: 08/22/22 Interval History: 72-year-old morbidly obese female type 2 diabetic and hypertensive longstanding COPD with obesity/hypoventilation and obstructive sleep apnea who basically as overwhelming predominant right heart failure with very visible right ventricular heave who suffered a cardiac arrest upstairs with the minimal exertion and bilateral help to get just to walk to the bathroom usually it is a grave prognostic sign for right ventricular function but this was part and parcel of an acute on chronic hypercarbic and hypoxic respiratory failure she was intubated and resuscitated within 6-7 minutes never regained of her cognitive function and I appreciate the note from Neurology that indicates that if she were to survive she certainly would have very extensive cognitive difficulties she has a new left-sided middle cerebral artery infarct which is large as well as extensive degenerative disease see feels prognosis for neurological recovery is poor all we have is preservation of brainstem reflexes right now All other metabolic issues including the ability the no to wean the ED ventilated down to a minimal FiO2 and min ventilatory requirement cardiac function compensating after aggressive diuresis that resulted in hypernatremia and that has since been corrected with free water and there was also some require potassium replacement so metabolically she is secured and there is no further contribution to her encephalopathy other than the primary physical dysfunction of the brain itself and of course she still does not respond significantly to painful and certainly not to verbal stimuli Critical Care Time (minutes): 45 Physical Exam Vital Signs: Vital Signs: Last Vital Signs Temp 99.0 F 08/22/22 15:00 Pulse 89 08/22/22 15:00 Resp 25 H 08/22/22 15:00 BP 116/53 L 08/22/22 15:00 Pulse Ox 95 08/22/22 15:00 O2 Del Method 08/22/22 15:00 O2 Flow Rate 4 08/12/22 11:17 FiO2 40 08/22/22 15:22 Oxygen Flow Rate 3 08/10/22 09:54 BMI result Body Mass Index 45.5 Again unresponsive still on the ventilator and apparently ventilator dependent Again lungs with almost absent breath sounds bilaterally no adventitious sounds Cardiac with very prominent right ventricular heave a due to the severe cor pulmonale with somewhat diminished bilateral carotid upstrokes even though vitals are well preserved Abdomen soft with no again a megaly and tolerating her feedings Objective Data Labs 08/22/22 04:25 08/22/22 04:25 Labs: Laboratory Results - last 24 hr 08/21/22 08/21/22 08/22/22 17:39 23:20 00:24 WBC RBC Hgb Hct MCV MCH MCHC RDW Plt Count MPV Immature Gran % (Auto) Neut % (Auto) Lymph % (Auto) Barren % (Auto) Eos % (Auto) Baso % (Auto) Lymph # (Auto) Barren # (Auto) Eos # (Auto) Baso # (Auto) Abs Immat Gran (auto) Absolute Neuts (auto) Absolute Nucleated RBC Nucleated RBC % (auto) VBG pH 7.39 VBG pCO2 37 VBG pO2 50 VBG HCO3 23 VBG O2 Saturation 80.0 VBG Base Excess -1.0 Sodium Potassium Chloride Carbon Dioxide Anion Gap BUN Creatinine Estim Creat Clear Calc Estimated GFR POC Glucose 169 H 178 H Random Glucose Calcium Phosphorus Magnesium Albumin 08/22/22 08/22/22 08/22/22 00:25 04:22 04:25 WBC 16.1 H RBC 2.89 L Hgb 9.0 L Hct 30.0 L MCV 103.8 H MCH 31.1 MCHC 30.0 L RDW 21.0 H Plt Count 198 MPV 10.9 Immature Gran % (Auto) 0.8 H Neut % (Auto) 85.3 H Lymph % (Auto) 6.5 L Barren % (Auto) 5.2 Eos % (Auto) 1.7 Baso % (Auto) 0.5 Lymph # (Auto) 1.0 L Barren # (Auto) 0.8 Eos # (Auto) 0.3 Baso # (Auto) 0.1 Abs Immat Gran (auto) 0.13 H Absolute Neuts (auto) 13.7 H Absolute Nucleated RBC 0.050 H Nucleated RBC % (auto) 0.3 H VBG pH 7.39 VBG pCO2 39 VBG pO2 50 VBG HCO3 24 VBG O2 Saturation 80.0 VBG Base Excess -0.7 Sodium 145 Potassium 3.3 Chloride 113 H Carbon Dioxide 24 Anion Gap 11 L BUN 34 H Creatinine 1.07 Estim Creat Clear Calc 64.0 Estimated GFR 50 POC Glucose Random Glucose 172 H Calcium 8.1 L Phosphorus 2.5 L Magnesium Albumin 08/22/22 08/22/22 04:25 11:41 WBC RBC Hgb Hct MCV MCH MCHC RDW Plt Count MPV Immature Gran % (Auto) Neut % (Auto) Lymph % (Auto) Barren % (Auto) Eos % (Auto) Baso % (Auto) Lymph # (Auto) Barren # (Auto) Eos # (Auto) Baso # (Auto) Abs Immat Gran (auto) Absolute Neuts (auto) Absolute Nucleated RBC Nucleated RBC % (auto) VBG pH VBG pCO2 VBG pO2 VBG HCO3 VBG O2 Saturation VBG Base Excess Sodium 146 H Potassium 3.4 Chloride 113 H Carbon Dioxide 25 Anion Gap 11 L BUN 32 H Creatinine 1.07 Estim Creat Clear Calc 64.0 Estimated GFR 50 POC Glucose 148 H Random Glucose 162 H Calcium 8.1 L Phosphorus 3.1 Magnesium 2.4 Albumin 2.5 L Microbiology Microbiology Results: Microbiology 08/10/22 11:41 Blood - Venous Blood Culture - Final No growth after 5 days. 08/10/22 10:46 Blood - Venous Blood Culture - Final No growth after 5 days. Progress Note: A&P Assessment and plan (1) Acute encephalopathy: Status: Acute (2) Aspiration pneumonitis: Status: Acute (3) CORINNA (acute kidney injury): Status: Acute (4) Acute anemia: Status: Acute (5) Cardiac arrest: Status: Acute (6) Acute on chronic respiratory failure with hypoxia and hypercapnia: Status: Acute (7) Volume overload: Status: Acute (8) Acute exacerbation of congestive heart failure: Status: Acute (9) Hypokalemia: Status: Acute (10) Acute on chronic diastolic (congestive) heart failure: Status: Acute (11) Acute on chronic right-sided heart failure: Status: Acute (12) Edema: Status: Acute (13) CHF (congestive heart failure): Status: Acute (14) Shortness of breath: Status: Acute (15) Decompensated heart failure: Status: Acute (16) Bradycardia: Status: Acute (17) (HFpEF) heart failure with preserved ejection fraction: Status: Acute (18) Chronic atrial fibrillation: Status: Acute (19) Supplemental oxygen dependent: Status: Acute (20) COPD (chronic obstructive pulmonary disease): Status: Acute (21) Lumbar pain: Status: Acute (22) Hospital discharge follow-up: Status: Acute (23) Hypokalemia: Status: Acute (24) Hip pain, right: Status: Acute (25) Diabetic neuropathy: Status: Acute (26) Vitamin D deficiency: Status: Acute (27) HLD (hyperlipidemia): Status: Acute (28) T2DM (type 2 diabetes mellitus): Status: Acute (29) 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: Status: Acute (30) Phlebitis of left leg: Status: Acute (31) Pulmonary hypertension: Status: Acute (32) Tricuspid regurgitation: Status: Acute (33) HTN (hypertension): Status: Acute (34) Diabetes mellitus: Status: Acute (35) Morbid obesity: Status: Acute (36) CKD (chronic kidney disease): Status: Acute (37) MELANIE (obstructive sleep apnea): Status: Acute Plan So at this point I think it is next best to discuss these findings with family and potentially come to a conclusion about going the route of of comfort measures and I will await the arrival of 1 of the family members preferably the healthcare proxy to have this discussion Quality Stroke Does the patient have a stroke diagnosis?: No VTE Prior VTE?: No VTE Risk Level:: Medical - moderate - high VTE Device Contraindication: Treatment Not Indicated VTE Drug Contraindication: N/A - Med Ordered
--- NOTE | 2022-08-22 16:44 | PC.NURSE ---
Md informed of pt's HR below 80s. ?'ed turning off Lido drip per protocol. Md stated to maintain the lowest dose, 0.5, until morning.
[2022-08-22 18:02] LABS: Glucose, Whole Blood 118 mg/dL (60-115)
[2022-08-22] MEDS: 0.9 % Sodium Chloride Flush 3 ML SYRINGE IVFLUSH (23:32)
[2022-08-22 23:49] LABS: Glucose, Whole Blood 91 mg/dL (60-115)
[2022-08-23] VITALS (31 sets, daily range): BP systolic 107–137; BP diastolic 32–72; PULSE 82–103; RESP 10–26; TEMP 34.7–38; O2SAT 92–99
--- NOTE | 2022-08-23 | EEG_ITS ---
FINDINGS: This is a 16-channel EEG with an EKG lead. Patient is reported unresponsive and intubated during the tracing. Background EEG rhythm is 7 to 8 Hz mixed theta delta with no obvious asymmetry or paroxysmal tendency. Some movement in lead artifacts are noted. Photic stimulation does not produce any significant driving. Hypoventilation is not performed. Cardiac lead tracing was not visualized. IMPRESSION: Moderate generalized slowing with no epileptic tendency. MD MILEY Brown/SANTY / [id number]
[2022-08-23 05:03] LABS: VBG Base Excess 0.1 mmol/L; VBG HCO3 24 mmol/L (22-26); VBG pCO2 38 mmHg; VBG pH 7.41 (7.32-7.43); VBG pO2 55 mmHg
[2022-08-23 05:05] LABS: MANUAL DIFF FLAG NO
[2022-08-23 05:10] LABS: Basophils Percent Auto 0.3 % (0-2); Eosinophils Absolute Auto 0.2 X10*3/uL (0.0-0.4); Eosinophils Percent Auto 1.8 % (0-4); Hematocrit 29.6 % (37.0-47.0); Imm Gran Abs Auto 0.11 X10*3/uL (0.00-0.03); Imm Gran Pct Auto 0.8 % (0.0-0.4); Lymphocytes Absolute Auto 1.1 X10*3/uL (1.2-4.9); Lymphocytes Percent Auto 8.1 % (20-40); Mean Corpuscular HGB Conc 30.4 g/dl (31.0-35.0); Mean Corpuscular Volume 102.1 fL (80.0-98.0); Mean Platelet Volume 10.5 fL (9.4-12.3); Monocytes Absolute Auto 0.9 X10*3/uL (0.1-1.2); NRBC Pct Auto 0.2 /100WBC (0.0-0.2); Neutrophils Absolute Auto 10.9 x10*3/uL (2.0-8.3); Platelet Count 195 X10*3/uL (160-400); Red Cell Distribution Width 22.1 % (11.0-16.0); White Blood Count 13.3 X10*3/uL (4.8-10.8)
[2022-08-23 05:11] LABS: Venous Blood Gas Refer to POC result
[2022-08-23 05:27] LABS: Albumin Level 2.6 g/dL (3.5-5.0); Anion Gap 13 (12-20); Blood Urea Nitrogen 26 mg/dL (9-16); Calcium 8.4 mg/dL (8.4-10.2); Carbon Dioxide 24 mmol/L (22-29); Chloride 113 mmol/L (96-108); Creatinine Clr Calc Pharmacy 83.6; Estimated Glomerular Filt Rate > 60; Glucose Random 64 mg/dL (60-115); Magnesium 2.4 mg/dL (1.6-2.6); Phosphorus 2.5 mg/dL (2.7-4.5); Potassium 3.5 mmol/L (3.3-5.1); Sodium 146 mmol/L (135-145)
[2022-08-23] MEDS: Dextrose 50 % 25 GM/50 ML SYRINGE IVPUSH (05:37)
[2022-08-23] MEDS: Potassium Phosphate/NS 15 MMOL/250 ML PLAST..BAG 62.5 MMOL IV (05:59)
[2022-08-23 06:18] LABS: Glucose, Whole Blood 130 mg/dL (60-115)
[2022-08-23 07:14] LABS: Glucose, Whole Blood 124 mg/dL (60-115)
[2022-08-23] MEDS: Nystatin Powder 15 GM BOTTLE 1 APPL TOPICAL ×2 (07:23→21:01)
[2022-08-23] MEDS: 0.9 % Sodium Chloride Flush 3 ML SYRINGE IVFLUSH ×3 (07:23→23:25)
[2022-08-23] MEDS: Chlorhexidine Gluc Oral Rinse 15 ML MOUTHWASH BUCCAL ×3 (07:32→21:00)
[2022-08-23] MEDS: Sucralfate Oral Suspension 1 GM/10 ML ORAL.SUSP PO ×2 (07:32→21:01)
--- NOTE | 2022-08-23 08:55 | MHC.CLN ---
Addendum entered by Rani Dalal, HARRIS 08/23/22 10:49: DISCUSSED CASE WITH NSG WHO REPORTS PT WITH LOW BS RECOMMEND SWITCHING TF FORMULA TO PROMOTE AT MAX GOAL RATE 55ML/HR WITH 240ML FREE WATER Q 8 HRS TO PROVIDE 1320KCLAS (22.4KCALS/KG BASED ON IBW), 82.5G PROTEIN (1.4G/KG), 1827ML TOTAL WATER FROM FORMULA AND FLUSHES (31ML/HR) MONITOR TOLERANCE, RESIDUALS AND LYTES RD CAN BE REACHED VIA TIGER CONNECT IF NEEDED DURING OFF HOURS Original Note: F/U PT REMAINS INTUBATED PT RECEIVING GLUCERNA AT MAX GOAL RATE 55ML/HR WITH 240ML FREE WATER FLUSHES Q 6 HRS PROVIDES 1320KCALS (23KCALS/KG BASED ON IBW), 55G PROTEIN (.9G/KG), 2085ML TOTAL FREE WATER FROM FORMULA AND FLUSHES (35KCALS/KG BASED ON IBW) MONITOR TOLERANCE, RESIDUALS AND LYTES RECOMMEND REDUCING FREE WATER FLUSHES 240 Q 8 HRS TO PROVIDE 1845ML TOTAL WATER FROM FORMULA AND FLUSHES (31ML/KG BASED ON IBW)
[2022-08-23 09:08] LABS: Glucose, Whole Blood 94 mg/dL (60-115)
[2022-08-23 10:05] LABS: Glucose, Whole Blood 102 mg/dL (60-115)
[2022-08-23 12:03] LABS: Glucose, Whole Blood 103 mg/dL (60-115)
--- NOTE | 2022-08-23 13:53 | MHC.CM.PN ---
EMR REVIEWED, PT REMAINS ON MECH VENT, PER CC PROVIDER PLAN TO DISCUSS [employer] W/FAMILY/HCP, NO PLAN FOR D/C, CM WILL CONT TO FOLLOW D/C NEEDS.
[2022-08-23] MEDS: Lidocaine HCl/D5W 2 GM/250 ML IV.SOLN 3.75 GM IVCONT (14:28)
[2022-08-23 16:16] LABS: Glucose, Whole Blood 104 mg/dL (60-115)
--- NOTE | 2022-08-23 16:23 | P.PNCC_ITS ---
Subjective Subjective Date of Service: 08/23/22 Interval History: 72-year-old morbidly obese female type 2 diabetic longstanding obstructive sleep apnea and obesity/hypoventilation and came in with increasing dyspnea after another recent hospitalization spent 2 days up stairs in the medical floor and then of just walking to the bathroom collapsed cardiac arrest 7 minute resuscitation which included intubation and she has had a severe predominant right heart failure with a recent 30 lb diuresis and then within a week or 2 or 30 lb regain of the weight with marked anasarca of very prominent right ventricular heave so clearly she had end-stage right heart disease which was the predominantly failing side and this minimal exercise precipitated this issue and this is in the face of of chronic but controlled atrial fibrillation as well and chronic stage III renal failure probably a diabetic manifestation She was on Xarelto on the outside and for the 1st 2 days in the hospital from the to but ever since the the arrest in the intubation etc. she there was so much blood that was being suctioned from the endotracheal tube from the upper airway that they had to discontinue anticoagulation altogether the patient really never regain cognitive function it has been almost a week off of sedation at this point still will have a minimal grimace to very deep pain that is the e xtent certainly nothing to loud verbal or to touch we have a dysfunctional a or encephalopathic EEG but certainly brain activity is present and the cranial nerve reflexes still remain intact Over the week after having been diuresed aggressively she became markedly hypernatremic and required replenishment of free water as well as replacement of severe hypokalemia hypophosphatemia etc. us a so we wanted to fairly evaluate that mental status after repairing anything contributing to encephalopathy In the we have no nonconvulsive epilepsy so were not missing that diagnosis she does have evidence of hypoxic damage but there is a question of a left-sided middle cerebral territory infarct that she had sustained at and the as well as very severe degenerative disease and neurology saw her and felt that the prognosis for meaningful recovery is is poor at best Still remains with very prominent right ventricular heave and that is despite the the 11 date maintenance on the on the ventilator which helped of course in the in making inappropriate diuresis and also probably unloading a degree of pulmonary hypertension but that right heart is end-stage at this point Critical Care Time (minutes): 45 Physical Exam Vital Signs: Vital Signs: Last Vital Signs Temp 99.5 F 08/23/22 16:00 Pulse 90 08/23/22 16:00 Resp 19 08/23/22 16:00 BP 125/54 L 08/23/22 16:00 Pulse Ox 96 08/23/22 16:00 O2 Del Method 08/23/22 16:00 O2 Flow Rate 4 08/12/22 11:17 FiO2 40 08/23/22 16:05 Oxygen Flow Rate 3 08/10/22 09:54 BMI result Body Mass Index 45.5 Remaining unresponsive Bedside echo normal LV systolic function no primary valve or pericardial disease but a gigantic right heart with marked right ventricular hypokinesis and 4+ tricuspid insufficiency Abdomen soft no again a megaly Lungs with without accessory muscle or diaphragmatic effort no adventitious sounds Objective Data Labs 08/23/22 04:45 08/23/22 04:45 Labs: Laboratory Results - last 24 hr 08/22/22 08/22/22 08/23/22 17:52 23:27 04:45 WBC 13.3 H RBC 2.90 L Hgb 9.0 L Hct 29.6 L MCV 102.1 H MCH 31.0 MCHC 30.4 L RDW 22.1 H Plt Count 195 MPV 10.5 Immature Gran % (Auto) 0.8 H Neut % (Auto) 82.0 H Lymph % (Auto) 8.1 L [place] % (Auto) 7.0 Eos % (Auto) 1.8 Baso % (Auto) 0.3 Lymph # (Auto) 1.1 L [place] # (Auto) 0.9 Eos # (Auto) 0.2 Baso # (Auto) 0.0 Abs Immat Gran (auto) 0.11 H Absolute Neuts (auto) 10.9 H Absolute Nucleated RBC 0.020 H Nucleated RBC % (auto) 0.2 VBG pH VBG pCO2 VBG pO2 VBG HCO3 VBG O2 Saturation VBG Base Excess Sodium Potassium Chloride Carbon Dioxide Anion Gap BUN Creatinine Estim Creat Clear Calc Estimated GFR POC Glucose 118 H 91 Random Glucose Calcium Phosphorus Magnesium Albumin 08/23/22 08/23/22 08/23/22 04:45 04:55 06:11 WBC RBC Hgb Hct MCV MCH MCHC RDW Plt Count MPV Immature Gran % (Auto) Neut % (Auto) Lymph % (Auto) [place] % (Auto) Eos % (Auto) Baso % (Auto) Lymph # (Auto) [place] # (Auto) Eos # (Auto) Baso # (Auto) Abs Immat Gran (auto) Absolute Neuts (auto) Absolute Nucleated RBC Nucleated RBC % (auto) VBG pH 7.41 VBG pCO2 38 VBG pO2 55 VBG HCO3 24 VBG O2 Saturation 85.0 VBG Base Excess 0.1 Sodium 146 H Potassium 3.5 Chloride 113 H Carbon Dioxide 24 Anion Gap 13 BUN 26 H Creatinine 0.82 Estim Creat Clear Calc 83.6 Estimated GFR > 60 POC Glucose 130 H Random Glucose 64 Calcium 8.4 Phosphorus 2.5 L Magnesium 2.4 Albumin 2.6 L 08/23/22 08/23/22 08/23/22 07:10 09:02 10:02 WBC RBC Hgb Hct MCV MCH MCHC RDW Plt Count MPV Immature Gran % (Auto) Neut % (Auto) Lymph % (Auto) [place] % (Auto) Eos % (Auto) Baso % (Auto) Lymph # (Auto) [place] # (Auto) Eos # (Auto) Baso # (Auto) Abs Immat Gran (auto) Absolute Neuts (auto) Absolute Nucleated RBC Nucleated RBC % (auto) VBG pH VBG pCO2 VBG pO2 VBG HCO3 VBG O2 Saturation VBG Base Excess Sodium Potassium Chloride Carbon Dioxide Anion Gap BUN Creatinine Estim Creat Clear Calc Estimated GFR POC Glucose 124 H 94 102 Random Glucose Calcium Phosphorus Magnesium Albumin 08/23/22 08/23/22 12:00 16:12 WBC RBC Hgb Hct MCV MCH MCHC RDW Plt Count MPV Immature Gran % (Auto) Neut % (Auto) Lymph % (Auto) [place] % (Auto) Eos % (Auto) Baso % (Auto) Lymph # (Auto) [place] # (Auto) Eos # (Auto) Baso # (Auto) Abs Immat Gran (auto) Absolute Neuts (auto) Absolute Nucleated RBC Nucleated RBC % (auto) VBG pH VBG pCO2 VBG pO2 VBG HCO3 VBG O2 Saturation VBG Base Excess Sodium Potassium Chloride Carbon Dioxide Anion Gap BUN Creatinine Estim Creat Clear Calc Estimated GFR POC Glucose 103 104 Random Glucose Calcium Phosphorus Magnesium Albumin Microbiology Microbiology Results: Microbiology 08/10/22 11:41 Blood - Venous Blood Culture - Final No growth after 5 days. 08/10/22 10:46 Blood - Venous Blood Culture - Final No growth after 5 days. Progress Note: A&P Assessment and plan (1) Acute encephalopathy: Status: Acute (2) Aspiration pneumonitis: Status: Acute (3) CORINNA (acute kidney injury): Status: Acute (4) Acute anemia: Status: Acute (5) Cardiac arrest: Status: Acute (6) Acute on chronic respiratory failure with hypoxia and hypercapnia: Status: Acute (7) Volume overload: Status: Acute (8) Acute exacerbation of congestive heart failure: Status: Acute (9) Hypokalemia: Status: Acute (10) Acute on chronic diastolic (congestive) heart failure: Status: Acute (11) Acute on chronic right-sided heart failure: Status: Acute (12) Edema: Status: Acute (13) CHF (congestive heart failure): Status: Acute (14) Shortness of breath: Status: Acute (15) Decompensated heart failure: Status: Acute (16) Bradycardia: Status: Acute (17) (HFpEF) heart failure with preserved ejection fraction: Status: Acute (18) Chronic atrial fibrillation: Status: Acute (19) Supplemental oxygen dependent: Status: Acute (20) COPD (chronic obstructive pulmonary disease): Status: Acute (21) Lumbar pain: Status: Acute (22) Hospital discharge follow-up: Status: Acute (23) Hypokalemia: Status: Acute (24) Hip pain, right: Status: Acute (25) Diabetic neuropathy: Status: Acute (26) Vitamin D deficiency: Status: Acute (27) HLD (hyperlipidemia): Status: Acute (28) T2DM (type 2 diabetes mellitus): Status: Acute (29) long term acute care registered nurse (current) use of insulin: Status: Acute (30) Phlebitis of left leg: Status: Acute (31) Pulmonary hypertension: Status: Acute (32) HTN (hypertension): Status: Acute (33) Tricuspid regurgitation: Status: Acute (34) Diabetes mellitus: Status: Acute (35) Morbid obesity: Status: Acute (36) CKD (chronic kidney disease): Status: Acute (37) MELANIE (obstructive sleep apnea): Status: Acute Plan So ultimately with having reversed all metabolic issues and being off of sedatio n now for nearly a week we have no return of any level of cognitive function and is looking more more like the prognosis for that is grave aside from which we have end-stage right heart failure I think that exertional arrest is certainly in an indication and I am sure was on the basis of right ventricular infarct in the she also had very significant runs of sustained ventricular tachycardia which failed to clear in fact she developed a little bit of polymorphic morphology when she was on amiodarone so I stopped that and put her on lidocaine which she has now been on this is the 3rd day without a single bit of ectopy and she is doing well from that standpoint but the right ventricle still is is a is an end-stage failure organ and I will have to discuss it was such with the family Quality Stroke Does the patient have a stroke diagnosis?: No VTE Prior VTE?: No VTE Risk Level:: Medical - moderate - high VTE Device Contraindication: Treatment Not Indicated VTE Drug Contraindication: N/A - Med Ordered
[2022-08-23 18:01] LABS: Glucose, Whole Blood 109 mg/dL (60-115)
--- NOTE | 2022-08-23 18:30 | PC.NURSE ---
Pt continues to be on AC vent settings 14/400/35/0, coughing but tolerating; satting in the mid 90s. ETT with blood tinged to thick moderate creamish secretions, suctioned PRN. Pt on tele: Afib with occasional PVCs, continues to be on Levophed gtt and Lidocaine gtt. Pt's POC soft (see lab), made aware, TF changed from Glucerna to Promote, tolerating and POC stable in the low 100s. No TF residuals at this time. EEG was performed at bedside (see report). Pt continues to be unable to track or follow commands. Family at bedside, updated them and revisited plan of care, pt's code changed to DNR. Pt is otherwise resting in bed with no acute distress. Pt bathed and skin care provided as needed. Pt repositioned every 2 hrs and as needed. Safety maintained throughout. Will continue to monitor.
--- NOTE | 2022-08-23 20:56 | PC.NURSE ---
2100 POC = 138 OUTDOOR ADVENTURE INSTRUCTOR NOTIFIED AND INSTRUCTED TO HOLD LANTUS AT THIS TIME
[2022-08-23 20:57] LABS: Glucose, Whole Blood 138 mg/dL (60-115)
[2022-08-23] MEDS: Lactulose 20 GM/30 ML SOLUTION 30 GM PO (21:00)
[2022-08-23 23:35] LABS: Glucose, Whole Blood 146 mg/dL (60-115)
[2022-08-24] VITALS (26 sets, daily range): BP systolic 86–133; BP diastolic 45–69; PULSE 86–102; RESP 11–40; TEMP 34.4–38.1; O2SAT 92–97; BMI 46.3
[2022-08-24 05:23] LABS: VBG Base Excess 0.8 mmol/L; VBG HCO3 25 mmol/L (22-26); VBG pCO2 38 mmHg; VBG pH 7.42 (7.32-7.43); VBG pO2 49 mmHg
[2022-08-24 05:24] LABS: Glucose, Whole Blood 167 mg/dL (60-115)
[2022-08-24 05:32] LABS: MANUAL DIFF FLAG NO
[2022-08-24 05:40] LABS: Basophils Absolute Auto 0.1 X10*3/uL (0.0-0.2); Basophils Percent Auto 0.4 % (0-2); Eosinophils Absolute Auto 0.2 X10*3/uL (0.0-0.4); Eosinophils Percent Auto 1.5 % (0-4); Hematocrit 29.6 % (37.0-47.0); Hemoglobin 8.9 g/dl (12.0-16.0); Imm Gran Abs Auto 0.16 X10*3/uL (0.00-0.03); Imm Gran Pct Auto 1.3 % (0.0-0.4); Lymphocytes Percent Auto 8.2 % (20-40); Mean Corpuscular HGB Conc 30.1 g/dl (31.0-35.0); Mean Corpuscular Hemoglobin 31.1 pg (27.0-33.0); Mean Corpuscular Volume 103.5 fL (80.0-98.0); Mean Platelet Volume 10.5 fL (9.4-12.3); Monocytes Absolute Auto 1.2 X10*3/uL (0.1-1.2); Monocytes Percent Auto 9.2 % (2-11); Neutrophils Percent Auto 79.4 % (45-73); Platelet Count 225 X10*3/uL (160-400); Red Blood Count 2.86 X10*6/uL (4.20-5.50); White Blood Count 12.6 X10*3/uL (4.8-10.8)
[2022-08-24 05:57] LABS: Albumin Level 2.5 g/dL (3.5-5.0); Anion Gap 11 (12-20); Blood Urea Nitrogen 25 mg/dL (9-16); Calcium 8.6 mg/dL (8.4-10.2); Carbon Dioxide 25 mmol/L (22-29); Chloride 115 mmol/L (96-108); Creatinine Clr Calc Pharmacy 82.5; Estimated Glomerular Filt Rate > 60; Glucose Random 183 mg/dL (60-115); Magnesium 2.3 mg/dL (1.6-2.6); Phosphorus 2.6 mg/dL (2.7-4.5); Potassium 3.7 mmol/L (3.3-5.1); Sodium 147 mmol/L (135-145)
[2022-08-24 06:35] LABS: Venous Blood Gas Refer to POC result
[2022-08-24] MEDS: Chlorhexidine Gluc Oral Rinse 15 ML MOUTHWASH BUCCAL ×2 (07:17→16:14)
[2022-08-24] MEDS: 0.9 % Sodium Chloride Flush 3 ML SYRINGE IVFLUSH ×2 (07:17→16:14)
[2022-08-24] MEDS: Potassium Phosphate/NS 15 MMOL/250 ML PLAST..BAG 62.5 MMOL IV (07:17)
[2022-08-24] MEDS: Sucralfate Oral Suspension 1 GM/10 ML ORAL.SUSP PO (07:17)
[2022-08-24] MEDS: Nystatin Powder 15 GM BOTTLE 1 APPL TOPICAL (07:18)
[2022-08-24 08:46] LABS: Glucose, Whole Blood 204 mg/dL (60-115)
[2022-08-24] MEDS: Insulin Glargine,Hum.rec.anlog 100 UNIT/ML 10 ML VIAL 55 UNIT SUBCUT (08:50)
--- NOTE | 2022-08-24 10:25 | MHC.CM.PN ---
Pt continues care in ICU: on ventilatory support, off sedation with no signs of neurological recovery. In addtion, states pt has end stage R heart failure making her condition grave. MD to address above w/family for GOC determination. CM to follow
[2022-08-24 11:51] LABS: Glucose, Whole Blood 208 mg/dL (60-115)
[2022-08-24] MEDS: Insulin Lispro 100 UNIT/ML 3 ML VIAL SUBCUT (13:07)
--- NOTE | 2022-08-24 15:27 | PM.CCPN ---
Subjective Subjective Date of Service: 08/24/22 Interval History: 72-year-old morbidly obese type 2 diabetic female longstanding COPD and obstructive sleep apnea and obesity hypoventilation and she has developed acute on chronic cor pulmonale with dramatic fluid overload recently diuresed 30 lb regained a 30 lb within a week to 10 days re-presented here in acute on chronic hypercarbic respiratory failure since been diuresed but the problem was she had a witnessed cardiac arrest when being assisted to the bathroom clearly it I did a think a manifestation of acute right heart failure with about as 7 minutes to the bahai of spontaneous circulation and it has been 12 days of intubation and has been no regaining of consciousness off all sedation for the better part of weak with all metabolic issues including most recently the hypernatremia having been corrected and yet no signs of bahai of cognitive function and this negative prognostic issue has been discussed with the sons who made the choice for DNR and in addition she has got end-stage right heart failure with a dramatic right ventricular heave even while on the ventilator being unloaded Chronic atrial fibrillation is her rhythm Critical Care Time (minutes): 35 Physical Exam Vital Signs: Vital Signs: Last Vital Signs Temp 100.0 F 08/24/22 13:00 Pulse 98 08/24/22 14:00 Resp 20 08/24/22 14:00 BP 133/58 L 08/24/22 14:00 Pulse Ox 94 08/24/22 14:00 O2 Del Method 08/24/22 14:00 O2 Flow Rate 4 08/12/22 11:17 FiO2 35 08/24/22 15:13 Oxygen Flow Rate 3 08/10/22 09:54 BMI result Body Mass Index 46.3 Remains unresponsive Bedside echo with small but preserved systolic function left ventricle and a enormous right ventricle with persistent evidence of right heart failure Lungs without adventitious sounds Abdomen is benign soft with no organomegaly and tolerating feedings Objective Data Labs 08/24/22 05:18 08/24/22 05:18 Labs: Laboratory Results - last 24 hr 08/23/22 08/23/22 08/23/22 16:12 17:55 20:54 WBC RBC Hgb Hct MCV MCH MCHC RDW Plt Count MPV Immature Gran % (Auto) Neut % (Auto) Lymph % (Auto) [place] % (Auto) Eos % (Auto) Baso % (Auto) Lymph # (Auto) [place] # (Auto) Eos # (Auto) Baso # (Auto) Abs Immat Gran (auto) Absolute Neuts (auto) Absolute Nucleated RBC Nucleated RBC % (auto) VBG pH VBG pCO2 VBG pO2 VBG HCO3 VBG O2 Saturation VBG Base Excess Sodium Potassium Chloride Carbon Dioxide Anion Gap BUN Creatinine Estim Creat Clear Calc Estimated GFR POC Glucose 104 109 138 H Random Glucose Calcium Phosphorus Magnesium Albumin 08/23/22 08/24/22 08/24/22 23:25 05:16 05:18 WBC 12.6 H RBC 2.86 L Hgb 8.9 L Hct 29.6 L MCV 103.5 H MCH 31.1 MCHC 30.1 L RDW 23.0 H Plt Count 225 MPV 10.5 Immature Gran % (Auto) 1.3 H Neut % (Auto) 79.4 H Lymph % (Auto) 8.2 L [place] % (Auto) 9.2 Eos % (Auto) 1.5 Baso % (Auto) 0.4 Lymph # (Auto) 1.0 L [place] # (Auto) 1.2 Eos # (Auto) 0.2 Baso # (Auto) 0.1 Abs Immat Gran (auto) 0.16 H Absolute Neuts (auto) 10.0 H Absolute Nucleated RBC 0.000 Nucleated RBC % (auto) 0.0 VBG pH 7.42 VBG pCO2 38 VBG pO2 49 VBG HCO3 25 VBG O2 Saturation 80.0 VBG Base Excess 0.8 Sodium Potassium Chloride Carbon Dioxide Anion Gap BUN Creatinine Estim Creat Clear Calc Estimated GFR POC Glucose 146 H Random Glucose Calcium Phosphorus Magnesium Albumin 08/24/22 08/24/22 08/24/22 05:18 05:20 08:43 WBC RBC Hgb Hct MCV MCH MCHC RDW Plt Count MPV Immature Gran % (Auto) Neut % (Auto) Lymph % (Auto) [place] % (Auto) Eos % (Auto) Baso % (Auto) Lymph # (Auto) [place] # (Auto) Eos # (Auto) Baso # (Auto) Abs Immat Gran (auto) Absolute Neuts (auto) Absolute Nucleated RBC Nucleated RBC % (auto) VBG pH VBG pCO2 VBG pO2 VBG HCO3 VBG O2 Saturation VBG Base Excess Sodium 147 H Potassium 3.7 Chloride 115 H Carbon Dioxide 25 Anion Gap 11 L BUN 25 H Creatinine 0.84 Estim Creat Clear Calc 82.5 Estimated GFR > 60 POC Glucose 167 H 204 H Random Glucose 183 H Calcium 8.6 Phosphorus 2.6 L Magnesium 2.3 Albumin 2.5 L 08/24/22 11:44 WBC RBC Hgb Hct MCV MCH MCHC RDW Plt Count MPV Immature Gran % (Auto) Neut % (Auto) Lymph % (Auto) [place] % (Auto) Eos % (Auto) Baso % (Auto) Lymph # (Auto) [place] # (Auto) Eos # (Auto) Baso # (Auto) Abs Immat Gran (auto) Absolute Neuts (auto) Absolute Nucleated RBC Nucleated RBC % (auto) VBG pH VBG pCO2 VBG pO2 VBG HCO3 VBG O2 Saturation VBG Base Excess Sodium Potassium Chloride Carbon Dioxide Anion Gap BUN Creatinine Estim Creat Clear Calc Estimated GFR POC Glucose 208 H Random Glucose Calcium Phosphorus Magnesium Albumin Microbiology Microbiology Results: Microbiology 08/10/22 11:41 Blood - Venous Blood Culture - Final No growth after 5 days. 08/10/22 10:46 Blood - Venous Blood Culture - Final No growth after 5 days. Progress Note: A&P Assessment and plan (1) Acute encephalopathy: Status: Acute (2) Aspiration pneumonitis: Status: Acute (3) CORINNA (acute kidney injury): Status: Acute (4) Acute anemia: Status: Acute (5) Cardiac arrest: Status: Acute (6) Acute on chronic respiratory failure with hypoxia and hypercapnia: Status: Acute (7) Volume overload: Status: Acute (8) Acute exacerbation of congestive heart failure: Status: Acute (9) Hypokalemia: Status: Acute (10) Acute on chronic diastolic (congestive) heart failure: Status: Acute (11) Acute on chronic right-sided heart failure: Status: Acute (12) Edema: Status: Acute (13) CHF (congestive heart failure): Status: Acute (14) Shortness of breath: Status: Acute (15) Decompensated heart failure: Status: Acute (16) Bradycardia: Status: Acute (17) (HFpEF) heart failure with preserved ejection fraction: Status: Acute (18) Chronic atrial fibrillation: Status: Acute (19) Supplemental oxygen dependent: Status: Acute (20) COPD (chronic obstructive pulmonary disease): Status: Acute (21) Lumbar pain: Status: Acute (22) Hospital discharge follow-up: Status: Acute (23) Hypokalemia: Status: Acute (24) Hip pain, right: Status: Acute (25) Diabetic neuropathy: Status: Acute (26) Vitamin D deficiency: Status: Acute (27) HLD (hyperlipidemia): Status: Acute (28) T2DM (type 2 diabetes mellitus): Status: Acute (29) CHCF (current) use of insulin: Status: Acute (30) Phlebitis of left leg: Status: Acute (31) Pulmonary hypertension: Status: Acute (32) Tricuspid regurgitation: Status: Acute (33) HTN (hypertension): Status: Acute (34) Diabetes mellitus: Status: Acute (35) Morbid obesity: Status: Acute (36) CKD (chronic kidney disease): Status: Acute (37) MELANIE (obstructive sleep apnea): Status: Acute Plan So but she has is an is an end-stage right heart failure situation from longstanding chronic severe a normal systemic levels of pulmonary hypertension and the prognosis for a meaningful recovery from that and being anything but is stage IV with recurrent failure is almost nil. 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
[2022-08-24] MEDS: Lidocaine HCl/D5W 2 GM/250 ML IV.SOLN 3.75 GM IVCONT (16:17)
[2022-08-24] MEDS: fentaNYL citrate/NS 1,000 MCG/100 ML PLAST..BAG 2.5 MCG IVCONT (16:55)
[2022-08-24] MEDS: fentaNYL citrate/PF 100 MCG/2 ML VIAL 50 MCG IVPUSH (17:09)
--- NOTE | 2022-08-24 18:00 | P.EN_ITS ---
Event Note Date of Service: 08/24/22 Event Note: RAYMOND Horton called me to pronounce the patient, who was on LEAD [employer]XIDE MILL TENDER measures. I arrived to find the patient unresponsive, pulseless, and without respirations. No cardiac activity on telemetry. Pupils fixed/dilated and corneal reflexes absent. Time of 17:46. Cause of respiratory failure due to cor pulmonale, contributing factors of obesity hypoventilation syndrome, COPD, and MELANIE. Her family was at the bedside and I offered my condolences. Time Spent With Patient Time: Total time managing care of this patient today ____ minutes.
--- NOTE | 2022-08-24 18:36 | PC.NURSE ---
Pt's family decided to convert pt's status fro DNR to EBD TEACHER at 1650. Pt terminally extubated to RA at 1702. TOD/ Asystole at 1746. [facility] called; organ denied and tissue accepted; case #[id number]; spoke with Erinn Ballard, and Marah.
--- NOTE | 2022-10-03 16:56 | PM.DS ---
DS: Providers Provider Date of Service: 08/24/22 Date of admission: 08/10/22 13:33 Primary care physician: Teri Max MD Consults: 08/11/22 07:30 Consult to Cardiology Routine Consulting Provider: Dave Lau Reason for consultation: CHF Has provider been notified: Yes 08/13/22 06:06 Consult to Gastroenterology Routine Consulting Provider: Ava Conroy Reason for consultation: UGIB Has provider been notified: No 08/22/22 08:07 Consult to Neurology Routine Consulting Provider: [facility] Reason for consultation: 10 days post arrest-no cognitive function Has provider been notified: Yes DS: Diagnosis Discharge Diagnosis (1) Acute encephalopathy: Status: Acute (2) Aspiration pneumonitis: Status: Acute (3) CORINNA (acute kidney injury): Status: Acute (4) Acute anemia: Status: Acute (5) Cardiac arrest: Status: Acute (6) Acute on chronic respiratory failure with hypoxia and hypercapnia: Status: Acute (7) Volume overload: Status: Acute (8) Acute exacerbation of congestive heart failure: Status: Acute (9) Hypokalemia: Status: Acute (10) Acute on chronic diastolic (congestive) heart failure: Status: Acute (11) Acute on chronic right-sided heart failure: Status: Acute (12) Edema: Status: Acute (13) CHF (congestive heart failure): Status: Acute (14) Shortness of breath: Status: Acute (15) Decompensated heart failure: Status: Acute (16) Bradycardia: Status: Acute (17) (HFpEF) heart failure with preserved ejection fraction: Status: Acute (18) Chronic atrial fibrillation: Status: Acute (19) Supplemental oxygen dependent: Status: Acute (20) COPD (chronic obstructive pulmonary disease): Status: Acute (21) Lumbar pain: Status: Acute (22) Hospital discharge follow-up: Status: Acute (23) Hypokalemia: Status: Acute (24) Hip pain, right: Status: Acute (25) Diabetic neuropathy: Status: Acute (26) Vitamin D deficiency: Status: Acute (27) HLD (hyperlipidemia): Status: Acute (28) T2DM (type 2 diabetes mellitus): Status: Acute (29) halfway (current) use of insulin: Status: Acute (30) Phlebitis of left leg: Status: Acute (31) Pulmonary hypertension: Status: Acute (32) Tricuspid regurgitation: Status: Acute (33) HTN (hypertension): Status: Acute (34) Diabetes mellitus: Status: Acute (35) Morbid obesity: Status: Acute (36) CKD (chronic kidney disease): Status: Acute (37) MELANIE (obstructive sleep apnea): Status: Acute DS: Summary Hospital Course Hospital Course: The patient was readmitted on August 10 after recent discharge with with a a presentation of marked fluid overload whom really related to progressive end-stage cor pulmonale and during the hospital admission with minimal exertion upon assistance to the bathroom collapsed a clear-cut manifestation of an advanced end-stage acute on chronic cor pulmonale from end-stage lung disease a combination of longstanding obesity/hypoventilation and sleep apnea COPD and pulmonary fibrosis and after prolonged 12 days of intubation still no signs of cognitive return in addition to which the patient and already having end-stage and systemic levels of pulmonary hypertension with dramatically advanced cor pulmonale dilated failing right ventricle with 4+ tricuspid regurgitation I had discussion with 2 sons and said that even should she recover which is almost an impossibility in terms of cognitive function she would be a hemodynamic class 4 and completely bed ridden and the sons decided that clearly this was absolutely contrary to her expressed wishes before coming to the hospital and decided initially on do not resuscitate and after conference Yip overnight came back and expressed a desire for comfort measures and on August 24 the patient clearly became apneic and asystolic and was pronounced Time Spent with Patient Time attestation: Total time managing care of this patient today ____ minutes. Discharge coordination time: Greater than 30 minutes Quality: Safe Use of Opioids Does Pt have an Active Cancer Diagnosis on the Problem List?: No Quality: Stroke Does the patient have a stroke diagnosis?: Yes Reason for No Anti-thrombotic at DC: Contraindicated Reason for No Anticoagulant at DC: Contraindicated Reason Not Initiating IV-Tpa: Contraindicated Reason for No Anti-thrombotic by Day Two: Contraindicated Reason for No Statin at DC: Not indicated Physical Exam Vital Signs: Vital Signs: Last Vital Signs Temp 100.2 F 08/24/22 16:00 Pulse 93 08/24/22 17:00 Resp 40 H 08/24/22 17:10 BP 117/63 08/24/22 16:00 Pulse Ox 93 08/24/22 16:00 O2 Del Method 08/24/22 16:00 O2 Flow Rate 4 08/12/22 11:17 FiO2 35 08/24/22 16:00 Oxygen Flow Rate 3 08/10/22 09:54 BMI result Body Mass Index 46.3 DS: Data Data Completed and Pending Completed studies during hospitalization [Text1]: Procedures Assistance with Respiratory Ventilation, Less than 24 Consecutive Hours, Continuous Positive Airway Pressure (07/04/22) Insertion of Endotracheal Airway into Trachea, Via Natural or Artificial Opening (08/10/22) Insertion of Infusion Device into Superior Vena Cava, Percutaneous Approach (08/10/22) Introduction of Vasopressor into Peripheral Vein, Percutaneous Approach (08/10/22) Monitoring of Venous Pressure, Central, Percutaneous Approach (08/10/22) Performance of Cardiac Output, Single, Manual (08/10/22) Respiratory Ventilation, Greater than 96 Consecutive Hours (08/10/22) Ultrasonography of Superior Vena Cava, Guidance (08/10/22) Discharge Plan Discharge Date/Time: 08/24/22 17:46 Patient Disposition: Discharge Diagnosis: End-stage chronic lung disease Longstanding obesity/hypoventilation Acute on chronic cor pulmonale Large left middle cerebral artery CVA Persistent encephalopathy Referrals: Teri Max MD [Primary Care Provider] - 1 Week Discharge Medications: No Action (DME) OneTouch Ultra Blue Test Strip Strip See Rx Instructions .ROUTE .MEDSUPPLY Qty: 100 11RF Rx Instructions: 4x daily (DME) lancets [OneTouch Delica Plus Lancet] 33 gauge misc See Rx Instructions .ROUTE .MEDSUPPLY Qty: 100 11RF Rx Instructions: 4x daily (DME) FreeStyle Santiago 14 Day Sensor Kit See Rx Instructions .Route Qty: 2 11RF Rx Instructions: As directed albuterol sulfate 90 mcg/actuation HFA aerosol inhaler 2 puff inhalation Q6H PRN (Reason: shortness of breath or wheezing) Qty: 1 0RF Jardiance 10 mg tablet 10 mg PO DAILY Qty: 90 3RF pravastatin 20 mg tablet 20 mg PO BEDTIME Qty: 90 0RF gabapentin 300 mg capsule 300 mg PO TID 90 Days Qty: 270 0RF insulin aspart U-100 [Novolog FlexPen U-100 Insulin] 100 unit/mL (3 mL) insulin pen 4 - 12 unit subcut TIDAC Rx Instructions: 12 in the morning, 8 at lunch and 4 at dinner insulin glargine [Basaglar KwikPen U-100 Insulin] 100 unit/mL (3 mL) insulin pen 35 unit SUBCUT DAILY 90 Days Qty: 31.5 11RF Rx Instructions: JOHANA, no substitutions. (DME) pen needle, diabetic [BD Ultra-Fine Linda Pen Needle] 32 gauge x 5/32 needle See Rx Instructions .Route Qty: 100 11RF Rx Instructions: 4x daily fluticasone propion-salmeterol [Advair Diskus] 500-50 mcg/dose blister with device 1 inh PO BID Qty: 180 1RF torsemide 20 mg tablet 80 mg PO BID 90 Days Qty: 720 1RF metolazone 2.5 mg tablet 2.5 mg PO DAILY 90 Days Qty: 90 1RF potassium chloride 20 mEq tablet,ER particles/crystals 80 meq PO BID 30 Days Qty: 240 5RF Victoza 2-Rj 0.6 mg/0.1 mL (18 mg/3 mL) pen injector See Rx Instructions subcut .COMPLEX 30 Days Qty: 6 11RF Rx Instructions: inject 0.6mg subcutaneously once daily x 7 days; then 1.2mg daily, not to exceed 1.8mg/day subcut spironolactone 25 mg tablet 12.5 mg PO DAILY Protocol: Hold for SBP< HOLD for SBP < : 90 Xarelto 15 mg tablet 15 mg PO DAILY@1800 Spiriva with HandiHaler 18 mcg Capsule, W/Inhalation Device 18 mcg inhalation RDAILY Qty: 30 0RF multivitamin Tablet 1 tab PO DAILY docusate sodium [Colace] 100 mg capsule 100 mg PO DAILY cholecalciferol (vitamin D3) 25 mcg (1,000 unit) capsule 25 mcg PO DAILY zinc acetate 50 mg (zinc) capsule 50 mg PO DAILY Rx Instructions: swallow whole; do not chew/break/dissolve/open vitamin B complex Tablet 1 tab PO DAILY ferrous sulfate [Feosol] 325 mg (65 mg iron) tablet 325 mg PO DAILY allopurinol 100 mg tablet 100 mg PO DAILY Discharge Date/Time: 08/24/22 17:46
== END 2022-08-24 17:46 | disposition expired | DRG 291 ==
LOC: HO.ED 10:27 → HO.EDOVER 13:46 → HO.IMC 14:54 → HO.ICU 08-12 18:52
PROVIDERS: Family Medicine; Hospitalist; Internal Medicine Cardiovascular Disease; Nurse Practitioner Family; Physician Assistant; Physician Assistant Medical; Registered Nurse Community Health; Student in an Organized Health Care Education/Training Program; Admitting Provider Student in an Organized Health Care Education/Training Program; Emergency Provider Emergency Medicine; PCP Internal Medicine; Visit Provider Internal Medicine Pulmonary Disease
DX: I13.0 Hypertensive heart and chronic kidney disease with heart failure and stage 1 through stage 4 chronic kidney disease, or unspecified chronic kidney disease (principal); G92.8 Other toxic encephalopathy; I50.33 Acute on chronic diastolic (congestive) heart failure; J96.22 Acute and chronic respiratory failure with hypercapnia; J96.21 Acute and chronic respiratory failure with hypoxia; J69.0 Pneumonitis due to inhalation of food and vomit; I63.512 Cerebral infarction due to unspecified occlusion or stenosis of left middle cerebral artery; G93.1 Anoxic brain damage, not elsewhere classified; N17.9 Acute kidney failure, unspecified; Z68.42 Body mass index [BMI] 45.0-49.9, adult; I48.20 Chronic atrial fibrillation, unspecified; E87.20 Acidosis, unspecified; E87.3 Alkalosis; K92.0 Hematemesis; D68.32 Hemorrhagic disorder due to extrinsic circulating anticoagulants; E66.2 Morbid (severe) obesity with alveolar hypoventilation; E11.22 Type 2 diabetes mellitus with diabetic chronic kidney disease; N18.30 Chronic kidney disease, stage 3 unspecified; I07.1 Rheumatic tricuspid insufficiency; I95.9 Hypotension, unspecified; I50.84 End stage heart failure; I46.8 Cardiac arrest due to other underlying condition; I27.20 Pulmonary hypertension, unspecified; S20.214A Contusion of middle front wall of thorax, initial encounter; Z66 Do not resuscitate; Y84.9 Medical procedure, unspecified as the cause of abnormal reaction of the patient, or of later complication, without mention of misadventure at the time of the procedure; E88.09 Other disorders of plasma-protein metabolism, not elsewhere classified; G31.9 Degenerative disease of nervous system, unspecified; T45.515A Adverse effect of anticoagulants, initial encounter; I50.813 Acute on chronic right heart failure; Z51.5 Encounter for palliative care; I27.81 Cor pulmonale (chronic); Z91.14 Patient's other noncompliance with medication regimen; Z20.822 Contact with and (suspected) exposure to COVID-19; Z87.891 Personal history of nicotine dependence; Z88.5 Allergy status to narcotic agent; Z79.4 Long term (current) use of insulin; Z79.01 Long term (current) use of anticoagulants; Z79.51 Long term (current) use of inhaled steroids; Z79.899 Other long term (current) drug therapy
CPT/HCPCS: 0241U; 36415; 70450; 71045; 80048; 80053; 80076; 80162; 81003; 82040; 82803; 82947; 83605; 83735; 83880; 83935; 84100; 84145; 84484; 85014; 85018; 85025; 85027; 85610; 85730; 87040; 93005; 93306; 93970; 94002; 94003; 94640; 94660; 95816; 99285; C1758; J0171; J0282; J0283; J1160; J1885; J1940; J2250; J2543; J3010; J3475; P9047; Q9957